=== PATIENT | female | born 1970 | race Caucasian/White ===

== ENCOUNTER 2020-07-07 07:44 | Emergency (ER) | payer OTHER, SELFPAY ==
--- NOTE | 2020-07-07 07:58 | ED_ITS ---
HPI - Back Pain/Injury General Chief Complaint: Back Pain/Injury Stated Complaint: BACK PAIN X'S WEEKS ,NO INJURY Time Seen by Provider: 07/07/20 07:58 Source: patient, EMS and old records reviewed Mode of arrival: EMS Limitations: no limitations History of Present Illness MD elicited complaint: back pain Pertinent past history: prior back pain Onset (ago): month(s) (2+) Timing: constant Severity: similar to previous episodes Quality: sharp Location: lumbar spine Radiation: buttocks and left upper leg Exacerbating factors: movement Relieving factors: none Context: unknown Associated symptoms: numbness (feels tingling in left upper thigh) Treatments prior to arrival: prescription analgesics (she takes oxycontin 20mg BID daily and PRN 10mg oxycodone - states no relief of pain) Work related injury: No Related Data Home Medications Medication Instructions Recorded Confirmed amlodipine 10 mg PO DAILY 07/07/20 07/07/20 aspirin 81 mg PO DAILY 07/07/20 07/07/20 bupropion HCl 300 mg PO DAILY@1200 07/07/20 07/07/20 chlorthalidone 25 mg PO DAILY 07/07/20 07/07/20 cholecalciferol (vitamin D3) 4,000 unit PO DAILY 07/07/20 07/07/20 [Vitamin D3] docusate sodium 100 mg PO BID 07/07/20 07/07/20 dulaglutide [Trulicity] 1.5 mg SUBCUT Q7D 07/07/20 07/07/20 finasteride 5 mg PO DAILY 07/07/20 07/07/20 gabapentin 300 mg PO DAILY@1200 07/07/20 07/07/20 gabapentin 600 mg PO BID 07/07/20 07/07/20 insulin aspart U-100 [Novolog See Protocol SUBCUT QIDACHS 07/07/20 07/07/20 Flexpen U-100 Insulin] lamotrigine 200 mg PO DAILY 07/07/20 07/07/20 lisinopril 5 mg PO DAILY 07/07/20 07/07/20 loratadine 10 mg PO DAILY 07/07/20 07/07/20 lorazepam 1 tab PO TID PRN 07/07/20 07/07/20 nabumetone 500 tab PO BID 07/07/20 07/07/20 nystatin [Nyamyc] 1 applic TOPICAL QID 07/07/20 07/07/20 oxybutynin chloride 10 mg PO DAILY 07/07/20 07/07/20 oxycodone 10 mg PO DAILY PRN 07/07/20 07/07/20 oxycodone [OxyContin] 10 mg PO BID 07/07/20 07/07/20 propranolol 12 mg PO DAILY 07/07/20 07/07/20 quetiapine 25 mg PO BID@0800,1300 07/07/20 07/07/20 quetiapine [Seroquel] 50 mg PO BEDTIME 07/07/20 07/07/20 rosuvastatin 40 mg PO DAILY 07/07/20 07/07/20 zolpidem 10 mg PO BEDTIME PRN 07/07/20 07/07/20 Allergies Allergy/AdvReac Type Severity Reaction Status Date / Time metformin Allergy Severe Unknown Verified 07/07/20 08:27 acetaminophen [From TYLENOL] Allergy Unknown HIVES Verified 07/07/20 08:27 clonazepam [From KLONOPIN] Allergy Unknown HIVES Verified 07/07/20 08:27 Review of Systems Review of Systems: Constitutional : No Weight loss, No Fever, No Chills, ENT/Mouth : No Hearing loss, No Ear Pain, No Nasal Congestion Cardiovascular : No Chest Pain, No SOB Respiratory : No Cough, No Dyspnea Gastrointestinal : No Nausea, No Vomiting, No Diarrhea, No abdominal Pain Genitourinary : No Dysuria, No Urinary Frequency, No Hematuria Musculoskeletal : positive back pain Skin : No Skin Lesions, No rash Neuro : No Weakness, no loss of bowel or bladder incontinence, no saddle anesthesia, tingling in left upper thigh PMFSH Past Medical History Medical History (Updated 07/07/20 @ 14:43 by Erika Nina DO) Agoraphobia Anxiety Asthma Borderline personality disorder Chronic back pain Depression Diabetes Obesity Surgical History (Updated 07/07/20 @ 08:02 by Erika Nina DO) H/O oophorectomy History of appendectomy Social History Social History (Updated 07/07/20 @ 08:02 by Erika Nina DO) Smoking Status: Current every day smoker Use of substances other than those prescribed or required for medical reasons: No Advance Directives: No Advance Directives Information Provided: No Physical Exam Vital Signs: Vital Signs: Vital Signs Pulse Resp BP Pulse Ox 07/07/20 11:12 100 144/66 H 97 07/07/20 10:08 100 17 144/66 H 97 07/07/20 09:11 107 H 18 136/67 97 07/07/20 07:59 114 H 17 149/70 H 97 Body Mass Index 45.6 Appearance: Alert. Oriented X3. Anxious tearful, mild distress. Eyes: Pupils equal, round and reactive to light. ENT: Pharynx normal. Neck: Normal inspection. Neck supple. CVS: Normal heart rate and rhythm. Pulses normal. Respiratory: No respiratory distress. Breath sounds normal. Abdomen: Soft and nontender. Back: ttp along lower back Skin: Skin warm and dry. Normal skin color. Normal skin turgor. Extremities: No lower extremity edema. No calf ttp Neuro: Oriented X 3. No motor deficit. No sensory deficit. L5/5 bilaterally Course Course Course Narrative: even with dilaudid and ativan prior to MRI she refused unsure at this time how to further proceed will offer rehab as symptoms > 1 month, no b/b incontinence, no saddle anesthesia does have numbness per her reports of left upper thigh but this is > 1 month doubt CE and she refuses MRI, she wants rehab at this time - PT and CM ordered Reevaluation(s) Reevaluation #1: patient was offered assisted rehab but she refused, she now states she wants to leave, she has been up on her own to the bathroom and she has also sat up on her own, at this time due to not being able to find the rehab she wants she is getting up and leaving the department MDM - Back Pain/Injury MDM Narrative Medical decision making narrative: 49 yo female with hx of chronic back pain no IVDA, no fevers, no AC therapy reports her pain is so severe with LLE tingling in thigh that she cannot get out of bed or leave her house, she is on high dose narcotics already, at this time will need basic labs, IV pain medications, MRI to assess for impingement given her degree of pain. Lab Data Result diagrams: 07/07/20 08:20 07/07/20 08:20 Labs: Lab Results 07/07/20 07/07/20 07/07/20 Range/Units 08:20 08:20 08:20 WBC 13.9 H (4.8-10.8) X10*3/uL RBC 4.51 (4.20-5.50) X10*6/uL Hgb 13.7 (12.0-16.0) g/dl Hct 39.9 (37-47) % MCV 88.5 (80-98) fL MCH 30.4 (27.0-33.0) pg MCHC 34.3 (31.0-35.0) g/dl RDW 13.0 (11.0-16.0) % Plt Count 324 (160-400) X10*3/uL MPV 9.8 (9.4-12.3) fL Immature Gran % (Auto) 0.4 (0.0-0.4) % Neut % (Auto) 86.8 H (45-73) % Lymph % (Auto) 8.5 L (20-40) % [place] % (Auto) 3.2 (2-11) % Eos % (Auto) 0.8 (0-4) % Baso % (Auto) 0.3 (0-2) % Lymph # (Auto) 1.2 (1.2-4.9) X10*3/uL [place] # (Auto) 0.5 (0.1-1.2) X10*3/uL Eos # (Auto) 0.1 (0.0-0.4) X10*3/uL Baso # (Auto) 0.0 (0.0-0.2) X10*3/uL Abs Immat Gran (auto) 0.05 H (0.00-0.03) X10*3/uL Absolute Neuts (auto) 12.1 H (2.0-8.3) X10*3/uL Absolute Nucleated RBC 0.000 (0.0-0.012) X10*3/uL Nucleated RBC % (auto) 0.0 (0.0-0.2) /100WBC Hold Blue Top SEE NOTE Sodium 130 L (135-145) mmol/L Potassium 4.7 (3.3-5.1) mmol/l Chloride 94 L (96-108) mmol/L Carbon Dioxide 21 L (22-29) mmol/L Anion Gap 20 (12-20) BUN 14 (9-16) mg/dL Creatinine 1.04 (0.5-1.4) mg/dL Estim Creat Clear Calc 95.8 Estimated GFR 56 Random Glucose 381 H* (60-115) mg/dL Calcium 10.0 (8.4-10.2) mg/dL Magnesium 1.7 (1.6-2.6) mg/dL Urine Color Urine Appearance Urine pH Ur Specific [place] Urine Protein Urine Glucose (UA) Urine Ketones Urine Blood Urine Nitrite Ur Leukocyte Esterase Urine RBC Urine WBC Urine WBC Clumps Ur Squamous Epith Cells Ur Renal Epithelial Cell Urine Crystals [place] Biurate Crystals Calcium Carbonate Cryst Calcium Phosphate Cryst Calcium Oxalate Crystal Leucine Crystals Cystine Crystals Uric Acid Crystals Triple Phos Crystals Tyrosine Crystals Other Crystals Amorphous Sediment Urine Bacteria Epithelial Casts Fatty Casts Hyaline Casts Granular Casts Waxy Casts RBC Casts WBC Casts Other Casts Urine Mucus Urine Trichomonas Urine Yeast Urine Sperm Ur Oval Fat Bodies Coronavirus (PCR) (Negative) 07/07/20 07/07/20 07/07/20 Range/Units 10:31 10:31 12:57 WBC (4.8-10.8) X10*3/uL RBC (4.20-5.50) X10*6/uL Hgb (12.0-16.0) g/dl Hct (37-47) % MCV (80-98) fL MCH (27.0-33.0) pg MCHC (31.0-35.0) g/dl RDW (11.0-16.0) % Plt Count (160-400) X10*3/uL MPV (9.4-12.3) fL Immature Gran % (Auto) (0.0-0.4) % Neut % (Auto) (45-73) % Lymph % (Auto) (20-40) % [place] % (Auto) (2-11) % Eos % (Auto) (0-4) % Baso % (Auto) (0-2) % Lymph # (Auto) (1.2-4.9) X10*3/uL [place] # (Auto) (0.1-1.2) X10*3/uL Eos # (Auto) (0.0-0.4) X10*3/uL Baso # (Auto) (0.0-0.2) X10*3/uL Abs Immat Gran (auto) (0.00-0.03) X10*3/uL Absolute Neuts (auto) (2.0-8.3) X10*3/uL Absolute Nucleated RBC (0.0-0.012) X10*3/uL Nucleated RBC % (auto) (0.0-0.2) /100WBC Hold Blue Top Sodium (135-145) mmol/L Potassium (3.3-5.1) mmol/l Chloride (96-108) mmol/L Carbon Dioxide (22-29) mmol/L Anion Gap (12-20) BUN (9-16) mg/dL Creatinine (0.5-1.4) mg/dL Estim Creat Clear Calc Estimated GFR Random Glucose (60-115) mg/dL Calcium (8.4-10.2) mg/dL Magnesium (1.6-2.6) mg/dL Urine Color Cancelled YELLOW Urine Appearance Cancelled HAZY Urine pH Cancelled 6.0 Ur Specific [place] Cancelled 1.015 Urine Protein Cancelled 1+ H Urine Glucose (UA) Cancelled 250 H Urine Ketones Cancelled 5 Urine Blood Cancelled NEG Urine Nitrite Cancelled NEG Ur Leukocyte Esterase Cancelled NEG Urine RBC Cancelled 0-2 Urine WBC Cancelled 0-2 Urine WBC Clumps Cancelled Ur Squamous Epith Cells Cancelled 2+ Ur Renal Epithelial Cell Cancelled Urine Crystals Cancelled [place] Biurate Crystals Cancelled Calcium Carbonate Cryst Cancelled Calcium Phosphate Cryst Cancelled Calcium Oxalate Crystal Cancelled Leucine Crystals Cancelled Cystine Crystals Cancelled Uric Acid Crystals Cancelled Triple Phos Crystals Cancelled Tyrosine Crystals Cancelled Other Crystals Cancelled Amorphous Sediment Cancelled Urine Bacteria Cancelled TRACE Epithelial Casts Cancelled Fatty Casts Cancelled Hyaline Casts Cancelled Granular Casts Cancelled Waxy Casts Cancelled RBC Casts Cancelled WBC Casts Cancelled Other Casts Cancelled Urine Mucus Cancelled Urine Trichomonas Cancelled Urine Yeast Cancelled Urine Sperm Cancelled Ur Oval Fat Bodies Cancelled Coronavirus (PCR) NEGATIVE (Negative) ECG Data Attestation: I personally reviewed and interpreted this ECG as follows: ECG interpretation date: 07/07/20 ECG interpretation time: 08:58 Interpretation: Rate: 110 Rhythm: sinus tachycardia [place]: normal Normal P waves. Normal RASHI. Normal QRS complex. ST T wave : normal qTC: normal prior studies: normal, no acute ischemia The study has been interpreted contemporaneously by me. . 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 Prescriptions: No Action nystatin [Nyamyc] 100,000 unit/gram powder 1 applic topical QID RF: 0 insulin aspart U-100 [Novolog Flexpen U-100 Insulin] 100 unit/mL (3 mL) insulin pen See Protocol unit subcut QIDACHS RF: 0 oxycodone [OxyContin] 20 mg tablet,oral only,ext.rel.12 hr 10 mg PO BID RF: 0 Trulicity 1.5 mg/0.5 mL pen injector 1.5 mg subcut Q7D RF: 0 quetiapine 25 mg tablet 25 mg PO BID@0800,1300 RF: 0 lamotrigine 200 mg tablet 200 mg PO DAILY RF: 0 oxybutynin chloride 10 mg tablet extended release 24hr 10 mg PO DAILY RF: 0 chlorthalidone 25 mg tablet 25 mg PO DAILY RF: 0 aspirin 81 mg tablet,delayed release (DR/EC) 81 mg PO DAILY RF: 0 lorazepam 2 mg tablet 1 tab PO TID PRN (Reason: Anxiety) RF: 0 amlodipine 10 mg tablet 10 mg PO DAILY RF: 0 docusate sodium 100 mg capsule 100 mg PO BID RF: 0 lisinopril 5 mg tablet 5 mg PO DAILY RF: 0 propranolol 120 mg capsule,extended release 24 hr 12 mg PO DAILY RF: 0 zolpidem 10 mg tablet 10 mg PO BEDTIME PRN (Reason: Insomnia) RF: 0 finasteride 5 mg tablet 5 mg PO DAILY RF: 0 loratadine 10 mg tablet 10 mg PO DAILY RF: 0 nabumetone 500 mg tablet 500 tab PO BID RF: 0 rosuvastatin 40 mg tablet 40 mg PO DAILY RF: 0 bupropion HCl 300 mg tablet extended release 24 hr 300 mg PO DAILY@1200 RF: 0 oxycodone 10 mg tablet 10 mg PO DAILY PRN (Reason: Pain (Scale Score 4-6)) RF: 0 cholecalciferol (vitamin D3) [Vitamin D3] 50 mcg (2,000 unit) capsule 4,000 unit PO DAILY RF: 0 quetiapine [Seroquel] 50 mg Tablet 50 mg PO BEDTIME RF: 0 gabapentin 300 mg Capsule 300 mg PO DAILY@1200 RF: 0 gabapentin 300 mg Tablet 600 mg PO BID RF: 0 Referrals: Physician,Unknown [Primary Care Provider] - 2 days
[2020-07-07 07:59] VITALS: BP 149/70; PULSE 114; PULSE 125; RESP 17; O2SAT 97; O2SAT 99; BMI 45.6
[2020-07-07 08:25] LABS: MANUAL DIFF FLAG NO
[2020-07-07 08:26] LABS: Basophils Percent Auto 0.3 % (0-2); Eosinophils Absolute Auto 0.1 X10*3/uL (0.0-0.4); Eosinophils Percent Auto 0.8 % (0-4); Hematocrit 39.9 % (37-47); Hemoglobin 13.7 g/dl (12.0-16.0); Imm Gran Abs Auto 0.05 X10*3/uL (0.00-0.03); Imm Gran Pct Auto 0.4 % (0.0-0.4); Lymphocytes Absolute Auto 1.2 X10*3/uL (1.2-4.9); Lymphocytes Percent Auto 8.5 % (20-40); Mean Corpuscular HGB Conc 34.3 g/dl (31.0-35.0); Mean Corpuscular Hemoglobin 30.4 pg (27.0-33.0); Mean Corpuscular Volume 88.5 fL (80-98); Mean Platelet Volume 9.8 fL (9.4-12.3); Monocytes Absolute Auto 0.5 X10*3/uL (0.1-1.2); Monocytes Percent Auto 3.2 % (2-11); Neutrophils Absolute Auto 12.1 X10*3/uL (2.0-8.3); Neutrophils Percent Auto 86.8 % (45-73); Platelet Count 324 X10*3/uL (160-400); Red Blood Count 4.51 X10*6/uL (4.20-5.50); White Blood Count 13.9 X10*3/uL (4.8-10.8)
[2020-07-07] MEDS: Cyclobenzaprine HCl 10 MG TABLET PO (08:28)
[2020-07-07] MEDS: HYDROmorphone HCl 1 MG/ML SYRINGE IVPUSH ×2 (08:29→09:55)
--- NOTE | 2020-07-07 09:00 | ECG_ITS ---
Test Reason : BACK PAIN Blood Pressure : / mmHG Vent. Rate : 110 BPM Atrial Rate : 110 BPM P-R Int : 132 ms QRS Dur : 078 ms QT Int : 384 ms P-R-T Axes : 079 042 053 degrees QTc Int : 519 ms Sinus tachycardia RSR' or QR pattern in V1 suggests right ventricular conduction delay Borderline ECG When compared with ECG of 15-MAY-2020 16:38, Heart rate has increased Referred By: Erika Nina Electronically Signed By:NICOLE GONZALEZ MD
[2020-07-07 09:03] LABS: Anion Gap 20 (12-20); Blood Urea Nitrogen 14 mg/dL (9-16); Carbon Dioxide 21 mmol/L (22-29); Chloride 94 mmol/L (96-108); Creatinine Clr Calc Pharmacy 95.8; Estimated Glomerular Filt Rate 56; Glucose Random 381 mg/dL (60-115); Magnesium 1.7 mg/dL (1.6-2.6); Potassium 4.7 mmol/l (3.3-5.1); Sodium 130 mmol/L (135-145)
[2020-07-07 09:11] VITALS: BP 136/67; PULSE 107; RESP 18; O2SAT 97
[2020-07-07] MEDS: 0.9 % Sodium Chloride 1,000 ML 999 ML IVCONT (09:21)
[2020-07-07] MEDS: Insulin Regular, Human 100 UNIT/ML 3 ML VIAL SUBCUT (09:21)
[2020-07-07] MEDS: Ibuprofen 400 MG TABLET PO (09:24)
[2020-07-07] MEDS: LORazepam 2 MG/ML VIAL 1 MG IVPUSH (09:55)
[2020-07-07 10:08] VITALS: BP 144/66; PULSE 100; RESP 17; O2SAT 97
[2020-07-07 10:52] LABS: Glucose Urine UA 250 MG/DL (NEG); Leukocyte Esterase Urine NEG (NEG); Nitrite Urine NEG (NEG); Specific Gravity - Urine 1.015 (1.005-1.025); Urine Blood NEG (NEG); Urine Ketones 5 MG/DL (NEG); Urine Protein 1+ MG/DL (NEG-TRACE)
[2020-07-07 10:54] LABS: Appearance Urine HAZY; Color Urine YELLOW
[2020-07-07 11:00] LABS: Bacteria Urine TRACE /LPF; RBC Urine 0-2 /HPF (0); Squamous Epithelial Cell Urine 2+ /LPF; WBC Urine 0-2 /HPF (0-4)
[2020-07-07 11:12] VITALS: BP 144/66; PULSE 100; O2SAT 97
--- NOTE | 2020-07-07 11:18 | PC.NURSE ---
INTRODUCED SELF TO PT, REPORTING TOLERATING PAIN AT THIS TIME 6/10 MID BACK PAIN, LYING ON R SIDE. JUST SEEN BY PT.
--- NOTE | 2020-07-07 12:32 | PC.NURSE ---
PER FRANCISCO CASE MGMT, PT RQUESTING REHAB PLACEMENT. POSSIBLY GOING TO [facility]. MED REC REQUESTED PT WANTING PB&J. REMAINS IN PAIN. DIFFICULT TO CONSOLE.
--- NOTE | 2020-07-07 13:06 | MHC.CM.ED ---
MET WITH PT. PT AGREEABLE TO SNF, BUT TEARFUL.HISTORY OF BACK PAIN SINCE APRIL AND FEELS HOPELESS. HAS AGORAPHOBIA AND HAS CONCERNS ABOUT SNF PLACEMENT WILL SEND REFERRAL TO SNF.
[2020-07-07 14:03] LABS: SARS COV2 PCR INHOUSE NEGATIVE (Negative)
--- NOTE | 2020-07-07 14:32 | MHC.CM.ED ---
Pt eligible for LTC with payment monthly of $877/month, not eligible for SNL for rehab. Pt very tearful, very upset. States she cannot afford to go the LTC and states she cannot go home. Requesting to call family member. States all she can do is come back to ED. Dr. Nina aware. Medically cleared for discharge. Pt. chooses to leave against medical advice. aware. RN aware.
--- NOTE | 2020-07-07 14:35 | PC.NURSE ---
PT VERY UPSET, TEARFUL ABOUT COST OF ATTENDING REHAB.
--- NOTE | 2020-07-07 15:00 | PC.NURSE ---
PT INSISTING ON LEAVING AMA, DISGRUNTLED WITH FINANCIAL BURDEN OF HOME [facility]. HER ARRRIVED TO PICK HER UP, PT REFUSED TO WAIT, STATING I CAN'T LEAVE HIM WAITING, HE'S JUST GONNA LEAVE ME . PT BECOMING INCREASINGLY AGITATED AND DISMISSIVE OF ALL STAFF.
== END 2020-07-07 14:30 | disposition left against medical advice (07) ==
PROVIDERS: Emergency Provider Emergency Medicine
DX: M54.42 Lumbago with sciatica, left side (principal); Z20.828 Contact with and (suspected) exposure to other viral communicable diseases; E11.9 Type 2 diabetes mellitus without complications; F60.3 Borderline personality disorder; F17.200 Nicotine dependence, unspecified, uncomplicated
CPT/HCPCS: 36415; 80048; 81001; 83735; 85025; 87635; 93005; 96361; 96374; 96375; 96376; 97162; 99284; J1170; J2060

== ENCOUNTER 2021-03-28 21:41 | Emergency (ER) | payer OTHER, SELFPAY ==
--- NOTE | ~2021-03-28 | CT_ITS ---
EXAMINATION: CT ABDOMEN AND PELVIS WITHOUT CONTRAST CLINICAL INFORMATION: Left flank pain COMPARISON: None TECHNIQUE: Multidetector volumetric imaging was performed from the superior aspect of the liver through the pubic symphysis. Sagittal and coronal reformatted images were obtained on the technologist's workstation. This CT examination was performed using dose optimization techniques as appropriate, variously including the following: *Automated exposure control *Adjustment of mA and/or kV according to patient size (this includes techniques or standardized protocols for targeted exams where dose is matched to indication/reason for exam; i.e. extremities or head) *Use of iterative reconstruction technique DLP: 1482 mGy-cm FINDINGS: LUNG BASES: The visualized lung bases are unremarkable. LIVER, GALLBLADDER, AND BILIARY TREE: The liver is normal in size and shape with decreased attenuation. No focal hepatic lesion or biliary ductal dilatation is present. The gallbladder is unremarkable with no evidence of radiopaque gallstones, gallbladder wall thickening, or obvious pericholecystic inflammatory changes. PANCREAS: Unremarkable. SPLEEN: Unremarkable. ADRENAL GLANDS: Unremarkable. KIDNEYS AND URETERS: The kidneys are normal in size, shape, and attenuation. No hydronephrosis, hydroureter, or calculi seen. No perinephric stranding. BLADDER: Unremarkable. GASTROINTESTINAL TRACT: The stomach is unremarkable. Normal caliber small bowel. No obstruction. There is colonic diverticulosis without diverticulitis. The appendix is not seen. No inflammatory changes of the cecum to suggest appendicitis. No free air or free fluid. ABDOMINAL WALL: No significant hernia is appreciated. LYMPH NODES: Normal. VASCULAR: Normal caliber aorta with mild atherosclerotic calcification. PELVIC VISCERA: The uterus and adnexa are unremarkable. OSSEOUS STRUCTURES: No acute or suspicious osseous abnormality. Mild degenerative changes of the spine. CT/CT abdomen pelvis wo con IMPRESSION: Hepatic steatosis. No acute findings in the abdomen or pelvis. No hydronephrosis or nephrolithiasis.
[2021-03-28 22:00] VITALS: BP 160/70; BP 173/79; PULSE 117; PULSE 87; RESP 18; TEMP 37.1; O2SAT 98; BMI 63.8
--- NOTE | 2021-03-28 22:36 | ED.FEMALEGU ---
HPI - Female Genitourinary General Chief complaint: Urogenital-Female Stated complaint: flank pain x 3 days Time Seen by Provider: 03/28/21 22:36 Source: patient Mode of arrival: EMS Limitations: no limitations History of Present Illness HPI Narrative: Patient history of chronic low back pain on oxycodone and OxyContin complaining of increased pain and left flank for last 3 days with dysuria and frequency patient diabetic and does get UTI very often no nausea no vomiting no abdominal pain no fever or chills no history of kidney stone in the past no hematuria no vaginal discharge Related Data Home Medications Medication Instructions Recorded Confirmed amlodipine 10 mg PO DAILY 07/07/20 07/07/20 aspirin 81 mg PO DAILY 07/07/20 07/07/20 bupropion HCl 300 mg PO DAILY@1200 07/07/20 07/07/20 chlorthalidone 25 mg PO DAILY 07/07/20 07/07/20 cholecalciferol (vitamin D3) 4,000 unit PO DAILY 07/07/20 07/07/20 [Vitamin D3] docusate sodium 100 mg PO BID 07/07/20 07/07/20 dulaglutide [Trulicity] 1.5 mg SUBCUT Q7D 07/07/20 07/07/20 finasteride 5 mg PO DAILY 07/07/20 07/07/20 gabapentin 300 mg PO DAILY@1200 07/07/20 07/07/20 gabapentin 600 mg PO BID 07/07/20 07/07/20 insulin aspart U-100 [Novolog See Protocol SUBCUT QIDACHS 07/07/20 07/07/20 Flexpen U-100 Insulin] lamotrigine 200 mg PO DAILY 07/07/20 07/07/20 lisinopril 5 mg PO DAILY 07/07/20 07/07/20 loratadine 10 mg PO DAILY 07/07/20 07/07/20 lorazepam 1 tab PO TID PRN 07/07/20 07/07/20 nabumetone 500 tab PO BID 07/07/20 07/07/20 nystatin [Nyamyc] 1 applic TOPICAL QID 07/07/20 07/07/20 oxybutynin chloride 10 mg PO DAILY 07/07/20 07/07/20 oxycodone 10 mg PO DAILY PRN 07/07/20 07/07/20 oxycodone [OxyContin] 10 mg PO BID 07/07/20 07/07/20 propranolol 12 mg PO DAILY 07/07/20 07/07/20 quetiapine 25 mg PO BID@0800,1300 07/07/20 07/07/20 quetiapine [Seroquel] 50 mg PO BEDTIME 07/07/20 07/07/20 rosuvastatin 40 mg PO DAILY 07/07/20 07/07/20 zolpidem 10 mg PO BEDTIME PRN 07/07/20 07/07/20 Allergies Allergy/AdvReac Type Severity Reaction Status Date / Time metformin Allergy Severe Unknown Verified 07/07/20 08:27 acetaminophen [From TYLENOL] Allergy Unknown HIVES Verified 07/07/20 08:27 clonazepam [From KLONOPIN] Allergy Unknown HIVES Verified 07/07/20 08:27 Review of Systems Review of Systems: Yes all other systems are reviewed and are negative PMFSH Past Medical History Medical History Agoraphobia Anxiety Asthma Borderline personality disorder Chronic back pain Depression Diabetes Obesity Surgical History H/O oophorectomy History of appendectomy Social History Social History Advance Directives: No Advance Directives Information Provided: No Patient : No Physical Exam Vital Signs: Vital Signs: Last Vital Signs Temp 99.2 F 03/29/21 01:04 Pulse 116 H 03/29/21 01:04 Resp 20 03/29/21 01:06 BP 171/78 H 03/29/21 01:04 Pulse Ox 94 03/29/21 01:04 Body Mass Index 63.8 Appearance: Alert. Oriented X3. Obese in moderate distress. Eyes: PERRLA, ENT: Pharynx normal. Oral Mucosa moist Neck: Normal inspection. Neck supple. CVS: Normal heart rate and rhythm. Pulses normal. Respiratory: No respiratory distress. Equal air entry bilateral, no wheezing/rales/rhonchi Abdomen: Soft and nontender. Bowel sounds are present, no mass palpable, right CVA tenderness ++ Skin: Skin warm and dry. Normal skin color. Normal skin turgor. Extremities: No lower extremity edema. No calf tenderness Neuro: Oriented X 3. No motor deficit. MDM - Female Genitourinary MDM Narrative Medical decision making narrative: Patient with chronic back pain on heavy dose of oxycodone and OxyContin CT scan is negative for any acute renal pathology. Patient able to give urine sample at this time. Feeling comfortable after pain medication patient received 2 L IV fluids will wait for her to urinate and check the urine Lab Data Attestation: I reviewed the patient's lab results. Result diagrams: 03/28/21 23:10 03/28/21 23:10 Labs: Lab Results 03/28/21 03/28/21 Range/Units 23:10 23:10 WBC 13.8 H (4.8-10.8) X10*3/uL RBC 4.62 (4.20-5.50) X10*6/uL Hgb 14.0 (12.0-16.0) g/dl Hct 41.0 (37-47) % MCV 88.7 (80-98) fL MCH 30.3 (27.0-33.0) pg MCHC 34.1 (31.0-35.0) g/dl RDW 13.0 (11.0-16.0) % Plt Count 320 (160-400) X10*3/uL MPV 9.2 L (9.4-12.3) fL Immature Gran % (Auto) 0.7 H (0.0-0.4) % Neut % (Auto) 77.5 H (45-73) % Lymph % (Auto) 14.1 L (20-40) % [place] % (Auto) 5.6 (2-11) % Eos % (Auto) 1.7 (0-4) % Baso % (Auto) 0.4 (0-2) % Lymph # (Auto) 1.9 (1.2-4.9) X10*3/uL [place] # (Auto) 0.8 (0.1-1.2) X10*3/uL Eos # (Auto) 0.2 (0.0-0.4) X10*3/uL Baso # (Auto) 0.1 (0.0-0.2) X10*3/uL Abs Immat Gran (auto) 0.09 H (0.00-0.03) X10*3/uL Absolute Neuts (auto) 10.7 H (2.0-8.3) X10*3/uL Absolute Nucleated RBC 0.000 (0.0-0.012) X10*3/uL Nucleated RBC % (auto) 0.0 (0.0-0.2) /100WBC Sodium 132 L (135-145) mmol/L Potassium 4.7 (3.3-5.1) mmol/L Chloride 92 L (96-108) mmol/L Carbon Dioxide 25 (22-29) mmol/L Anion Gap 20 (12-20) BUN 17 H (9-16) mg/dL Creatinine 0.98 (0.5-1.4) mg/dL Estim Creat Clear Calc 124.2 Estimated GFR > 60 Random Glucose 334 H (60-115) mg/dL Calcium 10.5 H (8.4-10.2) mg/dL Total Bilirubin 0.4 (0.0-1.0) mg/dL AST 18 (5-31) U/L ALT 20 (0-31) U/L Alkaline Phosphatase 150 H (39-117) U/L Total Protein 7.5 (6.5-8.0) g/dL Albumin 4.1 (3.5-5.0) g/dL Discharge Plan Discharge Clinical Impression: Back pain Qualifiers: Back pain location: low back pain Chronicity: chronic Back pain laterality: right Sciatica presence: without sciatica Qualified Code(s): M54.5 - Low back pain Patient Disposition: Home, Self-Care Instructions: Back Pain (ED) Additional Instructions: Drink plenty of fluids and continue taking your pain medication follow-up with PCP Prescriptions: No Action nystatin [Nyamyc] 100,000 unit/gram powder 1 applic topical QID RF: 0 insulin aspart U-100 [Novolog Flexpen U-100 Insulin] 100 unit/mL (3 mL) insulin pen See Protocol unit subcut QIDACHS RF: 0 oxycodone [OxyContin] 20 mg tablet,oral only,ext.rel.12 hr 10 mg PO BID RF: 0 Trulicity 1.5 mg/0.5 mL pen injector 1.5 mg subcut Q7D RF: 0 quetiapine 25 mg tablet 25 mg PO BID@0800,1300 RF: 0 lamotrigine 200 mg tablet 200 mg PO DAILY RF: 0 oxybutynin chloride 10 mg tablet extended release 24hr 10 mg PO DAILY RF: 0 chlorthalidone 25 mg tablet 25 mg PO DAILY RF: 0 aspirin 81 mg tablet,delayed release (DR/EC) 81 mg PO DAILY RF: 0 lorazepam 2 mg tablet 1 tab PO TID PRN (Reason: Anxiety) RF: 0 amlodipine 10 mg tablet 10 mg PO DAILY RF: 0 docusate sodium 100 mg capsule 100 mg PO BID RF: 0 lisinopril 5 mg tablet 5 mg PO DAILY RF: 0 propranolol 120 mg capsule,extended release 24 hr 12 mg PO DAILY RF: 0 zolpidem 10 mg tablet 10 mg PO BEDTIME PRN (Reason: Insomnia) RF: 0 finasteride 5 mg tablet 5 mg PO DAILY RF: 0 loratadine 10 mg tablet 10 mg PO DAILY RF: 0 nabumetone 500 mg tablet 500 tab PO BID RF: 0 rosuvastatin 40 mg tablet 40 mg PO DAILY RF: 0 bupropion HCl 300 mg tablet extended release 24 hr 300 mg PO DAILY@1200 RF: 0 oxycodone 10 mg tablet 10 mg PO DAILY PRN (Reason: Pain (Scale Score 4-6)) RF: 0 cholecalciferol (vitamin D3) [Vitamin D3] 50 mcg (2,000 unit) capsule 4,000 unit PO DAILY RF: 0 quetiapine [Seroquel] 50 mg Tablet 50 mg PO BEDTIME RF: 0 gabapentin 300 mg Capsule 300 mg PO DAILY@1200 RF: 0 gabapentin 300 mg Tablet 600 mg PO BID RF: 0
[2021-03-28 22:58] VITALS: BP 134/84; PULSE 110; RESP 24; O2SAT 94
[2021-03-28 23:14] LABS: Basophils Absolute Auto 0.1 X10*3/uL (0.0-0.2); Basophils Percent Auto 0.4 % (0-2); Eosinophils Absolute Auto 0.2 X10*3/uL (0.0-0.4); Eosinophils Percent Auto 1.7 % (0-4); Imm Gran Abs Auto 0.09 X10*3/uL (0.00-0.03); Imm Gran Pct Auto 0.7 % (0.0-0.4); Lymphocytes Absolute Auto 1.9 X10*3/uL (1.2-4.9); Lymphocytes Percent Auto 14.1 % (20-40); MANUAL DIFF FLAG NO; Mean Corpuscular HGB Conc 34.1 g/dl (31.0-35.0); Mean Corpuscular Hemoglobin 30.3 pg (27.0-33.0); Mean Corpuscular Volume 88.7 fL (80-98); Mean Platelet Volume 9.2 fL (9.4-12.3); Monocytes Absolute Auto 0.8 X10*3/uL (0.1-1.2); Monocytes Percent Auto 5.6 % (2-11); Neutrophils Absolute Auto 10.7 X10*3/uL (2.0-8.3); Neutrophils Percent Auto 77.5 % (45-73); Platelet Count 320 X10*3/uL (160-400); Red Blood Count 4.62 X10*6/uL (4.20-5.50); White Blood Count 13.8 X10*3/uL (4.8-10.8)
[2021-03-28] MEDS: ondansetron HCL 4 MG/2 ML VIAL IVPUSH (23:16)
[2021-03-28] MEDS: 0.9 % Sodium Chloride 1,000 ML 999 ML IVCONT (23:16)
[2021-03-28] MEDS: Morphine Sulfate 4 MG/ML CARTRIDGE IVPUSH (23:17)
[2021-03-28 23:46] LABS: Alanine Aminotransferase 20 U/L (0-31); Albumin Level 4.1 g/dL (3.5-5.0); Alkaline Phosphatase 150 U/L (39-117); Anion Gap 20 (12-20); Aspartate Amino Transferase 18 U/L (5-31); Bilirubin Total 0.4 mg/dL (0.0-1.0); Blood Urea Nitrogen 17 mg/dL (9-16); Calcium 10.5 mg/dL (8.4-10.2); Carbon Dioxide 25 mmol/L (22-29); Chloride 92 mmol/L (96-108); Creatinine Clr Calc Pharmacy 124.2; Estimated Glomerular Filt Rate > 60; Glucose Random 334 mg/dL (60-115); Potassium 4.7 mmol/L (3.3-5.1); Sodium 132 mmol/L (135-145); Total Protein 7.5 g/dL (6.5-8.0)
[2021-03-29 01:04] VITALS: BP 171/78; PULSE 116; RESP 20; TEMP 37.3; O2SAT 94
[2021-03-29] MEDS: Insulin Lispro 100 UNIT/ML 3 ML VIAL 8 UNIT SUBCUT (01:05)
[2021-03-29] MEDS: Ketorolac Tromethamine 30 MG/ML VIAL IVPUSH (01:05)
[2021-03-29 01:06] VITALS: RESP 20
[2021-03-29] MEDS: HYDROmorphone HCl 1 MG/ML SYRINGE IVPUSH (01:06)
[2021-03-29] MEDS: 0.9 % Sodium Chloride 1,000 ML 999 ML IVCONT (01:39)
[2021-03-29 02:17] LABS: Glucose Urine UA 250 MG/DL (NEG); Leukocyte Esterase Urine NEG (NEG); Nitrite Urine NEG (NEG); Specific Gravity - Urine >= 1.030 (1.005-1.025); Urine Blood NEG (NEG); Urine Ketones NEG (NEG); Urine Protein 3+ MG/DL (NEG-TRACE)
[2021-03-29 02:18] LABS: Appearance Urine HAZY; Color Urine YELLOW
[2021-03-29 02:29] LABS: Bacteria Urine 2+ /LPF; Granular Casts Urine 0-2 /LPF; Mucus Urine 2+ /LPF; Squamous Epithelial Cell Urine 2+ /LPF
== END 2021-03-29 03:00 | disposition home or self-care (01) ==
PROVIDERS: Emergency Provider Internal Medicine
DX: M54.5 Low back pain (principal); E11.9 Type 2 diabetes mellitus without complications; Z79.4 Long term (current) use of insulin; Z79.891 Long term (current) use of opiate analgesic; Z79.899 Other long term (current) drug therapy; Z87.440 Personal history of urinary (tract) infections
CPT/HCPCS: 36415; 74176; 80053; 81001; 85025; 96361; 96374; 96375; 99284; J1170; J1885; J2270; J2405

== ENCOUNTER 2021-04-08 19:00 | Emergency (ER) | payer OTHER, SELFPAY ==
--- NOTE | ~2021-04-08 | XR_ITS ---
EXAMINATION: XR KNEE, RIGHT CLINICAL INFORMATION: Twisted knee COMPARISON: None TECHNIQUE: Four views of the right knee. FINDINGS: Bones and soft tissues are normal aside from some mild narrowing of the medial compartment and a small medial femoral condyle osteophyte. No fracture or joint effusion. Alignment is anatomic. No abnormal soft tissue calcification. XR/XR knee RT 4V IMPRESSION: Minimal degenerative changes with some mild narrowing of the medial compartment as described above
[2021-04-08 19:18] VITALS: BP 122/93; BP 178/100; PULSE 105; PULSE 126; RESP 15; TEMP 36.1; O2SAT 100; BMI 19.1
--- NOTE | 2021-04-08 19:43 | ED_ITS ---
HPI - Extremity Injury (Lower) General Chief Complaint: Extremity Injury, Lower Stated Complaint: knee pain Time Seen by Provider: 04/08/21 19:41 Source: patient Mode of arrival: ambulatory Limitations: no limitations History of Present Illness complaint: knee injury Onset (ago): day(s) (3) Injury: Right: knee Type of Injury: other (twisting) Place: home Severity: severe Relieving factors: nothing Exacerbating factors: weight bearing, movement and palpation Context: walking Associated symptoms: snap/pop sensation and swelling Other symptoms: none Treatments prior to arrival: cold therapy and other (on chronic pain medications which are not helping) Related Data Home Medications Medication Instructions Recorded Confirmed amlodipine 10 mg PO DAILY 07/07/20 04/08/21 aspirin 81 mg PO DAILY 07/07/20 04/08/21 bupropion HCl 300 mg PO DAILY 07/07/20 04/08/21 chlorthalidone 25 mg PO DAILY 07/07/20 04/08/21 cholecalciferol (vitamin D3) 4,000 unit PO DAILY 07/07/20 04/08/21 [Vitamin D3] finasteride 5 mg PO DAILY 07/07/20 04/08/21 gabapentin 600 mg PO DAILY@1200 07/07/20 04/08/21 insulin aspart U-100 [Novolog See Rx Instructions .ROUTE .COMPLEX 07/07/20 04/08/21 Flexpen U-100 Insulin] lamotrigine 200 mg PO BEDTIME 07/07/20 04/08/21 lisinopril 5 mg PO DAILY 07/07/20 04/08/21 loratadine 10 mg PO DAILY 07/07/20 04/08/21 lorazepam 1 tab PO TID PRN 07/07/20 04/08/21 nabumetone 500 tab PO BID 07/07/20 04/08/21 nystatin [Nyamyc] 1 applic TOPICAL QID 07/07/20 04/08/21 oxybutynin chloride 10 mg PO DAILY 07/07/20 04/08/21 oxycodone [OxyContin] 20 mg PO BID 07/07/20 04/08/21 propranolol 120 mg PO DAILY 07/07/20 04/08/21 rosuvastatin 40 mg PO BEDTIME 07/07/20 04/08/21 zolpidem 10 mg PO BEDTIME PRN 07/07/20 04/08/21 fluticasone propionate [Flovent 2 puff INHALATION BID 04/08/21 04/08/21 HFA] gabapentin 900 mg PO BID 04/08/21 04/08/21 hydromorphone 1 tab PO Q6H PRN 04/08/21 04/08/21 insulin degludec [Tresiba 64 unit SUBCUT DAILY 04/08/21 04/08/21 FlexTouch U-100] semaglutide [Rybelsus] 1 tab PO DAILY 04/08/21 04/08/21 Allergies Allergy/AdvReac Type Severity Reaction Status Date / Time metformin Allergy Severe Unknown Verified 07/07/20 08:27 acetaminophen [From TYLENOL] Allergy Unknown HIVES Verified 07/07/20 08:27 clonazepam [From KLONOPIN] Allergy Unknown HIVES Verified 07/07/20 08:27 Review of Systems Review of Systems: Constitutional : No Fever, No Chills ENT/Mouth : No Ear Pain, No Hoarseness, No sore throat Eyes: No Eye Pain, No Swelling, No Redness, No Foreign Body Cardiovascular : No Chest Pain, No SOB Respiratory : No Cough, No Dyspnea Gastrointestinal : No Nausea, No Vomiting, No Diarrhea, No abdominal Pain Genitourinary : No Dysuria, No Hematuria Musculoskeletal : positive joint pain, No Myalgias, pos Joint Swelling Skin : No Skin lacerations, No rash Neuro : No Weakness, No Numbness, No Loss of Consciousness, No Dizziness, No Headache Psych : No Anxiety/Panic, No Depression Heme/Lymph: no easy bruising, no Lymphadenopathy Endocrine : No Polyuria, No Polydipsia All other systems reviewed and are negative [facility] Past Medical History Attestation statement: The following information was validated with the patient. Medical History Agoraphobia Anxiety Asthma Borderline personality disorder Chronic back pain Depression Diabetes Obesity Surgical History H/O oophorectomy History of appendectomy Social History Social History (Updated 04/08/21 @ 19:54 by Erika Nina DO) Patient Tobacco Use Status: Tobacco use Unknown Use of substances other than those prescribed or required for medical reasons: No Advance Directives: No Advance Directives Information Provided: No Patient : No Physical Exam Vital Signs: Vital Signs: Last Vital Signs Temp 96.9 F 04/08/21 19:18 Pulse 126 H 04/08/21 19:18 Resp 15 04/08/21 19:18 BP 122/93 H 04/08/21 19:18 Pulse Ox 100 04/08/21 19:18 Body Mass Index 19.1 Appearance: Alert. Oriented X3. No acute distress. Eyes: Pupils equal, round and reactive to light. ENT: Pharynx normal. Neck: Normal inspection. Neck supple. CVS: Normal heart rate and rhythm. Pulses normal. Respiratory: No respiratory distress. Breath sounds normal. Abdomen: Soft and nontender. Skin: Skin warm and dry. Normal skin color. Normal skin turgor. Extremities: No lower extremity edema. R knee ttp along medial aspect, mild joint effusion no obvious defects of quadricep/patella tendon but she will not let me range her knee she is distal NV intact Neuro: Oriented X 3. No motor deficit. No sensory deficit. Course Course Course Narrative: Patient placed in physician observation at 916pm . The indication for observation is that the patient needs more time to see PT and CM for STR placement. At this time the patient is well developed well nourished, lungs clear, CV RRR, abd nontender, neuro is intact. NV intact, in knee immobilizer bounding DP pulse doubt pop fossa artery injury this was 3 days ago so there would be some signs of limb ischemia as well signed out pending PT/CM input Procedures Orthopedic Splinting/Casting Injury #1: Side: right Lower Extremity Injury Location: knee Lower Extremity Immobilizer: knee immobilizer MDM - Extremity Injury (Lower) MDM Narrative Medical decision making narrative: 50 yo female with chronic back pain on oxycontin/oxycodone, HTN here with R knee pain after a twisting injury she is NV intact states she cannot manage at home will need PT/CM for STR, the patient denies any other injuries, she does not allow a full exam no obvious tendon injury but the exam is very limited and her body habitus makes it difficult. Lab Data Labs: Lab Results 04/08/21 Range/Units 20:14 COVID-19 ([facility]AN) Negative (Negative) COVID-19 Clin Com See Note Discharge Plan Discharge Clinical Impression: Knee sprain Qualifiers: Encounter type: initial encounter Involved ligament of knee: unspecified ligament Laterality: right Qualified Code(s): S83.91XA - Sprain of unspecified site of right knee, initial encounter Prescriptions: No [facility] nystatin [Nyamyc] 100,000 unit/gram powder 1 applic topical QID RF: 0 insulin aspart U-100 [Novolog Flexpen U-100 Insulin] 100 unit/mL (3 mL) insulin pen See Rx Instructions unit .ROUTE .COMPLEX RF: 0 oxycodone [OxyContin] 20 mg tablet,oral only,ext.rel.12 hr 20 mg PO BID RF: 0 lamotrigine 200 mg tablet 200 mg PO BEDTIME RF: 0 oxybutynin chloride 10 mg tablet extended release 24hr 10 mg PO DAILY RF: 0 chlorthalidone 25 mg tablet 25 mg PO DAILY RF: 0 aspirin 81 mg tablet,delayed release (DR/EC) 81 mg PO DAILY RF: 0 lorazepam 2 mg tablet 1 tab PO TID PRN (Reason: Anxiety) RF: 0 amlodipine 10 mg tablet 10 mg PO DAILY RF: 0 lisinopril 5 mg tablet 5 mg PO DAILY RF: 0 propranolol 120 mg capsule,extended release 24 hr 120 mg PO DAILY RF: 0 zolpidem 10 mg tablet 10 mg PO BEDTIME PRN (Reason: Insomnia) RF: 0 finasteride 5 mg tablet 5 mg PO DAILY RF: 0 loratadine 10 mg tablet 10 mg PO DAILY RF: 0 nabumetone 500 mg tablet 500 tab PO BID RF: 0 rosuvastatin 40 mg tablet 40 mg PO BEDTIME RF: 0 bupropion HCl 300 mg tablet extended release 24 hr 300 mg PO DAILY RF: 0 cholecalciferol (vitamin D3) [Vitamin D3] 50 mcg (2,000 unit) capsule 4,000 unit PO DAILY RF: 0 gabapentin 300 mg Capsule 600 mg PO DAILY@1200 RF: 0 gabapentin 300 mg capsule 900 mg PO BID RF: 0 Tresiba FlexTouch U-100 100 unit/mL (3 mL) insulin pen 64 unit subcut DAILY RF: 0 Rybelsus 7 mg tablet 1 tab PO DAILY RF: 0 Flovent HFA 110 mcg/actuation HFA aerosol inhaler 2 puff inhalation BID RF: 0 hydromorphone 4 mg tablet 1 tab PO Q6H PRN (Reason: Pain) RF: 0
[2021-04-08] MEDS: HYDROmorphone HCl 2 MG/ML VIAL IM (20:24)
[2021-04-08 20:42] LABS: COVID-19 Test Negative (Negative)
--- NOTE | 2021-04-08 20:49 | PHA.MEDREC ---
Pharmacy Consult ? Medication Reconciliation Pharmacy has completed the medication reconciliation.
--- NOTE | 2021-04-08 21:26 | MHC.CM.ED ---
CM met with patient who was very teary, stating she cannot go home, she cannot walk . Pt is A&Ox3. Pt states she twisted her R knee a few days ago, and despite ice and rest, it's gotten to the point that she cannot walk. Pt lives with S.O and 2 grown sons. Pt has [employer] insurance and has [employer] services through [employer]. Her son, Ivan Elkins ([phone]) is her SAILING INSTRUCTOR. HCP reviewed , completed and signed per protocol. HCP is Ivan Elkins. HCP uploaded into [employer]. Pt uses a cane, DM supplies and has had several shower chairs that pt states don't work. Pt tells CM that she cannot get around in her apartment, as she cannot bear weight on her right leg. Pt states she lives on 3rd floor and cannot negotiate the stairs. Pt states she cannot go home and will need rehab. PT evaluation ordered. Pt states she will not go to any [facility] facility. Pt is willing to go to [facility]. Referral placed. D/C plan pending PT recommendations.CM to follow for d/c needs.
[2021-04-08] MEDS: Gabapentin 300 MG CAPSULE 900 MG PO (22:27)
[2021-04-08] MEDS: oxyCODONE HCl ER 10 MG TAB.ER.12H 20 MG PO (22:27)
[2021-04-08] MEDS: Atorvastatin Calcium 80 MG TABLET PO (22:27)
[2021-04-08] MEDS: lamoTRIgine 100 MG TABLET 200 MG PO (22:27)
[2021-04-08] MEDS: LORazepam 1 MG TABLET 2 MG PO (23:53)
[2021-04-09] VITALS (10 sets, daily range): BP systolic 140–158; BP diastolic 71–84; PULSE 86–101; RESP 18–24; TEMP 36.7–36.8; O2SAT 93–97
[2021-04-09] MEDS: Zolpidem Tartrate 5 MG TABLET PO (02:35)
--- NOTE | 2021-04-09 04:07 | PC.NURSE ---
Pt requesting to use the commode, assisted up and onto the commode, pt is a strong 2 assist due to pain and knee immobilizer. Pt assisted back into bed, unable to find a POC. Pt reporting increased pain, requesting to speak with the doctor regarding pain management. aware.
--- NOTE | 2021-04-09 04:16 | PC.NURSE ---
Pt medicated for pain with Gabapentin 900 mg, Oxycodone 20 mg @ 2227. Pt medicated with Ativan 2 mg @ 2353. Dilaudid 4 mg PO @ 0053. Ambien 5 mg @ 0235. Pt continues reporting no relief of pain. aware that pt is requesting to speak with her.
--- NOTE | 2021-04-09 05:42 | PC.NURSE ---
electron microscopist at bedside discussing pts continuous requests for pain medication. aware.
[2021-04-09] MEDS: LORazepam 1 MG TABLET 2 MG PO (06:31)
--- NOTE | 2021-04-09 06:41 | PC.NURSE ---
Pt medicated for 10/10 pain per NOV. Pt resting in bed, aware of plan for PT eval.
[2021-04-09 07:37] LABS: Glucose, Whole Blood 289 mg/dL (60-115)
--- NOTE | 2021-04-09 08:25 | PC.NURSE ---
pharmacy has been called for missing medications, pt wishes to take all meds at once- will hold off giving other meds until missing medications have arrived
[2021-04-09] MEDS: buPROPion HCl XL 300 MG TAB.ER.24H PO (09:02)
[2021-04-09] MEDS: oxyCODONE HCl ER 10 MG TAB.ER.12H 20 MG PO (09:02)
[2021-04-09] MEDS: Aspirin Enteric Coated 81 MG TABLET.DR PO (09:03)
[2021-04-09] MEDS: amLODIPine Besylate 10 MG TABLET PO (09:03)
[2021-04-09] MEDS: Propranolol HCL LA 60 MG CAP.SA.24H 120 MG PO (09:03)
[2021-04-09] MEDS: hydroCHLOROthiazide 25 MG TABLET PO (09:03)
[2021-04-09] MEDS: lisinopriL 5 MG TABLET PO (09:04)
[2021-04-09] MEDS: Cholecalciferol (Vitamin D3) 25 MCG TABLET 100 MCG PO (09:04)
[2021-04-09] MEDS: Loratadine 10 MG TABLET PO (09:04)
[2021-04-09] MEDS: Gabapentin 300 MG CAPSULE 900 MG PO (09:04)
[2021-04-09] MEDS: Insulin Glargine,Hum.rec.anlog 100 UNIT/ML 10 ML VIAL 45 UNIT SUBCUT (09:05)
[2021-04-09] MEDS: Insulin Lispro 100 UNIT/ML 3 ML VIAL SUBCUT ×2 (09:05→14:02)
--- NOTE | 2021-04-09 10:24 | PC.NURSE ---
patient was medicated per order, vss, will continue to monitor.
--- NOTE | 2021-04-09 11:58 | MHC.CM.ED ---
Patient remains in ER. Physical therapy eval completed. Short term rehab is recommended. Clinical updates sent to [facility] via [employer]. Continue to monitor for d/c needs.
[2021-04-09] MEDS: Gabapentin 300 MG CAPSULE 600 MG PO (12:24)
--- NOTE | 2021-04-09 12:28 | PC.NURSE ---
patient c/o pain, pt medicated with prn as well as gabapentin that was ordered, vss, will continue to monitor.
[2021-04-09 12:55] LABS: Glucose, Whole Blood 204 mg/dL (60-115)
--- NOTE | 2021-04-09 14:14 | PC.NURSE ---
patient ate lunch late, medicated with insulin per order, vss, pt oob to bedside commode, pt requesting lidocaine patches, will continue to monitor.
--- NOTE | 2021-04-09 14:37 | MHC.CM.ED ---
[facility] is unable to offer a bed at this time. Met with patient in regards to discharge planning. List of facilities provided from [facility]. Patient has been to [facility]. She does not want to return there. Patient also wants to stay local because I need my stuff and they won't drive far for me. Patient unable to verbalize who they are. Patient unable to decide at this time if she wants to go to short term rehab or return home. Patient will notify case management when she has made a decision. Continue to monitor for d/c needs.
[2021-04-09] MEDS: Lidocaine 4 % Patch ADH..PATCH 2 PATCH TRANSDERMA (14:53)
--- NOTE | 2021-04-09 15:19 | MHC.CM.ED ---
Patient has decided to go home with services. Patient will need BLS transport. [facility] booked. Med nec with chart. Patient, Rita RN, and Nadia AGUILAR aware. Patient is active with [facility]. Spoke with Sandie at [facility]. [facility] will provide nursing and physical therapy. Continue to monitor for d/c needs.
== END 2021-04-09 17:30 | disposition home or self-care (01) ==
LOC: HO.ED 19:43
PROVIDERS: Emergency Provider Emergency Medicine
DX: S83.91XA Sprain of unspecified site of right knee, initial encounter (principal); X50.1XXA Overexertion from prolonged static or awkward postures, initial encounter; E11.9 Type 2 diabetes mellitus without complications; E66.9 Obesity, unspecified; F41.9 Anxiety disorder, unspecified; Y93.9 Activity, unspecified; Y92.9 Unspecified place or not applicable; Y99.9 Unspecified external cause status; Z20.822 Contact with and (suspected) exposure to COVID-19; Z79.4 Long term (current) use of insulin; Z79.82 Long term (current) use of aspirin; Z79.899 Other long term (current) drug therapy
CPT/HCPCS: 36415; 73564; 82947; 87635; 96372; 97162; 99285; J1170

== ENCOUNTER 2021-12-30 16:46 | Inpatient (IN) | payer OTHER, SELFPAY ==
[2021-12-30] VITALS (8 sets, daily range): BP systolic 187–192; BP diastolic 84–91; PULSE 81–99; RESP 14–18; TEMP 37.1–37.3; O2SAT 96–99; BMI 42.6
--- NOTE | ~2021-12-30 | CT_ITS ---
EXAMINATION: CT THORACIC SPINE WITHOUT CONTRAST CLINICAL INFORMATION: Pain COMPARISON: CXR from 01/29/2020. Abdomen CT from 12/30/2021. TECHNIQUE: Noncontrast multidetector CT imaging examination of the thoracic spine is performed. Axial images and multiplanar reformatted images are reviewed. The spine is imaged from the level of C7-L2. This CT examination was performed using dose optimization techniques as appropriate, variously including the following: *Automated exposure control *Adjustment of mA and/or kV according to patient size (this includes techniques or standardized protocols for targeted exams where dose is matched to indication/reason for exam; i.e. extremities or head) *Use of iterative reconstruction technique DLP: 1237 mGy-cm FINDINGS: THORACIC SPINE: No acute abnormalities. The thoracic vertebra have normal height and alignment. No fractures in anterior or posterior elements. Small osteophytes and mild narrowing of joint spaces throughout the thoracic spine. Mild vacuum disc phenomenon at T11-T12. No vertebral endplate erosion or paraspinal soft tissue swelling. No paraspinal soft tissue mass. No evidence of thoracic spinal canal stenosis or neural foraminal stenosis. OTHER: Lungs and mediastinum are partially included in the [id number] on this examination focused on the thoracic spine. The heart size is normal. No pericardial effusion. There are atherosclerotic calcifications of coronary arteries and thoracic aorta without aortic aneurysm. 1.8 cm simple cyst of the left kidney. No renal imaging follow-up recommended. CT/CT thoracic spine wo con IMPRESSION: Mild spondylosis of the thoracic spine. No significant imaging findings. No evidence of fracture, subluxation or spinal canal stenosis.
--- NOTE | ~2021-12-30 | CT_ITS ---
EXAMINATION: CT ABDOMEN AND PELVIS WITH CONTRAST CLINICAL INFORMATION: 51-year-old female with diffuse abdominal pain COMPARISON: 03/29/2021 TECHNIQUE: Multidetector volumetric images were obtained from the superior aspect of the liver through the pubic symphysis following administration 100 mL of Omnipaque 350 intravenous contrast. Sagittal and coronal reformatted images were obtained on the technologist's workstation. Oral contrast: No This CT examination was performed using dose optimization techniques as appropriate, variously including the following: *Automated exposure control *Adjustment of mA and/or kV according to patient size (this includes techniques or standardized protocols for targeted exams where dose is matched to indication/reason for exam; i.e. extremities or head) *Use of iterative reconstruction technique DLP: 1270 mGy-cm FINDINGS: LUNG BASES: The visualized lung bases are unremarkable. LIVER, GALLBLADDER, AND BILIARY TREE: The liver is normal in size, shape, and attenuation. No focal hepatic lesion or biliary ductal dilatation is present. The gallbladder is unremarkable with no evidence of radiopaque gallstones, gallbladder wall thickening, or obvious pericholecystic inflammatory changes. PANCREAS: Unremarkable. SPLEEN: Unremarkable. There is 2 cm splenule ADRENAL GLANDS: Unremarkable. KIDNEYS AND URETERS: There is 1.3 cm cyst in the upper pole left kidney. Right kidney is unremarkable. Evaluation of lower pole of both kidneys limited due to motion there is no hydroureteronephrosis or masses. BLADDER: Urinary bladder is decompressed via Julien catheter. GASTROINTESTINAL TRACT: Examination limited due to motion The small and large bowel are unremarkable. The appendix is unremarkable. ABDOMINAL WALL: There is small fat-containing umbilical hernia. LYMPH NODES: Normal. VASCULAR: Unremarkable. PELVIC VISCERA: Unremarkable. OSSEOUS STRUCTURES: Unremarkable. CT/CT abdomen pelvis w con IMPRESSION: No significant abnormality. Fleischner guidelines were followed.
--- NOTE | 2021-12-30 18:06 | ECG_ITS ---
Test Reason : ABD PAIN Blood Pressure : / mmHG Vent. Rate : 089 BPM Atrial Rate : 089 BPM P-R Int : 152 ms QRS Dur : 082 ms QT Int : 404 ms P-R-T Axes : 059 031 033 degrees QTc Int : 491 ms Normal sinus rhythm Prolonged QT Abnormal ECG When compared with ECG of 07-JUL-2020 08:55, No significant change was found Referred By: Maribeth Whitehead Electronically Signed By:Kishan Rubi
--- NOTE | 2021-12-30 18:13 | ED_ITS ---
HPI - Abdominal Pain General Chief Complaint: Abdominal Pain Stated Complaint: Abdominal pain/Headache Time Seen by Provider: 12/30/21 17:57 Source: patient Mode of arrival: ambulatory Limitations: no limitations History of Present Illness HPI narrative: Patient comes to the emergency room complaining diffuse abdominal pain. Patient states she was discharged from [facility], patient states she was d iagnosed with sepsis, was on antibiotics for several days, discharged home. Today, patient states she had a fever, worsening abdominal pain, came to the hospital complaining of abdominal pain. When patient was in the waiting room, patient was sitting and slid forward and landed on the ground. Patient did not hit her head or lost consciousness, patient on blood thinners. Patient states that her abdominal pain is all over, but worse in the left lower quadrant. Related Data Home Medications Medication Instructions Recorded Confirmed amlodipine 10 mg tablet 10 mg PO DAILY 07/07/20 12/30/21 aspirin 81 mg tablet,delayed 81 mg PO DAILY 07/07/20 12/30/21 release bupropion HCl 300 mg 24 hr tablet, 300 mg PO DAILY 07/07/20 12/30/21 extended release chlorthalidone 25 mg tablet 25 mg PO DAILY 07/07/20 12/30/21 finasteride 5 mg tablet 5 mg PO DAILY 07/07/20 12/30/21 insulin aspart U-100 100 unit/mL See Rx Instructions .ROUTE .COMPLEX 07/07/20 12/30/21 (3 mL) subcutaneous pen (Novolog Flexpen U-100 Insulin aspart) lisinopril 5 mg tablet 5 mg PO DAILY 07/07/20 12/30/21 loratadine 10 mg tablet 10 mg PO DAILY 07/07/20 12/30/21 lorazepam 2 mg tablet 1 tab PO TID PRN 07/07/20 12/30/21 nabumetone 500 mg tablet 500 tab PO BID 07/07/20 12/30/21 nystatin 100,000 unit/gram topical 1 applic TOPICAL QID 07/07/20 12/30/21 powder ([facility]) oxybutynin chloride 10 mg 10 mg PO DAILY 07/07/20 12/30/21 tablet,extended release 24 hr propranolol 120 mg capsule,24 120 mg PO DAILY 07/07/20 12/30/21 hr,extended release rosuvastatin 40 mg tablet 40 mg PO BEDTIME 07/07/20 12/30/21 zolpidem 10 mg tablet 10 mg PO BEDTIME PRN 07/07/20 12/30/21 fluticasone propionate 110 2 puff INHALATION BID 04/08/21 12/30/21 mcg/actuation HFA aerosol inhaler (Flovent HFA) gabapentin 300 mg capsule 900 mg PO TID 04/08/21 12/30/21 semaglutide 7 mg tablet (Rybelsus) 1 tab PO DAILY 04/08/21 12/30/21 Lactobacillus rhamnosus GG 15 2 cap PO DAILY 12/30/21 12/30/21 billion cell sprinkle capsule (Culturelle) doxycycline hyclate 100 mg capsule 1 cap PO Q12H 12/30/21 12/30/21 ergocalciferol (vitamin D2) 1,250 50,000 unit PO QWEEK 12/30/21 12/30/21 mcg (50,000 unit) capsule (Vitamin D2) fluticasone propionate 50 1 spray INTRANASAL DAILY 12/30/21 12/30/21 mcg/actuation nasal spray,suspension insulin degludec 100 unit/mL (3 80 unit SUBCUT BEDTIME 12/30/21 12/30/21 mL) subcutaneous pen (Tresiba FlexTouch U-100 insulin) lamotrigine 25 mg tablet 200 mg PO BEDTIME 12/30/21 12/30/21 omeprazole 20 mg capsule,delayed 1 cap PO DAILY 12/30/21 12/30/21 release oxycodone 20 mg tablet 20 mg PO Q4H PRN 12/30/21 12/30/21 oxycodone 30 mg tablet,crush 1 tab PO BID 12/30/21 12/30/21 resistant,extended release 12 hr (OxyContin) simethicone 125 mg chewable tablet mg PO BID PRN 12/30/21 Allergies Allergy/AdvReac Type Severity Reaction Status Date / Time metformin Allergy Severe Unknown Verified 07/07/20 08:27 acetaminophen [From TYLENOL] Allergy Unknown HIVES Verified 07/07/20 08:27 clonazepam [From KLONOPIN] Allergy Unknown HIVES Verified 07/07/20 08:27 Review of Systems Review of Systems Constitutional : No Weight loss, No Fever, No Chills, No Night Sweats, No Fatigue, No Malaise ENT/Mouth : No Hearing loss, No Ear Pain, No Nasal Congestion, No Sinus Pain, No Hoarseness, No sore throat, No Rhinorrhea, No Swallowing Difficulty Eyes: No Eye Pain, No Swelling, No Redness, No Foreign Body, No Discharge, No Vision Changes Cardiovascular : No Chest Pain, No SOB, No Dyspnea on Exertion, No Orthopnea, No Edema, No Palpitations Respiratory : No Cough, No Sputum, No Wheezing, No Smoke Exposure, No Dyspnea Gastrointestinal : No Nausea, No Vomiting, No Diarrhea, No Constipation, complaining of severe abdominal pain, moderate rectal tone, no saddle anesthesia Genitourinary : no irregular bleeding, No Dysuria, No Urinary Frequency, No Hematuria, No Urinary Incontinence, No Urgency, No Flank Pain, No Urinary Flow Changes, No Hesitancy Musculoskeletal : No joint pain, No Myalgias, No Joint Swelling Skin : No Skin Lesions, No rash Neuro : No Weakness, No Numbness, No Paresthesias, No Loss of Consciousness, No Dizziness, No Headache Psych : No Anxiety/Panic, No Depression, No SI/HI/AH/VH, No Social Issues, Heme/Lymph: No Bruising, No Bleeding,No Lymphadenopathy Endocrine : No Polyuria, No Polydipsia, No Temperature Intolerance PMFSH Past Medical History Medical History (Updated 12/30/21 @ 23:18 by Maribeth Whitehead MD) Agoraphobia Anxiety Asthma Borderline personality disorder Chronic back pain Chronic kidney disease Depression Diabetes Hypertension Obesity Surgical History H/O oophorectomy History of appendectomy Social History Social History (Updated 04/08/21 @ 19:54 by Erika Nina DO) Patient Tobacco Use Status: Tobacco use Unknown Advance Directives: No Advance Directives Information Provided: No Physical Exam ED Vital Signs: Vital Signs - 24 hr 12/30/21 18:12 12/30/21 20:20 12/30/21 21:35 Temperature 99.2 F Pulse Rate 95 99 96 Respiratory Rate 18 18 Blood Pressure 189/84 H Pulse Oximetry 97 98 98 12/30/21 22:00 12/30/21 22:30 12/30/21 23:10 Temperature 98.8 F Pulse Rate 85 81 Respiratory Rate 18 18 16 Blood Pressure 187/90 H 192/91 H Pulse Oximetry 98 98 BMI result Body Mass Index 42.6 Const Other: Appearance: Alert. Oriented X3. No acute distress. Eyes: Pupils equal, round and reactive to light. ENT: Pharynx normal. Neck: Normal inspection. Neck supple. No lymph nodes noted. No crepitus CVS: Normal heart rate and rhythm. Pulses normal. Normal S1 and S2 Respiratory: No respiratory distress. Breath sounds normal. No Wheezing. No rales Abdomen: Soft and nontender. No rigidity. No distention. Patient has moderate rectal tone, no paresthesias Skin: Skin warm and dry. Normal skin color. Normal skin turgor. Extremities: No lower extremity edema. No Lacerations. No Rash, patient has present patellar reflexes and plantar reflexes Neuro: Oriented X 3. No motor deficit. No sensory deficit. Moving all extremities. No slurred speech. CN 2 through 12 grossly intact Psych: calm, cooperative, normal affect Course Course Course Narrative: The security cameras were reviewed, patient was sitting, she slid forward slowly, put her knees on the ground, then she was able to lower her hands on the floor, then lower herself to the ground. Security officers reviewed the video as well, seems that the patient lower herself to the ground on purpose. Patient's records have been requested from [facility]. All of the labs and imaging pending 18:57 I reviewed records from [facility]. Patient has been seen multiple times at [facility] for acute on chronic abdominal pain. Recently discharged yesterday. From the discharge note: chronic abdominal pain without any source of infection and unremarkable abdominal pain. No evidence of sepsis blood cultures were negative, mild leukocytosis. Patient has narcotic seeking behavior and asks for IV pain medication. At home patient takes OxyContin 30 mg every 12 hours and intermediate release oxycodone 20 mg every 4 hours I discussed the labs and imaging with the patient, the only acute finding is hypercalcemia. At this time, etiology is unclear. Patient was given 2 L of fluids and calcitonin, also, patient given ketorolac and morphine. Also, patient stated that she cannot urinate. Bladder scan showed 500+ cc of urine. Julien catheter has been inserted, draining. After the Julien catheter was inserted, the patient was screaming to take it out but eventually she was able to tolerate it. On arrival, patient did not mention anything about back pain even when she was asked. However, now patient states that she does have lower back pain. We will go ahead and get a CT scan of the thoracic and lumbar spine. I added an ESR and CRP, pending. From the abdominal CT scan, the osseous structures are unremarkable. Patient denies radiculopathy, no saddle anesthesia. It is concerning the patient had decreased rectal tone. Patient's patellar and plantar reflexes are intact. I was informed by the patient's nurse that the patient is extremely upset that she is not getting IV Dilaudid , patient already received morphine. Patient states that she was getting it every 3 hours at [facility] and would like the same. Also, I was informed that the patient's nurse that the patient was stating that because we are not treating her pain with Dilaudid, if we discharge her, she would go home, take all of her pain medications and kill herself and come to the emergency room in a body bag. Patient is on a Section 12. I discussed the patient with [facility] attending in the ED, we need an MRI to rule out cauda equina. They did accept the patient. However, the MRI at [facility] is approximately 6-7 hours. Patient is requesting to be chemically sedated for the MRI. Per [facility] attending, they cannot do conscious sedation at this time since they are short staffed. To do conscious sedation, patient will have to wait approximately 12 hours. Without sedation they could do it in the next 6-7 hours. I discussed this with the patient, patient states that she refuses to go to [facility] or any other hospitall. I discussed with the patient the risk s of delaying treatment for cauda equina. Patient aware. Patient still refusing to be transferred. Also, patient does have history of L3-L4 diskitis/osteomyelitis. Per records from [facility], they also did a CT scan on December 12 and there was no evidence of osteomyelitis. Patient states that the back pain started a few days ago, however as mentioned above, it has been documented that the pain started last month I discussed the above-mentioned with Dr. Felton, patient being admitted Patient was given Dilaudid, patient screaming for more pain medication. I discussed with the patient that we can give her her home dose. Patient states that she refuses to take p.o. because she is too much pain, only wants IV Dilaudid. MDM - Abdominal Pain Lab Data Result diagrams: 12/30/21 18:30 12/30/21 18:30 Labs: Lab Results 12/30/21 12/30/21 12/30/21 Range/Units 18:30 18:30 18:30 WBC 13.0 H (4.8-10.8) X10*3/uL RBC 4.94 (4.20-5.50) X10*6/uL Hgb 14.3 (12.0-16.0) g/dl Hct 42.3 (37.0-47.0) % MCV 85.6 (80.0-98.0) fL MCH 28.9 (27.0-33.0) pg MCHC 33.8 (31.0-35.0) g/dl RDW 13.6 (11.0-16.0) % Plt Count 431 H (160-400) X10*3/uL MPV 9.1 L (9.4-12.3) fL Immature Gran % (Auto) 0.6 H (0.0-0.4) % Neut % (Auto) 81.9 H (45-73) % Lymph % (Auto) 12.0 L (20-40) % [place] % (Auto) 4.2 (2-11) % Eos % (Auto) 0.9 (0-4) % Baso % (Auto) 0.4 (0-2) % Lymph # (Auto) 1.6 (1.2-4.9) X10*3/uL [place] # (Auto) 0.6 (0.1-1.2) X10*3/uL Eos # (Auto) 0.1 (0.0-0.4) X10*3/uL Baso # (Auto) 0.1 (0.0-0.2) X10*3/uL Abs Immat Gran (auto) 0.08 H (0.00-0.03) X10*3/uL Absolute Neuts (auto) 10.7 H (2.0-8.3) x10*3/uL Absolute Nucleated RBC 0.000 (0.0-0.012) X10*3/uL Nucleated RBC % (auto) 0.0 (0.0-0.2) /100WBC ESR (0-20) MM/HR Sodium 133 L (135-145) mmol/L Potassium 4.2 (3.3-5.1) mmol/L Chloride 92 L (96-108) mmol/L Carbon Dioxide 28 (22-29) mmol/L Anion Gap 17 (12-20) BUN 15 (9-16) mg/dL Creatinine 1.12 (0.5-1.4) mg/dL Estim Creat Clear Calc 83.6 Estimated GFR 51 Random Glucose 272 H (60-115) mg/dL Calcium 12.8 H* D (8.4-10.2) mg/dL Total Bilirubin 0.5 (0.0-1.0) mg/dL Direct Bilirubin 0.2 (0.0-0.5) mg/dL AST 12 (5-31) U/L ALT 27 (0-31) U/L Alkaline Phosphatase 208 H D (39-117) U/L Troponin I High Sens 6.6 (<3.5-17.0) ng/L C-Reactive Protein 2.62 H (< or = 0.50) mg/dL Total Protein 8.2 H (6.5-8.0) g/dL Albumin 4.6 (3.5-5.0) g/dL Urine Color Urine Appearance Urine pH (5.0-8.0) Ur Specific [place] (1.005-1.025) Urine Protein (NEG-TRACE) MG/DL Urine Glucose (UA) (NEG) MG/DL Urine Ketones (NEG) MG/DL Urine Blood (NEG) Urine Nitrite (NEG) Ur Leukocyte Esterase (NEG) Urine RBC (0) /HPF Urine WBC (0-4) /HPF Ur Squamous Epith Cells /LPF Urine Bacteria /LPF Urine Mucus /LPF COVID-19 (ETHAN) (Negative) COVID-19 Clin Com 12/30/21 12/30/21 12/30/21 Range/Units 18:30 18:30 20:05 WBC (4.8-10.8) X10*3/uL RBC (4.20-5.50) X10*6/uL Hgb (12.0-16.0) g/dl Hct (37.0-47.0) % MCV (80.0-98.0) fL MCH (27.0-33.0) pg MCHC (31.0-35.0) g/dl RDW (11.0-16.0) % Plt Count (160-400) X10*3/uL MPV (9.4-12.3) fL Immature Gran % (Auto) (0.0-0.4) % Neut % (Auto) (45-73) % Lymph % (Auto) (20-40) % [place] % (Auto) (2-11) % Eos % (Auto) (0-4) % Baso % (Auto) (0-2) % Lymph # (Auto) (1.2-4.9) X10*3/uL [place] # (Auto) (0.1-1.2) X10*3/uL Eos # (Auto) (0.0-0.4) X10*3/uL Baso # (Auto) (0.0-0.2) X10*3/uL Abs Immat Gran (auto) (0.00-0.03) X10*3/uL Absolute Neuts (auto) (2.0-8.3) x10*3/uL Absolute Nucleated RBC (0.0-0.012) X10*3/uL Nucleated RBC % (auto) (0.0-0.2) /100WBC ESR 67 H (0-20) MM/HR Sodium (135-145) mmol/L Potassium (3.3-5.1) mmol/L Chloride (96-108) mmol/L Carbon Dioxide (22-29) mmol/L Anion Gap (12-20) BUN (9-16) mg/dL Creatinine (0.5-1.4) mg/dL Estim Creat Clear Calc Estimated GFR Random Glucose (60-115) mg/dL Calcium (8.4-10.2) mg/dL Total Bilirubin (0.0-1.0) mg/dL Direct Bilirubin (0.0-0.5) mg/dL AST (5-31) U/L ALT (0-31) U/L Alkaline Phosphatase (39-117) U/L Troponin I High Sens (<3.5-17.0) ng/L C-Reactive Protein (< or = 0.50) mg/dL Total Protein (6.5-8.0) g/dL Albumin (3.5-5.0) g/dL Urine Color YELLOW Urine Appearance CLEAR Urine pH 8.0 (5.0-8.0) Ur Specific [place] 1.025 (1.005-1.025) Urine Protein 2+ H (NEG-TRACE) MG/DL Urine Glucose (UA) 250 H (NEG) MG/DL Urine Ketones NEG (NEG) MG/DL Urine Blood NEG (NEG) Urine Nitrite NEG (NEG) Ur Leukocyte Esterase NEG (NEG) Urine RBC 0-2 (0) /HPF Urine WBC 0-2 (0-4) /HPF Ur Squamous Epith Cells TRACE /LPF Urine Bacteria NONE /LPF Urine Mucus TRACE /LPF COVID-19 (ETHAN) Negative (Negative) COVID-19 Clin Com See Note Imaging Data CT scan - abdomen: Radiologist's impression: FINDINGS: LUNG BASES: The visualized lung bases are unremarkable.? LIVER, GALLBLADDER, AND BILIARY TREE: The liver is normal in size, shape, and attenuation. No focal hepatic lesion or biliary ductal dilatation is present. The gallbladder is unremarkable with no evidence of radiopaque gallstones, gallbladder wall thickening, or obvious pericholecystic inflammatory changes.? PANCREAS: Unremarkable.? SPLEEN: Unremarkable. There is 2 cm splenule ADRENAL GLANDS: Unremarkable.? KIDNEYS AND URETERS: There is 1.3 cm cyst in the upper pole left kidney. Right kidney is unremarkable. Evaluation of lower pole of both kidneys limited due to motion there is no hydroureteronephrosis or masses.? BLADDER: Urinary bladder is decompressed via Julien catheter.? GASTROINTESTINAL TRACT: Examination limited due to motion The small and large bowel are unremarkable. The appendix is unremarkable.? ABDOMINAL WALL: There is small fat-containing umbilical hernia.? LYMPH NODES: Normal. VASCULAR: Unremarkable. PELVIC VISCERA: Unremarkable.? OSSEOUS STRUCTURES: Unremarkable.? CT/CT abdomen pelvis w con IMPRESSION: No significant abnormality. Critical Care Time Critical Care Time Critical Care Time: Yes Total Critical Care Time: 60 Attestation: I have personally provided critical care time. Time includes review of lab data, radiology results, discussion with consultants, and monitoring for potential decompensation. Intervention performed as documented. Discharge Plan Discharge Clinical Impression: Abdominal pain, Lower back pain, Urinary incontinence, Hypercalcemia Patient Disposition: Admitted As Inpatient
[2021-12-30] MEDS: 0.9 % Sodium Chloride 1,000 ML 999 ML IVCONT ×2 (18:34→21:46)
[2021-12-30 18:35] LABS: MANUAL DIFF FLAG NO
[2021-12-30 18:37] LABS: Basophils Absolute Auto 0.1 X10*3/uL (0.0-0.2); Basophils Percent Auto 0.4 % (0-2); Eosinophils Absolute Auto 0.1 X10*3/uL (0.0-0.4); Eosinophils Percent Auto 0.9 % (0-4); Hematocrit 42.3 % (37.0-47.0); Hemoglobin 14.3 g/dl (12.0-16.0); Imm Gran Abs Auto 0.08 X10*3/uL (0.00-0.03); Imm Gran Pct Auto 0.6 % (0.0-0.4); Lymphocytes Absolute Auto 1.6 X10*3/uL (1.2-4.9); Mean Corpuscular HGB Conc 33.8 g/dl (31.0-35.0); Mean Corpuscular Hemoglobin 28.9 pg (27.0-33.0); Mean Corpuscular Volume 85.6 fL (80.0-98.0); Mean Platelet Volume 9.1 fL (9.4-12.3); Monocytes Absolute Auto 0.6 X10*3/uL (0.1-1.2); Monocytes Percent Auto 4.2 % (2-11); Neutrophils Absolute Auto 10.7 x10*3/uL (2.0-8.3); Neutrophils Percent Auto 81.9 % (45-73); Platelet Count 431 X10*3/uL (160-400); Red Blood Count 4.94 X10*6/uL (4.20-5.50); Red Cell Distribution Width 13.6 % (11.0-16.0)
[2021-12-30] MEDS: Morphine Sulfate 2 MG/ML CARTRIDGE IVPUSH (18:41)
[2021-12-30 18:52] LABS: COVID-19 Test Negative (Negative)
[2021-12-30 18:57] LABS: Alanine Aminotransferase 27 U/L (0-31); Albumin Level 4.6 g/dL (3.5-5.0); Alkaline Phosphatase 208 U/L (39-117); Anion Gap 17 (12-20); Aspartate Amino Transferase 12 U/L (5-31); Bilirubin Direct 0.2 mg/dL (0.0-0.5); Bilirubin Total 0.5 mg/dL (0.0-1.0); Blood Urea Nitrogen 15 mg/dL (9-16); Carbon Dioxide 28 mmol/L (22-29); Chloride 92 mmol/L (96-108); Creatinine Clr Calc Pharmacy 83.6; Estimated Glomerular Filt Rate 51; Glucose Random 272 mg/dL (60-115); Potassium 4.2 mmol/L (3.3-5.1); Sodium 133 mmol/L (135-145); Total Protein 8.2 g/dL (6.5-8.0)
[2021-12-30 18:58] LABS: Troponin-I High Sensitivity 6.6 ng/L (<3.5-17.0)
[2021-12-30 19:07] LABS: Calcium 12.8 mg/dL (8.4-10.2)
--- NOTE | 2021-12-30 19:20 | PC.NURSE ---
pt refusing ct until she gets more pain medication.. made aware
--- NOTE | 2021-12-30 19:30 | PC.NURSE ---
upon meeting pt at the start of shift she stated that she needed more pain medication and had to go to the BR. when the pt was told toradol was ordered for her she stated, seriously that does nothing, why would she order that pt reassured and eventually agreeable to toradol admin.
[2021-12-30] MEDS: Ketorolac Tromethamine 30 MG/ML VIAL IVPUSH (19:35)
--- NOTE | 2021-12-30 19:43 | PC.NURSE ---
pt crying aloud that she now has to pee immediatley. pt placed on bedpan by this RN and software support technician... pt unable to turn on her own to get on the bedpan, 2+ assist to get pt on bedpan, pt unable to void. pt crying stating that no one is helping her and that we are not treating her pain. pt reminded that she had just received pain medication, and that we are trying to help her go the BR. made aware who ordered a bladder scan.
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
[2021-12-30 20:20] LABS: Appearance Urine CLEAR; Color Urine YELLOW; Glucose Urine UA 250 MG/DL (NEG); Leukocyte Esterase Urine NEG (NEG); Nitrite Urine NEG (NEG); Specific Gravity - Urine 1.025 (1.005-1.025); UACC Culture Trigger NO; Urine Blood NEG (NEG); Urine Ketones NEG (NEG); Urine Protein 2+ MG/DL (NEG-TRACE)
[2021-12-30 20:30] LABS: Mucus Urine TRACE /LPF; RBC Urine 0-2 /HPF (0); Squamous Epithelial Cell Urine TRACE /LPF; WBC Urine 0-2 /HPF (0-4)
[2021-12-30] MEDS: iohexoL 350 MG/ML 100 ML INFUS..BTL IV (20:33)
--- NOTE | 2021-12-30 21:42 | PHA.MEDREC ---
Pharmacy Consult ? Medication Reconciliation Pharmacy has completed the medication reconciliation.
[2021-12-30 22:00] LABS: C Reactive Protein 2.62 mg/dL (< or = 0.50)
[2021-12-30 22:23] LABS: Erythrocyte Sedimentation Rate 67 MM/HR (0-20)
--- NOTE | 2021-12-30 22:39 | PC.NURSE ---
This RN made aware by environmental services technician that pt continues refusing EKG x 3. aware.
[2021-12-30] MEDS: HYDROmorphone HCl 1 MG/ML SYRINGE IVPUSH (23:08)
--- NOTE | 2021-12-30 23:31 | PC.NURSE ---
pt used facility phone to call family member, reports decreased pain after dilaudid admin
--- NOTE | 2021-12-30 23:51 | PM.IMHP ---
History of Present Illness Date of Service: 12/30/21 Chief Complaint: abd pain 51-year-old female with a past medical history of anxiety, depression, borderline personality disorder, chronic back pain, CKD, hypertension, hyperlipidemia, diabetes, obesity; history of diskitis/osteomyelitis of the spine; presented to the hospital today with a chief complaint of abdominal pain/nausea/vomiting/diarrhea. Patient reports that over the past 4-5 days she has been having abdominal pain assess nausea vomiting and diarrhea. Denies any blood in the vomitus or stool. Mentions vomitus is green in color. Also complains of subjective fevers. Mentions that in November she had spinal infection and face long course of antibiotics. On 12/27/2021 mentioned that she went to [facility] with the abdominal pain nausea and vomiting and was admitted there for couple days. And subsequently discharged home. Mentioned that during the same period of time she also had urinary discomfort/retention. Has Julien placed for couple days and subsequently removed at the time of the discharge on 12/29/2021; mentioned that she felt okay when she was discharged from the [facility] on 12/29/2021; the following day when she woke up she mentioned that she has abdominal pain back again associated nausea vomiting and diarrhea. Hence decided to come to the ER for further evaluation. Patient mentions that she has back pain usually in the lower back but now she feels slightly above her old pain. Denies any numbness tingling or focal weakness. Denies any falls or trauma. Mentioned that she has stool incontinence-attributes to few episodes of diarrhea. Also reports urinary retention/difficulty urinating for the past 4-5 days; Denies any chest pain or palpitations. Review of all other systems is negative except mentioned above ER course: Per ER team patient noted her diffuse abdominal tenderness; CT abdomen showed no acute intra-abdominal pathology; patient also complained of low back pain-had mildly decreased rectal tone; patient also had urinary retention with 500 cc of urine-placed Julien catheter; rest of the neurological exam was negative; Given above concerns-ER team tried to transfer patient to the [facility] for any stat MRI of the spine. But patient requested complete sedation prior to MRI, which per [facility] team can only happen at 11:00 o'clock in the morning on 12/31/21; Patient refused stat MRI without consult sedation at [facility]. Later patient wanted to be admitted to the [facility]; patient was explained about the possible delay in obtaining the MRI at [place] as no staff available overnight, patient still wanted to state the [facility]. Patient was given pain medication. Admitted for further management [facility] Medical History (Updated 02/25/22 @ 19:21 by Remi Felton MD) Abdominal pain Agoraphobia Anxiety Asthma Back pain Borderline personality disorder Chronic back pain Chronic kidney disease Depression Diabetes Hypercalcemia Hypertension Lower back pain Obesity Urinary incontinence Pertinent family history: Father has diabetes, hypertension Surgical History H/O oophorectomy History of appendectomy Social History Household Members: Caregiver Housing: Apartment Do you presently have visiting nurse or other home services: Yes Patient Tobacco Use Status: Tobacco use Unknown Tobacco use type: Cigarette Cigarette Packs Per Day: 1 Cigarettes Per Day: 20.0 Advance Directives: No Advance Directives Information Provided: No service: No Current occupational status: disabled Meds Allergies Allergy/AdvReac Type Severity Reaction Status Date / Time metformin Allergy Severe Unknown Verified 07/07/20 08:27 acetaminophen [From TYLENOL] Allergy Unknown HIVES Verified 07/07/20 08:27 clonazepam [From KLONOPIN] Allergy Unknown HIVES Verified 07/07/20 08:27 Active Medications: Current Medications Amlodipine Besylate (Amlodipine Besylate 10 Mg Tablet) 10 mg PO DAILY [facility]; Protocol Aspirin (Aspirin Enteric Coated 81 Mg Tablet.Dr) 81 mg PO DAILY [facility] Bupropion HCl (Bupropion Hcl Xl 300 Mg Tab.Er.24h) 300 mg PO DAILY [facility] Calcitonin [place] (Calcitonin,[place],Synth Nasal 3.7 Ml Bottle) 1 spray NOSTRILALT DAILY [facility] Docusate Sodium (Docusate Sodium 100 Mg Capsule) 100 mg PO DAILY PRN PRN Reason: Constipation Doxycycline Hyclate (Doxycycline Hyclate 100 Mg Tablet) 100 mg PO Q12H [facility] Ergocalciferol (Ergocalciferol (Vitamin D2) 1,250 Mcg Capsule) mcg PO QWEEK [facility] Finasteride (Finasteride 5 Mg Tablet) 5 mg PO DAILY [facility] Fluticasone Propionate (Fluticasone Propionate Nasal 16 Gm [place]) 1 spray NOSTRIL-B DAILY [facility] Gabapentin (Gabapentin 300 Mg Capsule) 900 mg PO TID [facility] Heparin Sodium (Porcine) (Heparin Sodium,Porcine 5,000 Unit/Ml Vial) 5,000 unit SUBCUT Q8H [facility] Hydromorphone HCl (Hydromorphone Hcl 1 Mg/Ml Syringe) 0.5 mg IVPUSH Q4H PRN; Protocol PRN Reason: Pain, Severe (Pain Scale 7-10) Dextrose/Sodium Chloride (D51/2ns) 1,000 mls @ 50 mls/hr IVCONT .Q20H [facility] Lamotrigine (Lamotrigine 100 Mg Tablet) 200 mg PO BEDTIME [facility] Lisinopril (Lisinopril 5 Mg Tablet) 5 mg PO DAILY [facility]; Protocol Loratadine (Loratadine 10 Mg Tablet) 10 mg PO DAILY [facility] Lorazepam (Lorazepam 1 Mg Tablet) 2 mg PO TID PRN PRN Reason: Anxiety Melatonin (Melatonin 3 Mg Tablet) 6 mg PO BEDTIME PRN PRN Reason: Insomnia Non-Formulary Medication (Rosuvastatin) 40 mg PO BEDTIME [facility] Non-Formulary Medication (Insulin Degludec [Tresiba Flextouch U-100]) 40 unit SUBCUT BEDTIME [facility] Omeprazole (Omeprazole 20 Mg Capsule.Dr) 20 mg PO DAILY@0630 [facility] Oxybutynin Chloride (Oxybutynin Chloride Er 5 Mg Tab.Er.24) 10 mg PO DAILY [facility] Oxycodone HCl (Oxycodone Hcl Er 10 Mg Tab.Er.12h) 30 mg PO BID [facility] Pharmacy Consult (Consult Rx Perform Med Rec) 1 each MISCELLANE ONCE PRN PRN Reason: Consult order Propranolol HCl (Propranolol Hcl La 60 Mg Cap.Sa.24h) 120 mg PO DAILY [facility]; Protocol Senna (Sennosides 8.6 Mg Tablet) 17.2 mg PO BEDTIME PRN PRN Reason: Constipation Sodium Chloride (0.9 % Sodium Chloride Flush 3 Ml Syringe) 3 ml IVFLUSH QSHIFT [facility] Zolpidem Tartrate (Zolpidem Tartrate 5 Mg Tablet) 10 mg PO BEDTIME PRN PRN Reason: Insomnia Home Medications Medication Instructions Recorded Confirmed Last Taken Type amlodipine 10 mg tablet 10 mg PO DAILY 07/07/20 12/30/21 04/08/21 History aspirin 81 mg tablet,delayed 81 mg PO DAILY 07/07/20 12/30/21 04/08/21 History release bupropion HCl 300 mg 24 hr tablet, 300 mg PO DAILY 07/07/20 12/30/21 04/08/21 History extended release chlorthalidone 25 mg tablet 25 mg PO DAILY 07/07/20 12/30/21 04/08/21 History finasteride 5 mg tablet 5 mg PO DAILY 07/07/20 12/30/21 04/08/21 History insulin aspart U-100 100 unit/mL See Rx Instructions .Route .COMPLEX 07/07/20 12/30/21 04/07/21 History (3 mL) subcutaneous pen (Novolog Flexpen U-100 Insulin aspart) lisinopril 5 mg tablet 5 mg PO DAILY 07/07/20 12/30/21 04/08/21 History loratadine 10 mg tablet 10 mg PO DAILY 07/07/20 12/30/21 04/08/21 History lorazepam 2 mg tablet 1 tab PO TID PRN Anxiety 07/07/20 12/30/21 04/08/21 History nabumetone 500 mg tablet 500 tab PO BID 07/07/20 12/30/21 04/08/21 History nystatin 100,000 unit/gram topical 1 applic topical QID 07/07/20 12/30/21 04/08/21 History powder ([facility]) oxybutynin chloride 10 mg 10 mg PO DAILY 07/07/20 12/30/21 04/08/21 History tablet,extended release 24 hr propranolol 120 mg capsule,24 120 mg PO DAILY 07/07/20 12/30/21 04/08/21 History hr,extended release rosuvastatin 40 mg tablet 40 mg PO BEDTIME 07/07/20 12/30/21 04/07/21 History zolpidem 10 mg tablet 10 mg PO BEDTIME PRN Insomnia 07/07/20 12/30/21 04/07/21 History fluticasone propionate 110 2 puff inhalation BID 04/08/21 12/30/21 04/07/21 History mcg/actuation HFA aerosol inhaler (Flovent HFA) gabapentin 300 mg capsule 900 mg PO TID 04/08/21 12/30/21 04/08/21 History semaglutide 7 mg tablet (Rybelsus) 1 tab PO DAILY 04/08/21 12/30/21 04/08/21 History Lactobacillus rhamnosus GG 15 2 cap PO DAILY 12/30/21 12/30/21 Unknown History billion cell sprinkle capsule (Culturelle) doxycycline hyclate 100 mg capsule 1 cap PO Q12H 12/30/21 12/30/21 Unknown History ergocalciferol (vitamin D2) 1,250 50,000 unit PO QWEEK 12/30/21 12/30/21 Unknown History mcg (50,000 unit) capsule (Vitamin D2) fluticasone propionate 50 1 spray intranasal DAILY 12/30/21 12/30/21 Unknown History mcg/actuation nasal spray,suspension insulin degludec 100 unit/mL (3 80 unit subcut BEDTIME 12/30/21 12/30/21 Unknown History mL) subcutaneous pen (Tresiba FlexTouch U-100 insulin) lamotrigine 25 mg tablet 200 mg PO BEDTIME 12/30/21 12/30/21 Unknown History omeprazole 20 mg capsule,delayed 1 cap PO DAILY 12/30/21 12/30/21 Unknown History release oxycodone 20 mg tablet 20 mg PO Q4H PRN Pain 12/30/21 12/30/21 Unknown History oxycodone 30 mg tablet,crush 1 tab PO BID 12/30/21 12/30/21 Unknown History resistant,extended release 12 hr (OxyContin) simethicone 125 mg chewable tablet mg PO BID PRN Gastric Reflux 12/30/21 Unknown History Physical Exam Vital Signs and Narrative: Vital Signs: Last Vital Signs Temp 98.8 F 12/30/21 22:30 Pulse 81 12/30/21 23:10 Resp 14 12/30/21 23:30 BP 192/91 H 12/30/21 23:10 Pulse Ox 96 12/30/21 23:30 BMI result Body Mass Index 42.6 Gen: Appears be in no acute distress HEENT: NCAT, Moist mucosa. Pulmonary: Vesicular breath sounds, fair air entry CVS: Normal S1-S2 Abdomen: BS+, Soft, diffusely tender; no guarding or rigidity Extremities: Warm well perfused; mildly tender on the upper lumbar spine. Neuro: Alert and awake.; oriented x3; strength 5/5 in bilateral upper and lower extremities; sensations equal bilaterally; per ER team patient has slightly decreased rectal tone; no saddle anesthesia. Results Labs CBC and Chem 7: 12/31/21 05:22 12/31/21 05:22 Labs: Laboratory Results - last 24 hr 12/30/21 12/30/21 12/30/21 18:30 18:30 18:30 MCV 85.6 MCH 28.9 MCHC 33.8 RDW 13.6 Plt Count 431 H MPV 9.1 L Immature Gran % (Auto) 0.6 H Neut % (Auto) 81.9 H Lymph % (Auto) 12.0 L [place] % (Auto) 4.2 Eos % (Auto) 0.9 Baso % (Auto) 0.4 Lymph # (Auto) 1.6 [place] # (Auto) 0.6 Eos # (Auto) 0.1 Baso # (Auto) 0.1 Abs Immat Gran (auto) 0.08 H Absolute Neuts (auto) 10.7 H Absolute Nucleated RBC 0.000 Nucleated RBC % (auto) 0.0 ESR Anion Gap 17 Estim Creat Clear Calc 83.6 Estimated GFR 51 Random Glucose 272 H Calcium 12.8 H* D Total Bilirubin 0.5 Direct Bilirubin 0.2 AST 12 ALT 27 Alkaline Phosphatase 208 H D Troponin I High Sens 6.6 C-Reactive Protein 2.62 H Total Protein 8.2 H Albumin 4.6 Urine Color Urine Appearance Urine pH Ur Specific [place] Urine Protein Urine Glucose (UA) Urine Ketones Urine Blood Urine Nitrite Ur Leukocyte Esterase Urine RBC Urine WBC Ur Squamous Epith Cells Urine Bacteria Urine Mucus COVID-19 ([facility]) COVID-19 Clin Com 12/30/21 12/30/21 12/30/21 18:30 18:30 20:05 MCV MCH MCHC RDW Plt Count MPV Immature Gran % (Auto) Neut % (Auto) Lymph % (Auto) [place] % (Auto) Eos % (Auto) Baso % (Auto) Lymph # (Auto) [place] # (Auto) Eos # (Auto) Baso # (Auto) Abs Immat Gran (auto) Absolute Neuts (auto) Absolute Nucleated RBC Nucleated RBC % (auto) ESR 67 H Anion Gap Estim Creat Clear Calc Estimated GFR Random Glucose Calcium Total Bilirubin Direct Bilirubin AST ALT Alkaline Phosphatase Troponin I High Sens C-Reactive Protein Total Protein Albumin Urine Color YELLOW Urine Appearance CLEAR Urine pH 8.0 Ur Specific [place] 1.025 Urine Protein 2+ H Urine Glucose (UA) 250 H Urine Ketones NEG Urine Blood NEG Urine Nitrite NEG Ur Leukocyte Esterase NEG Urine RBC 0-2 Urine WBC 0-2 Ur Squamous Epith Cells TRACE Urine Bacteria NONE Urine Mucus TRACE COVID-19 ([facility]) Negative COVID-19 Clin Com See Note Imaging Radiologist's Impressions: Impressions Abdomen/Pelvis CT 12/30/21 20:36 IMPRESSION: No significant abnormality. Fleischner guidelines were followed. Assessment and Plan (1) Abdominal pain: Status: Acute Plan 51-year-old female with a past medical history of anxiety, depression, borderline personality disorder, chronic back pain, CKD, hypertension, hyperlipidemia, diabetes, obesity; history of diskitis/osteomyelitis of the spine; presented to the hospital today with a chief complaint of abdominal pain/nausea/vomiting/diarrhea. Abdominal pain: CT abdomen showed no acute intra-abdominal process. Will obtain stool studies including C diff. supportive care Back pain: Patient has prior history of diskitis/osteomyelitis of the spine. On exam patient had decreased rectal tone as per the ER team. No saddle anesthesia. Sensations a: Bilateral lower extremities. Strength is 5/5 in bilateral lower extremities. CT scan showed mild loss of disc space of L2-L3, L3-L4, L4-L5; Diffuse disc bulges at L2-L3, L3-L4; central disc protrusion of L4-L5, L5-S1; mild bilateral foraminal narrowing L2-L3, L3-L4, L4-L5, L5-S1.; mild facet arthropathy throughout the lumbar spine Will obtain ESR/CRP Patient is currently afebrile, no leukocytosis. Will hold of antibiotics until MRI Will obtain MRI of the lumbar and thoracic spine Will also consult Neurology for further recommendations Hypercalcemia: Patient noted to have calcium level of 12.8 on presentation. Had normal calcium levels at [facility]. Continue IV fluids. Patient reports that she has been taking vitamin-D supplementation for long time. Recommended to hold vitamin-D supplementation for few weeks. History of diabetes: Will reduce the home insulin regimen-Tresiba to 40 units for now. Insulin sliding scale. Monitor fingerstick glucose. For all other chronic conditions, home medications will be continued DVT prophylaxis: Subcu heparin Code status: Full code Quality Stroke Does the patient have a stroke diagnosis?: No VTE Prior VTE?: No VTE Risk Level:: Medical - moderate - high VTE Device Contraindication: Treatment Not Indicated VTE Drug Contraindication: N/A - Med Ordered
[2021-12-31] VITALS (7 sets, daily range): BP systolic 136–190; BP diastolic 62–93; PULSE 77–96; RESP 14–24; TEMP 37.1–37.2; O2SAT 96–98
[2021-12-31] MEDS: Dextrose 5 % and 0.45 % NaCl 1,000 ML 50 ML IVCONT ×2 (00:11→18:56)
[2021-12-31] MEDS: Heparin Sodium,Porcine 5,000 UNIT/ML VIAL 5000 UNIT SUBCUT ×3 (00:12→16:48)
[2021-12-31] MEDS: LORazepam 1 MG TABLET 2 MG PO ×2 (00:12→15:34)
[2021-12-31] MEDS: Zolpidem Tartrate 5 MG TABLET 10 MG PO ×2 (00:12→20:52)
--- NOTE | 2021-12-31 01:00 | PC.NURSE ---
made aware that there is no Miacalcin in they pyxis/pharamacy at this time
--- NOTE | 2021-12-31 03:50 | PC.NURSE ---
pt calling for nurse. upon entering room and asking pt how she is doing, pt states, im not staying in this bed, i want a hospital bed, this is uncomfortable and wrong. pt offered assistance to help reposition. pt agitated stating no thats not going to help. pt states well if im not going to get a real bed then i need pain medication. pt was asked what her pain score was to which she replied 05/28. pt medicated with PRN dilaudid. pt continues to state, im not staying here, i need to leave, this is wrong. pt reassured and resting in bed at this time
[2021-12-31] MEDS: HYDROmorphone HCl 1 MG/ML SYRINGE 0.5 MG IVPUSH ×5 (03:56→20:52)
--- NOTE | 2021-12-31 04:35 | PC.NURSE ---
pt transferred to a hospital bed by RN, and 2 ED techs.
[2021-12-31 05:38] LABS: MANUAL DIFF FLAG NO
[2021-12-31 05:40] LABS: Basophils Absolute Auto 0.1 X10*3/uL (0.0-0.2); Basophils Percent Auto 0.4 % (0-2); Eosinophils Absolute Auto 0.2 X10*3/uL (0.0-0.4); Eosinophils Percent Auto 1.8 % (0-4); Hemoglobin 12.6 g/dl (12.0-16.0); Imm Gran Abs Auto 0.05 X10*3/uL (0.00-0.03); Imm Gran Pct Auto 0.4 % (0.0-0.4); Lymphocytes Absolute Auto 2.2 X10*3/uL (1.2-4.9); Lymphocytes Percent Auto 17.3 % (20-40); Mean Corpuscular HGB Conc 33.2 g/dl (31.0-35.0); Mean Corpuscular Volume 87.4 fL (80.0-98.0); Mean Platelet Volume 9.4 fL (9.4-12.3); Monocytes Absolute Auto 0.7 X10*3/uL (0.1-1.2); Monocytes Percent Auto 5.4 % (2-11); Neutrophils Absolute Auto 9.4 x10*3/uL (2.0-8.3); Neutrophils Percent Auto 74.7 % (45-73); Platelet Count 373 X10*3/uL (160-400); Red Blood Count 4.35 X10*6/uL (4.20-5.50); Red Cell Distribution Width 13.8 % (11.0-16.0); White Blood Count 12.6 X10*3/uL (4.8-10.8)
[2021-12-31 05:56] LABS: Anion Gap 15 (12-20); Blood Urea Nitrogen 13 mg/dL (9-16); Calcium 10.3 mg/dL (8.4-10.2); Carbon Dioxide 24 mmol/L (22-29); Chloride 99 mmol/L (96-108); Creatinine Clr Calc Pharmacy 100.7; Estimated Glomerular Filt Rate > 60; Glucose Random 175 mg/dL (60-115); Potassium 3.9 mmol/L (3.3-5.1); Sodium 134 mmol/L (135-145)
[2021-12-31 06:08] LABS: Glucose, Whole Blood 163 mg/dL (60-115)
[2021-12-31] MEDS: Omeprazole 20 MG CAPSULE.DR PO (06:09)
[2021-12-31] MEDS: Finasteride 5 MG TABLET PO (08:06)
[2021-12-31] MEDS: Gabapentin 300 MG CAPSULE 900 MG PO ×3 (08:06→20:22)
[2021-12-31] MEDS: Atorvastatin Calcium 80 MG TABLET PO (08:07)
[2021-12-31] MEDS: oxyCODONE HCl ER 10 MG TAB.ER.12H 30 MG PO ×2 (08:07→20:22)
[2021-12-31] MEDS: buPROPion HCl XL 300 MG TAB.ER.24H PO (08:07)
[2021-12-31] MEDS: Aspirin Enteric Coated 81 MG TABLET.DR PO (08:07)
[2021-12-31] MEDS: lisinopriL 5 MG TABLET PO (08:07)
[2021-12-31] MEDS: amLODIPine Besylate 10 MG TABLET PO (08:07)
[2021-12-31] MEDS: Loratadine 10 MG TABLET PO (08:07)
[2021-12-31 08:11] LABS: Glucose, Whole Blood 229 mg/dL (60-115)
--- NOTE | 2021-12-31 10:38 | MHC.CARE ---
Please consult CARE Team when medically cleared
--- NOTE | 2021-12-31 11:00 | P.CNNE_ITS ---
History of Present Illness Data of Consult Service Date: 12/31/21 Primary Care Provider: Unknown Physician HPI Reason for consult: Back pain 51 years old woman who said that her main reason to come to emergency room was abdominal pain. She also had chronic low back pain but with abdominal pain she was having pain in middle part of her spine which was about moderate in intensity when I saw her. She also reported that her feet were numb. There was no complaint of bowel bladder difficulty though apparently a rectal exam was done and rectal tone was noted to be low. Review of Systems Review of Systems: She denied any constipation or any cold or flu-like illness no bowel bladder loss of continence PMFSH Past Medical History Medical History (Updated 12/31/21 @ 11:03 by Matt Villa MD) Agoraphobia Anxiety Asthma Borderline personality disorder Chronic back pain Chronic kidney disease Depression Diabetes Hypertension Obesity Surgical History Surgical History H/O oophorectomy History of appendectomy Social History Social History (Updated 04/08/21 @ 19:54 by Erika Nina DO) Patient Tobacco Use Status: Tobacco use Unknown Advance Directives: No Advance Directives Information Provided: No Meds Allergies Allergy/AdvReac Type Severity Reaction Status Date / Time metformin Allergy Severe Unknown Verified 07/07/20 08:27 acetaminophen [From TYLENOL] Allergy Unknown HIVES Verified 07/07/20 08:27 clonazepam [From KLONOPIN] Allergy Unknown HIVES Verified 07/07/20 08:27 Active Medications: Current Medications Amlodipine Besylate (Amlodipine Besylate 10 Mg Tablet) 10 mg PO DAILY [facility]; Protocol Last Admin: 12/31/21 08:07 Dose: 10 mg Documented by: Aspirin (Aspirin Enteric Coated 81 Mg Tablet.) 81 mg PO DAILY [facility] Last Admin: 12/31/21 08:07 Dose: 81 mg Documented by: Atorvastatin Calcium (Atorvastatin Calcium 80 Mg Tablet) 80 mg PO DAILY [facility] Last Admin: 12/31/21 08:07 Dose: 80 mg Documented by: Bupropion HCl (Bupropion Hcl Xl 300 Mg Tab.Er.24h) 300 mg PO DAILY [facility] Last Admin: 12/31/21 08:07 Dose: 300 mg Documented by: Calcitonin Curtis (Calcitonin,Curtis,Synth Nasal 3.7 Ml Bottle) 1 spray NOSTRILALT BEDTIME [facility] Last Admin: 12/31/21 00:59 Dose: Not Given Documented by: Dextrose (Dextrose 50 % 25 Gm/50 Ml Syringe) 25 gm IVPUSH Q15M PRN; Protocol PRN Reason: per Hypoglycemia Standing Ord. Docusate Sodium (Docusate Sodium 100 Mg Capsule) 100 mg PO DAILY PRN PRN Reason: Constipation Doxycycline Hyclate (Doxycycline Hyclate 100 Mg Tablet) 100 mg PO Q12H [facility] Last Admin: 12/31/21 00:12 Dose: 100 mg Documented by: Ergocalciferol (Ergocalciferol (Vitamin D2) 1,250 Mcg Capsule) 1,250 mcg PO Th@0900 [facility] Finasteride (Finasteride 5 Mg Tablet) 5 mg PO DAILY [facility] Last Admin: 12/31/21 08:06 Dose: 5 mg Documented by: Fluticasone Propionate (Fluticasone Propionate Nasal 16 Gm [place]) 1 spray NOSTRIL-B DAILY [facility] Last Admin: 12/31/21 08:15 Dose: Not Given Documented by: Gabapentin (Gabapentin 300 Mg Capsule) 900 mg PO TID [facility] Last Admin: 12/31/21 08:06 Dose: 900 mg Documented by: Glucose (Glucose Gel 15 Gm Gel..Gram.) 15 gm PO Q15M PRN; Protocol PRN Reason: per Hypoglycemia Standing Ord. Heparin Sodium (Porcine) (Heparin Sodium,Porcine 5,000 Unit/Ml Vial) 5,000 unit SUBCUT Q8H [facility] Last Admin: 12/31/21 08:07 Dose: 5,000 unit Documented by: Hydromorphone HCl (Hydromorphone Hcl 1 Mg/Ml Syringe) 0.5 mg IVPUSH Q4H PRN; Protocol PRN Reason: Pain, Severe (Pain Scale 7-10) Last Admin: 12/31/21 08:06 Dose: 0.5 mg Documented by: Dextrose/Sodium Chloride (D51/2ns) 1,000 mls @ 50 mls/hr IVCONT .Q20H [facility] Last Admin: 12/31/21 00:11 Dose: 50 mls/hr Documented by: Insulin Glargine (Insulin Glargine,Hum.Rec.Anlog 100 Unit/Ml 10 Ml Vial) 14 unit SUBCUT BEDTIME [facility] Insulin Human Lispro (Insulin Lispro 100 Unit/Ml 3 Ml Vial) 0 unit SUBCUT QIDACHS [facility]; Protocol Last Admin: 12/31/21 07:46 Dose: Not Given Documented by: Lamotrigine (Lamotrigine 100 Mg Tablet) 200 mg PO BEDTIME [facility] Lisinopril (Lisinopril 5 Mg Tablet) 5 mg PO DAILY [facility]; Protocol Last Admin: 12/31/21 08:07 Dose: 5 mg Documented by: Loratadine (Loratadine 10 Mg Tablet) 10 mg PO DAILY [facility] Last Admin: 12/31/21 08:07 Dose: 10 mg Documented by: Lorazepam (Lorazepam 1 Mg Tablet) 2 mg PO TID PRN PRN Reason: Anxiety Last Admin: 12/31/21 00:12 Dose: 2 mg Documented by: Melatonin (Melatonin 3 Mg Tablet) 6 mg PO BEDTIME PRN PRN Reason: Insomnia Omeprazole (Omeprazole 20 Mg Capsule.Dr) 20 mg PO DAILY@0630 [facility] Last Admin: 12/31/21 06:09 Dose: 20 mg Documented by: Oxybutynin Chloride (Oxybutynin Chloride Er 5 Mg Tab.Er.24) 10 mg PO DAILY [facility] Last Admin: 12/31/21 08:07 Dose: 10 mg Documented by: Oxycodone HCl (Oxycodone Hcl Er 10 Mg Tab.Er.12h) 30 mg PO BID [facility] Last Admin: 12/31/21 08:07 Dose: 30 mg Documented by: Pharmacy Consult (Consult Rx Perform Med Rec) 1 each MISCELLANE ONCE PRN PRN Reason: Consult order Propranolol HCl (Propranolol Hcl La 60 Mg Cap.Sa.24h) 120 mg PO DAILY [facility]; Protocol Senna (Sennosides 8.6 Mg Tablet) 17.2 mg PO BEDTIME PRN PRN Reason: Constipation Sodium Chloride (0.9 % Sodium Chloride Flush 3 Ml Syringe) 3 ml IVFLUSH QSHIFT [facility] Last Admin: 12/31/21 07:49 Dose: Not Given Documented by: Zolpidem Tartrate (Zolpidem Tartrate 5 Mg Tablet) 10 mg PO BEDTIME PRN PRN Reason: Insomnia Last Admin: 12/31/21 00:12 Dose: 10 mg Documented by: Home Medications Medication Instructions Recorded Confirmed Last Taken Type amlodipine 10 mg tablet 10 mg PO DAILY 07/07/20 12/30/21 04/08/21 History aspirin 81 mg tablet,delayed 81 mg PO DAILY 07/07/20 12/30/21 04/08/21 History release bupropion HCl 300 mg 24 hr tablet, 300 mg PO DAILY 07/07/20 12/30/21 04/08/21 History extended release chlorthalidone 25 mg tablet 25 mg PO DAILY 07/07/20 12/30/21 04/08/21 History finasteride 5 mg tablet 5 mg PO DAILY 07/07/20 12/30/21 04/08/21 History insulin aspart U-100 100 unit/mL See Rx Instructions .ROUTE .COMPLEX 07/07/20 12/30/21 04/07/21 History (3 mL) subcutaneous pen (Novolog Flexpen U-100 Insulin aspart) lisinopril 5 mg tablet 5 mg PO DAILY 07/07/20 12/30/21 04/08/21 History loratadine 10 mg tablet 10 mg PO DAILY 07/07/20 12/30/21 04/08/21 History lorazepam 2 mg tablet 1 tab PO TID PRN 07/07/20 12/30/21 04/08/21 History nabumetone 500 mg tablet 500 tab PO BID 07/07/20 12/30/21 04/08/21 History nystatin 100,000 unit/gram topical 1 applic TOPICAL QID 07/07/20 12/30/21 04/08/21 History powder (Nyamyc) oxybutynin chloride 10 mg 10 mg PO DAILY 07/07/20 12/30/21 04/08/21 History tablet,extended release 24 hr propranolol 120 mg capsule,24 120 mg PO DAILY 07/07/20 12/30/21 04/08/21 History hr,extended release rosuvastatin 40 mg tablet 40 mg PO BEDTIME 07/07/20 12/30/21 04/07/21 History zolpidem 10 mg tablet 10 mg PO BEDTIME PRN 07/07/20 12/30/21 04/07/21 History fluticasone propionate 110 2 puff INHALATION BID 04/08/21 12/30/21 04/07/21 History mcg/actuation HFA aerosol inhaler (Flovent HFA) gabapentin 300 mg capsule 900 mg PO TID 04/08/21 12/30/21 04/08/21 History semaglutide 7 mg tablet (Rybelsus) 1 tab PO DAILY 04/08/21 12/30/21 04/08/21 History Lactobacillus rhamnosus GG 15 2 cap PO DAILY 12/30/21 12/30/21 Unknown History billion cell sprinkle capsule (Culturelle) doxycycline hyclate 100 mg capsule 1 cap PO Q12H 12/30/21 12/30/21 Unknown History ergocalciferol (vitamin D2) 1,250 50,000 unit PO QWEEK 12/30/21 12/30/21 Unknown History mcg (50,000 unit) capsule (Vitamin D2) fluticasone propionate 50 1 spray INTRANASAL DAILY 12/30/21 12/30/21 Unknown Hi story mcg/actuation nasal spray,suspension insulin degludec 100 unit/mL (3 80 unit SUBCUT BEDTIME 12/30/21 12/30/21 Unknown History mL) subcutaneous pen (Tresiba FlexTouch U-100 insulin) lamotrigine 25 mg tablet 200 mg PO BEDTIME 12/30/21 12/30/21 Unknown History omeprazole 20 mg capsule,delayed 1 cap PO DAILY 12/30/21 12/30/21 Unknown History release oxycodone 20 mg tablet 20 mg PO Q4H PRN 12/30/21 12/30/21 Unknown History oxycodone 30 mg tablet,crush 1 tab PO BID 12/30/21 12/30/21 Unknown History resistant,extended release 12 hr (OxyContin) simethicone 125 mg chewable tablet mg PO BID PRN 12/30/21 Unknown History Physical Exam Vital Signs: Vital Signs: Last Vital Signs Temp 99.0 F 12/31/21 03:39 Pulse 93 12/31/21 07:44 Resp 24 H 12/31/21 07:44 BP 187/93 H 12/31/21 07:44 Pulse Ox 96 12/31/21 07:44 BMI result Body Mass Index 42.6 Neuro: Other: She was alert and awake with normal spontaneity of speech fluency comprehension and affect. Exam was somewhat limited as she resisted to exam due to pain. She was able to move her legs and regular toes. Deep tendon reflexes were trace to absent. Plantars were flexor. Palpation of mid thoracic spine was painful for her. Results Labs CBC & Chem 7: 12/31/21 05:22 12/31/21 05:22 Labs: Short CBC 04/14/22 04/15/22 Range/Units 18:30 05:22 WBC 13.0 H 12.6 H (4.8-10.8) X10*3/uL Hgb 14.3 12.6 (12.0-16.0) g/dl Hct 42.3 38.0 (37.0-47.0) % Plt Count 431 H 373 (160-400) X10*3/uL BMP 12/30/21 12/31/21 18:30 05:22 Sodium 133 L 134 L Potassium 4.2 3.9 Chloride 92 L 99 Carbon Dioxide 28 24 BUN 15 13 Creatinine 1.12 0.93 Calcium 12.8 H* D 10.3 H D Liver Function 12/30/21 Range/Units 18:30 Total Bilirubin 0.5 (0.0-1.0) mg/dL Direct Bilirubin 0.2 (0.0-0.5) mg/dL AST 12 (5-31) U/L ALT 27 (0-31) U/L Alkaline Phosphatase 208 H D (39-117) U/L Albumin 4.6 (3.5-5.0) g/dL Urine 12/30/21 Range/Units 20:05 Urine Color YELLOW Urine Appearance CLEAR Urine pH 8.0 (5.0-8.0) Ur Specific [place] 1.025 (1.005-1.025) Urine Protein 2+ H (NEG-TRACE) MG/DL Urine Glucose (UA) 250 H (NEG) MG/DL CT of pelvis abdomen a lumbosacral spine did not reveal any explanation for her symptoms though degenerative changes were noted in spine. Assessment and Plan (1) Back pain: Status: Acute 51 years old woman with severe abdominal pain with back pain that she reported in the middle of her spine not and lower spine. She was complaining of numbness in her feet. Examination did not reveal any obvious upper motor neuron sign. She said that this pain was different from lower back pain she used to have so far imaging has not revealed any explanation in her belly. I recommend obtaining a thoracic spine MRI to rule out any possibility of thoracic spine area lesion explaining her symptoms. Procedures Date of Service Date of Service: 12/31/21
--- NOTE | 2021-12-31 11:15 | PC.NURSE ---
Spoke with patient regarding having MRI; patient states that she needs to be asleep and that she has been asleep for all previous MRI's, including ones that shes had here. Hospitalist notified. To bedside.
--- NOTE | 2021-12-31 11:47 | PC.NURSE ---
patient currently sleeping, sitter at bedside, sitter will obtain RR to enter as vitals as patient has been refusing. mri was told by previous nurse that the patient is refusing unless they are sedated, hospitalist is aware, will continue to monitor.
--- NOTE | 2021-12-31 12:00 | MHC.CM.PN ---
Patient lives in an apartment with her Son/LEASE ADMINISTRATION SUPERVISOR/Rodrick at [phone] and she uses a cane to assist with mobility. Rodrick is his Mother's Luis LEASE ADMINISTRATION SUPERVISOR 34 hours/week and home/resume said services is the goal. CM has initiated and will follow for dc planning. Patient has received Covid vax X3 and PCP is DR. Angela Armenta.
--- NOTE | 2021-12-31 13:04 | PC.NURSE ---
pt medicated per order, pt took po medication with small sip of water
[2021-12-31 13:07] LABS: Glucose, Whole Blood 218 mg/dL (60-115)
[2021-12-31] MEDS: Insulin Lispro 100 UNIT/ML 3 ML VIAL SUBCUT ×2 (13:18→20:24)
--- NOTE | 2021-12-31 13:23 | P.PNIM_ITS ---
Subjective Subjective Date of Service: 01/01/22 Interval History: f/u on abodminal pain, back pain interval history: c/o abdominal pain, back pain. Review of Systems no fever no focal weakness, back pain and abdominal pain Physical Exam Vital Signs: Vital Signs: Last Vital Signs Temp 99.0 F 12/31/21 03:39 Pulse 85 12/31/21 12:12 Resp 16 12/31/21 12:12 BP 164/80 H 12/31/21 12:12 Pulse Ox 96 12/31/21 12:12 BMI result Body Mass Index 42.6 Const: Other: General: AO X 3, no acute distress, morbidly obes Resp: CTA bilateral CVS: S1,S2,RRR GI: +BS, NT, no distention Skin: No rash Neuro: strenght in both upper and lower extremities are equal michaela--5/5, no numbness, no urinary or stool incontinence Psych: flat affect Objective Data Active Medications Amlodipine Besylate (Amlodipine Besylate 10 Mg Tablet) 10 mg PO DAILY [facility]; Protocol Last Admin: 12/31/21 08:07 Dose: 10 mg Documented by: JOSE C Aspirin (Aspirin Enteric Coated 81 Mg Tablet.) 81 mg PO DAILY [facility] Last Admin: 12/31/21 08:07 Dose: 81 mg Documented by: JOSE C Atorvastatin Calcium (Atorvastatin Calcium 80 Mg Tablet) 80 mg PO DAILY [facility] Last Admin: 12/31/21 08:07 Dose: 80 mg Documented by: JOSE C Bupropion HCl (Bupropion Hcl Xl 300 Mg Tab.Er.24h) 300 mg PO DAILY [facility] Last Admin: 12/31/21 08:07 Dose: 300 mg Documented by: JOSE C Calcitonin [place] (Calcitonin,[place],Synth Nasal 3.7 Ml Bottle) 1 spray NOSTRILALT BEDTIME [facility] Last Admin: 12/31/21 00:59 Dose: Not Given Documented by: ROLANDO Non-Admin Reason: Med Not Available Dextrose (Dextrose 50 % 25 Gm/50 Ml Syringe) 25 gm IVPUSH Q15M PRN; Protocol PRN Reason: per Hypoglycemia Standing Ord. Docusate Sodium (Docusate Sodium 100 Mg Capsule) 100 mg PO DAILY PRN PRN Reason: Constipation Doxycycline Hyclate (Doxycycline Hyclate 100 Mg Tablet) 100 mg PO Q12H [facility] Last Admin: 12/31/21 12:43 Dose: 100 mg Documented by: CHUY Ergocalciferol (Ergocalciferol (Vitamin D2) 1,250 Mcg Capsule) 1,250 mcg PO Th@0900 [facility] Finasteride (Finasteride 5 Mg Tablet) 5 mg PO DAILY [facility] Last Admin: 12/31/21 08:06 Dose: 5 mg Documented by: JOSE C Fluticasone Propionate (Fluticasone Propionate Nasal 16 Gm [place]) 1 spray NOSTRIL-B DAILY [facility] Last Admin: 12/31/21 08:15 Dose: Not Given Documented by: JOSE C Non-Admin Reason: Med Not Available Gabapentin (Gabapentin 300 Mg Capsule) 900 mg PO TID [facility] Last Admin: 12/31/21 08:06 Dose: 900 mg Documented by: JOSE C Glucose (Glucose Gel 15 Gm Gel..Gram.) 15 gm PO Q15M PRN; Protocol PRN Reason: per Hypoglycemia Standing Ord. Heparin Sodium (Porcine) (Heparin Sodium,Porcine 5,000 Unit/Ml Vial) 5,000 unit SUBCUT Q8H [facility] Last Admin: 12/31/21 08:07 Dose: 5,000 unit Documented by: JOSE C Hydromorphone HCl (Hydromorphone Hcl 1 Mg/Ml Syringe) 0.5 mg IVPUSH Q4H PRN; Protocol PRN Reason: Pain, Severe (Pain Scale 7-10) Last Admin: 12/31/21 12:43 Dose: 0.5 mg Documented by: CHUY Dextrose/Sodium Chloride (D51/2ns) 1,000 mls @ 50 mls/hr IVCONT .Q20H [facility] Last Admin: 12/31/21 00:11 Dose: 50 mls/hr Documented by: ROLANDO Insulin Glargine (Insulin Glargine,Hum.Rec.Anlog 100 Unit/Ml 10 Ml Vial) 14 unit SUBCUT BEDTIME [facility] Insulin Human Lispro (Insulin Lispro 100 Unit/Ml 3 Ml Vial) 0 unit SUBCUT QIDACHS [facility]; Protocol Last Admin: 12/31/21 13:18 Dose: 4 unit Documented by: CHUY Lamotrigine (Lamotrigine 100 Mg Tablet) 200 mg PO BEDTIME [facility] Lisinopril (Lisinopril 5 Mg Tablet) 5 mg PO DAILY [facility]; Protocol Last Admin: 12/31/21 08:07 Dose: 5 mg Documented by: JOSE C Loratadine (Loratadine 10 Mg Tablet) 10 mg PO DAILY [facility] Last Admin: 12/31/21 08:07 Dose: 10 mg Documented by: JOSE C Lorazepam (Lorazepam 1 Mg Tablet) 2 mg PO TID PRN PRN Reason: Anxiety Last Admin: 12/31/21 00:12 Dose: 2 mg Documented by: ROLANDO Melatonin (Melatonin 3 Mg Tablet) 6 mg PO BEDTIME PRN PRN Reason: Insomnia Omeprazole (Omeprazole 20 Mg Capsule.Dr) 20 mg PO DAILY@0630 [facility] Last Admin: 12/31/21 06:09 Dose: 20 mg Documented by: ROLANDO Oxybutynin Chloride (Oxybutynin Chloride Er 5 Mg Tab.Er.24) 10 mg PO DAILY [facility] Last Admin: 12/31/21 08:07 Dose: 10 mg Documented by: JOSE C Oxycodone HCl (Oxycodone Hcl Er 10 Mg Tab.Er.12h) 30 mg PO BID [facility] Last Admin: 12/31/21 08:07 Dose: 30 mg Documented by: JOSE C Pharmacy Consult (Consult Rx Perform Med Rec) 1 each MISCELLANE ONCE PRN PRN Reason: Consult order Propranolol HCl (Propranolol Hcl La 60 Mg Cap.Sa.24h) 120 mg PO DAILY [facility]; Protocol Last Admin: 12/31/21 11:20 Dose: Not Given Documented by: JOSE C Non-Admin Reason: Patient Asleep Senna (Sennosides 8.6 Mg Tablet) 17.2 mg PO BEDTIME PRN PRN Reason: Constipation Sodium Chloride (0.9 % Sodium Chloride Flush 3 Ml Syringe) 3 ml IVFLUSH QSHIFT [facility] Last Admin: 12/31/21 13:10 Dose: Not Given Documented by: CHUY Non-Admin Reason: IV Running Zolpidem Tartrate (Zolpidem Tartrate 5 Mg Tablet) 10 mg PO BEDTIME PRN PRN Reason: Insomnia Last Admin: 12/31/21 00:12 Dose: 10 mg Documented by: HO.N-COLEE Labs CBC & Chem 7: 12/31/21 05:22 12/31/21 05:22 Labs: Laboratory Results - last 24 hr 12/30/21 12/30/21 12/30/21 18:30 18:30 18:30 MCV 85.6 MCH 28.9 MCHC 33.8 RDW 13.6 Plt Count 431 H MPV 9.1 L Immature Gran % (Auto) 0.6 H Neut % (Auto) 81.9 H Lymph % (Auto) 12.0 L [place] % (Auto) 4.2 Eos % (Auto) 0.9 Baso % (Auto) 0.4 Lymph # (Auto) 1.6 [place] # (Auto) 0.6 Eos # (Auto) 0.1 Baso # (Auto) 0.1 Abs Immat Gran (auto) 0.08 H Absolute Neuts (auto) 10.7 H Absolute Nucleated RBC 0.000 Nucleated RBC % (auto) 0.0 ESR Anion Gap 17 Estim Creat Clear Calc 83.6 Estimated GFR 51 POC Glucose Random Glucose 272 H Calcium 12.8 H* D Total Bilirubin 0.5 Direct Bilirubin 0.2 AST 12 ALT 27 Alkaline Phosphatase 208 H D Troponin I High Sens 6.6 C-Reactive Protein 2.62 H Total Protein 8.2 H Albumin 4.6 Urine Color Urine Appearance Urine pH Ur Specific [place] Urine Protein Urine Glucose (UA) Urine Ketones Urine Blood Urine Nitrite Ur Leukocyte Esterase Urine RBC Urine WBC Ur Squamous Epith Cells Urine Bacteria Urine Mucus COVID-19 (ETHAN) COVID-19 Clin Com 12/30/21 12/30/21 12/30/21 18:30 18:30 20:05 MCV MCH MCHC RDW Plt Count MPV Immature Gran % (Auto) Neut % (Auto) Lymph % (Auto) [place] % (Auto) Eos % (Auto) Baso % (Auto) Lymph # (Auto) [place] # (Auto) Eos # (Auto) Baso # (Auto) Abs Immat Gran (auto) Absolute Neuts (auto) Absolute Nucleated RBC Nucleated RBC % (auto) ESR 67 H Anion Gap Estim Creat Clear Calc Estimated GFR POC Glucose Random Glucose Calcium Total Bilirubin Direct Bilirubin AST ALT Alkaline Phosphatase Troponin I High Sens C-Reactive Protein Total Protein Albumin Urine Color YELLOW Urine Appearance CLEAR Urine pH 8.0 Ur Specific [place] 1.025 Urine Protein 2+ H Urine Glucose (UA) 250 H Urine Ketones NEG Urine Blood NEG Urine Nitrite NEG Ur Leukocyte Esterase NEG Urine RBC 0-2 Urine WBC 0-2 Ur Squamous Epith Cells TRACE Urine Bacteria NONE Urine Mucus TRACE COVID-19 (ETHAN) Negative COVID-19 Clin Com See Note 12/31/21 12/31/21 12/31/21 05:22 05:22 05:57 MCV 87.4 MCH 29.0 MCHC 33.2 RDW 13.8 Plt Count 373 MPV 9.4 Immature Gran % (Auto) 0.4 Neut % (Auto) 74.7 H Lymph % (Auto) 17.3 L [place] % (Auto) 5.4 Eos % (Auto) 1.8 Baso % (Auto) 0.4 Lymph # (Auto) 2.2 [place] # (Auto) 0.7 Eos # (Auto) 0.2 Baso # (Auto) 0.1 Abs Immat Gran (auto) 0.05 H Absolute Neuts (auto) 9.4 H Absolute Nucleated RBC 0.000 Nucleated RBC % (auto) 0.0 ESR Anion Gap 15 Estim Creat Clear Calc 100.7 Estimated GFR > 60 POC Glucose 163 H Random Glucose 175 H Calcium 10.3 H D Total Bilirubin Direct Bilirubin AST ALT Alkaline Phosphatase Troponin I High Sens C-Reactive Protein Total Protein Albumin Urine Color Urine Appearance Urine pH Ur Specific [place] Urine Protein Urine Glucose (UA) Urine Ketones Urine Blood Urine Nitrite Ur Leukocyte Esterase Urine RBC Urine WBC Ur Squamous Epith Cells Urine Bacteria Urine Mucus COVID-19 (ETHAN) COVID-19 Clin Com 12/31/21 12/31/21 08:07 13:02 MCV MCH MCHC RDW Plt Count MPV Immature Gran % (Auto) Neut % (Auto) Lymph % (Auto) [place] % (Auto) Eos % (Auto) Baso % (Auto) Lymph # (Auto) [place] # (Auto) Eos # (Auto) Baso # (Auto) Abs Immat Gran (auto) Absolute Neuts (auto) Absolute Nucleated RBC Nucleated RBC % (auto) ESR Anion Gap Estim Creat Clear Calc Estimated GFR POC Glucose 229 H 218 H Random Glucose Calcium Total Bilirubin Direct Bilirubin AST ALT Alkaline Phosphatase Troponin I High Sens C-Reactive Protein Total Protein Albumin Urine Color Urine Appearance Urine pH Ur Specific [place] Urine Protein Urine Glucose (UA) Urine Ketones Urine Blood Urine Nitrite Ur Leukocyte Esterase Urine RBC Urine WBC Ur Squamous Epith Cells Urine Bacteria Urine Mucus COVID-19 (ETHAN) COVID-19 Clin Com Assessment and Plan (1) Back pain: Status: Acute (2) Abdominal pain: Status: Acute (3) Lower back pain: Status: Acute (4) Urinary incontinence: Status: Acute (5) Hypercalcemia: Status: Acute Plan 51-year-old female with a past medical history of anxiety, depression, borderline personality disorder, chronic back pain, CKD, hypertension, hyperlipidemia, diabetes, obesity; history of diskitis/osteomyelitis of the spine; presented to the hospital today with a chief complaint of abdominal pain/nausea/vomiting/diarrhea.? Abdominal pain:? CT abdomen showed no acute intra-abdominal process. ? Will obtain stool studies including C diff. supportive care Back pain: Patient has prior history of diskitis/osteomyelitis of the spine.? On exam patient had decreased rectal tone as per the ER team.? No saddle anesthesia.? Sensations a: Bilateral lower extremities.? Strength is 5/5 in bilateral lower extremities. CT scan showed?mild loss of disc space of L2-L3, L3-L4, L4-L5; Diffuse disc bulges at L2-L3, L3-L4; central disc protrusion of L4-L5, L5-S1; mild bilateral foraminal narrowing L2-L3, L3-L4, L4-L5, L5-S1.; mild facet arthropathy throughout the lumbar spine ESR is 67 and CRP is 2.8, there is no fever.. Cutlures pending Patient is currently afebrile, no leukocytosis.? Will hold of antibiotics until MRI MRI of the back is requested including lumbar and thoracic spine---she will only do MRI under anesthesia.--lot of technical difficulty to get thid done here, attempted to transfer to [facility] and they are not taking transfers. Neuro recommends throacic MRI--may need to be done at later time, anesthesia not able to do both lumber and thoracid today Hypercalcemia:? Patient noted to have calcium level of 12.8 on presentation.? Had normal calcium levels at [facility].? Continue IV fluids. Patient reports that she has been taking vitamin-D supplementation for long vidhi e.? Recommended to hold vitamin-D supplementation for few weeks. History of diabetes:? Will reduce the home insulin regimen-Tresiba to 40 units for now.? Insulin sliding scale.? Monitor fingerstick glucose. For all other chronic conditions, home medications will be continued Psyhc; multiple Psych issues, and reported have made suicide threat.. so has sitter right now DVT prophylaxis:? Subcu heparin Code status: Full code Quality Stroke Does the patient have a stroke diagnosis?: No VTE Prior VTE?: No VTE Risk Level:: Medical - moderate - high VTE Device Contraindication: Treatment Not Indicated VTE Drug Contraindication: N/A - Med Ordered
[2021-12-31 15:28] LABS: Glucose, Whole Blood 156 mg/dL (60-115)
[2021-12-31] MEDS: Nicotine 21 MG PATCH.TD24 TRANSDERMA (16:48)
[2021-12-31 20:03] LABS: Glucose, Whole Blood 256 mg/dL (60-115)
[2021-12-31] MEDS: lamoTRIgine 100 MG TABLET 200 MG PO (20:22)
[2021-12-31] MEDS: Insulin Glargine,Hum.rec.anlog 100 UNIT/ML 10 ML VIAL 14 UNIT SUBCUT (20:23)
[2021-12-31] MEDS: Calcitonin,Salmon,Synth Nasal 3.7 ML BOTTLE 1 SPRAY NOSTRILALT (20:53)
--- NOTE | 2021-12-31 22:56 | W.PM.IDCN ---
History of Present Illness Data of Consult Service Date: 12/31/21 Requesting physician: [facility] Primary Care Provider: Unknown Physician HPI Reason for consult: abdominal discomfortd She presents with bilateral lower abdominal discomfort,7/10 for three days. She reports prior diarrhea She has no fever or chills. SHe has had five admissions last several months to [facility] and last one 12/27-12/29 for abdominal pain. 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 Review of Systems Review of Systems: Yes all other systems are reviewed and are negative [facility] Past Medical History Medical History Agoraphobia Anxiety Asthma Borderline personality disorder Chronic back pain Chronic kidney disease Depression Diabetes Hypertension Obesity Family History Family history: reviewed and not pertinent Surgical History Surgical History H/O oophorectomy History of appendectomy Social History Social History Household Members: Caregiver Housing: Apartment Do you presently have visiting nurse or other home services: Yes Patient Tobacco Use Status: Tobacco use Unknown Tobacco use type: Cigarette Cigarette Packs Per Day: 1 Cigarettes Per Day: 20.0 service: No Current occupational status: disabled Meds Allergies Allergy/AdvReac Type Severity Reaction Status Date / Time metformin Allergy Severe Unknown Verified 07/07/20 08:27 acetaminophen [From TYLENOL] Allergy Unknown HIVES Verified 07/07/20 08:27 clonazepam [From KLONOPIN] Allergy Unknown HIVES Verified 07/07/20 08:27 Active Medications: Current Medications Amlodipine Besylate (Amlodipine Besylate 10 Mg Tablet) 10 mg PO DAILY [facility]; Protocol Last Admin: 12/31/21 08:07 Dose: 10 mg Documented by: Aspirin (Aspirin Enteric Coated 81 Mg Tablet.) 81 mg PO DAILY [facility] Last Admin: 12/31/21 08:07 Dose: 81 mg Documented by: Atorvastatin Calcium (Atorvastatin Calcium 80 Mg Tablet) 80 mg PO DAILY [facility] Last Admin: 12/31/21 08:07 Dose: 80 mg Documented by: Bupropion HCl (Bupropion Hcl Xl 300 Mg Tab.Er.24h) 300 mg PO DAILY [facility] Last Admin: 12/31/21 08:07 Dose: 300 mg Documented by: Calcitonin [place] (Calcitonin,[place],Synth Nasal 3.7 Ml Bottle) 1 spray NOSTRILALT BEDTIME [facility] Last Admin: 12/31/21 20:53 Dose: 1 spray Documented by: Dextrose (Dextrose 50 % 25 Gm/50 Ml Syringe) 25 gm IVPUSH Q15M PRN; Protocol PRN Reason: per Hypoglycemia Standing Ord. Docusate Sodium (Docusate Sodium 100 Mg Capsule) 100 mg PO DAILY PRN PRN Reason: Constipation Doxycycline Hyclate (Doxycycline Hyclate 100 Mg Tablet) 100 mg PO Q12H [facility] Last Admin: 12/31/21 12:43 Dose: 100 mg Documented by: Ergocalciferol (Ergocalciferol (Vitamin D2) 1,250 Mcg Capsule) 1,250 mcg PO Th@0900 [facility] Finasteride (Finasteride 5 Mg Tablet) 5 mg PO DAILY [facility] Last Admin: 12/31/21 08:06 Dose: 5 mg Documented by: Fluticasone Propionate (Fluticasone Propionate Nasal 16 Gm Traer) 1 spray NOSTRIL-B DAILY [facility] Last Admin: 12/31/21 08:15 Dose: Not Given Documented by: Gabapentin (Gabapentin 300 Mg Capsule) 900 mg PO TID [facility] Last Admin: 12/31/21 20:22 Dose: 900 mg Documented by: Glucose (Glucose Gel 15 Gm Gel..Gram.) 15 gm PO Q15M PRN; Protocol PRN Reason: per Hypoglycemia Standing Ord. Heparin Sodium (Porcine) (Heparin Sodium,Porcine 5,000 Unit/Ml Vial) 5,000 unit SUBCUT Q8H [facility] Last Admin: 12/31/21 16:48 Dose: 5,000 unit Documented by: Hydromorphone HCl (Hydromorphone Hcl 1 Mg/Ml Syringe) 0.5 mg IVPUSH Q4H PRN; Protocol PRN Reason: Pain, Severe (Pain Scale 7-10) Last Admin: 12/31/21 20:52 Dose: 0.5 mg Documented by: Dextrose/Sodium Chloride (D51/2ns) 1,000 mls @ 50 mls/hr IVCONT .Q20H [facility] Last Admin: 12/31/21 18:56 Dose: 50 mls/hr Documented by: Insulin Glargine (Insulin Glargine,Hum.Rec.Anlog 100 Unit/Ml 10 Ml Vial) 14 unit SUBCUT BEDTIME [facility] Last Admin: 12/31/21 20:23 Dose: 14 unit Documented by: Insulin Human Lispro (Insulin Lispro 100 Unit/Ml 3 Ml Vial) 0 unit SUBCUT QIDACHS [facility]; Protocol Last Admin: 12/31/21 20:24 Dose: 6 unit Documented by: Lamotrigine (Lamotrigine 100 Mg Tablet) 200 mg PO BEDTIME [facility] Last Admin: 12/31/21 20:22 Dose: 200 mg Documented by: Lisinopril (Lisinopril 5 Mg Tablet) 5 mg PO DAILY [facility]; Protocol Last Admin: 12/31/21 08:07 Dose: 5 mg Documented by: Loratadine (Loratadine 10 Mg Tablet) 10 mg PO DAILY [facility] Last Admin: 12/31/21 08:07 Dose: 10 mg Documented by: Lorazepam (Lorazepam 1 Mg Tablet) 2 mg PO TID PRN PRN Reason: Anxiety Last Admin: 12/31/21 15:34 Dose: 2 mg Documented by: Melatonin (Melatonin 3 Mg Tablet) 6 mg PO BEDTIME PRN PRN Reason: Insomnia Omeprazole (Omeprazole 20 Mg Capsule.Dr) 20 mg PO DAILY@0630 [facility] Last Admin: 12/31/21 06:09 Dose: 20 mg Documented by: Oxybutynin Chloride (Oxybutynin Chloride Er 5 Mg Tab.Er.24) 10 mg PO DAILY [facility] Last Admin: 12/31/21 08:07 Dose: 10 mg Documented by: Oxycodone HCl (Oxycodone Hcl Er 10 Mg Tab.Er.12h) 30 mg PO BID [facility] Last Admin: 12/31/21 20:22 Dose: 30 mg Documented by: Pharmacy Consult (Consult Rx Perform Med Rec) 1 each MISCELLANE ONCE PRN PRN Reason: Consult order Propranolol HCl (Propranolol Hcl La 60 Mg Cap.Sa.24h) 120 mg PO DAILY [facility]; Protocol Last Admin: 12/31/21 11:20 Dose: Not Given Documented by: Senna (Sennosides 8.6 Mg Tablet) 17.2 mg PO BEDTIME PRN PRN Reason: Constipation Sodium Chloride (0.9 % Sodium Chloride Flush 3 Ml Syringe) 3 ml IVFLUSH QSHIFT [facility] Last Admin: 12/31/21 13:10 Dose: Not Given Documented by: Zolpidem Tartrate (Zolpidem Tartrate 5 Mg Tablet) 10 mg PO BEDTIME PRN PRN Reason: Insomnia Last Admin: 12/31/21 20:52 Dose: 10 mg Documented by: Home Medications Medication Instructions Recorded Confirmed Last Taken Type amlodipine 10 mg tablet 10 mg PO DAILY 07/07/20 12/30/21 04/08/21 History aspirin 81 mg tablet,delayed 81 mg PO DAILY 07/07/20 12/30/21 04/08/21 History release bupropion HCl 300 mg 24 hr tablet, 300 mg PO DAILY 07/07/20 12/30/21 04/08/21 History extended release chlorthalidone 25 mg tablet 25 mg PO DAILY 07/07/20 12/30/21 04/08/21 History finasteride 5 mg tablet 5 mg PO DAILY 07/07/20 12/30/21 04/08/21 History insulin aspart U-100 100 unit/mL See Rx Instructions .ROUTE .COMPLEX 07/07/20 12/30/21 04/07/21 History (3 mL) subcutaneous pen (Novolog Flexpen U-100 Insulin aspart) lisinopril 5 mg tablet 5 mg PO DAILY 07/07/20 12/30/21 04/08/21 History loratadine 10 mg tablet 10 mg PO DAILY 07/07/20 12/30/21 04/08/21 History lorazepam 2 mg tablet 1 tab PO TID PRN 07/07/20 12/30/21 04/08/21 History nabumetone 500 mg tablet 500 tab PO BID 07/07/20 12/30/21 04/08/21 History nystatin 100,000 unit/gram topical 1 applic TOPICAL QID 07/07/20 12/30/21 04/08/21 History powder ([facility]) oxybutynin chloride 10 mg 10 mg PO DAILY 07/07/20 12/30/21 04/08/21 History tablet,extended release 24 hr propranolol 120 mg capsule,24 120 mg PO DAILY 07/07/20 12/30/21 04/08/21 History hr,extended release rosuvastatin 40 mg tablet 40 mg PO BEDTIME 07/07/20 12/30/21 04/07/21 History zolpidem 10 mg tablet 10 mg PO BEDTIME PRN 07/07/20 12/30/21 04/07/21 History fluticasone propionate 110 2 puff INHALATION BID 04/08/21 12/30/21 04/07/21 History mcg/actuation HFA aerosol inhaler (Flovent HFA) gabapentin 300 mg capsule 900 mg PO TID 04/08/21 12/30/21 04/08/21 History semaglutide 7 mg tablet (Rybelsus) 1 tab PO DAILY 04/08/21 12/30/21 04/08/21 History Lactobacillus rhamnosus GG 15 2 cap PO DAILY 12/30/21 12/30/21 Unknown History billion cell sprinkle capsule (Culturelle) doxycycline hyclate 100 mg capsule 1 cap PO Q12H 12/30/21 12/30/21 Unknown History ergocalciferol (vitamin D2) 1,250 50,000 unit PO QWEEK 12/30/21 12/30/21 Unknown History mcg (50,000 unit) capsule (Vitamin D2) fluticasone propionate 50 1 spray INTRANASAL DAILY 12/30/21 12/30/21 Unknown History mcg/actuation nasal spray,suspension insulin degludec 100 unit/mL (3 80 unit SUBCUT BEDTIME 12/30/21 12/30/21 Unknown History mL) subcutaneous pen (Tresiba FlexTouch U-100 insulin) lamotrigine 25 mg tablet 200 mg PO BEDTIME 12/30/21 12/30/21 Unknown History omeprazole 20 mg capsule,delayed 1 cap PO DAILY 12/30/21 12/30/21 Unknown History release oxycodone 20 mg tablet 20 mg PO Q4H PRN 12/30/21 12/30/21 Unknown History oxycodone 30 mg tablet,crush 1 tab PO BID 12/30/21 12/30/21 Unknown History resistant,extended release 12 hr (OxyContin) simethicone 125 mg chewable tablet mg PO BID PRN 12/30/21 Unknown History Physical Exam Vital Signs: Vital Signs: Last Vital Signs Temp 98.7 F 12/31/21 20:00 Pulse 77 12/31/21 20:00 Resp 19 12/31/21 20:00 BP 136/62 12/31/21 20:00 Pulse Ox 98 12/31/21 20:00 BMI result Body Mass Index 42.6 Const: General: cooperative Eyes: General: appearance normal, both eyes and all related structures Resp: Effort & Inspection: normal respiratory effort Cardio: Rate: regular rate Rhythm: regular rhythm GI: Other: soft,LLQ minor discomfort on pressure Extrem: General: Yes normal to inspection Results Labs CBC & Chem 7: 12/31/21 05:22 12/31/21 05:22 Labs: Short CBC 12/31/21 Range/Units 05:22 WBC 12.6 H (4.8-10.8) X10*3/uL Hgb 12.6 (12.0-16.0) g/dl Hct 38.0 (37.0-47.0) % Plt Count 373 (160-400) X10*3/uL BMP 12/31/21 05:22 Sodium 134 L Potassium 3.9 Chloride 99 Carbon Dioxide 24 BUN 13 Creatinine 0.93 Calcium 10.3 H D Assessment and Plan (1) Back pain: (2) Abdominal pain: No acute signs of back infection.[facility] saw patient recently Plan Hold antibiotiics Evaluate abdominal pain
[2022-01-01] VITALS: BP 118/67; PULSE 76; RESP 20; TEMP 36.2; O2SAT 97
[2022-01-01] MEDS: Heparin Sodium,Porcine 5,000 UNIT/ML VIAL 5000 UNIT SUBCUT ×4 (00:10→23:16)
[2022-01-01] MEDS: 0.9 % Sodium Chloride Flush 3 ML SYRINGE IVFLUSH ×3 (00:11→16:06)
[2022-01-01] MEDS: HYDROmorphone HCl 1 MG/ML SYRINGE 0.5 MG IVPUSH ×4 (00:58→13:46)
[2022-01-01 04:00] VITALS: BP 129/63; PULSE 77; RESP 18; TEMP 36.1; O2SAT 97
[2022-01-01] MEDS: Omeprazole 20 MG CAPSULE.DR PO (05:14)
[2022-01-01 07:14] VITALS: BP 126/67; PULSE 80; RESP 18; TEMP 36.8; O2SAT 98
[2022-01-01 07:36] LABS: Glucose, Whole Blood 220 mg/dL (60-115)
[2022-01-01] MEDS: oxyCODONE HCl ER 10 MG TAB.ER.12H 30 MG PO ×2 (08:44→22:47)
[2022-01-01] MEDS: lisinopriL 5 MG TABLET PO (08:45)
[2022-01-01] MEDS: Atorvastatin Calcium 80 MG TABLET PO (08:45)
[2022-01-01] MEDS: buPROPion HCl XL 300 MG TAB.ER.24H PO (08:45)
[2022-01-01] MEDS: Loratadine 10 MG TABLET PO (08:45)
[2022-01-01] MEDS: Aspirin Enteric Coated 81 MG TABLET.DR PO (08:45)
[2022-01-01] MEDS: Propranolol HCL LA 60 MG CAP.SA.24H 120 MG PO (08:45)
[2022-01-01] MEDS: amLODIPine Besylate 10 MG TABLET PO (08:45)
[2022-01-01] MEDS: Finasteride 5 MG TABLET PO (08:46)
[2022-01-01] MEDS: Insulin Lispro 100 UNIT/ML 3 ML VIAL SUBCUT ×3 (08:46→18:08)
[2022-01-01] MEDS: Gabapentin 300 MG CAPSULE 900 MG PO ×3 (08:46→22:47)
[2022-01-01] MEDS: Fluticasone Propionate Nasal 16 GM SPRAY 1 SPRAY NOSTRIL-B (08:49)
[2022-01-01] MEDS: LORazepam 1 MG TABLET 2 MG PO ×3 (08:59→23:25)
--- NOTE | 2022-01-01 09:44 | P.PNIM_ITS ---
Subjective Subjective Date of Service: 01/01/22 Interval History: f/u on abodminal pain, back pain interval history:She says she had a rough night due to worsening abdominal pain, no so much the back pain, reports no weakness in legs. Review of Systems no fever no focal weakness, back pain and abdominal pain Physical Exam Vital Signs: Vital Signs: Last Vital Signs Temp 98.3 F 01/01/22 07:14 Pulse 80 01/01/22 07:14 Resp 18 01/01/22 07:14 BP 126/67 01/01/22 07:14 Pulse Ox 98 01/01/22 07:14 BMI result Body Mass Index 42.6 Const: Other: General: AO X 3, no acute distress, morbidly obes Resp: CTA bilateral CVS: S1,S2,RRR GI: +BS, NT, no distention Skin: No rash Neuro: strenght in both upper and lower extremities are equal michaela--5/5, no numbness, no urinary or stool incontinence, she is moving legs without any problem Psych: flat affect Objective Data Active Medications Amlodipine Besylate (Amlodipine Besylate 10 Mg Tablet) 10 mg PO DAILY [facility]; Protocol Last Admin: 01/01/22 08:45 Dose: 10 mg Documented by: ERIKA Aspirin (Aspirin Enteric Coated 81 Mg Tablet.Dr) 81 mg PO DAILY [facility] Last Admin: 01/01/22 08:45 Dose: 81 mg Documented by: ERIKA Atorvastatin Calcium (Atorvastatin Calcium 80 Mg Tablet) 80 mg PO DAILY [facility] Last Admin: 01/01/22 08:45 Dose: 80 mg Documented by: ERIKA Bupropion HCl (Bupropion Hcl Xl 300 Mg Tab.Er.24h) 300 mg PO DAILY [facility] Last Admin: 01/01/22 08:45 Dose: 300 mg Documented by: ERIKA Calcitonin [place] (Calcitonin,[place],Synth Nasal 3.7 Ml Bottle) 1 spray NOSTRILALT BEDTIME [facility] Last Admin: 12/31/21 20:53 Dose: 1 spray Documented by: ROBBIN Dextrose (Dextrose 50 % 25 Gm/50 Ml Syringe) 25 gm IVPUSH Q15M PRN; Protocol PRN Reason: per Hypoglycemia Standing Ord. Docusate Sodium (Docusate Sodium 100 Mg Capsule) 100 mg PO DAILY PRN PRN Reason: Constipation Doxycycline Hyclate (Doxycycline Hyclate 100 Mg Tablet) 100 mg PO Q12H [facility] Last Admin: 01/01/22 00:12 Dose: 100 mg Documented by: SANDY Ergocalciferol (Ergocalciferol (Vitamin D2) 1,250 Mcg Capsule) 1,250 mcg PO Th@0900 [facility] Finasteride (Finasteride 5 Mg Tablet) 5 mg PO DAILY [facility] Last Admin: 01/01/22 08:46 Dose: 5 mg Documented by: ERIKA Fluticasone Propionate (Fluticasone Propionate Nasal 16 Gm [place]) 1 spray NOSTRIL-B DAILY [facility] Last Admin: 01/01/22 08:49 Dose: 1 spray Documented by: ERIKA Gabapentin (Gabapentin 300 Mg Capsule) 900 mg PO TID [facility] Last Admin: 01/01/22 08:46 Dose: 900 mg Documented by: ERIKA Glucose (Glucose Gel 15 Gm Gel..Gram.) 15 gm PO Q15M PRN; Protocol PRN Reason: per Hypoglycemia Standing Ord. Heparin Sodium (Porcine) (Heparin Sodium,Porcine 5,000 Unit/Ml Vial) 5,000 unit SUBCUT Q8H [facility] Last Admin: 01/01/22 08:46 Dose: 5,000 unit Documented by: ERIKA Hydromorphone HCl (Hydromorphone Hcl 1 Mg/Ml Syringe) 0.5 mg IVPUSH Q4H PRN; Protocol PRN Reason: Pain, Severe (Pain Scale 7-10) Last Admin: 01/01/22 09:00 Dose: 0.5 mg Documented by: ERIKA Dextrose/Sodium Chloride (D51/2ns) 1,000 mls @ 50 mls/hr IVCONT .Q20H [facility] Last Admin: 12/31/21 18:56 Dose: 50 mls/hr Documented by: ROBBIN Insulin Glargine (Insulin Glargine,Hum.Rec.Anlog 100 Unit/Ml 10 Ml Vial) 14 unit SUBCUT BEDTIME [facility] Last Admin: 12/31/21 20:23 Dose: 14 unit Documented by: ROBBIN Insulin Human Lispro (Insulin Lispro 100 Unit/Ml 3 Ml Vial) 0 unit SUBCUT QIDACHS [facility]; Protocol Last Admin: 01/01/22 08:46 Dose: 4 unit Documented by: ERIKA Lamotrigine (Lamotrigine 100 Mg Tablet) 200 mg PO BEDTIME [facility] Last Admin: 12/31/21 20:22 Dose: 200 mg Documented by: ROBBIN Lisinopril (Lisinopril 5 Mg Tablet) 5 mg PO DAILY [facility]; Protocol Last Admin: 01/01/22 08:45 Dose: 5 mg Documented by: ERIKA Loratadine (Loratadine 10 Mg Tablet) 10 mg PO DAILY [facility] Last Admin: 01/01/22 08:45 Dose: 10 mg Documented by: ERIKA Lorazepam (Lorazepam 1 Mg Tablet) 2 mg PO TID PRN PRN Reason: Anxiety Last Admin: 01/01/22 08:59 Dose: 2 mg Documented by: ERIKA Melatonin (Melatonin 3 Mg Tablet) 6 mg PO BEDTIME PRN PRN Reason: Insomnia Omeprazole (Omeprazole 20 Mg Capsule.Dr) 20 mg PO DAILY@0630 [facility] Last Admin: 01/01/22 05:14 Dose: 20 mg Documented by: SANDY Oxybutynin Chloride (Oxybutynin Chloride Er 5 Mg Tab.Er.24) 10 mg PO DAILY [facility] Last Admin: 01/01/22 08:45 Dose: 10 mg Documented by: ERIKA Oxycodone HCl (Oxycodone Hcl Er 10 Mg Tab.Er.12h) 30 mg PO BID [facility] Last Admin: 01/01/22 08:44 Dose: 30 mg Documented by: ERIKA Pharmacy Consult (Consult Rx Perform Med Rec) 1 each MISCELLANE ONCE PRN PRN Reason: Consult order Propranolol HCl (Propranolol Hcl La 60 Mg Cap.Sa.24h) 120 mg PO DAILY [facility]; Pro tocol Last Admin: 01/01/22 08:45 Dose: 120 mg Documented by: ERIKA Senna (Sennosides 8.6 Mg Tablet) 17.2 mg PO BEDTIME PRN PRN Reason: Constipation Sodium Chloride (0.9 % Sodium Chloride Flush 3 Ml Syringe) 3 ml IVFLUSH QSHIFT [facility] Last Admin: 01/01/22 08:48 Dose: 3 ml Documented by: ERIKA Zolpidem Tartrate (Zolpidem Tartrate 5 Mg Tablet) 10 mg PO BEDTIME PRN PRN Reason: Insomnia Last Admin: 12/31/21 20:52 Dose: 10 mg Documented by: ROBBIN Labs CBC & Chem 7: 12/31/21 05:22 12/31/21 05:22 Labs: Laboratory Results - last 24 hr 12/31/21 12/31/21 12/31/21 13:02 15:24 19:49 POC Glucose 218 H 156 H 256 H 01/01/22 07:23 POC Glucose 220 H Assessment and Plan (1) Back pain: Status: Acute (2) Abdominal pain: Status: Acute (3) Lower back pain: Status: Acute (4) Urinary incontinence: Status: Acute (5) Hypercalcemia: Status: Acute Plan 51-year-old female with a past medical history of anxiety, depression, borderline personality disorder, chronic back pain, CKD, hypertension, hyperlipidemia, diabetes, obesity; history of diskitis/osteomyelitis of the spine; presented to the hospital today with a chief complaint of abdominal pain/nausea/vomiting/diarrhea.? Abdominal pain:? CT abdomen showed no acute intra-abdominal process. ? Will obtain stool studies including C diff. supportive care Back pain: Patient has prior history of diskitis/osteomyelitis of the spine.? On exam patient had decreased rectal tone as per the ER team.? No saddle anesthesia.? Sensations a: Bilateral lower extremities.? Strength is 5/5 in bilateral lower extremities. CT scan showed?mild loss of disc space of L2-L3, L3-L4, L4-L5; Diffuse disc bulges at L2-L3, L3-L4; central disc protrusion of L4-L5, L5-S1; mild bilateral foraminal narrowing L2-L3, L3-L4, L4-L5, L5-S1.; mild facet arthropathy throughout the lumbar spine ESR is 67 and CRP is 2.8, there is no fever.. Cutlures pending Patient is currently afebrile, no leukocytosis.? Will hold of antibiotics until MRI MRI of the back is requested including lumbar and thoracic spine---she will only do MRI under anesthesia.--lot of technical difficulty to get thid done here, attempted to transfer to [facility] and they are not taking transfers. Neuro recommends throacic MRI--may need to be done at later time. At last minute yesterday, anesthesia willing to help do MRI but reportedly she's over weight limit so it was cancelled. She is showing no sings of infection and no neuro changes. Seen by ID, no Abx at this time. Will get GI to see her for abdominal pain and get thoracic spine CT in lieu of MRI Hypercalcemia:? Patient noted to have calcium level of 12.8 on presentation.? Had normal calcium levels at [facility].? Continue IV fluids. Patient reports that she has been taking vitamin-D supplementation for long time.? Recommended to hold vitamin-D supplementation for few weeks. History of diabetes:? Will reduce the home insulin regimen-Tresiba to 40 units for now.? Insulin sliding scale.? Monitor fingerstick glucose. For all other chronic conditions, home medications will be continued Psyhc; multiple Psych issues, and reported have made suicide threat.. so has sitter right now DVT prophylaxis:? Subcu heparin Code status: Full code Quality Stroke Does the patient have a stroke diagnosis?: No VTE Prior VTE?: No VTE Risk Level:: Medical - moderate - high VTE Device Contraindication: Treatment Not Indicated VTE Drug Contraindication: N/A - Med Ordered
[2022-01-01 11:17] VITALS: BP 128/63; PULSE 75; RESP 19; TEMP 37.1; O2SAT 97
[2022-01-01 11:36] LABS: Glucose, Whole Blood 216 mg/dL (60-115)
[2022-01-01] MEDS: Dextrose 5 % and 0.45 % NaCl 1,000 ML 50 ML IVCONT (13:49)
--- NOTE | 2022-01-01 16:22 | P.EN_ITS ---
Event Note Date of Service: 01/01/22 Event Note: GI-Consult Dictated-Hx via patient, RN, and EMR. Imp: 51 yo female with left-sided abdominal pain of unclear etiology. She was just discharged from [facility] after a hospitalization for abdominal and back pain with a ? of sepsis. She received some broad spectrum antibiotics although without any definitive infection documented. According to [facility] records she has a long history of multiple admissions to [facility] for similar issues and is on chronic pain medications at home. However, she reports to me that her abdominal pain is a brand new problem for her. She describes some N/V/diarrhea but without any bleeding nor jaundice. She denies any vomiting nor diarrhea today and is tolerating full liquids. She appears comfortable and has been afebrile. Her abdominal exam does have some diffuse left-sided tenderness, but there are good BS and the abdomen is soft, nondistended, and without rebound/guarding or mass. Her CT scan does not show any intraabdominal findings, although it was done without oral contrast. Her labs show a somewhat elevated CRP and ESR, as well as a chronic mild elevation of her Alk phos but with normal LFT's otherwise. Overall, I don't have a definitive explanation of her abdominal pain. Her exam is fairly unremarkable and the workup does not show any definitive etiology. Differential diagnosis include IBS along with the component of her chronic back pain with longstanding use of narcotics playing a role in her complaints. Less likely possibilities would be diverticulitis, infectious colitis, PUD. Rec: Advance diet as tolerated. Check stools to R/O infection including C.diff and culture. Trial of an antispasmodic such as dicyclomine, although need to be cautious with apparent history of urinary retention. If she continues to have significant problems I would recommend a repeat Abd/Pelvic CT with po contrast for better evaluation of the GI tract. I don't think an upper endoscopy or colonoscopy would be of much help at this time. D/W patient in detail and she seems comfortable with this plan. D/W Dr. Woods. Thanks
[2022-01-01 16:33] LABS: Glucose, Whole Blood 230 mg/dL (60-115)
[2022-01-01] MEDS: oxyCODONE HCl Immed Release 5 MG TABLET 20 MG PO ×2 (18:08→23:19)
--- NOTE | 2022-01-01 18:40 | MHC.CARE ---
CARE Team meets with pt at the request for a consult from Dr. Woods.? Pt is not medically cleared but wants to go home AMA.? This request came after pt was advised by Dr Woods that he is discontinuing her pain medications. Pt was placed on a section 12 by ED provider after making a statement regarding going home and overdosing on her medications if she doesn?t get pain meds at her request in the ED.? Pt was subsequently transferred to [facility]. Pt denied AVH, SI, HI, , and self-harm urges.? She does not appear to be delusional or experiencing symptoms of psychosis.? She reports a remote hx of Si after the of her father which she reports was 10 + years ago.? She reports being concerned with the way she was feeling so she sought help and went in patient for approximately 2 weeks.? She stated that she has a prescriber and a therapist who she sees regularly.? She reports being compliant with her medications. CARE Team contacted her son and MATH INTERVENTIONIST Rodrick.? He reports that pt does at times make statements regarding and dying but he believes this is in the context of her medical issues.? He stated that she does not care for herself as she should and as a result she is unwell and has complications with her diabetes.? He reports spending the majority of every day with her, ?even when I?m not on the clock I?m on the clock.?? He reports that she does not exhibit intent when making these statements.? He believes she is able to be safe at home. CARE Team attempted to make contact with her but he did not answer his phone and the mailbox was not set up for a voice mail. CARE Team conducted safety planning with pt as follows: ? Pt will contact crisis if she experiences intrusive thoughts of self-harm, , dying or SI.? Pt stated she has the numbers for crisis available at home. ? Pt will advise her MATH INTERVENTIONIST (Rodrick) or other family member is she begins to feel unsafe. ? Pt identifies her therapist as a good support for her; she will contact her therapist (Sarahi Tolliver)if she begins to feel unsafe. ? Pt identified television/movies as a means of relaxation for her, she will continue to practice this. ? Pt will continue to take her medications as prescribed. ? CARE Team will follow up tomorrow afternoon with a phone call to check in. Pt does not appear to be at risk at this time.? This was discussed with CARE Harnessmaker Heather Raphael, Nursing Internist Giorgi, and Dr. Woods.
--- NOTE | 2022-01-01 19:32 | PC.NURSE ---
The sitter outside room 462 overheard her talking about having a razor in her purse and that she would use it to cut herself. The pt had a sitter because of SI. In the afternoon she wanted to leave AMA; doctor and CARE team said she could leave, but she said that it was too late for her to get a ride. When I found out that she the razor I called the nurse ward service supervisor. I asked the pt if she was leaving AMA. When she said no I told her that patients couldn't have razors from home. She took it out of her purse and broke it in half. I asked if she had anything else--she removed the contents of the purse and had a electric appliance installer which I also took. Both are in the patient specific bin.
[2022-01-01 20:04] VITALS: BP 123/77; PULSE 69; RESP 18; TEMP 36.6; O2SAT 99
--- NOTE | 2022-01-01 20:04 | PC.NURSE ---
Came on shift for report about 1899, was told this patient was threatening to cut her wrist with a razor by sitter (name unkown to this nurse). Was told in report that patient had stated she had not suicidal ideation but was trying to cut herself with a razor. Patient asked this nurse if she needed a sitter, as she felt it was not necessary. I asked if she had threatened to harm herself and patient became upset, denies making such a statement and threatens to leave AMA. Patient ranted for about 10 minutes insisting she wants to speak to a spinning and winding supervisor. Informed her this nurse would contact [employer]. Called spinning and winding supervisor Jimena WILKES who states patient was section 12 for threats to go home and overdose on oxycodone but she was evaluated by psychiatry and was cleared from Suicide watch. Patient is clear to go home AMA if she chooses. Informed her patient states she was willing to have CT scan as she has no transportation to go home tonight. Jimena WILKES stated patient can be transported to CT scan by [employer].
[2022-01-01] MEDS: lamoTRIgine 100 MG TABLET 200 MG PO (22:48)
[2022-01-01] MEDS: Insulin Glargine,Hum.rec.anlog 100 UNIT/ML 10 ML VIAL 14 UNIT SUBCUT (22:51)
[2022-01-01 22:59] LABS: Glucose, Whole Blood 195 mg/dL (60-115)
[2022-01-01] MEDS: Zolpidem Tartrate 5 MG TABLET 10 MG PO (23:19)
[2022-01-01 23:26] VITALS: BP 123/59; PULSE 64; RESP 20; TEMP 36.8; O2SAT 97
--- NOTE | 2022-01-02 01:52 | CONS_ITS ---
DATE OF SERVICE: 01/01/2022 REASON FOR CONSULTATION: Abdominal pain. HISTORY OF PRESENT ILLNESS: History has been obtained from the patient, the medical record, and her nurse. The patient is a 51-year-old female with multiple medical problems including chronic back pain. She apparently had just been discharged from [facility] after a hospitalization for chronic back pain, abdominal pain, and question of sepsis. She was treated with about 48 hours of some broad-spectrum antibiotics, but no definitive infection was found, and she was subsequently discharged on some oral doxycycline. She came here the very following day after discharge due to reported new onset of abdominal pain. However, in reviewing her [facility] record, she has had numerous admissions for abdominal pain. She reports to me that this is new for her, however. She describes the pain as somewhat diffuse on the left side of the abdomen with some nausea, vomiting, diarrhea. Today, she has had no vomiting, nor diarrhea. She did not notice any signs of hematemesis, coffee-grounds emesis, melena, nor hematochezia. She denies any jaundice. She has been afebrile since admission here. She denies any hematuria nor dysuria, but apparently has had some trouble voiding urine and has had a Julien catheter in since admission. The patient does have some history of reflux, but denies any history of ulcer disease. She denies any dysphagia. She denies any known family history of GI malignancy, inflammatory bowel disease, nor peptic ulcer disease. She is on chronic pain medication at home. Again, according to [facility] records, she apparently does have a history of some pain medication dependence and some reported drug-seeking behavior according to their records. Her recent admission at [facility] had included a CT scan of the abdomen and lab work. She reports that she has never had an upper endoscopy, nor colonoscopy. MEDICATIONS AT HOME: Amlodipine, aspirin, bupropion, chlorthalidone, doxycycline, vitamin D, finasteride, gabapentin, insulin, Lamictal, lisinopril, loratadine, lorazepam, nabumetone, omeprazole, oxybutynin, oxycodone, propranolol, rosuvastatin, Rybelsus, and Ambien. MEDICATIONS HERE IN THE HOSPITAL: Amlodipine, aspirin, atorvastatin, bupropion, Colace, vitamin D, finasteride, fluticasone nasal spray, gabapentin, subcu heparin, insulin, Lamictal, lisinopril, loratadine, melatonin, nicotine patch, omeprazole, oxybutynin, oxycodone, propranolol, Senokot, and Ambien. PAST MEDICAL HISTORY: She describes surgeries for appendectomy, left salpingo-oophorectomy, and some type of neurosurgery for repair of a CSF leak done in [place]. Multiple medical problems including morbid obesity, hypertension, hyperlipidemia, anxiety, insulin-dependent diabetes mellitus, chronic back and abdominal pain, bipolar disease, sleep apnea although she does not use the CPAP because she cannot tolerate it by her report, and urinary incontinence. She denies any history of NC nor CVA. SOCIAL HISTORY: She lives with a significant other. She does smoke. She does not use any alcohol. FAMILY HISTORY: Noncontributory. REVIEW OF SYSTEMS: CONSTITUTIONAL: She has been feeling poorly in general due to multiple pains in her back and abdomen. SKIN: She denies any recent rash. No pruritus. CARDIAC: She denies any chest pain. PULMONARY: She denies any coughing or hemoptysis. GI: As above. PHYSICAL EXAMINATION: GENERAL: The patient is a pleasant, alert, comfortable-appearing female, lying in bed. SKIN: Warm and dry. Nonjaundiced. Anicteric sclerae. ABDOMEN: Soft. Normal bowel sounds. Nondistended. There is some mild diffuse tenderness along the left side of the abdomen, but without mass, rebound, or guarding. LABORATORY DATA: White blood cell count yesterday was 13.0 and today is 12.6, hemoglobin 12.6, platelets here 173,000. Sedimentation rate is 67, alkaline phosphatase 208, total bilirubin 0.5, AST 12, ALT 27, albumin 4.6. C-reactive protein is 2.6. She had a CT scan of the abdomen without oral contrast, which was negative for any sign of any etiologies of her abdominal pain and was otherwise unremarkable in general. IMPRESSION: Given the patient's long-standing history as documented by reports from [facility] and her current workup, I do not have a definitive explanation for her left-sided abdominal pain. Her abdominal exam does not seem particularly worrisome at all at this time. She claims that her abdominal complaints are new for her but again, according to the [facility] records, this has been a longstanding problem for her. She may very well have a component of some irritable bowel syndrome and pain on that basis, that is also complicated by her longstanding back pain and use of pain medication at home. I think less likely possibilities would be diverticulitis, infectious colitis, or peptic ulcer disease. At this point, I think her diet can be advanced as tolerated. I would check stools for any type of infection given her reported diarrhea and recent treatment with antibiotics, including C difficile and culture. I would consider adding an antispasmodic such as dicyclomine if her symptoms persist, although given the reported recent urinary retention, this will need to be done cautiously. If she does continue to have significant problems with abdominal complaints, I would recommend a repeat abdominal and pelvic CT scan with oral contrast for better evaluation of the GI tract. I do not think the chronic elevation of the alkaline phosphatase is significant as I suspect that is probably more related to her chronic musculoskeletal complaints and back issues. This has all been discussed with the patient in detail. MD MARIA ISABEL Penny/SARTHAK / [id number] MTDBam
[2022-01-02 04:00] VITALS: BP 115/57; PULSE 69; RESP 20; TEMP 36.3; O2SAT 97
[2022-01-02] MEDS: Omeprazole 20 MG CAPSULE.DR PO (04:10)
[2022-01-02] MEDS: oxyCODONE HCl Immed Release 5 MG TABLET 20 MG PO ×3 (04:10→12:12)
[2022-01-02 07:25] VITALS: BP 127/63; PULSE 70; RESP 20; TEMP 36.4; O2SAT 99
[2022-01-02 07:37] LABS: Glucose, Whole Blood 220 mg/dL (60-115)
[2022-01-02] MEDS: buPROPion HCl XL 300 MG TAB.ER.24H PO (08:03)
[2022-01-02] MEDS: Atorvastatin Calcium 80 MG TABLET PO (08:03)
[2022-01-02] MEDS: Insulin Lispro 100 UNIT/ML 3 ML VIAL SUBCUT ×2 (08:03→12:13)
[2022-01-02] MEDS: Loratadine 10 MG TABLET PO (08:04)
[2022-01-02] MEDS: oxyCODONE HCl ER 10 MG TAB.ER.12H 30 MG PO (08:04)
[2022-01-02] MEDS: lisinopriL 5 MG TABLET PO (08:04)
[2022-01-02] MEDS: Propranolol HCL LA 60 MG CAP.SA.24H 120 MG PO (08:04)
[2022-01-02] MEDS: Aspirin Enteric Coated 81 MG TABLET.DR PO (08:04)
[2022-01-02] MEDS: LORazepam 1 MG TABLET 2 MG PO (08:04)
[2022-01-02] MEDS: Gabapentin 300 MG CAPSULE 900 MG PO (08:05)
[2022-01-02] MEDS: amLODIPine Besylate 10 MG TABLET PO (08:05)
[2022-01-02] MEDS: Finasteride 5 MG TABLET PO (08:05)
[2022-01-02] MEDS: Heparin Sodium,Porcine 5,000 UNIT/ML VIAL 5000 UNIT SUBCUT (08:05)
[2022-01-02] MEDS: Fluticasone Propionate Nasal 16 GM SPRAY 1 SPRAY NOSTRIL-B (08:07)
--- NOTE | 2022-01-02 09:38 | PM.DS ---
DS: Providers Provider Date of Service: 01/02/22 Date of admission: 12/30/21 23:17 Primary care physician: Unknown Physician Consults: 12/30/21 23:37 Consult to Psychiatry Routine Consulting Provider: Psych Covering Reason for consultation: SI 12/30/21 23:48 Consult to Neurology Routine Consulting Provider: [facility] Reason for consultation: back pain/ decreased rectal tone 12/31/21 13:24 Consult to Infectious Diseases Routine Consulting Provider: Bouchra Rebolledo Reason for consultation: Back pain history of back infection, sould she be on antibiotics Has provider been notified: No 01/01/22 09:42 Consult to Gastroenterology Routine Consulting Provider: Kalpesh Spaulding Reason for consultation: Unexplained abdominal pain Has provider been notified: No DS: Diagnosis Discharge Diagnosis (1) Back pain: Status: Acute (2) Abdominal pain: Status: Acute (3) Lower back pain: Status: Acute (4) Urinary incontinence: Status: Acute (5) Hypercalcemia: Status: Acute DS: Summary Hospital Course Hospital Course: 51-year-old female with a past medical history of anxiety, depression, borderline personality disorder, chronic back pain, CKD, hypertension, hyperlipidemia, diabetes, obesity; history of diskitis/osteomyelitis of the spine; presented to the hospital today with a chief complaint of abdominal pain/nausea/vomiting/diarrhea.? Abdominal pain:? CT abdomen showed no acute intra-abdominal process. ? Will obtain stool studies including C diff. supportive care Back pain: Patient has prior history of diskitis/osteomyelitis of the spine.? On exam patient had decreased rectal tone as per the ER team.? No saddle anesthesia.? Sensations a: Bilateral lower extremities.? Strength is 5/5 in bilateral lower extremities. CT scan showed?mild loss of disc space of L2-L3, L3-L4, L4-L5; Diffuse disc bulges at L2-L3, L3-L4; central disc protrusion of L4-L5, L5-S1; mild bilateral foraminal narrowing L2-L3, L3-L4, L4-L5, L5-S1.; mild facet arthropathy throughout the lumbar spine ESR? is 67 and CRP is 2.8, there is no fever.. Cutlures pending Patient is currently afebrile, no leukocytosis.? Will hold of antibiotics until MRI MRI of the back is requested including lumbar and thoracic spine---she will only do MRI under anesthesia.--lot of technical difficulty to get thid done here, attempted to transfer to [facility] and they are not? taking transfers.? Neuro recommends throacic MRI--may need to be done at later time. At last minute yesterday, anesthesia willing to help do MRI but reportedly she's over weight limit so it was cancelled. She is showing no sings of infection and no neuro changes. Seen by ID, no Abx at this time.? Will get GI to see her for abdominal pain and get thoracic spine CT in lieu of MRI Hypercalcemia:? Patient noted to have calcium level of 12.8 on presentation.? Had normal calcium levels at [facility].? Continue IV fluids. Patient reports that she has been taking vitamin-D supplementation for long time.? Recommended to hold vitamin-D supplementation for few weeks. History of diabetes:? Will reduce the home insulin regimen-Tresiba to 40 units for now.? Insulin sliding scale.? Monitor fingerstick glucose. For all other chronic conditions, home medications will be continued Psyhc; multiple Psych issues, and reported have made suicide threat.. so has sitter right now. Hospital course: Patient presented with abdominal pain and some back pain although she later stated that abdominal pain was her main concer. She had been discharged from [facility] just one day earlier for similar presentation and in indeed many other occasional for pain related issues. She does have history of osteomylitis of the back but on this occassion with no clinical evidence of such on CT was unable to do MRI due to severe claustrophobia and overweight limit.. Blood cultures have been negative today. She has no fever or chills, normal WBC. Infectious disease recommends no antibitoics at this time. She also said she some pain at upper back was seen by Neurology and recommended throcid spine MRI which again cannot be done as stated so a CT is done instead. At this point she satates that her pain is at baseline. At baseline this patient is practically bed boudn with little movment which has not changed. She will continue her usual pain medications and to follow up with PCP and Pain clinic. She was evaluated by Crisis and deemed not risk for self harm. She denies suicide ideation at this time Time Spent with Patient Time attestation: Total time spent providing and/or coordinating discharge services: Discharge coordination time: Greater than 30 minutes Quality: Safe Use of Opioids Does Pt have an Active Cancer Diagnosis on the Problem List?: No Quality: Stroke Does the patient have a stroke diagnosis?: No Physical Exam Vital Signs: Vital Signs: Last Vital Signs Temp 97.6 F 01/02/22 07:25 Pulse 70 01/02/22 07:25 Resp 20 01/02/22 07:25 BP 127/63 01/02/22 07:25 Pulse Ox 99 01/02/22 07:25 BMI result Body Mass Index 42.6 DS: Data Data Completed and Pending Labs on day of discharge: Laboratory Results - last 24 hr 01/01/22 01/01/22 01/01/22 11:11 16:29 22:53 POC Glucose 216 H 230 H 195 H 01/02/22 07:24 POC Glucose 220 H Discharge Plan Discharge Anticipated Discharge Date/Time: 01/02/22 09:35 Patient Disposition: Home, Self-Care Discharge Diagnosis: chronic back pain and chronic abdominal pain Referrals: PhysicianNohemi [Primary Care Provider] - 1 Week Discharge Medications: Continued nystatin [Nyamyc] 100,000 unit/gram powder 1 applic topical QID 0RF insulin aspart U-100 [Novolog Flexpen U-100 Insulin] 100 unit/mL (3 mL) insulin pen See Rx Instructions unit .ROUTE .COMPLEX 0RF Protocol: Insulin Correction Scale Less than or equal to 110 ---- Give (units): 0 111 to 150 Give (units): 0 151 to 200 Give (units): 2 201 to 250 Give (units): 4 251 to 300 Give (units): 6 301 to 350 Give (units): 8 Greater than 350 Give (units): 10 Call MD if Blood Glucose > : 350 Rx Instructions: Patient did not know her scale other than the fact that it changed recently oxybutynin chloride 10 mg tablet extended release 24hr 10 mg PO DAILY 0RF chlorthalidone 25 mg tablet 25 mg PO DAILY 0RF aspirin 81 mg tablet,delayed release (DR/EC) 81 mg PO DAILY 0RF lorazepam 2 mg tablet 1 tab PO TID PRN (Reason: Anxiety) 0RF amlodipine 10 mg tablet 10 mg PO DAILY 0RF lisinopril 5 mg tablet 5 mg PO DAILY 0RF propranolol 120 mg capsule,extended release 24 hr 120 mg PO DAILY 0RF zolpidem 10 mg tablet 10 mg PO BEDTIME PRN (Reason: Insomnia) 0RF finasteride 5 mg tablet 5 mg PO DAILY 0RF loratadine 10 mg tablet 10 mg PO DAILY 0RF nabumetone 500 mg tablet 500 tab PO BID 0RF rosuvastatin 40 mg tablet 40 mg PO BEDTIME 0RF bupropion HCl 300 mg tablet extended release 24 hr 300 mg PO DAILY 0RF gabapentin 300 mg capsule 900 mg PO TID 0RF Rybelsus 7 mg tablet 1 tab PO DAILY 0RF Flovent HFA 110 mcg/actuation HFA aerosol inhaler 2 puff inhalation BID 0RF doxycycline hyclate 100 mg capsule 1 cap PO Q12H 0RF lamotrigine 25 mg tablet 200 mg PO BEDTIME 0RF omeprazole 20 mg capsule,delayed release(DR/EC) 1 cap PO DAILY 0RF simethicone 125 mg tablet,chewable PO BID PRN (Reason: Gastric Reflux) 0RF ergocalciferol (vitamin D2) [Vitamin D2] 1,250 mcg (50,000 unit) capsule 50,000 unit PO QWEEK 0RF fluticasone propionate 50 mcg/actuation spray,suspension 1 spray intranasal DAILY 0RF oxycodone 20 mg tablet 20 mg PO Q4H PRN (Reason: Pain) 0RF Culturelle 15 billion cell capsule, sprinkle 2 cap PO DAILY 0RF Tresiba FlexTouch U-100 100 unit/mL (3 mL) insulin pen 80 unit subcut BEDTIME 0RF oxycodone [OxyContin] 30 mg tablet,oral only,ext.rel.12 hr 1 tab PO BID 0RF Diet: advance to usual diet and diabetic diet Activity on Discharge: As tolerated Stand Alone Forms: Patient Portal Discharge page Care Plan Goals: Pain controll for chronic back pain and chronic abdominal pain Health Concerns: Chronic pain issues Plan of Treatment: Continue all your medication and pain medications and follow up with your docotor and pain clinic [place] week Assessment: as above
[2022-01-02 10:59] VITALS: BP 123/56; PULSE 70; RESP 20; TEMP 36.4; O2SAT 98
[2022-01-02 11:08] LABS: Glucose, Whole Blood 168 mg/dL (60-115)
--- NOTE | 2022-01-02 12:10 | MHC.CM.PN ---
pt dcd home no skilled servceis ordered by
--- NOTE | 2022-01-04 09:40 | MHC.CARE ---
CARE Team post graduate intern conducted a follow-up call with pt to check in. Pt reported that she was doing okay and was still struggling with pain and medical concerns, but felt safe and able to access her supports. Pt did not report suicidal ideation and stated it's hard, but I can deal with it. Pt stated that her son has been helping her and her only concern was regarding medication she needed to call into the pharmacy. Pt planned to reach out to her provider today to request her medication refill. No other concerns were expressed.
== END 2022-01-02 13:14 | disposition home or self-care (01) | DRG 552 ==
LOC: HO.ED 23:18 → HO.EDOVER 23:52 → HO.IMC 12-31 13:55
PROVIDERS: Admitting Provider Hospitalist; Emergency Provider Emergency Medicine; Visit Provider Internal Medicine
DX: M54.59 Other low back pain (principal); Z68.41 Body mass index [BMI] 40.0-44.9, adult; R10.9 Unspecified abdominal pain; G89.29 Other chronic pain; E83.52 Hypercalcemia; E11.9 Type 2 diabetes mellitus without complications; F41.9 Anxiety disorder, unspecified; R32 Unspecified urinary incontinence; F60.3 Borderline personality disorder; E66.9 Obesity, unspecified; E83.51 Hypocalcemia; Z20.822 Contact with and (suspected) exposure to COVID-19; Z88.6 Allergy status to analgesic agent; Z88.8 Allergy status to other drugs, medicaments and biological substances; Z79.4 Long term (current) use of insulin; Z79.51 Long term (current) use of inhaled steroids; Z79.82 Long term (current) use of aspirin; Z79.899 Other long term (current) drug therapy
CPT/HCPCS: 36415; 72128; 74177; 80048; 80076; 81001; 82947; 84484; 85025; 85652; 86140; 87635; 93005; 96361; 96374; 96375; 96376; 97161; 99285; 99291; C1758; J1170; J1885; J2270; Q9967

== ENCOUNTER 2022-02-14 18:11 | Emergency (ER) | payer OTHER, SELFPAY ==
--- NOTE | ~2022-02-14 | XR_ITS ---
EXAMINATION: XR CHEST CLINICAL INFORMATION: Chest pain COMPARISON: 01/29/2020 TECHNIQUE: Frontal view of the chest was obtained. FINDINGS: No significant abnormality is noted involving the heart, lungs, mediastinum, bony thorax or soft tissues. XR/XR chest 1V IMPRESSION: Unremarkable examination.
--- NOTE | 2022-02-14 18:12 | ED_ITS ---
HPI - Abdominal Pain General Chief Complaint: Abdominal Pain Stated Complaint: abd pain, vomiting, chills, headache, chest tight Time Seen by Provider: 02/14/22 18:12 Source: patient and EMS Mode of arrival: EMS Limitations: no limitations History of Present Illness HPI narrative: 51 y/o female with history of chronic pain on chronic opiates, CKD, morbid obesity, HTN, DM, depression, chronic back pain, borderline personality disorder, asthma, anxiety, history of discitis/spinal osteomyelitis who presents to the ER via EMS from home reporting acute onset of upper abdominal pain and vomiting that started yesterday. She says the pain in her epigastric area prevented her eating anything at all yesterday. She developed vomiting, headache, chills, and chest tightness today. She arrives to the ER in extreme distress, yelling out in pain, dry heaving. She will not answer any questions because she is in too much pain. She reports it is only in her epigastric area. She received IM Zofran from EMS en route. MD elicited complaint: abdominal pain Onset (ago): day(s) (1) Pain Consistency: constant Location: epigastric Severity: severe Quality: stabbing Radiation: none Migration to: no migration Exacerbating factors: nothing Relieving factors: nothing Context: history of similar episodes Associated symptoms: nausea and vomiting Related Data Home Medications Medication Instructions Recorded Confirmed amlodipine 10 mg tablet 10 mg PO DAILY 07/07/20 12/30/21 aspirin 81 mg tablet,delayed 81 mg PO DAILY 07/07/20 12/30/21 release bupropion HCl 300 mg 24 hr tablet, 300 mg PO DAILY 07/07/20 12/30/21 extended release chlorthalidone 25 mg tablet 25 mg PO DAILY 07/07/20 12/30/21 finasteride 5 mg tablet 5 mg PO DAILY 07/07/20 12/30/21 insulin aspart U-100 100 unit/mL See Rx Instructions .ROUTE .COMPLEX 07/07/20 12/30/21 (3 mL) subcutaneous pen (Novolog Flexpen U-100 Insulin aspart) lisinopril 5 mg tablet 5 mg PO DAILY 07/07/20 12/30/21 loratadine 10 mg tablet 10 mg PO DAILY 07/07/20 12/30/21 lorazepam 2 mg tablet 1 tab PO TID PRN 07/07/20 12/30/21 nabumetone 500 mg tablet 500 tab PO BID 07/07/20 12/30/21 nystatin 100,000 unit/gram topical 1 applic TOPICAL QID 07/07/20 12/30/21 powder (Nyamyc) oxybutynin chloride 10 mg 10 mg PO DAILY 07/07/20 12/30/21 tablet,extended release 24 hr propranolol 120 mg capsule,24 120 mg PO DAILY 07/07/20 12/30/21 hr,extended release rosuvastatin 40 mg tablet 40 mg PO BEDTIME 07/07/20 12/30/21 zolpidem 10 mg tablet 10 mg PO BEDTIME PRN 07/07/20 12/30/21 fluticasone propionate 110 2 puff INHALATION BID 04/08/21 12/30/21 mcg/actuation HFA aerosol inhaler (Flovent HFA) gabapentin 300 mg capsule 900 mg PO TID 04/08/21 12/30/21 semaglutide 7 mg tablet (Rybelsus) 1 tab PO DAILY 04/08/21 12/30/21 Lactobacillus rhamnosus GG 15 2 cap PO DAILY 12/30/21 12/30/21 billion cell sprinkle capsule (Culturelle) doxycycline hyclate 100 mg capsule 1 cap PO Q12H 12/30/21 12/30/21 ergocalciferol (vitamin D2) 1,250 50,000 unit PO QWEEK 12/30/21 12/30/21 mcg (50,000 unit) capsule (Vitamin D2) fluticasone propionate 50 1 spray INTRANASAL DAILY 12/30/21 12/30/21 mcg/actuation nasal spray,suspension insulin degludec 100 unit/mL (3 80 unit SUBCUT BEDTIME 12/30/21 12/30/21 mL) subcutaneous pen (Tresiba FlexTouch U-100 insulin) lamotrigine 25 mg tablet 200 mg PO BEDTIME 12/30/21 12/30/21 omeprazole 20 mg capsule,delayed 1 cap PO DAILY 12/30/21 12/30/21 release oxycodone 20 mg tablet 20 mg PO Q4H PRN 12/30/21 12/30/21 oxycodone 30 mg tablet,crush 1 tab PO BID 12/30/21 12/30/21 resistant,extended release 12 hr (OxyContin) simethicone 125 mg chewable tablet mg PO BID PRN 12/30/21 Previous Rx's Medication Instructions Recorded metoclopramide HCl 10 mg tablet 10 mg PO Q6H PRN #10 tab 02/14/22 (Reglan) ondansetron 4 mg disintegrating 4 mg PO Q8H PRN #7 tab 02/14/22 tablet Allergies Allergy/AdvReac Type Severity Reaction Status Date / Time metformin Allergy Severe Unknown Verified 07/07/20 08:27 acetaminophen [From TYLENOL] Allergy Unknown HIVES Verified 07/07/20 08:27 clonazepam [From KLONOPIN] Allergy Unknown HIVES Verified 07/07/20 08:27 Review of Systems Review of Systems Constitutional: No Fever, + Chills ENT/Mouth: No sore throat, No Rhinorrhea, No Swallowing Difficulty Eyes: No Eye Pain, No Swelling, No Redness Cardiovascular: + Chest Pain, + SOB, No Orthopnea, No Edema Respiratory: No Cough, No Sputum, No Wheezing, No dyspnea Gastrointestinal: + Nausea, + Vomiting, No Diarrhea, + abdominal Pain, No Hematochezia, No Melena Genitourinary: No Dysuria, No Urinary Frequency, No Hematuria Musculoskeletal: No joint pain, No Myalgias Skin: No Skin Lesions, No rash Neuro: No Weakness, No Numbness, No Dizziness, + Headache Psych: No Anxiety/Panic, No Depression Heme/Lymph: No Bruising, No Lymphadenopathy Endocrine: No Polyuria, No Polydipsia PMFSH Past Medical History Medical History Agoraphobia Anxiety Asthma Borderline personality disorder Chronic back pain Chronic kidney disease Depression Diabetes Hypertension Obesity Surgical History H/O oophorectomy History of appendectomy Social History Social History Household Members: Caregiver Housing: Apartment Do you presently have visiting nurse or other home services: Yes Patient Tobacco Use Status: Tobacco use Unknown Tobacco use type: Cigarette Cigarette Packs Per Day: 1 Cigarettes Per Day: 20.0 Advance Directives: No Advance Directives Information Provided: No service: No Current occupational status: disabled Physical Exam ED Vital Signs: Vital Signs - 24 hr 02/14/22 18:19 02/14/22 20:06 02/14/22 22:54 Temperature 99.4 F 98.8 F Pulse Rate 117 H 106 H Respiratory Rate 22 H 20 18 Blood Pressure 148/97 H 155/86 H Pulse Oximetry 98 97 BMI result Body Mass Index 44.6 Appearance: Alert. Oriented X3. Home wearing out and pain on the stretcher, hyperventilating. Eyes: Pupils equal, round and reactive to light. ENT: Pharynx normal. Neck: Normal inspection. Neck supple. CVS: Tachycardic, regular rhythm. Heart rate low 100s. Pulses normal. Respiratory: Mildrespiratory distress, tachypneic.. Breath sounds diminished throughout, poor inspiratory effort Abdomen: Obese, Soft and tender epigastric area, no rebound or guarding. +BS x4 Skin: Skin warm and dry. Normal skin color. Normal skin turgor. No rashes. Extremities: No lower extremity edema. Neuro: Oriented X 3. No motor deficit. No sensory deficit. Limited mobility due to body habitus. Course Course Course Narrative: 51-year-old morbidly obese female with a history of HTN,anxiety/depression, chronic pain on chronic opaites, CKF, HTN, HLD, DM, spinal osteo/discitis who presents with 1 day of epigastric abdominal pain and vomiting. Tachycardic and tachypneic on arrival due to pain, yelling out. initially unable to assist staff in boosting and movements due to pain but then able to get up out of bed to use the bathroom. She has not had fevers, diarrhea. No radiation of the pain. No hx SBO. She is passing gas. Abd is soft. Question gastroparesis. She has had other visits to the ER for abd pain with negative CT scans. Hold off on CT for now given pain is epigastric. Will check lab workup including LFTs and lipase. Reevaluation(s) Reevaluation #1: Lab workup with WBC 11.6, Ca++ 10.8 which she has had a history of in the past, improves with IVF. Small anion gap of 22. most likely due to mild starvation ketosis, no PO intake in >24 hours per her report. UA pending. Will give GI cocktail and dose of her home OxyContin and reassess. Reevaluation #2: Patient sleeping comfortably after meds. Will give PO trial when she wakes up and plan for d/c home. Reevaluation #3: Tolerating zachariah chnio. Feeling better. Stable for d/c home with PRN reglan for nausea. Has zofan at home that never works for her. Encouraged her to follow up with her PCP and GI for further management. MDM - Abdominal Pain Medical Records Attestation: I reviewed the patient's medical records. Lab Data Attestation: I reviewed the patient's lab results. Result diagrams: 02/14/22 20:03 02/14/22 20:03 Labs: Lab Results 02/14/22 02/14/22 02/14/22 Range/Units 20:03 20:03 20:03 WBC 11.6 H (4.8-10.8) X10*3/uL RBC 4.12 L (4.20-5.50) X10*6/uL Hgb 12.1 (12.0-16.0) g/dl Hct 35.6 L (37.0-47.0) % MCV 86.4 (80.0-98.0) fL MCH 29.4 (27.0-33.0) pg MCHC 34.0 (31.0-35.0) g/dl RDW 14.3 (11.0-16.0) % Plt Count 449 H (160-400) X10*3/uL MPV 9.5 (9.4-12.3) fL Immature Gran % (Auto) 0.7 H (0.0-0.4) % Neut % (Auto) 84.9 H (45-73) % Lymph % (Auto) 10.1 L (20-40) % Glasscock % (Auto) 3.1 (2-11) % Eos % (Auto) 0.9 (0-4) % Baso % (Auto) 0.3 (0-2) % Lymph # (Auto) 1.2 (1.2-4.9) X10*3/uL Glasscock # (Auto) 0.4 (0.1-1.2) X10*3/uL Eos # (Auto) 0.1 (0.0-0.4) X10*3/uL Baso # (Auto) 0.0 (0.0-0.2) X10*3/uL Abs Immat Gran (auto) 0.08 H (0.00-0.03) X10*3/uL Absolute Neuts (auto) 9.9 H (2.0-8.3) x10*3/uL Absolute Nucleated RBC 0.000 (0.0-0.012) X10*3/uL Nucleated RBC % (auto) 0.0 (0.0-0.2) /100WBC Sodium 135 (135-145) mmol/L Potassium 4.6 (3.3-5.1) mmol/L Chloride 98 (96-108) mmol/L Carbon Dioxide 20 L (22-29) mmol/L Anion Gap 22 H (12-20) BUN 7 L (9-16) mg/dL Creatinine 0.93 (0.5-1.4) mg/dL Estim Creat Clear Calc 103.4 Estimated GFR > 60 Random Glucose 251 H (60-115) mg/dL Calcium 10.8 H (8.4-10.2) mg/dL Magnesium 1.8 (1.6-2.6) mg/dL Total Bilirubin 0.5 (0.0-1.0) mg/dL Direct Bilirubin < 0.2 (0.0-0.5) mg/dL AST 16 (5-31) U/L ALT 19 (0-31) U/L Alkaline Phosphatase 147 H D (39-117) U/L Troponin I High Sens 3.7 (<3.5-17.0) ng/L Total Protein 8.2 H (6.5-8.0) g/dL Albumin 4.4 (3.5-5.0) g/dL Lipase 14 (8-78) U/L COVID-19 (ETHAN) (Negative) COVID-19 Clin Com Influenza Type A (ANGEL) (Negative) Influenza Type B (ANGEL) (Negative) Influenza A & B Note 02/14/22 02/14/22 Range/Units 20:03 20:03 WBC (4.8-10.8) X10*3/uL RBC (4.20-5.50) X10*6/uL Hgb (12.0-16.0) g/dl Hct (37.0-47.0) % MCV (80.0-98.0) fL MCH (27.0-33.0) pg MCHC (31.0-35.0) g/dl RDW (11.0-16.0) % Plt Count (160-400) X10*3/uL MPV (9.4-12.3) fL Immature Gran % (Auto) (0.0-0.4) % Neut % (Auto) (45-73) % Lymph % (Auto) (20-40) % Glasscock % (Auto) (2-11) % Eos % (Auto) (0-4) % Baso % (Auto) (0-2) % Lymph # (Auto) (1.2-4.9) X10*3/uL Glasscock # (Auto) (0.1-1.2) X10*3/uL Eos # (Auto) (0.0-0.4) X10*3/uL Baso # (Auto) (0.0-0.2) X10*3/uL Abs Immat Gran (auto) (0.00-0.03) X10*3/uL Absolute Neuts (auto) (2.0-8.3) x10*3/uL Absolute Nucleated RBC (0.0-0.012) X10*3/uL Nucleated RBC % (auto) (0.0-0.2) /100WBC Sodium (135-145) mmol/L Potassium (3.3-5.1) mmol/L Chloride (96-108) mmol/L Carbon Dioxide (22-29) mmol/L Anion Gap (12-20) BUN (9-16) mg/dL Creatinine (0.5-1.4) mg/dL Estim Creat Clear Calc Estimated GFR Random Glucose (60-115) mg/dL Calcium (8.4-10.2) mg/dL Magnesium (1.6-2.6) mg/dL Total Bilirubin (0.0-1.0) mg/dL Direct Bilirubin (0.0-0.5) mg/dL AST (5-31) U/L ALT (0-31) U/L Alkaline Phosphatase (39-117) U/L Troponin I High Sens (<3.5-17.0) ng/L Total Protein (6.5-8.0) g/dL Albumin (3.5-5.0) g/dL Lipase (8-78) U/L COVID-19 (ETHAN) Negative (Negative) COVID-19 Clin Com See Note Influenza Type A (ANGEL) Negative (Negative) Influenza Type B (ANGEL) Negative (Negative) Influenza A & B Note See Note ECG Data Attestation: I personally reviewed and interpreted this ECG as follows: ECG interpretation date: 02/14/22 ECG interpretation time: 19:07 Prior ECG tracings: available for review Interpretation: sinus tachycardia, HR 113 bpm, normal SC interval, prolonged Qtc 515. no ST segment elevations or depressions Critical Care Time Critical Care Time Critical Care Time: No Discharge Plan Discharge Clinical Impression: Abdominal pain Patient Disposition: Home, Self-Care Instructions: Abdominal Pain (ED) Additional Instructions: Your lab workup today was unremarkable. Your pain is most likely due to gastritis which is and irritation and inflammation of your stomach lining. Start taking the prescribed medication as needed for nausea. Stick to a bland diet. Avoid foods high in acid, avoid alcohol and NSAID medications like Aleve, Motrin, Advil or ibuprofen. Follow up with your doctor as needed. Follow up with GI doctor if you symptoms persist despite dietary modifications and medication. If you develop new or worsening symptoms call 911 or come back to the ER for further evaluation. Prescriptions: New ondansetron 4 mg tablet,disintegrating 4 mg PO Q8H PRN (Reason: nausea and vomiting) Qty: 7 0RF metoclopramide HCl [Reglan] 10 mg tablet 10 mg PO Q6H PRN (Reason: nausea and vomiting) Qty: 10 0RF No Action nystatin [Nyamyc] 100,000 unit/gram powder 1 applic topical QID 0RF insulin aspart U-100 [Novolog Flexpen U-100 Insulin] 100 unit/mL (3 mL) insulin pen See Rx Instructions unit .ROUTE .COMPLEX 0RF Protocol: Insulin Correction Scale Less than or equal to 110 ---- Give (units): 0 111 to 150 Give (units): 0 151 to 200 Give (units): 2 201 to 250 Give (units): 4 251 to 300 Give (units): 6 301 to 350 Give (units): 8 Greater than 350 Give (units): 10 Call MD if Blood Glucose > : 350 Rx Instructions: Patient did not know her scale other than the fact that it changed recently oxybutynin chloride 10 mg tablet extended release 24hr 10 mg PO DAILY 0RF chlorthalidone 25 mg tablet 25 mg PO DAILY 0RF aspirin 81 mg tablet,delayed release (DR/EC) 81 mg PO DAILY 0RF lorazepam 2 mg tablet 1 tab PO TID PRN (Reason: Anxiety) 0RF amlodipine 10 mg tablet 10 mg PO DAILY 0RF lisinopril 5 mg tablet 5 mg PO DAILY 0RF propranolol 120 mg capsule,extended release 24 hr 120 mg PO DAILY 0RF zolpidem 10 mg tablet 10 mg PO BEDTIME PRN (Reason: Insomnia) 0RF finasteride 5 mg tablet 5 mg PO DAILY 0RF loratadine 10 mg tablet 10 mg PO DAILY 0RF nabumetone 500 mg tablet 500 tab PO BID 0RF rosuvastatin 40 mg tablet 40 mg PO BEDTIME 0RF bupropion HCl 300 mg tablet extended release 24 hr 300 mg PO DAILY 0RF gabapentin 300 mg capsule 900 mg PO TID 0RF Rybelsus 7 mg tablet 1 tab PO DAILY 0RF Flovent HFA 110 mcg/actuation HFA aerosol inhaler 2 puff inhalation BID 0RF doxycycline hyclate 100 mg capsule 1 cap PO Q12H 0RF lamotrigine 25 mg tablet 200 mg PO BEDTIME 0RF omeprazole 20 mg capsule,delayed release(DR/EC) 1 cap PO DAILY 0RF simethicone 125 mg tablet,chewable PO BID PRN (Reason: Gastric Reflux) 0RF ergocalciferol (vitamin D2) [Vitamin D2] 1,250 mcg (50,000 unit) capsule 50,000 unit PO QWEEK 0RF fluticasone propionate 50 mcg/actuation spray,suspension 1 spray intranasal DAILY 0RF oxycodone 20 mg tablet 20 mg PO Q4H PRN (Reason: Pain) 0RF Culturelle 15 billion cell capsule, sprinkle 2 cap PO DAILY 0RF Tresiba FlexTouch U-100 100 unit/mL (3 mL) insulin pen 80 unit subcut BEDTIME 0RF oxycodone [OxyContin] 30 mg tablet,oral only,ext.rel.12 hr 1 tab PO BID 0RF Referrals: Aarti Jennings MD [Physician] - (acute on chronic abdominal pain, ?gastroparesis)
--- NOTE | 2022-02-14 18:13 | ECG_ITS ---
Test Reason : CHEST TIGHTNESS Blood Pressure : / mmHG Vent. Rate : 113 BPM Atrial Rate : 113 BPM P-R Int : 144 ms QRS Dur : 076 ms QT Int : 376 ms P-R-T Axes : 065 053 041 degrees QTc Int : 515 ms Sinus tachycardia Nonspecific ST abnormality Abnormal ECG When compared with ECG of 30-DEC-2021 23:13, No significant change was found Referred By: Gabriella Rogers Electronically Signed By:PACO ATKINSON MD
[2022-02-14 18:19] VITALS: BP 148/97; PULSE 117; RESP 22; TEMP 37.4; O2SAT 98; BMI 44.6
[2022-02-14 20:06] VITALS: RESP 20
[2022-02-14] MEDS: HYDROmorphone HCl 1 MG/ML SYRINGE IM (20:06)
[2022-02-14] MEDS: Metoclopramide HCl 10 MG/2 ML VIAL IM (20:07)
[2022-02-14 20:13] LABS: MANUAL DIFF FLAG NO
[2022-02-14 20:16] LABS: Basophils Percent Auto 0.3 % (0-2); Eosinophils Absolute Auto 0.1 X10*3/uL (0.0-0.4); Eosinophils Percent Auto 0.9 % (0-4); Hematocrit 35.6 % (37.0-47.0); Hemoglobin 12.1 g/dl (12.0-16.0); Imm Gran Abs Auto 0.08 X10*3/uL (0.00-0.03); Imm Gran Pct Auto 0.7 % (0.0-0.4); Lymphocytes Absolute Auto 1.2 X10*3/uL (1.2-4.9); Lymphocytes Percent Auto 10.1 % (20-40); Mean Corpuscular Hemoglobin 29.4 pg (27.0-33.0); Mean Corpuscular Volume 86.4 fL (80.0-98.0); Mean Platelet Volume 9.5 fL (9.4-12.3); Monocytes Absolute Auto 0.4 X10*3/uL (0.1-1.2); Monocytes Percent Auto 3.1 % (2-11); Neutrophils Absolute Auto 9.9 x10*3/uL (2.0-8.3); Neutrophils Percent Auto 84.9 % (45-73); Platelet Count 449 X10*3/uL (160-400); Red Blood Count 4.12 X10*6/uL (4.20-5.50); Red Cell Distribution Width 14.3 % (11.0-16.0); White Blood Count 11.6 X10*3/uL (4.8-10.8)
[2022-02-14 20:32] LABS: Alanine Aminotransferase 19 U/L (0-31); Albumin Level 4.4 g/dL (3.5-5.0); Alkaline Phosphatase 147 U/L (39-117); Anion Gap 22 (12-20); Aspartate Amino Transferase 16 U/L (5-31); Bilirubin Direct < 0.2 mg/dL (0.0-0.5); Bilirubin Total 0.5 mg/dL (0.0-1.0); Blood Urea Nitrogen 7 mg/dL (9-16); Calcium 10.8 mg/dL (8.4-10.2); Carbon Dioxide 20 mmol/L (22-29); Chloride 98 mmol/L (96-108); Creatinine Clr Calc Pharmacy 103.4; Estimated Glomerular Filt Rate > 60; Glucose Random 251 mg/dL (60-115); Lipase 14 U/L (8-78); Magnesium 1.8 mg/dL (1.6-2.6); Potassium 4.6 mmol/L (3.3-5.1); Sodium 135 mmol/L (135-145); Total Protein 8.2 g/dL (6.5-8.0)
[2022-02-14 20:33] LABS: COVID-19 Test Negative (Negative); IDNOW Serial# 16C4AD1C; Influenza A Negative (Negative); Influenza B2 Negative (Negative)
[2022-02-14 20:40] LABS: Troponin-I High Sensitivity 3.7 ng/L (<3.5-17.0)
[2022-02-14] MEDS: 0.9 % Sodium Chloride 1,000 ML 999 ML IVCONT (20:45)
[2022-02-14] MEDS: Magnesium Hydrox/Alum Hydrox 30 ML ORAL.SUSP PO (22:04)
[2022-02-14] MEDS: PHENobarb/Hyoscy/Atropine/Scop 10 ML ELIXIR PO (22:04)
[2022-02-14] MEDS: Lidocaine HCl Viscous 2 % 15 ML SOLUTION MUCOUS MEM (22:04)
[2022-02-14] MEDS: oxyCODONE HCl ER 10 MG TAB.ER.12H 30 MG PO (22:05)
[2022-02-14 22:54] VITALS: BP 155/86; PULSE 106; RESP 18; TEMP 37.1; O2SAT 97
[2022-02-15 00:07] VITALS: RESP 18; O2SAT 98
== END 2022-02-15 00:58 | disposition home or self-care (01) ==
PROVIDERS: Physician Assistant; Emergency Provider Emergency Medicine
DX: R10.9 Unspecified abdominal pain (principal); R07.89 Other chest pain; R51.9 Headache, unspecified; R11.2 Nausea with vomiting, unspecified; F17.210 Nicotine dependence, cigarettes, uncomplicated; Z20.822 Contact with and (suspected) exposure to COVID-19; Z79.899 Other long term (current) drug therapy; Z71.6 Tobacco abuse counseling
CPT/HCPCS: 36415; 71045; 80048; 80076; 83690; 83735; 84484; 85025; 87502; 87635; 93005; 96360; 96372; 99284; J1170; J2765

== ENCOUNTER 2022-05-13 07:13 | Emergency (ER) | payer OTHER, SELFPAY ==
--- NOTE | ~2022-05-13 | XR_ITS ---
EXAMINATION: XR CHEST CLINICAL INFORMATION: Weakness COMPARISON: 02/14/2022 TECHNIQUE: 2 views of the chest were obtained. FINDINGS: The lungs are well expanded. There is no focal consolidation, edema, or effusion. No pneumothorax. The cardiomediastinal silhouette is within normal limits. No acute osseous abnormality. XR/XR chest 2V IMPRESSION: No acute pulmonary finding.
--- NOTE | ~2022-05-13 | CT_ITS ---
EXAMINATION: CT HEAD WITHOUT CONTRAST CLINICAL INFORMATION: Headache COMPARISON: None. TECHNIQUE: Contiguous axial imaging was performed from the skull base to vertex without intravenous contrast. This CT examination was performed using dose optimization techniques as appropriate, variously including the following: * Automated exposure control * Adjustment of mA and/or kV according to patient size (this includes techniques or standardized protocols for targeted exams where dose is matched to indication/reason for exam; i.e. extremities or head) Use of iterative reconstruction technique DLP: 715 mGy-cm. FINDINGS: There is no evidence of acute intracranial hemorrhage or territorial infarction. No abnormal mass effect or midline shift is seen. Stephenson to white matter differentiation is well preserved. No extra-axial fluid collections are identified. No hydrocephalus. No significant volume loss. Patchy periventricular and deep white matter hypoattenuation is consistent with mild small vessel ischemic changes. The osseous structures and soft tissues are normal. Partially opacified right ethmoid air cells. Postsurgical changes at the left ostiomeatal complex. The mastoid air cells and visualized portions of the paranasal sinuses are otherwise well aerated. CT/CT head/brain wo con IMPRESSION: No acute intracranial pathology. Partial opacification of the right ethmoid air cells.
[2022-05-13 07:22] VITALS: BP 138/00; PULSE 109; O2SAT 97
[2022-05-13 08:11] VITALS: BP 216/96; PULSE 120; RESP 20; TEMP 36.3; O2SAT 96; BMI 39.5
--- NOTE | 2022-05-13 08:19 | ED_ITS ---
HPI - General Adult General Chief complaint: Head Injury Stated complaint: ABDO/BACK PAIN Time Seen by Provider: 05/13/22 08:19 Source: patient and EMS Mode of arrival: EMS Limitations: no limitations History of Present Illness HPI narrative: Patient is a 51 year old female presenting to the emergency department today after a fall 2 days ago. Patient states that she has been having a lot of runny stools lately and 2 days ago, she fell onto the floor. Patient states that she has chronic back pain and is on multiple opiate type medications. Patient states that her head is hurting her today on top of her chronic back pain. Patient denies any dizziness, lightheadedness, abdominal pain, nausea, vomiting, fever, chills, blurry vision, double vision, loss of vision, chest pain, difficulty breathing, shortness of breath, back pain, night sweats, pain with urination, increased urinary frequency, increased urinary urgency, blood in her urine or stool, syncope or a near syncopal episode, bladder incontinence, bowel retention, bladder retention, or any other complaints at this time. Onset (ago): day(s) (2) Location: head Radiation: non-radiation Severity: mild Severity scale (1-10): 2 Quality: dull Pain Consistency: constant Relieving factors: none Exacerbating factors: none Associated symptoms: denies other symptoms Treatments prior to arrival: none Related Data Home Medications Medication Instructions Recorded Confirmed amlodipine 10 mg tablet 10 mg PO DAILY 07/07/20 12/30/21 aspirin 81 mg tablet,delayed 81 mg PO DAILY 07/07/20 12/30/21 release bupropion HCl 300 mg 24 hr tablet, 300 mg PO DAILY 07/07/20 12/30/21 extended release chlorthalidone 25 mg tablet 25 mg PO DAILY 07/07/20 12/30/21 finasteride 5 mg tablet 5 mg PO DAILY 07/07/20 12/30/21 insulin aspart U-100 100 unit/mL See Rx Instructions .Route .COMPLEX 07/07/20 12/30/21 (3 mL) subcutaneous pen (Novolog Flexpen U-100 Insulin aspart) lisinopril 5 mg tablet 5 mg PO DAILY 07/07/20 12/30/21 loratadine 10 mg tablet 10 mg PO DAILY 07/07/20 12/30/21 lorazepam 2 mg tablet 1 tab PO TID PRN Anxiety 07/07/20 12/30/21 nabumetone 500 mg tablet 500 tab PO BID 07/07/20 12/30/21 nystatin 100,000 unit/gram topical 1 applic topical QID 07/07/20 12/30/21 powder (Nyamyc) oxybutynin chloride 10 mg 10 mg PO DAILY 07/07/20 12/30/21 tablet,extended release 24 hr propranolol 120 mg capsule,24 120 mg PO DAILY 07/07/20 12/30/21 hr,extended release rosuvastatin 40 mg tablet 40 mg PO BEDTIME 07/07/20 12/30/21 zolpidem 10 mg tablet 10 mg PO BEDTIME PRN Insomnia 07/07/20 12/30/21 fluticasone propionate 110 2 puff inhalation BID 04/08/21 12/30/21 mcg/actuation HFA aerosol inhaler (Flovent HFA) gabapentin 300 mg capsule 900 mg PO TID 04/08/21 12/30/21 semaglutide 7 mg tablet (Rybelsus) 1 tab PO DAILY 04/08/21 12/30/21 Lactobacillus rhamnosus GG 15 2 cap PO DAILY 12/30/21 12/30/21 billion cell sprinkle capsule (Culturelle) doxycycline hyclate 100 mg capsule 1 cap PO Q12H 12/30/21 12/30/21 ergocalciferol (vitamin D2) 1,250 50,000 unit PO QWEEK 12/30/21 12/30/21 mcg (50,000 unit) capsule (Vitamin D2) fluticasone propionate 50 1 spray intranasal DAILY 12/30/21 12/30/21 mcg/actuation nasal spray,suspension insulin degludec 100 unit/mL (3 80 unit subcut BEDTIME 12/30/21 12/30/21 mL) subcutaneous pen (Tresiba FlexTouch U-100 insulin) lamotrigine 25 mg tablet 200 mg PO BEDTIME 12/30/21 12/30/21 omeprazole 20 mg capsule,delayed 1 cap PO DAILY 12/30/21 12/30/21 release oxycodone 20 mg tablet 20 mg PO Q4H PRN Pain 12/30/21 12/30/21 oxycodone 30 mg tablet,crush 1 tab PO BID 12/30/21 12/30/21 resistant,extended release 12 hr (OxyContin) simethicone 125 mg chewable tablet mg PO BID PRN Gastric Reflux 12/30/21 Previous Rx's Medication Instructions Recorded metoclopramide HCl 10 mg tablet 10 mg PO Q6H PRN nausea and 02/14/22 (Reglan) vomiting #10 tabs ondansetron 4 mg disintegrating 4 mg PO Q8H PRN nausea and 02/14/22 tablet vomiting #7 tabs fidaxomicin 200 mg tablet 200 mg PO BID 10 days #20 tabs 05/13/22 Allergies Allergy/AdvReac Type Severity Reaction Status Date / Time metformin Allergy Severe Unknown Verified 07/07/20 08:27 acetaminophen [From TYLENOL] Allergy Unknown HIVES Verified 07/07/20 08:27 clonazepam [From KLONOPIN] Allergy Unknown HIVES Verified 07/07/20 08:27 Review of Systems Constitutional: Constitutional: Reports no additional constitutional complaints, Denies chills, Denies fever(s), Reports headache(s) and Denies night sweats Eyes: Eyes: Reports no additional eye complaints, Denies blurry vision, Denies change in vision, Denies diplopia, Denies eye discharge, Denies loss of vision and Denies eye pain ENT: Denies dizziness and Reports headache(s) Cardiovascular: Cardiovascular: Reports no additional cardiovascular complaints, Denies chest pain, Denies lightheadedness, Denies Loss of Consciousness and Denies dyspnea Respiratory: Respiratory: Reports no additional respiratory complaints and Denies dyspnea Gastrointestinal: Gastrointestinal: Reports no additional gastrointestinal complaints, Denies abdominal pain, Denies melena, Denies hematochezia, Denies change in bowel habits, Denies change in stool character, Reports diarrhea and Reports loose stools Genitourinary: Genitourinary: Denies hematuria, Denies urinary frequency, Denies dysuria, Denies urinary incontinence, Denies urinary hesitancy and Denies urinary urgency Musculoskeletal: Musculoskeletal: Reports no additional musculoskeletal complaints, Denies numbness and Denies tingling Neurologic: Denies dizziness, Reports headache(s), Denies loss of vision, Denies numbness and Denies tingling Psychiatric: Psychiatric: Reports no additional psychiatric complaints Endocrine: Endocrine: Reports no additional endocrine complaints Hematologic/Lymphatic: Hematologic/Lymphatic: Reports no additional hematologic/lymphatic complaints Allergic/Immunologic: Allergic/Immunologic: Reports no additional allergic/immunologic complaints PMFSH Past Medical History Attestation statement: The following information was validated with the patient. Source: old records reviewed Medical History Abdominal pain Agoraphobia Anxiety Asthma Back pain Borderline personality disorder Chronic back pain Chronic kidney disease Depression Diabetes Hypercalcemia Hypertension Lower back pain Obesity Urinary incontinence Surgical History H/O oophorectomy History of appendectomy Social History Social History Household Members: Caregiver Housing: Apartment Do you presently have visiting nurse or other home services: Yes Patient Tobacco Use Status: Tobacco use Unknown Tobacco use type: Cigarette Cigarette Packs Per Day: 1 Cigarettes Per Day: 20.0 Advance Directives: Yes Advance Directives on File: Yes Advance Directives Date on File: 04/09/21 service: No Current occupational status: disabled Physical Exam ED Vital Signs: Vital Signs - 24 hr 05/13/22 08:11 05/13/22 12:35 05/13/22 13:15 Temperature 97.4 F 97.8 F Pulse Rate 120 H 118 H 86 Respiratory Rate 20 22 H 18 Blood Pressure 216/96 H 205/93 H 176/100 H Pulse Oximetry 96 97 96 Oxygen Delivery Method Room Air Room Air Room Air BMI result Body Mass Index 39.5 Const General: cooperative, no acute distress, alert and awake Nutritional Appearance: well nourished Orientation/consciousness: patient oriented x3 Limitations: no limitations [facility] Head: Yes normal to inspection and Yes atraumatic Ears: hearing grossly normal bilaterally and external ears normal General nose exam: Normal external nose present, no nasal discharge noted and no epistaxis Face and sinus: Yes normal facial exam, No abrasion and No laceration Mouth: Normal oral and palatal mucosa present, no drooling and no muffled voice Eyes General: appearance normal, both eyes and all related structures Periorbital: periorbital findings normal Eyelids: Yes eyelids normal Conjunctivae: conjunctivae normal Pupils: Equal, round and reactive pupils present EOM: EOMs intact bilaterally Neck Neck: Yes normal visual inspection, Yes full ROM and Yes no lymphadenopathy Chest Chest palpation & inspection: normal inspection of the chest Resp Effort & Inspection: normal respiratory effort and able to speak in complete sentences Auscultation: clear to auscultation bilaterally Cardio Rate: regular rate Rhythm: regular rhythm GI Inspection: Yes normal to inspection Palpation (GI): Soft to palpation, not firm, nontender and no guarding General: Yes no CVA tenderness Back/Spine/Pelvis Back: no CVA tenderness Cervical Spine: normal cervical lordosis Thoracic/Lumbar Spine: thoracic and lumbar spine normal to inspection and thoraco-lumbar ROM normal Pelvis: no pain with anterior-posterior compression Neuro General: patient oriented x3 and moves all extremities Cranial nerves: Yes Equal, round and reactive pupils present Cognition (Neuro): normal cognition Motor exam (neuro): 5/5 motor strength present throughout Sensory Exam: Normal double simultaneous stimulation for sensation Coordination: [id number] test normal Extrem General: Yes normal to inspection, Yes full ROM and Yes capillary refill normal Psych Appearance: grossly normal Mental Status: mental status grossly normal Affect: normal affect Attitude: cooperative Thought process: Normal thought process present Thought content: Normal thought content present Insight: Good insight present (Psych) Medical Decision Making [facility] Narrative Medical decision making narrative: Patient is a 51 year old female presenting to the emergency department today with a headache and loose stools. Patient's physical exam showed tachycardia and hypertension. Patient's blood work showed an elevated white blood cell count of 18.7 with an elevated alk phos of 213. Patient's C. diff test came back positive. Patient was not septic and did not have a picture consistent with sepsis. Patient's tachycardia and hypertension was secondary to not taking her normal morning medication and being in pain. Patient's EKG was unremarkable. Patient's chest x-ray and head CT showed no acute process. I explained my physical exam findings as well as all test results to the patient. I answered all questions asked by the patient. Patient received IV dilaudid and IV versed which she stated helped her symptoms significantly. Patient's tachycardia and hypertension resolved once the patient's pain was managed. I stressed the importance of the patient taking her medication as prescribed. I stressed the importance of the patient following up with her primary care provider. I stresse d the importance of the patient returning to the emergency department immediately if her symptoms were to worsen or if she were to develop any dizziness, shortness of breath, difficulty breathing, chest pain, blurry vision, loss of vision, nausea, vomiting, abdominal pain, fever, chills, back pain, or any other complaints. Patient verbalized agreement and understanding with this treatment plan and discharge. Differential Diagnosis Differential Diagnosis: c. diff, chronic pain Medical Records Medical records reviewed: Yes I reviewed the patient's medical records. Lab Data Lab results reviewed: Yes I reviewed the patient's lab results. Result diagrams: 05/13/22 10:28 05/13/22 10:28 Labs: Lab Results 05/13/22 05/13/22 05/13/22 Range/Units 10:28 10: 10: WBC 18.7 H (4.8-10.8) X10*3/uL RBC 4.63 (4.20-5.50) X10*6/uL Hgb 13.8 (12.0-16.0) g/dl Hct 40.1 (37.0-47.0) % MCV 86.6 (80.0-98.0) fL MCH 29.8 (27.0-33.0) pg MCHC 34.4 (31.0-35.0) g/dl RDW 13.3 (11.0-16.0) % Plt Count 371 (160-400) X10*3/uL MPV 9.7 (9.4-12.3) fL Immature Gran % (Auto) 0.5 H (0.0-0.4) % Neut % (Auto) 91.3 H (45-73) % Lymph % (Auto) 4.3 L (20-40) % [place] % (Auto) 3.6 (2-11) % Eos % (Auto) 0.1 (0-4) % Baso % (Auto) 0.2 (0-2) % Lymph # (Auto) 0.8 L (1.2-4.9) X10*3/uL [place] # (Auto) 0.7 (0.1-1.2) X10*3/uL Eos # (Auto) 0.0 (0.0-0.4) X10*3/uL Baso # (Auto) 0.0 (0.0-0.2) X10*3/uL Abs Immat Gran (auto) 0.10 H (0.00-0.03) X10*3/uL Absolute Neuts (auto) 17.1 H (2.0-8.3) x10*3/uL Absolute Nucleated RBC 0.000 (0.0-0.012) X10*3/uL Nucleated RBC % (auto) 0.0 (0.0-0.2) /100WBC Smear Tech's Comments VERIFIED Sodium 135 (135-145) mmol/L Potassium 4.1 (3.3-5.1) mmol/L Chloride 96 (96-108) mmol/L Carbon Dioxide 22 (22-29) mmol/L Anion Gap 21 H (12-20) BUN 19 H D (9-16) mg/dL Creatinine 1.00 (0.5-1.4) mg/dL Estim Creat Clear Calc 89.8 Estimated GFR 58 Random Glucose 293 H (60-115) mg/dL Calcium 10.6 H (8.4-10.2) mg/dL Magnesium 1.7 (1.6-2.6) mg/dL Total Bilirubin 0.5 (0.0-1.0) mg/dL AST 14 (5-31) U/L ALT 23 (0-31) U/L Alkaline Phosphatase 213 H D (39-117) U/L Troponin I High Sens 3.6 (<3.5-17.0) ng/L Total Protein 8.6 H (6.5-8.0) g/dL Albumin 4.8 (3.5-5.0) g/dL Ethyl Alcohol < 10 mg/dL C. difficile Tox B Gene (Negative) COVID-19 (ETHAN) (Negative) COVID-19 Clin Com 05/13/22 05/13/22 Range/Units 10:28 13:07 WBC (4.8-10.8) X10*3/uL RBC (4.20-5.50) X10*6/uL Hgb (12.0-16.0) g/dl Hct (37.0-47.0) % MCV (80.0-98.0) fL MCH (27.0-33.0) pg MCHC (31.0-35.0) g/dl RDW (11.0-16.0) % Plt Count (160-400) X10*3/uL MPV (9.4-12.3) fL Immature Gran % (Auto) (0.0-0.4) % Neut % (Auto) (45-73) % Lymph % (Auto) (20-40) % [place] % (Auto) (2-11) % Eos % (Auto) (0-4) % Baso % (Auto) (0-2) % Lymph # (Auto) (1.2-4.9) X10*3/uL [place] # (Auto) (0.1-1.2) X10*3/uL Eos # (Auto) (0.0-0.4) X10*3/uL Baso # (Auto) (0.0-0.2) X10*3/uL Abs Immat Gran (auto) (0.00-0.03) X10*3/uL Absolute Neuts (auto) (2.0-8.3) x10*3/uL Absolute Nucleated RBC (0.0-0.012) X10*3/uL Nucleated RBC % (auto) (0.0-0.2) /100WBC Smear Tech's Comments Sodium (135-145) mmol/L Potassium (3.3-5.1) mmol/L Chloride (96-108) mmol/L Carbon Dioxide (22-29) mmol/L Anion Gap (12-20) BUN (9-16) mg/dL Creatinine (0.5-1.4) mg/dL Estim Creat Clear Calc Estimated GFR Random Glucose (60-115) mg/dL Calcium (8.4-10.2) mg/dL Magnesium (1.6-2.6) mg/dL Total Bilirubin (0.0-1.0) mg/dL AST (5-31) U/L ALT (0-31) U/L Alkaline Phosphatase (39-117) U/L Troponin I High Sens (<3.5-17.0) ng/L Total Protein (6.5-8.0) g/dL Albumin (3.5-5.0) g/dL Ethyl Alcohol mg/dL C. difficile Tox B Gene POSITIVE A* (Negative) COVID-19 (ETHAN) Negative (Negative) COVID-19 Clin Com See Note Imaging Data Chest x-ray: Attestation: I personally reviewed and interpreted this imaging study as follows: My impression: No acute process. Radiologist's impression: EXAMINATION: XR CHEST CLINICAL INFORMATION: Weakness COMPARISON: 02/14/2022 TECHNIQUE: 2 views of the chest were obtained. FINDINGS: The lungs are well expanded. There is no focal consolidation, edema, or effusion. No pneumothorax. The cardiomediastinal silhouette is within normal limits. No acute osseous abnormality. XR/XR chest 2V IMPRESSION: No acute pulmonary finding. Dictated By: Jake Walden MD Signed By: Electronically signed by Jake Walden MD 05/13/[address]: Attestation: I personally reviewed and interpreted this imaging study as follows: My impression: No acute process. Radiologist's impression: EXAMINATION: CT HEAD WITHOUT CONTRAST CLINICAL INFORMATION: Headache COMPARISON: None. TECHNIQUE: Contiguous axial imaging was performed from the skull base to vertex without intravenous contrast. This CT examination was performed using dose optimization techniques as appropriate, variously including the following: *? Automated exposure control *? Adjustment of mA and/or kV according to patient size (this includes techniques or standardized protocols for targeted exams where dose is matched to indication/reason for exam; i.e. extremities or head) Use of iterative reconstruction technique DLP: 715 mGy-cm. FINDINGS: There is no evidence of acute intracranial hemorrhage or territorial infarction. No abnormal mass effect or midline shift is seen. Stephenson to white matter differentiation is well preserved. No extra-axial fluid collections are identified. No hydrocephalus. No significant volume loss. Patchy periventricular and deep white matter hypoattenuation is consistent with mild small vessel ischemic changes. The osseous structures and soft tissues are normal. Partially opacified right ethmoid air cells. Postsurgical changes at the left ostiomeatal complex. The mastoid air cells and visualized portions of the paranasal sinuses are otherwise well aerated. ? CT/CT head/brain wo con IMPRESSION: No acute intracranial pathology. Partial opacification of the right ethmoid air cells. Dictated By: Jake Walden MD Signed By: Electronically signed by Jake Walden MD 05/13/22 0911 ECG Data Attestation: I personally reviewed and interpreted this ECG as follows: Prior ECG tracings: available for review Interpretation: Vent. Rate: 123 BPM ? ? Atrial Rate: 123 BPM P-R Int: 146 ms? QRS Dur: 084 ms QT Int: 330 ms ? ? ? P-R-T Axes: 056 054 050 degrees QTc Int: 472 ms ? Sinus tachycardia Otherwise normal ECG When compared with ECG of 14-FEB-2022 18:50, No significant change was found ? Electronically Signed By:PATEL CUELLO DOFACP Dictated By: Patel Cuello DO Signed By: Electronically signed by Patel Cuello DO 05/13/22 9715 Discharge Plan Discharge Clinical Impression: Back pain, Headache, C. difficile colitis Patient Disposition: Home, Self-Care Instructions: C. Diff (Clostridioides Difficile) Infection (ED), Acute Headache (ED), Back Pain (ED) Additional Instructions: Follow up with your primary care provider. Return to the emergency department immediately if your symptoms worsen or if you develop any dizziness, shortness of breath, difficulty breathing, chest pain, blurry vision, loss of vision, nausea, vomiting, abdominal pain, fever, chills, back pain, or any other complaints. Prescriptions: New fidaxomicin 200 mg tablet 200 mg PO BID 10 Days Qty: 20 0RF No Action nystatin [Nyamyc] 100,000 unit/gram powder 1 applic topical QID insulin aspart U-100 [Novolog Flexpen U-100 Insulin] 100 unit/mL (3 mL) insulin pen See Rx Instructions .ROUTE .COMPLEX Protocol: Insulin Correction Scale Less than or equal to 110 ---- Give (units): 0 111 to 150 Give (units): 0 151 to 200 Give (units): 2 201 to 250 Give (units): 4 251 to 300 Give (units): 6 301 to 350 Give (units): 8 Greater than 350 Give (units): 10 Call MD if Blood Glucose > : 350 Rx Instructions: Patient did not know her scale other than the fact that it changed recently oxybutynin chloride 10 mg tablet extended release 24hr 10 mg PO DAILY chlorthalidone 25 mg tablet 25 mg PO DAILY aspirin 81 mg tablet,delayed release (DR/EC) 81 mg PO DAILY lorazepam 2 mg tablet 1 tab PO TID PRN (Reason: Anxiety) amlodipine 10 mg tablet 10 mg PO DAILY lisinopril 5 mg tablet 5 mg PO DAILY propranolol 120 mg capsule,extended release 24 hr 120 mg PO DAILY zolpidem 10 mg tablet 10 mg PO BEDTIME PRN (Reason: Insomnia) finasteride 5 mg tablet 5 mg PO DAILY loratadine 10 mg tablet 10 mg PO DAILY nabumetone 500 mg tablet 500 tab PO BID rosuvastatin 40 mg tablet 40 mg PO BEDTIME bupropion HCl 300 mg tablet extended release 24 hr 300 mg PO DAILY gabapentin 300 mg capsule 900 mg PO TID Rybelsus 7 mg tablet 1 tab PO DAILY Flovent HFA 110 mcg/actuation HFA aerosol inhaler 2 puff inhalation BID doxycycline hyclate 100 mg capsule 1 cap PO Q12H lamotrigine 25 mg tablet 200 mg PO BEDTIME omeprazole 20 mg capsule,delayed release(DR/EC) 1 cap PO DAILY simethicone 125 mg tablet,chewable PO BID PRN (Reason: Gastric Reflux) ergocalciferol (vitamin D2) [Vitamin D2] 1,250 mcg (50,000 unit) capsule 50,000 unit PO QWEEK fluticasone propionate 50 mcg/actuation spray,suspension 1 spray intranasal DAILY oxycodone 20 mg tablet 20 mg PO Q4H PRN (Reason: Pain) Culturelle 15 billion cell capsule, sprinkle 2 cap PO DAILY Tresiba FlexTouch U-100 100 unit/mL (3 mL) insulin pen 80 unit subcut BEDTIME oxycodone [OxyContin] 30 mg tablet,oral only,ext.rel.12 hr 1 tab PO BID ondansetron 4 mg tablet,disintegrating 4 mg PO Q8H PRN (Reason: nausea and vomiting) Qty: 7 0RF metoclopramide HCl [Reglan] 10 mg tablet 10 mg PO Q6H PRN (Reason: nausea and vomiting) Qty: 10 0RF Referrals: Evelyn Bui MD [Primary Care Provider] - Interventions: ED Discharge Assessment Last Done: 05/13/22 14:42 Discharge Date/Time: 05/13/22 14:44 Print Language: Syriac
--- NOTE | 2022-05-13 08:29 | ECG_ITS ---
Test Reason : fall Blood Pressure : / mmHG Vent. Rate : 123 BPM Atrial Rate : 123 BPM P-R Int : 146 ms QRS Dur : 084 ms QT Int : 330 ms P-R-T Axes : 056 054 050 degrees QTc Int : 472 ms Sinus tachycardia Otherwise normal ECG When compared with ECG of 14-FEB-2022 18:50, No significant change was found Referred By: Fanta Jorge Electronically Signed By:PATEL TAYLOR
[2022-05-13] MEDS: HYDROmorphone HCl 2 MG/ML VIAL IVPUSH (09:46)
[2022-05-13] MEDS: ondansetron HCL 4 MG/2 ML VIAL IVPUSH (09:46)
[2022-05-13] MEDS: 0.9 % Sodium Chloride 1,000 ML 999 ML IV (09:46)
[2022-05-13 10:38] LABS: Basophils Percent Auto 0.2 % (0-2); Eosinophils Percent Auto 0.1 % (0-4); Hematocrit 40.1 % (37.0-47.0); Hemoglobin 13.8 g/dl (12.0-16.0); Imm Gran Pct Auto 0.5 % (0.0-0.4); Lymphocytes Absolute Auto 0.8 X10*3/uL (1.2-4.9); Lymphocytes Percent Auto 4.3 % (20-40); MANUAL DIFF FLAG SCAN; Mean Corpuscular HGB Conc 34.4 g/dl (31.0-35.0); Mean Corpuscular Hemoglobin 29.8 pg (27.0-33.0); Mean Corpuscular Volume 86.6 fL (80.0-98.0); Mean Platelet Volume 9.7 fL (9.4-12.3); Monocytes Absolute Auto 0.7 X10*3/uL (0.1-1.2); Monocytes Percent Auto 3.6 % (2-11); Neutrophils Absolute Auto 17.1 x10*3/uL (2.0-8.3); Neutrophils Percent Auto 91.3 % (45-73); Platelet Count 371 X10*3/uL (160-400); Red Blood Count 4.63 X10*6/uL (4.20-5.50); Red Cell Distribution Width 13.3 % (11.0-16.0); SCAN SMEAR FLAG 1; White Blood Count 18.7 X10*3/uL (4.8-10.8)
[2022-05-13] MEDS: Midazolam HCl/PF 2 MG/2 ML VIAL IVPUSH (10:55)
[2022-05-13 10:56] LABS: SLIDE REVIEW VERIFIED
[2022-05-13 10:57] LABS: Troponin-I High Sensitivity 3.6 ng/L (<3.5-17.0)
[2022-05-13 11:02] LABS: Alanine Aminotransferase 23 U/L (0-31); Albumin Level 4.8 g/dL (3.5-5.0); Alkaline Phosphatase 213 U/L (39-117); Anion Gap 21 (12-20); Aspartate Amino Transferase 14 U/L (5-31); Bilirubin Total 0.5 mg/dL (0.0-1.0); Blood Urea Nitrogen 19 mg/dL (9-16); Calcium 10.6 mg/dL (8.4-10.2); Carbon Dioxide 22 mmol/L (22-29); Chloride 96 mmol/L (96-108); Creatinine Clr Calc Pharmacy 89.8; Estimated Glomerular Filt Rate 58; Glucose Random 293 mg/dL (60-115); Magnesium 1.7 mg/dL (1.6-2.6); Potassium 4.1 mmol/L (3.3-5.1); Sodium 135 mmol/L (135-145); Total Protein 8.6 g/dL (6.5-8.0)
[2022-05-13 11:04] LABS: COVID-19 Test Negative (Negative); IDNOW Serial# 16C4AD1C
--- NOTE | 2022-05-13 11:29 | PC.NURSE ---
pt continues to be incontinent of bm, pt sts she is unable to detect the urge to go, but once provoked by staff, is able to get up and ambulate to bathroom with minimal assistance and with no obvious distress or guarding during ambulation. pt able to participate in self cleaning and adls. pt able to reposition self in stretcher without assistance. linens changed multiple times.
[2022-05-13 12:01] LABS: Ethanol < 10 mg/dL
[2022-05-13] MEDS: lamoTRIgine 25 MG TABLET PO (12:06)
[2022-05-13] MEDS: Gabapentin 300 MG CAPSULE PO (12:06)
[2022-05-13] MEDS: amLODIPine Besylate 5 MG TABLET PO (12:06)
[2022-05-13] MEDS: buPROPion HCl XL 300 MG TAB.ER.24H PO (12:23)
[2022-05-13] MEDS: Finasteride 5 MG TABLET PO (12:23)
[2022-05-13] MEDS: Propranolol HCL 20 MG TABLET 120 MG PO (12:23)
[2022-05-13 12:35] VITALS: BP 205/93; PULSE 118; RESP 22; TEMP 36.6; O2SAT 97
[2022-05-13 13:15] VITALS: BP 176/100; PULSE 86; RESP 18; O2SAT 96
[2022-05-13 14:13] LABS: CDiff Gene PCR POSITIVE (Negative)
[2022-05-13 15:46] LABS: CDIFF Internal ctrl Dots and bkg OK (V); CDiff Toxin Negative (Negative)
== END 2022-05-13 14:44 | disposition home or self-care (01) ==
PROVIDERS: Physician Assistant Medical; Emergency Provider Emergency Medicine; PCP Internal Medicine
DX: M54.50 Low back pain, unspecified (principal); A04.72 Enterocolitis due to Clostridium difficile, not specified as recurrent; R51.9 Headache, unspecified; F17.210 Nicotine dependence, cigarettes, uncomplicated; Z71.6 Tobacco abuse counseling; Z79.899 Other long term (current) drug therapy; Z20.822 Contact with and (suspected) exposure to COVID-19
CPT/HCPCS: 36415; 70450; 71046; 80053; 82077; 83735; 84484; 85025; 87324; 87493; 87635; 93005; 96361; 96374; 96375; 99284; J1170; J2250; J2405

== ENCOUNTER 2022-06-05 06:41 | Emergency (ER) | payer OTHER, SELFPAY ==
--- NOTE | ~2022-06-05 | XR_ITS ---
Indication: Fall with pain EXAMINATION: Thoracic and lumbar spine. 2 views of the thoracic spine are compared to sagittal imaging from CT dated 01/01/2022. This exam is significantly limited by patient body habitus. The upper thoracic vertebrae are not adequately seen. On the imaging submitted there is no acute finding. Again limited study. There is some evidence of mild degenerative change. 3 views of the lumbar sacral spine AP and lateral. Comparison to sagittal imaging from CT of 12/30/2021. Again limited from body habitus. There is no listhesis or compression injury. Some degenerative changes are noted. Scoliosis convex left apex at L3 is seen. Some loss of disc height at several levels most noted at L3-L4 and at the thoracolumbar junction. Likely degenerative changes in the posterior elements in the lower lumbar region. XR/XR lumbar spine 2-3V IMPRESSION: Limited exam from body habitus. No acute finding on the imaging submitted.
--- NOTE | ~2022-06-05 | XR_ITS ---
Indication: Fall with pain EXAMINATION: Thoracic and lumbar spine. 2 views of the thoracic spine are compared to sagittal imaging from CT dated 01/01/2022. This exam is significantly limited by patient body habitus. The upper thoracic vertebrae are not adequately seen. On the imaging submitted there is no acute finding. Again limited study. There is some evidence of mild degenerative change. 3 views of the lumbar sacral spine AP and lateral. Comparison to sagittal imaging from CT of 12/30/2021. Again limited from body habitus. There is no listhesis or compression injury. Some degenerative changes are noted. Scoliosis convex left apex at L3 is seen. Some loss of disc height at several levels most noted at L3-L4 and at the thoracolumbar junction. Likely degenerative changes in the posterior elements in the lower lumbar region. XR/XR thoracic spine 2V IMPRESSION: Limited exam from body habitus. No acute finding on the imaging submitted.
--- NOTE | 2022-06-05 07:04 | ED.FALL ---
HPI - Fall General Chief Complaint: Fall Stated Complaint: WEAKNESS,LOW BACK PAIN,NO INJURY PER EMS Time Seen by Provider: 06/05/22 07:01 Source: patient and EMS Mode of arrival: EMS Limitations: no limitations History of Present Illness HPI Narrative: 51-year-old female came in for evaluation of back pain. Patient recently diagnosed with C diff due to long use of Bactrim for kidney related issue, patient develop C diff currently she is on oral vancomycin, patient has been having abdominal pain and diarrhea, patient is feeling weak as a result bilateral legs give out and patient fell down hitting her mid back complaining of back pain. Patient was picked up by EMS gave a different story that she has been having chronic back pain and did not fall down. [facility] record was requested. Related Data Home Medications Medication Instructions Recorded Confirmed amlodipine 10 mg tablet 10 mg PO DAILY 07/07/20 12/30/21 aspirin 81 mg tablet,delayed 81 mg PO DAILY 07/07/20 12/30/21 release bupropion HCl 300 mg 24 hr tablet, 300 mg PO DAILY 07/07/20 12/30/21 extended release chlorthalidone 25 mg tablet 25 mg PO DAILY 07/07/20 12/30/21 finasteride 5 mg tablet 5 mg PO DAILY 07/07/20 12/30/21 insulin aspart U-100 100 unit/mL See Rx Instructions .Route .COMPLEX 07/07/20 12/30/21 (3 mL) subcutaneous pen (Novolog Flexpen U-100 Insulin aspart) lisinopril 5 mg tablet 5 mg PO DAILY 07/07/20 12/30/21 loratadine 10 mg tablet 10 mg PO DAILY 07/07/20 12/30/21 lorazepam 2 mg tablet 1 tab PO TID PRN Anxiety 07/07/20 12/30/21 nabumetone 500 mg tablet 500 tab PO BID 07/07/20 12/30/21 nystatin 100,000 unit/gram topical 1 applic topical QID 07/07/20 12/30/21 powder ([facility]) oxybutynin chloride 10 mg 10 mg PO DAILY 07/07/20 12/30/21 tablet,extended release 24 hr propranolol 120 mg capsule,24 120 mg PO DAILY 07/07/20 12/30/21 hr,extended release rosuvastatin 40 mg tablet 40 mg PO BEDTIME 07/07/20 12/30/21 zolpidem 10 mg tablet 10 mg PO BEDTIME PRN Insomnia 07/07/20 12/30/21 fluticasone propionate 110 2 puff inhalation BID 04/08/21 12/30/21 mcg/actuation HFA aerosol inhaler (Flovent HFA) gabapentin 300 mg capsule 900 mg PO TID 04/08/21 12/30/21 semaglutide 7 mg tablet (Rybelsus) 1 tab PO DAILY 04/08/21 12/30/21 Lactobacillus rhamnosus GG 15 2 cap PO DAILY 12/30/21 12/30/21 billion cell sprinkle capsule (Culturelle) doxycycline hyclate 100 mg capsule 1 cap PO Q12H 12/30/21 12/30/21 ergocalciferol (vitamin D2) 1,250 50,000 unit PO QWEEK 12/30/21 12/30/21 mcg (50,000 unit) capsule (Vitamin D2) fluticasone propionate 50 1 spray intranasal DAILY 12/30/21 12/30/21 mcg/actuation nasal spray,suspension insulin degludec 100 unit/mL (3 80 unit subcut BEDTIME 12/30/21 12/30/21 mL) subcutaneous pen (Tresiba FlexTouch U-100 insulin) lamotrigine 25 mg tablet 200 mg PO BEDTIME 12/30/21 12/30/21 omeprazole 20 mg capsule,delayed 1 cap PO DAILY 12/30/21 12/30/21 release oxycodone 20 mg tablet 20 mg PO Q4H PRN Pain 12/30/21 12/30/21 oxycodone 30 mg tablet,crush 1 tab PO BID 12/30/21 12/30/21 resistant,extended release 12 hr (OxyContin) simethicone 125 mg chewable tablet mg PO BID PRN Gastric Reflux 12/30/21 Previous Rx's Medication Instructions Recorded metoclopramide HCl 10 mg tablet 10 mg PO Q6H PRN nausea and 02/14/22 (Reglan) vomiting #10 tabs ondansetron 4 mg disintegrating 4 mg PO Q8H PRN nausea and 02/14/22 tablet vomiting #7 tabs fidaxomicin 200 mg tablet 200 mg PO BID 10 days #20 tabs 05/13/22 Allergies Allergy/AdvReac Type Severity Reaction Status Date / Time metformin Allergy Severe Unknown Verified 07/07/20 08:27 acetaminophen [From TYLENOL] Allergy Unknown HIVES Verified 07/07/20 08:27 clonazepam [From KLONOPIN] Allergy Unknown HIVES Verified 07/07/20 08:27 Review of Systems Review of Systems: All other systems are reviewed and are negative Constitutional: Reports as per HPI and Reports no additional constitutional complaints Eyes: Reports as per HPI and Reports no additional eye complaints Reports system reviewed and no additional complaints, except as documented Cardiovascular: Reports as per HPI and Reports no additional cardiovascular complaints Respiratory: Reports as per HPI and Reports no additional respiratory complaints Gastrointestinal: Reports as per HPI and Reports no additional gastrointestinal complaints Genitourinary: Reports no additional female genitourinary complaints Musculoskeletal: Reports no additional musculoskeletal complaints Skin/Breast: Reports system reviewed and no additional complaints, except as docu Psychiatric: Reports no additional psychiatric complaints Endocrine: Reports no additional endocrine complaints Hematologic/Lymphatic: Reports no additional hematologic/lymphatic complaints Allergic/Immunologic: Reports no additional allergic/immunologic complaints Reports system reviewed and no additional complaints, except as documented and Reports Abnormal speech present [facility] Past Medical History Medical History Abdominal pain Agoraphobia Anxiety Asthma Back pain Borderline personality disorder Chronic back pain Chronic kidney disease Depression Diabetes Hypercalcemia Hypertension Lower back pain Obesity Urinary incontinence Surgical History H/O oophorectomy History of appendectomy Social History Social History Household Members: Caregiver Housing: Apartment Do you presently have visiting nurse or other home services: Yes Patient Tobacco Use Status: Tobacco use Unknown Tobacco use type: Cigarette Cigarette Packs Per Day: 1 Cigarettes Per Day: 20.0 Advance Directives: Yes Advance Directives on File: Yes Advance Directives Date on File: 04/09/21 service: No Current occupational status: disabled Physical Exam Vital Signs: Vital Signs: Last Vital Signs Pulse 101 H 06/05/22 11:27 Resp 20 06/05/22 11:27 BP 177/95 H 06/05/22 11:27 Pulse Ox 95 06/05/22 11:27 O2 Del Method 06/05/22 11:27 BMI result Body Mass Index 41.4 Vital signs have been reviewed as appeared to be correct. Blood pressure normal. Heart rate normal. Respiration rate normal. Temperature normal. Oxygen saturation normal. Appearance: Alert. Oriented X3. No acute distress. Head: Normal external exam. Normocephalic. Atraumatic. No Butler signs noted. No raccoon eyes noted Eyes: PERRLA. EOMI. Conjunctiva and sclera normal. Eyelids normal. ENT: TM's Normal. Pharynx normal. Uvula midline. Moist mucous membranes. No trismus noted. No drooling noted. No muffled voice noted. Neck: Normal inspection. Neck supple. FROM. No adenopathy. Thyroid Normal. No meningeal signs. No neck mass noted. CVS: Normal heart rate and rhythm. Heart sound normal. No murmurs noted. Pulses normal throughout. Respiratory: No respiratory distress. Painless inspiration. Breath sounds normal. No wheezes/rales/rhonchi noted. Chest nontender. No accessory muscle usage noted or decreased air movement noted. Abdomen: Soft and nontender. Bowel sounds normal in all 4 quadrants. No distention noted. No organomegaly noted. No visible injury noted. Back: No CVA tenderness. Full range of motion noted. Mid back pain at L1/T12 level no step-off, no deformity. Skin: Skin warm and dry. Normal skin color. Normal skin turgor. No rashes/lesions/lacerations noted. Extremities: No lower extremity edema. Extremities exhibit normal range of motion. Extremities nontender. Neuro: Oriented X 3. Cranial nerve exam: II-XII are grossly intact No motor deficit. No sensory deficit. Reflexes normal. Course Reevaluation(s) Reevaluation #1: 51-year-old female came in for acute on chronic back pain, patient fell yesterday causing more back pain, patient was given Dilaudid in the emergency department with partial control of the pain, patient was offered get social work therapist involved for placement to a rehab patient adamantly refuse the rehab placement, does not want to go home would like to be admitted, reviewing patient's labs and history there is no good medical indication for admission, patient now is claiming that she is suicidal and if she goes home she will overdose. Will keep the patient in the ED for N evaluation. Will start physician observation. Time: 11:40 Reevaluation #2: Patient is more calm now, feel safe to be discharged home, stated that she made her SI statement because she was mad and wanted pain medication, patient now feel no SI, no HI, family member will pick her up to go home. No need at this pt for [facility] consultation. Chronic leukocytosis patient is pre-existing C diff taking vancomycin p.o.. No abdominal pain. Able to tolerate p.o. intake. Patient was instructed to follow up with [facility] and PCP. Time: 12:59 - Fall Lab Data Attestation: I reviewed the patient's lab results. Result diagrams: 06/05/22 08:31 06/05/22 08:31 Labs: Lab Results 06/05/22 06/05/22 06/05/22 Range/Units 08:31 08:31 10:35 WBC 15.4 H (4.8-10.8) X10*3/uL RBC 4.68 (4.20-5.50) X10*6/uL Hgb 13.6 (12.0-16.0) g/dl Hct 39.8 (37.0-47.0) % MCV 85.0 (80.0-98.0) fL MCH 29.1 (27.0-33.0) pg MCHC 34.2 (31.0-35.0) g/dl RDW 13.7 (11.0-16.0) % Plt Count 435 H (160-400) X10*3/uL MPV 9.3 L (9.4-12.3) fL Immature Gran % (Auto) 0.5 H (0.0-0.4) % Neut % (Auto) 78.6 H (45-73) % Lymph % (Auto) 13.8 L (20-40) % Kenton % (Auto) 4.8 (2-11) % Eos % (Auto) 1.7 (0-4) % Baso % (Auto) 0.6 (0-2) % Lymph # (Auto) 2.1 (1.2-4.9) X10*3/uL Kenton # (Auto) 0.7 (0.1-1.2) X10*3/uL Eos # (Auto) 0.3 (0.0-0.4) X10*3/uL Baso # (Auto) 0.1 (0.0-0.2) X10*3/uL Abs Immat Gran (auto) 0.07 H (0.00-0.03) X10*3/uL Absolute Neuts (auto) 12.1 H (2.0-8.3) x10*3/uL Absolute Nucleated RBC 0.000 (0.0-0.012) X10*3/uL Nucleated RBC % (auto) 0.0 (0.0-0.2) /100WBC Sodium 132 L (135-145) mmol/L Potassium 4.9 (3.3-5.1) mmol/L Chloride 97 (96-108) mmol/L Carbon Dioxide 20 L (22-29) mmol/L Anion Gap 20 (12-20) BUN 18 H (9-16) mg/dL Creatinine 0.81 (0.5-1.4) mg/dL Estim Creat Clear Calc 113.9 Estimated GFR > 60 Random Glucose 230 H (60-115) mg/dL Calcium 10.0 (8.4-10.2) mg/dL Total Bilirubin 0.3 (0.0-1.0) mg/dL Direct Bilirubin < 0.2 (0.0-0.5) mg/dL AST 16 (5-31) U/L ALT 19 (0-31) U/L Alkaline Phosphatase 153 H D (39-117) U/L Total Protein 7.6 (6.5-8.0) g/dL Albumin 4.4 (3.5-5.0) g/dL Lipase 58 (8-78) U/L COVID-19 (ETHAN) Negative (Negative) COVID-19 Clin Com See Note Imaging Data Lumbar/thoracic spine x-ray: Attestation: I personally reviewed and interpreted this imaging study as follows: Radiologist's impression: No acute finding overall limited study due to body habitus. Discharge Plan Discharge Clinical Impression: Acute exacerbation of chronic low back pain, Suicidal ideation Patient Disposition: Home, Self-Care Instructions: Chronic Pain (ED) Prescriptions: No Action nystatin [Nyamyc] 100,000 unit/gram powder 1 applic topical QID insulin aspart U-100 [Novolog Flexpen U-100 Insulin] 100 unit/mL (3 mL) insulin pen See Rx Instructions .ROUTE .COMPLEX Protocol: Insulin Correction Scale Less than or equal to 110 ---- Give (units): 0 111 to 150 Give (units): 0 151 to 200 Give (units): 2 201 to 250 Give (units): 4 251 to 300 Give (units): 6 301 to 350 Give (units): 8 Greater than 350 Give (units): 10 Call MD if Blood Glucose > : 350 Rx Instructions: Patient did not know her scale other than the fact that it changed recently oxybutynin chloride 10 mg tablet extended release 24hr 10 mg PO DAILY chlorthalidone 25 mg tablet 25 mg PO DAILY aspirin 81 mg tablet,delayed release (DR/EC) 81 mg PO DAILY lorazepam 2 mg tablet 1 tab PO TID PRN (Reason: Anxiety) amlodipine 10 mg tablet 10 mg PO DAILY lisinopril 5 mg tablet 5 mg PO DAILY propranolol 120 mg capsule,extended release 24 hr 120 mg PO DAILY zolpidem 10 mg tablet 10 mg PO BEDTIME PRN (Reason: Insomnia) finasteride 5 mg tablet 5 mg PO DAILY loratadine 10 mg tablet 10 mg PO DAILY nabumetone 500 mg tablet 500 tab PO BID rosuvastatin 40 mg tablet 40 mg PO BEDTIME bupropion HCl 300 mg tablet extended release 24 hr 300 mg PO DAILY gabapentin 300 mg capsule 900 mg PO TID Rybelsus 7 mg tablet 1 tab PO DAILY Flovent HFA 110 mcg/actuation HFA aerosol inhaler 2 puff inhalation BID doxycycline hyclate 100 mg capsule 1 cap PO Q12H lamotrigine 25 mg tablet 200 mg PO BEDTIME omeprazole 20 mg capsule,delayed release(DR/EC) 1 cap PO DAILY simethicone 125 mg tablet,chewable PO BID PRN (Reason: Gastric Reflux) ergocalciferol (vitamin D2) [Vitamin D2] 1,250 mcg (50,000 unit) capsule 50,000 unit PO QWEEK fluticasone propionate 50 mcg/actuation spray,suspension 1 spray intranasal DAILY oxycodone 20 mg tablet 20 mg PO Q4H PRN (Reason: Pain) Culturelle 15 billion cell capsule, sprinkle 2 cap PO DAILY Tresiba FlexTouch U-100 100 unit/mL (3 mL) insulin pen 80 unit subcut BEDTIME oxycodone [OxyContin] 30 mg tablet,oral only,ext.rel.12 hr 1 tab PO BID ondansetron 4 mg tablet,disintegrating 4 mg PO Q8H PRN (Reason: nausea and vomiting) Qty: 7 0RF metoclopramide HCl [Reglan] 10 mg tablet 10 mg PO Q6H PRN (Reason: nausea and vomiting) Qty: 10 0RF fidaxomicin 200 mg tablet 200 mg PO BID 10 Days Qty: 20 0RF Referrals: Evelyn Bui MD [Primary Care Provider] -
[2022-06-05 07:15] VITALS: BP 154/110; BP 181/88; PULSE 116; PULSE 124; RESP 18; O2SAT 97; O2SAT 98; BMI 41.4
[2022-06-05 07:28] VITALS: BP 181/88; PULSE 119; RESP 22; O2SAT 95
[2022-06-05] MEDS: 0.9 % Sodium Chloride 1,000 ML 999 ML IV (07:44)
[2022-06-05 08:36] LABS: Basophils Absolute Auto 0.1 X10*3/uL (0.0-0.2); Basophils Percent Auto 0.6 % (0-2); Eosinophils Absolute Auto 0.3 X10*3/uL (0.0-0.4); Eosinophils Percent Auto 1.7 % (0-4); Hematocrit 39.8 % (37.0-47.0); Hemoglobin 13.6 g/dl (12.0-16.0); Imm Gran Abs Auto 0.07 X10*3/uL (0.00-0.03); Imm Gran Pct Auto 0.5 % (0.0-0.4); Lymphocytes Absolute Auto 2.1 X10*3/uL (1.2-4.9); Lymphocytes Percent Auto 13.8 % (20-40); MANUAL DIFF FLAG NO; Mean Corpuscular HGB Conc 34.2 g/dl (31.0-35.0); Mean Corpuscular Hemoglobin 29.1 pg (27.0-33.0); Mean Platelet Volume 9.3 fL (9.4-12.3); Monocytes Absolute Auto 0.7 X10*3/uL (0.1-1.2); Monocytes Percent Auto 4.8 % (2-11); Neutrophils Absolute Auto 12.1 x10*3/uL (2.0-8.3); Neutrophils Percent Auto 78.6 % (45-73); Platelet Count 435 X10*3/uL (160-400); Red Blood Count 4.68 X10*6/uL (4.20-5.50); Red Cell Distribution Width 13.7 % (11.0-16.0); White Blood Count 15.4 X10*3/uL (4.8-10.8)
[2022-06-05 09:01] LABS: Alanine Aminotransferase 19 U/L (0-31); Albumin Level 4.4 g/dL (3.5-5.0); Alkaline Phosphatase 153 U/L (39-117); Anion Gap 20 (12-20); Aspartate Amino Transferase 16 U/L (5-31); Bilirubin Direct < 0.2 mg/dL (0.0-0.5); Bilirubin Total 0.3 mg/dL (0.0-1.0); Blood Urea Nitrogen 18 mg/dL (9-16); Carbon Dioxide 20 mmol/L (22-29); Chloride 97 mmol/L (96-108); Creatinine Clr Calc Pharmacy 113.9; Estimated Glomerular Filt Rate > 60; Glucose Random 230 mg/dL (60-115); Lipase 58 U/L (8-78); Potassium 4.9 mmol/L (3.3-5.1); Sodium 132 mmol/L (135-145); Total Protein 7.6 g/dL (6.5-8.0)
[2022-06-05] MEDS: HYDROmorphone HCl 2 MG/ML VIAL IVPUSH (09:15)
[2022-06-05 11:04] LABS: COVID-19 Test Negative (Negative)
[2022-06-05 11:27] VITALS: BP 177/95; PULSE 101; RESP 20; O2SAT 95
--- NOTE | 2022-06-05 12:59 | PC.NURSE ---
Provider and nurse present for a conversation with patient; she does not plan on any self harm at this time and wants to go home as no one is giving her the proper meds . [facility] called and referral cancelled. pt has a ride home and will be discharged.
== END 2022-06-05 13:14 | disposition home or self-care (01) ==
PROVIDERS: Emergency Provider Emergency Medicine; PCP Internal Medicine
DX: S39.92XA Unspecified injury of lower back, initial encounter (principal); S30.0XXA Contusion of lower back and pelvis, initial encounter; R45.851 Suicidal ideations; M54.6 Pain in thoracic spine; W01.0XXA Fall on same level from slipping, tripping and stumbling without subsequent striking against object, initial encounter; Y93.9 Activity, unspecified; Y92.9 Unspecified place or not applicable; Y99.9 Unspecified external cause status; Z20.822 Contact with and (suspected) exposure to COVID-19; Z79.899 Other long term (current) drug therapy; F17.210 Nicotine dependence, cigarettes, uncomplicated; Z71.6 Tobacco abuse counseling
CPT/HCPCS: 36415; 72070; 72100; 80048; 80076; 83690; 85025; 87635; 99284; J1170

== ENCOUNTER 2022-06-28 05:08 | Emergency (ER) | payer OTHER, SELFPAY ==
[2022-06-28 05:16] VITALS: BP 141/58; BP 168/70; PULSE 102; PULSE 89; RESP 18; TEMP 37.2; O2SAT 98; O2SAT 99; BMI 39.5
[2022-06-28 06:07] LABS: Glucose, Whole Blood 257 mg/dL (60-115)
[2022-06-28 06:39] LABS: Basophils Absolute Auto 0.1 X10*3/uL (0.0-0.2); Basophils Percent Auto 0.4 % (0-2); Eosinophils Absolute Auto 0.2 X10*3/uL (0.0-0.4); Eosinophils Percent Auto 1.5 % (0-4); Hematocrit 36.9 % (37.0-47.0); Hemoglobin 12.3 g/dl (12.0-16.0); Imm Gran Pct Auto 0.6 % (0.0-0.4); Lymphocytes Absolute Auto 1.4 X10*3/uL (1.2-4.9); Lymphocytes Percent Auto 8.9 % (20-40); MANUAL DIFF FLAG NO; Mean Corpuscular HGB Conc 33.3 g/dl (31.0-35.0); Mean Corpuscular Hemoglobin 29.7 pg (27.0-33.0); Mean Corpuscular Volume 89.1 fL (80.0-98.0); Mean Platelet Volume 9.2 fL (9.4-12.3); Monocytes Absolute Auto 0.5 X10*3/uL (0.1-1.2); Monocytes Percent Auto 3.2 % (2-11); Neutrophils Absolute Auto 13.2 x10*3/uL (2.0-8.3); Neutrophils Percent Auto 85.4 % (45-73); Platelet Count 330 X10*3/uL (160-400); Red Blood Count 4.14 X10*6/uL (4.20-5.50); Red Cell Distribution Width 14.4 % (11.0-16.0); White Blood Count 15.4 X10*3/uL (4.8-10.8)
--- OUTSIDE RECORDS SUMMARY | 2022-06-28 06:59 | XMS_ITS | Continuity of Care Document ---
:1970 Author Organization [facility] Address [address] [place] [id number] Care Team Providers Name Role Phone Sobia Khalil DO Primary Care Physician Encounter [facility] [place] Date(s): 01/22/20 - 01/23/[address] [id number] [facility] Discharge Disposition: Transfer to [facility] Facility Attending Physician: Katie Sigala MD Admitting Physician: Katie Sigala MD Referring Physician: Not on Staff, Referring MD Allergies, Adverse Reactions, Alerts Substance Reaction Severity Status acetaminophen extremely itchy Active Immunizations Given and Recorded Vaccine Date Status Refusal Reason Hepatitis B Vaccine (old term) 03/22/08 Given Medications Albuterol 3 mL, Neb, Every 4 hours, PRN Wheezing/Shortness of Breath, 0 Refills, Maintenance, Inhalation Solution Start Date: 07/12/13 Status: Orderedamlodipine 10 mg oral tablet 1 tablet = 10 mg, By Mouth, Daily, 0 Refills, Maintenance Start Date: 07/10/13 Status: OrderedAspirin Tablet 81 mg, By Mouth, Daily, Maintenance, 07/12/13 12:36:00 Start Date: 07/12/13 Status: Orderedbupropion 150 mg oral tablet, extended release 1 tablet = 150 mg, By Mouth, 2 times a day, # 60 tablet, 0 Refills, Maintenance, SR Tablet, 1 tabletBy Mouth 2 times a day Start Date: 07/17/13 Status: Orderedchlorthalidone 25 mg oral tablet 25 mg, 1, tablet, By Mouth, Daily, # 30 tablet, Refills 0, Maintenance, 08/08/18 14:07:16 EST Start Date: 08/08/18 Status: OrderedCrestor 5 mg oral tablet 1 tablet = 5 mg, By Mouth, Daily at bedtime, 0 Refills, Maintenance, 08/03/18 9:19:34 EST Start Date: 08/03/18 Status: OrderedDocusate = 100 mg, 2 times a day, 0 Refills, Maintenance, 01/23/20 18:15:00 EDT Start Date: 01/23/20 Status: OrderedDoxycycline 1 tab, By Mouth, 2 times a day, Maintenance, 08/03/18 9:34:52 EST Start Date: 08/03/18 Status: Orderedfinasteride 5 mg oral tablet 1 tablet = 5 mg, By Mouth, Daily, 0 Refills, Maintenance, 01/23/20 18:17:00 EDT, Tablet Start Date: 01/23/20 Status: OrderedFlonase 50 mcg/inh nasal spray 1 sprays, Inhalation, Daily, PRN Other, 0 Refills, Maintenance, 09/15/17 13:21:37 EST Start Date: 09/15/17 Status: OrderedFlovent Diskus 250 mcg/inh inhalation powder 1 puffs, Inhalation, 2 times a day, 0 Refills, Maintenance, 01/23/20 18:19:00 EDT, Powder Start Date: 01/23/20 Status: Orderedgabapentin 300 mg oral capsule 300 mg, 1, capsule, By Mouth, 3 times a day, Refills 0, Maintenance, 08/03/18 9:34:19 EST Start Date: 08/03/18 Status: OrderedIbuprofen 800 mg, By Mouth, 3 times a day, Refills 0, Maintenance, 09/15/17 13:20:19 EST Start Date: 09/15/17 Status: OrderedKalexate See Instructions, 4 teaspoons with 4ounces of water 2x daily, 0 Refills, Maintenance, 08/03/18 9:37:17 EST Start Date: 08/03/18 Status: OrderedLaMICtal 200 mg oral tablet 1 tablet = 200 mg, By Mouth, Daily at bedtime, 0 Refills, Maintenance, 09/15/17 13:26:30 EST Start Date: 09/15/17 Status: OrderedLamotrigine 200 mg, By Mouth, Daily, Refills 0, Maintenance, 01/23/20 18:18:00 EDT Start Date: 01/23/20 Status: OrderedLantus Solostar Pen 100 units/mL subcutaneous solution = 65 units, Subcutaneous Injection, Daily, 0 Refills, Maintenance, 09/15/17 13:23:13 EST Start Date: 09/15/17 Status: OrderedLoratadine 10 mg, By Mouth, Daily, Refills 0, Maintenance, 01/23/20 18:19:00 EDT Start Date: 01/23/20 Status: OrderedLORazepam 2 mg oral tablet 2 tablet = 4 mg, By Mouth, 3 times a day, PRN for anxiety, 0 Refills, Maintenance, 08/03/18 9:22:52 EST, Tablet Start Date: 08/03/18 Status: Orderednabumetone 500 mg oral tablet 1 tablet = 500 mg, By Mouth, 2 times a day, 0 Refills, Maintenance, 01/23/20 18:17:00 EDT, Tablet Start Date: 01/23/20 Status: OrderedNovoLOG FlexPen 100 units/mL subcutaneous solution See Instructions, Subcutaneous Injection, Use as directed for Diabetes mellitus type 1. takes 36units with breakfast and dinner; 15 units at lunch, # 3 each, 5 Refills, Maintenance, 09/15/17 13:23:26 EST Start Date: 09/15/17 Stop Date: 10/15/17 Status: OrderedNystop 109886 u/gm powder 1 applicator, Topically, 3 times a day, 0 Refills, Maintenance, 09/15/17 13:21:19 Start Date: 09/15/17 Status: OrderedOxybutynin = 10 mg, By Mouth, Daily, 0 Refills, Maintenance, 01/23/20 18:16:00 EDT Start Date: 01/23/20 Status: Orderedoxycodone 10 mg oral tablet 1 tablet = 10 mg, By Mouth, Daily, PRN Pain , Moderate Pain , Severe, 0 Refills, Maintenance, 07/17/13 10:17:17 EDT, Tablet Start Date: 07/17/13 Status: OrderedOxyCONTIN 15 mg oral tablet, extended release 1 tablet = 15 mg, By Mouth, 2 times a day, 0 Refills, Maintenance, 08/03/18 9:30:51 EST Start Date: 08/03/18 Status: OrderedProAir HFA 90 mcg/inh inhalation aerosol with adapter 2, puffs, Inhalation, 4 times a day, PRN, Refills 0, Maintenance, 09/15/17 13:22:34 EST Start Date: 09/15/17 Status: OrderedPropranolol 120 mg, By Mouth, 2 times a day, Refills 0, Maintenance, 08/03/18 9:33:21 EST Start Date: 08/03/18 Status: Orderedrosuvastatin 40 mg oral tablet 1 tablet = 40 mg, By Mouth, Daily, 0 Refills, Maintenance, 08/08/18 14:07:42 EST Start Date: 08/08/18 Status: OrderedVitamin D3 oral tablet = 2,000 units, By Mouth, 2 times a day, 0 Refills, Maintenance, 08/03/18 9:26:14 EST Start Date: 08/03/18 Status: OrderedWellbutrin XL 300 mg/24 hours oral tablet, extended release 1 tablet = 300 mg, By Mouth, Every 24 hours, 0 Refills, Maintenance, 09/15/17 13:20:51 Start Date: 09/15/17 Status: Orderedzolpidem 10 mg oral tablet 1 tablet = 10 mg, By Mouth, Daily at bedtime, PRN for sleep, # 30 tablet, 0 Refills, Maintenance, Tablet Start Date: 07/17/13 Stop Date: 08/16/13 Status: Ordered Problem List Condition Effective Dates Status Health Status Informant Depressive disorder(Confirmed) Active Tobacco dependence syndrome(Confirmed) Active Urinary incontinence(Confirmed) Active Vital Signs Most recent to oldest [Reference 1 2 3 Range]: Oxygen Saturation [94-100 %] 100 % 96 % 93 % (01/23/20 1:36 PM) (01/23/20 8:11 AM) *L* (01/23/20 4:30 AM) Pulse Rate [55-90 bpm] 109 bpm 110 bpm 109 bpm *H* *H* *H* (01/23/20 1:36 PM) (01/23/20 8:11 AM) (01/23/20 4:30 A M) Blood Pressure [90-138/55-84 mm 108/53 mm Hg 151/89 mm Hg 151/89 mm Hg Hg] (01/23/20 1:36 PM) *H* *H* (01/23/20 8:40 AM) (01/23/20 8:11 AM ) Respiratory Rate [16-30 br/min] 18 br/min 16 br/min 20 br/min (01/23/20 3:10 PM) (01/23/20 1:36 PM) (01/23/20 12:26 PM) Temperature [96.8-100.4 DegF] 98.6 DegF 98.1 DegF 99 .1 DegF (01/23/20 1:36 PM) (01/23/20 4:30 AM) (01/23/20 12:08 AM) Mode of Delivery (Oxygen) Room air Room air Room a ir (01/23/20 1:36 PM) (01/23/20 8:11 AM) (01/23/20 4:30 A M) Blood pressure sites Arm, right Arm, right Arm, right (01/23/20 1:36 PM) (01/23/20 4:30 AM) (01/23/20 12:08 AM) Temperature Route Oral Oral Oral (01/23/20 1:36 PM) (01/23/20 4:30 AM) (01/23/20 12:08 AM) Social History Social History Type Response Smoking Status Current every day smoker entered on: 09/15/17 Sex
--- OUTSIDE RECORDS SUMMARY | 2022-06-28 06:59 | XMS_ITS | Continuity of Care Document ---
:1970 Author Organization [facility] Address [address] [place] [address]- Care Team Providers Name Role Phone Sobia Khalil DO Primary Care Physician Encounter [facility] Date(s): 05/27/22 - 05/29/[address] [address] Discharge Disposition: A-D/C Home Attending Physician: Panda Strange DO Admitting Physician: Landy Salvador MD Referring Physician: Not on Staff, Referring MD Allergies, Adverse Reactions, Alerts Substance Reaction Severity Status acetaminophen extremely itchy Active shellfish1 Active Tylenol Active Fish2 Active MetFORMIN (Eqv-Glumetza) Active 1patient reports itchy/tingling [id number] reports itchy/tingling throat Immunizations Given and Recorded Vaccine Date Status Refusal Reason SARS-CoV-2 (COVID-19) mRNA-1273 vaccine 08/03/21 Recorded SARS-CoV-2 (COVID-19) mRNA-1273 vaccine 12/23/20 Recorded SARS-CoV-2 (COVID-19) mRNA-1273 vaccine 11/26/20 Recorded influenza virus vaccine, inactivated 07/07/21 Given influenza virus vaccine, inactivated 06/20/20 Given influenza virus vaccine, inactivated 07/06/16 Recorded influenza virus vaccine, inactivated 06/05/15 Recorded pneumococcal 23-valent vaccine1 05/26/20 Given tetanus/diphtheria/pertussis, acel(Tdap) 09/03/15 Recorde d Hepatitis B Vaccine (old term) 03/22/08 Given 1Result Comment: vial discarded accidenetally and lot number and exp not entered Medications albuterol 0.083% inhalation solution 3 mL = 2.5 mg, Neb, Every 8 hours, PRN as needed for wheezing, Maintenance, 04/12/22 13:09:00 EDT, Solution, ; Start Date: 04/12/22 Status: OrderedamLODIPine 5 mg oral tablet 5 mg, Tablet, By Mouth, 05/29/22 9:00:00 EDT Start Date: 05/29/22 Stop Date: 05/29/22 Status: CompletedamLODIPine 5 mg oral tablet 5 mg, 1, tablet, By Mouth, Daily, # 30 tablet, Refills 0, Tot. Refills 0, Maintenance, 04/18/22 9:57:00 EDT, Route to Pharmacy Electronically, [id number], Partial fill upon patient request if the prescription is for a schedule II opioid . Start Date: 04/18/22 Status: OrderedAspirin Low Dose 81 mg oral delayed release tablet 1 tablet = 81 mg, By Mouth, Daily, 0 Refills, Maintenance, 06/19/20 21:23:00 EDT, EC Tablet Start Date: 06/19/20 Status: OrderedAtivan 2 mg oral tablet 1 tablet = 2 mg, By Mouth, 3 times a day, 0 Refills, Maintenance, 11/18/21 11:34:00 EST, Tablet Start Date: 11/18/21 Status: OrderedbuPROPion 300 mg/24 hours (XL) oral tablet, extended release 1 tablet = 300 mg, By Mouth, Daily, Maintenance, 07/06/21 16:29:00 EDT, ER Tablet Start Date: 07/06/21 Status: OrderedCulturelle Health and Wellness oral capsule 1 capsule, By Mouth, 2 times a day, Maintenance, 02/08/22 10:59:00 EDT, ; Start Date: 02/08/22 Status: OrderedDeep Sea Nasal 0.65% nasal spray 2 sprays, Nares, Both, Every 2 hours, PRN dry nares, Maintenance, 04/12/22 13:10:00 EDT, ; Start Date: 04/12/22 Status: OrderedDocusate/Senna Tablet 1 tablet, By Mouth, 2 times a day, PRN Constipation, 0 Refills, Maintenance, 11/18/21 11:32:00 EST, Tablet, ; Start Date: 11/18/21 Status: Orderedfinasteride 5 mg oral tablet 1 tablet = 5 mg, By Mouth, Daily, 0 Refills, Maintenance, 01/26/20 10:51:00 EDT, Tablet Start Date: 01/26/20 Status: Orderedgabapentin 300 mg oral capsule 600 mg, 2, capsule, By Mouth, Daily, in the afternoon, Maintenance, 04/12/22 13:04:00 EDT, ; Start Date: 04/12/22 Status: Orderedgabapentin 300 mg oral capsule 3 capsules, By Mouth, 2 times a day, am & at bed, Refills 0, Maintenance, 06/08/21 13:28:00 EDT Start Date: 06/08/21 Status: Orderedlamotrigine 25 mg oral tablet 50 mg, 2, tablet, By Mouth, Daily at bedtime, Refills 0, Maintenance, 11/18/21 11:36:00 EST, ; Start Date: 11/18/21 Status: Orderedloratadine 10 mg oral tablet 10 mg, 1, tablet, By Mouth, Daily, Maintenance, 07/06/21 16:33:00 EDT Start Date: 07/06/21 Status: Orderedmetoclopramide 10 mg oral tablet 1 tablet = 10 mg, By Mouth, 2 times a day, PRN Nausea, Maintenance, 04/12/22 13:07:00 EDT, ; Start Date: 04/12/22 Status: OrderedmetroNIDAZOLE 500 mg oral tablet 1 tablet = 500 mg, By Mouth, 3 times a day, # 30 tablet, 0 Refills, Maintenance, 05/29/22 12:05:00 EDT, Tablet, Partial fill upon patient request if the prescription is for a schedule II opioid drug. Start Date: 05/29/22 Stop Date: 06/08/22 Status: OrderedMiraLax oral powder for reconstitution = 17 Gm, By Mouth, Daily, PRN as needed, dissolve in water before taking, Maintenance, 04/12/22 13:09:00 EDT, REC Powder, ; Start Date: 04/12/22 Status: OrderedMultivit Therapeutic/Minerals Tablet 1 tablet, By Mouth, Daily, 0 Refills, Maintenance, 11/18/21 11:34:00 EST, Tablet, ; Start Date: 11/18/21 Status: OrderedNovoLOG FlexPen 100 units/mL injectable solution 4-12 UNITS, Subcutaneous Injection, 3 times a day before meals, 150-199= 4 units 200-249= 6 units 250-299= 8 units 300-349= 10 units 350-399= 12 units Call MD <70 or >400, Maintenance, 02/08/22 10:59:00 EDT, ; Start Date: 02/08/22 Status: OrderedNystop 718124 u/gm powder 1 application, Topically, 2 times a day, Maintenance, 04/12/22 13:06:00 EDT, Powder, ; Start Date: 04/12/22 Status: Orderedomeprazole 20 mg oral enteric coated capsule 1 capsule = 20 mg, By Mouth, Daily, Maintenance, 04/12/22 13:07:00 EDT, EC Capsule, ; Start Date: 04/12/22 Status: OrderedoxyCODONE 20 mg oral tablet 1 tablet = 20 mg, By Mouth, Every 4 hours, PRN as needed for pain, 0 Refills, Maintenance, 05/29/22 12:05:00 EDT, Tablet, Partial fill upon patient request if the prescription is for a schedule II opioid drug. Start Date: 05/29/22 Status: OrderedoxyCODONE 5 mg oral tablet 20 mg, Tablet, By Mouth, Every 4 hours, PRN for Pain , Severe, Routine, 05/28/22 10:01:00 EDT Start Date: 05/28/22 Stop Date: 05/29/22 Status: DiscontinuedOxyCONTIN 30 mg oral tablet, extended release 1 tablet = 30 mg, By Mouth, Every 12 hours, # 14 tablet, 0 Refills, Maintenance, 02/12/22 10:37:00 EDT, ER Table[facility], [facility], Partial fill upon patient request if the prescription is fora schedule II opioid drug., 172, cm, 02/10/22 18:... Start Date: 02/12/22 Stop Date: 02/19/22 Status: OrderedOxyCONTIN 40 mg oral tablet, extended release 40 mg, 1, tablet, By Mouth, Every 12 hours, Refills 0, Tot. Refills 0, Maintenance, 05/29/22 12:05:00 EDT, Partial fill upon patient request if the prescription is for a schedule II opioid drug. Start Date: 05/29/22 Status: OrderedProAir HFA 90 mcg/inh inhalation aerosol 2 puffs, Inhalation, PRN Wheezing/Shortness of Breath, every 4-6 hours, Maintenance, 04/12/22 13:12:00 EDT, ; Start Date: 04/12/22 Status: Orderedpropranolol 120 mg oral capsule, extended release 1 capsule = 120 mg, By Mouth, Daily, Maintenance, 07/06/21 16:35:00 EDT, CR Capsule Start Date: 07/06/21 Status: Orderedpropranolol 60 mg oral capsule, extended release 120 mg, CR Capsule, By Mouth, 05/29/22 9:00:00 EDT Start Date: 05/29/22 Stop Date: 05/29/22 Status: Completedrosuvastatin 40 mg oral tablet 1 tablet = 40 mg, By Mouth, Daily, 0 Refills, Maintenance, 06/19/20 21:23:00 EDT, Tablet Start Date: 06/19/20 Status: OrderedRybelsus 14 mg oral tablet 1 tablet = 14 mg, By Mouth, Daily, take at least 30 minutes before first food, beverage, or other oral meds, 0 Refills, Maintenance, 09/29/21 12:06:00 EST, Tablet, ; Start Date: 09/29/21 Status: Orderedsimethicone 125 mg oral tablet, chewable 1 tablet = 125 mg, Chew, 4 times a day, PRN as needed, Maintenance, 02/08/22 11:00:00 EDT, Chew Tablet, ; Start Date: 02/08/22 Status: Orderedtamsulosin 0.4 mg oral capsule 0.4 mg, 1, capsule, By Mouth, Daily at bedtime, # 30 capsule, Refills 0, Tot. Refills 0, Maintenance, 04/18/22 9:57:00 EDT, Route to Pharmacy Electronically, [id number], Partial fill upon patient request if the prescription is for a schedu... Start Date: 04/18/22 Stop Date: 05/18/22 Status: OrderedTresiba FlexTouch 100 units/mL subcutaneous solution 30-40 units, Subcutaneous Injection, Daily at bedtime, if sugar is below 250 = 30 units if sugar is above 250 = 40 units, Maintenance, 02/08/22 10:50:00 EDT, ; Start Date: 02/08/22 Status: OrderedVitamin D2 50,000 intl units (1.25 mg) oral capsule 1 capsule = 50,000 International_Units, By Mouth, Every 7 days, Maintenance, 02/08/22 10:59:00 EDT, ; Start Date: 02/08/22 Status: Orderedzolpidem 10 mg oral tablet 1 tablet = 10 mg, By Mouth, Daily at bedtime, PRN as needed for insomnia, 0 Refills, Maintenance, 05/23/20 15:48:00 EDT, Tablet Start Date: 05/23/20 Status: Ordered Problem List Condition Effective Dates Status Health Status Informant Allergic rhinitis(Confirmed) Active Anxiety disorder(Confirmed) Active Weakness(Confirmed) Active Bipolar illness(Confirmed) Active Cellulitis(Confirmed) Active Chronic back pain(Confirmed) Active CKD (chronic kidney Active disease)(Confirmed) Depressive disorder(Confirmed) Active FSGS (focal segmental Active glomerulosclerosis)(Confirmed) GERD (gastroesophageal reflux Active disease)(Confirmed) Hyperlipidemia(Confirmed) Active Hypertension(Confirmed) Active Insomnia(Confirmed) Active 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) Iron deficiency(Confirmed) Active Anxiety and depression(Confirmed) Active Morbid obesity(Confirmed) Active Obese class II(Confirmed) Active Overactive bladder(Confirmed) Active Tobacco dependence syndrome(Confirmed) Active Urinary incontinence(Confirmed) Active Vitamin D deficiency(Confirmed) Active Results Orders for Microbiology Reports Name Date Blood Culture 05/27/22 Blood Culture #2 05/27/22 Microbiology Reports TEST:Blood Culture, Second Order STATUS:Unauthenticated BODY SITE: SOURCE:Blood COLLECTED DATE/TIME:05/27/22 10:35 AMBlood Culture, Second Order SPECIMEN DESCRIPTION : BLOOD LAC SPECIAL REQUESTS : NONE CULTURE : NO GROWTH AFTER 48 HOURS REPORT STATUS : PRELIMINARY REPORT TEST:Blood Culture STATUS:Unauthenticated BODY SITE: SOURCE:Blood COLLECTED DATE/TIME:05/27/22 10:07 AMBlood Culture SPECIMEN DESCRIPTION : BLOOD RAC SPECIAL REQUESTS : NONE CULTURE : NO GROWTH AFTER 48 HOURS REPORT STATUS : PRELIMINARY REPORT Radiology Reports Exam Date Time Procedure Performing Provider Status 05/27/22 10:53 AM Chest 2 Views Frontal and Lat Moshe Sweet; Auth (Verified) Notes:(Chest 2 Views Frontal and Lat) Reason For Exam: Shortness of Breath, Fever;Other:RESULT: Chest 2 Views Frontal and Lat Chest 2 Views Frontal and Lat Hx of Present Illness: pt co vomiting and mid back pain for 2 day, hx of chronic back pain; Reason: Other:; Shortness of Breath, Fever; Clinical Question(s): Pneumonia COMPARISON: None. FINDINGS: LINES AND TUBES: None. LUNGS AND PLEURA: Clear lungs. Normal pulmonary vascularity. No pleural effusion. No pneumothorax. HEART, MEDIASTINUM AND BRIGHT: Heart is normal in size. Normal upper mediastinal and hilar contour. BONES AND SOFT TISSUES: No acute abnormality. IMPRESSION: No acute abnormality. WSN: [id number] Ordering Physician: Meka Brody Dictated By: Nicholas Duran MD Dictated Date/Time: 05/27/22 11:00 a Reviewed By: Nicholas Duran MD Signed By: Nicholas Duran MD Signed Date/Time: 05/27/22 11:00 am Transcribed By: LESLEE Transcribed Date/Time: 05/27/22 11:00 am Vital Signs Most recent to oldest 1 2 3 [Reference Range]: Height 173 cm 173 cm 173 cm (05/29/22 5:12 AM) (05/28/22 8:11 PM) (05/28/22 9:0 3 AM) Weight 117.4 kg 117.4 kg (05/28/22 9:03 AM) (05/28/22 8:48 AM) Oxygen Saturation [94-100 %] 98 % 100 % 100 % (05/29/22 5:12 AM) (05/28/22 8:11 PM) (05/28/22 2:0 0 PM) Pulse Rate [55-90 bpm] 76 bpm 74 bpm 77 bpm (05/29/22 9:16 AM) (05/29/22 5:12 AM) (05/28/22 8:1 1 PM) Body Mass Index [18.5-24.99] 39.23 39.23 *>HHI* *>HHI* (05/28/22 9:03 AM) (05/28/22 8:48 AM) Blood Pressure [90-138/55-84 mm 129/74 mm Hg 129/74 mm Hg 131/74 mm Hg Hg] (05/29/22 9:17 AM) (05/29/22 9:16 AM) (05/29/22 5:1 2 AM) Respiratory Rate [16-30 br/min] 18 br/min 16 br/min 16 br/min (05/29/22 9:18 AM) (05/29/22 5:12 AM) (05/29/22 3:3 0 AM) Temperature [96.8-100.4 DegF] 98.0 DegF 98.8 DegF 97 .9 DegF (05/29/22 5:12 AM) (05/28/22 8:11 PM) (05/28/22 2:0 0 PM) Mode of Delivery (Oxygen) Room air Room air Room a ir (05/29/22 5:12 AM) (05/28/22 8:11 PM) (05/28/22 2:0 0 PM) Blood pressure sites Arm, left Arm, right Arm, right (05/29/22 5:12 AM) (05/28/22 8:11 PM) (05/28/22 2:0 0 PM) Temperature Route Oral Oral Oral (05/29/22 5:12 AM) (05/28/22 8:11 PM) (05/28/22 2:0 0 PM) Dry Weight 117.4 kg 117.4 kg (05/28/22 9:03 AM) (05/28/22 8:48 AM) Social History Social History Type Response Smoking Status Never (less than 100 in life time) entered on: 05/13/22 Sex Note BHSPowerscribe , CIS S: TRANSCRIBE Nicholas Duran MD: VERIFY Event Display: Result: Authored Date: Chest 2 Views Frontal and Lat Hx of Present Illness: pt co vomiting and mid back pain for 2 day, hx of chronic back pain; Reason: Other:; Shortness of Breath, Fever; Clinical Question(s): Pneumonia COMPARISON: None. FINDINGS: LINES AND TUBES: None. LUNGS AND PLEURA: Clear lungs. Normal pulmonary vascularity. No pleural effusion. No pneumothorax. HEART, MEDIASTINUM AND BRIGHT: Heart is normal in size. Normal upper mediastinal and hilar contour. BONES AND SOFT TISSUES: No acute abnormality. IMPRESSION: No acute abnormality. WSN: [id number] Ordering Physician: Meka Brody Dictated By: Nicholas Duran MD Dictated Date/Time: 05/27/22 11:00 a Reviewed By: Nicholas Durna MD Signed By: Nicholas Duran MD Signed Date/Time: 05/27/22 11:00 am Transcribed By: LESLEE Transcribed Date/Time: 05/27/22 11:00 am Care Team PersonnelName: Simran Sobia Address: [address] [place] [address]
--- OUTSIDE RECORDS SUMMARY | 2022-06-28 06:59 | XMS_ITS | Continuity of Care Document ---
:1970 Author Organization [facility] Address [address] [place] [address]- Care Team Providers Name Role Phone Geovany AUSTIN, Maria Antonia Primary Care Physician [facility] [facility] Date(s): 12/30/21 - 12/30/[address] [address]- Discharge Disposition: A-D/C Walkout Attending Physician: Not on Staff, Attending MD Admitting Physician: Not on Staff, Admitting MD Referring Physician: Not on Staff, Referring MD Allergies, Adverse Reactions, Alerts Substance Reaction Severity Status acetaminophen extremely itchy Active Tylenol Active MetFORMIN (Eqv-Glumetza) Active Immunizations Given and Recorded Vaccine Date Status Refusal Reason SARS-CoV-2 (COVID-19) mRNA-1273 vaccine 08/03/21 Recorded SARS-CoV-2 (COVID-19) mRNA-1273 vaccine 12/23/20 Recorded SARS-CoV-2 (COVID-19) mRNA-1273 vaccine 11/26/20 Recorded influenza virus vaccine, inactivated 07/07/21 Given influenza virus vaccine, inactivated 06/20/20 Given pneumococcal 23-valent vaccine1 05/26/20 Given Hepatitis B Vaccine (old term) 03/22/08 Given 1Result Comment: vial discarded accidenetally and lot number and exp not entered Medications amLODIPine 10 mg oral tablet 1 tablet = 10 mg, By Mouth, Daily, # 30 tablet, 0 Refills, Maintenance, 06/19/20 21:23:00 EDT, Tablet Start Date: 06/19/20 Status: OrderedAspirin Low Dose 81 mg oral delayed release tablet 1 tablet = 81 mg, By Mouth, Daily, # 30 tablet, 0 Refills, Maintenance, 06/19/20 21:23:00 EDT, EC Tablet Start Date: 06/19/20 Status: OrderedAtivan 2 mg oral tablet 1 tablet = 2 mg, By Mouth, 3 times a day, 0 Refills, Maintenance, 11/18/21 11:34:00 EST, Tablet, Partial fill upon patient request if the prescription is for a schedule II opioid drug. Start Date: 11/18/21 Status: OrderedbuPROPion 300 mg/24 hours (XL) oral tablet, extended release 1 tablet = 300 mg, By Mouth, Daily, Maintenance, 07/06/21 16:29:00 EDT, ER Tablet Start Date: 07/06/21 Status: OrderedDocusate/Senna Tablet 1 tablet, By Mouth, 2 times a day, PRN Constipation, 0 Refills, Maintenance, 11/18/21 11:32:00 EST, Tablet, Partial fill upon patient request if the prescription is for a schedule II opioid drug. Start Date: 11/18/21 Status: Ordereddoxycycline hyclate 100 mg oral capsule = 100 mg, By Mouth, Every 12 hours, for 5 days, # 10 capsule, 0 Refills, Acute 01/03/22 7:41:00 EDT,12/29/21 7:41:00 EDT, Capsule, Partial fill upon patient request if the prescription is for a schedule II opioid drug. Start Date: 12/29/21 Stop Date: 01/03/22 Status: Orderedfinasteride 5 mg oral tablet 1 tablet = 5 mg, By Mouth, Daily, 0 Refills, Maintenance, 01/26/20 10:51:00 EDT, Tablet Start Date: 01/26/20 Status: Orderedgabapentin 300 mg oral capsule 600 mg, 2, capsule, By Mouth, Daily, in afternoon (with additional doses of 900 mg in the morning and at bedtime), Maintenance, 07/06/21 16:31:00 EDT Start Date: 07/06/21 Status: Orderedgabapentin 300 mg oral capsule 900 mg, 3, capsule, By Mouth, 2 times a day, AM + Bedtime (with an additional dose of 600 mg midday), Refills 0, Maintenance, 06/08/21 13:28:00 EDT Start Date: 06/08/21 Status: Orderedinsulin lispro 100 u/ml subcutaneous injection 4-12 units, Subcutaneous Injection, 3 times a day with meals, << Sliding Scale Comments >> 150 - 199 4 units Call if less than 70 200 - 249 6 units 250 - 299 8 units 300 - 349 10 units 350 - 399 12 units Call if greater than 400 <<... Start Date: 10/05/21 Status: Orderedlamotrigine 25 mg oral tablet 50 mg, 2, tablet, By Mouth, Daily at bedtime, Refills 0, Maintenance, 11/18/21 11:36:00 EST, Partialfill upon patient request if the prescription is for a schedule II opioid drug. Start Date: 11/18/21 Status: Orderedloratadine 10 mg oral tablet 10 mg, 1, tablet, By Mouth, Daily, Maintenance, 07/06/21 16:33:00 EDT Start Date: 07/06/21 Status: OrderedMultivit Therapeutic/Minerals Tablet 1 tablet, By Mouth, Daily, 0 Refills, Maintenance, 11/18/21 11:34:00 EST, Tablet, Partial fill upon patient request if the prescription is for a schedule II opioid drug. Start Date: 11/18/21 Status: OrderedNyamyc 100,000 units/g topical powder 1 application, Topically, 2 times a day, Maintenance, 07/06/21 16:35:00 EDT, Powder Start Date: 07/06/21 Status: Orderedomeprazole 20 mg oral delayed release tablet = 20 mg, By Mouth, Daily, # 14 tablet, 0 Refills, Maintenance, 11/03/21 12:11:00 EST, EC Tablet, [facility], Partial fill upon patient request if the prescription is for a schedule II opioid drug., 172, cm, 11/03/21 7:39:00 EST, Height,... Start Date: 11/03/21 Stop Date: 11/17/21 Status: Orderedoxybutynin 10 mg/24 hr oral tablet, extended release 1 tablet = 10 mg, By Mouth, Daily, # 30 tablet, 0 Refills, Maintenance, 09/29/21 12:07:00 EST, ER Tablet, Partial fill upon patient request if the prescription is for a schedule II opioid drug. Start Date: 09/29/21 Status: OrderedoxyCODONE 20 mg oral tablet 1 tablet = 20 mg, By Mouth, Every 4 hours, PRN as needed for pain, 0 Refills, Maintenance, 12/27/21 21:23:00 EDT, Tablet, Partial fill upon patient request if the prescription is for a schedule II opioid drug. Start Date: 12/27/21 Status: OrderedOxyCONTIN 30 mg oral tablet, extended release 1 tablet = 30 mg, By Mouth, Every 12 hours, # 6 tablet, 0 Refills, Maintenance, 12/03/21 15:53:00 EDT, ER Tablet, [facility], Partial fill upon patient request if the prescription is for a schedule II opioid drug., 172aleida, 11/18/21 8:12... Start Date: 12/03/21 Stop Date: 12/06/21 Status: Orderedpropranolol 120 mg oral capsule, extended release 1 capsule = 120 mg, By Mouth, Daily, Maintenance, 07/06/21 16:35:00 EDT, CR Capsule Start Date: 07/06/21 Status: Orderedrosuvastatin 40 mg oral tablet 1 tablet = 40 mg, By Mouth, Daily, # 30 tablet, 0 Refills, Maintenance, 06/19/20 21:23:00 EDT, Tablet Start Date: 06/19/20 Status: OrderedRybelsus 14 mg oral tablet 1 tablet = 14 mg, By Mouth, Daily, take at least 30 minutes before first food, beverage, or other oral meds, # 30 tablet, 0 Refills, Maintenance, 09/29/21 12:06:00 EST, Tablet, Partial fill upon patient request if the prescription is for a schedule II... Start Date: 09/29/21 Status: OrderedTresiba FlexTouch 100 units/mL subcutaneous solution = 80 units, Subcutaneous Injection, Daily at bedtime, # 10 mL, 0 Refills, Maintenance, 12/03/21 11:50:00 EDT, Solution, [facility], Partial fill upon patient request if the prescription is for a schedule II opioid drug., 172aleida, ... Start Date: 12/03/21 Status: OrderedVitamin D3 2000 intl units oral capsule 1 capsule = 2,000 International_Units, By Mouth, 2 times a day, 0 Refills, Maintenance, 06/19/20 21:23:00 EDT, Capsule Start Date: 06/19/20 Status: Orderedzolpidem 10 mg oral tablet 1 tablet = 10 mg, By Mouth, Daily at bedtime, PRN as needed for insomnia, 0 Refills, Maintenance, 05/23/20 15:48:00 EDT, Tablet Start Date: 05/23/20 Status: Ordered Problem List Condition Effective Dates Status Health Status Informant Cellulitis(Confirmed) Active Chronic back pain(Confirmed) Active CKD (chronic kidney Active disease)(Confirmed) Depressive disorder(Confirmed) Active FSGS (focal segmental Active glomerulosclerosis)(Confirmed) Hypertension(Confirmed) Active 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) Morbid obesity(Confirmed) Active Severe obesity(Confirmed) Active Tobacco dependence syndrome(Confirmed) Active Urinary incontinence(Confirmed) Active Vital Signs Most recent to oldest [Reference Range]: 1 Height 170 cm (12/30/21 4:03 PM) Weight 130 kg (12/30/21 4:03 PM) Oxygen Saturation [94-100 %] 97 % (12/30/21 4:03 PM) Pulse Rate [55-90 bpm] 116 bpm *H* (12/30/21 4:03 PM) Body Mass Index [18.5-24.99] 44.98 *>HHI* (12/30/21 4:03 PM) Blood Pressure [90-138/55-84 mm Hg] 118/89 mm Hg (12/30/21 4:03 PM) Respiratory Rate [16-30 br/min] 18 br/min (12/30/21 4:03 PM) Temperature [96.8-100.4 DegF] 99.3 DegF (12/30/21 4:03 PM) Mode of Delivery (Oxygen) Room air (12/30/21 4:03 PM) Blood pressure sites Arm, left (12/30/21 4:03 PM) Temperature Route Oral (12/30/21 4:03 PM) Dry Weight 130 kg (12/30/21 4:03 PM) Weight Obtained Via Patient/family stated (12/30/21 4:03 PM) Dry Weight Obtained Via Patient/family stated (12/30/21 4:03 PM) Social History Social History Type Response Smoking Status Current every day smoker entered on: 09/15/17 Sex
--- OUTSIDE RECORDS SUMMARY | 2022-06-28 06:59 | XMS_ITS | Continuity of Care Document ---
:1970 Author Organization [facility] Address [address] [place] [address]- Care Team Providers Name Role Phone Sobia Khalil DO Primary Care Physician [place] [facility] [place] - 11/21/[address] [address]- Encounter Diagnosis Lumbar back pain (Final) - 11/12/20 Discharge Disposition: A-D/C Home Attending Physician: Julia Barrett MD Admitting Physician: Demetrius Aldana MD Referring Physician: Not on Staff, Referring MD Allergies, Adverse Reactions, Alerts Substance Reaction Severity Status acetaminophen extremely itchy Active MetFORMIN (Eqv-Glumetza) Active Immunizations Given and Recorded Vaccine Date Status Refusal Reason influenza virus vaccine, inactivated 06/20/20 Given pneumococcal 23-valent vaccine1 05/26/20 Given Hepatitis B Vaccine (old term) 03/22/08 Given 1Result Comment: vial discarded accidenetally and lot number and exp not entered Medications Albuterol 0.083% inhalation luisa 2.5 mg, 3, mL, Neb, Every 4 hours, PRN, Refills 0, Maintenance, Wheezing/Shortness of Breath, 01/26/20 10:51:00 EDT, Inhalation Solution Start Date: 01/26/20 Status: OrderedamLODIPine 10 mg oral tablet 1 tablet = 10 mg, By Mouth, Daily, # 30 tablet, 0 Refills, Maintenance, 06/19/20 21:23:00 EDT, Tablet Start Date: 06/19/20 Status: OrderedamLODIPine 10 mg oral tablet 10 mg, Tablet, By Mouth, 11/21/20 9:00:00 EST Start Date: 11/21/20 Stop Date: 11/21/20 Status: CompletedAspirin Low Dose 81 mg oral delayed release tablet 1 tablet = 81 mg, By Mouth, Daily, # 30 tablet, 0 Refills, Maintenance, 06/19/20 21:23:00 EDT, EC Tablet Start Date: 06/19/20 Status: OrderedBactrim DS 800 mg-160 mg oral tablet 1 tablet, By Mouth, 2 times a day, for 4 days, drink plenty of fluids Dosage expressed as trimethoprim, # 8 tablet, 0 Refills, Acute 11/25/20 10:22:00 EST, 11/21/20 10:22:00 EST, Tablet, [facility], Partial fill upon patient request if th... Start Date: 11/21/20 Stop Date: 11/25/20 Status: OrderedBactrim DS 800 mg-160 mg oral tablet 1 tablet, By Mouth, 2 times a day, for 4 days, drink plenty of fluids Dosage expressed as trimethoprim, # 8 tablet, 0 Refills, Acute 11/29/20 10:22:00 EDT, 11/25/20 10:22:00 EST, Tablet, [facility], Partial fill upon patient request if... Start Date: 11/25/20 Stop Date: 11/29/20 Status: Orderedbisacodyl 10 mg rectal suppository 1 supp = 10 mg, Rectally, Daily, PRN Constipation, for 5 days, # 5 supp, 0 Refills, Acute 11/26/20 10:21:00 EST, 11/21/20 10:21:00 EST, Suppository, [facility], Partial fill upon patient request if the prescription is for a schedule II opi... Start Date: 11/21/20 Stop Date: 11/26/20 Status: OrderedbuPROPion 150 mg/12 hours (SR) oral tablet, extended release 2 tablet = 300 mg, By Mouth, Daily, 0 Refills, Maintenance, 01/26/20 10:51:00 EDT, SR Tablet Start Date: 01/26/20 Status: Orderedchlorthalidone 25 mg oral tablet 25 mg, 1, tablet, By Mouth, Daily, # 30 tablet, Refills 0, Maintenance, 11/11/20 2:32:00 EST, Partial fill upon patient request if the prescription is for a schedule II opioid drug. Start Date: 11/11/20 Status: OrderedColace sodium 100 mg oral capsule 100 mg, 1, capsule, By Mouth, 2 times a day, # 20 capsule, Refills 0, Maintenance, 11/11/20 2:32:00 EST, Partial fill upon patient request if the prescription is for a schedule II opioid drug. Start Date: 11/11/20 Status: OrderedDilaudid Inj 1 mg, Injection, IV Push Slowly, Every 4 hours, PRN for Pain , Severe, Routine, 11/18/20 10:39:00 EST Start Date: 11/18/20 Stop Date: 11/21/20 Status: Discontinuedfinasteride 5 mg oral tablet 1 tablet = 5 mg, By Mouth, Daily, 0 Refills, Maintenance, 01/26/20 10:51:00 EDT, Tablet Start Date: 01/26/20 Status: Orderedgabapentin 300 mg oral capsule 900 mg, 3, capsule, By Mouth, 3 times a day, # 90 capsule, Refills 0, Maintenance, 01/27/20 12:16:00EDT Start Date: 01/27/20 Status: Orderedgabapentin 300 mg oral capsule 900 mg, Capsule, By Mouth, 11/21/20 9:00:00 EST Start Date: 11/21/20 Stop Date: 11/21/20 Status: CompletedInsulin Lispro 3-15 units, Subcutaneous Injection, 3 times a day before meals, 0 Refills, Maintenance, 05/22/20 13:05:00 EDT, Injection Start Date: 05/22/20 Status: Orderedlamotrigine 100 mg oral tablet 200 mg, 2, tablet, By Mouth, Daily at bedtime, Refills 0, Maintenance, 01/26/20 10:51:00 EDT Start Date: 01/26/20 Status: Orderedloratadine 5 mg oral tablet, chewable 2 tablet = 10 mg, Chew, Daily, # 30 tablet, 0 Refills, Maintenance, 11/11/20 2:30:00 EST, Chew Tablet, Partial fill upon patient request if the prescription is for a schedule II opioid drug. Start Date: 11/11/20 Status: OrderedLORazepam 1 mg oral tablet 1 tablet = 1 mg, By Mouth, 3 times a day, 0 Refills, Maintenance, 11/11/20 2:34:00 EST, Tablet, Partial fill upon patient request if the prescription is for a schedule II opioid drug. Start Date: 11/11/20 Status: OrderedMaalox Plus Liquid 30 mL, By Mouth, Every 4 hours, PRN Dyspepsia, 0 Refills, Maintenance, 01/26/20 10:49:00 EDT, Suspension Start Date: 01/26/20 Status: Orderednystatin topical 989351 u/gm cream 1 application, Topically, 2 times a day, # 15 Gm, 0 Refills, Maintenance, 11/11/20 2:32:00 EST, Cream, Partial fill upon patient request if the prescription is for a schedule II opioid drug. Start Date: 11/11/20 Status: Orderedondansetron 4 mg oral tablet, disintegrating = 4 mg, By Mouth, Every 6 hours, PRN Nausea & Vomiting, 0 Refills, Maintenance, 01/26/20 10:49:00 EDT, Tablet Start Date: 01/26/20 Status: Orderedoxybutynin 10 mg/24 hr oral tablet, extended release 1 tablet = 10 mg, By Mouth, Daily, # 30 tablet, 0 Refills, Maintenance, 11/11/20 2:33:00 EST, ER Tablet, Partial fill upon patient request if the prescription is for a schedule II opioid drug. Start Date: 11/11/20 Status: OrderedoxyCODONE 10 mg oral tablet 1 tablet = 10 mg, By Mouth, Daily, PRN as needed for pain, 0 Refills, Maintenance, 11/11/20 2:35:00 EST, Tablet, Partial fill upon patient request if the prescription is for a schedule II opioid drug. Start Date: 11/11/20 Status: OrderedOxyCONTIN 20 mg oral tablet, extended release 20 mg, 1, tablet, By Mouth, Every 12 hours, Refills 0, Tot. Refills 0, Maintenance, 11/11/20 2:37:00EST, Partial fill upon patient request if the prescription is for a schedule II opioid drug. Start Date: 11/11/20 Status: Orderedpropranolol 60 mg oral capsule, extended release 120 mg, 2, capsule, By Mouth, Daily, Refills 0, Maintenance, 01/26/20 10:50:00 EDT Start Date: 01/26/20 Status: Orderedpropranolol 60 mg oral capsule, extended release 120 mg, CR Capsule, By Mouth, 11/21/20 9:00:00 EST Start Date: 11/21/20 Stop Date: 11/21/20 Status: Completedrosuvastatin 40 mg oral tablet 1 tablet = 40 mg, By Mouth, Daily, # 30 tablet, 0 Refills, Maintenance, 06/19/20 21:23:00 EDT, Tablet Start Date: 06/19/20 Status: OrderedSenna 8.6 mg oral tablet 8.6 mg, 1, tablet, By Mouth, Daily, PRN, with plenty of water for 7 days, # 7 tablet, Refills 0, Tot. Refills 0, Acute, Constipation, 11/28/20 10:21:00 EST, 11/21/20 10:21:00 EST, Route to Pharmacy Electronically, [facility] Tablet, [place]... Start Date: 11/21/20 Stop Date: 11/28/20 Status: OrderedTresiba FlexTouch 100 units/mL subcutaneous solution = 74 units, Subcutaneous Injection, Daily, 0 Refills, Maintenance, 06/19/20 21:19:00 EDT Start Date: 06/19/20 Status: OrderedTrulicity Pen 1.5 mg/0.5 mL subcutaneous solution 0.5 mL = 1.5 mg, Subcutaneous Injection, Every week, rotate injection sites, # 2 mL, 0 Refills, Maintenance, 11/11/20 2:34:00 EST, Solution, Partial fill upon patient request if the prescription is fora schedule II opioid drug. Start Date: 11/11/20 Status: OrderedVitamin D3 2000 intl units oral capsule 1 capsule = 2,000 International_Units, By Mouth, Daily, # 60 capsule, 0 Refills, Maintenance, 06/19/20 21:23:00 EDT, Capsule Start Date: 06/19/20 Status: Orderedzolpidem 10 mg oral tablet 1 tablet = 10 mg, By Mouth, Daily at bedtime, PRN as needed for insomnia, 0 Refills, Maintenance, 05/23/20 15:48:00 EDT, Tablet Start Date: 05/23/20 Status: Ordered Problem List Condition Effective Dates Status Health Status Informant Depressive disorder(Confirmed) Active Tobacco dependence syndrome(Confirmed) Active Urinary incontinence(Confirmed) Active Results Orders for Microbiology Reports Name Date Urine Culture (URINE CULTURE) 11/19/20 CSF Culture w/ Gram Smear (SPINAL FLUID CULTURE) Microbiology Reports TEST:Urine Culture STATUS:Unauthenticated BODY SITE: SOURCE:URINE COLLECTED DATE/TIME:11/19/20 5:00 PMUrine Culture SPECIMEN DESCRIPTION : URINE SPECIAL REQUESTS : NONE Reflexed from [id number] CULTURE : >100,000 COL/ML GRAM NEGATIVE RODS REPORT STATUS : PRELIMINARY REPORT TEST:Spinal Fluid Culture STATUS:Auth (Verified) BODY SITE: SOURCE:CEREBR COLLECTED DATE/TIME:11/13/20 10:57 AMSpinal Fluid Culture SPECIMEN DESCRIPTION : CEREBROSPINAL FLUID SPECIAL REQUESTS : NONE GRAM STAIN : NO CELLS OR ORGANISMS SEEN CULTURE : NO GROWTH 3 DAYS REPORT STATUS : FINAL 11/17/2020 Vital Signs Most recent to oldest 1 2 3 [Reference Range]: Height 172 cm 172 cm 172 cm (11/20/20 4:28 PM) (11/19/20 4:51 PM) (11/19/20 8:45 A M) Weight 138 kg (11/11/20 2:32 AM) Oxygen Saturation [94-100 %] 92 % 91 % 96 % *L* *L* (11/20/20 4:28 PM) (11/21/20 8:00 AM) (11/20/20 7:46 PM) Pulse Rate [55-90 bpm] 76 bpm 76 bpm 110 bpm (11/21/20 9:25 AM) (11/21/20 8:00 AM) *H* (11/20/20 7:46 PM) Body Mass Index [18.5-24.99] 46.65 *>HHI* (11/11/20 2:32 AM) Blood Pressure [90-138/55-84 mm 136/57 mm Hg 136/57 mm Hg 136/57 mm Hg Hg] (11/21/20 9:33 AM) (11/21/20 9:25 AM) (11/21/20 8:00 A M) Respiratory Rate [16-30 br/min] 20 br/min 20 br/min 20 br/min (11/21/20 11:04 AM) (11/21/20 10:34 AM) (11/21/20 10:2 5 AM) Temperature [96.8-100.4 DegF] 98.0 DegF 96.6 DegF 98 .1 DegF (11/21/20 8:00 AM) *L* (11/20/20 4:28 PM ) (11/20/20 7:46 PM) Liters per Minute 0 L/min 0 L/min 0 L/min (11/21/20 8:00 AM) (11/20/20 11:00 AM) (11/20/20 8:00 AM) Mode of Delivery (Oxygen) Room air Room air Room a ir (11/21/20 8:00 AM) (11/20/20 7:46 PM) (11/20/20 4:28 P M) Blood pressure sites Arm, right Arm, left Arm, left (11/21/20 8:00 AM) (11/20/20 7:46 PM) (11/20/20 4:28 P M) Temperature Route Oral Temporal Oral (11/21/20 8:00 AM) (11/20/20 7:46 PM) (11/20/20 4:28 P M) Dry Weight 138 kg (11/11/20 2:32 AM) Weight Obtained Via o Bed scale (11/14/20 3:17 PM) (11/11/20 2:32 AM) Dry Weight Obtained Via Bed scale (11/11/20 2:32 AM) Social History Social History Type Response Smoking Status Current every day smoker entered on: 09/15/17 Sex
--- OUTSIDE RECORDS SUMMARY | 2022-06-28 06:59 | XMS_ITS | Continuity of Care Document ---
:1970 Author Organization [facility] Address [address] [place] [address]- Care Team Providers Name Role Phone Sobia Khalil DO Primary Care Physician Encounter [facility] [place] Date(s): 08/27/21 - 10/23/21 [facility] [address] [place] [id number] Attending Physician: Phillip Choi MD Admitting Physician: Phillip Choi MD Referring Physician: Sobia Khalil DO Allergies, Adverse Reactions, Alerts Substance Reaction Severity [...] EDT, EC Tablet Start Date: 06/19/20 Status: OrderedbuPROPion 300 mg/24 hours (XL) oral tablet, extended release 1 tablet = 300 mg, By Mouth, Daily, Maintenance, 07/06/21 16:29:00 EDT, ER Tablet Start Date: 07/06/21 Status: Orderedfinasteride 5 mg oral tablet 1 [...] than 400 <<... Start Date: 10/05/21 Status: OrderedLaMICtal 25 mg oral tablet 25 mg, 1, tablet, By Mouth, Daily, in place of lamictal 200 daily, # 30 tablet, Refills 0, Tot. Refills 0, Maintenance, 10/05/21 10:58:00 EST, Route to Pharmacy Electronically, [facility], Partial fill upon patient request if the prescript... Start Date: 10/05/21 Status: Orderedlisinopril 5 mg oral tablet 5 mg, 1, tablet, By Mouth, Daily, # 30 tablet, Refills 0, Maintenance, 09/29/21 12:07:00 EST, Partial fill upon patient request if the prescription is for a schedule II opioid drug. Start Date: 09/29/21 Status: Orderedloratadine 10 mg oral tablet 10 mg, 1, tablet, By Mouth, Daily, Maintenance, 07/06/21 16:33:00 EDT Start Date: 07/06/21 Status: OrderedLORazepam 2 mg oral tablet 1 tablet = 2 mg, By Mouth, 3 times a day Start Date: 06/02/21 Status: OrderedNyamyc 100,000 units/g topical powder 1 application, Topically, 2 times a day, Maintenance, 07/06/21 16:35:00 EDT, Powder Start Date: 07/06/21 Status: Orderedomeprazole 20 mg oral enteric coated capsule 1 capsule = 20 mg, By Mouth, Daily, # 30 capsule, 0 Refills, Maintenance, 09/29/21 12:06:00 EST, EC Capsule, Partial fill upon patient request if the prescription is for a schedule II opioid drug. Start Date: 09/29/21 Status: Orderedoxybutynin 10 mg/24 hr oral tablet, extended release 1 tablet = 10 mg, By Mouth, Daily, # 30 tablet, 0 Refills, Maintenance, 09/29/21 12:07:00 EST, ER Tablet, Partial fill upon patient request if the prescription is for a schedule II opioid drug. Start Date: 09/29/21 Status: Orderedoxycodone 30 mg oral tablet, extended release 1 tablet = 30 mg, By Mouth, Every 12 hours, # 10 tablet, 0 Refills, Maintenance, 10/05/21 9:52:00 EST, ER Tablet, Partial fill upon patient request if the prescription is for a schedule II opioid drug. Start Date: 10/05/21 Stop Date: 10/10/21 Status: Orderedpropranolol 120 mg oral capsule, extended [...] subcutaneous solution = 80 units, Subcutaneous Injection, Daily, # 10 mL, 0 Refills, Maintenance, 07/27/21 14:56:00 EST, Solution, [facility], Partial fill upon patient request if the prescription is for a schedule II opioid drug., 172, cm, 07/27/21 11:14:00... Start Date: 07/27/21 Status: OrderedVitamin D3 2000 intl units oral [...] Tobacco dependence syndrome(Confirmed) Active Urinary incontinence(Confirmed) Active Social History Social History Type Response Smoking Status Current every day smoker entered on: 09/15/17 Sex
--- OUTSIDE RECORDS SUMMARY | 2022-06-28 06:59 | XMS_ITS | Continuity of Care Document ---
:1970 Author Organization [facility] Address [address] [place] [id number]- Care Team Providers Name Role Phone Sobia Khalil DO Primary Care Physician [place] [facility] [place] 08/29/19 - 08/29/[address] [address]- [facility] Attending Physician: Agatha Antonio Allergies, Adverse Reactions, Alerts Substance Reaction Severity Status acetaminophen extremely itchy Active morphine by mouth-vomiting Active Immunizations Given and Recorded Vaccine Date [...] 08/03/18 9:19:34 EST Start Date: 08/03/18 Status: OrderedDoxycycline 1 tab, By Mouth, 2 times a day, Maintenance, 08/03/18 9:34:52 EST Start Date: 08/03/18 Status: OrderedFlonase 50 mcg/inh nasal spray 1 sprays, Inhalation, Daily, PRN Other, 0 Refills, Maintenance, 09/15/17 13:21:37 EST Start Date: 09/15/17 Status: OrderedFlovent Diskus 2 puffs, Inhalation, 2 times a day, 0 Refills, Maintenance, 09/15/17 13:22:12 EST Start Date: 09/15/17 Status: Orderedgabapentin 300 mg oral capsule 300 [...] 09/15/17 13:26:30 EST Start Date: 09/15/17 Status: OrderedLantus Solostar Pen 100 units/mL subcutaneous solution = 65 units, Subcutaneous Injection, Daily, 0 Refills, Maintenance, 09/15/17 13:23:13 EST Start Date: 09/15/17 Status: OrderedLORazepam 2 mg oral tablet 2 tablet = 4 mg, By Mouth, 3 times a day, PRN for anxiety, 0 Refills, Maintenance, 08/03/18 9:22:52 EST, Tablet Start Date: 08/03/18 Status: OrderedNovoLOG FlexPen 100 units/mL subcutaneous solution See Instructions, Subcutaneous Injection, Use as directed for Diabetes mellitus type 1. takes 36units with breakfast and dinner; 15 units at lunch, # 3 each, 5 Refills, Maintenance, 09/15/17 13:23:26 EST Start Date: 09/15/17 Stop Date: 10/15/17 Status: OrderedNystop 226777 u/gm powder 1 applicator, Topically, 3 times a day, 0 Refills, Maintenance, 09/15/17 13:21:19 Start Date: 09/15/17 Status: Orderedoxycodone 10 mg oral tablet 1 [...]
--- OUTSIDE RECORDS SUMMARY | 2022-06-28 06:59 | XMS_ITS | Continuity of Care Document ---
:1970 Author Organization [facility] Address [address] [place] [address]- Care Team Providers Name Role Phone Sobia Khalil DO Primary Care Physician Encounter [facility] [place] Date(s): 07/06/20 - 07/06/[address] [address]- [facility] Encounter Diagnosis Chronic low back pain (Final) - 07/06/20 Discharge Disposition: A-D/C Home Attending Physician: Willy Garza MD Admitting Physician: Willy Garza MD Referring Physician: Not on Staff, Referring [...] EC Tablet Start Date: 06/19/20 Status: OrderedbuPROPion 150 mg/12 hours (SR) oral tablet, extended release 2 tablet = 300 mg, By Mouth, Daily, 0 Refills, Maintenance, 01/26/20 10:51:00 EDT, SR Tablet Start Date: 01/26/20 Status: Orderedcyclobenzaprine 10 mg oral tablet 10 mg, 1, tablet, By Mouth, 3 times a day, for 30 days, # 90 tablet, Refills 1, Tot. Refills 1, Acute 07/28/20 12:56:00 EST, 05/29/20 12:56:00 EDT, Route to Pharmacy Electronically, [facility], 173, cm, 05/29/20 11:31:00 EDT, Height, 141... Start Date: 05/29/20 Stop Date: 07/28/20 Status: Orderedfinasteride 5 mg oral tablet 1 tablet = 5 mg, By Mouth, Daily, 0 Refills, Maintenance, 01/26/20 10:51:00 EDT, Tablet Start Date: 01/26/20 Status: Orderedgabapentin 300 mg oral capsule 900 mg, 3, capsule, By Mouth, 3 times a day, # 90 capsule, Refills 0, Maintenance, 01/27/20 12:16:00EDT Start Date: 01/27/20 Status: OrderedInsulin Lispro 3-15 units, Subcutaneous Injection, 3 times a day before meals, 0 Refills, Maintenance, 05/22/20 13:05:00 EDT, Injection Start Date: 05/22/20 Status: Orderedlamotrigine 100 mg oral tablet 200 mg, 2, tablet, By Mouth, Daily at bedtime, Refills 0, Maintenance, 01/26/20 10:51:00 EDT Start Date: 01/26/20 Status: Orderedlidocaine 5% topical film Topically, Daily, 0 Refills, Maintenance, 05/22/20 12:49:00 EDT, Patch Start Date: 05/22/20 Status: Orderedlisinopril 5 mg oral tablet 5 mg, 1, tablet, By Mouth, Daily, # 30 tablet, Refills 0, Maintenance, 06/19/20 21:23:00 EDT Start Date: 06/19/20 Status: OrderedMaalox Plus Liquid 30 mL, By Mouth, Every 4 hours, PRN Dyspepsia, 0 Refills, Maintenance, 01/26/20 10:49:00 EDT, Suspension Start Date: 01/26/20 Status: Orderednabumetone 500 mg oral tablet 1 tablet = 500 mg, By Mouth, 2 times a day, PRN Pain , Moderate, # 60 tablet, 0 Refills, Maintenance, 05/23/20 15:44:00 EDT, Tablet Start Date: 05/23/20 Status: Orderednystatin topical 223466 u/gm powder 1 application, Topically, 2 times a day, for 30 days, # 30 Gm, 1 Refills, Acute 07/28/20 12:57:00 EST, 05/29/20 12:57:00 EDT, Powder, [facility], 1 application Topically 2 times a day,[id number], 173, cm, 05/29/20 11:31:00 EDT, Height, 141... Start Date: 05/29/20 Stop Date: 07/28/20 Status: Orderedondansetron 4 mg oral tablet, disintegrating = 4 mg, By Mouth, Every 6 hours, PRN Nausea & Vomiting, 0 Refills, Maintenance, 01/26/20 10:49:00 EDT, Tablet Start Date: 01/26/20 Status: OrderedOxyCONTIN 20 mg oral tablet, extended release 20 mg, 1, tablet, By Mouth, Every 12 hours, # 4 tablet, Refills 0, Tot. Refills 0, Maintenance, 07/03/20 8:17:00 EDT, Print Requisition, Partial fill upon patient request Start Date: 07/03/20 Stop Date: 07/05/20 Status: Orderedpropranolol 60 mg oral capsule, extended release 120 mg, 2, capsule, By Mouth, Daily, Refills 0, Maintenance, 01/26/20 10:50:00 EDT Start Date: 01/26/20 Status: Orderedrosuvastatin 40 mg oral tablet 1 tablet = 40 mg, By Mouth, Daily, # 30 tablet, 0 Refills, Maintenance, 06/19/20 21:23:00 EDT, Tablet Start Date: 06/19/20 Status: OrderedTresiba FlexTouch 100 units/mL subcutaneous solution = 74 units, Subcutaneous Injection, Daily, 0 Refills, Maintenance, 06/19/20 21:19:00 EDT Start Date: 06/19/20 Status: OrderedVitamin D3 2000 intl units oral [...] Active Vital Signs Most recent to oldest 1 2 3 [Reference Range]: Oxygen Saturation [94-100 %] 99 % 96 % (07/06/20 2:18 PM) (07/06/20 7:36 AM) Pulse Rate [55-90 bpm] 95 bpm 104 bpm *H* *H* (07/06/20 2:18 PM) (07/06/20 7:36 AM) Blood Pressure [90-138/55-84 142/98 mm Hg 194/85 mm Hg mm Hg] *H* *H* (07/06/20 2:18 PM) (07/06/20 7:36 AM) Respiratory Rate [16-30 22 br/min 18 br/min 18 br/mi n br/min] (07/06/20 2:18 PM) (07/06/20 9:21 AM) (07/06/20 8:29 AM) Temperature [96.8-100.4 98.3 DegF DegF] (07/06/20 7:36 AM) Mode of Delivery (Oxygen) Room air Room air (07/06/20 2:18 PM) (07/06/20 7:36 AM) Blood pressure sites Arm, right Arm, right (07/06/20 2:18 PM) (07/06/20 7:36 AM) Temperature Route Oral (07/06/20 7:36 AM) Social History Social History Type Response Smoking Status Current every day smoker entered on: 09/15/17 Sex
--- OUTSIDE RECORDS SUMMARY | 2022-06-28 06:59 | XMS_ITS | Continuity of Care Document ---
:1970 Author Organization [facility] Address [address] [place] [address]- Care Team Providers Name Role Phone Geovany AUSTIN, Maria Antonia Primary Care Physician [place] [facility] [place] 03/23/22 - 03/24/[address] [address] Discharge Disposition: A-D/C Home Attending Physician: Tia Etienne MD Admitting Physician: Mer MELCHOR, Chun Rogers Referring Physician: Not on Staff, Referring MD Allergies, Adverse Reactions, Alerts Substance Reaction Severity Status acetaminophen extremely itchy Active shellfish1 Active Tylenol Active Fish2 Active MetFORMIN (Eqv-Glumetza) Active 1patient reports itchy/tingling [id number] reports itchy/tingling throat Immunizations Given and Recorded [...] tablet = 10 mg, By Mouth, Daily, Maintenance, 02/08/22 10:59:00 EDT, Tablet, ; Start Date: 02/08/22 Status: OrderedamLODIPine 10 mg oral tablet 10 mg, Tablet, By Mouth, 03/24/22 9:00:00 EDT Start Date: 03/24/22 Stop Date: 03/24/22 Status: CompletedAspirin Low Dose 81 mg oral [...] 10:59:00 EDT, ; Start Date: 02/08/22 Status: OrderedDocusate/Senna Tablet 1 tablet, By Mouth, 2 times a day, PRN Constipation, 0 Refills, Maintenance, 11/18/21 11:32:00 EST, Tablet, Partial fill upon patient request if the prescription is for a schedule II opioid drug. Start Date: 11/18/21 Status: Orderedfinasteride 5 mg oral tablet 1 tablet = 5 mg, By Mouth, Daily, 0 Refills, Maintenance, 01/26/20 10:51:00 EDT, Tablet Start Date: 01/26/20 Status: Orderedfluticasone 50 mcg/inh nasal spray 1 sprays, Nares, Both, Daily in AM, Maintenance, 02/08/22 11:00:00 EDT, [place], ; Start Date: 02/08/22 Status: Orderedgabapentin 300 mg oral capsule 900 mg, Capsule, By Mouth, 03/24/22 9:00:00 EDT Start Date: 03/24/22 Stop Date: 03/24/22 Status: Completedgabapentin 300 mg oral capsule See Instructions, 900 mg AM and PM. 600 mg in the afternoon., Refills 0, Maintenance, 06/08/21 13:28:00 EDT, Instructions Replace Required Details Start Date: 06/08/21 Status: Orderedlamotrigine 25 mg oral tablet 50 mg, 2, tablet, By Mouth, Daily at bedtime, Refills 0, Maintenance, 11/18/21 11:36:00 EST, ; Start Date: 11/18/21 Status: Orderedloratadine 10 mg oral tablet 10 mg, 1, tablet, By Mouth, Daily, Maintenance, 07/06/21 16:33:00 EDT Start Date: 07/06/21 Status: OrderedMorPHINE Inj 1 mg, Injection, IV Push Slowly, Every 6 hours, PRN for Pain , Moderate, Routine, 03/23/22 12:40:00 EDT Start Date: 03/23/22 Stop Date: 03/24/22 Status: DiscontinuedMultivit Therapeutic/Minerals Tablet 1 tablet, By Mouth, Daily, 0 Refills, Maintenance, 11/18/21 11:34:00 EST, Tablet, ; Start Date: 11/18/21 Status: OrderedNovoLOG FlexPen 100 units/mL injectable solution 0-8 units, Subcutaneous Injection, 3 times a day before meals, Maintenance, 02/08/22 10:59:00 EDT, ; Start Date: 02/08/22 Status: Orderedondansetron 4 mg oral tablet, disintegrating 1 tablet = 4 mg, By Mouth, Every 8 hours, PRN as needed for nausea/vomiting, Maintenance, 02/08/22 11:00:00 EDT, DIS Tablet, ; Start Date: 02/08/22 Status: OrderedoxyCODONE 20 mg oral tablet 1 tablet = 20 mg, By Mouth, Every 4 hours, PRN as needed for pain, 0 Refills, Maintenance, 03/15/22 10:43:00 EDT, Tablet, Partial fill upon patient request if the prescription is for a schedule II opioid drug. Start Date: 03/15/22 Status: OrderedOxyCONTIN 10 mg oral tablet, extended release 30 mg, ER Tablet, By Mouth, 03/24/22 6:00:00 EDT Start Date: 03/24/22 Stop Date: 03/24/22 Status: CompletedOxyCONTIN 30 mg oral tablet, extended release 1 tablet = 30 mg, By Mouth, Every 12 hours, # 14 tablet, 0 Refills, Maintenance, 02/12/22 10:37:00 EDT, ER Tablet, [facility], Partial fill upon patient request if the prescription is fora schedule II opioid drug., 172, cm, 02/10/22 18:... Start Date: 02/12/22 Stop Date: 02/19/22 Status: Orderedpropranolol 120 mg oral capsule, extended release 1 capsule = 120 mg, By Mouth, Daily, Maintenance, 07/06/21 16:35:00 EDT, CR Capsule Start Date: 07/06/21 Status: Orderedpropranolol 60 mg oral capsule, extended release 120 mg, CR Capsule, By Mouth, 03/24/22 9:00:00 EDT Start Date: 03/24/22 Stop Date: 03/24/22 Status: CompletedProtonix 40 mg oral delayed release tablet 1 tablet = 40 mg, By Mouth, 2 times a day, # 60 tablet, 0 Refills, Maintenance, 03/24/22 7:56:00 EDT, EC Tablet, 172.72, cm, 03/24/22 5:04:00 EDT, Height, 129.09, kg, 03/22/22 23:52:00 EDT, Dry Weight Start Date: 03/24/22 Stop Date: 04/23/22 Status: Orderedrosuvastatin 40 mg oral tablet 1 [...] Chew Tablet, ; Start Date: 02/08/22 Status: OrderedTresiba FlexTouch 100 units/mL subcutaneous solution [...] Anxiety and depression(Confirmed) Active Morbid obesity(Confirmed) Active Overactive bladder(Confirmed) Active Severe obesity(Confirmed) Active Tobacco dependence syndrome(Confirmed) Active Urinary incontinence(Confirmed) Active Vitamin D deficiency(Confirmed) Active Results Radiology Reports Exam Date Time Procedure Performing Provider Status 03/22/22 9:39 PM Chest Portable Lakeisha Kearney; Auth (Verifie d) Notes:(Chest Portable) Reason For Exam: perf vs ? of sepsis;Fever/Increased White CountRESULT: Chest Portable AP semiupright portable chest dated March 22, 2022 at 2135 hours. Comparison films are from February 09, 2022. HISTORY: Fever. FINDINGS: The cardiac silhouette is increased in size. The aorta is mildly unfolded. Pulmonary vascular congestion and interstitial edema are present. Visualized osseous structures are unremarkable. IMPRESSION: Mild volume overload/congestive heart failure pattern. Examination [id number]. Thank you for allowing me to participate in the care of this patient. WSN: [id number] Ordering Physician: Julee Garcia Dictated By: Riley Armstrong MD Dictated Date/Time: 03/22/22 9:52 pm Reviewed By: Riley Armstrong MD Signed By: Riley Armstrong MD Signed Date/Time: 03/22/22 9:52 pm Transcribed By: LELSEE Transcribed Date/Time: 03/22/22 9:52 pm Vital Signs Most recent to oldest 1 2 3 [Reference Range]: Height 172.72 cm 172.72 cm 172.72 cm (03/24/22 5:04 AM) (03/23/22 11:30 PM) (03/23/22 8:20 PM) Weight 123.6 kg 129.09 kg 129.09 kg (03/24/22 5:04 AM) (03/23/22 7:58 AM) (03/22/22 11:52 PM) Oxygen Saturation [94-100 96 % 97 % 99 % %] (03/24/22 7:00 AM) (03/24/22 5:04 AM) (03/23/22 11:30 PM) Pulse Rate [55-90 bpm] 73 bpm 73 bpm 75 bpm (03/24/22 7:15 AM) (03/24/22 7:00 AM) (03/24/22 5:04 A M) Body Mass Index 41.43 43.27 43.27 [18.5-24.99] *>HHI* *>HHI* *>HHI* (03/24/22 5:04 AM) (03/23/22 7:58 AM) (03/22/22 11:52 PM) Blood Pressure 139/67 mm Hg 139/67 mm Hg 139/67 mm Hg [90-138/55-84 mm Hg] *H* *H* *H* (03/24/22 7:17 AM) (03/24/22 7:15 AM) (03/24/22 7:00 A M) Respiratory Rate [16-30 18 br/min 19 br/min 19 br/mi n br/min] (03/24/22 9:18 AM) (03/24/22 8:17 AM) (03/24/22 7:42 A M) Temperature [96.8-100.4 98.2 DegF 97.9 DegF 98.4 Deg F DegF] (03/24/22 7:00 AM) (03/24/22 5:04 AM) (03/23/22 11:30 PM) Mode of Delivery (Oxygen) Room air Room air Room a ir (03/24/22 7:00 AM) (03/24/22 5:04 AM) (03/23/22 11:30 PM) Blood pressure sites Arm, right Arm, right Arm, right (03/24/22 7:00 AM) (03/24/22 5:04 AM) (03/23/22 11:30 PM) Temperature Route Oral Oral Oral (03/24/22 7:00 AM) (03/24/22 5:04 AM) (03/23/22 11:30 PM) Dry Weight 129.09 kg 129.09 kg (03/22/22 11:52 PM) (03/22/22 7:46 PM) Weight Obtained Via Bed scale Patient/family stated (03/24/22 5:04 AM) (03/22/22 7:46 PM) Dry Weight Obtained Via Patient/family stated (03/22/22 7:46 PM) Social History Social History Type Response Smoking Status Current every day smoker entered on: 09/15/17 Sex
--- OUTSIDE RECORDS SUMMARY | 2022-06-28 06:59 | XMS_ITS | Continuity of Care Document ---
:1970 Author Organization [facility] Address [address] [place] [address]- Care Team Providers Name Role Phone Sobia Khalil DO Primary Care Physician [place] [facility] [place] 12/18/[address] [address]- Encounter Diagnosis Back pain, subacute (Final) - 12/18/20 Discharge Disposition: A-D/C Home Attending Physician: Panda Moya MD Admitting Physician: Panda Moya MD Referring Physician: Not on Staff, Referring [...] oral tablet 10 mg, Tablet, By Mouth, 12/18/20 11:50:00 EDT Start Date: 12/18/20 Stop Date: 12/18/20 Status: CompletedAspirin Low Dose 81 mg oral [...] drug. Start Date: 11/11/20 Status: OrderedDilaudid Inj 2 mg, Injection, IV Push Slowly, Every 15 minutes for 3 doses/times, PRN for Pain , Moderate, and SBP greater than 100, Routine, 12/18/20 7:42:00 EDT, Stop date Limited # of times Start Date: 12/18/20 Stop Date: 12/18/20 Status: Completedfinasteride 5 mg oral tablet 1 tablet = [...] II opioid drug. Start Date: 11/11/20 Status: Orderednystatin topical 512623 u/gm cream 1 application, Topically, 2 times a day, # 15 Gm, 0 Refills, Maintenance, 11/11/20 2:32:00 EST, Cream, Partial fill upon patient request if the prescription is for a schedule II opioid drug. Start Date: 11/11/20 Status: Orderedoxybutynin 10 mg/24 hr oral tablet, [...] mg oral tablet, extended release 20 mg, ER Tablet, By Mouth, 12/18/20 12:00:00 EDT Start Date: 12/18/20 Stop Date: 12/18/20 Status: Completedpropranolol 60 mg oral capsule, extended release 120 mg, 2, capsule, By Mouth, Daily, Refills 0, Maintenance, 01/26/20 10:50:00 EDT Start Date: 01/26/20 Status: Orderedpropranolol 60 mg oral capsule, extended release 120 mg, CR Capsule, By Mouth, 12/18/20 11:50:00 EDT Start Date: 12/18/20 Stop Date: 12/18/20 Status: Completedrosuvastatin 40 mg oral tablet 1 [...] 3 [Reference Range]: Oxygen Saturation [94-100 %] 97 % 96 % 97 % (12/18/20 12:29 PM) (12/18/20 8:07 AM) (12/18/20 7:09 AM) Pulse Rate [55-90 bpm] 102 bpm 101 bpm 107 bpm *H* *H* *H* (12/18/20 12:29 PM) (12/18/20 8:07 AM) (12/18/20 7:09 AM) Blood Pressure [90-138/55-84 mm 178/89 mm Hg 178/89 mm Hg 215/91 mm Hg Hg] *H* *H* *H* (12/18/20 12:30 PM) (12/18/20 12:29 PM) (12/18/20 8:07 AM) Respiratory Rate [16-30 br/min] 18 br/min 18 br/min 18 br/min (12/18/20 12:50 PM) (12/18/20 12:29 PM) (12/18/20 10:2 2 AM) Temperature [96.8-100.4 DegF] 98.5 DegF (12/18/20 7:09 AM) Mode of Delivery (Oxygen) Room air Room air Room a ir (12/18/20 12:29 PM) (12/18/20 8:07 AM) (12/18/20 7:09 AM) Blood pressure sites Arm, left Arm, left Arm, left (12/18/20 12:30 PM) (12/18/20 12:29 PM) (12/18/20 8:07 AM) Temperature Route Oral (12/18/20 7:09 AM) Social History Social History Type Response Smoking Status Current every day smoker entered on: 09/15/17 Sex
--- OUTSIDE RECORDS SUMMARY | 2022-06-28 06:59 | XMS_ITS | Continuity of Care Document ---
:1970 Author Organization [facility] Address [address] [place] [address]- Care Team Providers Name Role Phone Hao MELCHOR, Evelyn Ackerman Primary Care Physician Encounter [facility] Date(s): 04/22/22 - 04/27/[address] [address] Encounter Diagnosis Chronic back pain (Final) - 04/22/22 Discharge Disposition: A-D/C Home Attending Physician: Trina Baires DO Admitting Physician: Shonda Dasilva MD Referring Physician: Not on Staff, Referring MD Allergies, Adverse Reactions, Alerts Substance Reaction Severity Status acetaminophen extremely itchy Active shellfish1 Active MetFORMIN (Eqv-Glumetza) Active Tylenol Active Fish2 Active 1patient reports itchy/tingling [id number] reports itchy/tingling throat Immunizations Given and Recorded [...] OrderedamLODIPine 5 mg oral tablet 5 mg, 1, tablet, By Mouth, Daily, # 30 tablet, Refills 0, Tot. Refills 0, Maintenance, 04/18/22 9:57:00 EDT, Route to Pharmacy Electronically, [facility], Partial fill upon patient request if the prescription is for a schedule II opioid dr... Start Date: 04/18/22 Status: OrderedAspirin Low Dose 81 mg oral delayed release tablet 1 tablet = 81 mg, By Mouth, Daily, 0 Refills, Maintenance, 06/19/20 21:23:00 EDT, EC Tablet Start Date: 06/19/20 Status: OrderedAtivan 2 mg oral tablet 1 tablet = 2 mg, By Mouth, 3 times a day, 0 Refills, Maintenance, 11/18/21 11:34:00 EST, Tablet Start Date: 11/18/21 Status: Orderedbisacodyl 10 mg rectal suppository 1 supp = 10 mg, Rectally, Daily, PRN for constipation, for 10 days, # 10 supp, 0 Refills, Acute 04/28/22 9:59:00 EDT, 04/18/22 9:59:00 EDT, Suppository, [facility], Partial fill upon patient request if the prescription is for a schedule II... Start Date: 04/18/22 Stop Date: 04/28/22 Status: OrderedbuPROPion 300 mg/24 hours (XL) oral tablet, extended release 1 tablet = 300 mg, By Mouth, Daily, Maintenance, 07/06/21 16:29:00 EDT, ER Tablet Start Date: 07/06/21 Status: OrderedCombivent Respimat 20 mcg-100 mcg/inh inhalation aerosol 1 puffs, Inhalation, Every 6 hours, PRN Wheezing/Shortness of Breath, Maintenance, 04/12/22 13:10:00EDT, Aerosol, ; Start Date: 04/12/22 Status: OrderedCulturelle Health and Wellness oral capsule 1 capsule, By Mouth, 2 times a day, Maintenance, 02/08/22 10:59:00 EDT, ; Start Date: 02/08/22 Status: OrderedDeep Sea Nasal 0.65% nasal spray 2 sprays, Nares, Both, Every 2 hours, PRN dry nares, Maintenance, 04/12/22 13:10:00 EDT, ; Start Date: 04/12/22 Status: OrderedDilaudid 2 mg oral tablet 3 mg, Tablet, By Mouth, Every 4 hours, PRN for Pain , Severe, Routine, 04/25/22 11:00:00 EDT Start Date: 04/25/22 Stop Date: 04/27/22 Status: DiscontinuedDilaudid 2 mg oral tablet 1.5 tablet = 3 mg, By Mouth, Every 4 hours, PRN Pain , Severe, for 2 days, # 12 tablet, 0 Refills, Acute 04/29/22 9:54:00 EDT, 04/27/22 9:54:00 EDT, Tablet, [facility], Partial fill upon patient request if the prescription is for a schedul... Start Date: 04/27/22 Stop Date: 04/29/22 Status: OrderedDocusate/Senna Tablet 1 tablet, By Mouth, 2 times a day, PRN Constipation, 0 Refills, Maintenance, 11/18/21 11:32:00 EST, Tablet, ; Start Date: 11/18/21 Status: Orderedfinasteride 5 mg oral tablet 1 tablet = 5 mg, By Mouth, Daily, 0 Refills, Maintenance, 01/26/20 10:51:00 EDT, Tablet Start Date: 01/26/20 Status: OrderedFlovent HFA 110 mcg/inh inhalation aerosol 1 puff, Inhalation, 2 times a day, Maintenance, 04/12/22 13:07:00 EDT, ; Start Date: 04/12/22 Status: Orderedfluticasone 50 mcg/inh nasal spray 1 sprays, Nares, Both, Daily in AM, Maintenance, 02/08/22 11:00:00 EDT, [place], ; Start Date: 02/08/22 Status: Orderedgabapentin 300 mg oral capsule 900 mg, Capsule, By Mouth, AM and at bed time, 04/27/22 9:00:00 EDT Start Date: 04/27/22 Stop Date: 04/27/22 Status: Completedgabapentin 300 mg oral capsule 600 mg, 2, [...] 13:07:00 EDT, ; Start Date: 04/12/22 Status: OrderedMiraLax oral powder for reconstitution = [...] EDT, ; Start Date: 02/08/22 Status: OrderedNystop 049535 u/gm powder 1 application, Topically, 2 times a day, Maintenance, 04/12/22 13:06:00 EDT, Powder, ; Start Date: 04/12/22 Status: Orderedomeprazole 20 mg oral enteric coated capsule 1 capsule = 20 mg, By Mouth, Daily, Maintenance, 04/12/22 13:07:00 EDT, EC Capsule, ; Start Date: 04/12/22 Status: OrderedOxyCONTIN 10 mg oral tablet, extended release 30 mg, ER Tablet, By Mouth, 04/27/22 6:00:00 EDT Start Date: 04/27/22 Stop Date: 04/27/22 Status: CompletedOxyCONTIN 30 mg oral tablet, extended release 1 tablet = 30 mg, By Mouth, Every 12 hours, # 14 tablet, 0 Refills, Maintenance, 02/12/22 10:37:00 EDT, ER Tablet, [facility], Partial fill upon patient request if the prescription is fora schedule II opioid drug., 172, cm, 02/10/22 18:... Start Date: 02/12/22 Stop Date: 02/19/22 Status: OrderedProAir HFA 90 mcg/inh inhalation aerosol [...] Urinary incontinence(Confirmed) Active Vitamin D deficiency(Confirmed) Active Vital Signs Most recent to oldest 1 2 3 [Reference Range]: Height 172.7 cm 172.7 cm 172.7 cm (04/27/22 7:35 AM) (04/26/22 10:58 PM) (04/26/22 6:59 PM) Weight 119 kg 119 kg 119 kg (04/22/22 11:43 AM) (04/22/22 5:49 AM) (04/22/22 4:40 AM) Oxygen Saturation [94-100 %] 99 % 98 % 99 % (04/27/22 7:35 AM) (04/26/22 10:58 PM) (04/26/22 6:59 PM) Pulse Rate [55-90 bpm] 75 bpm 64 bpm 40 bpm (04/27/22 7:35 AM) (04/26/22 10:58 PM) *L* (04/26/22 6:59 PM) Body Mass Index [18.5-24.99] 39.9 39.9 *>HHI* *>HHI* (04/22/22 11:43 AM) (04/22/22 5:49 AM) Blood Pressure [90-138/55-84 mm 122/60 mm Hg 124/64 mm Hg 136/54 mm Hg Hg] (04/27/22 7:35 AM) (04/26/22 10:58 PM) (04/26/22 6:59 PM) Respiratory Rate [16-30 br/min] 18 br/min 18 br/min 18 br/min (04/27/22 8:42 AM) (04/27/22 8:41 AM) (04/27/22 7:4 3 AM) Temperature [96.8-100.4 DegF] 98.3 DegF 98.3 DegF 98 .4 DegF (04/27/22 7:35 AM) (04/26/22 10:58 PM) (04/26/22 6:59 PM) Mode of Delivery (Oxygen) Room air Room air Room a ir (04/27/22 7:35 AM) (04/26/22 10:58 PM) (04/26/22 6:59 PM) Blood pressure sites Arm, right Arm, right Arm, right (04/27/22 7:35 AM) (04/26/22 10:58 PM) (04/26/22 6:59 PM) Temperature Route Oral Oral Oral (04/27/22 7:35 AM) (04/26/22 10:58 PM) (04/26/22 6:59 PM) Dry Weight 119 kg 119 kg 119 kg (04/22/22 11:43 AM) (04/22/22 5:49 AM) (04/22/22 4:40 AM) Social History Social History Type Response Smoking Status Current every day smoker entered on: 09/15/17 Sex
--- OUTSIDE RECORDS SUMMARY | 2022-06-28 06:59 | XMS_ITS | Continuity of Care Document ---
:1970 Author Organization [facility] Address [address] [place] [address]- Care Team Providers Name Role Phone Evelyn Bui MD Primary Care Physician [phone] [place] [facility] [place] 05/13/22 - 05/13/[address] [address]- Discharge Disposition: A-D/C Walkout Attending Physician: Not on Staff, Attending MD Admitting Physician: Not on Staff, Admitting MD Referring Physician: Not on Staff, Referring MD Allergies, Adverse Reactions, Alerts Substance Reaction Severity Status acetaminophen extremely itchy Active shellfish1 Active Fish2 Active MetFORMIN (Eqv-Glumetza) Active Tylenol Active 1patient reports itchy/tingling [id number] reports itchy/tingling throat Immunizations Given and Recorded [...] EDT, ; Start Date: 02/08/22 Status: OrderedNystop 481842 u/gm powder 1 application, Topically, 2 times a day, Maintenance, 04/12/22 13:06:00 EDT, Powder, ; Start Date: 04/12/22 Status: Orderedomeprazole 20 mg oral enteric coated capsule 1 capsule = 20 mg, By Mouth, Daily, Maintenance, 04/12/22 13:07:00 EDT, EC Capsule, ; Start Date: 04/12/22 Status: OrderedOxyCONTIN 30 mg oral tablet, extended release 1 tablet = 30 mg, By Mouth, Every 12 hours, # 14 tablet, 0 Refills, Maintenance, 02/12/22 10:37:00 EDT, ER Tablet, [facility], Partial fill upon patient [...] Most recent to oldest [Reference Range]: 1 2 Height 173 cm 174 cm (05/13/22 4:10 AM) (05/13/22 4:10 AM) Weight 118 kg 118.8 kg (05/13/22 4:10 AM) (05/13/22 4:10 AM) Oxygen Saturation [94-100 %] 98 % (05/13/22 4:10 AM) Pulse Rate [55-90 bpm] 120 bpm *H* (05/13/22 4:10 AM) Body Mass Index [18.5-24.99] 39.24 *>HHI* (8/26/22 4:10 AM) Blood Pressure [90-138/55-84 mm Hg] 156/96 mm Hg *H* (05/13/22 4:10 AM) Respiratory Rate [16-30 br/min] 18 br/min (05/13/22 4:10 AM) Temperature [96.8-100.4 DegF] 99.1 DegF (05/13/22 4:10 AM) Mode of Delivery (Oxygen) Room air (05/13/22 4:10 AM) Blood pressure sites Arm, right (05/13/22 4:10 AM) Temperature Route Oral (05/13/22 4:10 AM) Dry Weight 118 kg (05/13/22 4:10 AM) Weight Obtained Via Patient/family stated (05/13/22 4:10 AM) Social History Social History Type Response Smoking Status Never (less than 100 in life time) entered on: 05/13/22 Sex Care Team PersonnelName: Evelyn Bui MD Address[facility] [address] [facility] [place] [address]
--- OUTSIDE RECORDS SUMMARY | 2022-06-28 06:59 | XMS_ITS | Continuity of Care Document ---
:1970 Author Organization [facility] Address [address] [place] [address]- Care Team Providers Name Role Phone Evelyn Bui MD Primary Care Physician [phone] Encounter [facility] Date(s): 05/01/22 - 05/02/[address] [address]- Encounter Diagnosis Syncope (Final) - 05/01/22 Discharge Disposition: A-D/C AMA Attending Physician: Charlene Cruz MD Admitting Physician: Vince Aguila DO Referring Physician: Not on Staff, Referring MD Allergies, Adverse Reactions, Alerts Substance Reaction Severity Status acetaminophen extremely itchy Active Fish1 Active MetFORMIN (Eqv-Glumetza) Active shellfish2 Active Tylenol Active 1patient reports itchy/tingling [id number] reports itchy/tingling throat Immunizations Given and Recorded [...] 01/26/20 Status: Orderedgabapentin 300 mg oral capsule 300 mg, Capsule, By Mouth, 05/02/22 9:00:00 EDT Start Date: 05/02/22 Stop Date: 05/02/22 Status: Completedgabapentin 300 mg oral capsule 600 [...] EDT, ; Start Date: 02/08/22 Status: OrderedNystop 792576 u/gm powder 1 application, Topically, 2 times [...] Refills, Maintenance, 02/12/22 10:37:00 EDT, ER Tablet, [facility], Partial fill upon patient [...] 3 [Reference Range]: Oxygen Saturation [94-100 %] 95 % 100 % 98 % (05/02/22 11:45 AM) (05/01/22 7:53 PM) (05/01/22 4: 10 PM) Pulse Rate [55-90 bpm] 83 bpm 97 bpm 86 bpm (05/02/22 11:45 AM) *H* (05/01/22 4:10 PM) (05/01/22 7:53 PM) Blood Pressure [90-138/55-84 157/81 mm Hg 150/85 mm Hg 154 /77 mm Hg mm Hg] *H* *H* *H* (05/02/22 11:45 AM) (05/01/22 7:53 PM) (05/01/22 4: 10 PM) Respiratory Rate [16-30 16 br/min 20 br/min 18 br/mi n br/min] (05/02/22 11:46 AM) (05/02/22 11:45 AM) (05/02/22 7 :20 AM) Temperature [96.8-100.4 DegF] 98.3 DegF 98.7 DegF 98 .3 DegF (05/02/22 11:45 AM) (05/01/22 7:53 PM) (05/01/22 1: 56 PM) Mode of Delivery (Oxygen) Room air Room air Room a ir (05/02/22 11:45 AM) (05/01/22 7:53 PM) (05/01/22 4: 10 PM) Temperature Route Oral Oral Oral (05/02/22 11:45 AM) (05/01/22 7:53 PM) (05/01/22 1: 56 PM) Social History Social History Type Response Smoking Status Current every day smoker entered on: 09/15/17 Sex
[2022-06-28 07:00] LABS: COVID-19 Test Negative (Negative); IDNOW Serial# 16C4AD1C
--- OUTSIDE RECORDS SUMMARY | 2022-06-28 07:00 | XMS_ITS | Continuity of Care Document ---
:1970 Author Organization [facility] Address [address] [place] [address]- Care Team Providers Name Role Phone Sobia Khalil DO Primary Care Physician [place] [facility] [place] - 09/13/[address] [address]- Encounter Diagnosis abdominal pain (Final) - 09/13/20 Discharge Disposition: A-D/C Home Attending Physician: Trina Fischer MD Admitting Physician: Trina Fischer MD Referring Physician: Not on Staff, Referring [...] EDT, SR Tablet Start Date: 01/26/20 Status: OrderedDilaudid Inj 1 mg, Injection, IV Push Slowly, Every 15 minutes for 3 doses/times, PRN for Pain , Moderate, and SBP greater than 100, STAT, 09/13/20 8:13:00 EST, Stop date Limited # of times Start Date: 09/13/20 Status: Orderedfinasteride 5 mg oral tablet 1 [...] 15:44:00 EDT, Tablet Start Date: 05/23/20 Status: Orderedondansetron 4 mg oral tablet, disintegrating [...] 2 3 [Reference Range]: Oxygen Saturation [94-100 97 % 98 % %] (09/13/20 11:59 AM) (09/13/20 7:44 AM) Pulse Rate [55-90 bpm] 112 bpm 115 bpm *H* *H* (09/13/20 11:59 AM) (09/13/20 7:44 AM) Blood Pressure 184/93 mm Hg 205/96 mm Hg [90-138/55-84 mm Hg] *H* *H* (09/13/20 11:59 AM) (09/13/20 7:44 AM) Respiratory Rate [16-30 20 br/min 22 br/min 18 br/mi n br/min] (09/13/20 12:29 PM) (09/13/20 11:59 AM) ( 0 9:42 AM) Temperature [96.8-100.4 98.4 DegF 99.5 DegF DegF] (09/13/20 11:59 AM) (09/13/20 7:46 AM) Mode of Delivery (Oxygen) Room air Room air (09/13/20 11:59 AM) (09/13/20 7:44 AM) Blood pressure sites Arm, left Arm, left (09/13/20 11:59 AM) (09/13/20 7:44 AM) Temperature Route Oral Oral (09/13/20 11:59 AM) (09/13/20 7:46 AM) Social History Social History Type Response Smoking Status Current every day smoker entered on: 09/15/17 Sex
--- OUTSIDE RECORDS SUMMARY | 2022-06-28 07:00 | XMS_ITS | Continuity of Care Document ---
:1970 Author Organization [facility] Address [address] [place] [id number]- Care Team Providers Name Role Phone Geovany AUSTIN, Maria Antonia Primary Care Physician [place] [facility] [place] - 12/03/[address] [id number] Encounter Diagnosis Musculoskeletal back pain (Final) - 11/22/21 Discharge Disposition: A-D/C Home Attending Physician: Bigg Wang MD Admitting Physician: Alma Rosa MELCHOR, Rodrigo Referring Physician: Not on Staff, Referring MD Allergies, Adverse Reactions, Alerts Substance Reaction Severity Status acetaminophen extremely itchy Active MetFORMIN (Eqv-Glumetza) Active Tylenol Active Immunizations Given and Recorded Vaccine Date [...] 07/06/21 Status: Orderedgabapentin 300 mg oral capsule 600 mg, Capsule, By Mouth, 12/03/21 15:00:00 EDT Start Date: 12/03/21 Stop Date: 12/03/21 Status: Completedgabapentin 300 mg oral capsule 900 mg, 3, [...] Refills, Maintenance, 11/03/21 12:11:00 EST, EC Tablet, [facility] 3, Partial fill upon patient request [...] 4 hours, PRN as needed for pain, for 3 days, # 18 tablet, 0 Refills, Acute 12/06/21 15:25:00 EDT, 12/03/21 15:25:00 EDT, Tablet, [facility], Partial fillupon patient request if the prescription is for a... Start Date: 12/03/21 Stop Date: 12/06/21 Status: OrderedoxyCODONE 5 mg oral tablet 20 mg, Tablet, By Mouth, Every 4 hours, PRN for Pain , Moderate, Routine, 11/30/21 7:34:00 EDT Start Date: 11/30/21 Stop Date: 12/04/21 Status: DiscontinuedOxyCONTIN 30 mg oral tablet, extended release 1 tablet = 30 mg, By Mouth, Every 12 hours, # 6 tablet, 0 Refills, Maintenance, 12/03/21 15:53:00 EDT, ER Tablet, [facility] 3, Partial fill upon patient request [...] 0 Refills, Maintenance, 12/03/21 11:50:00 EDT, Solution, [facility] 3, Partial fill upon patient request if the prescription is for a schedule II opioid drug., aleida Cordero, ... Start Date: 12/03/21 Status: OrderedVitamin D3 [...] for Microbiology Reports Name Date Blood Culture 12/02/21 Blood Culture #2 12/02/21 Urine Culture (URINE CULTURE) 11/24/21 Microbiology Reports TEST:Blood Culture, Second Order STATUS:Unauthenticated BODY SITE: SOURCE:Blood COLLECTED DATE/TIME:12/02/21 1:32 PMBlood Culture, Second Order SPECIMEN DESCRIPTION : BLOOD R SPECIAL REQUESTS : NONE CULTURE : NO GROWTH AFTER 24 HOURS REPORT STATUS : PRELIMINARY REPORT TEST:Blood Culture STATUS:Unauthenticated BODY SITE: SOURCE:Blood COLLECTED DATE/TIME:12/02/21 1:30 PMBlood Culture SPECIMEN DESCRIPTION : BLOOD L SPECIAL REQUESTS : NONE CULTURE : NO GROWTH AFTER 24 HOURS REPORT STATUS : PRELIMINARY REPORT TEST:Urine Culture STATUS:Auth (Verified) BODY SITE: SOURCE:URINE COLLECTED DATE/TIME:11/24/21 1:30 AMUrine Culture SPECIMEN DESCRIPTION : URINE SPECIAL REQUESTS : NONE CULTURE : >100,000 COL/ML KLEBSIELLA PNEUMONIAE This isolate was identified using Maldi-TOF system These AST results were performed on the Techoz ID and AST system REPORT STATUS : FINAL 11/26/2021 ORGANISM >100,000 COL/ML KLEBSIELLA PNEUMONIAE This isolate was identified using Maldi-TOF system METHOD MIN. INHIB. CONC. (MCG/ML) AMPICILLIN RESISTANT AMPICILLIN/SULBACTAM RESISTANT AMOXICILLIN/CLAVULAN SUSCEPTIBLE CEFAZOLIN INTERMEDIATE CEFEPIME SUSCEPTIBLE CEFTRIAXONE SUSCEPTIBLE CIPROFLOXACIN SUSCEPTIBLE ERTAPENEM SUSCEPTIBLE GENTAMICIN SUSCEPTIBLE LEVOFLOXACIN SUSCEPTIBLE MEROPENEM SUSCEPTIBLE NITROFURANTOIN INTERMEDIATE PIPERACILLIN/TAZOBAC RESISTANT TRIMETH/SULFAMETHOX SUSCEPTIBLE TETRACYCLINE RESISTANTRadiology Reports Exam Date Time Procedure Performing Provider Status 12/02/21 11:29 AM Chest Portable Joslyn Delcid; Auth (Verified ) Notes:(Chest Portable) Reason For Exam: FeverRESULT: Chest Portable Chest Portable Reason: Fever; Clinical Question(s): Pneumonia COMPARISON: Multiple priors, the most recent 09/29/2021 FINDINGS: LINES AND TUBES: None. LUNGS AND PLEURA: Imaging of the left hemithorax is limited by patient rotation and body habitus. The left hemidiaphragm is not well delineated. Lungs are otherwise clear with normal vascularity. No right pleural effusion. Left costophrenic angle not visualized well. No pneumothorax. HEART, MEDIASTINUM AND BRIGHT: Heart size is grossly normal for this technique. Normal upper mediastinal and hilar contour. BONES AND SOFT TISSUES: No acute abnormality. IMPRESSION: Possible left lung base atelectasis but evaluation of the lower left hemithorax is limited by patient rotation and body habitus. Otherwise normal examination. WSN: [id number] Ordering Physician: Funmi Chua Dictated By: Peter Alex MD Dictated Date/Time: 12/02/21 2:32 pm Reviewed By: Peter Alex MD Signed By: Peter Alex MD Signed Date/Time: 12/02/21 2:32 pm Transcribed By: LESLEE Transcribed Date/Time: 12/02/21 2:30 pm Exam Date Time Procedure Performing Provider Status 12/02/21 6:03 AM Knee 1 or 2 Views Right Eliceo Buchanan; Auth (V erified) Notes:(Knee 1 or 2 Views Right) Reason For Exam: PainRESULT: Knee 1 or 2 Views Right Knee 1 or 2 Views Right, 2 views Reason: Pain; Clinical Question(s): Fracture FINDINGS: No fracture or dislocation. Mild to moderate spurs within joint. Mild lateral subluxation of tibia with respect to distal femur.Small calcification related to proximal-posterior aspect of the tibia, could be spur, could be loosebody within joint. IMPRESSION: Mild generative changes. Possible loose body within joint. WSN: [id number] Ordering Physician: Jaquan Benitez Dictated By: Kalpesh Erickson MD Dictated Date/Time: 12/02/21 8:59 am Reviewed By: Kalpesh Erickson MD Signed By: Kalpesh Erickson MD Signed Date/Time: 12/02/21 8:59 am Transcribed By: LESLEE Transcribed Date/Time: 12/02/21 8:56 am Vital Signs Most recent to oldest 1 2 3 [Reference Range]: Weight 135.5 kg 136.9 kg 135.3 kg (12/02/21 4:00 AM) (11/30/21 4:00 AM) (11/29/21 4:0 0 AM) Oxygen Saturation [94-100 %] 94 % 95 % 95 % (12/03/21 9:00 AM) (12/03/21 4:58 AM) (12/02/21 8:5 3 PM) Pulse Rate [55-90 bpm] 72 bpm 71 bpm 70 bpm (12/03/21 9:00 AM) (12/03/21 4:58 AM) (12/02/21 8:5 3 PM) Blood Pressure [90-138/55-84 133/60 mm Hg 145/67 mm Hg 108 /37 mm Hg mm Hg] (12/03/21 9:00 AM) *H* (12/02/21 8:53 PM) (12/03/21 4:58 AM) Respiratory Rate [16-30 18 br/min 18 br/min 18 br/mi n br/min] (12/03/21 3:36 PM) (12/03/21 3:36 PM) (12/03/21 11: 00 AM) Temperature [96.8-100.4 DegF] 98.2 DegF 98.9 DegF 98 .6 DegF (12/03/21 9:00 AM) (12/03/21 4:58 AM) (12/02/21 8:5 3 PM) Mode of Delivery (Oxygen) Room air Room air Room a ir (12/03/21 9:00 AM) (12/03/21 4:58 AM) (12/02/21 8:5 3 PM) Blood pressure sites Arm, right Arm, right Arm, right (12/03/21 9:00 AM) (12/03/21 4:58 AM) (12/02/21 8:5 3 PM) Temperature Route Oral Oral Oral (12/03/21 9:00 AM) (12/03/21 4:58 AM) (12/02/21 8:5 3 PM) Weight Obtained Via Bed scale Bed scale Bed scale (12/02/21 4:00 AM) (11/30/21 4:00 AM) (11/29/21 4:0 0 AM) Social History Social History Type Response Smoking Status Current every day smoker entered on: 09/15/17 Sex
--- OUTSIDE RECORDS SUMMARY | 2022-06-28 07:00 | XMS_ITS | Continuity of Care Document ---
:1970 Author Organization [facility] Address [address] [place] [id number]- Care Team Providers Name Role Phone Julianabeatriz Sobia HEREDIA Primary Care Physician [place] [facility] [place] Date(s): 09/22/21 - 09/22/[address] [address]- Discharge Disposition: A-D/C Walkout Attending Physician: Not [...] EDT, ER Tablet Start Date: 07/06/21 Status: Orderedceftriaxone 2 gm/50 ml intravenous solution = 2 Gm, IV Infusion, Daily, # 35 each, 0 Refills, Acute 09/25/21 11:42:00 EST, 08/22/21 11:42:00 EST, Partial fill upon patient request if the prescription is for a schedule II opioid drug. Start Date: 08/22/21 Stop Date: 09/25/21 Status: Orderedchlorthalidone 25 mg oral tablet 25 mg, 1, tablet, By Mouth, Daily, Maintenance, 07/06/21 16:34:00 EDT Start Date: 07/06/21 Status: Orderedfinasteride 5 mg [...] Status: Orderedinsulin lispro 100 u/ml subcutaneous injection 22-36 units, Subcutaneous Injection, 3 times a day before meals, << Sliding Scale Comments >> 100 - 139 22 units Call if less than 70 140 - 179 24 units 180 - 219 26 units 220 - 259 28 units 260 - 299 30 units 300 - 339 32 units... Start Date: 07/27/21 Status: Orderedlamotrigine 200 mg oral tablet 1 tablet = 200 mg, By Mouth, Daily at bedtime, Maintenance, 07/06/21 16:32:00 EDT, Tablet Start Date: 07/06/21 Status: Orderedloratadine 10 mg oral tablet 10 mg, 1, tablet, By Mouth, Daily, Maintenance, 07/06/21 16:33:00 EDT Start Date: 07/06/21 Status: OrderedLORazepam 2 mg oral tablet 1 tablet = 2 mg, By Mouth, 3 times a day, PRN as needed for anxiety Start Date: 06/02/21 Status: Orderednabumetone 500 mg oral tablet 1 tablet = 500 mg, By Mouth, 2 times a day, Maintenance, 07/06/21 16:35:00 EDT, Tablet Start Date: 07/06/21 Status: OrderedNyamyc 100,000 units/g topical powder 1 application, Topically, 2 times a day, Maintenance, 07/06/21 16:35:00 EDT, Powder Start Date: 07/06/21 Status: OrderedoxyCODONE 15 mg oral tablet 1 tablet = 15 mg, By Mouth, Every 6 hours, PRN as needed for pain, 0 Refills, Maintenance, 08/31/21 8:41:00 EST, Tablet, Partial fill upon patient request if the prescription is for a schedule II opioid drug. Start Date: 08/31/21 Status: OrderedOxyCONTIN 20 mg oral tablet, extended release 20 mg, 1, tablet, By Mouth, Every 12 hours, Refills 0, Tot. Refills 0, Maintenance, 08/22/21 9:37:00EST, Partial fill upon patient request if the prescription is for a schedule II opioid drug. Start Date: 08/22/21 Status: Orderedpropranolol 120 mg oral capsule, extended [...] 0 Refills, Maintenance, 07/27/21 14:56:00 EST, Solution, [facility] 3, Partial fill upon patient request if the prescription is for a schedule II opioid drug., 172, cm, 07/27/21 11:14:00... Start Date: 07/27/21 Status: Orderedvancomycin 1.25 g intravenous injection = 1.25 Gm, IV Infusion, Every 24 hours, # 34 each, 0 Refills, Acute 09/25/21 11:43:00 EST, 08/22/21 11:43:00 EST, Partial fill upon patient request if the prescription is for a schedule II opioid drug. Start Date: 08/22/21 Stop Date: 09/25/21 Status: OrderedVitamin D3 2000 intl units oral [...] recent to oldest [Reference Range]: 1 2 Oxygen Saturation [94-100 %] 99 % 98 % (09/22/21 6:06 AM) (09/22/21 4:11 AM) Pulse Rate [55-90 bpm] 108 bpm 113 bpm *H* *H* (09/22/21 6:06 AM) (09/22/21 4:11 AM) Blood Pressure [90-138/55-84 mm Hg] 155/98 mm Hg 162/ 95 mm Hg *H* *H* (09/22/21 6:06 AM) (09/22/21 4:11 AM) Respiratory Rate [16-30 br/min] 20 br/min 20 br/mi n (09/22/21 6:06 AM) (09/22/21 4:11 AM) Temperature [96.8-100.4 DegF] 98.5 DegF 98.4 DegF (09/22/21 6:06 AM) (09/22/21 4:11 AM) Mode of Delivery (Oxygen) Room air Room air (09/22/21 6:06 AM) (09/22/21 4:11 AM) Blood pressure sites Arm, left (09/22/21 4:11 AM) Temperature Route Oral Oral (09/22/21 6:06 AM) (09/22/21 4:11 AM) Social History Social History Type Response Smoking Status Current every day smoker entered on: 09/15/17 Sex
--- OUTSIDE RECORDS SUMMARY | 2022-06-28 07:00 | XMS_ITS | Continuity of Care Document ---
:1970 Author Organization [facility] Address [address] [place] [id number]- Care Team Providers Name Role Phone Simran Cuco HEREDIAjana Primary Care Physician Encounter [facility] [place] Date(s): 12/15/20 - 01/14/21 [facility] [address] [place] [id number] Attending Physician: Moses Turner Admitting Physician: Moses Turner Referring Physician: AdmtrMoses Allergies, Adverse Reactions, Alerts Substance Reaction Severity [...] II opioid drug. Start Date: 11/11/20 Status: Orderedfinasteride 5 mg oral tablet 1 [...] drug. Start Date: 11/11/20 Status: Orderednystatin topical 383123 u/gm cream 1 application, Topically, 2 times [...] Most recent to oldest [Reference Range]: 1 Oxygen Saturation [94-100 %] 99 % (11/12/20 5:00 PM) Blood Pressure [90-138/55-84 mm Hg] 99/58 mm Hg (11/12/20 5:00 PM) Respiratory Rate [16-30 br/min] 21 br/min (11/12/20 5:00 PM) Temperature [96.8-100.4 DegF] 97.2 DegF (11/12/20 5:00 PM) Liters per Minute 6 L/min (11/12/20 5:00 PM) Mode of Delivery (Oxygen) Simple face mask (11/12/20 5:00 PM) Blood pressure sites Arm, left (11/12/20 5:00 PM) Temperature Route Temporal (11/12/20 5:00 PM) Social History Social History Type Response Smoking Status Current every day smoker entered on: 09/15/17 Sex Female
--- OUTSIDE RECORDS SUMMARY | 2022-06-28 07:00 | XMS_ITS | Continuity of Care Document ---
:1970 Author Organization [facility] Address [address] [place] [phone]- Care Team Providers Name Role Phone Sobia Khalil DO Primary Care Physician [place] [facility] [place] - 08/27/20 [facility] [address] [place] [id number] Attending Physician: Roselia Webb MD Admitting Physician: Roselia Webb MD Allergies, Adverse Reactions, Alerts Substance Reaction [...] EDT, SR Tablet Start Date: 01/26/20 Status: Orderedfinasteride 5 mg oral tablet 1 [...]
--- OUTSIDE RECORDS SUMMARY | 2022-06-28 07:00 | XMS_ITS | Continuity of Care Document ---
:1970 Author Organization [facility] Address [address] [place] [address]- Care Team Providers Name Role Phone Sobia Khalil DO Primary Care Physician Encounter [facility] [place] Date(s): 10/19/20 - 12/12/20 [facility] [address] [place] [id number] Attending Physician: Trudy Vidales DO Admitting Physician: Trudy Vidales DO Referring Physician: Sobia Khalil DO Allergies, Adverse [...] Suspension Start Date: 01/26/20 Status: Orderednystatin topical [id number] u/gm cream 1 application, Topically, 2 times [...]
--- OUTSIDE RECORDS SUMMARY | 2022-06-28 07:00 | XMS_ITS | Continuity of Care Document ---
:1970 Author Organization [facility] Address [address] [place] [address]- Care Team Providers Name Role Phone Simran Sobia HEREDIA Primary Care Physician Encounter [facility] Date(s): 09/23/21 - 10/23/21 [facility] [address] [place] [id number] Attending Physician: Moses Turner Admitting Physician: AdmMoses tanner Referring Physician: AdmtrMoses Allergies, Adverse Reactions, Alerts [...] 0 Refills, Maintenance, 07/27/21 14:56:00 EST, Solution, [facility] 3, Partial fill upon patient request if [...]
--- OUTSIDE RECORDS SUMMARY | 2022-06-28 07:00 | XMS_ITS | Continuity of Care Document ---
:1970 Author Organization [facility] Address [address] [place] [address]- Care Team Providers Name Role Phone Geovany AUSTIN, Maria Antonia Primary Care Physician Encounter [facility] [place] Date(s): 01/08/22 - 01/17/[address] [address]- Encounter Diagnosis Sepsis (Final) - 01/07/22 Hypoxia (Final) - 01/08/22 Hyponatremia (Final) - 01/08/22 Discharge Disposition: A-Transfer VNA/Home Health Attending Physician: Doug MELCHOR, Ashwin Alejandre Admitting Physician: Duane Hernandez MD Referring Physician: Not on Staff, Referring [...] lot number and exp not entered Medications Aspirin Low Dose 81 mg oral delayed release [...] II opioid drug. Start Date: 11/18/21 Status: Orderedferrous sulfate 325 mg oral enteric coated tablet 325 mg, By Mouth, Daily, # 30 tablet, Refills 0, Tot. Refills 0, Maintenance, 01/17/22 9:08:00 EDT, Route to Pharmacy Electronically, [facility], Partial fill upon patient request if the prescription is for a schedule II opioid drug., 5.6,... Start Date: 01/17/22 Stop Date: 02/16/22 Status: Orderedfinasteride 5 mg oral tablet 1 [...] Refills, Maintenance, 11/03/21 12:11:00 EST, EC Tablet, [facility] 3, Partial fill upon patient request [...] II opioid drug. Start Date: 12/27/21 Status: OrderedoxyCODONE 5 mg oral tablet 20 mg, Tablet, By Mouth, Every 4 hours for 7 days, PRN for Pain , Moderate, Routine, 01/08/22 13:03:00 EDT, Stop date 01/22/22 13:02:00 EDT Start Date: 01/08/22 Stop Date: 01/17/22 Status: DiscontinuedOxyCONTIN 30 mg oral tablet, extended release 1 tablet = 30 mg, By Mouth, Every 12 hours, # 6 tablet, 0 Refills, Maintenance, 12/03/21 15:53:00 EDT, ER Tablet, [facility], Partial fill upon patient request if the prescription is for a schedule II opioid drug., 172, cm, 11/18/21 8:12... Start Date: 12/03/21 Stop Date: [...] schedule II... Start Date: 09/29/21 Status: OrderedTresiba 100 units/mL subcutaneous solution = 20 units, Subcutaneous Infusion, Daily at bedtime, # 10 mL, 0 Refills, Maintenance, 01/17/22 9:04:00 EDT, Partial fill upon patient request if the prescription is for a schedule II opioid drug. Start Date: 01/17/22 Stop Date: 02/16/22 Status: OrderedVitamin D3 2000 intl units oral [...] for Microbiology Reports Name Date Blood Culture 01/07/22 Blood Culture #2 01/07/22 Microbiology Reports TEST:Blood Culture STATUS:Auth (Verified) BODY SITE: SOURCE:Blood COLLECTED DATE/TIME:01/07/22 9:26 PMBlood Culture SPECIMEN DESCRIPTION : BLOOD NO SITE SPECIAL REQUESTS : NONE CULTURE : NO GROWTH 5 DAYS. REPORT STATUS : FINAL 01/13/2022TEST:Blood Culture, Second Order STATUS:Auth (Verified) BODY SITE: SOURCE:Blood COLLECTED DATE/TIME:01/07/22 9:26 PMBlood Culture, Second Order SPECIMEN DESCRIPTION : BLOOD NO SITE SPECIAL REQUESTS : NONE CULTURE : NO GROWTH 5 DAYS. REPORT STATUS : FINAL 2Radiology Reports Exam Date Time Procedure Performing Provider Status 01/11/22 6:26 PM Abdomen AP Pratik Navarro; Auth (Verified) Notes:(Abdomen AP) Reason For Exam: Nausea/VomitingRESULT: XR Abdomen AP XR Abdomen AP 1 view INDICATION/CLINICAL QUESTION: Reason: Nausea Vomiting; Clinical Question(s): Obstruction COMPARISON: None FINDINGS: Please note that the study slightly limited secondary to patient body habitus and suboptimal inclusion of the bilateral flanks. Nonspecific bowel gas pattern. No evidence of supine pneumoperitoneum. Apparent transverse lucency in the upper abdomen is likely related to abdominal wall folds. No organomegaly, masses or calcifications. No acute bone findings. IMPRESSION: Limited study. Nonspecific bowel gas pattern. WSN: [id number] Ordering Physician: Suzy Wan Dictated By: Paige Miramontes MD Dictated Date/Time: 01/11/22 7:00 pm Reviewed By: Paige Miramontes MD Signed By: Paige Miramontes MD Signed Date/Time: 01/11/22 7:00 pm Transcribed By: LESLEE Transcribed Date/Time: 01/11/22 6:58 pm Exam Date Time Procedure Performing Provider Status 01/11/22 6:26 PM Chest Portable Hank Navarro (Verified) Notes:(Chest Portable) Reason For Exam: Shortness of BreathRESULT: Chest Portable Chest Portable Reason: Shortness of Breath; Clinical Question(s): CHF COMPARISON: Priors, most recent dated 01/09/2022 FINDINGS: LINES AND TUBES: None. LUNGS AND PLEURA: Imaging of the left lung base is limited by patient rotation and probable prominent epicardiac fat pad. No definite focal consolidation seen. No pleural effusion. No pneumothorax. HEART, MEDIASTINUM AND BRIGHT: Prominence of the cardiac silhouette is likely partly due to AP technique. Evaluation of the mediastinum and hilar structures is slightly limited by patient rotation however grossly appears stable. BONES AND SOFT TISSUES: No acute abnormality. IMPRESSION: Apparent left basilar opacity is likely artifactual secondary to patient rotation and prominent epicardiac fat pad, less likely to represent pleural effusion/atelectasis or consolidation. Consider follow-up with PA and lateral chest radiographs. WSN: [id number] Ordering Physician: Suzy Wan Dictated By: Paige Miramontes MD Dictated Date/Time: 01/11/22 6:50 pm Reviewed By: Paige Miramontes MD Signed By: Paige Miramontes MD Signed Date/Time: 01/11/22 6:50 pm Transcribed By: LESLEE Transcribed Date/Time: 01/11/22 6:40 pm Exam Date Time Procedure Performing Provider Status 01/09/22 1:45 AM Chest Portable Jimena Kan; Rhonda (Verified) Notes:(Chest Portable) Reason For Exam: Other:;Other:pneumonia, atelectasis, fluid overloadRESULT: Chest Portable Chest Portable Reason: Pneumonia, atelectasis, fluid overload. COMPARISON: 01/07/2022. FINDINGS: LINES AND TUBES: None. LUNGS AND PLEURA: New fairly extensive left-sided airspace and interstitial opacity. Small left-sided pleural effusion appears somewhat loculated laterally. No pneumothorax. HEART, MEDIASTINUM AND BRIGHT: Heart is normal in size. Normal upper mediastinal and hilar contour. BONES AND SOFT TISSUES: No acute abnormality. IMPRESSION: Probable multifocal left-sided pneumonia. Query aspiration. WSN: [id number] Ordering Physician: Bouchra Perkins Dictated By: Nicholas Duran MD Dictated Date/Time: 01/09/22 8:25 am Reviewed By: Nicholas Duran MD Signed By: Nicholas Duran MD Signed Date/Time: 01/09/22 8:25 am Transcribed By: LESLEE Transcribed Date/Time: 01/09/22 8:24 am Exam Date Time Procedure Performing Provider Status 01/07/22 10:24 PM Chest Portable Flavia Ortega; Auth (Verified ) Notes:(Chest Portable) Reason For Exam: Shortness of BreathRESULT: Chest Portable Chest Portable Hx of Present Illness: Shortness of Breath; Clinical Question(s): CHF COMPARISON: 12/27/2021. FINDINGS: LINES AND TUBES: None. LUNGS AND PLEURA: Low lung volumes with mild basilar atelectasis. Lungs are otherwise clear with no consolidation. No pleural effusion. No pneumothorax. HEART, MEDIASTINUM AND BRIGHT: Heart is normal in size. Normal upper mediastinal and hilar contour. BONES AND SOFT TISSUES: No acute abnormality. IMPRESSION: No acute abnormality. WSN: [id number] Ordering Physician: Panda Moya Dictated By: Harsha Toney MD Dictated Date/Time: 01/07/22 10:38 p Reviewed By: Harsha Toney MD Signed By: Harsha Toney MD Signed Date/Time: 01/07/22 10:38 pm Transcribed By: LESLEE Transcribed Date/Time: 01/07/22 10:37 pm Vital Signs Most recent to oldest 1 2 3 [Reference Range]: Height 5.6 cm 5.6 cm 5.6 cm (01/17/22 11:27 AM) (01/16/22 11:01 PM) (01/16/22 4:52 PM) Weight 127 kg (01/09/22 4:00 AM) Oxygen Saturation [94-100 %] 99 % 100 % 95 % (01/17/22 11:27 AM) (01/17/22 11:00 AM) (01/16/22 11:0 1 PM) Pulse Rate [55-90 bpm] 106 bpm 99 bpm 105 bpm *H* *H* *H* (01/17/22 11:27 AM) (01/17/22 11:00 AM) (01/16/22 11:0 1 PM) Blood Pressure [90-138/55-84 mm 174/76 mm Hg 152/77 mm Hg 150/61 mm Hg Hg] *H* *H* *H* (01/17/22 11:27 AM) (01/17/22 11:00 AM) (01/16/22 11:0 1 PM) Respiratory Rate [16-30 br/min] 18 br/min 19 br/min 20 br/min (01/17/22 11:27 AM) (01/17/22 11:00 AM) (01/17/22 10:5 6 AM) Temperature [96.8-100.4 DegF] 98.5 DegF 98.1 DegF 98 .3 DegF (01/17/22 11:27 AM) (01/17/22 11:00 AM) (01/16/22 11:0 1 PM) Liters per Minute 4 L/min 4 L/min 4 L/min (01/12/22 6:00 PM) (01/12/22 1:00 PM) (01/12/22 6:0 0 AM) Mode of Delivery (Oxygen) Room air Room air Room a ir (01/17/22 11:27 AM) (01/16/22 11:01 PM) (01/16/22 4:52 PM) Blood pressure sites Arm, right Arm, right Arm, left (01/17/22 11:27 AM) (01/16/22 11:01 PM) (01/16/22 4:52 PM) Temperature Route Oral Oral Oral (01/17/22 11:27 AM) (01/17/22 11:00 AM) (01/16/22 11:0 1 PM) Dry Weight 127 kg (01/09/22 4:00 AM) Social History Social History Type Response Smoking Status Current every day smoker entered on: 09/15/17 Sex
--- OUTSIDE RECORDS SUMMARY | 2022-06-28 07:00 | XMS_ITS | Continuity of Care Document ---
:1970 Author Organization [facility] Address [address] [place] [address]- Care Team Providers Name Role Phone Sobia Khalil DO Primary Care Physician Encounter [facility] [place], [place] Date(s): 05/25/20 - 05/29/[address] [address]- [facility] Discharge Disposition: A-D/C Home Attending Physician: Luzmaria Marcelino MD Admitting Physician: Luzmaria Marcelino MD Referring Physician: Not on Staff, Referring MD Allergies, Adverse Reactions, Alerts Substance Reaction Severity Status acetaminophen extremely itchy Active Immunizations Given and Recorded Vaccine Date Status Refusal Reason pneumococcal 23-valent vaccine1 05/26/20 Given Hepatitis B Vaccine (old term) 03/22/08 Given 1Result Comment: vial discarded accidenetally and lot number and exp not entered Medications Albuterol 0.083% inhalation luisa 2.5 mg, 3, mL, Neb, Every 4 hours, PRN, Refills 0, Maintenance, Wheezing/Shortness of Breath, 01/26/20 10:51:00 EDT, Inhalation Solution Start Date: 01/26/20 Status: OrderedbuPROPion 150 mg/12 hours (SR) oral tablet, extended release 1 tablet = 150 mg, By Mouth, 2 times a day, 0 Refills, Maintenance, 01/26/20 10:51:00 EDT, SR Tablet Start Date: 01/26/20 Status: Orderedcyclobenzaprine 10 mg oral tablet 10 mg, 1, tablet, By Mouth, 3 times a day, for 30 days, # 90 tablet, Refills 1, Tot. Refills 1, Acute 07/28/20 12:56:00 EST, 05/29/20 12:56:00 EDT, Route to Pharmacy Electronically, [facility], 173, cm, 05/29/20 11:31:00 EDT, Height, 141... Start Date: 05/29/20 Stop Date: 07/28/20 Status: OrderedDilaudid 2 mg oral tablet 1 tablet = 2 mg, By Mouth, Every 4 hours, PRN Pain , Moderate, for 14 days, # 84 tablet, 0 Refills, Acute 06/12/20 12:49:00 EDT, 05/29/20 12:49:00 EDT, Tablet, Partial fill upon patient request Start Date: 05/29/20 Stop Date: 06/12/20 Status: Ordereddoxycycline hyclate 100 mg oral capsule = 100 mg, By Mouth, Every 12 hours, for 4 days, # 7 tablet, 0 Refills, Acute 06/02/20 12:56:00 EDT, 05/29/20 12:56:00 EDT, Capsule, [facility], 173, cm, 05/29/20 11:31:00 EDT, Height, 141, kg, 05/25/20 14:24:00 EDT, Dry Weight Start Date: 05/29/20 Stop Date: 06/02/20 Status: Orderedfinasteride 5 mg oral tablet 1 tablet = 5 mg, By Mouth, Daily, 0 Refills, Maintenance, 01/26/20 10:51:00 EDT, Tablet Start Date: 01/26/20 Status: Orderedgabapentin 300 mg oral capsule 900 mg, 3, capsule, By Mouth, 3 times a day, # 90 capsule, Refills 0, Maintenance, 01/27/20 12:16:00EDT Start Date: 01/27/20 Status: OrderedInsulin Glargine Inj 0.74 mL = 74 units, Subcutaneous Injection, Daily, 0 Refills, Maintenance, 05/22/20 13:05:00 EDT, Injection Start Date: 05/22/20 Status: OrderedInsulin Lispro 3-15 units, Subcutaneous Injection, [...] 12:49:00 EDT, Patch Start Date: 05/22/20 Status: OrderedMaalox Plus Liquid 30 mL, By Mouth, Every 4 hours, PRN Dyspepsia, 0 Refills, Maintenance, 01/26/20 10:49:00 EDT, Suspension Start Date: 01/26/20 Status: Orderednabumetone 500 mg oral tablet 1 tablet = 500 mg, By Mouth, 2 times a day, PRN Pain , Moderate, # 60 tablet, 0 Refills, Maintenance, 05/23/20 15:44:00 EDT, Tablet Start Date: 05/23/20 Status: Orderednystatin topical 809606 u/gm powder 1 application, Topically, 2 times a day, for 30 days, # 30 Gm, 1 Refills, Acute 07/28/20 12:57:00 EST, 05/29/20 12:57:00 EDT, Powder, [facility], 1 application Topically 2 times a day,[id number], 173, cm, 05/29/20 11:31:00 EDT, Height, 141... Start Date: 05/29/20 Stop Date: 07/28/20 Status: Orderedondansetron 4 mg oral tablet, disintegrating = 4 mg, By Mouth, Every 6 hours, PRN Nausea & Vomiting, 0 Refills, Maintenance, 01/26/20 10:49:00 EDT, Tablet Start Date: 01/26/20 Status: OrderedOxyCONTIN 20 mg oral tablet, extended release 20 mg, 1, tablet, By Mouth, Every 12 hours, # 14 tablet, Refills 0, Tot. Refills 0, Maintenance, 05/23/20 16:05:00 EDT, Print Requisition, Partial fill upon patient request Start Date: 05/23/20 Stop Date: 05/30/20 Status: Orderedpropranolol 60 mg oral capsule, extended release 120 mg, 2, capsule, By Mouth, Daily, Refills 0, Maintenance, 01/26/20 10:50:00 EDT Start Date: 01/26/20 Status: Orderedzolpidem 10 mg oral tablet 1 [...] Height 173 cm 173 cm 173 cm (05/29/20 11:31 AM) (05/29/20 8:14 AM) (05/27/20 4:4 6 PM) Weight 141 kg (05/25/20 2:21 PM) Oxygen Saturation [94-100 %] 97 % 97 % 97 % (05/29/20 11:31 AM) (05/29/20 8:14 AM) (05/29/20 4: 00 AM) Pulse Rate [55-90 bpm] 74 bpm 76 bpm 76 bpm (05/29/20 11:31 AM) (05/29/20 8:23 AM) (05/29/20 8: 14 AM) Body Mass Index [18.5-24.99] 47.11 *>HHI* (05/25/20 2:21 PM) Blood Pressure [90-138/55-84 130/62 mm Hg 141/62 mm Hg 141 /62 mm Hg mm Hg] (05/29/20 11:31 AM) *H* *H* (05/29/20 8:23 AM) (05/29/20 8:14 AM) Respiratory Rate [16-30 18 br/min 18 br/min 18 br/mi n br/min] (05/29/20 1:36 PM) (05/29/20 12:35 PM) (05/29/20 11 :31 AM) Temperature [96.8-100.4 98.7 DegF 98.7 DegF 98.4 Deg F DegF] (05/29/20 11:31 AM) (05/29/20 8:14 AM) (05/29/20 4: 00 AM) Mode of Delivery (Oxygen) Room air Room air Room a ir (05/29/20 11:31 AM) (05/29/20 8:14 AM) (9/11/20 4: 00 AM) Blood pressure sites Arm, right Arm, right Arm, left (05/29/20 11:31 AM) (05/29/20 8:14 AM) (05/29/20 4: 00 AM) Temperature Route Oral Oral Oral (05/29/20 11:31 AM) (05/29/20 8:14 AM) (05/29/20 4: 00 AM) Dry Weight 141 kg (05/25/20 2:21 PM) Weight Obtained Via UTO (05/25/20 9:11 AM) Dry Weight Obtained Via UTO (05/25/20 9:11 AM) Social History Social History Type Response Smoking Status Current every day smoker entered on: 09/15/17 Sex
--- OUTSIDE RECORDS SUMMARY | 2022-06-28 07:00 | XMS_ITS | Continuity of Care Document ---
:1970 Author Organization [facility] Address [address] [place] [address]- Care Team Providers Name Role Phone Geovany AUSTIN, Maria Antonia Primary Care Physician Encounter [facility] [place] Date(s): 01/26/22 - 01/28/[address] [id number] Discharge Disposition: A-D/C AMA Attending Physician: Matt Bailey MD Admitting Physician: Mer MELCHOR, Chun Rogers [...] oral capsule 900 mg, Capsule, By Mouth, 01/28/22 9:00:00 EDT Start Date: 01/28/22 Stop Date: 01/28/22 Status: Completedgabapentin 300 mg oral capsule 600 [...] Refills, Maintenance, 11/03/21 12:11:00 EST, EC Tablet, [facility], Partial fill upon patient [...] opioid drug. Start Date: 12/27/21 Status: OrderedOxyCONTIN 10 mg oral tablet, extended release 30 mg, ER Tablet, By Mouth, 01/28/22 9:00:00 EDT Start Date: 01/28/22 Stop Date: 01/28/22 Status: CompletedOxyCONTIN 30 mg oral tablet, extended release 1 tablet = 30 mg, By Mouth, Every 12 hours, # 6 tablet, 0 Refills, Maintenance, 12/03/21 15:53:00 EDT, ER Tablet, [facility], Partial fill upon patient [...] release 120 mg, CR Capsule, By Mouth, 01/28/22 9:00:00 EDT Start Date: 01/28/22 Stop Date: 01/28/22 Status: Completedrosuvastatin 40 mg oral tablet 1 [...] Condition Effective Dates Status Health Status Informant Anxiety disorder(Confirmed) Active Weakness(Confirmed) Active Bipolar illness(Confirmed) Active Cellulitis(Confirmed) Active Chronic back pain(Confirmed) Active CKD (chronic kidney Active disease)(Confirmed) Depressive disorder(Confirmed) Active FSGS (focal segmental Active glomerulosclerosis)(Confirmed) Hypertension(Confirmed) Active Insomnia(Confirmed) Active 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) Morbid obesity(Confirmed) Active Overactive bladder(Confirmed) Active Severe obesity(Confirmed) Active Tobacco dependence syndrome(Confirmed) Active Urinary incontinence(Confirmed) Active Results Orders for Microbiology Reports Name Date Blood Culture 01/25/22 Blood Culture #2 01/25/22 Microbiology Reports TEST:Blood Culture STATUS:Unauthenticated BODY SITE: SOURCE:Blood COLLECTED DATE/TIME:01/25/22 4:42 PMBlood Culture SPECIMEN DESCRIPTION : BLOOD NO SITE SPECIAL REQUESTS : NONE CULTURE : NO GROWTH 3 DAYS REPORT STATUS : PRELIMINARY REPORT TEST:Blood Culture, Second Order STATUS:Unauthenticated BODY SITE: SOURCE:Blood COLLECTED DATE/TIME:01/25/22 4:24 PMBlood Culture, Second Order SPECIMEN DESCRIPTION : BLOOD NO SITE SPECIAL REQUESTS : NONE CULTURE : NO GROWTH 3 DAYS REPORT STATUS : PRELIMINARY REPORT Radiology Reports Exam Date Time Procedure Performing Provider Status 01/25/22 8:43 PM Chest Single Frontal View Elkin Cabezas; Rhonda (Verified) Notes:(Chest Single Frontal View) Reason For Exam: Shortness of BreathRESULT: Chest Single Frontal View Chest Single Frontal View Hx of Present Illness: pain all over; Reason: Shortness of Breath; Clinical Question(s): CHF COMPARISON: 01/11/2022 FINDINGS: LINES AND TUBES: None. LUNGS AND PLEURA: The study is underpenetrated due to body habitus. There is improved aeration of the left lung . Clear lungs. Normal pulmonary vascularity. No pleural effusion. No pneumothorax. HEART, MEDIASTINUM AND BRIGHT: Heart is at the upper limits of normal for size. Normal upper mediastinal and hilar contour. BONES AND SOFT TISSUES: No acute abnormality. IMPRESSION: Study limited by body habitus. No acute abnormality. WSN: [id number] Ordering Physician: Mary Hdz Dictated By: Harsha Toney MD Dictated Date/Time: 01/25/22 8:46 pm Reviewed By: Harsha Toney MD Signed By: Harsha Toney MD Signed Date/Time: 01/25/22 8:46 pm Transcribed By: LESLEE Transcribed Date/Time: 01/25/22 8:45 pm Vital Signs Most recent to oldest 1 2 3 [Reference Range]: Height 172 cm 172 cm 172 cm (01/28/22 4:43 AM) (01/27/22 8:33 PM) (01/26/22 2:3 0 PM) Weight 130 kg (01/26/22 2:30 PM) Oxygen Saturation [94-100 %] 96 % 99 % 96 % (01/28/22 4:43 AM) (01/27/22 8:33 PM) (01/27/22 3:0 0 PM) Pulse Rate [55-90 bpm] 83 bpm 76 bpm 77 bpm (01/28/22 11:09 AM) (01/28/22 4:43 AM) (01/27/22 8: 33 PM) Body Mass Index [18.5-24.99] 43.94 *>HHI* (01/26/22 2:30 PM) Blood Pressure [90-138/55-84 145/68 mm Hg 138/65 mm Hg 118 /56 mm Hg mm Hg] *H* (01/28/22 4:43 AM) (01/27/22 8:33 PM) (01/28/22 11:09 AM) Respiratory Rate [16-30 16 br/min 16 br/min 16 br/mi n br/min] (01/28/22 12:09 PM) (01/28/22 11:09 AM) (01/28/22 1 0:37 AM) Temperature [96.8-100.4 97.6 DegF 98.3 DegF 97.8 Deg F DegF] (01/28/22 4:43 AM) (01/27/22 8:33 PM) (01/27/22 3:0 0 PM) Mode of Delivery (Oxygen) Room air Room air Room a ir (01/28/22 4:43 AM) (01/27/22 8:33 PM) (01/27/22 3:0 0 PM) Blood pressure sites Arm, left Arm, left Arm, right (01/28/22 4:43 AM) (01/27/22 8:33 PM) (01/27/22 3:0 0 PM) Temperature Route Oral Oral Oral (01/28/22 4:43 AM) (01/27/22 8:33 PM) (01/27/22 3:0 0 PM) Dry Weight 130 kg (01/26/22 2:30 PM) Social History Social History Type Response Smoking Status Current every day smoker entered on: 09/15/17 Sex
--- OUTSIDE RECORDS SUMMARY | 2022-06-28 07:00 | XMS_ITS | Continuity of Care Document ---
:1970 Author Organization [facility] Address [address] [place] [address]- Care Team Providers Name Role Phone Jonoanupama Sobia HEREDIA Primary Care Physician Encounter [facility] [place] Date(s): 05/31/22 - 06/02/[address] [address]- Encounter Diagnosis Syncope (Final) - 06/01/22 Discharge Disposition: A-D/C Home Attending Physician: Tia Etienne MD Admitting Physician: Maria Isabel Maynard MD Referring Physician: Not on Staff, Referring MD Allergies, Adverse Reactions, Alerts Substance Reaction Severity Status acetaminophen extremely itchy Active shellfish1 Active Tylenol Active Fish2 Active MetFORMIN (Eqv-Glumetza) Active 1patient reports itchy/tingling [id number] reports itchy/tingling throat Immunizations Given and Recorded [...] hours, PRN as needed for wheezing, Maintenance, 07/26/22 13:09:00 EDT, Solution, ; Start Date: 04/12/22 Status: OrderedamLODIPine 5 mg oral tablet 5 mg, Tablet, By Mouth, Hold for: sbp<110, 06/02/22 9:00:00 EDT Start Date: 06/02/22 Stop Date: 06/02/22 Status: CompletedamLODIPine 5 mg oral tablet 5 [...] EDT, ; Start Date: 04/12/22 Status: OrderedDilaudid Inj 1 mg, Injection, IV Push Slowly, Every 4 hours for 2 days, PRN for Pain , Severe, Routine, 06/01/22 0:31:00 EDT, Stop date 06/03/22 0:30:00 EDT Start Date: 06/01/22 Stop Date: 06/02/22 Status: DiscontinuedDocusate/Senna Tablet 1 tablet, By Mouth, 2 times [...] 04/12/22 Status: Orderedgabapentin 300 mg oral capsule 900 mg, Capsule, By Mouth, in am and at bedtime, 06/02/22 9:00:00 EDT Start Date: 06/02/22 Stop Date: 06/02/22 Status: Completedgabapentin 300 mg oral capsule 3 capsules, By [...] EDT, ; Start Date: 02/08/22 Status: OrderedNystop 868227 u/gm powder 1 application, Topically, 2 times [...] II opioid drug. Start Date: 05/29/22 Status: OrderedOxyCONTIN 30 mg oral tablet, extended release 1 tablet = 30 mg, By Mouth, Every 12 hours, # 14 tablet, 0 Refills, Maintenance, 02/12/22 10:37:00 EDT, ER Tablet, [facility], Partial fill upon patient [...] release 120 mg, CR Capsule, By Mouth, 06/02/22 9:00:00 EDT Start Date: 06/02/22 Stop Date: 06/02/22 Status: Completedrosuvastatin 40 mg oral tablet 1 [...] oldest 1 2 3 [Reference Range]: Weight 121.7 kg (06/01/22 8:28 PM) Oxygen Saturation [94-100 %] 98 % 100 % 98 % (06/02/22 8:26 AM) (06/02/22 3:48 AM) (06/01/22 11: 00 PM) Pulse Rate [55-90 bpm] 88 bpm 85 bpm 79 bpm (06/02/22 12:53 PM) (06/02/22 8:26 AM) (06/02/22 3: 48 AM) Blood Pressure [90-138/55-84 121/95 mm Hg 163/90 mm Hg 163 /90 mm Hg mm Hg] (06/02/22 12:53 PM) *H* *H* (06/02/22 9:43 AM) (06/02/22 8:26 AM) Respiratory Rate [16-30 18 br/min 20 br/min 18 br/mi n br/min] (06/02/22 9:43 AM) (06/02/22 8:26 AM) (06/02/22 8:0 4 AM) Temperature [96.8-100.4 100.5 DegF 98.2 DegF 98.5 Deg F DegF] *H* (06/02/22 3:48 AM) (06/01/22 11:00 PM) (06/02/22 8:26 AM) Mode of Delivery (Oxygen) Room air Room air Room a ir (06/02/22 8:26 AM) (06/02/22 3:48 AM) (06/01/22 11: 00 PM) Blood pressure sites Arm, right Arm, right Arm, right (06/02/22 3:48 AM) (06/01/22 11:00 PM) (06/01/22 8: 39 PM) Temperature Route Oral Oral Oral (06/02/22 8:26 AM) (06/02/22 3:48 AM) (06/01/22 11: 00 PM) Weight Obtained Via Bed scale (06/01/22 8:28 PM) Social History Social History Type Response Smoking Status Never (less than 100 in life time) entered on: 05/13/22 Sex Care Team PersonnelName: Sobia Khalil DO Address: [address] [place] [address] [address] [place] [address]
--- OUTSIDE RECORDS SUMMARY | 2022-06-28 07:00 | XMS_ITS | Continuity of Care Document ---
:1970 Author Organization [facility] Address [address] [place] [id number]- Care Team Providers Name Role Phone Simran Sobia HEREDIA Primary Care Physician [place] [facility] [place]/04/21 - 07/27/[address] [id number] Encounter Diagnosis Chest pain (Final) - 07/04/21 Cellulitis (Final) - 07/06/21 Discharge Disposition: A-Transfer VNA/Home Health Attending Physician: Yuliet Stephenson MD Admitting Physician: Peggy Macias MD Referring Physician: Not on Staff, Referring MD Allergies, Adverse Reactions, Alerts Substance Reaction Severity Status acetaminophen extremely itchy Active MetFORMIN (Eqv-Glumetza) Active Immunizations Given and Recorded Vaccine Date Status Refusal Reason influenza virus vaccine, inactivated 07/07/21 Given influenza [...] EDT, ER Tablet Start Date: 07/06/21 Status: Orderedchlorthalidone 25 mg oral tablet 25 mg, 1, tablet, By Mouth, Daily, Maintenance, 07/06/21 16:34:00 EDT Start Date: 07/06/21 Status: OrderedDilaudid Inj 2 mg, Injection, IV Push Slowly, Every 4 hours, PRN for Pain , Severe, Routine, 07/23/21 11:50:00 EDT Start Date: 07/23/21 Stop Date: 07/30/21 Status: Orderedfinasteride 5 mg oral tablet 1 [...] 07/06/21 Status: Orderedgabapentin 300 mg oral capsule 300 mg, Capsule, By Mouth, 07/27/21 15:00:00 EST Start Date: 07/27/21 Stop Date: 07/27/21 Status: Completedgabapentin 300 mg oral capsule 900 [...] EDT, Powder Start Date: 07/06/21 Status: OrderedoxyCODONE 5 mg oral tablet 10 mg, 2, tablet, By Mouth, Daily, PRN, Refills 0, Tot. Refills 0, Maintenance, as needed for pain, 07/06/21 16:35:00 EDT Start Date: 07/06/21 Status: OrderedOxyCONTIN 20 mg oral tablet, extended release 20 mg, 1, tablet, By Mouth, Every 12 hours, # 6 tablet, Refills 0, Tot. Refills 0, Maintenance, 04/02/21 13:04:00 EDT, Print Requisition, Partial fill upon patient request if the prescription is for a schedule II opioid drug. Start Date: 04/02/21 Stop Date: 04/05/21 Status: OrderedpredniSONE 20 mg oral tablet See Instructions, Please take 80mg daily for two days. Then take 60mg daily for three days. Then take 40mg daily for three days. Then take 20mg daily for three days. Then take 10mg daily for final three days., # 28 tablet, 0 Refills, Acute 08/11/21 8:... Start Date: 07/27/21 Stop Date: 08/11/21 Status: Orderedpropranolol 120 mg oral capsule, extended [...] 0 Refills, Maintenance, 07/27/21 14:56:00 EST, Solution, [facility], Partial fill upon patient request [...] Dates Status Health Status Informant Cellulitis(Confirmed) Active Depressive disorder(Confirmed) Active Tobacco dependence syndrome(Confirmed) Active Urinary incontinence(Confirmed) Active Results Orders for Microbiology Reports Name Date Urine Culture (URINE CULTURE) 07/15/21 Blood Culture 07/14/21 Anaerobic Culture 07/05/21 Wound Deep Culture w/ Gram Smear (Deep Wound Culture w / Gram Smear) 07/05/21 Blood Culture 07/04/21 Blood Culture #2 07/04/21 Microbiology Reports TEST:Urine Culture STATUS:Auth (Verified) BODY SITE: SOURCE:URINE COLLECTED DATE/TIME:07/15/21 8:54 AMUrine Culture SPECIMEN DESCRIPTION : URINE SPECIAL REQUESTS : NONE CULTURE : NO GROWTH REPORT STATUS : FINAL 07/17/2021TEST:Blood Culture STATUS:Auth (Verified) BODY SITE: SOURCE:Blood COLLECTED DATE/TIME:07/14/21 12:48 PMBlood Culture SPECIMEN DESCRIPTION : BLOOD LIA SITE SPECIAL REQUESTS : NONE CULTURE : NO GROWTH 5 DAYS. REPORT STATUS : FINAL 07/19/2021TEST:Anaerobic Culture STATUS:Auth (Verified) BODY SITE: SOURCE:E SWAB COLLECTED DATE/TIME:07/05/21 10:42 PMAnaerobic Culture SPECIMEN DESCRIPTION : E SWAB BREAST LT ABSCESS SPECIAL REQUESTS : NONE CULTURE : NO ANAEROBES ISOLATED REPORT STATUS : FINAL 07/11/2021TEST:Deep Wound Culture STATUS:Auth (Verified) BODY SITE: SOURCE:E SWAB COLLECTED DATE/TIME:07/05/21 10:42 PMDeep Wound Culture SPECIMEN DESCRIPTION : E SWAB BREAST LT ABSCESS SPECIAL REQUESTS : NONE GRAM STAIN : 3+ POLYMORPHONUCLEAR LEUKOCYTES NO ORGANISMS SEEN CULTURE : NO GROWTH 2 DAYS REPORT STATUS : FINAL 07/08/2021TEST:Blood Culture STATUS:Auth (Verified) BODY SITE: SOURCE:Blood COLLECTED DATE/TIME:07/04/21 4:37 PMBlood Culture SPECIMEN DESCRIPTION : BLOOD RT SPECIAL REQUESTS : NONE CULTURE : NO GROWTH 5 DAYS. REPORT STATUS : FINAL 07/09/2021TEST:Blood Culture, Second Order STATUS:Auth (Verified) BODY SITE: SOURCE:Blood COLLECTED DATE/TIME:07/04/21 4:37 PMBlood Culture, Second Order SPECIMEN DESCRIPTION : BLOOD L ARM SPECIAL REQUESTS : NONE CULTURE : NO GROWTH 5 DAYS. REPORT STATUS : FINAL 07/09/2021adiology Reports Exam Date Time Procedure Performing Provider Status 07/26/21 6:07 PM XR Lumbar Puncture Diagnostic Idris Martinez [facility] (Verified) Notes:(XR Lumbar Puncture Diagnostic) Reason For Exam: Spinal Fluid;Spinal Fluid RESULT: XR Lumbar Puncture Diagnostic Fluoroscopic guided lumbar puncture HISTORY: The patient presents with leg weakness, back pain and abnormal nerve root enhancement by MRI. Attempts at performing lumbar puncture without imaging guidance have failed. Anesthesia was required for the procedure. PROCEDURE: Under anesthesia the patient was rolled into a left lateral decubitus position on the fluoroscopy table. Attempts were made to localize the spinous processes and midline utilizing cross table AP views with both a portable machine and the overhead tube adequate penetration was unable to be obtained. Several attempts were then made with an approximate sense of midline at the L2-3 level. Lateral fluoroscopy demonstrated that adequate depth was achieved with a 20-gauge 4 inch needle but no CSF was able to be obtained. After numerous attempts the procedure was discontinued. The procedures well tolerated. 0.2 minutes of fluoroscopy time (DAP 218.2, was utilized. In addition for crosstable AP exposures were performed. IMPRESSION: Unsuccessful attempt at image guided lumbar puncture due to inability to visualize the spinous processes with crosstable imaging. WSN: [id number] Ordering Physician: Gabriella Monaoc Dictated By: Davie Cruz MD Dictated Date/Time: 07/27/21 8:36 am Reviewed By: Davie Cruz MD Signed By: Davie Cruz MD Signed Date/Time: 07/27/21 8:36 am Transcribed By: LESLEE Transcribed Date/Time: 07/27/21 8:27 am Exam Date Time Procedure Performing Provider Status 07/19/21 10:27 AM Chest Portable Ga Summers (Verifi ed) Notes:(Chest Portable) Reason For Exam: CHFRESULT: Chest Portable Chest Portable INDICATION: Shortness of breath. COMPARISON: Multiple prior radiographs, most recent 07/15/2021. FINDINGS: LUNGS AND PLEURA: No significant interval change in diffuse interstitial markings and left-sided pleural effusion. No pneumothorax. HEART, MEDIASTINUM AND BRIGHT: Unchanged. BONES AND SOFT TISSUES: Unchanged. IMPRESSION: Persistent diffuse interstitial markings and left-sided pleural effusion with no significant interval change. I have personally reviewed the images and I agree with this report. WSN: [id number] Ordering Physician: Nikko Syed Dictated By: Marco Sanders MD Dictated Date/Time: 07/19/21 1:42 pm Reviewed By: Savanna Carlisle MD Signed By: Savanna Carlisle MD Signed Date/Time: 07/19/21 1:47 pm Transcribed By: LESLEE Transcribed Date/Time: 07/19/21 10:30 am Exam Date Time Procedure Performing Provider Status 07/15/21 11:20 AM Chest Portable Joslyn Delcid; Rhonda (Verifie d) Notes:(Chest Portable) Reason For Exam: Hypoxia;Shortness of BreathRESULT: Chest Portable Chest Portable Reason: Shortness of Breath; Hypoxia; COMPARISON: 06/02/2021. FINDINGS: LINES AND TUBES: None. LUNGS AND PLEURA: There is diffuse increased interstitial markings, small left-sided pleural effusion and basilar opacity and cephalization of pulmonary vasculature. No sizable right effusion. No pneumothorax. HEART, MEDIASTINUM AND BRIGHT: Heart appears mildly enlarged. Prominent central pulmonary vascularity. BONES AND SOFT TISSUES: No acute abnormality. IMPRESSION: Findings most consistent with mild pulmonary edema, left pleural effusion and basilar atelectasis. Left lower lobe infiltrate and pneumonia is not excluded. Clinical correlation recommended. WSN: [id number] Ordering Physician: Nikko Syed Dictated By: Nicholas Duran MD Dictated Date/Time: 07/15/21 11:26 a Reviewed By: Nicholas Duran MD Signed By: Nicholas Duran MD Signed Date/Time: 07/15/21 11:26 am Transcribed By: LESLEE Transcribed Date/Time: 07/15/21 11:22 am Vital Signs Most recent to oldest 1 2 3 [Reference Range]: Height 172 cm 172 cm 172 cm (07/27/21 11:14 AM) (07/27/21 9:43 AM) (07/27/21 7: 38 AM) Weight 144.3 kg (07/06/21 1:31 AM) Oxygen Saturation [94-100 %] 100 % 99 % 95 % (07/27/21 11:14 AM) (07/27/21 9:43 AM) (07/27/21 7: 38 AM) Pulse Rate [55-90 bpm] 73 bpm 75 bpm 59 bpm (07/27/21 11:14 AM) (07/27/21 9:43 AM) (07/27/21 7: 38 AM) Body Mass Index [18.5-24.99] 48.78 *>HHI* (07/06/21 1:31 AM) Blood Pressure [90-138/55-84 144/84 mm Hg 157/79 mm Hg 142 /72 mm Hg mm Hg] *H* *H* *H* (07/27/21 11:14 AM) (07/27/21 9:43 AM) (07/27/21 7: 38 AM) Respiratory Rate [16-30 20 br/min 20 br/min 20 br/mi n br/min] (07/27/21 3:09 PM) (07/27/21 1:21 PM) (07/27/21 11: 14 AM) Temperature [96.8-100.4 98.3 DegF 98.2 DegF 98.2 Deg F DegF] (07/27/21 11:14 AM) (07/27/21 9:43 AM) (07/27/21 7: 38 AM) Liters per Minute 4 L/min 9 L/min 9 L/min (07/22/21 11:30 AM) (07/15/21 8:25 PM) (07/15/21 2:00 PM) Mode of Delivery (Oxygen) Room air Room air Room a ir (07/27/21 11:14 AM) (07/27/21 9:43 AM) (07/27/21 7: 38 AM) Blood pressure sites Arm, right Arm, left Arm, right (07/27/21 11:14 AM) (07/27/21 9:43 AM) (07/27/21 7: 38 AM) Temperature Route Oral Oral Oral (07/27/21 11:14 AM) (07/27/21 9:43 AM) (07/27/21 7: 38 AM) Dry Weight 144.3 kg (07/06/21 1:31 AM) Social History Social History Type Response Smoking Status Current every day smoker entered on: 09/15/17 Sex Female
--- OUTSIDE RECORDS SUMMARY | 2022-06-28 07:00 | XMS_ITS | Continuity of Care Document ---
:1970 Author Organization [facility] Address [address] [place] [id number]- Care Team Providers Name Role Phone Geovany AUSTIN, Maria Antonia Primary Care Physician Encounter [facility] [place] Date(s): 12/12/21 - 12/13/[address] [address]- Encounter Diagnosis Back pain (Final) - 12/12/21 Discharge Disposition: A-D/C Home Attending Physician: Jared Matos Sr, MD Admitting Physician: Sam MELCHOR, Corky Hernandez Referring Physician: Not on Staff, Referring MD [...] 06/08/21 13:28:00 EDT Start Date: 06/08/21 Status: Orderedgabapentin 300 mg oral capsule 600 mg, Capsule, By Mouth, 12/13/21 11:00:00 EDT Start Date: 12/13/21 Stop Date: 12/13/21 Status: Completedinsulin lispro 100 u/ml subcutaneous injection 4-12 units, [...] Refills, Maintenance, 11/03/21 12:11:00 EST, EC Tablet, [facility], Partial fill upon patient [...] II opioid drug. Start Date: 09/29/21 Status: OrderedOxyCONTIN 30 mg oral tablet, extended release 1 tablet = 30 mg, By Mouth, Every 12 hours, # 6 tablet, 0 Refills, Maintenance, 12/03/21 15:53:00 EDT, ER Tablet, [facility], Partial fill upon patient [...] 0 Refills, Maintenance, 12/03/21 11:50:00 EDT, Solution, [facility], Partial fill upon patient [...] oldest 1 2 3 [Reference Range]: Weight 131 kg (12/12/21 9:25 PM) Oxygen Saturation [94-100 %] 95 % 94 % 92 % (12/13/21 3:01 PM) (12/13/21 8:13 AM) *L* (12/12/21 9:26 PM ) Pulse Rate [55-90 bpm] 102 bpm 86 bpm 86 bpm *H* (12/13/21 9:26 AM) (12/13/21 8:13 AM) (12/13/21 3:01 PM) Blood Pressure [90-138/55-84 116/71 mm Hg 156/71 mm Hg 156 /71 mm Hg mm Hg] (12/13/21 3:01 PM) *H* *H* (12/13/21 9:26 AM) (12/13/21 8:13 AM) Respiratory Rate [16-30 18 br/min 18 br/min 18 br/mi n br/min] (12/13/21 3:01 PM) (12/13/21 12:33 PM) (12/13/21 12 :08 PM) Temperature [96.8-100.4 DegF] 98.7 DegF 98.3 DegF 98 .5 DegF (12/13/21 3:01 PM) (12/13/21 8:13 AM) (12/12/21 9:2 6 PM) Liters per Minute 2 L/min (12/13/21 3:01 PM) Mode of Delivery (Oxygen) Nasal cannula Room air Room a ir (12/13/21 3:01 PM) (12/13/21 8:13 AM) (12/12/21 9:2 6 PM) Blood pressure sites Arm, right Arm, left Arm, left (12/13/21 3:01 PM) (12/13/21 8:13 AM) (12/12/21 9:2 6 PM) Temperature Route Oral Oral Oral (12/13/21 3:01 PM) (12/13/21 8:13 AM) (12/12/21 9:2 6 PM) Social History Social History Type Response Smoking Status Current every day smoker entered on: 09/15/17 Sex
--- OUTSIDE RECORDS SUMMARY | 2022-06-28 07:00 | XMS_ITS | Continuity of Care Document ---
:1970 Author Organization [facility] Address [address] [place] [address]- Care Team Providers Name Role Phone Sobia Khalil DO Primary Care Physician Encounter [facility] [place] Date(s): 03/29/21 - 04/02/[address] [address] Discharge Disposition: A-Transfer SNF Attending Physician: Griffin Hunt DO Admitting Physician: Jayson Jefferson MD Referring Physician: Not on Staff, Referring [...] oral tablet 10 mg, Tablet, By Mouth, 04/02/21 9:00:00 EDT Start Date: 04/02/21 Stop Date: 04/02/21 Status: CompletedAspirin Low Dose 81 mg oral [...] opioid drug. Start Date: 11/11/20 Status: OrderedDilaudid 4 mg oral tablet 1 tablet = 4 mg, By Mouth, Every 6 hours, PRN Pain , Moderate, for 3 days, # 12 tablet, 0 Refills, Acute 04/05/21 13:03:00 EDT, 04/02/21 13:03:00 EDT, Tablet, Partial fill upon patient request if the prescription is for a schedule II opioid drug. Start Date: 04/02/21 Stop Date: 04/05/21 Status: Orderedfinasteride 5 mg oral tablet 1 tablet = 5 mg, By Mouth, Daily, 0 Refills, Maintenance, 01/26/20 10:51:00 EDT, Tablet Start Date: 01/26/20 Status: Orderedgabapentin 300 mg oral capsule 900 mg, 3, capsule, By Mouth, 3 times a day, # 90 capsule, Refills 0, Maintenance, 01/27/20 12:16:00EDT Start Date: 01/27/20 Status: Orderedgabapentin 300 mg oral capsule 900 mg, Capsule, By Mouth, 04/02/21 15:00:00 EDT Start Date: 04/02/21 Stop Date: 04/02/21 Status: CompletedInsulin Lispro 3-15 units, Subcutaneous Injection, [...] opioid drug. Start Date: 11/11/20 Status: OrderedLORazepam 2 mg oral tablet 1 tablet = 2 mg, By Mouth, 3 times a day, for 3 days, # 9 tablet, 0 Refills, Acute 04/05/21 13:04:00EDT, 04/02/21 13:04:00 EDT, Tablet, Partial fill upon patient request if the prescription is for a schedule II opioid drug. Start Date: 04/02/21 Stop Date: 04/05/21 Status: OrderedNicotine = 21 mg, Topically, Daily, 0 Refills, Maintenance, 04/02/21 12:07:00 EDT, Patch, Partial fill upon patient request if the prescription is for a schedule II opioid drug. Start Date: 04/02/21 Status: Orderednystatin topical 456158 u/gm cream 1 application, Topically, 2 times [...] 1 tablet = 10 mg, By Mouth, Every 6 hours, PRN Pain , Moderate, for 3 days, # 12 tablet, 0 Refills, Acute 04/05/21 13:05:00 EDT, 04/02/21 13:05:00 EDT, Tablet, Partial fill upon patient request if the prescription is for a schedule II opioid drug. Start Date: 04/02/21 Stop Date: 04/05/21 Status: OrderedOxyCONTIN 20 mg oral tablet, extended release 20 mg, 1, tablet, By Mouth, Every 12 hours, # 6 tablet, Refills 0, Tot. Refills 0, Maintenance, 04/02/21 13:04:00 EDT, Print Requisition, Partial fill upon patient request if the prescription is for a schedule II opioid drug. Start Date: 04/02/21 Stop Date: 04/05/21 Status: OrderedOxyCONTIN 20 mg oral tablet, extended release 20 mg, ER Tablet, By Mouth, 04/02/21 11:00:00 EDT Start Date: 04/02/21 Stop Date: 04/02/21 Status: Completedpropranolol 60 mg oral capsule, extended release 120 mg, 2, capsule, By Mouth, Daily, Refills 0, Maintenance, 01/26/20 10:50:00 EDT Start Date: 01/26/20 Status: Orderedpropranolol 60 mg oral capsule, extended release 120 mg, CR Capsule, By Mouth, 04/02/21 9:00:00 EDT Start Date: 04/02/21 Stop Date: 04/02/21 Status: Completedrosuvastatin 40 mg oral tablet 1 tablet = 40 mg, By Mouth, Daily, # 30 tablet, 0 Refills, Maintenance, 06/19/20 21:23:00 EDT, Tablet Start Date: 06/19/20 Status: OrderedtiZANidine 4 mg oral tablet 4 mg, 1, tablet, By Mouth, 3 times a day, Refills 0, Maintenance, 04/02/21 12:07:00 EDT, Partial fill upon patient request if the prescription is for a schedule II opioid drug. Start Date: 04/02/21 Status: OrderedTresiba FlexTouch 100 units/mL subcutaneous solution [...] for Microbiology Reports Name Date Blood Culture 03/31/21 Blood Culture #2 03/31/21 Microbiology Reports TEST:Blood Culture STATUS:Unauthenticated BODY SITE: SOURCE:Blood COLLECTED DATE/TIME:03/31/21 1:38 PMBlood Culture SPECIMEN DESCRIPTION : BLOOD L AC SPECIAL REQUESTS : NONE CULTURE : NO GROWTH AFTER 48 HOURS REPORT STATUS : PRELIMINARY REPORT TEST:Blood Culture, Second Order STATUS:Unauthenticated BODY SITE: SOURCE:Blood COLLECTED DATE/TIME:03/31/21 1:38 PMBlood Culture, Second Order SPECIMEN DESCRIPTION : BLOOD R AC SPECIAL REQUESTS : NONE CULTURE : NO GROWTH AFTER 48 HOURS REPORT STATUS : PRELIMINARY REPORT Vital Signs Most recent to oldest 1 2 3 [Reference Range]: Height 173 cm 173 cm 173 cm (04/02/21 7:19 AM) (04/02/21 3:08 AM) (04/01/21 4:0 4 PM) Weight 146.8 kg 136.5 kg 136.5 kg (03/30/21 5:00 AM) (03/29/21 2:48 PM) (03/29/21 11: 39 AM) Oxygen Saturation [94-100 %] 93 % 92 % 93 % *L* *L* *L* (04/02/21 7:19 AM) (04/02/21 3:08 AM) (04/01/21 7:3 0 PM) Pulse Rate [55-90 bpm] 78 bpm 78 bpm 68 bpm (04/02/21 7:22 AM) (04/02/21 7:19 AM) (04/02/21 3:0 8 AM) Body Mass Index [18.5-24.99] 45.61 45.61 *>HHI* *>HHI* (03/29/21 2:48 PM) (03/29/21 11:21 AM) Blood Pressure [90-138/55-84 113/62 mm Hg 113/62 mm Hg 113 /62 mm Hg mm Hg] (04/02/21 7:23 AM) (04/02/21 7:22 AM) (04/02/21 7:1 9 AM) Respiratory Rate [16-30 18 br/min 18 br/min 18 br/mi n br/min] (04/02/21 1:42 PM) (04/02/21 1:05 PM) (04/02/21 11: 08 AM) Temperature [96.8-100.4 97.9 DegF 97.5 DegF 98.2 Deg F DegF] (04/02/21 7:19 AM) (04/02/21 3:08 AM) (04/01/21 6:3 0 PM) Liters per Minute 2 L/min 2 L/min 2 L/min (04/01/21 7:30 PM) (04/01/21 6:30 PM) (03/31/21 7:3 2 AM) Mode of Delivery (Oxygen) Room air Room air Nasal cannula (04/02/21 7:19 AM) (04/02/21 3:08 AM) (04/01/21 7:3 0 PM) Blood pressure sites Arm, right Arm, right Arm, right (04/02/21 7:19 AM) (04/02/21 3:08 AM) (04/01/21 4:0 4 PM) Temperature Route Oral Oral Temporal (04/02/21 7:19 AM) (04/02/21 3:08 AM) (04/01/21 6:3 0 PM) Dry Weight 136.5 kg 136.5 kg 136.5 kg (03/29/21 2:48 PM) (03/29/21 11:39 AM) (03/29/21 11 :21 AM) Weight Obtained Via Bed scale Standing scale (03/30/21 5:00 AM) (03/29/21 11:21 AM) Dry Weight Obtained Via Standing scale (03/29/21 11:21 AM) Social History Social History Type Response Smoking Status Current every day smoker entered on: 09/15/17 Sex Female
--- OUTSIDE RECORDS SUMMARY | 2022-06-28 07:00 | XMS_ITS | Continuity of Care Document ---
:[address] Organization [facility] Address [address] [place] [address]- Care Team Providers Name Role Phone Julianabeatriz Sobia HEREDIA Primary Care Physician [place] [facility] [place] - 10/05/[address] [address] Encounter Diagnosis Abdominal pain (Final) - 09/29/21 Back pain (Final) - 09/29/21 Osteomyelitis (Final) - 09/29/21 Discharge Disposition: A-D/C Home Attending Physician: Rupal Dc MD Admitting Physician: Paty Byrnes MD Referring Physician: Not on Staff, Referring [...] entered Medications amLODIPine 10 mg oral tablet 10 mg, Tablet, By Mouth, 10/05/21 9:00:00 EST Start Date: 10/05/21 Stop Date: 10/05/21 Status: CompletedamLODIPine 10 mg oral tablet 1 tablet = [...] EDT, ER Tablet Start Date: 07/06/21 Status: Ordereddocusate-senna 50 mg-8.6 mg oral capsule 2 capsule, By Mouth, 2 times a day, PRN Constipation, for 14 days, # 100 capsule, 0 Refills, Acute 10/19/21 10:57:00 EST, 10/05/21 10:57:00 EST, Capsule, [facility], Partial fill upon patient request if the prescription is for a schedule I... Start Date: 10/05/21 Stop Date: 10/19/21 Status: Orderedfinasteride 5 mg oral tablet 1 tablet = 5 mg, By Mouth, Daily, 0 Refills, Maintenance, 01/26/20 10:51:00 EDT, Tablet Start Date: 01/26/20 Status: Orderedgabapentin 300 mg oral capsule 600 mg, Capsule, By Mouth, 10/05/21 9:00:00 EST Start Date: 10/05/21 Stop Date: 10/05/21 Status: Completedgabapentin 300 mg oral capsule 600 [...] opioid drug. Start Date: 09/29/21 Status: OrderedoxyCODONE 10 mg oral tablet, extended release 30 mg, ER Tablet, By Mouth, Hold for: Sedation, RR<8, 10/05/21 10:00:00 EST Start Date: 10/05/21 Stop Date: 10/05/21 Status: CompletedoxyCODONE 20 mg oral tablet 1 tablet = 20 mg, By Mouth, Every 4 hours, PRN as needed for pain, for 5 days, # 24 tablet, 0 Refills, Acute 10/10/21 9:51:00 EST, 10/05/21 9:51:00 EST, Tablet, Partial fill upon patient request if theprescription is for a schedule II opioid drug. Start Date: 10/05/21 Stop Date: 10/10/21 Status: Orderedoxycodone 30 mg oral tablet, extended release 1 tablet = 30 mg, By Mouth, Every 12 hours, # 10 tablet, 0 Refills, Maintenance, 10/05/21 9:52:00 EST, ER Tablet, Partial fill upon patient request if the prescription is for a schedule II opioid drug. Start Date: 10/05/21 Stop Date: 10/10/21 Status: OrderedoxyCODONE 5 mg oral tablet 20 mg, Tablet, By Mouth, Every 4 hours, PRN for Pain , Moderate, Routine, 10/01/21 13:38:00 EST Start Date: 10/01/21 Stop Date: 10/05/21 Status: Discontinuedpropranolol 120 mg oral capsule, extended release 1 capsule = 120 mg, By Mouth, Daily, Maintenance, 07/06/21 16:35:00 EDT, CR Capsule Start Date: 07/06/21 Status: Orderedpropranolol 60 mg oral capsule, extended release 120 mg, CR Capsule, By Mouth, 10/05/21 9:00:00 EST Start Date: 10/05/21 Stop Date: 10/05/21 Status: Completedrosuvastatin 40 mg oral tablet 1 [...] 0 Refills, Maintenance, 07/27/21 14:56:00 EST, Solution, [facility], Partial fill upon patient [...] for Microbiology Reports Name Date Blood Culture 09/29/21 Blood Culture #2 09/29/21 Microbiology Reports TEST:Blood Culture STATUS:Auth (Verified) BODY SITE: SOURCE:Blood COLLECTED DATE/TIME:09/29/21 6:35 AMBlood Culture SPECIMEN DESCRIPTION : BLOOD LAC SPECIAL REQUESTS : NONE CULTURE : NO GROWTH 5 DAYS. REPORT STATUS : FINAL 10/04/2021TEST:Blood Culture, Second Order STATUS:Auth (Verified) BODY SITE: SOURCE:Blood COLLECTED DATE/TIME:09/29/21 6:35 AMBlood Culture, Second Order SPECIMEN DESCRIPTION : BLOOD NOSITE SPECIAL REQUESTS : NONE CULTURE : NO GROWTH 5 DAYS. REPORT STATUS : FINAL 01/17/2022Radiology Reports Exam Date Time Procedure Performing Provider Status 09/29/21 5:59 AM Chest 2 Views Frontal and Lat David Buchanan odified Notes:(Chest 2 Views Frontal and Lat) Reason For Exam: Shortness of Breath, Fever;Other:ADDENDUM: Chest 2 Views Frontal and Lat Right PICC present, projecting over the upper SVC. I have personally reviewed the images and I agree with this report. WSN: [id number] Ordering Physician: Isabelle Street Dictated By: Anu Olivo DO Dictated Date/Time: 09/29/21 10:40 a Reviewed By: Tom Carrera MD Signed By: Tom Carrera MD Signed Date/Time: 09/29/21 10:45 am Transcribed By: LESLEE Transcribed Date/Time: 09/29/21 10:35 amRESULT: Chest 2 Views Frontal and Lat Chest 2 Views Frontal and Lat Reason: Shortness of Breath, Fever; Clinical Question(s): Pneumonia COMPARISON: Multiple priors most recently 07/19/2021 FINDINGS: LINES AND TUBES: None. LUNGS AND PLEURA: Unchanged mild increased interstitial markings. No definitive left pleural effusion. No right pleural effusion. No pneumothorax. HEART, MEDIASTINUM AND BRIGHT: Unchanged. Prominent epicardial fat pad. BONES AND SOFT TISSUES: No acute abnormality. IMPRESSION: No acute abnormality. No definitive effusion. I have personally reviewed the images and I agree with this report. WSN: [id number] Ordering Physician: Isabelle Street Dictated By: Anu Olivo DO Dictated Date/Time: 09/29/21 9:10 am Reviewed By: Tom Carrera MD Signed By: Tom Carrera MD Signed Date/Time: 09/29/21 9:15 am Transcribed By: LESLEE Transcribed Date/Time: 09/29/21 8:35 am Vital Signs Most recent to oldest 1 2 3 [Reference Range]: Height 172 cm 172 cm 172 cm (10/05/21 8:57 AM) (10/04/21 7:48 PM) (10/04/21 8:0 8 AM) Weight 136.6 kg 136.8 kg (09/29/21 10:31 AM) (09/29/21 10:29 AM) Oxygen Saturation [94-100 %] 96 % 95 % 95 % (10/05/21 8:57 AM) (10/04/21 7:48 PM) (10/04/21 8:0 8 AM) Pulse Rate [55-90 bpm] 71 bpm 70 bpm 68 bpm (10/05/21 8:57 AM) (10/05/21 8:49 AM) (10/04/21 7:4 8 PM) Body Mass Index [18.5-24.99] 46.17 46.24 *>HHI* *>HHI* (09/29/21 10:31 AM) (09/29/21 10:29 AM) Blood Pressure [90-138/55-84 119/61 mm Hg 116/62 mm Hg 119 /61 mm Hg mm Hg] (10/05/21 8:57 AM) (10/05/21 8:49 AM) (10/05/21 8:4 9 AM) Respiratory Rate [16-30 18 br/min 20 br/min 18 br/mi n br/min] (10/05/21 1:02 PM) (10/05/21 10:43 AM) (10/05/21 10 :14 AM) Temperature [96.8-100.4 97.7 DegF 97.8 DegF 98.2 Deg F DegF] (10/05/21 8:57 AM) (10/04/21 7:48 PM) (10/04/21 8:0 8 AM) Liters per Minute 3 L/min 3 L/min (09/29/21 5:45 PM) (09/29/21 5:30 PM) Mode of Delivery (Oxygen) Room air Room air Room a ir (10/05/21 8:57 AM) (10/04/21 7:48 PM) (10/04/21 8:0 8 AM) Blood pressure sites Arm, right Arm, right Arm, right (10/05/21 8:57 AM) (10/04/21 7:48 PM) (10/04/21 8:0 8 AM) Temperature Route Oral Oral Oral (10/05/21 8:57 AM) (10/04/21 7:48 PM) (10/04/21 8:0 8 AM) Dry Weight 136.8 kg (09/29/21 10:31 AM) Social History Social History Type Response Smoking Status Current every day smoker entered on: 09/15/17 Sex
--- OUTSIDE RECORDS SUMMARY | 2022-06-28 07:00 | XMS_ITS | Continuity of Care Document ---
:1970 Author Organization [facility] Address [address] [place] [address]- Care Team Providers Name Role Phone Sobia Khalil DO Primary Care Physician [place] [facility] [place] 11/23/20 - 12/23/20 [facility] [address] [place] [id number] Allergies, Adverse Reactions, Alerts Substance Reaction Severity [...] drug. Start Date: 11/11/20 Status: Orderednystatin topical 500838 u/gm cream 1 application, Topically, 2 times [...]
--- OUTSIDE RECORDS SUMMARY | 2022-06-28 07:00 | XMS_ITS | Continuity of Care Document ---
:1970 Author Organization [facility] Address [address] [place] [address]- Care Team Providers Name Role Phone Jonoanupama Sobia HEREDIA Primary Care Physician En[facility] [place] Date(s): 06/02/21 - 06/08/[address] [address] Encounter Diagnosis Cellulitis (Final) - 06/02/21 Discharge Disposition: A-D/C AMA Attending Physician: Adeola Downs MD Admitting Physician: Raven Christopher DO Referring Physician: Not on Staff, Referring [...] oral tablet 10 mg, Tablet, By Mouth, Hold for: SBP < 100, 06/08/21 9:00:00 EDT Start Date: 06/08/21 Stop Date: 06/08/21 Status: CompletedAspirin Low Dose 81 mg oral delayed release tablet 1 tablet = 81 mg, By Mouth, Daily, # 30 tablet, 0 Refills, Maintenance, 06/19/20 21:23:00 EDT, EC Tablet Start Date: 06/19/20 Status: OrderedbuPROPion 150 mg/12 hours (SR) oral tablet, extended release 2 tablet = 300 mg, By Mouth, Daily, 0 Refills, Maintenance, 01/26/20 10:51:00 EDT, SR Tablet Start Date: 01/26/20 Status: Orderedcephalexin monohydrate 500 mg oral capsule 1 capsule = 500 mg, By Mouth, Every 6 hours, for 3 days, # 12 capsule, 0 Refills, Acute 06/11/21 13:35:00 EDT, 06/08/21 13:35:00 EDT, Capsule, [facility], Partial fill upon patient request if the prescription is for a schedule II opioid drMaira.. Start Date: 06/08/21 Stop Date: 06/11/21 Status: OrderedColace sodium 100 mg oral capsule 100 mg, 1, capsule, By Mouth, 2 times a day, # 20 capsule, Refills 0, Maintenance, 11/11/20 2:32:00 EST, Partial fill upon patient request if the prescription is for a schedule II opioid drug. Start Date: 11/11/20 Status: Orderedenoxaparin 150 mg/mL injectable solution = 150 mg, Subcutaneous Injection, Every 12 hours, # 14 mL, 0 Refills, Maintenance, 06/08/21 13:31:00EDT, Solution, Partial fill upon patient request if the prescription is for a schedule II opioid drug. Start Date: 06/08/21 Status: Orderedfinasteride 5 mg oral tablet 1 tablet = 5 mg, By Mouth, Daily, 0 Refills, Maintenance, 01/26/20 10:51:00 EDT, Tablet Start Date: 01/26/20 Status: Orderedgabapentin 300 mg oral capsule 600 mg, Capsule, By Mouth, Hold for: drowsy, SBP <90, 06/08/21 9:00:00 EDT Start Date: 06/08/21 Stop Date: 06/08/21 Status: Completedgabapentin 300 mg oral capsule 600 mg, 2, capsule, By Mouth, 3 times a day, Refills 0, Maintenance, 06/08/21 13:28:00 EDT, Partial fill upon patient request if the prescription is for a schedule II opioid drug. Start Date: 06/08/21 Status: OrderedHYDROmorphone Inj 2 mg, Injection, IV Push Slowly, Every 8 hours, PRN for Pain , Severe, Routine, 06/02/21 23:49:00 EDT Start Date: 06/02/21 Stop Date: 06/08/21 Status: DiscontinuedInsulin Lispro 3-15 units, Subcutaneous Injection, 3 times [...] 11/11/20 Status: OrderedLORazepam 2 mg oral tablet TAKE 1 TABLET BY MOUTH 3 TIMES DAILY NEEDED FOR 30 DAYS. Start Date: 06/02/21 Status: OrderedNicotine = 21 mg, Topically, Daily, 0 Refills, Maintenance, 04/02/21 12:07:00 EDT, Patch, Partial fill upon patient request if the prescription is for a schedule II opioid drug. Start Date: 04/02/21 Status: Orderedoxybutynin 10 mg/24 hr oral tablet, [...] Start Date: 04/02/21 Stop Date: 04/05/21 Status: Orderedpropranolol 60 mg oral capsule, extended release 60 mg, CR Capsule, By Mouth, Hold for: HR < 60, 06/08/21 9:00:00 EDT Start Date: 06/08/21 Stop Date: 06/08/21 Status: Completedrosuvastatin 40 mg oral tablet 1 tablet = 40 mg, By Mouth, Daily, # 30 tablet, 0 Refills, Maintenance, 06/19/20 21:23:00 EDT, Tablet Start Date: 06/19/20 Status: OrderedRybelsus 14 mg oral tablet 1 tablet = 14 mg, By Mouth, Daily, take at least 30 minutes before first food, beverage, or other oral meds, # 30 tablet, 0 Refills, Maintenance, 06/02/21 23:22:00 EDT, Tablet, Partial fill upon patient request if the prescription is for a schedule II... Start Date: 06/02/21 Status: OrderedtiZANidine 4 mg oral tablet 4 [...] 21:23:00 EDT, Capsule Start Date: 06/19/20 Status: Orderedwarfarin 5 mg oral tablet 1 tablet = 5 mg, By Mouth, Daily, # 30 tablet, 0 Refills, Maintenance, 06/08/21 13:32:00 EDT, Tablet, Partial fill upon patient request if the prescription is for a schedule II opioid drug. Start Date: 06/08/21 Status: Orderedzolpidem 10 mg oral tablet 1 tablet = 10 mg, By Mouth, Daily at bedtime, PRN as needed for insomnia, 0 Refills, Maintenance, 05/23/20 15:48:00 EDT, Tablet Start Date: 05/23/20 Status: Ordered Problem List Condition Effective Dates Status Health Status Informant Cellulitis(Confirmed) Active Depressive disorder(Confirmed) Active Tobacco dependence syndrome(Confirmed) Active Urinary incontinence(Confirmed) Active Results Orders for Microbiology Reports Name Date Blood Culture 06/02/21 Blood Culture #2 06/02/21 Microbiology Reports TEST:Blood Culture STATUS:Auth (Verified) BODY SITE: SOURCE:Blood COLLECTED DATE/TIME:06/02/21 3:47 PMBlood Culture SPECIMEN DESCRIPTION : BLOOD RT AC SPECIAL REQUESTS : NONE CULTURE : NO GROWTH 5 DAYS. REPORT STATUS : FINAL 06/07/2021TEST:Blood Culture, Second Order STATUS:Auth (Verified) BODY SITE: SOURCE:Blood COLLECTED DATE/TIME:06/02/21 3:47 PMBlood Culture, Second Order SPECIMEN DESCRIPTION : BLOOD RT HAND SPECIAL REQUESTS : NONE CULTURE : NO GROWTH 5 DAYS. REPORT STATUS : FINAL 06/07/2021adiology Reports Exam Date Time Procedure Performing Provider Status 06/02/21 6:05 PM Chest 2 Views Frontal and Lat Eliceo Coates; Lashawn th (Verified) Notes:(Chest 2 Views Frontal and Lat) Reason For Exam: Shortness of Breath RESULT: Chest 2 Views Frontal and Lat Chest 2 Views Frontal and Lat Hx of Present Illness: sepsis alert; Reason: Shortness of Breath; Clinical Question(s): CHF; Order Comment: pt. not in room 1668 COMPARISON: None. FINDINGS: Suboptimal exam due to patient rotation and decreased beam penetration. LINES AND TUBES: None. LUNGS AND PLEURA: Increased opacity along the left lower lateral aspect of the lung is, more apparent on lateral view. No right pleural effusion. Normal pulmonary vascularity. No pneumothorax. HEART, MEDIASTINUM AND BRIGHT: Heart is normal in size. Normal upper mediastinal and hilar contour. BONES AND SOFT TISSUES: No acute abnormality. Calcification at the left supraspinatus insertion. IMPRESSION: Suboptimal exam. Increased density over the left lower lateral lung which is more apparent on lateral projection could represent focal airspace opacification or loculated pleural effusion. WSN: [id number] Ordering Physician: Isabel Arzola Dictated By: Harsha Mayo MD Dictated Date/Time: 06/02/21 6:22 pm Reviewed By: Harsha Mayo MD Signed By: Harsha Mayo MD Signed Date/Time: 06/02/21 6:22 pm Transcribed By: LESLEE Transcribed Date/Time: 06/02/21 6:14 pm Vital Signs Most recent to oldest 1 2 3 [Reference Range]: Oxygen Saturation [94-100 %] 94 % 100 % 100 % (06/08/21 7:00 AM) (06/07/21 7:49 AM) (06/06/21 8:1 7 PM) Pulse Rate [55-90 bpm] 66 bpm 66 bpm 85 bpm (06/08/21 10:05 AM) (06/08/21 7:00 AM) (06/07/21 7: 00 PM) Blood Pressure [90-138/55-84 156/79 mm Hg 193/74 mm Hg 193 /74 mm Hg mm Hg] *H* *H* *H* (06/08/21 12:00 PM) (06/08/21 10:05 AM) (06/08/21 1 0:05 AM) Respiratory Rate [16-30 20 br/min 20 br/min 20 br/mi n br/min] (06/08/21 11:38 AM) (06/08/21 10:21 AM) (06/08/21 9 :00 AM) Temperature [96.8-100.4 98.2 DegF 98.5 DegF 98.1 Deg F DegF] (06/08/21 7:00 AM) (06/07/21 7:00 PM) (06/07/21 7:4 9 AM) Mode of Delivery (Oxygen) Room air Room air Room a ir (06/08/21 7:00 AM) (06/07/21 7:49 AM) (06/06/21 8:1 7 PM) Blood pressure sites Arm, right Arm, right Arm, right (06/08/21 7:00 AM) (06/07/21 7:49 AM) (06/06/21 8:1 7 PM) Temperature Route Oral Oral Oral (06/08/21 7:00 AM) (06/07/21 7:49 AM) (06/06/21 8:1 7 PM) Social History Social History Type Response Smoking Status Current every day smoker entered on: 09/15/17 Sex Female
--- OUTSIDE RECORDS SUMMARY | 2022-06-28 07:01 | XMS_ITS | Continuity of Care Document ---
:1970 Author Organization [facility] Address [address] [place] [address]- Care Team Providers Name Role Phone Simran Sobia HEREDIA Primary Care Physician Encounter [facility] [place] Date(s): 01/07/21 - 01/08/[address] [address] Discharge Disposition: A-D/C Home Attending Physician: Mihai Waddell MD Admitting Physician: Kirt Horowitz MD Referring Physician: Not on Staff, Referring [...] oral tablet 10 mg, Tablet, By Mouth, 01/08/21 9:00:00 EDT Start Date: 01/08/21 Stop Date: 01/08/21 Status: CompletedAspirin Low Dose 81 mg oral [...] drug. Start Date: 11/11/20 Status: OrderedDilaudid Inj 0.2 mg, Injection, IV Push Slowly, Once, PRN for Pain , Severe, Routine, 01/08/21 11:47:00 EDT Start Date: 01/08/21 Stop Date: 01/08/21 Status: Completedfinasteride 5 mg oral tablet 1 tablet = 5 mg, By Mouth, Daily, 0 Refills, Maintenance, 01/26/20 10:51:00 EDT, Tablet Start Date: 01/26/20 Status: Orderedgabapentin 300 mg oral capsule 900 mg, 3, capsule, By Mouth, 3 times a day, # 90 capsule, Refills 0, Maintenance, 01/27/20 12:16:00EDT Start Date: 01/27/20 Status: Orderedgabapentin 300 mg oral capsule 900 mg, Capsule, By Mouth, 01/08/21 9:00:00 EDT Start Date: 01/08/21 Stop Date: 01/08/21 Status: CompletedInsulin Lispro 3-15 units, Subcutaneous Injection, [...] drug. Start Date: 11/11/20 Status: Orderednystatin topical 582229 u/gm cream 1 application, Topically, 2 times [...] opioid drug. Start Date: 11/11/20 Status: OrderedoxyCODONE 5 mg oral tablet 10 mg, Tablet, By Mouth, Daily, PRN for Pain , Moderate, Routine, 01/07/21 20:39:00 EDT Start Date: 01/07/21 Stop Date: 01/08/21 Status: DiscontinuedOxyCONTIN 20 mg oral tablet, extended release 20 [...] 3 [Reference Range]: Oxygen Saturation [94-100 %] 98 % 98 % 95 % (01/08/21 8:00 AM) (01/08/21 12:00 AM) (01/07/21 9: 00 PM) Pulse Rate [55-90 bpm] 105 bpm 103 bpm 112 bpm *H* *H* *H* (01/08/21 8:00 AM) (01/08/21 12:00 AM) (01/07/21 9: 00 PM) Blood Pressure [90-138/55-84 185/89 mm Hg 147/74 mm Hg 166 /77 mm Hg mm Hg] *H* *H* *H* (01/08/21 8:05 AM) (01/08/21 12:00 AM) (01/07/21 9: 00 PM) Respiratory Rate [16-30 18 br/min 22 br/min 20 br/mi n br/min] (01/08/21 12:25 PM) (01/08/21 10:06 AM) (01/08/21 9 :05 AM) Temperature [96.8-100.4 DegF] 98.3 DegF 98.7 DegF 98 .5 DegF (01/08/21 12:00 AM) (01/07/21 7:00 PM) (01/07/21 8: 40 AM) Mode of Delivery (Oxygen) Room air Room air Room a ir (01/08/21 8:00 AM) (01/08/21 12:00 AM) (01/07/21 9: 00 PM) Blood pressure sites Arm, right Arm, right Arm, right (01/08/21 8:00 AM) (01/08/21 12:00 AM) (01/07/21 9: 00 PM) Temperature Route Oral Oral Oral (01/08/21 12:00 AM) (01/07/21 9:00 PM) (01/07/21 7: 00 PM) Social History Social History Type Response Smoking Status Current every day smoker entered on: 09/15/17 Sex Female
--- OUTSIDE RECORDS SUMMARY | 2022-06-28 07:01 | XMS_ITS | Continuity of Care Document ---
:1970 Author Organization [facility] Address [address] [place] [address]- Care Team Providers Name Role Phone Jonoanupama Sobia HEREDIA Primary Care Physician Encounter [facility] Date(s): 11/13/21 - 11/18/[address] [address] Encounter Diagnosis Abdominal pain (Final) - 11/12/21 Discharge Disposition: A-Transfer VNA/Home Health Attending Physician: Lesly Zarate MD Admitting Physician: Uriel MELCHOR, Beth Zhang Referring Physician: Not on Staff, Referring MD [...] oral capsule 600 mg, Capsule, By Mouth, 11/18/21 12:00:00 EST Start Date: 11/18/21 Stop Date: 11/18/21 Status: Completedgabapentin 300 mg oral capsule 600 [...] Refills, Maintenance, 11/03/21 12:11:00 EST, EC Tablet, [facility], Partial fill upon patient request if [...] Date: 09/29/21 Status: OrderedoxyCODONE 10 mg oral tablet 2 tablet = 20 mg, By Mouth, Every 4 hours, PRN Pain , Moderate, # 12 tablet, 0 Refills, Maintenance,11/18/21 11:33:00 EST, Tablet, Partial fill upon patient request if the prescription is for a schedule II opioid drug. Start Date: 11/18/21 Stop Date: 11/23/21 Status: OrderedoxyCODONE 5 mg oral tablet 30 mg, Tablet, By Mouth, Every 4 hours, Hold for: Drowsiness, RR <10, PRN for Pain , Moderate, Routine, 11/13/21 14:11:00 EST Start Date: 11/13/21 Stop Date: 11/18/21 Status: Discontinuedpropranolol 120 mg oral capsule, extended [...] 0 Refills, Maintenance, 07/27/21 14:56:00 EST, Solution, [facility] 3, Partial fill upon patient request [...] for Microbiology Reports Name Date Blood Culture 11/13/21 Blood Culture #2 11/13/21 Microbiology Reports TEST:Blood Culture STATUS:Auth (Verified) BODY SITE: SOURCE:Blood COLLECTED DATE/TIME:11/13/21 1:04 PMBlood Culture SPECIMEN DESCRIPTION : BLOOD RTHAND SPECIAL REQUESTS : NONE CULTURE : NO GROWTH 5 DAYS. REPORT STATUS : FINAL 11/18/2021TEST:Blood Culture, Second Order STATUS:Auth (Verified) BODY SITE: SOURCE:Blood COLLECTED DATE/TIME:11/13/21 1:04 PMBlood Culture, Second Order SPECIMEN DESCRIPTION : BLOOD RTHAND SPECIAL REQUESTS : NONE CULTURE : NO GROWTH 5 DAYS. REPORT STATUS : FINAL 11/18/2021 Vital Signs Most recent to oldest [Reference 1 2 3 Range]: Height 172 cm 172 cm 172 cm (11/18/21 8:12 AM) (11/17/21 9:02 PM) (11/16/21 7:43 P M) Weight 133.3 kg (11/13/21 6:39 AM) Oxygen Saturation [94-100 %] 91 % 92 % 91 % *L* *L* *L* (11/18/21 8:12 AM) (11/17/21 9:02 PM) (11/17/21 2:00 P M) Pulse Rate [55-90 bpm] 51 bpm 73 bpm 72 bpm *L* (11/17/21 9:02 PM) (11/17/21 2:00 PM ) (11/18/21 8:12 AM) Body Mass Index [18.5-24.99] 45.06 *>HHI* (11/13/21 6:39 AM) Blood Pressure [90-138/55-84 mm 150/72 mm Hg 142/103 mm Hg 133/62 mm Hg Hg] *H* *H* (11/17/21 2:00 PM) (11/18/21 8:12 AM) (11/17/21 9:02 PM) Respiratory Rate [16-30 br/min] 16 br/min 16 br/min 16 br/min (11/18/21 1:35 PM) (11/18/21 1:29 PM) (11/18/21 12:29 PM) Temperature [96.8-100.4 DegF] 98.6 DegF 98 DegF 98 .0 DegF (11/18/21 8:12 AM) (11/17/21 9:02 PM) (11/17/21 2:00 P M) Mode of Delivery (Oxygen) Room air Room air Room a ir (11/18/21 8:12 AM) (11/17/21 9:02 PM) (11/17/21 2:00 P M) Blood pressure sites Arm, right Arm, left Arm, left (11/17/21 9:02 PM) (11/17/21 2:00 PM) (11/17/21 8:00 A M) Temperature Route Oral Oral Oral (11/18/21 8:12 AM) (11/17/21 9:02 PM) (11/17/21 2:00 P M) Dry Weight 133.3 kg (11/13/21 6:39 AM) Social History Social History Type Response Smoking Status Current every day smoker entered on: 09/15/17 Sex
--- OUTSIDE RECORDS SUMMARY | 2022-06-28 07:01 | XMS_ITS | Continuity of Care Document ---
:1970 Author Organization [facility] Address [address] [place] [address]- Care Team Providers Name Role Phone Sobia Khalil DO Primary Care Physician [place] [facility] [place] - 05/31/[address] [address]- Discharge Disposition: A-D/C Walkout Attending Physician: Not on Staff, Attending MD Admitting Physician: Not on Staff, Admitting MD Referring Physician: Not on Staff, Referring MD Allergies, Adverse Reactions, Alerts Substance Reaction Severity Status acetaminophen extremely itchy Active shellfish1 Active Tylenol Active Fish2 Active MetFORMIN (Eqv-Glumetza) Active 1patient reports itchy/tingling [id number] reports itchy/tingling throat Immunizations Given and Recorded [...] EDT, ; Start Date: 02/08/22 Status: OrderedNystop 476175 u/gm powder 1 application, Topically, 2 times [...] Maintenance, 02/12/22 10:37:00 EDT, ER Tablet[facility], Partial fill upon patient request if [...] Range]: 1 2 Oxygen Saturation [94-100 %] 100 % 96 % (05/31/22 5:54 AM) (05/31/22 3:36 AM) Pulse Rate [55-90 bpm] 108 bpm 107 bpm *H* *H* (05/31/22 5:54 AM) (05/31/22 3:36 AM) Blood Pressure [90-138/55-84 mm Hg] 148/131 mm Hg 179/ 83 mm Hg *H* *H* (05/31/22 5:54 AM) (05/31/22 3:36 AM) Respiratory Rate [16-30 br/min] 16 br/min (05/31/22 3:36 AM) Temperature [96.8-100.4 DegF] 98.3 DegF 98.4 DegF (05/31/22 5:54 AM) (05/31/22 3:36 AM) Mode of Delivery (Oxygen) Room air (05/31/22 5:54 AM) Blood pressure sites Arm, right (05/31/22 5:54 AM) Temperature Route Oral Oral (05/31/22 5:54 AM) (05/31/22 3:36 AM) Social History Social History Type Response Smoking Status Never (less than 100 in life time) entered on: 05/13/22 Sex Care Team PersonnelName: Sobia Khalil DO Address: [address] [place] [address] [address] [place] [address]
--- OUTSIDE RECORDS SUMMARY | 2022-06-28 07:01 | XMS_ITS | Continuity of Care Document ---
:1970 Author Organization [facility] Address [address] [place] [address]- Care Team Providers Name Role Phone Sobia Khalil DO Primary Care Physician Encounter [facility] [place] Date(s): 06/07/21 - 07/07/[address] [address] Attending Physician: Not on Staff, Attending MD [...] 13:28:00 EDT Start Date: 06/08/21 Status: Orderedlamotrigine 200 mg oral tablet 1 [...] 16:35:00 EDT, Tablet Start Date: 07/06/21 Status: OrderedNovoLOG FlexPen 100 units/mL injectable solution Subcutaneous Injection, 3 times a day before meals, 26 units for small meal, 36 units for large meal, Maintenance, 07/06/21 16:32:00 EDT Start Date: 07/06/21 Status: OrderedNyamyc 100,000 units/g [...] Date: 04/02/21 Stop Date: 04/05/21 Status: Orderedpropranolol 120 mg oral capsule, extended [...] a schedule II... Start Date: 06/02/21 Status: OrderedTresiba FlexTouch 100 units/mL subcutaneous solution [...]
--- OUTSIDE RECORDS SUMMARY | 2022-06-28 07:01 | XMS_ITS | Continuity of Care Document ---
:1970 Author Organization [facility] Address [address] [place] [address]- Care Team Providers Name Role Phone Sobia Khalil DO Primary Care Physician Encounter [facility] [place] Date(s): 05/20/20 - 05/23/[address] [address]- [facility] Encounter Diagnosis Muscle spasm (Final) - 05/20/20 Discharge Disposition: A-D/C Home Attending Physician: Larissa MELCHOR, Carlo Mast Admitting Physician: Duane Hernandez MD Referring Physician: Not on Staff, Referring MD Allergies, Adverse Reactions, Alerts Substance Reaction Severity Status acetaminophen extremely itchy Active Immunizations Given and Recorded Vaccine Date Status Refusal Reason Hepatitis B Vaccine (old term) 03/22/08 Given Medications Albuterol 0.083% inhalation luisa 2.5 mg, 3, mL, Neb, Every 4 hours, PRN, Refills 0, Maintenance, Wheezing/Shortness of Breath, 01/26/20 10:51:00 EDT, Inhalation Solution Start Date: 01/26/20 Status: OrderedAtivan 1 mg oral tablet 2 tablet = 2 mg, By Mouth, 3 times a day, for 2 days, # 12 tablet, 0 Refills, Acute 05/24/20 12:48:00 EDT, 05/22/20 12:48:00 EDT, Tablet Start Date: 05/22/20 Stop Date: 05/24/20 Status: Orderedbaclofen 10 mg oral tablet 10 mg, 1, tablet, By Mouth, 3 times a day, Refills 0, Maintenance, 05/22/20 13:05:00 EDT Start Date: 05/22/20 Status: OrderedbuPROPion 150 mg/12 hours (SR) oral tablet, extended release 1 tablet = 150 mg, By Mouth, 2 times a day, 0 Refills, Maintenance, 01/26/20 10:51:00 EDT, SR Tablet Start Date: 01/26/20 Status: OrderedDilaudid 2 mg oral tablet 1.5 tablet = 3 mg, By Mouth, Every 4 hours, PRN Pain , Severe, # 45 tablet, 0 Refills, Soft Stop, 05/23/20 15:49:00 EDT, Tablet, Partial fill upon patient request Start Date: 05/23/20 Stop Date: 05/30/20 Status: Orderedfinasteride 5 mg oral tablet 1 [...] Tablet Start Date: 05/23/20 Status: Orderednystatin topical 426793 u/gm powder See Instructions, Topically 2 times a day, # 30 Gm, 0 Refills, Acute 05/28/20 13:05:00 EDT, 05/22/2013:05:00 EDT, Powder Start Date: 05/22/20 Stop Date: 05/28/20 Status: Orderedondansetron 4 mg oral tablet, disintegrating = 4 mg, By Mouth, Every 6 hours, PRN Nausea & Vomiting, 0 Refills, Maintenance, 01/26/20 10:49:00 EDT, Tablet Start Date: 01/26/20 Status: OrderedoxyCODONE 10 mg oral tablet 1 tablet = 10 mg, By Mouth, Every 4 hours, PRN Pain , Moderate, for 7 days, # 42 tablet, 0 Refills, Acute 05/30/20 16:04:00 EDT, 05/23/20 16:04:00 EDT, Tablet, Partial fill upon patient request Start Date: 05/23/20 Stop Date: 05/30/20 Status: OrderedOxyCONTIN 20 mg oral tablet, extended [...] Most recent to oldest 1 2 3 4 [Reference Range]: Height 172 cm 172 cm 172 cm (05/23/20 12:00 PM) (05/23/20 8:29 AM) (05/23/20 4:45 AM) Weight 140.5 kg 140.5 kg (05/20/20 9:00 PM) (05/20/20 8:16 PM) Oxygen Saturation 91 % 98 % 95 % [94-100 %] *L* (05/23/20 8:29 AM) (05/23/20 4:45 AM) (05/23/20 12:00 PM) Pulse Rate [55-90 bpm] 86 bpm 83 bpm 85 bpm (05/23/20 12:00 PM) (05/23/20 8:29 AM) (05/23/20 4:45 AM) Body Mass Index 47.49 [18.5-24.99] *>HHI* (05/20/20 9:00 PM) Blood Pressure 197/86 mm Hg 163/87 mm Hg 155/79 mm Hg [90-138/55-84 mm Hg] *H* *H* *H* (05/23/20 12:00 PM) (05/23/20 8:29 AM) (05/23/20 4:45 AM) Respiratory Rate [16-30 17 br/min 17 br/min 17 br/min 17 b r/min br/min] (05/23/20 3:50 PM) (05/23/20 2:53 PM) (05/23/20 2:53 PM) (05/23/20 2:53 PM) Temperature [96.8-100.4 98.8 DegF 98.6 DegF 97.9 DegF DegF] (05/23/20 12:00 PM) (05/23/20 8:29 AM) (05/23/20 4:45 AM) Mode of Delivery Room air Room air Room air (Oxygen) (05/23/20 12:00 PM) (05/23/20 8:29 AM) (05/23/20 4:45 AM) Blood pressure sites Arm, right Arm, left Arm, left (05/23/20 12:00 PM) (05/23/20 8:29 AM) (05/23/20 4:45 AM) Temperature Route Oral Oral Oral (05/23/20 12:00 PM) (05/23/20 8:29 AM) (05/23/20 4:45 AM) Dry Weight 140.5 kg (05/20/20 9:00 PM) Weight Obtained Via Bed scale (05/20/20 8:16 PM) Social History Social History Type Response Smoking Status Current every day smoker entered on: 09/15/17 Sex
--- OUTSIDE RECORDS SUMMARY | 2022-06-28 07:01 | XMS_ITS | Continuity of Care Document ---
:1970 Author Organization [facility] Address [address] [place] [id number]- Care Team Providers Name Role Phone Julianabeatriz Sobia HEREDIA Primary Care Physician Encounter [facility] [place] Date(s): 08/31/21 - 09/04/[address] [address] Encounter Diagnosis Pancreatitis (Final) - 08/31/21 Nausea and vomiting (Final) - 08/31/21 Discharge Disposition: A-D/C AMA Attending Physician: Corky Vargas MD Admitting Physician: Peggy Macias MD Referring [...] oral tablet 10 mg, Tablet, By Mouth, 09/04/21 9:00:00 EST Start Date: 09/04/21 Stop Date: 09/04/21 Status: CompletedAspirin Low Dose 81 mg oral [...] EDT Start Date: 07/06/21 Status: OrderedDilaudid Inj 1 mg, Injection, IV Push Slowly, Once, PRN for Pain , Severe, Routine, 09/04/21 14:16:00 EST Start Date: 09/04/21 Stop Date: 09/04/21 Status: Completedfinasteride 5 mg oral tablet 1 [...] 13:28:00 EDT Start Date: 06/08/21 Status: Orderedgabapentin 400 mg oral capsule 400 mg, Capsule, By Mouth, 09/04/21 15:00:00 EST Start Date: 09/04/21 Stop Date: 09/04/21 Status: Completedinsulin lispro 100 u/ml subcutaneous injection 22-36 units, [...] II opioid drug. Start Date: 08/22/21 Status: OrderedOxyCONTIN 20 mg oral tablet, extended release 20 mg, ER Tablet, By Mouth, 09/04/21 16:00:00 EST Start Date: 09/04/21 Stop Date: 09/04/21 Status: Completedpropranolol 120 mg oral capsule, extended release 1 capsule = 120 mg, By Mouth, Daily, Maintenance, 07/06/21 16:35:00 EDT, CR Capsule Start Date: 07/06/21 Status: Orderedpropranolol 60 mg oral capsule, extended release 120 mg, CR Capsule, By Mouth, 09/04/21 9:00:00 EST Start Date: 09/04/21 Stop Date: 09/04/21 Status: Completedrosuvastatin 40 mg oral tablet 1 tablet = 40 mg, By Mouth, Daily, # 30 tablet, 0 Refills, Maintenance, 06/19/20 21:23:00 EDT, Tablet Start Date: 06/19/20 Status: OrderedTresiba FlexTouch 100 units/mL subcutaneous solution = 80 units, Subcutaneous Injection, Daily, # 10 mL, 0 Refills, Maintenance, 07/27/21 14:56:00 EST, Solution, [facility], Partial fill upon patient request if [...] Tobacco dependence syndrome(Confirmed) Active Urinary incontinence(Confirmed) Active Procedures Procedure Date Related Diagnosis Body Site Status Appendectomy Completed Vital Signs Most recent to oldest 1 2 3 [Reference Range]: Height 174 cm 174 cm 174 cm (09/04/21 2:33 PM) (09/04/21 5:26 AM) (09/03/21 8:23 PM) Weight 133.8 kg (08/31/21 12:55 PM) Oxygen Saturation [94-100 96 % 98 % 97 % %] (09/04/21 2:33 PM) (09/04/21 5:26 AM) (09/03/21 8:23 PM) Pulse Rate [55-90 bpm] 73 bpm 74 bpm 75 bpm (09/04/21 2:33 PM) (09/04/21 8:38 AM) (09/04/21 5:26 AM) Body Mass Index 44.19 [18.5-24.99] *>HHI* (08/31/21 12:55 PM) Blood Pressure 144/74 mm Hg 147/76 mm Hg 147/76 mm Hg [90-138/55-84 mm Hg] *H* *H* *H* (09/04/21 2:33 PM) (09/04/21 8:39 AM) (09/04/21 8:38 AM) Respiratory Rate [16-30 19 br/min 18 br/min 19 br/mi n br/min] (09/04/21 3:36 PM) (09/04/21 3:32 PM) (09/04/21 2:35 PM) Temperature [96.8-100.4 98.3 DegF 98.7 DegF 98.2 Deg F DegF] (09/04/21 2:33 PM) (09/04/21 5:26 AM) (09/03/21 8:23 PM) Mode of Delivery (Oxygen) Room air Room air Room a ir (09/04/21 2:33 PM) (09/04/21 5:26 AM) (09/03/21 8:23 PM) Blood pressure sites Arm, right Arm, left Arm, right (09/04/21 2:33 PM) (09/04/21 5:26 AM) (09/03/21 8:23 PM) Temperature Route Oral Oral Oral (09/04/21 2:33 PM) (09/04/21 5:26 AM) (09/03/21 8:23 PM) Dry Weight 133.8 kg (08/31/21 12:55 PM) Social History Social History Type Response Smoking Status Current every day smoker entered on: 09/15/17 Sex
--- OUTSIDE RECORDS SUMMARY | 2022-06-28 07:01 | XMS_ITS | Continuity of Care Document ---
:1970 Author Organization [facility] Address [address] [place] [address]- Care Team Providers Name Role Phone Sobia Khalil DO Primary Care Physician Encounter [facility] [place] Date(s): 07/28/20 - 08/27/20 [facility] [address] [place] [id number] Attending Physician: Moses Turner Admitting Physician: Moses [...]
--- OUTSIDE RECORDS SUMMARY | 2022-06-28 07:01 | XMS_ITS | Continuity of Care Document ---
:1970 Author Organization [facility] Address [address] [place] [address]- Care Team Providers Name Role Phone Sobia Khalil DO Primary Care Physician [place] [facility] [place] Date(s): 07/02/20 - 07/03/[address] [address]- [facility] Encounter Diagnosis Acute bilateral back pain (Final) - 07/02/20 Discharge Disposition: A-D/C Home Attending Physician: Tia Etienne MD Admitting Physician: Calvin Griffin MD Referring Physician: Not on Staff, Referring [...] 05/29/20 12:56:00 EDT, Route to Pharmacy Electronically, [facility], 173, cm, 05/29/20 11:31:00 EDT, Height, 141... Start Date: 05/29/20 Stop Date: 07/28/20 Status: OrderedDilaudid 2 mg oral tablet 1 tablet = 2 mg, By Mouth, Every 4 hours, PRN for pain, for 2 days, # 7 tablet, 0 Refills, Acute 07/05/20 8:19:00 EDT, 07/03/20 8:19:00 EDT, Tablet, Partial fill upon patient request Start Date: 07/03/20 Stop Date: 07/05/20 Status: Orderedfinasteride 5 mg oral tablet 1 [...] 06/19/20 21:23:00 EDT Start Date: 06/19/20 Status: OrderedLORazepam 2 mg oral tablet 1 tablet = 2 mg, By Mouth, 3 times a day, PRN as needed for anxiety, for 2 days, # 5 tablet, 0 Refills, Acute 07/05/20 8:16:00 EDT, 07/03/20 8:16:00 EDT, Tablet Start Date: 07/03/20 Stop Date: 07/05/20 Status: OrderedMaalox Plus Liquid 30 mL, By Mouth, Every 4 hours, PRN Dyspepsia, 0 Refills, Maintenance, 01/26/20 10:49:00 EDT, Suspension Start Date: 01/26/20 Status: Orderednabumetone 500 mg oral tablet 1 tablet = 500 mg, By Mouth, 2 times a day, PRN Pain , Moderate, # 60 tablet, 0 Refills, Maintenance, 05/23/20 15:44:00 EDT, Tablet Start Date: 05/23/20 Status: Orderednystatin topical 924049 u/gm powder 1 application, Topically, 2 times a day, for 30 days, # 30 Gm, 1 Refills, Acute 07/28/20 12:57:00 EST, 05/29/20 12:57:00 EDT, Powder, [facility], 1 application Topically 2 times a day,[id number], 173, cm, 05/29/20 11:31:00 EDT, Height, 141... [...] Height 173 cm 173 cm 173 cm (07/03/20 7:39 AM) (07/02/20 7:52 PM) (07/02/20 4:57 PM) Weight 137.7 kg 137.7 kg (07/02/20 6:47 AM) (07/02/20 6:47 AM) Oxygen Saturation [94-100 %] 98 % 97 % 97 % (07/03/20 7:39 AM) (07/02/20 7:52 PM) (07/02/20 4:57 PM) Pulse Rate [55-90 bpm] 82 bpm 82 bpm 81 bpm (07/03/20 8:13 AM) (07/03/20 7:39 AM) (07/02/20 7:52 PM) Body Mass Index [18.5-24.99] 46.01 *>HHI* (07/02/20 6:47 AM) Blood Pressure [90-138/55-84 146/71 mm Hg 146/71 mm Hg 146 /71 mm Hg mm Hg] *H* *H* *H* (07/03/20 8:14 AM) (07/03/20 8:13 AM) (07/03/20 8:12 AM) Respiratory Rate [16-30 16 br/min 16 br/min 18 br/mi n br/min] (07/03/20 9:14 AM) (07/03/20 9:12 AM) (07/03/20 8:14 AM) Temperature [96.8-100.4 98.4 DegF 98.6 DegF 97.3 Deg F DegF] (07/03/20 7:39 AM) (07/02/20 7:52 PM) (07/02/20 4:57 PM) Mode of Delivery (Oxygen) Room air Room air Room a ir (07/03/20 7:39 AM) (07/02/20 7:52 PM) (07/02/20 4:57 PM) Blood pressure sites Arm, right Arm, right Arm, right (07/03/20 7:39 AM) (07/02/20 7:52 PM) (07/02/20 4:57 PM) Temperature Route Oral Oral Oral (07/03/20 7:39 AM) (07/02/20 7:52 PM) (07/02/20 4:57 PM) Dry Weight 137.7 kg (07/02/20 6:47 AM) Weight Obtained Via Bed scale (07/02/20 6:47 AM) Social History Social History Type Response Smoking Status Current every day smoker entered on: 09/15/17 Sex
--- OUTSIDE RECORDS SUMMARY | 2022-06-28 07:01 | XMS_ITS | Continuity of Care Document ---
:1970 Author Organization [facility] Address [address] [place] [address]- Care Team Providers Name Role Phone Geovany AUSTIN, Maria Antonia Primary Care Physician Encounter [facility] [place] Date(s): 02/22/22 - 02/25/[address] [address]- Encounter Diagnosis Acute pain (Final) - 02/23/22 Discharge Disposition: A-D/C Home Attending Physician: Kandis Ceballos MD Admitting Physician: Corky Vargas MD Referring Physician: Not on Staff, Referring [...] oral tablet 10 mg, Tablet, By Mouth, 02/25/22 9:00:00 EDT Start Date: 02/25/22 Stop Date: 02/25/22 Status: CompletedAspirin Low Dose 81 mg oral [...] 10:59:00 EDT, ; Start Date: 02/08/22 Status: OrderedDilaudid Inj 1 mg, Injection, IV Push Slowly, Every 4 hours, PRN for Pain , Severe, Routine, 02/22/22 19:35:00 EDT Start Date: 02/22/22 Stop Date: 02/25/22 Status: DiscontinuedDocusate/Senna Tablet 1 tablet, By Mouth, [...] Daily in AM, Maintenance, 02/08/22 11:00:00 EDT, [place], ; Start Date: 02/08/22 Status: Orderedgabapentin 300 mg oral capsule 300 mg, Capsule, By Mouth, 02/25/22 11:00:00 EDT Start Date: 02/25/22 Stop Date: 02/25/22 Status: Completedgabapentin 300 mg oral capsule 600 mg, 2, capsule, By Mouth, Daily, in afternoon, Maintenance, 07/06/21 16:31:00 EDT Start Date: 07/06/21 Status: Orderedgabapentin 300 mg oral capsule 900 mg, 3, capsule, By Mouth, 2 times a day, AM + Bedtime, Refills 0, Maintenance, 06/08/21 13:28:00EDT Start Date: 06/08/21 Status: Orderedgabapentin 400 mg oral capsule 400 mg, Capsule, By Mouth, 02/25/22 9:00:00 EDT Start Date: 02/25/22 Stop Date: 02/25/22 Status: Completedlamotrigine 25 mg oral tablet 50 mg, 2, [...] 10:59:00 EDT, ; Start Date: 02/08/22 Status: OrderedNyamyc 100,000 units/g topical powder 1 application, Topically, 2 times a day, Maintenance, 07/06/21 16:35:00 EDT, Powder Start Date: 07/06/21 Status: Orderedomeprazole 20 mg oral delayed release tablet = 20 mg, By Mouth, Daily, # 14 tablet, 0 Refills, Maintenance, 11/03/21 12:11:00 EST, EC Tablet, [facility], Partial fill upon patient request if the prescription is for a schedule II opioid drug., 172, cm, 11/03/21 7:39:00 EST, Height,... Start Date: 11/03/21 Stop Date: 11/17/21 Status: Orderedondansetron 4 mg oral tablet, disintegrating 1 tablet = 4 mg, By Mouth, Every 8 hours, PRN as needed for nausea/vomiting, Maintenance, 02/08/22 11:00:00 EDT, DIS Tablet, ; Start Date: 02/08/22 Status: OrderedOxyCONTIN 10 mg oral tablet, extended release 30 mg, ER Tablet, By Mouth, 02/25/22 8:00:00 EDT Start Date: 02/25/22 Stop Date: 02/25/22 Status: CompletedOxyCONTIN 30 mg oral tablet, extended release 1 tablet = 30 mg, By Mouth, Every 12 hours, # 14 tablet, 0 Refills, Maintenance, 02/12/22 10:37:00 EDT, ER Tablet, [facility] 3, Partial fill upon [...] release 120 mg, CR Capsule, By Mouth, 02/25/22 9:00:00 EDT Start Date: 02/25/22 Stop Date: 02/25/22 Status: Completedrosuvastatin 40 mg oral tablet 1 [...] for Microbiology Reports Name Date Blood Culture 02/23/22 Blood Culture #2 02/23/22 Microbiology Reports TEST:Blood Culture STATUS:Unauthenticated BODY SITE: SOURCE:Blood COLLECTED DATE/TIME:02/23/22 8:29 AMBlood Culture SPECIMEN DESCRIPTION : BLOOD RIGHT SPECIAL REQUESTS : NONE CULTURE : NO GROWTH AFTER 48 HOURS REPORT STATUS : PRELIMINARY REPORT TEST:Blood Culture, Second Order STATUS:Unauthenticated BODY SITE: SOURCE:Blood COLLECTED DATE/TIME:02/23/22 8:29 AMBlood Culture, Second Order SPECIMEN DESCRIPTION : BLOOD NOSITE SPECIAL REQUESTS : NONE CULTURE : NO GROWTH AFTER 48 HOURS REPORT STATUS : PRELIMINARY REPORT Vital Signs Most recent to 1 2 3 4 5 oldest [Reference Range]: Height 173 cm 173 cm 173 cm (02/24/22 7:43 PM) (02/23/22 8:38 AM) (02/22/22 2:58 PM) Weight 129 kg (02/22/22 2:58 PM) Oxygen Saturation 94 % 99 % 100 % [94-100 %] (02/25/22 7:00 AM) (02/24/22 7:43 PM) (02/24/22 7:00 AM) Pulse Rate [55-90 73 bpm 73 bpm 67 bpm bpm] (02/25/22 8:31 AM) (02/25/22 7:00 AM) (02/24/22 7:43 PM) Body Mass Index 43.1 [18.5-24.99] *>HHI* (02/22/22 2:58 PM) Blood Pressure 142/67 mm Hg 142/67 mm Hg 142/67 mm Hg [90-138/55-84 mm Hg] *H* *H* *H* (02/25/22 8:31 AM) (02/25/22 8:31 AM) (02/25/22 7:00 AM) Respiratory Rate 18 br/min 18 br/min 18 br/min 18 br/min 18 br/mi n [16-30 br/min] (02/25/22 1:35 PM) (02/25/22 12:35 PM) (02/25/22 11:43 AM) (02/25/22 11:43 AM) (02/25/22 11:43 AM) Temperature 97.8 DegF 97.9 DegF 97.6 DegF [96.8-100.4 DegF] (02/25/22 7:00 AM) (02/24/22 7:43 PM) (02/24/22 7:00 AM) Mode of Delivery Room air Room air Room air (Oxygen) (02/25/22 7:00 AM) (02/24/22 7:43 PM) (02/24/22 7:00 AM) Blood pressure sites Arm, left Arm, right Arm, right (02/25/22 7:00 AM) (02/24/22 7:43 PM) (02/24/22 7:00 AM) Temperature Route Oral Oral Oral (02/25/22 7:00 AM) (02/24/22 7:43 PM) (02/24/22 7:00 AM) Dry Weight 129 kg (02/22/22 2:58 PM) Weight Obtained Via Patient/family stated (02/22/22 2:58 PM) Dry Weight Obtained Patient/family stated Via (02/22/22 2:58 PM) Social History Social History Type Response Smoking Status Current every day smoker entered on: 09/15/17 Sex
--- OUTSIDE RECORDS SUMMARY | 2022-06-28 07:01 | XMS_ITS | Continuity of Care Document ---
:1970 Author Organization [facility] Address [address] [place] [address]- Care Team Providers Name Role Phone Geovany AUSTIN, Maria Antonia Primary Care Physician Encounter [facility] [place] Date(s): 03/22/22 - 03/22/[address] [address]- Discharge Disposition: A-D/C Walkout Attending Physician: Not on Staff, Attending MD Admitting Physician: Not on Staff, Admitting MD Referring Physician: Not on Staff, Referring MD Allergies, Adverse Reactions, Alerts Substance Reaction Severity Status acetaminophen extremely itchy Active shellfish1 Active Tylenol Active Fish2 Active MetFORMIN (Eqv-Glumetza) Active 1patient reports itchy/tingling [id number] reports itchy/tingling throat Immunizations Given and Recorded [...] EDT, Tablet, ; Start Date: 02/08/22 Status: OrderedAspirin Low Dose 81 mg oral [...] Daily in AM, Maintenance, 02/08/22 11:00:00 EDT, [place], ; Start Date: 02/08/22 Status: Orderedgabapentin 300 mg oral capsule See Instructions, 900 [...] 10:59:00 EDT, ; Start Date: 02/08/22 Status: Orderedomeprazole 20 mg oral delayed release tablet = 20 mg, By Mouth, Daily, # 14 tablet, 0 Refills, Maintenance, 11/03/21 12:11:00 EST, EC Tablet, [facility], Partial fill upon patient [...] opioid drug. Start Date: 03/15/22 Status: OrderedOxyCONTIN 30 mg oral tablet, extended release 1 tablet = 30 mg, By Mouth, Every 12 hours, # 14 tablet, 0 Refills, Maintenance, 02/12/22 10:37:00 EDT, ER Tablet, [facility], Partial fill upon patient [...] [Reference Range]: 1 Oxygen Saturation [94-100 %] 97 % (03/22/22 3:15 AM) Pulse Rate [55-90 bpm] 99 bpm *H* (03/22/22 3:15 AM) Blood Pressure [90-138/55-84 mm Hg] 179/100 mm Hg *H* (03/22/22 3:15 AM) Respiratory Rate [16-30 br/min] 20 br/min (03/22/22 3:15 AM) Temperature [96.8-100.4 DegF] 98.1 DegF (03/22/22 3:15 AM) Mode of Delivery (Oxygen) Room air (03/22/22 3:15 AM) Blood pressure sites Arm, right (03/22/22 3:15 AM) Temperature Route Oral (03/22/22 3:15 AM) Social History Social History Type Response Smoking Status Current every day smoker entered on: 09/15/17 Sex
--- OUTSIDE RECORDS SUMMARY | 2022-06-28 07:01 | XMS_ITS | Continuity of Care Document ---
:1970 Author Organization [facility] Address [address] [place] [address]- Care Team Providers Name Role Phone Sobia Khalil DO Primary Care Physician Encounter [facility] Date(s): 05/23/20 - 05/23/[address] [address]- [facility] Encounter Diagnosis Back pain (Final) - 05/23/20 Discharge Disposition: A-D/C Home Attending Physician: Manuel Rodriguez DO Admitting Physician: Manuel Rodriguez DO Referring Physician: Not on Staff, Referring [...] Tablet Start Date: 05/23/20 Status: Orderednystatin topical 745104 u/gm powder See Instructions, Topically 2 times [...] [Reference Range]: 1 Oxygen Saturation [94-100 %] 98 % (05/23/20 7:28 PM) Pulse Rate [55-90 bpm] 79 bpm (05/23/20 7:28 PM) Blood Pressure [90-138/55-84 mm Hg] 154/78 mm Hg *H* (05/23/20 7:28 PM) Respiratory Rate [16-30 br/min] 16 br/min (05/23/20 7:28 PM) Temperature [96.8-100.4 DegF] 98.0 DegF (05/23/20 7:28 PM) Mode of Delivery (Oxygen) Room air (05/23/20 7:28 PM) Blood pressure sites Arm, right (05/23/20 7:28 PM) Temperature Route Oral (05/23/20 7:28 PM) Social History Social History Type Response Smoking Status Current every day smoker entered on: 09/15/17 Sex
--- OUTSIDE RECORDS SUMMARY | 2022-06-28 07:01 | XMS_ITS | Continuity of Care Document ---
:1970 Author Organization [facility] Address [address] [place] [id number]- Care Team Providers Name Role Phone Sobia Khalil DO Primary Care Physician Encounter [facility] [place] Date(s): 11/09/20 - 11/09/[address] [address]- Encounter Diagnosis Chronic pain (Final) - 11/09/20 Discharge Disposition: A-D/C Home Attending Physician: Raphael Lanier MD Admitting Physician: Raphael Lanier MD Referring Physician: Not on Staff, Referring [...] 1 mg, Injection, IV Push Slowly, Once, STAT, 11/09/20 6:05:00 EST, Stop date 11/09/20 6:05:00 EST Start Date: 11/09/20 Stop Date: 11/09/20 Status: Completedfinasteride 5 mg oral tablet 1 [...] Range]: Oxygen Saturation [94-100 %] 99 % 98 % 97 % (11/09/20 9:07 AM) (11/09/20 6:02 AM) (11/09/20 3:4 4 AM) Pulse Rate [55-90 bpm] 99 bpm 110 bpm 115 bpm *H* *H* *H* (11/09/20 9:07 AM) (11/09/20 6:02 AM) (11/09/20 3:4 4 AM) Blood Pressure [90-138/55-84 116/79 mm Hg 165/89 mm Hg 147 /76 mm Hg mm Hg] (11/09/20 9:07 AM) *H* *H* (11/09/20 6:02 AM) (11/09/20 3:44 AM) Respiratory Rate [16-30 18 br/min 18 br/min 18 br/mi n br/min] (11/09/20 9:07 AM) (11/09/20 7:05 AM) (11/09/20 6:0 2 AM) Temperature [96.8-100.4 DegF] 98.9 DegF 99.1 DegF (11/09/20 6:02 AM) (11/09/20 12:57 AM) Mode of Delivery (Oxygen) Room air Room air Room a ir (11/09/20 9:07 AM) (11/09/20 6:02 AM) (11/09/20 3:4 4 AM) Blood pressure sites Arm, right Arm, right Arm, right (11/09/20 9:07 AM) (11/09/20 2:51 AM) (11/09/20 1:2 5 AM) Temperature Route Oral Oral (11/09/20 6:02 AM) (11/09/20 12:57 AM) Social History Social History Type Response Smoking Status Current every day smoker entered on: 09/15/17 Sex
--- OUTSIDE RECORDS SUMMARY | 2022-06-28 07:01 | XMS_ITS | Continuity of Care Document ---
:1970 Author Organization [facility] Address [address] [place] [address]- Care Team Providers Name Role Phone Geovany AUSTIN, Maria Antonia Primary Care Physician Encounter [facility] [place] Date(s): 12/27/21 - 12/29/[address] [address]- Encounter Diagnosis Sepsis (Final) - 12/27/21 Fever (Final) - 12/27/21 Abdominal pain (Final) - 12/27/21 Discharge Disposition: A-D/C Home Attending Physician: Tia Etienne MD Admitting Physician: Dian Roblero MD Referring Physician: Not on Staff, Referring [...] oral tablet 10 mg, Tablet, By Mouth, 12/29/21 9:00:00 EDT Start Date: 12/29/21 Stop Date: 12/29/21 Status: CompletedamLODIPine 10 mg oral tablet 1 [...] oral capsule 900 mg, Capsule, By Mouth, Hold for: RR less than 14, lethargy or drowsiness, 12/29/21 9:00:00 EDT Start Date: 12/29/21 Stop Date: 12/29/21 Status: Completedgabapentin 300 mg oral capsule 600 [...] 06/08/21 13:28:00 EDT Start Date: 06/08/21 Status: OrderedHYDROmorphone Inj 2 mg, Injection, IV Push Slowly, Every 3 hours, Hold for: RR less than 14, lethargy, drowsiness, PRNfor Pain , Severe, Routine, 12/27/21 23:04:00 EDT Start Date: 12/27/21 Stop Date: 12/29/21 Status: Discontinuedinsulin lispro 100 u/ml subcutaneous injection 4-12 units, [...] Refills, Maintenance, 11/03/21 12:11:00 EST, EC Tablet, [facility], Partial fill upon patient [...] Refills, Maintenance, 12/03/21 15:53:00 EDT, ER Tablet, [facility], Partial fill upon patient [...] release 120 mg, CR Capsule, By Mouth, 12/29/21 9:00:00 EDT Start Date: 12/29/21 Stop Date: 12/29/21 Status: Completedrosuvastatin 40 mg oral tablet 1 [...] 0 Refills, Maintenance, 12/03/21 11:50:00 EDT, Solution, [facility], Partial fill upon patient request if the prescription is for a schedule II opioid drug., 172, cm, ... Start Date: 12/03/21 Status: OrderedVitamin D3 [...] for Microbiology Reports Name Date Blood Culture 12/27/21 Blood Culture #2 12/27/21 Microbiology Reports TEST:Blood Culture, Second Order STATUS:Unauthenticated BODY SITE: SOURCE:Blood COLLECTED DATE/TIME:12/27/21 4:22 PMBlood Culture, Second Order SPECIMEN DESCRIPTION : BLOOD L SPECIAL REQUESTS : NONE CULTURE : NO GROWTH AFTER 48 HOURS REPORT STATUS : PRELIMINARY REPORT TEST:Blood Culture STATUS:Unauthenticated BODY SITE: SOURCE:Blood COLLECTED DATE/TIME:12/27/21 3:52 PMBlood Culture SPECIMEN DESCRIPTION : BLOOD R SPECIAL REQUESTS : NONE CULTURE : NO GROWTH AFTER 48 HOURS REPORT STATUS : PRELIMINARY REPORT Radiology Reports Exam Date Time Procedure Performing Provider Status 12/27/21 2:56 PM Chest Portable Aminata , Eliceo; Auth (Verified) Notes:(Chest Portable) Reason For Exam: Shortness of BreathRESULT: Chest Portable Chest AP portable semiupright x2 Hx of Present Illness: Dyspnea and severe pain COMPARISON: 12/02/2021, 09/29/2021 FINDINGS: LINES AND TUBES: None. LUNGS AND PLEURA: 1st image is severely rotated to the right prompting repeat. Clear lungs. No pleural effusion. No pneumothorax. HEART, MEDIASTINUM AND BRIGHT: Heart is normal in size. Normal upper mediastinal and hilar contour. BONES AND SOFT TISSUES: Normal. IMPRESSION: Normal. WSN: [id number] Ordering Physician: Ina Wayne Dictated By: Iban Canas MD Dictated Date/Time: 12/27/21 3:00 pm Reviewed By: Iban Canas MD Signed By: Iban Canas MD Signed Date/Time: 12/27/21 3:00 pm Transcribed By: LESLEE Transcribed Date/Time: 12/27/21 2:57 pm Exam Date Time Procedure Performing Provider Status 12/27/21 2:56 PM Chest Portable Aminata , Eliceo; Auth (Verified) Notes:(Chest Portable) Reason For Exam: Shortness of BreathRESULT: Chest Portable Chest AP portable semiupright x2 Hx of Present Illness: Dyspnea and severe pain COMPARISON: 12/02/2021, 09/29/2021 FINDINGS: LINES AND TUBES: None. LUNGS AND PLEURA: 1st image is severely rotated to the right prompting repeat. Clear lungs. No pleural effusion. No pneumothorax. HEART, MEDIASTINUM AND BRIGHT: Heart is normal in size. Normal upper mediastinal and hilar contour. BONES AND SOFT TISSUES: Normal. IMPRESSION: Normal. WSN: [id number] Ordering Physician: Ina Wayne Dictated By: Iban Canas MD Dictated Date/Time: 12/27/21 3:00 pm Reviewed By: Iban Canas MD Signed By: Iban Canas MD Signed Date/Time: 12/27/21 3:00 pm Transcribed By: LESLEE Transcribed Date/Time: 12/27/21 2:57 pm Vital Signs Most recent to oldest 1 2 3 [Reference Range]: Height 173 cm 173 cm 173 cm (12/29/21 5:55 AM) (12/28/21 11:41 PM) (12/28/21 7: 27 PM) Weight 133.8 kg 133.8 kg 137 kg (12/28/21 1:46 PM) (12/28/21 1:28 PM) (12/28/21 10: 01 AM) Oxygen Saturation [94-100 97 % 97 % 96 % %] (12/29/21 7:00 AM) (12/29/21 5:55 AM) (12/28/21 11: 41 PM) Pulse Rate [55-90 bpm] 74 bpm 74 bpm 73 bpm (12/29/21 8:00 AM) (12/29/21 7:00 AM) (12/29/21 5:5 5 AM) Body Mass Index 44.71 45.78 45.78 [18.5-24.99] *>HHI* *>HHI* *>HHI* (12/28/21 1:28 PM) (12/28/21 10:01 AM) (12/28/21 6: 30 AM) Blood Pressure 125/72 mm Hg 125/72 mm Hg 125/72 mm Hg [90-138/55-84 mm Hg] (12/29/21 8:01 AM) (12/29/21 8:00 AM) ( 2 7:00 AM) Respiratory Rate [16-30 18 br/min 18 br/min 18 br/mi n br/min] (12/29/21 8:23 AM) (12/29/21 8:23 AM) (12/29/21 8:0 0 AM) Temperature [96.8-100.4 98.0 DegF 98.6 DegF 98.7 Deg F DegF] (12/29/21 7:00 AM) (12/29/21 5:55 AM) (12/28/21 11: 41 PM) Mode of Delivery (Oxygen) Room air Room air Room a ir (12/29/21 7:00 AM) (12/29/21 5:55 AM) (12/28/21 11: 41 PM) Blood pressure sites Arm, right Arm, right Arm, right (12/29/21 7:00 AM) (12/29/21 5:55 AM) (12/28/21 11: 41 PM) Temperature Route Oral Oral Oral (12/29/21 7:00 AM) (12/29/21 5:55 AM) (12/28/21 11: 41 PM) Dry Weight 133.8 kg 137 kg 137 kg (12/28/21 1:28 PM) (12/28/21 10:01 AM) (12/28/21 6: 30 AM) Weight Obtained Via Bed scale Bed scale (12/28/21 1:46 PM) (12/28/21 1:28 PM) Dry Weight Obtained Via Bed scale Patient/family stated (12/28/21 1:28 PM) (12/27/21 2:30 PM) Social History Social History Type Response Smoking Status Current every day smoker entered on: 09/15/17 Sex
--- OUTSIDE RECORDS SUMMARY | 2022-06-28 07:01 | XMS_ITS | Continuity of Care Document ---
:1970 Author Organization [facility] Address [address] [place] [address]- Care Team Providers Name Role Phone Sobia Khalil DO Primary Care Physician [place] [facility] [place] - 06/24/[address] [address]- [facility] Encounter Diagnosis Back pain (Final) - 06/19/20 Discharge Disposition: A-D/C Home Attending Physician: Rupal Chahal MD Admitting Physician: Mer MELCHOR, Chun Rogers [...] 05/29/20 12:56:00 EDT, Route to Pharmacy Electronically, [facility], 173, cm, 05/29/20 11:31:00 EDT, Height, [...] Maintenance, 01/27/20 12:16:00EDT Start Date: 01/27/20 Status: OrderedHYDROmorphone 4 mg oral tablet 1 tablet = 4 mg, By Mouth, Every 8 hours, PRN Pain , Moderate, for 2 days, # 6 tablet, 0 Refills, Acute 06/26/20 14:41:00 EDT, 06/24/20 14:41:00 EDT, Tablet, Partial fill upon patient request; Start Date: 06/24/20 Stop Date: 06/26/20 Status: OrderedInsulin Lispro 3-15 units, Subcutaneous Injection, [...] a day, PRN as needed for anxiety, 0 Refills, Maintenance, 06/06/20 5:39:00 EDT, Tablet Start Date: 06/06/20 Status: OrderedMaalox Plus Liquid 30 mL, By Mouth, Every 4 hours, PRN Dyspepsia, 0 Refills, Maintenance, 01/26/20 10:49:00 EDT, Suspension Start Date: 01/26/20 Status: Orderednabumetone 500 mg oral tablet 1 tablet = 500 mg, By Mouth, 2 times a day, PRN Pain , Moderate, # 60 tablet, 0 Refills, Maintenance, 05/23/20 15:44:00 EDT, Tablet Start Date: 05/23/20 Status: Orderednystatin topical 756659 u/gm powder 1 application, Topically, 2 times a day, for 30 days, # 30 Gm, 1 Refills, Acute 07/28/20 12:57:00 EST, 05/29/20 12:57:00 EDT, Powder, [facility], 1 application Topically 2 times a day,[id number], 173, cm, 05/29/20 11:31:00 EDT, Height, 141... Start Date: 05/29/20 Stop Date: 07/28/20 Status: Orderedondansetron 4 mg oral tablet, disintegrating = 4 mg, By Mouth, Every 6 hours, PRN Nausea & Vomiting, 0 Refills, Maintenance, 01/26/20 10:49:00 EDT, Tablet Start Date: 01/26/20 Status: OrderedoxyCODONE 10 mg oral tablet 1 tablet = 10 mg, By Mouth, Daily, for 2 days, 1 TABLET NEEDED ONCE PER DAY FOR BREAKTHROUGH PAIN, # 2 tablet, 0 Refills, Acute 06/26/20 15:27:00 EDT, 06/24/20 15:27:00 EDT, Tablet, Partial fill upon patient request Start Date: 06/24/20 Stop Date: 06/26/20 Status: OrderedOxyCONTIN 20 mg oral tablet, extended release 20 mg, 1, tablet, By Mouth, Every 12 hours, # 4 tablet, Refills 0, Tot. Refills 0, Maintenance, 06/24/20 15:26:00 EDT, Print Requisition, Partial fill upon patient request Start Date: 06/24/20 Stop Date: 06/26/20 Status: Orderedpropranolol 60 mg oral capsule, extended [...] 1 2 3 4 [Reference Range]: Height 173 cm 173 cm 173 cm (06/24/20 11:14 AM) (06/24/20 7:12 AM) (06/24/20 4:17 AM) Weight 137.7 kg 137.7 kg (06/19/20 10:30 PM) (06/19/20 10:22 PM) Oxygen Saturation 96 % 96 % 97 % [94-100 %] (06/24/20 11:14 AM) (06/24/20 7:12 AM) (06/24/20 4:17 AM) Pulse Rate [55-90 bpm] 84 bpm 89 bpm 89 bpm (06/24/20 11:14 AM) (06/24/20 7:22 AM) (06/24/20 7:12 AM) Body Mass Index 46.01 [18.5-24.99] *>HHI* (06/19/20 10:30 PM) Blood Pressure 102/72 mm Hg 111/69 mm Hg 111/69 mm Hg 111/69 mm Hg [90-138/55-84 mm Hg] (06/24/20 11:14 AM) (06/24/20 7:22 AM) (06/24/20 7:22 AM) (06/24/20 7:22 AM) Respiratory Rate [16-30 18 br/min 18 br/min 18 br/min br/min] (06/24/20 4:02 PM) (06/24/20 2:04 PM) (06/24/20 2:04 PM) Temperature [96.8-100.4 98.5 DegF 98.1 DegF 98.5 DegF DegF] (06/24/20 11:14 AM) (06/24/20 7:12 AM) (06/24/20 4:17 AM) Mode of Delivery Room air Room air Room air (Oxygen) (06/24/20 11:14 AM) (06/24/20 7:12 AM) (06/24/20 4:17 AM) Blood pressure sites Arm, right Arm, right Arm, right (06/24/20 11:14 AM) (06/24/20 7:12 AM) (06/24/20 4:17 AM) Temperature Route Oral Oral Oral (06/24/20 11:14 AM) (06/24/20 7:12 AM) (06/24/20 4:17 AM) Dry Weight 137.7 kg (06/19/20 10:30 PM) Weight Obtained Via Bed scale (06/19/20 10:22 PM) Social History Social History Type Response Smoking Status Current every day smoker entered on: 09/15/17 Sex
--- OUTSIDE RECORDS SUMMARY | 2022-06-28 07:01 | XMS_ITS | Continuity of Care Document ---
:1970 Author Organization [facility] Address [address] [place] [id number]- Care Team Providers Name Role Phone Sobia Khalil DO Primary Care Physician [place] [facility] [facility] [place]05[place]20 - 06/06/[address] [address]- [facility] Encounter Diagnosis Back pain (Final) - 06/06/20 Discharge Disposition: A-D/C AMA Attending Physician: Florecita Dean MD Admitting Physician: Florecita Dean MD Referring Physician: Not on Staff, Referring [...] 05/29/20 12:56:00 EDT, Route to Pharmacy Electronically, [facility], 173, cm, 05/29/20 11:31:00 EDT, Height, 141... Start Date: 05/29/20 Stop Date: 07/28/20 Status: OrderedDilaudid 2 mg oral tablet 1 tablet = 2 mg, By Mouth, Every 4 hours, PRN Pain , Moderate, for 14 days, # 84 tablet, 0 Refills, Acute 06/12/20 12:49:00 EDT, 05/29/20 12:49:00 EDT, Tablet, Partial fill upon patient request Start Date: 05/29/20 Stop Date: 06/12/20 Status: Orderedfinasteride 5 mg oral tablet 1 [...] 12:49:00 EDT, Patch Start Date: 05/22/20 Status: OrderedLORazepam 2 mg oral tablet 1 [...] Tablet Start Date: 05/23/20 Status: Orderednystatin topical 239649 u/gm powder 1 application, Topically, 2 times a day, for 30 days, # 30 Gm, 1 Refills, Acute 07/28/20 12:57:00 EST, 05/29/20 12:57:00 EDT, Powder, [facility], 1 application Topically 2 times a day,[id number], 173, cm, 05/29/20 11:31:00 EDT, Height, 141... [...] [Reference Range]: Height 172.72 cm 172.72 cm (06/06/20 4:08 AM) (06/06/20 12:47 AM) Weight 141 kg (06/06/20 12:27 AM) Oxygen Saturation [94-100 %] 96 % 95 % 99 % (06/06/20 4:08 AM) (06/06/20 12:27 AM) (06/05/20 10 :52 PM) Pulse Rate [55-90 bpm] 106 bpm 106 bpm 105 bpm *H* *H* *H* (06/06/20 4:08 AM) (06/06/20 12:27 AM) (06/05/20 10 :52 PM) Blood Pressure [90-138/55-84 160/75 mm Hg 182/80 mm Hg 169 /81 mm Hg mm Hg] *H* *H* *H* (06/06/20 4:08 AM) (06/06/20 12:27 AM) (06/05/20 10 :52 PM) Respiratory Rate [16-30 18 br/min 18 br/min 18 br/mi n br/min] (06/06/20 5:47 AM) (06/06/20 4:08 AM) (06/06/20 3:5 0 AM) Temperature [96.8-100.4 97.9 DegF 98.0 DegF 98.1 Deg F DegF] (06/06/20 4:08 AM) (06/06/20 12:27 AM) (06/05/20 10 :52 PM) Mode of Delivery (Oxygen) Room air Room air Room a ir (06/06/20 4:08 AM) (06/06/20 12:27 AM) (06/05/20 10 :52 PM) Blood pressure sites Arm, right Arm, left Arm, left (06/06/20 4:08 AM) (06/06/20 12:27 AM) (06/05/20 10 :52 PM) Temperature Route Oral Oral Oral (06/06/20 4:08 AM) (06/06/20 12:27 AM) (06/05/20 10 :52 PM) Weight Obtained Via Bed scale (06/06/20 12:27 AM) Social History Social History Type Response Smoking Status Current every day smoker entered on: 09/15/17 Sex
--- OUTSIDE RECORDS SUMMARY | 2022-06-28 07:01 | XMS_ITS | Continuity of Care Document ---
:1970 Author Organization [facility] Address [address] [place] [address]- Care Team Providers Name Role Phone Sobia Khalil DO Primary Care Physician [place] [facility] [place] 08[place] - 09/25/21 [facility] [address], [place] [address] Allergies, Adverse Reactions, Alerts Substance Reaction Severity [...] times a day Start Date: 06/02/21 Status: Orderednabumetone 500 mg [...] 0 Refills, Maintenance, 07/27/21 14:56:00 EST, Solution, [facility], Partial fill upon patient request [...]
--- OUTSIDE RECORDS SUMMARY | 2022-06-28 07:01 | XMS_ITS | Continuity of Care Document ---
:1970 Author Organization Address [address] [place] [id number]- Care Team Providers Name Role Phone Julianabeatriz Sobia HEREDIA Primary Care Physician Encounter [facility] [place] Date(s): 10/25/21 - 11/03/[address] [address] Encounter Diagnosis Vomiting (Final) - 10/25/21 Abdominal pain (Final) - 11/01/21 Discharge Disposition: A-D/C Home Attending Physician: Luciano MELCHOR, Frankie Admitting Physician: Lesli Deutsch MD Referring Physician: Not on Staff, Referring [...] oral tablet 10 mg, Tablet, By Mouth, 11/03/21 9:00:00 EST Start Date: 11/03/21 Stop Date: 11/03/21 Status: CompletedamLODIPine 10 mg oral tablet 1 tablet = 10 mg, By Mouth, Daily, # 30 tablet, 0 Refills, Maintenance, 06/19/20 21:23:00 EDT, Tablet Start Date: 06/19/20 Status: OrderedAspirin Low Dose 81 mg oral delayed release tablet 1 tablet = 81 mg, By Mouth, Daily, # 30 tablet, 0 Refills, Maintenance, 06/19/20 21:23:00 EDT, EC Tablet Start Date: 06/19/20 Status: OrderedAugmentin 500 mg-125 mg oral tablet 1 tablet, By Mouth, Every 12 hours, for 2 days, # 4 tablet, 0 Refills, Acute 11/05/21 12:47:00 EST, 11/03/21 12:47:00 EST, Tablet, [facility], Partial fill upon patient request if the prescription is for a schedule II opioid drug., 172,... Start Date: 11/03/21 Stop Date: 11/05/21 Status: OrderedbuPROPion 300 mg/24 hours (XL) oral tablet, extended release 1 tablet = 300 mg, By Mouth, Daily, Maintenance, 07/06/21 16:29:00 EDT, ER Tablet Start Date: 07/06/21 Status: OrderedDilaudid 2 mg oral tablet 2 mg, Tablet, By Mouth, Every 6 hours, PRN for Pain , Severe, Routine, 11/02/21 8:36:00 EST Start Date: 11/02/21 Stop Date: 11/03/21 Status: Discontinueddocusate-senna 50 mg-8.6 mg oral capsule 1 capsule, By Mouth, 2 times a day before breakfast and dinne, for 14 days, # 28 capsule, 0 Refills,Acute 11/17/21 12:06:00 EST, 11/03/21 12:06:00 EST, Capsule, [facility], Partial fill upon patient request if the prescription is for a... Start Date: 11/03/21 Stop Date: 11/17/21 Status: Orderedfinasteride 5 mg oral tablet 1 tablet = 5 mg, By Mouth, Daily, 0 Refills, Maintenance, 01/26/20 10:51:00 EDT, Tablet Start Date: 01/26/20 Status: Orderedgabapentin 300 mg oral capsule 900 mg, Capsule, By Mouth, 11/03/21 9:00:00 EST Start Date: 11/03/21 Stop Date: 11/03/21 Status: Completedgabapentin 300 mg oral capsule 600 [...] if the prescript... Start Date: 10/05/21 Status: Orderedloratadine 10 mg oral tablet 10 mg, 1, tablet, By Mouth, Daily, Maintenance, 07/06/21 16:33:00 EDT Start Date: 07/06/21 Status: OrderedLORazepam 2 mg oral tablet 1 tablet = 2 mg, By Mouth, 3 times a day, for 7 days, # 21 tablet, 0 Refills, Acute 11/10/21 12:08:00 EST, 11/03/21 12:08:00 EST, Tablet, [facility], Partial fill upon patient request if the prescription is for a schedule II opioid drug.... Start Date: 11/03/21 Stop Date: 11/10/21 Status: OrderedNyamyc 100,000 units/g topical powder 1 application, Topically, 2 times a day, Maintenance, 07/06/21 16:35:00 EDT, Powder Start Date: 07/06/21 Status: Orderedomeprazole 20 mg oral delayed release tablet = 20 mg, By Mouth, Daily, # 14 tablet, 0 Refills, Maintenance, 11/03/21 12:11:00 EST, EC Tablet, [facility], Partial fill upon patient request [...] needed for pain, for 5 days, # 28 tablet, 0 Refills, Acute 11/08/21 12:07:00 EST, 11/03/21 12:07:00 EST, Tablet, [facility], Partial fillupon patient request if the prescription is for a... Start Date: 11/03/21 Stop Date: 11/08/21 Status: OrderedoxyCODONE 5 mg oral tablet 20 mg, Tablet, By Mouth, Every 4 hours for 5 days, PRN for Pain , Moderate, Routine, 10/26/21 6:12:00 EST, Stop date 11/07/21 6:11:00 EST Start Date: 10/26/21 Stop Date: 11/03/21 Status: [id number] oral powder for reconstitution = 17 Gm, By Mouth, Daily, for 14 days, # 255 Gm, 0 Refills, Acute 11/17/21 12:06:00 EST, 11/03/21 12:06:00 EST, [facility], Partial fill upon patient request if the prescription is for a schedule II opioid drug., 17 Gm By Mouth Daily,x14... Start Date: 11/03/21 Stop Date: 11/17/21 Status: Orderedpropranolol 120 mg oral capsule, extended release 1 capsule = 120 mg, By Mouth, Daily, Maintenance, 07/06/21 16:35:00 EDT, CR Capsule Start Date: 07/06/21 Status: Orderedpropranolol 60 mg oral capsule, extended release 120 mg, CR Capsule, By Mouth, 11/03/21 9:00:00 EST Start Date: 11/03/21 Stop Date: 11/03/21 Status: Completedrosuvastatin 40 mg oral tablet 1 [...] 0 Refills, Maintenance, 07/27/21 14:56:00 EST, Solution, [facility], Partial fill upon patient request if [...] for Microbiology Reports Name Date Urine Culture 11/01/21 Microbiology Reports TEST:Urine Culture STATUS:Auth (Verified) BODY SITE: SOURCE:URINE COLLECTED DATE/TIME:11/01/21 1:45 PMUrine Culture SPECIMEN DESCRIPTION : URINE CLEAN CATCH/MIDSTREAM SPECIAL REQUESTS : NONE CULTURE : Mixed bacterial francesco, indicative of urogenital contamination. REPORT STATUS : FINAL 11/03/2021 Vital Signs Most recent to oldest 1 2 3 [Reference Range]: Height 172 cm 172 cm 172 cm (11/03/21 7:39 AM) (11/03/21 12:04 AM) (11/02/21 8: 07 PM) Weight 133.6 kg 133.6 kg (10/27/21 9:35 AM) (10/26/21 10:56 AM) Oxygen Saturation [94-100 %] 100 % 98 % 98 % (11/03/21 7:39 AM) (11/03/21 12:04 AM) (11/02/21 8: 07 PM) Pulse Rate [55-90 bpm] 68 bpm 68 bpm 67 bpm (11/03/21 8:12 AM) (11/03/21 7:39 AM) (11/03/21 12: 04 AM) Body Mass Index [18.5-24.99] 45.16 45.16 *>HHI* *>HHI* (10/27/21 9:35 AM) (10/26/21 10:56 AM) Blood Pressure [90-138/55-84 140/58 mm Hg 140/58 mm Hg 140 /58 mm Hg mm Hg] *H* *H* *H* (11/03/21 8:13 AM) (11/03/21 8:12 AM) (11/03/21 7:3 9 AM) Respiratory Rate [16-30 18 br/min 18 br/min 18 br/mi n br/min] (11/03/21 10:22 AM) (11/03/21 9:25 AM) (11/03/21 9: 12 AM) Temperature [96.8-100.4 98.0 DegF 98.1 DegF 98.0 Deg F DegF] (11/03/21 7:39 AM) (11/03/21 12:04 AM) (11/02/21 8: 07 PM) Mode of Delivery (Oxygen) Room air Room air Room a ir (11/03/21 7:39 AM) (11/03/21 12:04 AM) (11/02/21 8: 07 PM) Blood pressure sites Arm, right Arm, right Arm, left (11/03/21 7:39 AM) (11/03/21 12:04 AM) (11/02/21 8: 07 PM) Temperature Route Oral Oral Oral (11/03/21 7:39 AM) (11/03/21 12:04 AM) (11/02/21 8: 07 PM) Dry Weight 133.6 kg (10/26/21 10:56 AM) Social History Social History Type Response Smoking Status Current every day smoker entered on: 09/15/17 Sex
--- OUTSIDE RECORDS SUMMARY | 2022-06-28 07:01 | XMS_ITS | Continuity of Care Document ---
:1970 Author Organization [facility] Address [address] [place] [address]- Care Team Providers Name Role Phone Geovany AUSTIN, Maria Antonia Primary Care Physician Encounter [facility] Date(s): 02/08/22 - 02/12/[address] [id number] Discharge Disposition: A-Transfer VNA/Home Health Attending Physician: David Moy MD Admitting Physician: Peggy Macias MD Referring [...] Daily in AM, Maintenance, 02/08/22 11:00:00 EDT, [place], ; Start Date: 02/08/22 Status: Orderedgabapentin 300 mg oral capsule 600 mg, 2, capsule, By Mouth, Daily, in afternoon, Maintenance, 07/06/21 16:31:00 EDT Start Date: 07/06/21 Status: Orderedgabapentin 300 mg oral capsule 900 mg, Capsule, By Mouth, 02/12/22 9:00:00 EDT Start Date: 02/12/22 Stop Date: 02/12/22 Status: Completedgabapentin 300 mg oral capsule 900 mg, 3, capsule, By Mouth, 2 times a day, AM + Bedtime, Refills 0, Maintenance, 06/08/21 13:28:00EDT Start Date: 06/08/21 Status: Orderedlamotrigine 25 mg oral tablet 50 mg, 2, tablet, By Mouth, Daily at bedtime, Refills 0, Maintenance, 11/18/21 11:36:00 EST, ; Start Date: 11/18/21 Status: Orderedloratadine 10 mg oral tablet 10 mg, 1, tablet, By Mouth, Daily, Maintenance, 07/06/21 16:33:00 EDT Start Date: 07/06/21 Status: Orderedmorphine 15 mg oral tablet, immediate release 1 tablet = 15 mg, By Mouth, Every 4 hours, PRN for pain, for 7 days, # 42 tablet, 0 Refills, Acute 02/19/22 10:05:00 EDT, 02/12/22 10:05:00 EDT, Tablet, [facility], Partial fill upon patient request if the prescription is for a schedule... Start Date: 02/12/22 Stop Date: 02/19/22 Status: OrderedMorPHINE Immediate Release Tablet 15 mg, Tablet, By Mouth, Every 4 hours, PRN for Pain , Severe, Routine, 02/11/22 10:26:00 EDT Start Date: 02/11/22 Stop Date: 02/13/22 Status: DiscontinuedMultivit Therapeutic/Minerals Tablet 1 tablet, By [...] Refills, Maintenance, 11/03/21 12:11:00 EST, EC Tablet, [facility], Partial fill upon patient request if the prescription is for a schedule II opioid drug., 172, cm, 11/03/21 7:39:00 EST, Height,... Start Date: 11/03/21 Stop Date: 11/17/21 Status: Orderedondansetron 4 mg oral tablet, disintegrating 1 tablet = 4 mg, By Mouth, Every 8 hours, PRN as needed for nausea/vomiting, Maintenance, 02/08/22 11:00:00 EDT, DIS Tablet, ; Start Date: 02/08/22 Status: Orderedoxybutynin 10 mg/24 hr oral tablet, extended release 1 tablet = 10 mg, By Mouth, Daily, 0 Refills, Maintenance, 09/29/21 12:07:00 EST, ER Tablet, ; Start Date: 09/29/21 Status: OrderedOxyCONTIN 30 mg oral tablet, extended release 1 tablet = 30 mg, By Mouth, Every 12 hours, # 14 tablet, 0 Refills, Maintenance, 02/12/22 10:37:00 EDT, ER Tablet, [facility], Partial fill upon patient request if [...] 10:59:00 EDT, ; Start Date: 02/08/22 Status: OrderedVitamin D3 2000 intl units oral [...] for Microbiology Reports Name Date Blood Culture 02/07/22 Microbiology Reports TEST:Blood Culture STATUS:Unauthenticated BODY SITE: SOURCE:Blood COLLECTED DATE/TIME:02/07/22 11:43 PMBlood Culture SPECIMEN DESCRIPTION : BLOOD NO SITE SPECIAL REQUESTS : NONE CULTURE : NO GROWTH 4 DAYS REPORT STATUS : PRELIMINARY REPORT Radiology Reports Exam Date Time Procedure Performing Provider Status 02/09/22 12:07 PM Chest 2 Views Frontal and Lat Sylvie Pyle; Auth (Verified) Notes:(Chest 2 Views Frontal and Lat) Reason For Exam: Fever/Increased White CountRESULT: Chest 2 Views Frontal and Lat Chest 2 Views Frontal and Lat REASON: Fever Increased White Count; Clinical Question(s): Pneumonia / Pneumonia COMPARISON: 02/07/2022 FINDINGS: LINES AND TUBES: None. LUNGS AND PLEURA: Clear lungs. Normal pulmonary vascularity. No pleural effusion. No pneumothorax. HEART, MEDIASTINUM AND BRIGHT: Heart is normal in size. Normal mediastinal and hilar contour. BONES AND SOFT TISSUES: No acute abnormality. IMPRESSION: No evidence of acute abnormality. WSN: [id number] Ordering Physician: Suzy Wan Dictated By: Harsha Land MD Dictated Date/Time: 02/09/22 1:33 pm Reviewed By: Harsha Land MD Signed By: Harsha Land MD Signed Date/Time: 02/09/22 1:33 pm Transcribed By: LESLEE Transcribed Date/Time: 02/09/22 1:32 pm Exam Date Time Procedure Performing Provider Status 02/07/22 11:52 PM Chest Portable Jimena Kan; Auth (Verified) Notes:(Chest Portable) Reason For Exam: CoughRESULT: Chest Portable Chest Portable Hx of Present Illness: Pt from home w L sided abd pain x3 days, chronic back pain and SI. Pt reportsshe can only stand and pivot to commode now d t the pain, unable to walk. Reports she cannot take itanymore. Denies plan for this RN but not forthcoming w information; Reason: Cough; Clinical Question(s): Pleural Effusion COMPARISON: Multiple priors, the most recent 01/25/2022. FINDINGS: Technically limited study due to rotation, limiting evaluation of the left lung. LUNGS AND PLEURA: The lungs are overall clear, except for left retrocardiac region. No right pleural effusion. No pneumothorax. HEART, MEDIASTINUM AND BRIGHT: Rotated film limiting evaluation. BONES AND SOFT TISSUES: No acute abnormality. IMPRESSION: Technically limited study due to rotation limiting evaluation of the left lung. There is opacification of the left retrocardiac region which could be due to technique versus underlying atelectasis/pneumonia or pleural effusion. I have personally reviewed the images and I agree with this report. WSN: [id number] Ordering Physician: Antoni Valentino Dictated By: Ronny[Radiology] Heidi MELCHOR Dictated Date/Time: 02/08/22 8:30 am Reviewed By: Savanna Carlisle MD Signed By: Savanna Carlisle MD Signed Date/Time: 02/08/22 8:35 am Transcribed By: LESLEE Transcribed Date/Time: 02/08/22 7:42 am Vital Signs Most recent to oldest 1 2 3 [Reference Range]: Height 172 cm 172 cm 172 cm (02/10/22 6:16 PM) (02/10/22 8:03 AM) (02/09/22 11: 33 PM) Weight 129.5 kg (02/09/22 9:00 AM) Oxygen Saturation [94-100 %] 94 % 97 % 100 % (02/12/22 7:00 AM) (02/12/22 12:00 AM) (02/11/22 7: 00 PM) Pulse Rate [55-90 bpm] 101 bpm 98 bpm 98 bpm *H* *H* *H* (02/12/22 7:00 AM) (02/12/22 12:00 AM) (02/11/22 7: 00 PM) Body Mass Index [18.5-24.99] 43.77 *>HHI* (02/09/22 9:00 AM) Blood Pressure [90-138/55-84 142/74 mm Hg 139/53 mm Hg 138 /62 mm Hg mm Hg] *H* *H* (02/11/22 7:00 PM ) (02/12/22 7:00 AM) (02/12/22 12:00 AM) Respiratory Rate [16-30 18 br/min 18 br/min 18 br/mi n br/min] (02/12/22 1:00 PM) (02/12/22 10:00 AM) (02/12/22 9: 58 AM) Temperature [96.8-100.4 DegF] 97.9 DegF 98.1 DegF 98 .1 DegF (02/12/22 7:00 AM) (02/12/22 12:00 AM) (02/11/22 7: 00 PM) Liters per Minute 6 L/min (02/10/22 4:45 PM) Mode of Delivery (Oxygen) Room air Room air Room a ir (02/12/22 7:00 AM) (02/12/22 12:00 AM) (02/11/22 7: 00 PM) Blood pressure sites Arm, left Arm, left Arm, left (02/12/22 7:00 AM) (02/12/22 12:00 AM) (02/11/22 7: 00 PM) Temperature Route Oral Oral Oral (02/12/22 7:00 AM) (02/12/22 12:00 AM) (02/11/22 7: 00 PM) Dry Weight 129.5 kg (02/09/22 9:00 AM) Weight Obtained Via Bed scale (02/09/22 9:00 AM) Dry Weight Obtained Via Bed scale (02/09/22 9:00 AM) Social History Social History Type Response Smoking Status Current every day smoker entered on: 09/15/17 Sex
--- OUTSIDE RECORDS SUMMARY | 2022-06-28 07:02 | XMS_ITS | Continuity of Care Document ---
:1970 Author Organization [facility] Address [address] [place] [id number]- Care Team Providers Name Role Phone Jonoanupama Sobia HEREDIA Primary Care Physician [place] [facility] [place] 08/14/[place] - 08/22/[address] [address]- Encounter Diagnosis Back pain (Final) - 08/20/21 Discharge Disposition: A-Transfer VNA/Home Health Attending Physician: Robinson Degroot MD, Tremayne Wall Admitting Physician: Sobeida MELCHOR, Aviva Kim Referring Physician: Not on Staff, Referring MD [...] oral tablet 10 mg, Tablet, By Mouth, 08/22/21 9:00:00 EST Start Date: 08/22/21 Stop Date: 08/22/21 Status: CompletedamLODIPine 10 mg oral tablet 1 [...] days, # 42 tablet, 0 Refills, Acute 08/29/21 9:37:00 EST, 08/22/21 9:37:00 EST, Tablet, [facility], Partial fill upon patient request if the prescription is for a schedule II... Start Date: 08/22/21 Stop Date: 08/29/21 Status: OrderedoxyCODONE 5 mg oral tablet 15 mg, Tablet, By Mouth, Every 4 hours, Hold for: somnolence or RR < 12, PRN for Pain , Moderate,Routine, 08/14/21 14:05:00 EST Start Date: 08/14/21 Stop Date: 08/23/21 Status: DiscontinuedOxyCONTIN 20 mg oral tablet, extended [...] release 120 mg, CR Capsule, By Mouth, 08/22/21 9:00:00 EST Start Date: 08/22/21 Stop Date: 08/22/21 Status: Completedrosuvastatin 40 mg oral tablet 1 tablet = 40 mg, By Mouth, Daily, # 30 tablet, 0 Refills, Maintenance, 06/19/20 21:23:00 EDT, Tablet Start Date: 06/19/20 Status: OrderedTresiba FlexTouch 100 units/mL subcutaneous solution = 80 units, Subcutaneous Injection, Daily, # 10 mL, 0 Refills, Maintenance, 07/27/21 14:56:00 EST, Solution, [facility], Partial fill upon patient request [...] Status Informant Cellulitis(Confirmed) Active Depressive disorder(Confirmed) Active Severe obesity(Confirmed) Active Tobacco dependence syndrome(Confirmed) Active Urinary incontinence(Confirmed) Active Results Orders for Microbiology Reports Name Date Blood Culture 08/14/21 Blood Culture #2 08/14/21 Microbiology Reports TEST:Blood Culture, Second Order STATUS:Auth (Verified) BODY SITE: SOURCE:Blood COLLECTED DATE/TIME:08/14/21 4:28 PMBlood Culture, Second Order SPECIMEN DESCRIPTION : BLOOD RT ARM SPECIAL REQUESTS : NONE CULTURE : NO GROWTH 5 DAYS. REPORT STATUS : FINAL 08/19/2021TEST:Blood Culture STATUS:Auth (Verified) BODY SITE: SOURCE:Blood COLLECTED DATE/TIME:08/14/21 4:19 PMBlood Culture SPECIMEN DESCRIPTION : BLOOD LT ARM SPECIAL REQUESTS : NONE CULTURE : NO GROWTH 5 DAYS. REPORT STATUS : FINAL 08/19/2021adiology Reports Exam Date Time Procedure Performing Provider Status 08/14/21 7:45 AM XR Hip w/Pelvis 2-3 View Right Jaimee Kearneysilvia daphney; Auth (Verified) Notes:(XR Hip w/Pelvis 2-3 View Right) Reason For Exam: With Pain;TraumaRESULT: XR Hip w/Pelvis 2-3 View Right XR Hip w/Pelvis 2-3 View Right Hx of Present Illness: Back pain; Reason: Trauma; With Pain; Clinical Question(s): Fracture COMPARISON: None. FINDINGS: There is no fracture or dislocation. Bone mineralization is normal. Normal hips and sacroiliac joints. Normal soft tissues. IMPRESSION: Normal. WSN: [id number] Ordering Physician: Nancy De Leon Dictated By: Peter Alex MD Dictated Date/Time: 08/14/21 8:04 am Reviewed By: Peter Alex MD Signed By: Peter Alex MD Signed Date/Time: 08/14/21 8:04 am Transcribed By: LESLEE Transcribed Date/Time: 08/14/21 8:03 am Vital Signs Most recent to oldest 1 2 3 [Reference Range]: Height 174 cm 174 cm 174 cm (08/22/21 4:49 AM) (08/21/21 8:10 PM) (08/21/21 2:0 7 PM) Weight 144.3 kg (08/14/21 4:18 PM) Oxygen Saturation [94-100 %] 98 % 92 % 96 % (08/22/21 4:49 AM) *L* (08/21/21 5:00 AM) (08/21/21 2:07 PM) Pulse Rate [55-90 bpm] 80 bpm 80 bpm 78 bpm (08/22/21 8:04 AM) (08/22/21 4:49 AM) (08/21/21 2:0 7 PM) Body Mass Index [18.5-24.99] 47.66 *>HHI* (08/14/21 4:18 PM) Blood Pressure [90-138/55-84 138/50 mm Hg 128/50 mm Hg 127 /64 mm Hg mm Hg] (08/22/21 8:20 AM) (08/22/21 8:04 AM) (08/22/21 4:4 9 AM) Respiratory Rate [16-30 18 br/min 18 br/min 18 br/mi n br/min] (08/22/21 3:03 PM) (08/22/21 1:21 PM) (08/22/21 9:3 0 AM) Temperature [96.8-100.4 DegF] 98.5 DegF 98.4 DegF 98 .0 DegF (08/22/21 4:49 AM) (08/21/21 2:07 PM) (08/21/21 5:0 0 AM) Mode of Delivery (Oxygen) Room air Room air Room a ir (08/22/21 4:49 AM) (08/21/21 8:10 PM) (08/21/21 2:0 7 PM) Blood pressure sites Arm, right Arm, right Arm, right (08/22/21 4:49 AM) (08/21/21 8:10 PM) (08/21/21 2:0 7 PM) Temperature Route Oral Oral Oral (08/22/21 4:49 AM) (08/21/21 8:10 PM) (08/21/21 2:0 7 PM) Dry Weight 144.3 kg (08/14/21 4:18 PM) Social History Social History Type Response Smoking Status Current every day smoker entered on: 09/15/17 Sex Female
--- OUTSIDE RECORDS SUMMARY | 2022-06-28 07:02 | XMS_ITS | Continuity of Care Document ---
:1970 Author Organization [facility] Address [address] [place] [id number]- Care Team Providers Name Role Phone Julianabeatriz Sobia HEREDIA Primary Care Physician Encounter [facility] Date(s): 04/11/22 - 04/18/[address] [address] Encounter Diagnosis Back pain (Final) - 04/11/22 Diabetes (Final) - 04/11/22 Discharge Disposition: A-D/C Home Attending Physician: Michelle MELCHOR, Maria Isabel Admitting Physician: Maged Jefferson MD Referring Physician: Not on Staff, Referring MD Allergies, Adverse Reactions, Alerts Substance Reaction Severity Status acetaminophen extremely itchy Active shellfish1 Active Tylenol Active Fish2 Active MetFORMIN (Eqv-Glumetza) Active 1patient reports itchy/tingling [id number] reports itchy/tingling throat Immunizations Given and Recorded [...] a schedule II opioid drMaira.. Start Date: 04/18/22 Status: OrderedAspirin Low Dose [...] Daily in AM, Maintenance, 02/08/22 11:00:00 EDT, [place], ; Start Date: 02/08/22 Status: Orderedgabapentin 300 mg oral capsule 600 mg, 2, capsule, By Mouth, Daily, in the afternoon, Maintenance, 04/12/22 13:04:00 EDT, ; Start Date: 04/12/22 Status: Orderedgabapentin 300 mg oral capsule 600 mg, Capsule, By Mouth, 04/18/22 11:00:00 EDT Start Date: 04/18/22 Stop Date: 04/18/22 Status: Completedgabapentin 300 mg oral capsule 3 [...] EDT, ; Start Date: 02/08/22 Status: OrderedNystop [id number] u/gm powder 1 application, Topically, 2 times a day, Maintenance, 04/12/22 13:06:00 EDT, Powder, ; Start Date: 04/12/22 Status: Orderedomeprazole 20 mg oral enteric coated capsule 1 capsule = 20 mg, By Mouth, Daily, Maintenance, 04/12/22 13:07:00 EDT, EC Capsule, ; Start Date: 04/12/22 Status: Orderedoxybutynin 10 mg/24 hr oral tablet, extended release 1 tablet = 10 mg, By Mouth, Daily, Maintenance, 04/12/22 13:06:00 EDT, ER Tablet, ; Start Date: 04/12/22 Status: OrderedoxyCODONE 20 mg oral tablet 1 tablet = 20 mg, By Mouth, Every 4 hours, PRN as needed for pain, 0 Refills, Maintenance, 03/15/22 10:43:00 EDT, Tablet, ; Start Date: 03/15/22 Status: OrderedOxyCONTIN 10 mg oral tablet, extended release 30 mg, ER Tablet, By Mouth, 04/18/22 11:00:00 EDT Start Date: 04/18/22 Stop Date: 04/18/22 Status: CompletedOxyCONTIN 30 mg oral tablet, extended release 1 tablet = 30 mg, By Mouth, Every 12 hours, # 14 tablet, 0 Refills, Maintenance, 02/12/22 10:37:00 EDT, ER Tablet, [facility], Partial fill upon patient [...] EDT, CR Capsule Start Date: 07/06/21 Status: OrderedProtonix 40 mg oral delayed release tablet 1 [...] Chew Tablet, ; Start Date: 02/08/22 Status: Orderedsulfamethoxazole-trimethoprim 800 mg-160 mg oral tablet 0.5 tablet, By Mouth, Daily, Maintenance, 04/12/22 13:06:00 EDT, ; Start Date: 04/12/22 Status: Orderedtamsulosin 0.4 mg oral capsule 0.4 [...] Exam Date Time Procedure Performing Provider Status 04/16/22 10:25 AM Abdomen AP Luiza Motley; Rhonda (Verified) Notes:(Abdomen AP) Reason For Exam: ConstipationRESULT: XR Abdomen AP XR Abdomen AP 2 view INDICATION/CLINICAL QUESTION: Reason: Constipation; Clinical Question(s): Obstruction COMPARISON: None FINDINGS: 04/14/2022 exam limited by body habitus. There is moderate amount of fecal material throughout the colon. No definite dilation. No evidence of obstruction or pneumoperitoneum. Fecal burden is similar tostudy from 2 days prior. No abnormal abdominal or pelvic calcifications. No acute osseous findings. IMPRESSION: Moderate fecal retention, similar to prior. No evidence of obstruction. WSN: [id number] Ordering Physician: Maria Isabel Martinez Dictated By: Flavia Brito MD Dictated Date/Time: 04/16/22 11:16 a Reviewed By: Flavia Brito MD Signed By: Flavia Brito MD Signed Date/Time: 04/16/22 11:16 am Transcribed By: LESLEE Transcribed Date/Time: 04/16/22 11:14 am Exam Date Time Procedure Performing Provider Status 04/14/22 4:25 PM Abdomen AP Cruz March; Rhonda (Verified ) Notes:(Abdomen AP) Reason For Exam: ConstipationRESULT: XR Abdomen AP XR Abdomen AP 2 view INDICATION/CLINICAL QUESTION: Reason: Constipation; Clinical Question(s): Obstruction COMPARISON: 01/11/2022 FINDINGS: Stool throughout the colon. Borderline colonic distention with transverse and ascending colon measuring between 6 and 7 cm. No small bowel distention. IMPRESSION: Borderline colonic distention may be due to mild ileus. Stool is noted throughout the colon. No small bowel distention. Overall bowel gas pattern is similar for 01/11/2022 WSN: [id number] Ordering Physician: Maria Isabel Martinez Dictated By: Peter Ramachandran MD Dictated Date/Time: 04/14/22 4:40 pm Reviewed By: Peter Ramachandran MD Signed By: Peter Ramachandran MD Signed Date/Time: 04/14/22 4:40 pm Transcribed By: LESLEE Transcribed Date/Time: 04/14/22 4:38 pm Vital Signs Most recent to oldest 1 2 3 [Reference Range]: Height 173 cm 173 cm 173 cm (04/18/22 9:22 AM) (04/18/22 7:40 AM) (04/17/22 11:01 PM) Weight 119.4 kg (04/11/22 4:30 PM) Oxygen Saturation [94-100 %] 97 % 100 % 100 % (04/18/22 9:22 AM) (04/18/22 7:40 AM) (04/17/22 11:01 PM) Pulse Rate [55-90 bpm] 76 bpm 72 bpm 69 bpm (04/18/22 9:22 AM) (04/18/22 7:40 AM) (04/17/22 11:01 PM) Body Mass Index [18.5-24.99] 39.89 *>HHI* (04/11/22 4:30 PM) Blood Pressure [90-138/55-84 144/67 mm Hg 119/56 mm Hg 135 /61 mm Hg mm Hg] *H* (04/18/22 7:40 AM) (04/17/22 11:01 PM) (04/18/22 9:22 AM) Respiratory Rate [16-30 20 br/min 20 br/min 18 br/mi n br/min] (04/18/22 10:31 AM) (04/18/22 10:31 AM) (04/18/22 9:22 AM) Temperature [96.8-100.4 DegF] 98.5 DegF 97.8 DegF 98 .0 DegF (04/18/22 9:22 AM) (04/18/22 7:40 AM) (04/17/22 11:01 PM) Liters per Minute 6 L/min (04/11/22 3:15 PM) Mode of Delivery (Oxygen) Room air Room air Room a ir (04/18/22 9:22 AM) (04/18/22 7:40 AM) (04/17/22 11:01 PM) Blood pressure sites Arm, right Arm, right Arm, right (04/18/22 9:22 AM) (04/18/22 7:40 AM) (04/17/22 11:01 PM) Temperature Route Oral Oral Oral (04/18/22 9:22 AM) (04/18/22 7:40 AM) (04/17/22 11:01 PM) Dry Weight 119 kg (04/11/22 4:30 PM) Social History Social History Type Response Smoking Status Current every day smoker entered on: 09/15/17 Sex
--- OUTSIDE RECORDS SUMMARY | 2022-06-28 07:02 | XMS_ITS | Continuity of Care Document ---
:1970 Author Organization [facility] Address [address] [place] [phone]- Care Team Providers Name Role Phone Simran Sobai HEREDIA Primary Care Physician Encounter [facility] [place] Date(s): 06/12/22 - 06/23/[address] [address] Discharge Disposition: A-D/C Home Attending Physician: Luzmaria Marcelino MD Admitting Physician: Lesli Deutsch MD Referring Physician: Not on Staff, Referring MD Allergies, Adverse Reactions, Alerts Substance Reaction Severity Status acetaminophen extremely itchy Active shellfish1 Active Tylenol Active Fish2 Active MetFORMIN (Eqv-Glumetza) Active 1patient reports itchy/tingling [id number] reports itchy/tingling throat Immunizations Given and Recorded [...] oral tablet 10 mg, Tablet, By Mouth, 06/23/22 9:00:00 EDT Start Date: 06/23/22 Stop Date: 06/23/22 Status: CompletedamLODIPine 10 mg oral tablet 10 mg, 1, tablet, By Mouth, Daily, DOSE CHANGE TO 10MG DAILY, # 30 tablet, Refills 0, Tot. Refills 0, Maintenance, 06/23/22 15:25:00 EDT, Route to Pharmacy Electronically, [id number], Partial fill upon patient request if the prescription i... Start Date: 06/23/22 Stop Date: 07/23/22 Status: OrderedAspirin Low Dose 81 mg oral delayed release tablet 1 tablet = 81 mg, By Mouth, Daily, 0 Refills, Maintenance, 06/19/20 21:23:00 EDT, EC Tablet Start Date: 06/19/20 Status: OrderedAtivan 2 mg oral tablet 1 tablet = 2 mg, By Mouth, 3 times a day, 0 Refills, Maintenance, 11/18/21 11:34:00 EST, Tablet Start Date: 11/18/21 Status: OrderedbuPROPion 450 mg/24 hours (XL) oral tablet, extended release 1 tablet = 450 mg, By Mouth, Every 24 hours, DOSE CHANGE TO 450MG DAILY, # 30 tablet, 0 Refills, Maintenance, 06/23/22 15:23:00 EDT, ER Tablet, [id number], Partial fill upon patient request if the prescription is for a schedule II opioid d... Start Date: 06/23/22 Stop Date: 07/23/22 Status: OrderedCulturelle [facility] and Wellness oral capsule [...] oral capsule 600 mg, Capsule, By Mouth, 06/23/22 13:00:00 EDT Start Date: 06/23/22 Stop Date: 06/23/22 Status: Completedgabapentin 300 mg oral capsule 3 capsules, By Mouth, 2 times a day, am & at bed, Refills 0, Maintenance, 06/08/21 13:28:00 EDT Start Date: 06/08/21 Status: Orderedlamotrigine 25 mg oral tablet 50 mg, 2, tablet, By Mouth, 2 times a day, DOSE CHANGE TO 50MG BID, # 120 tablet, Refills 0, Tot. Refills 0, Maintenance, 06/23/22 15:30:00 EDT, Route to Pharmacy Electronically, [id number], Partial fill upon patient request if the prescri... Start Date: 06/23/22 Status: Orderedloratadine 10 mg oral tablet 10 mg, 1, tablet, By Mouth, Daily, Maintenance, 07/06/21 16:33:00 EDT Start Date: 07/06/21 Status: Orderedmetoclopramide 10 mg oral tablet 1 tablet = 10 mg, By Mouth, 2 times a day, PRN Nausea, Maintenance, 04/12/22 13:07:00 EDT, ; Start Date: 04/12/22 Status: OrderedMiraLax oral powder for reconstitution = 17 Gm, By Mouth, Daily, PRN Constipation, dissolve in water before taking, # 255 Gm, 0 Refills, Maintenance, 06/23/22 8:09:00 EDT, REC Powder, Partial fill upon patient request if the prescription isfor a schedule II opioid drug. Start Date: 06/23/22 Status: OrderedMultivit Therapeutic/Minerals Tablet 1 tablet, By Mouth, Daily, 0 Refills, Maintenance, 11/18/21 11:34:00 EST, Tablet, ; Start Date: 11/18/21 Status: OrderedNovoLOG FlexPen 100 units/mL injectable solution 4-12 UNITS, Subcutaneous Injection, 3 times a day before meals, 150-199= 4 units 200-249= 6 units 250-299= 8 units 300-349= 10 units 350-399= 12 units Call <70 or >400, Maintenance, 02/08/22 10:59:00 EDT, ; Start Date: 02/08/22 Status: OrderedNystop 527339 u/gm powder 1 application, Topically, 2 times a day, Maintenance, 04/12/22 13:06:00 EDT, Powder, ; Start Date: 04/12/22 Status: Orderedoxybutynin 10 mg/24 hr oral tablet, extended release 1 tablet = 10 mg, By Mouth, Daily, # 30 tablet, 0 Refills, Maintenance, 06/07/22 14:38:00 EDT, ER Tablet, Partial fill upon patient request if the prescription is for a schedule II opioid drug. Start Date: 06/07/22 Status: OrderedoxyCODONE 20 mg oral tablet 1 tablet = 20 mg, By Mouth, Every 4 hours, PRN as needed for pain, 0 Refills, Maintenance, 05/29/22 12:05:00 EDT, Tablet, Partial fill upon patient request if the prescription is for a schedule II opioid drug. Start Date: 05/29/22 Status: OrderedoxyCODONE 40 mg oral tablet, extended release 40 mg, ER Tablet, By Mouth, 06/23/22 11:00:00 EDT Start Date: 06/23/22 Stop Date: 06/23/22 Status: CompletedoxyCODONE 5 mg oral tablet 20 mg, Tablet, By Mouth, Every 4 hours, PRN for Pain , Mild, Routine, 06/12/22 19:32:00 EDT Start Date: 06/12/22 Stop Date: 06/24/22 Status: DiscontinuedOxyCONTIN 40 mg oral tablet, extended release 40 mg, 1, tablet, By Mouth, Every 12 hours, Refills 0, Tot. Refills 0, Maintenance, 05/29/22 12:05:00 EDT, Partial fill upon patient request if the prescription is for a schedule II opioid drug. Start Date: 05/29/22 Status: Orderedpantoprazole 40 mg oral delayed release tablet 1 tablet = 40 mg, By Mouth, Daily, # 30 tablet, 0 Refills, Maintenance, 06/07/22 14:38:00 EDT, EC Tablet Start Date: 06/07/22 Status: OrderedProAir HFA 90 mcg/inh inhalation aerosol [...] release 120 mg, CR Capsule, By Mouth, 06/23/22 9:00:00 EDT Start Date: 06/23/22 Stop Date: 06/23/22 Status: Completedrosuvastatin 40 mg oral tablet 1 tablet = 40 mg, By Mouth, Daily, 0 Refills, Maintenance, 06/19/20 21:23:00 EDT, Tablet Start Date: 06/19/20 Status: Orderedsimethicone 125 mg oral tablet, chewable 1 tablet = 125 mg, Chew, 4 times a day, PRN as needed, Maintenance, 02/08/22 11:00:00 EDT, Chew Tablet, ; Start Date: 02/08/22 Status: Orderedtamsulosin 0.4 mg oral capsule 0.4 mg, 1, capsule, By Mouth, Daily, # 90 capsule, Refills 0, Maintenance, 06/23/22 8:05:00 EDT, Partial fill upon patient request if the prescription is for a schedule II opioid drug. Start Date: 06/23/22 Status: OrderedTresiba FlexTouch 100 units/mL subcutaneous solution [...] Date: 05/23/20 Status: Ordered Problem List Condition Confirmation Course Effective Dates Status Health I nformant Status Allergic rhinitis Confirmed Active Anxiety disorder Confirmed Active Weakness Confirmed Active Bipolar illness Confirmed Active Cellulitis Confirmed Active Chronic back pain Confirmed Active CKD (chronic kidney Confirmed Active disease) Depressive disorder Confirmed Active FSGS (focal segmental Confirmed Active glomerulosclerosis) GERD Confirmed Active (gastroesophageal reflux disease) Hyperlipidemia Confirmed Active Hypertension Confirmed Active Insomnia Confirmed Active Insulin dependent Confirmed Active type 2 diabetes mellitus Iron deficiency Confirmed Active Anxiety and Confirmed Active depression Morbid obesity Confirmed Active Overactive bladder Confirmed Active Severe obesity Confirmed Active Tobacco dependence Confirmed Active syndrome Urinary incontinence Confirmed Active Vitamin D deficiency Confirmed Active Results Orders for Microbiology Reports Name Date Urine Culture (URINE CULTURE) 06/14/22 Microbiology Reports TEST:Urine Culture STATUS:Auth (Verified) BODY SITE: SOURCE:URINE COLLECTED DATE/TIME:06/14/22 8:40 AMUrine Culture SPECIMEN DESCRIPTION : URINE SPECIAL REQUESTS : NONE CULTURE : >100,000 COL/ML ESCHERICHIA COLI This isolate was identified using Maldi-TOF system These AST results were performed on the Fiksu ID and AST system REPORT STATUS : FINAL 06/16/2022 ORGANISM >100,000 COL/ML ESCHERICHIA COLI This isolate was identified using Maldi-TOF system These AST results were performed on the Fiksu ID and AST system METHOD MIN. INHIB. CONC. (MCG/ML) AMPICILLIN SUSCEPTIBLE AMPICILLIN/SULBACTAM SUSCEPTIBLE AMOXICILLIN/CLAVULAN SUSCEPTIBLE CEFAZOLIN SUSCEPTIBLE CEFEPIME SUSCEPTIBLE CEFTRIAXONE SUSCEPTIBLE CIPROFLOXACIN SUSCEPTIBLE ERTAPENEM SUSCEPTIBLE GENTAMICIN SUSCEPTIBLE LEVOFLOXACIN SUSCEPTIBLE MEROPENEM SUSCEPTIBLE NITROFURANTOIN SUSCEPTIBLE PIPERACILLIN/TAZOBAC SUSCEPTIBLE TRIMETH/SULFAMETHOX SUSCEPTIBLE TETRACYCLINE SUSCEPTIBLE Vital Signs Most recent to oldest 1 2 3 [Reference Range]: Oxygen Saturation [94-100 %] 92 % 99 % 95 % *L* (06/22/22 10:08 PM) (06/22/22 11:0 0 AM) (06/23/22 5:40 AM) Pulse Rate [55-90 bpm] 68 bpm 70 bpm 67 bpm (06/23/22 10:06 AM) (06/23/22 5:40 AM) (06/22/22 10 :08 PM) Blood Pressure [90-138/55-84 116/97 mm Hg 116/97 mm Hg 130 /55 mm Hg mm Hg] (06/23/22 10:07 AM) (06/23/22 10:06 AM) (06/23/22 5 :40 AM) Respiratory Rate [16-30 20 br/min 20 br/min 20 br/mi n br/min] (06/23/22 2:20 PM) (06/23/22 1:47 PM) (06/23/22 1:4 7 PM) Temperature [96.8-100.4 97.8 DegF 97.7 DegF 97.8 Deg F DegF] (06/23/22 5:40 AM) (06/22/22 10:08 PM) (06/22/22 11 :00 AM) Mode of Delivery (Oxygen) Room air Room air Room a ir (06/22/22 10:08 PM) (06/22/22 11:00 AM) (06/22/22 6 :44 AM) Blood pressure sites Arm, right Arm, right Arm, right (06/23/22 5:40 AM) (06/22/22 10:08 PM) (06/22/22 6: 44 AM) Temperature Route Oral Oral Oral (06/23/22 5:40 AM) (06/22/22 10:08 PM) (06/22/22 11 :00 AM) Social History Social History Type Response Smoking Status Never (less than 100 in life time) entered on: 05/13/22 Sex Patient Care team information PersonnelName: Sobia Khalil DO Address: Address: [address] [place] [address]
--- OUTSIDE RECORDS SUMMARY | 2022-06-28 07:02 | XMS_ITS | Continuity of Care Document ---
:1970 Author Organization [facility] Address [address] [place] [address]- Care Team Providers Name Role Phone Geovany AUSTIN, Maria Antonia Primary Care Physician Encounter [facility] [place] Date(s): 01/04/22 - 01/04/[address] [address]- Encounter Diagnosis Abdominal pain (Final) - 01/04/22 Discharge Disposition: A-D/C Home Attending Physician: Reno Argueta MD Admitting Physician: Reno Argueta MD Referring Physician: Not on Staff, Referring [...] Refills, Maintenance, 11/03/21 12:11:00 EST, EC Tablet, [facility], Partial fill upon patient [...] Refills, Maintenance, 12/03/21 15:53:00 EDT, ER Tablet, [facility], Partial fill upon patient request if the prescription is for a schedule II opioid drug., 172, aleida, 11/18/21 8:12... Start Date: 12/03/21 Stop Date: [...] 0 Refills, Maintenance, 12/03/21 11:50:00 EDT, Solution, [facility], Partial fill upon patient request [...] [Reference Range]: Height 173 cm 173 cm (01/04/22 8:18 AM) (01/04/22 3:17 AM) Oxygen Saturation [94-100 98 % 96 % 96 % %] (01/04/22 8:18 AM) (01/04/22 6:08 AM) (01/04/22 4:4 5 AM) Pulse Rate [55-90 bpm] 106 bpm 84 bpm 86 bpm *H* (01/04/22 6:08 AM) (01/04/22 4:45 AM) (01/04/22 8:18 AM) Blood Pressure 163/74 mm Hg 164/87 mm Hg 187/100 mm Hg [90-138/55-84 mm Hg] *H* *H* *H* (01/04/22 8:18 AM) (01/04/22 6:08 AM) (01/04/22 4:4 5 AM) Respiratory Rate [16-30 19 br/min 20 br/min 20 br/mi n br/min] (01/04/22 8:18 AM) (01/04/22 6:08 AM) (01/04/22 4:4 5 AM) Temperature [96.8-100.4 98.2 DegF 98.3 DegF DegF] (01/04/22 8:18 AM) (01/04/22 3:17 AM) Liters per Minute 0 L/min (01/04/22 8:18 AM) Mode of Delivery (Oxygen) Room air Room air Room a ir (01/04/22 8:18 AM) (01/04/22 6:08 AM) (01/04/22 4:4 5 AM) Blood pressure sites Arm, right Arm, right Arm, right (01/04/22 8:18 AM) (01/04/22 6:08 AM) (01/04/22 4:4 5 AM) Temperature Route Oral Oral (01/04/22 8:18 AM) (01/04/22 3:17 AM) Dry Weight 127.3 kg 127.3 kg (01/04/22 8:18 AM) (01/04/22 3:17 AM) Dry Weight Obtained Via Patient/family stated (01/04/22 3:17 AM) Social History Social History Type Response Smoking Status Current every day smoker entered on: 09/15/17 Sex
--- OUTSIDE RECORDS SUMMARY | 2022-06-28 07:02 | XMS_ITS | Continuity of Care Document ---
:1970 Author Organization [facility] Address [address] [place] [phone]- Care Team Providers Name Role Phone Geovany AUSTIN, Maria Antonia Primary Care Physician [place] [facility] [place]/14/22 - 03/18/[address] [id number] Encounter Diagnosis Ingestion of toxic substance (Final) - 03/14/22 Discharge Disposition: A-D/C Home Attending Physician: Denise Campbell MD Admitting Physician: Demetrius Aldana MD Referring Physician: Not on Staff, Referring MD Allergies, Adverse Reactions, Alerts Substance Reaction Severity Status acetaminophen extremely itchy Active shellfish1 Active Fish2 Active MetFORMIN (Eqv-Glumetza) Active Tylenol Active 1patient reports itchy/tingling [id number] reports itchy/tingling throat Immunizations Given and Recorded [...] oral tablet 10 mg, Tablet, By Mouth, 03/18/22 9:00:00 EDT Start Date: 03/18/22 Stop Date: 03/18/22 Status: CompletedAspirin Low Dose 81 mg oral [...] EDT, ER Tablet Start Date: 07/06/21 Status: OrderedCultSportXastHandshake Health and Wellness oral capsule 1 capsule, By Mouth, 2 times a day, Maintenance, 02/08/22 10:59:00 EDT, ; Start Date: 02/08/22 Status: OrderedDilaudid Inj 1 mg, Injection, IV Push Slowly, Every 4 hours, PRN for Pain , Severe, Routine, 03/15/22 11:30:00 EDT Start Date: 03/15/22 Stop Date: 03/18/22 Status: DiscontinuedDocusate/Senna Tablet 1 tablet, By Mouth, [...] Daily in AM, Maintenance, 02/08/22 11:00:00 EDT, [place], ; Start Date: 02/08/22 Status: Orderedgabapentin 300 [...] Refills, Maintenance, 11/03/21 12:11:00 EST, EC Tablet, [facility], Partial fill upon patient request [...] II opioid drug. Start Date: 03/15/22 Status: OrderedoxyCODONE 5 mg oral tablet 20 mg, Tablet, By Mouth, Every 4 hours, PRN for Other, Routine, 03/15/22 11:29:00 EDT Start Date: 03/15/22 Stop Date: 03/18/22 Status: DiscontinuedOxyCONTIN 10 mg oral tablet, extended release 30 mg, ER Tablet, By Mouth, 03/18/22 10:00:00 EDT Start Date: 03/18/22 Stop Date: 03/18/22 Status: CompletedOxyCONTIN 30 mg oral tablet, extended release 1 tablet = 30 mg, By Mouth, Every 12 hours, # 14 tablet, 0 Refills, Maintenance, 02/12/22 10:37:00 EDT, ER Tablet, [facility], Partial fill upon patient request [...] release 120 mg, CR Capsule, By Mouth, 03/18/22 9:00:00 EDT Start Date: 03/18/22 Stop Date: 03/18/22 Status: Completedrosuvastatin 40 mg oral tablet 1 [...] Height 173 cm 173 cm 173 cm (03/17/22 8:28 PM) (03/17/22 5:13 AM) (03/16/22 8:4 9 PM) Weight 121 kg (03/15/22 5:39 PM) Oxygen Saturation [94-100 %] 99 % 98 % 98 % (03/17/22 8:28 PM) (03/17/22 2:00 PM) (03/17/22 5:1 3 AM) Pulse Rate [55-90 bpm] 66 bpm 65 bpm 66 bpm (03/18/22 7:52 AM) (03/17/22 8:28 PM) (03/17/22 2:00 PM) Body Mass Index [18.5-24.99] 40.43 *>HHI* (03/15/22 5:39 PM) Blood Pressure [90-138/55-84 mm 135/56 mm Hg 135/56 mm Hg 143/60 mm Hg Hg] (03/18/22 7:52 AM) (03/18/22 7:52 AM) *H* (03/17/22 8:28 PM ) Respiratory Rate [16-30 br/min] 18 br/min 18 br/min 18 br/min (03/18/22 10:51 AM) (03/18/22 10:30 AM) (03/18/22 10:0 6 AM) Temperature [96.8-100.4 DegF] 98 DegF 97.9 DegF 98 .2 DegF (03/17/22 8:28 PM) (03/17/22 2:00 PM) (03/17/22 5:1 3 AM) Mode of Delivery (Oxygen) Room air Room air Room a ir (03/17/22 8:28 PM) (03/17/22 2:00 PM) (03/17/22 5:1 3 AM) Blood pressure sites Arm, right Arm, right Arm, left (03/17/22 8:28 PM) (03/17/22 2:00 PM) (03/17/22 5:1 3 AM) Temperature Route Oral Oral Oral (03/17/22 8:28 PM) (03/17/22 2:00 PM) (03/17/22 5:1 3 AM) Dry Weight 121 kg (03/15/22 5:39 PM) Weight Obtained Via Bed scale (03/15/22 5:39 PM) Dry Weight Obtained Via Bed scale (03/15/22 5:39 PM) Social History Social History Type Response Smoking Status Current every day smoker entered on: 09/15/17 Sex
--- OUTSIDE RECORDS SUMMARY | 2022-06-28 07:02 | XMS_ITS | Continuity of Care Document ---
:1970 Author Organization [facility] Address [address] [place] [address]- Care Team Providers Name Role Phone Geovnay AUSTIN, Maria Antonia Primary Care Physician [place] [facility] [place]19[place] - 02/19/[address] [address]- Discharge Disposition: A-D/C Walkout Attending Physician: Not [...] Daily in AM, Maintenance, 02/08/22 11:00:00 EDT, [place], ; Start Date: 02/08/22 Status: Orderedgabapentin 300 [...] Refills, Maintenance, 11/03/21 12:11:00 EST, EC Tablet, [facility], Partial fill upon patient [...] Refills, Maintenance, 02/12/22 10:37:00 EDT, ER Tablet, [facility], Partial fill upon patient [...] 1 Oxygen Saturation [94-100 %] 99 % (02/19/22 2:27 PM) Pulse Rate [55-90 bpm] 109 bpm *H* (02/19/22 2:27 PM) Blood Pressure [90-138/55-84 mm Hg] 189/87 mm Hg *H* (02/19/22 2:27 PM) Respiratory Rate [16-30 br/min] 20 br/min (02/19/22 2:27 PM) Temperature [96.8-100.4 DegF] 98.2 DegF (02/19/22 2:27 PM) Mode of Delivery (Oxygen) Room air (02/19/22 2:27 PM) Blood pressure sites Arm, right (02/19/22 2:27 PM) Temperature Route Oral (02/19/22 2:27 PM) Social History Social History Type Response Smoking Status Current every day smoker entered on: 09/15/17 Sex
--- OUTSIDE RECORDS SUMMARY | 2022-06-28 07:02 | XMS_ITS | Continuity of Care Document ---
:1970 Author Organization [facility] Address [address] [place] [address]- Care Team Providers Name Role Phone Sobia Khalil DO Primary Care Physician Encounter [facility] [place] Date(s): 06/25/22 - 06/25/[address] [address]- Discharge Disposition: A-D/C Walkout Attending Physician: Not on Staff, Attending MD Admitting Physician: Not on Staff, Admitting MD Referring Physician: Not on Staff, Referring MD Allergies, Adverse Reactions, Alerts Substance Reaction Severity Status acetaminophen extremely itchy Active MetFORMIN (Eqv-Glumetza) Active shellfish1 Active Tylenol Active Fish2 Active 1patient reports itchy/tingling [id number] reports itchy/tingling throat Immunizations Given and Recorded [...] amLODIPine 10 mg oral tablet 10 mg, 1, [...] 01/26/20 Status: Orderedgabapentin 300 mg oral capsule 3 [...] 15:30:00 EDT, Route to Pharmacy Electronically, [id number], Partial fill upon patient request if the [...] EDT, ; Start Date: 02/08/22 Status: OrderedNystop 736505 u/gm powder 1 application, Topically, 2 times [...] opioid drug. Start Date: 05/29/22 Status: OrderedOxyCONTIN 40 mg oral tablet, extended [...] Confirmed Active Vitamin D deficiency Confirmed Active Social History Social History Type Response Smoking Status Never (less than 100 in life time) entered on: 05/13/22 Sex Patient Care team information PersonnelName: Sobia Khalil DO Address: Address: [address] [place] [address] [address]
--- OUTSIDE RECORDS SUMMARY | 2022-06-28 07:02 | XMS_ITS | Continuity of Care Document ---
:1970 Author Organization [facility] Address [address] [place] [address]- Care Team Providers Name Role Phone Simran Cuco HEREDIAjana Primary Care Physician Encounter [facility] [place] Date(s): 03/02/21 - 03/02/[address] [address]- Discharge Disposition: A-D/C Walkout Attending Physician: Not [...] drug. Start Date: 11/11/20 Status: Orderednystatin topical [id number] u/gm cream 1 application, Topically, 2 times [...] [Reference Range]: 1 Oxygen Saturation [94-100 %] 95 % (03/02/21 2:51 AM) Pulse Rate [55-90 bpm] 130 bpm *H* (03/02/21 2:51 AM) Blood Pressure [90-138/55-84 mm Hg] 159/109 mm Hg *H* (03/02/21 2:51 AM) Respiratory Rate [16-30 br/min] 20 br/min (03/02/21 2:51 AM) Temperature [96.8-100.4 DegF] 99.4 DegF (03/02/21 2:51 AM) Mode of Delivery (Oxygen) Room air (03/02/21 2:51 AM) Blood pressure sites Arm, right (03/02/21 2:51 AM) Temperature Route Oral (03/02/21 2:51 AM) Social History Social History Type Response Smoking Status Current every day smoker entered on: 09/15/17 Sex Female
--- OUTSIDE RECORDS SUMMARY | 2022-06-28 07:02 | XMS_ITS | Encounter Summary ---
:1970 External Reference #:[id number] Author Care Team Providers Name Role Phone [facility] Primary Care Referring Provider [phone] Reason for Visit abdominal pain not voiding Assessment and Plan Assessment Note I have reviewed and agree with the Asse ssment and Plan as documented by the Metal Machinist. I provided real -time medical direction via phone for this encounter, and was available for additional phone based assistance as needed. Patient given the opportunity to ask questions. 1. Retention of urine due to concern of urinary retention and patient's stated inability to self catheterize, I felt placing a ritchie this evening was in the patient's best interest. 14 fr cath placed easily per [facility] using s terile technique; Only 400 cc clear urine obtained- patient more comfortable s/p f oley-ow SG, no ketones/ not spilling glucose, but concern for dehydration given poor p o intake and limited u/o for 14 hrs without void. I ordered IV/ CMP for possible IVF - [facility] unable to get IV/ draw labs. Pat did not want to go to ER for eval- needs claire se f/u. Patient and son instructed by [facility] on proper ritchie care. Advised need to push fluids/SF electrolyte balanced// to go to the Er for hi fever- severe abd pain- aware need to call pcp in the am- needs urology referral. ? urinalysis, dipstick ? culture, urine ? glucose, fingerstick, blood ? catheterization, ritchie (PROC) 2. Diabetes mellitus ? glucose, fingerstick, blood Discussion Note: None recorded.Patient educational handouts: No information available. Plan of Care Reminders Provider Appointments None recorded. ? ? Lab Urinalysis, Dipstick 04/21/2022 Main - In sted ? Culture, Urine 04/21/2022 [facility] ? Glucose, Fingerstick, 04/21/2022 Main - I nsted Blood ? Glucose, Fingerstick, 04/22/2022 Main - I nsted Blood Referral None recorded. ? ? Procedures Catheterization, Ritchie 04/22/2022 ? (PROC) Surgeries None recorded. ? ? Imaging None recorded. ? ? Medications Name Start Date ? ? amlodipine 10 mg tablet ? amoxicillin 500 mg-potassium clavulanate 125 mg tablet ? amoxicillin 875 mg-potassium clavulanate 125 mg tablet ? aspirin 81 mg tablet,delayed release ? BD Ultra-Fine Sachi Pen Needle 32 gauge x 5/32 ? USE FOUR TIMES A DAY TO INJECT INSULIN bisacodyl 10 mg rectal suppository ? bupropion HCl XL 150 mg 24 hr tablet, extended release ? bupropion HCl XL 300 mg 24 hr tablet, extended release ? ceftriaxone 10 gram solution for injection ? ceftriaxone 2 gram solution for injection ? cephalexin 500 mg capsule ? chlorthalidone 25 mg tablet ? Combivent Respimat 20 mcg-100 mcg/actuation solution f or inhalation ? Culturelle 15 billion cell sprinkle capsule ? delivery fee ? doxycycline hyclate 100 mg capsule ? TAKE 1 CAPSULE BY MOUTH EVERY 12 HOURS FOR 5 DAYS doxycycline monohydrate 100 mg capsule ? enoxaparin 150 mg/mL subcutaneous syringe ? ferrous sulfate 325 mg (65 mg iron) tablet,delayed rel ease ? finasteride 5 mg tablet ? Flovent HFA 110 mcg/actuation aerosol inhaler ? fluticasone propionate 50 mcg/actuation nasal spray,cid spension ? FreeStyle [place] Lite kit ? FreeStyle Lancets 28 gauge ? FreeStyle Lite Strips ? gabapentin 300 mg capsule ? lamotrigine 100 mg tablet ? lamotrigine 200 mg tablet ? lamotrigine 25 mg tablet ? lisinopril 5 mg tablet ? loratadine 10 mg tablet ? lorazepam 2 mg tablet ? TAKE 1 TABLET BY MOUTH 3 TIMES DAILY NEEDED FOR 30 DAYS. metoclopramide 10 mg tablet ? morphine 15 mg immediate release tablet ? TAKE 1 TABLET BY MOUTH EVERY 4 HOURS NEEDED FOR PA IN nabumetone 500 mg tablet ? nicotine 21 mg/24 hr daily transdermal patch ? Novolog Flexpen U-100 Insulin aspart 100 unit/mL (3 mL ) subcutaneous ? Nystop 100,000 unit/gram topical powder ? omeprazole 20 mg capsule,delayed release ? ondansetron 4 mg disintegrating tablet ? Place 1 tablet twice a day by translingual route as n eeded. ondansetron HCl 4 mg tablet ? oxybutynin chloride ER 10 mg tablet,extended release 2 4 hr ? oxycodone 10 mg tablet ? oxycodone 15 mg tablet ? TAKE 1 TABLET BY MOUTH EVERY 4 HOURS NEEDED FOR PA IN oxycodone 20 mg tablet ? TAKE 1 TABLET BY MOUTH EVERY 4 HOURS NEEDED FOR PA IN oxycodone 5 mg tablet ? TAKE 2 TABLET NEEDED ORALLY ONCE DAILY 28 DAYS OxyContin 20 mg tablet,crush resistant,extended releas e ? TAKE 1 TABLET BY MOUTH EVERY 12 HOURS OxyContin 30 mg tablet,crush resistant,extended releas e ? TAKE 1 TABLET BY MOUTH EVERY 12 HOURS pantoprazole 40 mg tablet,delayed release ? polyethylene glycol 3350 17 gram/dose oral powder ? prednisone 20 mg tablet ? TAKE 4 TABLETS BY MOUTH DAILY FOR 2 DAY S, 3 TABLETS DAILY FOR 3 DAYS, 1 TABLET DAILY FOR 3 DAYS, THEN 1/2 TAB DAILY FOR 3 DAYS propranolol ER 120 mg capsule,24 hr,extended release ? rosuvastatin 40 mg tablet ? Rybelsus 14 mg tablet ? senna 8.6 mg tablet ? simethicone 125 mg chewable tablet ? Stimulant Laxative Plus 8.6 mg-50 mg tablet ? sulfamethoxazole 800 mg-trimethoprim 160 mg tablet ? tamsulosin 0.4 mg capsule ? Tresiba FlexTouch U-100 insulin 100 unit/mL (3 mL) sub cutaneous pen ? INJECT 80 UNITS SUBCUTANEOUSLY EVERY DAY AT BEDTIME vancomycin 1,000 mg intravenous injection ? vancomycin 10 gram intravenous solution ? vancomycin 5 gram intravenous solution ? vancomycin 500 mg intravenous solution ? vitamin A 10,000 unit capsule ? Vitamin C 500 mg tablet ? Vitamin D2 1,250 mcg (50,000 unit) capsule ? Vitamin D3 50 mcg (2,000 unit) capsule ? warfarin 5 mg tablet ? Xopenex Concentrate 1.25 mg/0.5 mL solution for nebuli zation ? zinc sulfate 50 mg zinc (220 mg) capsule ? zolpidem 10 mg tablet ? Medications Administered None recorded. Vitals Blood Pressure 167/82 mm[Hg] Results Lab Results Date Name Specimen Result Interpretation Description Value Range Status Address ? 04/22/2022 Glucose, ? Blood Glucose: 304 ? ? Main - Fingerstick, Blood mg/dl Insted: [address] [place] [address] 04/21/2022 Glucose, ? Blood Glucose: 304 ? ? Main - Fingerstick, Blood mg/dl Insted: [address] [place] [address] 04/21/2022 Urinalysis, ? Leukocytes neg ? ? Main - Dipstick Insted: [facility] ? ? ? Nitrite negative ? ? Main - Insted: [facility] ? ? ? Protein neg ? ? Main - Insted: [facility] ? ? ? Ph 6 ? ? Main - Insted: [facility] ? ? ? Blood neg ? ? Main - Insted: [facility] ? ? ? Specific 1.000 ? ? Main - Fries Insted: 3 0 [facility] ? ? ? Ketone neg ? ? Main - Insted: [facility] ? ? ? Glucose neg ? ? Main - Insted: [facility] ? ? ? Appearance clear ? ? Main - Insted: [facility] ? ? ? Color pale yellow ? ? Main - Insted: [facility] Allergies None recorded. Problems None recorded. Procedures None recorded. Vaccine List None recorded. Social History None recorded. Functional Status Unknown. Past Encounters 04/21/2022 Retention of Urine; Diabetes Mellitus Sandie Otero MD: [address] [place] [phone], Ph. History of Present Illness Note: <p><strong>HPI: </strong></p><div>
</div><p>51 year old female with diabetes, obesity, anxiety, and chronic pain/intractable back pain. She was just discharged from the hospital where she was getting straight caths and has not voided in >12 hours. Allergies: Tylenol, metformin, morphine</p><p>....................................... ................................................................................ ......................</p><div>
</div><p><strong>CRC Nursing Assessment: </strong></p><div>
</div><p>Comments: spoke with member concern for prolonged period of time without urinating recent admit to hospital due to fall d/c yesterday states hadissue with retention while admitted straight caths at times with good relief no fever/chills refuse E D</p><p>........................................................................ ......... ............................................................</p><div>
</div&g t;<p><strong>Metal Machinist Note: </strong></p><div>
</div><p>Pt states she was recently discharged from the ED after being there for 6 days. In the ED thePt had a ritchie placed and was able to void on her own prior to discharge. Pt states she has not beenable to urinate in over 14 hours even though it feels like she needs to. [facility] contacted. Ritchie placed 14fr. Approx 400cc voided. Poor iv access, unable to complete CMP. Red flags discussed. Pt and son shown how to empty ritchie bag. UA (-) for UTI. </p><p>................................... ................................................................................ ..........................</p><div>
</div><p><strong>Disposition: </strong>&l t;/p><div>
</div><p>Fulfilled</p><div>SEGMD: As above- patreports she does not feel she can straight cath herself- lacks mobility / dexterity. C/o suprapubic pain and bloating. Had sl, non bloody, diarrhea this am- no vomiting but has taken minimal po</div>Review of Systems: ROS as noted in the HPI Review of Systems None recorded. Physical Exam ? Notes: <div>as per MI( medic): Hyp ertensive, anxious, appears uncomfortable- tender suprapubic</div>
--- OUTSIDE RECORDS SUMMARY | 2022-06-28 07:02 | XMS_ITS | Continuity of Care Document ---
:1970 Author Organization [facility] Address [address] [place] [address]- Care Team Providers Name Role Phone Simran HEREDIA Sobia Primary Care Physician Encounter [facility] Date(s): 09/07/21 - 10/07/21 [facility] [address] [place] [id number] Allergies, Adverse Reactions, Alerts Substance Reaction Severity [...] 10/05/21 10:58:00 EST, Route to Pharmacy Electronically, [id number], Partial fill upon patient request [...] 0 Refills, Maintenance, 07/27/21 14:56:00 EST, Solution, [facility], Partial fill upon patient request [...]
--- OUTSIDE RECORDS SUMMARY | 2022-06-28 07:02 | XMS_ITS ---
:1970 External Reference #:[id number] Author Care Team Providers Name Role Phone [facility]IMARY [facility] Referring Provider [phone] Allergies None recorded. Medications Name Status Start Date Stop Date ? ? amlodipine 10 mg tablet Active ? Not avai lable amoxicillin 500 mg-potassium clavulanate 125 mg tablet Active ? Not available amoxicillin 875 mg-potassium clavulanate 125 mg tablet Active ? Not available aspirin 81 mg tablet,delayed release Active ? Not available BD Ultra-Fine Sachi Pen Needle 32 gauge x Active ? Not available USE FOUR TIMES A DAY TO INJECT INSULIN bisacodyl 10 mg rectal suppository Active ? Not available bupropion HCl XL 150 mg 24 hr tablet, extended release Active ? Not available bupropion HCl XL 300 mg 24 hr tablet, extended release Active ? Not available ceftriaxone 10 gram solution for injection Active ? Not available ceftriaxone 2 gram solution for injection Active ? Not available cephalexin 500 mg capsule Active ? Not av ailable chlorthalidone 25 mg tablet Active ? Not available Combivent Respimat 20 mcg-100 mcg/actuation solution for Active ? Not available inhalation Culturelle 15 billion cell sprinkle capsule Active ? Not available delivery fee Active ? Not available doxycycline hyclate 100 mg capsule Active ? Not available TAKE 1 CAPSULE BY MOUTH EVERY 12 HOURS FOR 5 DAYS doxycycline monohydrate 100 mg capsule Active ? Not available enoxaparin 150 mg/mL subcutaneous syringe Active ? Not available ferrous sulfate 325 mg (65 mg iron) tablet,delayed release Activ e ? Not available finasteride 5 mg tablet Active ? Not avai lable Flovent HFA 110 mcg/actuation aerosol inhaler Active ? Not available fluticasone propionate 50 mcg/actuation nasal Active ? Not available spray,suspension FreeStyle [place] Lite kit Active ? Not a vailable FreeStyle Lancets 28 gauge Active ? Not a vailable FreeStyle Lite Strips Active ? Not availa ble gabapentin 300 mg capsule Active ? Not av ailable lamotrigine 100 mg tablet Active ? Not av ailable lamotrigine 200 mg tablet Active ? Not av ailable lamotrigine 25 mg tablet Active ? Not rené ilable lisinopril 5 mg tablet Active ? Not avail able loratadine 10 mg tablet Active ? Not avai lable lorazepam 2 mg tablet Active ? Not availa ble metoclopramide 10 mg tablet Active ? Not available morphine 15 mg immediate release tablet Active ? Not available TAKE 1 TABLET BY MOUTH EVERY 4 HOURS NEEDED FOR PAIN nabumetone 500 mg tablet Active ? Not rené ilable nicotine 21 mg/24 hr daily transdermal patch Active ? Not available Novolog Flexpen U-100 Insulin aspart 100 unit/mL (3 mL) Active ? Not available subcutaneous Nystop 100,000 unit/gram topical powder Active ? Not available omeprazole 20 mg capsule,delayed release Active ? Not available ondansetron 4 mg disintegrating tablet Active ? Not available Place 1 tablet twice a day by translingual route as needed. ondansetron HCl 4 mg tablet Active ? Not available oxybutynin chloride ER 10 mg tablet,extended release 24 hr Activ e ? Not available oxycodone 10 mg tablet Active ? Not avail able oxycodone 15 mg tablet Active ? Not avail able oxycodone 20 mg tablet Active ? Not avail able oxycodone 5 mg tablet Active ? Not availa ble OxyContin 20 mg tablet,crush resistant,extended release Active ? Not available OxyContin 30 mg tablet,crush resistant,extended release Active ? Not available pantoprazole 40 mg tablet,delayed release Active ? Not available polyethylene glycol 3350 17 gram/dose oral powder Active ? Not available prednisone 20 mg tablet Active ? Not avai lable TAKE 4 TABLETS BY MOUTH DAILY FOR 2 DAY S, 3 TABLETS DAILY FOR 3 DAYS, 1 TABLET DAILY FOR 3 DAYS, THEN 1/2 TAB DAILY FOR 3 DAYS propranolol ER 120 mg capsule,24 hr,extended release Active ? Not available rosuvastatin 40 mg tablet Active ? Not av ailable Rybelsus 14 mg tablet Active ? Not availa ble senna 8.6 mg tablet Active ? Not availabl e simethicone 125 mg chewable tablet Active ? Not available Stimulant Laxative Plus 8.6 mg-50 mg tablet Active ? Not available sulfamethoxazole 800 mg-trimethoprim 160 mg tablet Active ? Not available tamsulosin 0.4 mg capsule Active ? Not av ailable Tresiba FlexTouch U-100 insulin 100 unit/mL (3 mL) subcutaneous pen Active ? Not available INJECT 80 UNITS SUBCUTANEOUSLY EVERY DAY AT BEDTIME vancomycin 1,000 mg intravenous injection Active ? Not available vancomycin 10 gram intravenous solution Active ? Not available vancomycin 5 gram intravenous solution Active ? Not available vancomycin 500 mg intravenous solution Active ? Not available vitamin A 10,000 unit capsule Active ? No t available Vitamin C 500 mg tablet Active ? Not avai lable Vitamin D2 1,250 mcg (50,000 unit) capsule Active ? Not available Vitamin D3 50 mcg (2,000 unit) capsule Active ? Not available warfarin 5 mg tablet Active ? Not availab le Xopenex Concentrate 1.25 mg/0.5 mL solution for Active ? Not available nebulization zinc sulfate 50 mg zinc (220 mg) capsule Active ? Not available zolpidem 10 mg tablet Active ? Not availa ble Problems None recorded. Procedures None recorded. Results Lab Results Date Name Specimen Result Interpretation Description Value Range Status Address ? 04/22/2022 Glucose, ? Blood Glucose: 304 ? ? Main - Fingerstick, Blood mg/dl Insted: [address] [place] [address] 04/21/2022 Glucose, ? Blood Glucose: 304 ? ? Main - Fingerstick, Blood mg/dl Insted: [address] [place] [address] 04/21/2022 Urinalysis, ? Leukocytes neg ? ? Main - Dipstick Insted: [address] [place] [address] ? ? ? Nitrite negative ? ? Main - Insted: [address] [place] [address] ? ? ? Protein neg ? ? Main - Insted: [address] [place] [address] ? ? ? Ph 6 ? ? Main - Insted: [address] [place] [address] ? ? ? Blood neg ? ? Main - Insted: [address] [place] [address] ? ? ? Specific 1.000 ? ? Main - [place] Insted: [facility] ? ? ? Ketone neg ? ? Main - Insted: [address] [place] [address] ? ? ? Glucose neg ? ? Main - Insted: [address] [place] [address] ? ? ? Appearance clear ? ? Main - Insted: [address] [place] [address] ? ? ? Color pale yellow ? ? Main - Insted: [address] [place] [address] Past Encounters 06/24/2022 Diarrhea Roxane Crooks MD: [address] [place] [phone], Ph. 04/21/2022 Retention of Urine; Diabetes Mellitus Sandie Otero [facility]: [address] [facility] [place] [phone], Ph. 02/07/2022 Nausea and Vomiting Cesar Gomez MD: [address] [place], [place] [address] [address], Ph. 01/07/2022 Low Blood Pressure Carla Maza MD: [address] [place] [address] [place] [phone], Ph. 12/27/2021 Cesar Gomez MD: [address] [place], [place] [address] [phone], Ph. Social History None recorded. Vaccine List None recorded. Plan of Care Reminders Provider Appointments None recorded. ? ? Lab None recorded. ? ? Referral None recorded. ? ? Procedures None recorded. ? ? Surgeries None recorded. ? ? Imaging None recorded. ? ? Vitals 06/24/2022 03:03PM Urgent Care Height Blood Pressure 1 ft 1 in 144/82 mm[Hg] 04/21/2022 06:33PM Urgent Care Blood Pressure 167/82 mm[Hg] 02/07/2022 02:28PM Urgent Care Height Weight Blood Pressure 5 ft 8 in 280 lbs 178/85 mm[Hg] 01/07/2022 12:51PM Urgent Care Blood Pressure 69/43 mm[Hg]
--- OUTSIDE RECORDS SUMMARY | 2022-06-28 07:02 | XMS_ITS | Continuity of Care Document ---
:1970 Author Organization [facility] Address [address] [place] [address]- Care Team Providers Name Role Phone Sobia Khalil DO Primary Care Physician Encounter [facility] Date(s): 06/06/22 - 06/10/[address] [address] Encounter Diagnosis Back pain (Final) - 06/06/22 Discharge Disposition: A-D/C Home Attending Physician: Samantha Kent MD Admitting Physician: Bety Mensah MD Referring Physician: Not on Staff, Referring MD Allergies, Adverse Reactions, Alerts Substance Reaction Severity Status acetaminophen extremely itchy Active MetFORMIN (Eqv-Glumetza) Active shellfish1 Active Tylenol Active Fish2 Active 1patient reports itchy/tingling [id number] reports itchy/tingling throat Immunizations Given and Recorded [...] oral tablet 5 mg, Tablet, By Mouth, 06/10/22 9:00:00 EDT Start Date: 06/10/22 Stop Date: 06/10/22 Status: CompletedamLODIPine 5 mg oral tablet 5 [...] oral capsule 600 mg, Capsule, By Mouth, in the afternoon, 06/10/22 9:00:00 EDT Start Date: 06/10/22 Stop Date: 06/10/22 Status: Completedgabapentin 300 mg oral capsule 3 [...] 13:07:00 EDT, ; Start Date: 04/12/22 Status: OrderedMultivit Therapeutic/Minerals [...] EDT, ; Start Date: 02/08/22 Status: OrderedNystop 315394 u/gm powder 1 application, Topically, 2 times [...] hours, PRN for Pain , Moderate, Routine, 06/08/22 12:43:00 EDT Start Date: 06/08/22 Stop Date: 06/10/22 Status: DiscontinuedOxyCONTIN 40 mg oral tablet, extended [...] release 120 mg, CR Capsule, By Mouth, 06/10/22 9:00:00 EDT Start Date: 06/10/22 Stop Date: 06/10/22 Status: Completedrosuvastatin 40 mg oral tablet 1 [...] 10:50:00 EDT, ; Start Date: 02/08/22 Status: Orderedvancomycin 125 mg oral capsule 1 capsule = 125 mg, By Mouth, Every 6 hours, # 40 capsule, 0 Refills, Maintenance, 06/07/22 14:48:00EDT, Capsule, Partial fill upon patient request if the prescription is for a schedule II opioid drug. Start Date: 06/07/22 Stop Date: 06/17/22 Status: OrderedVitamin D2 50,000 intl units (1.25 [...] Height 172 cm 172 cm 172 cm (06/10/22 12:27 PM) (06/10/22 8:54 AM) (06/10/22 3: 31 AM) Weight 120.6 kg 120 kg 120 kg (06/06/22 8:25 PM) (06/06/22 3:11 AM) (06/06/22 12: 25 AM) Oxygen Saturation [94-100 96 % 97 % 95 % %] (06/10/22 12:27 PM) (06/10/22 8:54 AM) (06/10/22 3: 31 AM) Pulse Rate [55-90 bpm] 73 bpm 72 bpm 72 bpm (06/10/22 12:27 PM) (06/10/22 9:56 AM) (06/10/22 8: 54 AM) Body Mass Index 40.77 40.56 40.56 [18.5-24.99] *>HHI* *>HHI* *>HHI* (06/06/22 8:25 PM) (06/06/22 3:11 AM) (06/06/22 12: 21 AM) Blood Pressure 104/61 mm Hg 146/53 mm Hg 146/53 mm Hg [90-138/55-84 mm Hg] (06/10/22 12:27 PM) *H* *H* (06/10/22 9:57 AM) (06/10/22 9:56 AM) Respiratory Rate [16-30 16 br/min 18 br/min 18 br/mi n br/min] (06/10/22 12:27 PM) (06/10/22 11:00 AM) (06/10/22 1 0:56 AM) Temperature [96.8-100.4 98.2 DegF 98.2 DegF 98.5 Deg F DegF] (06/10/22 12:27 PM) (06/10/22 8:54 AM) (06/10/22 3: 31 AM) Liters per Minute 0 L/min 0 L/min 0 L/min (06/10/22 12:27 PM) (06/10/22 8:54 AM) (06/09/22 3: 05 PM) Mode of Delivery (Oxygen) Room air Room air Room a ir (06/10/22 12:27 PM) (06/10/22 8:54 AM) (06/10/22 3: 31 AM) Blood pressure sites Arm, right Arm, left Arm, left (06/10/22 12:27 PM) (06/10/22 8:54 AM) (06/10/22 3: 31 AM) Temperature Route Temporal Temporal Oral (06/10/22 12:27 PM) (06/10/22 8:54 AM) (06/10/22 3: 31 AM) Dry Weight 120.6 kg 120 kg 120 kg (06/06/22 8:25 PM) (06/06/22 3:11 AM) (06/06/22 12: 25 AM) Weight Obtained Via Standing scale Patient/family stated (06/06/22 8:25 PM) (06/06/22 12:21 AM) Dry Weight Obtained Via Patient/family stated (06/06/22 12:21 AM) Social History Social History Type Response Smoking Status Never (less than 100 in life time) entered on: 05/13/22 Sex Care Team PersonnelName: Simran HEREDIASobia Address: [address] [place] [address]
--- OUTSIDE RECORDS SUMMARY | 2022-06-28 07:02 | XMS_ITS | Encounter Summary ---
:1970 External Reference #:[id number] Author Care Team Providers Name Role Phone [facility] Primary [facility] Referring Provider [phone] Reason for Visit Abdominal Pain Assessment and Plan Assessment Note I have reviewed and agree with the asse ssment and plan as documented by the diesel dinkey operator. I provided real-time medical direction for this encounter and was immediately available to provide additional phone-based assistance as needed. 51F with complex medical history, presen ts with stool incontinence, diarrhea. No fever, no blood in stool. Pt was recently discharged from hospital with concerns for suicidal attempt. Developed diarrhea prior to discharge, concern for Cdiff. On exam, pt well appearing presently, vitals stable with no fever. Abdomen soft. Stool presently formed, sample obtained. Mild nausea noted, with no vomiting. Plan: Zofran prescription Stool sample sent for C.diff, to follow up culture Supportive care advised with adequate PO hydration for care team follow up 1. Diarrhea ? ondansetron 4 mg disintegrating table t Discussion Note: None recorded.Patient educational handouts: No [...] Ultra-Fine Sachi Pen Needle 32 gauge x ? USE FOUR TIMES A DAY TO [...] 50 mcg/actuation nasal spray,cid spension ? FreeStyle [place] Lite kit ? FreeStyle Lancets 28 gauge [...] release ? rosuvastatin 40 mg tablet ? Cornelsus 14 mg tablet ? senna 8.6 mg [...] tablet ? Medications Administered None recorded. Vitals Height Blood Pressure 1 ft 1 in 144/82 mm[Hg] Results Lab Results None recorded. Allergies None recorded. Problems None recorded. Procedures None recorded. Vaccine List None recorded. Social History None recorded. Functional Status Unknown. Past Encounters 06/24/2022 Diarrhea Roxane Crooks MD: [address] [place] [phone], Ph. History of Present Illness Note: <p><strong>HPI: </strong>

Hx of C-diff, Gastroparesis, Long QT interval, Osteomyelitis of lumbar spine, chronic pain syndrome, hx of hyperkalemia, Transaminitid, HLD, Hidradenitis suppurativa, pt c/o of diarrhea, she reports that its coming out, I can't feel it, it started last night, since last night 6 times, no vomiting, c/o of abdominal pain, pt has HXof c-diff. Allergies: Acetaminophen, Metformin, Morphine
.................................. ................................................................................ ...........................

<strong>CRC Nursing Assessment: </strong>

Comments: CRC RN did not require any additional information to process this visit.</p> Review of Systems None recorded. Physical Exam None recorded.
[2022-06-28] MEDS: Ketorolac Tromethamine 15 MG/ML VIAL IVPUSH (07:59)
--- NOTE | 2022-06-28 08:08 | ED.GENADULT ---
HPI - General Adult General Chief complaint: Nausea/Vomiting/Diarrhea Stated complaint: multiple complaints Time Seen by Provider: 06/28/22 08:08 Source: patient and EMS Mode of arrival: EMS Limitations: no limitations History of Present Illness HPI narrative: Patient is a 51 year old assigned female with a history of hypertension, anxiety, chronic pain, and GERD presenting to the emergency department today with bilateral lower leg pain and nausea. Patient states that over the last 3 days she has had nausea and felt like her lower legs aren't holding her weight like they usually do. Patient denies any dizziness, lightheadedness, abdominal pain, vomiting, fever, chills, blurry vision, double vision, loss of vision, chest pain, difficulty breathing, shortness of breath, back pain, night sweats, pain with urination, increased urinary frequency, increased urinary urgency, blood in her urine or stool, syncope or a near syncopal episode, recent trauma or falls, bowel incontinence, bladder incontinence, bowel retention, bladder retention, or any other complaints at this time. Onset (ago): day(s) (3) Severity: mild Severity scale (1-10): 3 Relieving factors: none Exacerbating factors: none Associated symptoms: denies other symptoms Treatments prior to arrival: none Related Data Home Medications Medication Instructions Recorded Confirmed amlodipine 10 mg tablet 10 mg PO DAILY 07/07/20 12/30/21 aspirin 81 mg tablet,delayed 81 mg PO DAILY 07/07/20 12/30/21 release bupropion HCl 300 mg 24 hr tablet, 300 mg PO DAILY 07/07/20 12/30/21 extended release chlorthalidone 25 mg tablet 25 mg PO DAILY 07/07/20 12/30/21 finasteride 5 mg tablet 5 mg PO DAILY 07/07/20 12/30/21 insulin aspart U-100 100 unit/mL See Rx Instructions .Route .COMPLEX 07/07/20 12/30/21 (3 mL) subcutaneous pen (Novolog Flexpen U-100 Insulin aspart) lisinopril 5 mg tablet 5 mg PO DAILY 07/07/20 12/30/21 loratadine 10 mg tablet 10 mg PO DAILY 07/07/20 12/30/21 lorazepam 2 mg tablet 1 tab PO TID PRN Anxiety 07/07/20 12/30/21 nabumetone 500 mg tablet 500 tab PO BID 07/07/20 12/30/21 nystatin 100,000 unit/gram topical 1 applic topical QID 07/07/20 12/30/21 powder ([facility] [place]) oxybutynin chloride 10 mg 10 mg PO DAILY 07/07/20 12/30/21 tablet,extended release 24 hr propranolol 120 mg capsule,24 120 mg PO DAILY 07/07/20 12/30/21 hr,extended release rosuvastatin 40 mg tablet 40 mg PO BEDTIME 07/07/20 12/30/21 zolpidem 10 mg tablet 10 mg PO BEDTIME PRN Insomnia 07/07/20 12/30/21 fluticasone propionate 110 2 puff inhalation BID 04/08/21 12/30/21 mcg/actuation HFA aerosol inhaler (Flovent HFA) gabapentin 300 mg capsule 900 mg PO TID 04/08/21 12/30/21 semaglutide 7 mg tablet (Rybelsus) 1 tab PO DAILY 04/08/21 12/30/21 Lactobacillus rhamnosus GG 15 2 cap PO DAILY 12/30/21 12/30/21 billion cell sprinkle capsule (Culturelle) doxycycline hyclate 100 mg capsule 1 cap PO Q12H 12/30/21 12/30/21 ergocalciferol (vitamin D2) 1,250 50,000 unit PO QWEEK 12/30/21 12/30/21 mcg (50,000 unit) capsule (Vitamin D2) fluticasone propionate 50 1 spray intranasal DAILY 12/30/21 12/30/21 mcg/actuation nasal spray,suspension insulin degludec 100 unit/mL (3 80 unit subcut BEDTIME 12/30/21 12/30/21 mL) subcutaneous pen (Tresiba FlexTouch U-100 insulin) lamotrigine 25 mg tablet 200 mg PO BEDTIME 12/30/21 12/30/21 omeprazole 20 mg capsule,delayed 1 cap PO DAILY 12/30/21 12/30/21 release oxycodone 20 mg tablet 20 mg PO Q4H PRN Pain 12/30/21 12/30/21 oxycodone 30 mg tablet,crush 1 tab PO BID 12/30/21 12/30/21 resistant,extended release 12 hr (OxyContin) simethicone 125 mg chewable tablet mg PO BID PRN Gastric Reflux 12/30/21 Previous Rx's Medication Instructions Recorded metoclopramide HCl 10 mg tablet 10 mg PO Q6H PRN nausea and 02/14/22 (Reglan) vomiting #10 tabs ondansetron 4 mg disintegrating 4 mg PO Q8H PRN nausea and 02/14/22 tablet vomiting #7 tabs fidaxomicin 200 mg tablet 200 mg PO BID 10 days #20 tabs 05/13/22 Allergies Allergy/AdvReac Type Severity Reaction Status Date / Time metformin Allergy Severe Unknown Verified 07/07/20 08:27 acetaminophen [From TYLENOL] Allergy Unknown HIVES Verified 07/07/20 08:27 clonazepam [From KLONOPIN] Allergy Unknown HIVES Verified 07/07/20 08:27 Review of Systems Constitutional: Constitutional: Reports no additional constitutional complaints, Denies chills, Denies fever(s) and Denies night sweats Eyes: Eyes: Reports no additional eye complaints, Denies blurry vision, Denies change in vision, Denies diplopia, Denies eye discharge, Denies loss of vision and Denies eye pain ENT: Denies dizziness Cardiovascular: Cardiovascular: Reports no additional cardiovascular complaints, Denies chest pain, Denies lightheadedness, Denies Loss of Consciousness and Denies dyspnea Respiratory: Respiratory: Reports no additional respiratory complaints and Denies dyspnea Gastrointestinal: Gastrointestinal: Reports no additional gastrointestinal complaints, Denies abdominal pain, Denies melena, Denies hematochezia, Denies change in bowel habits, Denies change in stool character and Reports nausea Genitourinary: Genitourinary: Denies hematuria, Denies urinary frequency, Denies dysuria, Denies urinary incontinence, Denies urinary hesitancy and Denies urinary urgency Musculoskeletal: Musculoskeletal: Reports no additional musculoskeletal complaints, Denies numbness and Denies tingling Neurologic: Denies dizziness, Denies loss of vision, Denies numbness and Denies tingling Psychiatric: Psychiatric: Reports no additional psychiatric complaints Endocrine: Endocrine: Reports no additional endocrine complaints Hematologic/Lymphatic: Hematologic/Lymphatic: Reports no additional hematologic/lymphatic complaints Allergic/Immunologic: Allergic/Immunologic: Reports no additional allergic/immunologic complaints PMFSH Past Medical History Attestation statement: The following information was validated with the patient. Source: old records reviewed Medical History (Updated 06/28/22 @ 09:41 by LAUREN Cruz) Agoraphobia Allergic rhinitis Anxiety and depression Asthma Bipolar illness Borderline personality disorder Chronic back pain CKD (chronic kidney disease) Depression Diabetes FSGS (focal segmental glomerulosclerosis) GERD (gastroesophageal reflux disease) Hypercalcemia Hyperlipidemia Hypertension Insomnia Insulin dependent type 2 diabetes mellitus Iron deficiency Lower back pain Morbid obesity Obesity Overactive bladder Tobacco dependence syndrome Urinary incontinence Vitamin D deficiency Surgical History H/O oophorectomy History of appendectomy Social History Social History Household Members: Caregiver Housing: Apartment Do you presently have visiting nurse or other home services: Yes Alcohol intake: former Patient Tobacco Use Status: Tobacco use Unknown Tobacco use type: Cigarette Cigarette Packs Per Day: 1 Cigarettes Per Day: 20.0 Use of substances other than those prescribed or required for medical reasons: No Advance Directives: Yes Advance Directives on File: Yes Advance Directives Date on File: 04/09/21 service: No Current occupational status: disabled Physical Exam ED Vital Signs: Vital Signs - 24 hr 06/28/22 05:16 06/28/22 08:29 Temperature 98.9 F 98.5 F Pulse Rate 89 86 Respiratory Rate 18 14 Blood Pressure 141/58 H 153/63 H Pulse Oximetry 98 95 Oxygen Delivery Method Room Air Room Air BMI result Body Mass Index 39.5 Const General: cooperative, no acute distress, alert and awake Nutritional Appearance: well nourished Orientation/consciousness: patient oriented x3 Limitations: no limitations HENMT Head: Yes normal to inspection and Yes atraumatic Ears: hearing grossly normal bilaterally and external ears normal General nose exam: Normal external nose present, no nasal discharge noted and no epistaxis Face and sinus: Yes normal facial exam, No abrasion and No laceration Mouth: Normal oral and palatal mucosa present, no drooling and no muffled voice Eyes General: appearance normal, both eyes and all related structures Periorbital: periorbital findings normal Eyelids: Yes eyelids normal Conjunctivae: conjunctivae normal Pupils: Equal, round and reactive pupils present EOM: EOMs intact bilaterally Neck Neck: Yes normal visual inspection, Yes full ROM and Yes no lymphadenopathy Chest Chest palpation & inspection: normal inspection of the chest Resp Effort & Inspection: normal respiratory effort and able to speak in complete sentences Auscultation: clear to auscultation bilaterally Cardio Rate: regular rate Rhythm: regular rhythm GI Inspection: Yes normal to inspection Palpation (GI): Soft to palpation, not firm, nontender and no guarding Neuro General: patient oriented x3 and moves all extremities Cranial nerves: Yes Equal, round and reactive pupils present Cognition (Neuro): normal cognition Motor exam (neuro): 5/5 motor strength present throughout Sensory Exam: Normal double simultaneous stimulation for sensation Coordination: [id number] test normal Extrem General: Yes normal to inspection, Yes full ROM and Yes capillary refill normal Psych Appearance: grossly normal Mental Status: mental status grossly normal Affect: normal affect Attitude: cooperative Thought process: Normal thought process present Thought content: Normal thought content present Insight: Good insight present (Psych) Medical Decision Making MDM Narrative Medical decision making narrative: Patient is a 51 year old assigned female with a history of CKD, HTN, GERD, anxiety / depression, and chronic pain presenting to the emergency department today with vague weakness and nausea. Patient's physical exam was unremarkable. Patient's blood work was unremarkable. Patient's urine showed no acute process. Patient's EKG was unremarkable. I explained my physical exam findings as well as all test results to the patient. I answered all questions asked by the patient. I recommended the patient have an evaluation by physical therapy and be evaluated for placement into a short term rehab. Patient adamantly refused and stated that she would rather just go home. I stressed the importance of the patient taking her medication as prescribed. I stressed the importance of the patient following up with her primary care provider. I stressed the importance of the patient returning to the emergency department immediately if her symptoms were to worsen or if she were to develop any dizziness, shortness of breath, difficulty breathing, chest pain, blurry vision, loss of vision, nausea, vomiting, abdominal pain, fever, chills, back pain, or any other complaints. Patient verbalized agreement and understanding with this treatment plan and discharge. Medical Records Medical records reviewed: Yes I reviewed the patient's medical records. Lab Data Lab results reviewed: Yes I reviewed the patient's lab results. Result diagrams: 06/28/22 06:35 06/28/22 07:57 Labs: Lab Results 06/28/22 06/28/22 06/28/22 Range/Units 06:04 06:35 06:35 WBC 15.4 H (4.8-10.8) X10*3/uL RBC 4.14 L (4.20-5.50) X10*6/uL Hgb 12.3 (12.0-16.0) g/dl Hct 36.9 L (37.0-47.0) % MCV 89.1 (80.0-98.0) fL MCH 29.7 (27.0-33.0) pg MCHC 33.3 (31.0-35.0) g/dl RDW 14.4 (11.0-16.0) % Plt Count 330 (160-400) X10*3/uL MPV 9.2 L (9.4-12.3) fL Immature Gran % (Auto) 0.6 H (0.0-0.4) % Neut % (Auto) 85.4 H (45-73) % Lymph % (Auto) 8.9 L (20-40) % [place] % (Auto) 3.2 (2-11) % Eos % (Auto) 1.5 (0-4) % Baso % (Auto) 0.4 (0-2) % Lymph # (Auto) 1.4 (1.2-4.9) X10*3/uL [place] # (Auto) 0.5 (0.1-1.2) X10*3/uL Eos # (Auto) 0.2 (0.0-0.4) X10*3/uL Baso # (Auto) 0.1 (0.0-0.2) X10*3/uL Abs Immat Gran (auto) 0.10 H (0.00-0.03) X10*3/uL Absolute Neuts (auto) 13.2 H (2.0-8.3) x10*3/uL Absolute Nucleated RBC 0.000 (0.0-0.012) X10*3/uL Nucleated RBC % (auto) 0.0 (0.0-0.2) /100WBC Sodium (135-145) mmol/L Potassium (3.3-5.1) mmol/L Chloride (96-108) mmol/L Carbon Dioxide (22-29) mmol/L Anion Gap (12-20) BUN (9-16) mg/dL Creatinine (0.5-1.4) mg/dL Estim Creat Clear Calc Estimated GFR POC Glucose 257 H (60-115) mg/dL Random Glucose (60-115) mg/dL Calcium (8.4-10.2) mg/dL Lipase (8-78) U/L COVID-19 (ETHAN) Negative (Negative) COVID-19 Clin Com See Note 06/28/22 Range/Units 07:57 WBC (4.8-10.8) X10*3/uL RBC (4.20-5.50) X10*6/uL Hgb (12.0-16.0) g/dl Hct (37.0-47.0) % MCV (80.0-98.0) fL MCH (27.0-33.0) pg MCHC (31.0-35.0) g/dl RDW (11.0-16.0) % Plt Count (160-400) X10*3/uL MPV (9.4-12.3) fL Immature Gran % (Auto) (0.0-0.4) % Neut % (Auto) (45-73) % Lymph % (Auto) (20-40) % [place] % (Auto) (2-11) % Eos % (Auto) (0-4) % Baso % (Auto) (0-2) % Lymph # (Auto) (1.2-4.9) X10*3/uL [place] # (Auto) (0.1-1.2) X10*3/uL Eos # (Auto) (0.0-0.4) X10*3/uL Baso # (Auto) (0.0-0.2) X10*3/uL Abs Immat Gran (auto) (0.00-0.03) X10*3/uL Absolute Neuts (auto) (2.0-8.3) x10*3/uL Absolute Nucleated RBC (0.0-0.012) X10*3/uL Nucleated RBC % (auto) (0.0-0.2) /100WBC Sodium 132 L (135-145) mmol/L Potassium 5.1 (3.3-5.1) mmol/L Chloride 98 (96-108) mmol/L Carbon Dioxide 19 L (22-29) mmol/L Anion Gap 20 (12-20) BUN 19 H (9-16) mg/dL Creatinine 0.86 (0.5-1.4) mg/dL Estim Creat Clear Calc 104.5 Estimated GFR > 60 POC Glucose (60-115) mg/dL Random Glucose 276 H (60-115) mg/dL Calcium 10.2 (8.4-10.2) mg/dL Lipase 21 (8-78) U/L COVID-19 (ETHAN) (Negative) COVID-19 Clin Com Discharge Plan Discharge Clinical Impression: Weakness Patient Disposition: Home, Self-Care Instructions: Weakness (ED) Additional Instructions: Follow up with your primary care provider. Return to the emergency department immediately if your symptoms worsen or if you develop any dizziness, shortness of breath, difficulty breathing, chest pain, blurry vision, loss of vision, nausea, vomiting, abdominal pain, fever, chills, back pain, or any other complaints. Prescriptions: No Action nystatin [Nyamyc] 100,000 unit/gram powder 1 applic topical QID insulin aspart U-100 [Novolog Flexpen U-100 Insulin] 100 unit/mL (3 mL) insulin pen See Rx Instructions .ROUTE .COMPLEX Protocol: Insulin Correction Scale Less than or equal to 110 ---- Give (units): 0 111 to 150 Give (units): 0 151 to 200 Give (units): 2 201 to 250 Give (units): 4 251 to 300 Give (units): 6 301 to 350 Give (units): 8 Greater than 350 Give (units): 10 Call MD if Blood Glucose > : 350 Rx Instructions: Patient did not know her scale other than the fact that it changed recently oxybutynin chloride 10 mg tablet extended release 24hr 10 mg PO DAILY chlorthalidone 25 mg tablet 25 mg PO DAILY aspirin 81 mg tablet,delayed release (DR/EC) 81 mg PO DAILY lorazepam 2 mg tablet 1 tab PO TID PRN (Reason: Anxiety) amlodipine 10 mg tablet 10 mg PO DAILY lisinopril 5 mg tablet 5 mg PO DAILY propranolol 120 mg capsule,extended release 24 hr 120 mg PO DAILY zolpidem 10 mg tablet 10 mg PO BEDTIME PRN (Reason: Insomnia) finasteride 5 mg tablet 5 mg PO DAILY loratadine 10 mg tablet 10 mg PO DAILY nabumetone 500 mg tablet 500 tab PO BID rosuvastatin 40 mg tablet 40 mg PO BEDTIME bupropion HCl 300 mg tablet extended release 24 hr 300 mg PO DAILY gabapentin 300 mg capsule 900 mg PO TID Rybelsus 7 mg tablet 1 tab PO DAILY Flovent HFA 110 mcg/actuation HFA aerosol inhaler 2 puff inhalation BID doxycycline hyclate 100 mg capsule 1 cap PO Q12H lamotrigine 25 mg tablet 200 mg PO BEDTIME omeprazole 20 mg capsule,delayed release(DR/EC) 1 cap PO DAILY simethicone 125 mg tablet,chewable PO BID PRN (Reason: Gastric Reflux) ergocalciferol (vitamin D2) [Vitamin D2] 1,250 mcg (50,000 unit) capsule 50,000 unit PO QWEEK fluticasone propionate 50 mcg/actuation spray,suspension 1 spray intranasal DAILY oxycodone 20 mg tablet 20 mg PO Q4H PRN (Reason: Pain) Culturelle 15 billion cell capsule, sprinkle 2 cap PO DAILY Tresiba FlexTouch U-100 100 unit/mL (3 mL) insulin pen 80 unit subcut BEDTIME oxycodone [OxyContin] 30 mg tablet,oral only,ext.rel.12 hr 1 tab PO BID ondansetron 4 mg tablet,disintegrating 4 mg PO Q8H PRN (Reason: nausea and vomiting) Qty: 7 0RF metoclopramide HCl [Reglan] 10 mg tablet 10 mg PO Q6H PRN (Reason: nausea and vomiting) Qty: 10 0RF fidaxomicin 200 mg tablet 200 mg PO BID 10 Days Qty: 20 0RF [place] [facility] [place]] (Call to establish and follow up with a primary care provider. If you already have a primary care provider, please follow up with them. ) [facility] [place]] (Call to establish and follow up with a primary care provider. If you already have a primary care provider, please follow up with them. ) [facility] [Provider Group] (Call to establish and follow up with a primary care provider. If you already have a primary care provider, please follow up with them. ) Interventions: ED Discharge Assessment Last Done: 06/28/22 09:48 Print Language: Tamazight
[2022-06-28 08:29] VITALS: BP 153/63; PULSE 86; RESP 14; TEMP 36.9; O2SAT 95
[2022-06-28 08:35] LABS: Anion Gap 20 (12-20); Blood Urea Nitrogen 19 mg/dL (9-16); Calcium 10.2 mg/dL (8.4-10.2); Carbon Dioxide 19 mmol/L (22-29); Chloride 98 mmol/L (96-108); Creatinine Clr Calc Pharmacy 104.5; Estimated Glomerular Filt Rate > 60; Glucose Random 276 mg/dL (60-115); Lipase 21 U/L (8-78); Potassium 5.1 mmol/L (3.3-5.1); Sodium 132 mmol/L (135-145)
[2022-06-28] MEDS: 0.9 % Sodium Chloride 1,000 ML 999 ML IV (09:06)
--- NOTE | 2022-06-28 09:18 | PC.NURSE ---
PT UNABLE TO PUT WEIGHT ON LEGS, IS REFUSING TO USE BEDPAN
--- NOTE | 2022-06-28 09:25 | PC.NURSE ---
PT IS REFUSING ANY TYPE OF CARE HAS BEEN OFFERED BED URIARTE SEVERAL TIME, STATES SHE IS UNABLE TO STAND, WAS A 4 PERSON ASSIST TO COMMODE THIS MORNING AND PT REFUSED TO PUT ANY WEIGHT ON LEGS. KEEPS TELLING STAFF TO GET OUT OF HER ROOM.
--- NOTE | 2022-06-28 10:01 | PC.NURSE ---
patient is very uncooperative patient is refusing all care reported to her nurse (chelsea)
--- NOTE | 2022-06-28 10:11 | PC.NURSE ---
amb transport back home around 11a, son aung called left vm
--- NOTE | 2022-06-28 12:35 | MHC.CM.ED ---
Received case management consult from Fanta AGUILAR. Patient came to the ER due to multiple complaints but doesn't want assistance from ER. Patient not interested in short term rehab and was discharged home. Patient is active with [facility]. Patient has ASSISTANT TODDLER TEACHER hours through [employer] and is active with [employer]. [employer] made aware by T/W that patient is in the ER and will be discharged home. Rika at [facility] will notify housekeeper caregiver about ER visit.
== END 2022-06-28 12:25 | disposition home or self-care (01) ==
PROVIDERS: Emergency Medicine; Emergency Provider Emergency Medicine; PCP Internal Medicine
DX: R11.2 Nausea with vomiting, unspecified (principal); M79.605 Pain in left leg; M79.604 Pain in right leg; F17.210 Nicotine dependence, cigarettes, uncomplicated; Z71.6 Tobacco abuse counseling; Z20.822 Contact with and (suspected) exposure to COVID-19; Z79.899 Other long term (current) drug therapy
CPT/HCPCS: 36415; 80048; 82947; 83690; 85025; 87635; 96374; 99284; J1885

== ENCOUNTER 2022-09-17 10:51 | Emergency (ER) | payer OTHER, SELFPAY ==
--- NOTE | ~2022-09-17 | CT_ITS ---
EXAMINATION: CT ABDOMEN AND PELVIS WITH CONTRAST CLINICAL INFORMATION: Right lower quadrant pain and vomiting COMPARISON: CT abdomen and pelvis 12/30/2021 TECHNIQUE: Multidetector volumetric images were obtained from the superior aspect of the liver through the pubic symphysis following administration 85 mL of Omnipaque 350 intravenous contrast. Sagittal and coronal reformatted images were obtained on the technologist's workstation. Oral contrast: No This CT examination was performed using dose optimization techniques as appropriate, variously including the following: *Automated exposure control *Adjustment of mA and/or kV according to patient size (this includes techniques or standardized protocols for targeted exams where dose is matched to indication/reason for exam; i.e. extremities or head) *Use of iterative reconstruction technique DLP: 1141 mGy-cm FINDINGS: LUNG BASES: Minimal left basilar dependent atelectasis. LIVER, GALLBLADDER, AND BILIARY TREE: The liver is normal in size, shape, and attenuation. No focal hepatic lesion or biliary ductal dilatation is present. The gallbladder is unremarkable with no evidence of radiopaque gallstones, gallbladder wall thickening, or obvious pericholecystic inflammatory changes. PANCREAS: Unremarkable. SPLEEN: Unremarkable. ADRENAL GLANDS: Unremarkable. KIDNEYS AND URETERS: 1.8 cm simple left upper pole renal cyst, not significantly changed. No further follow-up recommended. No additional renal lesions. Symmetric nephrograms. No hydronephrosis or renal calculi. BLADDER: Unremarkable. GASTROINTESTINAL TRACT: Sigmoid diverticulosis. No evidence of acute diverticulitis. Small moderate colonic stool burden. No dilated bowel loops. No bowel wall thickening. Appendix is not visualized. No inflammatory changes at the base of the cecum. No free air or ascites. ABDOMINAL WALL: No significant hernia is appreciated. Multiple small soft tissue nodular foci in the ventral abdominal wall, likely injection site related. Correlate clinically. LYMPH NODES: No lymphadenopathy. VASCULAR: Normal caliber abdominal aorta. Mild/moderate vascular calcifications. PELVIC VISCERA: The uterus and adnexa are unremarkable. OSSEOUS STRUCTURES: No acute fracture or suspicious osseous lesion. Mild multilevel degenerative disc disease in the thoracolumbar spine. Right worse than left hip joint osteoarthritis. CT/CT abdomen pelvis w IV con IMPRESSION: 1. No acute intra-abdominal process. 2. Sigmoid diverticulosis. No evidence of acute diverticulitis.
[2022-09-17 11:00] VITALS: BP 173/55; PULSE 99; RESP 21; TEMP 36.8; O2SAT 96; BMI 45.1
--- NOTE | 2022-09-17 11:03 | PC.NURSE ---
52 y/o F BIBA from home pw multiple complaints, most notable for n/v x2 days and mid back pain. denies other symptoms, VSS, awaiting recs
--- OUTSIDE RECORDS SUMMARY | 2022-09-17 11:12 | XMS_ITS | Continuity of Care Document ---
:1970 Author Organization [facility] Address [address] [place] [address]- Care Team Providers Name Role Phone Sobia Khalil DO Primary Care Physician Encounter [facility] [place](s): 07/01/22 - 07/01/[address] [address]- Discharge Disposition: A-D/C Walkout Attending Physician: Not on Staff, Attending MD Admitting Physician: Not on Staff, Admitting MD Referring Physician: Not on Staff, Referring MD Allergies, Adverse Reactions, Alerts Substance Reaction Severity Status acetaminophen extremely itchy Active shellfish1 Active Tylenol Active Fish2 Active MetFORMIN (Eqv-Glumetza) Active 1patient reports itchy/tingling [id number] reports itchy/tingling throat Immunizations Given and Recorded [...] 15:30:00 EDT, Route to Pharmacy Electronically, [id number], Partial fill upon patient request if the [...] EDT, ; Start Date: 02/08/22 Status: OrderedNystop 202622 u/gm powder 1 application, Topically, 2 times [...] Confirmed Active Vitamin D deficiency Confirmed Active Vital Signs Most recent to oldest [Reference Range]: 1 Height 173 cm (07/01/22 9:01 AM) Oxygen Saturation [94-100 %] 94 % (07/01/22 9:01 AM) Pulse Rate [55-90 bpm] 101 bpm *H* (07/01/22 9:01 AM) Blood Pressure [90-138/55-84 mm Hg] 146/67 mm Hg *H* (07/01/22 9:01 AM) Respiratory Rate [16-30 br/min] 20 br/min (07/01/22 9:01 AM) Temperature [96.8-100.4 DegF] 98 DegF (07/01/22 9:01 AM) Mode of Delivery (Oxygen) Room air (07/01/22 9:01 AM) Blood pressure sites Arm, right (07/01/22 9:01 AM) Temperature Route Oral (07/01/22 9:01 AM) Social History Social History Type Response Smoking Status Never (less than 100 in life time) entered on: 05/13/22 Sex Patient Care team information PersonnelName: Sobia Khalil DO Address: Address: [address] [place] [address] [place] [address]
--- OUTSIDE RECORDS SUMMARY | 2022-09-17 11:13 | XMS_ITS | Continuity of Care Document ---
:1970 Author Organization [facility] Address [address] [place] [address]- Care Team Providers Name Role Phone Sobia Khalil DO Primary Care Physician Encounter [facility] Date(s): 07/01/22 - 07/01/[address] [address]- Discharge Disposition: A-D/C Walkout Attending Physician: Not on Staff, Attending MD Admitting Physician: Not on Staff, Admitting MD Referring Physician: Not on Staff, Referring MD Allergies, Adverse Reactions, Alerts Substance Reaction Severity Status acetaminophen extremely itchy Active shellfish1 Active Tylenol Active Fish2 Active MetFORMIN (Eqv-Glumetza) Active 1patient reports itchy/tingling [id number] reports itchy/tingling throat Immunizations Given and Recorded [...] 15:30:00 EDT, Route to Pharmacy Electronically, [facility] [id number], Partial fill upon patient request if the [...] EDT, ; Start Date: 02/08/22 Status: OrderedNystop 202077 u/gm powder 1 application, Topically, 2 times [...] Most recent to oldest [Reference Range]: 1 Weight 97.5 kg (07/01/22 4:12 AM) Oxygen Saturation [94-100 %] 100 % (07/01/22 4:12 AM) Pulse Rate [55-90 bpm] 125 bpm *H* (07/01/22 4:12 AM) Blood Pressure [90-138/55-84 mm Hg] 168/99 mm Hg *H* (07/01/22 4:12 AM) Respiratory Rate [16-30 br/min] 20 br/min (07/01/22 4:12 AM) Temperature [96.8-100.4 DegF] 98.2 DegF (07/01/22 4:12 AM) Mode of Delivery (Oxygen) Room air (07/01/22 4:12 AM) Temperature Route Oral (07/01/22 4:12 AM) Weight Obtained Via Patient/family stated (07/01/22 4:12 AM) Social History Social History Type Response Smoking Status Never (less than 100 in life time) entered on: 05/13/22 Sex Patient Care team information PersonnelName: Sobia Khalil DO Address: Address: [address] [place] [address] [address] [place] [address]
--- OUTSIDE RECORDS SUMMARY | 2022-09-17 11:14 | XMS_ITS ---
:1970 External Reference #:[id number] Author Care Team Providers Name Role Phone [facility] Referring Provider [phone] Allergies None recorded. Medications Name Status Start Date Stop Date ? ? amlodipine 10 mg tablet Active ? Not avai lable amlodipine 5 mg tablet Active ? Not avail able amoxicillin 500 mg-potassium clavulanate 125 mg tablet Active ? Not available amoxicillin 875 mg-potassium clavulanate 125 mg tablet Active ? Not available TAKE 1 TABLET BY MOUTH TWO TIMES A DAY Antifungal (clotrimazole) 1 % topical cream Active ? Not available aspirin 81 mg tablet,delayed release Active ? Not available BD Ultra-Fine Sachi Pen Needle 32 gauge x / Active ? Not available USE FOUR TIMES [...] mg/mL subcutaneous syringe Active ? Not available ergocalciferol (vitamin D2) 1,250 mcg (50,000 unit) capsule Acti ve ? Not available ferrous sulfate 325 mg (65 mg iron) tablet,delayed release Activ e ? Not available finasteride 5 mg tablet Active ? Not avai lable Flovent HFA 110 mcg/actuation aerosol inhaler Active ? Not available fluticasone propionate 50 mcg/actuation nasal Active ? Not available spray,suspension FreeStyle [place] Lite kit Active ? Not a vailable FreeStyle Lancets 28 gauge Active ? Not a vailable FreeStyle Lite Strips Active ? Not availa ble gabapentin 300 mg capsule Active ? Not av ailable hydromorphone 2 mg tablet Active ? Not av ailable lamotrigine 100 [...] 10 mg tablet Active ? Not available metronidazole 500 mg tablet Active ? Not available morphine 15 mg immediate release tablet Active ? Not available TAKE 1 TABLET BY MOUTH EVERY 4 HOURS NEEDED FOR PAIN nabumetone 500 mg tablet Active ? Not rené ilable nicotine 21 mg/24 hr daily transdermal patch Active ? Not available Novolog FlexPen U-100 Insulin aspart 100 unit/mL (3 mL) Active ? Not available subcutaneous Nystop 100,000 unit/gram topical powder Active ? Not available omeprazole 20 mg capsule,delayed release Active ? Not available ondansetron 4 mg disintegrating tablet Active ? Not available ondansetron HCl 4 mg tablet Active ? [...] resistant,extended release Active ? Not available OxyContin 40 mg tablet,crush resistant,extended release Active ? Not [...] intravenous solution Active ? Not available vancomycin 125 mg capsule Active ? Not av ailable vancomycin 5 gram intravenous solution Active ? Not available vancomycin 500 mg intravenous solution Active ? Not available vitamin A 10,000 unit capsule Active ? No t available Vitamin C 500 mg tablet Active ? Not avai lable Vitamin D3 50 mcg (2,000 unit) capsule [...] ? Main - Fingerstick, Blood mg/dl Insted: [address] [place] [address] 04/21/2022 Glucose, ? Blood Glucose: 304 ? ? Main - Fingerstick, Blood mg/dl Insted: [address] [place] [address] 04/21/2022 Urinalysis, ? Leukocytes neg ? ? Main - Dipstick Insted: [address] [place] [address] ? ? ? Nitrite negative ? ? Main - Insted: [address] [place] [address] ? ? ? Protein neg ? ? Main - Insted: [address] [place] [address] ? ? ? Ph 6 ? ? Main - Insted: [address] [place] [address] ? ? ? Blood neg ? ? Main - Insted: [address] [place] [address] ? ? ? Specific 1.000 ? ? Main - [place] Insted: [facility] ? ? ? Ketone neg ? ? Main - Insted: [address] [place] [address] ? ? ? Glucose neg ? ? Main - Insted: [address] [place] [address] ? ? ? Appearance clear ? ? Main - Insted: [address] [place] [address] ? ? ? Color pale yellow ? ? Main - Insted: [address] [place] [address] Past Encounters Encounter Date Diagnosis Provider 06/24/2022 Diarrhea Roxane Crooks MD: [address] [place] [phone], Ph. 04/21/2022 Retention of Urine; Diabetes Sandie gaines MD: [address] [place] [address] [phone], Ph. 02/07/2022 Nausea and Vomiting Cesar Gomez MD: [address] [place] [address] [phone], Ph. 01/07/2022 Low Blood Pressure Carla Maza MD: [address] [place] [address] 0 [phone], Ph. 12/27/2021 Cesar Gomez MD: [address] [place] [address] 0 [phone], Ph. Social History None recorded. Vaccine List [...]
--- OUTSIDE RECORDS SUMMARY | 2022-09-17 11:14 | XMS_ITS | Continuity of Care Document ---
:1970 Author Organization [facility] Address [address] [place] [address]- Care Team Providers Name Role Phone Evelyn Bui MD Primary Care Physician Encounter [facility] Date(s): 07/23/22 - 07/23/[address] [address]- Discharge Disposition: A-D/C Home Attending Physician: Radha MELCHOR, Shaun Dewey Admitting Physician: Shaun Garcia MD Referring Physician: Not on Staff, Referring MD Allergies, Adverse Reactions, Alerts Substance Reaction Severity Status acetaminophen extremely itchy Active shellfish1 Active Tylenol Active Fish2 Active MetFORMIN (Eqv-Glumetza) Active 1patient reports itchy/tingling [id number] reports itchy/tingling throat Immunizations Given and Recorded [...] 15:30:00 EDT, Route to Pharmacy Electronically, [facility] [id number], Partial fill upon patient request if the [...] EDT, ; Start Date: 02/08/22 Status: OrderedNystop 785596 u/gm powder 1 application, Topically, 2 times [...] Range]: Oxygen Saturation [94-100 %] 97 % 99 % 96 % (07/23/22 7:47 PM) (07/23/22 5:16 PM) (07/23/22 2:4 1 PM) Pulse Rate [55-90 bpm] 84 bpm 70 bpm 96 bpm (07/23/22 7:47 PM) (07/23/22 5:16 PM) *H* (07/23/22 2:41 PM ) Blood Pressure [90-138/55-84 mm 130/79 mm Hg 129/59 mm Hg 127/55 mm Hg Hg] (07/23/22 7:47 PM) (07/23/22 5:16 PM) (07/23/22 2:4 1 PM) Respiratory Rate [16-30 br/min] 16 br/min 16 br/min 20 br/min (07/23/22 7:47 PM) (07/23/22 5:16 PM) (07/23/22 2:4 1 PM) Temperature [96.8-100.4 DegF] 98.3 DegF 98.1 DegF 97 .8 DegF (07/23/22 7:47 PM) (07/23/22 5:16 PM) (07/23/22 2:4 1 PM) Mode of Delivery (Oxygen) Room air Room air Room a ir (07/23/22 7:47 PM) (07/23/22 5:16 PM) (07/23/22 2:4 1 PM) Blood pressure sites Arm, left Arm, right Arm, right (07/23/22 7:47 PM) (07/23/22 5:16 PM) (07/23/22 2:4 1 PM) Temperature Route Oral Oral Oral (07/23/22 7:47 PM) (07/23/22 5:16 PM) (07/23/22 2:4 1 PM) Social History Social History Type Response Smoking Status Never (less than 100 in life time) entered on: 05/13/22 Sex Patient Care team information PersonnelName: Evelyn Bui MD Address: Address: [address] [place], [place] [address]
--- OUTSIDE RECORDS SUMMARY | 2022-09-17 11:14 | XMS_ITS | Continuity of Care Document ---
:1970 Author Organization [facility] Address [address] [place] [id number] Care Team Providers Name Role Phone Hao MELCHOR, Evelyn Ackerman Primary Care Physician Encounter [facility] Date(s): 08/29/22 - 09/02/[address] [id number] Discharge Disposition: A-D/C Home Attending Physician: Jonny Chin MD Admitting Physician: Maged Jefferson MD Referring Physician: Franck Pena Allergies, Adverse Reactions, Alerts Substance Reaction Severity Status acetaminophen extremely itchy Active Tylenol Active MetFORMIN (Eqv-Glumetza) Active shellfish1 Active Fish2 Active 1patient reports itchy/tingling [id number] reports itchy/tingling throat Immunizations Given and Recorded [...] Daily, # 30 tablet, 0 Refills, Maintenance, 08/14/22 23:26:00 EST, Tablet, Partial fill upon patient request if the prescription is for a schedule II opioid drug. Start Date: 08/14/22 Status: OrderedamLODIPine 10 mg oral tablet 10 mg, Tablet, By Mouth, 09/02/22 9:00:00 EST Start Date: 09/02/22 Stop Date: 09/02/22 Status: CompletedAspirin Low Dose 81 mg oral delayed release tablet 1 tablet = 81 mg, By Mouth, Daily, # 30 tablet, 0 Refills, Maintenance, 08/14/22 23:26:00 EST, EC Tablet, Partial fill upon patient request if the prescription is for a schedule II opioid drug. Start Date: 08/14/22 Status: OrderedCulturelle Health and Wellness oral capsule 1 capsule, By Mouth, 2 times a day, Maintenance, 02/08/22 10:59:00 EDT, ; Start Date: 02/08/22 Status: OrderedDOK sodium 100 mg oral capsule 1 capsule = 100 mg, By Mouth, Daily, PRN as needed for constipation, 0 Refills, Maintenance, 08/29/22 16:57:00 EST, Partial fill upon patient request if the prescription is for a schedule II opioid drug. Start Date: 08/29/22 Status: Orderedfinasteride 5 mg oral tablet 1 tablet = 5 mg, By Mouth, Daily, # 30 tablet, 0 Refills, Maintenance, 08/14/22 23:25:00 EST, Tablet, Partial fill upon patient request if the prescription is for a schedule II opioid drug. Start Date: 08/14/22 Status: Orderedfluticasone 50 mcg/inh nasal spray 1 sprays, Nares, Both, Daily, 0 Refills, Maintenance, 08/14/22 23:20:00 EST, [place], Partial fill upon patient request if the prescription is for a schedule II opioid drug. Start Date: 08/14/22 Status: Orderedgabapentin 300 mg oral capsule 900 mg, 3, capsule, By Mouth, 3 times a day, # 270 capsule, Refills 0, Maintenance, 08/14/22 23:25:00 EST, Partial fill upon patient request if the prescription is for a schedule II opioid drug. Start Date: 08/14/22 Status: Orderedgabapentin 300 mg oral capsule 900 mg, Capsule, By Mouth, 09/02/22 9:00:00 EST Start Date: 09/02/22 Stop Date: 09/02/22 Status: Completedlamotrigine 100 mg oral tablet 100 mg, 1, tablet, By Mouth, Every 12 hours, # 60 tablet, Refills 0, Tot. Refills 0, Maintenance, 08/19/22 10:43:00 EST, Route to Pharmacy Electronically, [id number], Partial fill upon patient request if the prescription is for a schedule... Start Date: 08/19/22 Status: Orderedloratadine 10 mg oral tablet 10 mg, 1, tablet, By Mouth, Daily, Maintenance, 07/06/21 16:33:00 EDT Start Date: 07/06/21 Status: OrderedLORazepam 2 mg oral tablet 1 tablet = 2 mg, By Mouth, 3 times a day, 0 Refills, Maintenance, 08/14/22 23:23:00 EST, Tablet, Partial fill upon patient request if the prescription is for a schedule II opioid drug. Start Date: 08/14/22 Status: OrderedMiraLax oral powder for reconstitution = 17 Gm, By Mouth, Daily, PRN Constipation, dissolve in water before taking, # 255 Gm, 0 Refills, Maintenance, 06/23/22 8:09:00 EDT, REC Powder, Partial fill upon patient request if the prescription isfor a schedule II opioid drug. Start Date: 06/23/22 Status: OrderedNovoLOG FlexPen 100 units/mL injectable solution 4-12 UNITS, Subcutaneous Injection, 3 times a day before meals, 150-199= 4 units 200-249= 6 units 250-299= 8 units 300-349= 10 units 350-399= 12 units Call MD <70 or >400, Maintenance, 02/08/22 10:59:00 EDT, ; Start Date: 02/08/22 Status: OrderedNystop [id number] u/gm powder 1 application, Topically, 2 times a day, # 15 Gm, 0 Refills, Maintenance, 08/14/22 23:22:00 EST, Powder, Partial fill upon patient request if the prescription is for a schedule II opioid drug. Start Date: 08/14/22 Status: Orderedondansetron 4 mg oral tablet, disintegrating 1 tablet = 4 mg, By Mouth, Every 8 hours, PRN as needed for nausea/vomiting, 0 Refills, Maintenance,08/14/22 23:20:00 EST, DIS Tablet, Partial fill upon patient request if the prescription is for a schedule II opioid drug. Start Date: 08/14/22 Status: Orderedoxybutynin 10 mg/24 hr oral tablet, extended release 1 tablet = 10 mg, By Mouth, Daily, # 30 tablet, 0 Refills, Maintenance, 06/07/22 14:38:00 EDT, ER Tablet, Partial fill upon patient request if the prescription is for a schedule II opioid drug. Start Date: 06/07/22 Status: OrderedoxyCODONE 20 mg oral tablet 1 tablet = 20 mg, By Mouth, Every 5 hours, PRN Pain , Severe, Max 5/Day, 0 Refills, Maintenance, 08/14/22 23:21:00 EST, Tablet, Partial fill upon patient request if the prescription is for a schedule II opioid drug. Start Date: 08/14/22 Status: OrderedoxyCODONE 5 mg oral tablet 20 mg, Tablet, By Mouth, Every 5 hours, PRN for Pain , Severe, Routine, 09/02/22 8:08:00 EST Start Date: 09/02/22 Stop Date: 09/02/22 Status: DiscontinuedOxyCONTIN 40 mg oral tablet, extended release 40 mg, 1, tablet, By Mouth, Every 12 hours, Refills 0, Tot. Refills 0, Maintenance, 08/14/22 23:21:00 EST, Partial fill upon patient request if the prescription is for a schedule II opioid drug. Start Date: 08/14/22 Status: OrderedOxyCONTIN 40 mg oral tablet, extended release 40 mg, ER Tablet, By Mouth, 09/02/22 8:00:00 EST Start Date: 09/02/22 Stop Date: 09/02/22 Status: Completedpantoprazole 40 mg oral delayed release tablet 1 tablet = 40 mg, By Mouth, Daily, # 30 tablet, 0 Refills, Maintenance, 08/14/22 23:25:00 EST, EC Tablet Start Date: 08/14/22 Status: OrderedProAir HFA 90 mcg/inh inhalation aerosol 2 puffs, Inhalation, PRN Wheezing/Shortness of Breath, every 4-6 hours, Maintenance, 04/12/22 13:12:00 EDT, ; Start Date: 04/12/22 Status: Orderedpropranolol 120 mg oral capsule, extended release 1 capsule = 120 mg, By Mouth, Daily, # 90 capsule, 0 Refills, Maintenance, 08/14/22 23:25:00 EST, CRCapsule, Partial fill upon patient request if the prescription is for a schedule II opioid drug. Start Date: 08/14/22 Status: Orderedpropranolol 60 mg oral capsule, extended release 120 mg, CR Capsule, By Mouth, 09/02/22 9:00:00 EST Start Date: 09/02/22 Stop Date: 09/02/22 Status: Completedrosuvastatin 40 mg oral tablet 1 tablet = 40 mg, By Mouth, Daily at bedtime, 0 Refills, Maintenance, 08/14/22 23:24:00 EST, Tablet,Partial fill upon patient request if the prescription is for a schedule II opioid drug. Start Date: 08/14/22 Status: OrderedTresiba FlexTouch 100 units/mL subcutaneous solution = 30 units, Subcutaneous Injection, Daily at bedtime, Maintenance, 02/08/22 10:50:00 EDT, ; Start Date: 02/08/22 Status: OrderedVitamin D2 50,000 intl units (1.25 mg) oral capsule 1 capsule = 50,000 International_Units, By Mouth, Every 7 days, Monday, Maintenance, 02/08/22 10:59:00 EDT, ; Start Date: 02/08/22 Status: OrderedWellbutrin XL 150 mg/24 hours oral tablet, extended release 3 tablet = 450 mg, By Mouth, Every 24 hours, 0 Refills, Maintenance, 08/29/22 16:53:00 EST, Partial fill upon patient request if the prescription is for a schedule II opioid drug. Start Date: 08/29/22 Status: Orderedzolpidem 10 mg oral tablet 1 tablet = 10 mg, By Mouth, Daily at bedtime, 0 Refills, Maintenance, 08/14/22 23:24:00 EST, Tablet,Partial fill upon patient request if the prescription is for a schedule II opioid drug. Start Date: 08/14/22 Status: Ordered Problem List Condition Confirmation Course Effective Dates Status Health I nformant Status Allergic rhinitis Confirmed Active Anxiety disorder Confirmed Active Weakness Confirmed Active Bipolar illness Confirmed Active Cellulitis Confirmed Active Chronic back pain Confirmed Active CKD (chronic kidney Confirmed Active disease) Depressive disorder Confirmed Active Diabetes Confirmed Active FSGS (focal segmental Confirmed Active [...] Active Vitamin D deficiency Confirmed Active Results Radiology Reports Exam Date Time Procedure Performing Provider Status 09/01/22 10:00 AM MRI Lumbar Spine W/O Contrast Briana Blackman ; Auth (Verified) Notes:(MRI Lumbar Spine W/O Contrast) Reason For Exam: Low back pain, cauda equina syndrome suspected;Other:RESULT: MRI Lumbar Spine W/O Contrast MRI Lumbar Spine W/O Contrast INDICATION: Reason: Other:; Low back pain, cauda equina syndrome suspected; Clinical Question(s): Cord Cauda Equina Compression; Special Instructions: has to be done with Anesthesia-coordinate with anesthesia at EXT: [id number] Cruz; Order Comment: Please see Reference Text for complete list of cont raindications Cord/Cauda Equina Compression TECHNIQUE: A limited MRI examination of the lumbar spine was performed utilizing noncontrast sagittal T1, sagittal T2, and sagittal STIR images which were checked by the inpatient neuroradiologist. COMPARISON: 08/18/2022 FINDINGS: NUMBERING: The study assumes 5 [id number] lumbar type vertebral bodies. ALIGNMENT, VERTEBRAE, MARROW, AND DISCS: A mild leftward curvature of the lumbar spine is again noted. No new subluxation is noted on the sagittal images. No new marrow. CONUS: The conus is normal in signal and contour, with normal level of termination at L1. No epidural fluid collection or cauda equina compression. PARASPINAL TISSUES: Fatty atrophy of the posterior paraspinal musculature. DETAILED FINDINGS BY LEVEL: A concentric disc-osteophyte complex at L3-L4 is again noted, and a right subarticular disc extrusion extending into the right lateral recess of L4 is probably unchanged based on the sagittal images. IMPRESSION: No evidence of cauda equina compression. A right subarticular disc extrusion extending inferiorly at L3-L4 is probably unchanged from the study dated 08/18/2022 based on the sagittal images. WSN: [id number] Ordering Physician: Sarah Medina Dictated By: Yovani Cole MD Dictated Date/Time: 09/01/22 10:39 a Reviewed By: Yovani Cole MD Signed By: Yovani Cole MD Signed Date/Time: 09/01/22 10:39 am Transcribed By: LESLEE Transcribed Date/Time: 09/01/22 10:26 am Exam Date Time Procedure Performing Provider Status 08/22/22 6:[address] Lumbar Spine W/O Contrast Stack Alaina; Patrick h (Verified) Notes:(CT Lumbar Spine W/O Contrast) Reason For Exam: Spine fracture, lumbar, traumatic;Other:RESULT: CT Lumbar Spine W/O Contrast CT Lumbar Spine W/O Contrast Hx of Present Illness: SECTION 12; Reason: Other:; Spine fracture, lumbar, traumatic; Clinical Question(s): Fracture Dislocation; Order Comment: CLINICAL QUESTION: Fracture/Dislocation TECHNIQUE: Thin section axial images were acquired through the lumbar spine. Bone and soft tissue algorithms were reconstructed along with coronal and sagittal reformats. Weight-based protocol using automatic tube modulation was used to optimize exposure parameters. CTDIvol Body: 60.10 mGy, DLP Body: 1885 mGy*cm. COMPARISON: 08/16/2022. FINDINGS: Biological Scientist View Findings, Lines and Tubes: None. Spine: No fractures or bone lesion. There is scoliotic curvature of the spine which is levoconvex L3-L4. Minimal L2-L3 retrolisthesis. Multilevel loss of disc height most severe at L3-L4. Soft tissues: No acute abnormality in the paravertebral soft tissues. Eccentric calcified aortoiliac atherosclerosis. Visualized kidneys appear unremarkable. Mild central canal narrowing at L2-L3 due to disc osteophyte complex. Moderate central canal narrowing at L3-L4 due to disc osteophyte complex. No significant foraminal narrowing. IMPRESSION: No acute fracture or subluxation. Degenerative changes as described above. I have personally reviewed the images and I agree with this report. WSN: [id number] Ordering Physician: Franck Howard Dictated By: Ronny[Radiology] Heidi MELCHOR Dictated Date/Time: 08/22/22 7:18 am Reviewed By: Irma Ramires MD Signed By: Irma Ramires MD Signed Date/Time: 08/22/22 7:23 am Transcribed By: LESLEE Transcribed Date/Time: 08/22/22 6:55 am Vital Signs Most recent to oldest 1 2 3 [Reference Range]: Height 172.7 cm 172.7 cm 172.7 cm (09/02/22 6:16 AM) (09/01/22 8:48 PM) (09/01/22 5:35 AM) Weight 124.8 kg (08/30/22 2:25 PM) Oxygen Saturation [94-100 97 % 96 % 98 % %] (09/02/22 6:16 AM) (09/01/22 8:48 PM) (09/01/22 10:30 AM) Pulse Rate [55-90 bpm] 75 bpm 75 bpm 68 bpm (09/02/22 9:00 AM) (09/02/22 6:16 AM) (09/01/22 8:48 PM) Body Mass Index 41.84 kg/m2 [18.5-24.99 kg/m2] *>HHI* (08/30/22 2:25 PM) Blood Pressure 117/83 mm Hg 117/83 mm Hg 135/57 mm Hg [90-138/55-84 mm Hg] (09/02/22 9:00 AM) (09/02/22 9:00 AM) (08/18 03/09 6:16 AM) Respiratory Rate [16-30 16 br/min 16 br/min 16 br/mi n br/min] (09/02/22 9:47 AM) (09/02/22 8:59 AM) (09/02/22 8:59 AM) Temperature [96.8-100.4 97.9 DegF 98 DegF 97.8 Deg F DegF] (09/02/22 6:16 AM) (09/01/22 8:48 PM) (09/01/22 1:00 PM) Liters per Minute 6 L/min (09/01/22 10:00 AM) Mode of Delivery (Oxygen) Room air Room air Room a ir (09/02/22 6:16 AM) (09/01/22 8:48 PM) (09/01/22 1:00 PM) Blood pressure sites Arm, right Arm, left Arm, right (09/02/22 6:16 AM) (09/01/22 8:48 PM) (09/01/22 1:00 PM) Temperature Route Oral Oral Oral (09/02/22 6:16 AM) (09/01/22 8:48 PM) (09/01/22 1:00 PM) Dry Weight 123 kg (08/30/22 2:25 PM) Weight Obtained Via Bed scale (08/30/22 2:25 PM) Dry Weight Obtained Via Patient/family stated (08/30/22 2:25 PM) Social History Social History Type Response Smoking Status Never (less than 100 in life time) entered on: 05/13/22 Sex Admission evaluation note Adam MELCHOR, Sarah Romero: PERFORM Event Display: Admission Note Authored Date: [id number] Patient: ??BARB CAVANAUGH ? Age:??52 Years?Sex:??Female?:??1970?? Chief Complaint/Reason for Consultation SECTION 12 Suicidal ideation, fall History of Present Illness This is a 52-year-old female with a past medical history of insulin-dependent diabetes mellitus, chronic back pain, bipolar disorder who presented to the emergency room on 08/22??for suicidal ideation.??She has been in the ED for at least 7 days now. ??Prior to presentation, patient called a suicide hotline reporting that she did not want to live and plan to run into traffic. ??She has an acute on chronic back pain, she is nonambulatory, only able to pivot to bedside commode and her pain has been uncontrolled despite high doses of pain meds that she is currently on. ??Because of which she says,?? I do not want to live anymore . ??Patient was supposed to be discharged from the ER to an inpatient psych unit however dispo has been difficult given her poor mobility. ??Hence, she has been admitted to the inpatient unit right now. Patient tells me that she has 10/10 pain on her lower back, associated with numbness in her right lower extremity, intermittent bowel and bladder incontinence as well as saddle anesthesia. ??She has had MRI done in the past, last month which was negative for cord compression. ??She needs MRI done with anesthesia. Denies any fevers chills abdominal pain nausea vomiting diarrhea or any other complaints. Vitals???afebrile, hemodynamically stable and saturating 96% on room air. Labs???no leukocytosis, hemoglobin/hematocrit is 12.2/37.2 and platelet count is 306. ??Serum sodium was 134, potassium was hemolyzed, chloride/bicarb 98/23, BUN/creatinine 23/1. ??She got a CT L-spine at presentation given fall that was negative for acute fracture/subluxation. She is currently on OxyContin 40 mg every 12 hours standing, oxycodone 20 mg every 6 hours as needed in addition to gabapentin 900 mg 3 times a day however states that this is already her home dose and it is not helping her much with pain at all. Admitted for suicidal ideation, poorly controlled acute on chronic back pain associated with signs of cord compression. ??Rule out cord compression Review of Systems GEN: ??Denies any issues with sleep, endorses difficulty ambulating,??only able to pivot??to bedside commode. HEENT: Denies runny nose, dry mouth, ??sore throat or changes to his vision. CV: Denies CP, palpitations, edema or orthopnea. PULM: Denies any SOB, wheezing, cough. ABD: Denies any abdominal pain, N/V/D, heartburn. ??Denies any changes to bowel habits or stool character.?? : Denies dysuria, polyuria, or hematuria. EXT: Positive for lower back pain associated with the saddle anesthesia, bowel and bladder incontinence and right leg numbness PSYCH: Denies??suicidal ideation at this point however sees??I cannot live with pain like this Objective Vital Signs?? Temperature: 97.6 DegF (08/29/22 11:32:00) Temperature Route: Oral (08/29/22 11:32:00) Pulse Rate: 66 bpm (08/29/22 11:32:00) Respiratory Rate: 18 br/min (08/29/22 15:07:00) Vented: No (08/29/22 10:00:00) Systolic Blood Pressure: 115 mm Hg (08/29/22 11:32:00) Diastolic Blood Pressure: 80 mm Hg (08/29/22 11:32:00) Blood pressure sites: Arm, right (08/29/22 11:32:00) Mean Arterial Pressure: 92 mm Hg (08/29/22 11:32:00) Pulse Pressure: 35 mm Hg (08/29/22 11:32:00) Oxygen Saturation: 96 % (08/29/22 11:32:00) Mode of Delivery (Oxygen): Room air (08/29/22 11:32:00) Early Warning Score: 3 (08/29/22 16:37:53) ? Intake/Output? No Data Available ? Physical Exam ? General Appearance: Patient was watching television comfortably prior to me entering the room however??once I started talking the patient, she started complaining of 06/27??back pain.?? Cardiovascular: RRR S1 and S2 heard with no M/R/G. No JVD. Respiratory: ??Breath sounds clear to auscultation bilaterally. No wheezing. Good air movement throughout both lungs. GI: Soft. Nontender and nondistended. Normal bowel sounds present throughout abdomen.?? MS: Positive for tenderness to palpation??in the??lumbosacral area???midline.?? Left lower extremity strength is??5/5, right lower extremity strength??is 4/5, sensation is preserved in left lower extremity,??seems to have decreased sensation to??touch/pinprick in right lower extremity. ??Preserved sensation in bilateral upper extremities.?? Saddle anesthesia present Neuro: ??No slurred speech.?Left lower extremity strength is??5/5, right lower extremity strength??is 4/5, sensation is preserved in left lower extremity,??seems to have decreased sensation to??touch/pinprick in right lower extremity. ??Preserved sensation in bilateral upper extremities.?? Saddle a nesthesia present Psych: Alert and oriented x3. ??Teary-eyed with pain Lines: Peripheral IV in place.?? Assessment/Plan Diagnoses Back pain ??(M54.9) Suicidal ideation ??(R45.851) ?? Assessment:??This is a 52-year-old female with a past medical history of insulin-dependent diabetesmellitus, chronic back pain, bipolar disorder who presented to the emergency room on 08/22 for suicidal ideation. She has been in the ED for at least 7 days now. Prior to presentation, patient called a suicide hotline reporting that she did not want to live and plan to run into traffic. She has an acute on chronic back pain, she is nonambulatory, only able to pivot to bedside commode and her pain has been uncontrolled despite high doses of pain meds that she is currently on. Because of which she says, I do not want to live anymore . Patient was supposed to be discharged from the ER to an inpatient psych unit however dispo has been difficult given her poor mobility. Hence, she has been admitted tothe inpatient unit right now. ?? Admitted for suicidal ideation, poorly controlled acute on chronic back pain associated with signs of cord compression. Rule out cord compression ?? Back pain (M54.9):??Patient is complaining of acute on chronic??back pain, 06/27, not finding relief with home dose of oxycodone 10, as needed oxycodone??as well as gabapentin. She is allergic to Tylenol,??I placed acute pain management consult, they will see her in the morning. Previously as well, she was seen by??pain management who recommended Dilaudid BIOFUELS MANAGER??but she says it was not helpful. Despite being on high doses of opioids,??patient states that her pain is unrelieved. I discussed with covering??provider at pain management service, they shall see her in the morning however for now, recommended Dilaudid 1 mg every 3 hours??as needed for severe pain in addition to??ibuprofen 600 mg 3 times daily as needed for??moderate pain. DC OxyContin/oxycodone??in order to??avoidopioid overdose. Narcan as needed??for signs of opiate overdose Continue home dose of gabapentin Patient states that she is nonambulatory at home, only able to pivot??to bedside commode. She tellsme that she has saddle anesthesia, right lower extremity numbness??as well as urinary and bladder incontinence. She has had MRIs in the past and has been ruled out for cord compression however given??her presenting symptoms, she will??need another MRI.??She needs anesthesia for MRI. I discussed??with??anesthesia provider at [facility] as well as Dr. Cruz from radiology??to arrange??the MRI. Order has been placed,??will be done tomorrow. Monitor for any change in neuro symptoms Neurochecks every 4 hours If any worsening of her neurologic symptoms we will reach out to neurosurgery for more urgent evaluation Will need physical therapy??post??MRI ?? Suicidal ideation (R44.050):??Continue constant observation.??Suicide precautions. Psych consult requested.?? Eventually need dispo,??she was in the ED for several days??without??dispo plan, will request inpatient case management evaluation ?? Management of other chronic medical conditions is as follows? Diabetes???continue home dose of Lantus 30 unitsas well as sliding scale coverage, POC ACH S. Overactive bladder???on oxybutynin. Also on Flomax and finasteride, unclear indication Hyperlipidemia???continue rosuvastatin GERD???continue PPI Continue home dose of loratadine Hypertension???continue home dose of propranolol, amlodipine Bipolar disorder???continue bupropion, lamotrigine. As needed lorazepam, Zolpidem as needed nightly for insomnia ?? VTE Prophylaxis:??Obese female,??nonambulatory,??moderate??VTE risk, will order subcutaneous Lovenox ?VTE Prophylaxis Assessment:??VTE Prophylaxis Ordered ?? Code Status:??Patient is full code. ?Order Code Status:??Code Status Ordered ?? Discharge Planning:??Unclear at this time ? Histories Allergies Allergies ?(Active and Proposed Allergies Only) shellfish? (Severity: Unknown severity, Onset: Unknown) ?Comments: patient reports itchy/tingling throat Fish? (Severity: Unknown severity, Onset: Unknown) ?Comments: patient reports itchy/tingling throat Tylenol? (Severity: Unknown severity, Onset: Unknown) MetFORMIN (Eqv-Glumetza)? (Severity: Unknown severity, Onset: Unknown) acetaminophen? (Severity: Unknown severity, Onset: Unknown) ?Reactions: extremely itchy ? Past Medical History/Problem List Active Problems??(23) Allergic rhinitis Anxiety and depression Anxiety disorder Bipolar illness Cellulitis Chronic back pain CKD (chronic kidney disease) Depressive disorder Diabetes FSGS (focal segmental glomerulosclerosis) GERD (gastroesophageal reflux disease) Hyperlipidemia Hypertension Insomnia Insulin dependent type 2 diabetes mellitus Iron deficiency Morbid obesity Obese class II Overactive bladder Tobacco dependence syndrome Urinary incontinence Vitamin D deficiency Weakness ? Past Surgical History Appendectomy ? Social History Alcohol Details:??Use: Never. Details:??Use: Never. Substance Abuse Details:??Use: Never. Details:??Use: Never. Tobacco Details:??Use: Never (less than 100 in lifetime). Details:??Current every day smoker Electronic Cigarette/Vaping Details:??Electronic Cigarette Use: Never. ? Family History Other: Diabetes mellitus; Hypertension ? Medications Home Medications Albuterol (ProAir HFA 90 mcg/inh inhalation aerosol)?2?puff(s)?Inhalation?as needed?Wheezing/Shortness of Breath?every 4-6 hours Amlodipine (amLODIPine 10 mg oral tablet)?1?tab(s)?10?Milligram?By Mouth?Daily Aspirin (Aspirin Low Dose 81 mg oral delayed release tablet)?1?tab(s)?81?Milligram?By Mouth?Daily BuPROpion (Wellbutrin XL 150 mg/24 hours oral tablet, extended release)?3?tab(s)?450?Milligram?By Mouth?Every 24 hours Docusate (DOK sodium 100 mg oral capsule)?1?capsule?100?Milligram?By Mouth?Daily?as needed?as needed for constipation Ergocalciferol (Vitamin D2 50,000 intl units (1.25 mg) oral capsule)?1?capsule?50,000?International Unit?By Mouth?Every 7 days?Monday Finasteride (finasteride 5 mg oral tablet)?1?tab(s)?5?Milligram?By Mouth?Daily Fluticasone Nasal (fluticasone 50 mcg/inh nasal spray)?1?spray(s)?Nares, Both?Daily Gabapentin (gabapentin 300 mg oral capsule)?900?Milligram?3?capsule?By Mouth?3 times a day Insulin Aspart (NovoLOG FlexPen 100 units/mL injectable solution)?4-12 UNITS?Subcutaneous Injection?3 times a day before meals?150-199= 4 [id number]= 6 -348= 8 -862= 10 -104= 12 unitsCall MD <70 or >400 insulin degludec (Tresiba FlexTouch 100 units/mL subcutaneous solution)?30?unit(s)?Subcutaneous Injection?Daily at bedtime Lactobacillus GG (Linkyt and Gaikai oral capsule)?1?capsule?By Mouth?2 times a day Lamotrigine (lamotrigine 100 mg oral tablet)?100?Milligram?1?tablet?By Mouth?Every 12 hours Loratadine (loratadine 10 mg oral tablet)?10?Milligram?1?tablet?By Mouth?Daily Lorazepam (LORazepam 2 mg oral tablet)?1?tab(s)?2?Milligram?By Mouth?3 times a day Nystatin Topical (Nystop 941545 u/gm powder)?1?toshia?Topically?2 times a day Ondansetron (ondansetron 4 mg oral tablet, disintegrating)?1?tab(s)?4?Milligram?By Mouth?Every 8 hours?as needed?as needed for nausea/vomiting Oxybutynin (oxybutynin 10 mg/24 hr oral tablet, extended release)?1?tab(s)?10?Milligram?By Mouth?Daily Oxycodone (OxyCONTIN 40 mg oral tablet, extended release)?40?Milligram?1?tablet?By Mouth?Every 12 hours Oxycodone (oxyCODONE 20 mg oral tablet)?1?tab(s)?20?Milligram?By Mouth?Every 5 hours?as needed?Pain , Severe?Max 5/Day Pantoprazole (pantoprazole 40 mg oral delayed release tablet)?1?tab(s)?40?Milligram?By Mouth?Daily Polyethylene Glycol 3350 (MiraLax oral powder for reconstitution)?17?gram?By Mouth?Daily?as needed?Constipation?dissolve in water before taking Propranolol (propranolol 120 mg oral capsule, extended release)?1?capsule?120?Milligram?By Mouth?Daily Rosuvastatin (rosuvastatin 40 mg oral tablet)?1?tab(s)?40?Milligram?By Mouth?Daily at bedtime Zolpidem (zolpidem 10 mg oral tablet)?1?tab(s)?10?Milligram?By Mouth?Daily at bedtime ? Results Recent Labs BLOOD COUNT & DIFF WBC 9.1 k/mm3 ()?? 08/29/2022 15:40 RBC 4.13 m/mm3 (Low)?? 08/29/2022 15:40 Hgb 12.2 Gm/dL ()?? 08/29/2022 15:40 Hct 37.2 % ()?? 08/29/2022 15:40 MCV 90.1 femtoliters ()?? 08/29/2022 15:40 MCH 29.5 pg ()?? 08/29/2022 15:40 MCHC 32.8 g/dL (Low)?? 08/29/2022 15:40 Platelet Count 306 k/mm3 ()?? 08/29/2022 15:40 RDW-SD 45.3 femtoliters ()?? 08/29/2022 15:40 MPV 10.1 femtoliters ()?? 08/29/2022 15:40 Nucleated RBC (Automated) 0.0 #/100 WBC'S ()?? 08/29/2022 15:40 Abs. NRBC 0.0 k/mm3 ()?? 08/29/2022 15:40 Abs. Neut 7.0 k/mm3 ()?? 08/29/2022 15:40 Abs. Lymph 1.4 k/mm3 ()?? 08/29/2022 15:40 Abs. [place] 0.5 k/mm3 ()?? 08/29/2022 15:40 Abs. Eo 0.2 k/mm3 ()?? 08/29/2022 15:40 Abs. Baso 0.0 k/mm3 ()?? 08/29/2022 15:40 Neut % 76.7 % (High)?? 08/29/2022 15:40 Lymph % 15.1 % ()?? 08/29/2022 15:40 [place] % 5.4 % ()?? 08/29/2022 15:40 Eos % 2.2 % ()?? 08/29/2022 15:40 Baso % 0.3 % ()?? 08/29/2022 15:40 Imm Gran 0.3 % ()?? 08/29/2022 15:40 Abs. Imm Gran 0.0 k/mm3 ()?? 08/29/2022 15:40 ?? CHEM GENERAL Sodium 134 mmol/L ()?? 08/29/2022 15:40 Potassium HEMOLYZED mmol/L ()?? 08/29/2022 15:40 Chloride 98 mmol/L ()?? 08/29/2022 15:40 Bicarbonate Level 23 mmol/L ()?? 08/29/2022 15:40 Anion Gap 13 ()?? 08/29/2022 15:40 Glucose Level 128 mg/dL (High)?? 08/29/2022 15:40 Glucose, POC 176 mg/dL (High)?? 08/29/2022 11:22 BUN 23 mg/dL (High)?? 08/29/2022 15:40 Creatinine-Blood 1.0 mg/dL ()?? 08/29/2022 15:40 Estimated GFR Creatinine 71 ML/MIN/1.73 M2 ()?? 08/29/2022 15:40 Calcium 9.6 mg/dL ()?? 08/29/2022 15:40 ?? MISC. CHEMISTRY Hold Green Top SPECIMEN DISCARDED AFTER 1 WEEK ()?? 08/29/2022 15:40 ? Urinalysis?? No qualifying data available. ?? Hospital Progress note Marina Sparks: PERFORM, SIGN, VERIFY Event Display: Progress Note Hospital Authored Date: Patient: BARB CAVANAUGH Age: 52 years Sex: Female : 1970 Associated Diagnoses: None Author: Marina Sparks Findings Problem Related to Alteration in Comfort : Alteration in Comfort/new 09/02/2022 11:00 EST Alteration in Comfort Related to Other: Pain control Goals & Outcomes: Comfort Pt will report acceptable level of comfort & pain control, Pt will state importance of adhering to pain strategy regime, Pt will demonstrate necessary skills to manage pain, Non-verbal indicators will indicate comfort/pain control Interventions Implemented: Comfort Assess pain using appropriate pain scale/tools, Assess aggravating factors & prevent them accordingly, Assess alleviating factors & promote them accordingly BH Goals/Interventions, Comfort Yes Comfort, Problem Start 08/30/2022 17:25 Reviewed plan with, Comfort Patient Patient Progression, Comfort Resolved problem Comfort, Problem Ongoing Yes Comfort, Problem Resolved 09/02/2022 11:50 . Narrative/Incidental Pt alert and oriented x4, back and leg pain present, oxycodone given. Pt has no IV access. Pt given Ativan for anxiety. Pt last POC was 167, insulin given. Pt last BM was 09/01. Pt went home by ambulance this afternoon, report given. . Discharge Information Case Management Discharge Plan : Case Management Discharge Plan Data 09/02/2022 10:14 EST Discharge Level of Care at Discharge Homehealth/VNA Discharge VNA/Hospice/Home Care [facility] [address] [place] [address] [address] [place] [phone] Discharge Transportation Arranged [address] Mode of Transportation Arranged Ambulance Name of Agency #1 [facility] [phone] Agency Optimization Analyst #1 Sharifa Bryan, clinical liaison, [facility] Service Categories #1 Occupational Therapy, Halfway Service Start Date and Time #1 09/02/2022 12:00 (In Error) Service Comments #1 [facility], your current agency, will provide you with home chcf and occupational therapy services. The agency will call you to schedule a time for your first home nursing visit. They will assess you for home physical therapy at a later date. Name of Agency #2 [facility] Clinical Response Unit/Member Services Agency Optimization Analyst #2 Member Services [phone] Service Categories #2 locker plant attendant, Other: [facility] posthospitalization nursing check in Service Comments #2 Your [facility] team will continue to follow you in the community, and will provide a posthospitalization nursing assessment by phone. You can also contact [facility] Member Services or your school child care attendant with any concerns about your current BIOFUELS MANAGER services.Marina Sparks: PERFORM, SIGN, VERIFY Event Display: Progress Note Hospital Authored Date: [id number] Patient: BARB CAVANAUGH Age: 52 years Sex: Female : 1970 Associated Diagnoses: None Author: Marina Sparks Findings Problem Related to Alteration in Comfort : Alteration in Comfort/new 09/01/2022 16:00 EST Alteration in Comfort Related to Other: Pain control Goals & Outcomes: Comfort Pt will report acceptable level of comfort & pain control, Pt will state importance of adhering to pain strategy regime, Pt will demonstrate necessary skills to manage pain, Non-verbal indicators will indicate comfort/pain control Interventions Implemented: Comfort Assess pain using appropriate pain scale/tools, Assess aggravating factors & prevent them accordingly, Assess alleviating factors & promote them accordingly BH Goals/Interventions, Comfort Yes Comfort, Problem Start 08/30/2022 17:25 Reviewed plan with, Comfort Patient Patient Progression, Comfort Pt progressing according to plan Comfort, Problem Ongoing Yes . Narrative/Incidental Pt alert and oriented x4, R leg pain present, dialudid given. Pt has L wrist IV access, clean and intact. Pt is on Lovenox. Pt went for MRI this morning. Pt insulin was held this morning due to her being NPO, made aware. Pt last POC was 173, insulin given. Pt last BM was 08/29. Call torres within reach, bed in lowest postion, all needs met at this time. Pt safe and comfortable. .Vernon Ferguson DO: PERFORM Vernon Ferguson DO: PERFORM, SIGN Vernon Ferguson DO: SIGN, VERIFY Vernon Ferguson DO: VERIFY, SIGN Event Display: Progress Note Hospital Authored Date: [id number] Patient: BARB CAVANAUGH Age: 52 years Sex: Female : 1970 Associated Diagnoses: None Author: Vernon Ferguson DO Visit Information Presented 08/22 for suicidal ideation History of Present Illness Patient's pain unchanged from previous days. MRI shows no changes from previous and cauda equina syndrome ruled out. Past Medical History Procedure/Surgical Profile Appendectomy (SNOMED CT 779697236). Problem list All Problems (Selected) Allergic rhinitis / SNOMED CT 596536028 / Confirmed Anxiety and depression / SNOMED CT 379454288 / Confirmed Anxiety disorder / SNOMED CT 765374814 / Confirmed asthma / Confirmed Bipolar illness / SNOMED CT 18154930 / Confirmed Cellulitis / SNOMED CT 456413740 / Confirmed chronic back pain / Confirmed Chronic back pain / SNOMED CT 639259986 / Confirmed CKD (chronic kidney disease) / SNOMED CT 9439707031 / Confirmed Depressive disorder / SNOMED CT 38808984 / Confirmed Diabetes / SNOMED CT 268166554 / Confirmed FSGS (focal segmental glomerulosclerosis) / SNOMED CT 646592723 / Confirmed GERD (gastroesophageal reflux disease) / SNOMED CT 210390259 / Confirmed h/o appendectomy / Confirmed h/o oopherectomy / Confirmed Hyperlipidemia / SNOMED CT 71691128 / Confirmed hypertension / Confirmed Hypertension / SNOMED CT 3091998137 / Confirmed Insomnia / SNOMED CT 259672538 / Confirmed Insulin dependent type 2 diabetes mellitus / SNOMED CT 2134078487 / Confirmed Iron deficiency / SNOMED CT 58193370 / Confirmed Morbid obesity / SNOMED CT 861074566 / Confirmed Overactive bladder / SNOMED CT 5835094782 / Confirmed Severe obesity / SNOMED CT 0562169096 / Confirmed Tobacco dependence syndrome / SNOMED CT 748292320 / Confirmed Urinary incontinence / SNOMED CT 9862243523 / Confirmed Vitamin D deficiency / SNOMED CT 14223273 / Confirmed Weakness / SNOMED CT 84163994 / Confirmed Allergies Allergic Reactions (Selected) Severity Not Documented Fish- No reactions were documented. MetFORMIN (Eqv-Glumetza)- No reactions were documented. Shellfish- No reactions were documented. Tylenol- No reactions were documented. Nonallergic Reactions (Selected) Severity Not Documented Acetaminophen- Extremely itchy. Physical Examination General Exam Respiratory Normal. RR even/ unlabored, Speaking freely during exam, No s/s or c/o SOB. . Abdominal Normal. Peripheral Pulse Normal. + 2 dorsal pedal pulse . Psychiatric Normal. a.ox3 answers all questions appropriately + appropriate affect . Neurologic Normal. significant stocking glove neuropathy; decreased sensation in right leg ~L3-S1 Bed bound except for movement to commode; this is patient's baseline. Range of Motion Normal. Musculoskeletal Normal. Skin Normal. No obvious deformities/ step-offs/ abnormalities noted on examination C/T/L spine . Sensory Normal. Motor Normal. Pain Assessment The Quality is aching and dull, not heavy/pressure and not spasmodic. The severity is severe and 9 / 10 on the severity scale. Time pattern: acute, constant. Exacerbating factors: movement, palpation. Relieving factors: medication. Pain interventions: medication, repositioning. Results Review Results Reviewed Results: Today's Results : ALL RESULT SECTIONS(Date Range: 08/30/2022 0:00 EST - 223:59 EST) Vital SignsTemperature : Temperature 08/30/2022 0:13 EST Temperature 99 DegF Heart Rate Monitored : Heart Rate Monitored 09/01/2022 10:30 EST Heart Rate Monitored 63 bpm 09/01/2022 10:15 EST Heart Rate Monitored 78 bpm 09/01/2022 10:00 EST Heart Rate Monitored 66 bpm Pulse Rate : Pulse Rate 08/30/2022 0:13 EST Pulse Rate 68 bpm Respiratory Rate : Respiratory Rate 08/30/2022 8:08 EST Respiratory Rate 18 br/min SBP/DBP Cuff : SBP/DBP Cuff 08/30/2022 0:13 EST Systolic Blood Pressure 132 mm Hg Diastolic Blood Pressure 71 mm Hg O2 Sat : Oxygen Saturation 08/30/2022 0:13 EST Oxygen Saturation 96 % Impression and Plan Impression and Plan Comprehensive Assessment Plan as follows Patient is 52F PMH as listed above admitted for suicidal ideation and being seen by APS for acute onchronic back pain after a fall. Improved pain relief with IV Dilaudid vs home PO regimen. Imaging and repeat imaging indicates no cauda equina syndrome but disc extrusion and canal narrowing is present. Recommendations 1. Restart home Oxycodone and Oxycontin 2. Discontinue IV Dilaudid 3. Continue Gabapentin 900mg TID 4. Consider addiction medicine consult given high dose of home opioid medications 5. Consider repeat epidural steroid injections as outpatient APS will sign off at this time. Discussed with APS attending I Dr Grove, have seen and evaluated this patient. I have discussed the case and its management with the resident and agree with the findings and plan as documented in the resident???s note. Note Marina Sparks: PERFORM Event Display: Discharge/Transfer Note Hospital Authored Date: [id number] Nursing Discharge Note Entered On: 09/02/2022 12:36 EST Performed On: 09/02/2022 12:35 EST by Marina Sparks Nursing Discharge Note 2 Discharge Time : 09/02/2022 12:30 EST Discharge Level of Care at Discharge : Homehealth/VNA Discharge VNA/Hospice/Home Care(v001) : [facility] [address] [place] [address] [place] [phone] Patient Left Unit Via : Ambulance Patient Accompanied Off Unit with : Ambulance/Chair Van Personnel Handover Given to Transport Personnel : Yes DC Instructions Provided & Signed by Pt : Yes Patient Understands D/C Instructions : Yes Patient Instructions Discharge Signed : Yes Did Pt have Specialty Bed or Wound Vac : No Monalisa Marina ARCHIBALD - 09/02/2022 12:35 Jonny Turcios MD: PERFORM Event Display: Discharge/Transfer Note Hospital Authored Date: [id number] Patient: ??MAO, BARB ? Age:??52 Years?Sex:??Female?:??1970?? Patient Information Discharge Location: [facility] Primary Care Physician: Evelyn Bui MD Admit Date/Time: 08/29/22 10:57 Discharge date-09/02/2022 Discharge Disposition Discharge Disposition: Home with Home Health Discharge Diagnosis Back pain (M54.9) Suicidal ideation (R45.851) Chronic back pain Depressive disorder Hypertension Insulin dependent type 2 diabetes mellitus Morbid obesity Tobacco dependence syndrome chronic back pain ?? _ Discharge Medications Albuterol (ProAir HFA 90 mcg/inh inhalation aerosol)?2?puff(s)?Inhalation?as needed?Wheezing/Shortness of Breath?every 4-6 hours Amlodipine (amLODIPine 10 mg oral tablet)?1?tab(s)?10?Milligram?By Mouth?Daily Aspirin (Aspirin Low Dose 81 mg oral delayed release tablet)?1?tab(s)?81?Milligram?ByMouth?Daily BuPROpion (Wellbutrin XL 150 mg/24 hours oral tablet, extended release)?3?tab(s)?450?Milligram?By Mouth?Every 24 hours Docusate (DOK sodium 100 mg oral capsule)?1?capsule?100?Milligram?By Mouth?Daily?as needed?as needed for constipation Ergocalciferol (Vitamin D2 50,000 intl units (1.25 mg) oral capsule)?1?capsule?50,000?International Unit?By Mouth?Every 7 days?Monday Finasteride (finasteride 5 mg oral tablet)?1?tab(s)?5?Milligram?By Mouth?Daily Fluticasone Nasal (fluticasone 50 mcg/inh nasal spray)?1?spray(s)?Nares, Both?Daily Gabapentin (gabapentin 300 mg oral capsule)?900?Milligram?3?capsule?By Mouth?3 times a day Insulin Aspart (NovoLOG FlexPen 100 units/mL injectable solution)?4-12 UNITS?Subcutaneous Injection?3 times a day before meals?150-199= 4 [id number]= 6 [id number]= 8 [id number]= 10 [id number]= 12 unitsCall MD <70 or >400 insulin degludec (Tresiba FlexTouch 100 units/mL subcutaneous solution)?30?unit(s)?Subcutaneous Injection?Daily at bedtime Lactobacillus GG (T[employer] Health and Wellness oral capsule)?1?capsule?By Mouth?2 times a day Lamotrigine (lamotrigine 100 mg oral tablet)?100?Milligram?1?tablet?By Mouth?Every12 hours Loratadine (loratadine 10 mg oral tablet)?10?Milligram?1?tablet?By Mouth?Daily Lorazepam (LORazepam 2 mg oral tablet)?1?tab(s)?2?Milligram?By Mouth?3 times a day Nystatin Topical (Nystop 443419 u/gm powder)?1?toshia?Topically?2 times a day Ondansetron (ondansetron 4 mg oral tablet, disintegrating)?1?tab(s)?4?Milligram?By Mouth?Every 8 hours?as needed?as needed for nausea/vomiting Oxybutynin (oxybutynin 10 mg/24 hr oral tablet, extended release)?1?tab(s)?10?Milligram?By Mouth?Daily Oxycodone (OxyCONTIN 40 mg oral tablet, extended release)?40?Milligram?1?tablet?By Mouth?Every 12 hours Oxycodone (oxyCODONE 20 mg oral tablet)?1?tab(s)?20?Milligram?By Mouth?Every 5 hours?as needed?Pain , Severe?Max 5/Day Pantoprazole (pantoprazole 40 mg oral delayed release tablet)?1?tab(s)?40?Milligram?By Mouth?Daily Polyethylene Glycol 3350 (MiraLax oral powder for reconstitution)?17?gram?By Mouth?Daily?as needed?Constipation?dissolve in water before taking Propranolol (propranolol 120 mg oral capsule, extended release)?1?capsule?120?Milligram?By Mouth?Daily Rosuvastatin (rosuvastatin 40 mg oral tablet)?1?tab(s)?40?Milligram?By Mouth?Dailyat bedtime Zolpidem (zolpidem 10 mg oral tablet)?1?tab(s)?10?Milligram?By Mouth?Daily at bedtime ? Inpatient Medications Medications (39) Active SCHEDULED: (22) Amlodipine 10 mg Tablet (amLODIPine 10 mg oral tablet) ??10 mg, By Mouth, Daily Aspirin 81 mg EC Tablet (aspirin 81 mg oral delayed release tablet) ??81 mg, By Mouth, Daily BuPROPion XL 150 mg Tablet (BuPROpion XL Tablet) ??450 mg, By Mouth, Daily Enoxaparin 40 mg Inj (Enoxaparin Inj) ??40 mg 0.4 mL, Subcutaneous Injection, Daily Finasteride 5 mg Tablet (finasteride 5 mg oral tablet) ??5 mg, By Mouth, Daily Fluticasone Propionate 50mcg/inh Nasal [place] (fluticasone 50 mcg/inh nasal spray) ??50 mcg 1 sprays,Nares, Both, 2 times a day Gabapentin 300 mg Capsule (gabapentin 300 mg oral capsule) ??900 mg, By Mouth, 3 times a day Insulin Glargine 100 units/mL Inj (Insulin Glargine Inj) ??30 units 0.3 mL, Subcutaneous Injection, Daily at bedtime Insulin Lispro 100 units/mL Inj (3mL) (Insulin LISPRO Scale) ??3-15 units, Subcutaneous Injection, 3times a day before meals LamoTRIGINE 100 mg Tablet (lamotrigine 100 mg oral tablet) ??100 mg, By Mouth, Every 12 hours Loratadine 10 mg Tablet (loratadine 10 mg oral tablet) ??10 mg, By Mouth, Daily Multivitamin Therapeutic / Minerals Tablet (Multivit Therapeutic/Minerals Tablet) ??1 tablet, By Mouth, Daily NaCl 0.9% Flush 3ml (NaCL 0.9% Flush) ??3 mL, IV Push, Every 8 hours Nystatin Powder (Nystatin Topical) ??1 application, Topically, 2 times a day Oxybutynin 5 mg ER Tablet (Oxybutynin XL Tablet) ??10 mg, By Mouth, Daily OxyCODONE 40 mg ER Tablet (OxyCONTIN 40 mg oral tablet, extended release) ??40 mg, By Mouth, Every 12 hours Pantoprazole 40 mg EC Tablet (pantoprazole 40 mg oral delayed release tablet) ??40 mg, By Mouth, Daily Propranolol 60 mg CR Capsule (propranolol 60 mg oral capsule, extended release) ??120 mg, By Mouth, Daily Rosuvastatin 20 mg Tablet (rosuvastatin 40 mg oral tablet) ??40 mg, By Mouth, Daily Saccharomyces Boulardii Lyo 250 mg Caps (saccharomyces boulardii lyo 250 mg oral capsule) ??250 mg, By Mouth, 2 times a day Tamsulosin 0.4 mg Capsule (tamsulosin 0.4 mg oral capsule) ??0.4 mg, By Mouth, Daily Vitamin D 50,000 International Unit Capsule (ergocalciferol 79629 iu oral capsule) ??50,000 International_Units, By Mouth, Every 7 days CONTINUOUS: (0) PRN: (17) Albuterol 90mcg/Inhalation Inhaler HFA (albuterol CFC free 90 mcg/inh inhalation aerosol) ??180 mcg 2 puffs, Inhalation, Every 4 hours Dextromethorphan-Guaifenesin 20 mg-200 mg/10 mL Liqu UD (Robitussin DM Liquid) ??10 mL, By Mouth, Every 4 hours Ibuprofen 600 mg Tablet (ibuprofen 800 mg oral tablet) ??600 mg, By Mouth, 3 times a day Lorazepam 1 mg Tablet (LORazepam 1 mg oral tablet) ??2 mg, By Mouth, 3 times a day Melatonin 3 mg Tablet (Melatonin Tablet) ??3 mg, By Mouth, Daily at bedtime NaCl 0.9% Flush 3ml (NaCL 0.9% Flush) ??3 mL, IV Push, Every 8 hours nalOXONE ??400mcg/mL Inj (Narcan Inj) ??0.4 mg 1 mL, IV Push Slowly, Once Ondansetron 2mg/mL Inj (2mL Vial) (Zofran Inj) ??4 mg, IV Push, Every 6 hours OxyCODONE 5 mg IR Tablet (oxyCODONE 5 mg oral tablet) ??20 mg, By Mouth, Every 5 hours Polyethylene Glycol 17 Gm Powder (Polyethylene Glycol Powder) ??17 Gm 1 pack/packet, By Mouth, Daily Polyethylene Glycol 17 Gm Powder (MiraLax Powder) ??17 Gm 1 pack/packet, By Mouth, Daily Senna 8.6 mg / Docusate 50 mg tablet (Docusate/Senna Tablet) ??1 tablet, By Mouth, 2 times a day Senna 8.6 mg / Docusate 50 mg tablet (Docusate/Senna Tablet) ??1 tablet, By Mouth, 2 times a day Simethicone 40 mg/0.6 mL Oral Syringe (0.6mL) (Simethicone Liquid) ??125 mg 1.88 mL, Chew, 4 times aday Simethicone 80 mg Chewable Tablet (Simethicone Tablet) ??80 mg, Chew, 3 times a day Sodium Chloride 0.65% Nasal [place] (Salinex [place]) ??2 sprays, Nares, Both, Every 2 hours Zolpidem 5 mg Tablet (zolpidem 5 mg oral tablet) ??10 mg, By Mouth, Daily at bedtime ? Vaccinations and Immunoprophylaxis influenza virus vaccine, inactivated: 0.5 mL (07/07/21 12:45:00) influenza virus vaccine, inactivated: 0.5 mL (06/20/20 09:50:00) influenza virus vaccine, inactivated: 0.5 Unknown (07/06/16 08:00:00) influenza virus vaccine, inactivated: 0.5 Unknown (06/05/15 08:00:00) pneumococcal 23-valent vaccine: 0.5 mL (05/26/20 09:23:00) SARS-CoV-2 (COVID-19) mRNA-1273 vaccine: 0.25 Unknown (08/03/21 07:00:00) SARS-CoV-2 (COVID-19) mRNA-1273 vaccine: 0.5 Unknown (12/23/20 08:00:00) SARS-CoV-2 (COVID-19) mRNA-1273 vaccine: 0.5 Unknown (11/26/20 07:00:00) tetanus/diphtheria/pertussis, acel(Tdap): 0.5 Unknown (09/03/15 07:00:00) Hepatitis B Vaccine (old term): 0.5 mL (03/22/08 17:34:00) ?? Durable Medical Equipment On Admit VNA/Hospice/Home Care: [facility] Clinical Response Unit/Member Services [phone] (08/31/22) Discharge recommendations: Home with services (08/17/22) Name of Agency #1: [facility] [phone] (09/02/22) Agency Optimization Analyst #1: Sharifa Bryan, clinical liaison, [facility] (09/02/22) Service Categories #1: Occupational Therapy, Halfway (09/02/22) Service Comments #1: [facility], your current agency, will provide you with home chcf and occupational therapy services. The agency will call you to schedule a time for your first home nursing visit. They will assess you for home physical therapy at a later date. (09/02/22) Name of Agency #2: [facility] Clinical Response Unit/Member Services (09/02/22) Agency Optimization Analyst #2: Member Services [phone] (09/02/22) Service Categories #2: locker plant attendant, Other: [facility] posthospitalization nursing check in (09/02/22) Service Comments #2: Your [facility] team will continue to follow you in the community, and will provide a posthospitalization nursing assessment by phone. You can also contact [facility] Member Services or your school child care attendant with any concerns about your current BIOFUELS MANAGER services. (09/02/22) Ambulatory devices needed: Walker, Wheelchair (09/01/22) ? Medications Started No new medications were started Medications Discontinued None Doses Changed None Allergies Allergies ?(Active and Proposed Allergies Only) shellfish? (Severity: Unknown severity, Onset: Unknown) ?Comments: patient reports itchy/tingling throat Fish? (Severity: Unknown severity, Onset: Unknown) ?Comments: patient reports itchy/tingling throat Tylenol? (Severity: Unknown severity, Onset: Unknown) MetFORMIN (Eqv-Glumetza)? (Severity: Unknown severity, Onset: Unknown) acetaminophen? (Severity: Unknown severity, Onset: Unknown) ?Reactions: extremely itchy ? PCP Follow-Up/Heads-Up Follow-up with your primary care physician within 1 to 2-week of discharge. ??Call their office for appointment Consider following up with acute pain services in an outpatient basis for??steroid injection to helpwith pain. Hospital Course ?? This is a 52-year-old female with a past medical history of insulin-dependent diabetes mellitus, chronic back pain, bipolar disorder who presented to the emergency room on 08/22 for suicidal ideation. She??was ??in the ED for at least 7 days now. Prior to presentation, patient called a suicide hotline reporting that she did not want to live and plan to run into traffic. She has an acute on chronic back pain, she is nonambulatory, only able to pivot to bedside commode and her pain has been uncontrolled despite high doses of pain meds that she is currently on. Because of which she says, I do not want to live anymore . Patient was supposed to be discharged from the ER to an inpatient psych unit however dispo has been difficult given her poor mobility. ??Who was initially thought to have suicidal ideation. ??Patient was cleared by??psychiatry??of any?active??suicidal ideations. ??Initially??patient required one-to-one sitter which was discontinued later after??psychiatrist clearance.?? Patient was seen by acute pain services during hospital stay??and recommended to keep patient on IV Dilaudid every 3 hours as needed for pain.?? Patient underwent MRI lumbar spine under anesthesia with did not show any??significant acute pathology.?? Patient??IV Dilaudid was stopped and she was??restarted backon her home regimen??of OxyContin??40 mg every 12 hours??and??immediate release oxycodone??20 mg every 5 hours as needed.?Patient refused PT evaluation.?? She will be discharged home with home health. ?? Referrals??for appointment with primary care physician within 1 to 2-week of discharge has been sent.?? Patient was informed to make follow-up appointment to see acute pain services??on an outpatient basis for steroid injection to help with the pain. ? Objective Problem based management during hospital stay are as follows: ?? acute on chronic??back pain Patient has had multiple scans??including CT??lumbar??spine/MRI??lumbar spine's??and has had multiple admissions??nearly every weekly for the last few months Her last MRI lumbar spine was on??08/18/2022 which did not show any significant??lumbar pathology, she did have??repeat??CT lumbar spine??on 08/22/2022??with didn not?? show any acute pathology. MRI lumbar spine on 09/01/2022??did not show any changes from her previous MRI from 08/18/2022.?? Acute pain services recommended to wean down??on her IV Dilaudid to her home regimen. No signs of cauda equina compression, patient was monitored with neurochecks every 4 hours during hospital stay without??any significant deterioration. Addiction clinic recommended-they do not have much to offer from the side and recommended to follow up outpatient with patient's PCP. PT evaluation was requested but patient denied PT evaluation. ??Patient will be discharged home withpending sale to [facility]. ?? Suicidal ideation No further suicidal ideation, cleared by psychiatry, one-to-one sitter was removed ? Management of other chronic medical conditions is as follows? Diabetes???continue home dose dulaglutide 30 units, as well as sliding scale coverage, POC ACH S. Overactive bladder???on oxybutynin. Also on Flomax and finasteride, unclear indication Hyperlipidemia???continue rosuvastatin GERD???continue PPI Continue home dose of loratadine Hypertension???continue home dose of propranolol, amlodipine Bipolar disorder???continue bupropion, lamotrigine. As needed lorazepam, Zolpidem as needed nightly for insomnia ?? VTE Prophylaxis:??Patient was given subcutaneous Lovenox for DVT prophylaxis during hospital stay ? CODE STATUS-full code ? Electronically signed: ?? Jonny Chin MD. ? Measurements?? Height: 172.7 cm (09/02/22) Weight: 124.8 kg (08/30/22) Dry Weight: 123 kg (08/30/22) Body Mass Index:??41.84 kg/m2??Critical (08/30/22) ? Vital Signs?? Temperature: 97.9 DegF (09/02/22 06:16:00) Temperature Route: Oral (09/02/22 06:16:00) Pulse Rate: 75 bpm (09/02/22 09:00:00) Respiratory Rate: 16 br/min (09/02/22 09:47:00) Systolic Blood Pressure: 117 mm Hg (09/02/22 09:00:00) Systolic Blood Pressure: 117 mm Hg (09/02/22 09:00:00) Diastolic Blood Pressure: 83 mm Hg (09/02/22 09:00:00) Diastolic Blood Pressure: 83 mm Hg (09/02/22 09:00:00) Blood pressure sites: Arm, right (09/02/22 06:16:00) Mean Arterial Pressure: 83 mm Hg (09/02/22 06:16:00) Pulse Pressure: 78 mm Hg (09/02/22 06:16:00) Oxygen Saturation: 97 % (09/02/22 06:16:00) Mode of Delivery (Oxygen): Room air (09/02/22 06:16:00) Early Warning Score: 2 (09/02/22 09:48:48) ? Perfusion Assessment Cardiovascular: WNL except (09/01/22 21:00:00) Cardiovascular Symptoms: Edema present (09/01/22 21:00:00) ? Basic ADLs Activity Assistance: Minimum assistance, Standby assist (08/31/22) Ambulatory devices needed: Walker, Wheelchair (09/01/22) Feeding Assistance: Independent (09/02/22) Hygiene: Self, Partial bath, Safia care (08/31/22) ? . Physical Exam Constitutional: Alert, in no acute distress. Head EENT: Extraocular muscle movement intact.??Moist mucous membranes.?? Neck: Supple. No JVD. Respiratory: Clear to auscultation. No wheezing or crackles. No use of accessory muscles. Cardiovascular: S1S2 regular. No murmurs, rubs or gallops. Gastrointestinal: Abdomen soft, non-tender, non-distended. Normal bowel sounds. Genitourinary: No CVA tenderness. Extremities: No lower extremity pitting??edema. No cyanosis or clubbing. Neurologic: AAOx3, Speech normal. No focal neurological deficits.?? No weakness in bilateral lower extremities,??no bowel/bladder incontinence,??no changes to sensation??in saddle area. Skin: No rash. Psychiatric: Normal mood and affect Pending Results No Pending Results Patient Education Titles Depression: Tips to Help Yourself?? Depression?? Follow-Up Appointments Added Follow Up ?Time Frame ?Comments Hao MELCHOR, Evelyn Ackerman?1 week: call to discuss follow up visit?call office for follow up appointment. Patient Instructions Discharge instructions Continue taking your home medications as you were doing before. Consider following up with??acute pain services for??steroid injection??to help with the pain ?? Follow-up appointment Follow-up with your primary care physician within 1 to 2-week of discharge. ??Call their office for appointment Post Discharge Care Activity: as tolerated Wound Care: none Code Status: ?? Full Resuscitation Condition: stable Prognosis: Fair Home Health Face to Face *Denotes mandatory persaud ?? *I certify that this patient is under my care and that I or an allowed non- physician working with jonelled a face to face encounter with the patient on this date:??09/02/2022 11:09 ?? *The encounter with the patient was in whole, or in part, for the following medical condition, whichis the primary diagnosis(es) for home health care:??Back pain (M54.9) Suicidal ideation (R45.851) Chronic back pain Depressive disorder Hypertension Insulin dependent type 2 diabetes mellitus Morbid obesity Tobacco dependence syndrome chronic back pain ? *Select the indications for the discipline/s that are being arranged for this patient. Nursing (select all that apply): [_] None [X_] Medication management (reconciliation, teaching)?? [X_] Chronic disease management?? [_] Wound care and treatment?? [X_] Home safety evaluation [_] Administer SQ/IM/IV medications?? [_] Cath care?? [_] Drain care?? [_] Trach or GT care?? Other pain assessment and management Occupation Therapy (select all that apply): [_] None [X_] ADL Management [X_] Fall prevention training [_] Energy conservation [_] Cognitive training Other _ Physical Therapy (select all that apply): [_] None [_X] Functional mobility training [X_] Home exercise program to strengthen [X_] Increase ROM?? [X_] Falls prevention training [X_] Home maintenance program for chronic disease Other _ Speech Therapy (select all that apply): [_] None [_] Swallow evaluation and training [_] Speech and language training [_] Cognitive training to process, organize, and/or recall information Other _ ? *Homebound due to (select all that apply): [_] Inability to leave home without assistance/supervision [X_] Inability to ambulate without assistance [X_] Pain [X_] Decreased strength and endurance [_] Unsteady gait [_] Severe SOB and fatigue [X_] Impaired transfers [_] Inability to negotiate stairs [_] Limited weight bearing [_] Mental status change? *Physician Signature:? Electronically signed: ?? Jonny Chin MD. ? *By signing this, I certify that I have personally evaluated the patient and agree with the findingsand recommendations as documented above. ? F Results Discharge Labs BLOOD COUNT & DIFF WBC 9.1 k/mm3 ()?? 08/29/2022 15:40 RBC 4.13 m/mm3 (Low)?? 08/29/2022 15:40 Hgb 12.2 Gm/dL ()?? 08/29/2022 15:40 Hct 37.2 % ()?? 08/29/2022 15:40 MCV 90.1 femtoliters ()?? 08/29/2022 15:40 MCH 29.5 pg ()?? 08/29/2022 15:40 MCHC 32.8 g/dL (Low)?? 08/29/2022 15:40 Platelet Count 306 k/mm3 ()?? 08/29/2022 15:40 RDW-SD 45.3 femtoliters ()?? 08/29/2022 15:40 MPV 10.1 femtoliters ()?? 08/29/2022 15:40 Nucleated RBC (Automated) 0.0 #/100 WBC'S ()?? 08/29/2022 15:40 Abs. NRBC 0.0 k/mm3 ()?? 08/29/2022 15:40 Abs. Neut 7.0 k/mm3 ()?? 08/29/2022 15:40 Abs. Lymph 1.4 k/mm3 ()?? 08/29/2022 15:40 Abs. [place] 0.5 k/mm3 ()?? 08/29/2022 15:40 Abs. Eo 0.2 k/mm3 ()?? 08/29/2022 15:40 Abs. Baso 0.0 k/mm3 ()?? 08/29/2022 15:40 Neut % 76.7 % (High)?? 08/29/2022 15:40 Lymph % 15.1 % ()?? 08/29/2022 15:40 [place] % 5.4 % ()?? 08/29/2022 15:40 Eos % 2.2 % ()?? 08/29/2022 15:40 Baso % 0.3 % ()?? 08/29/2022 15:40 Imm Gran 0.3 % ()?? 08/29/2022 15:40 Abs. Imm Gran 0.0 k/mm3 ()?? 08/29/2022 15:40 ?? CHEM GENERAL Sodium 134 mmol/L ()?? 08/29/2022 15:40 Potassium 4.8 mmol/L ()?? 08/29/2022 18:13 Chloride 98 mmol/L ()?? 08/29/2022 15:40 Bicarbonate Level 23 mmol/L ()?? 08/29/2022 15:40 Anion Gap 13 ()?? 08/29/2022 15:40 Glucose Level 128 mg/dL (High)?? 08/29/2022 15:40 Glucose, POC 167 mg/dL (High)?? 09/02/2022 07:55 BUN 23 mg/dL (High)?? 08/29/2022 15:40 Creatinine-Blood 1.0 mg/dL ()?? 08/29/2022 15:40 Estimated GFR Creatinine 71 ML/MIN/1.73 M2 ()?? 08/29/2022 15:40 Calcium 9.6 mg/dL ()?? 08/29/2022 15:40 ? MISC. CHEMISTRY Hold Green Top SPECIMEN DISCARDED AFTER 1 WEEK ()?? 08/29/2022 15:40 ? TOXICOLOGY/TDM Barbiturate Screen, Urine NONE DETECTED ()?? 08/22/2022 20:42 Cannabinoid Screen, Urine NONE DETECTED ()?? 08/22/2022 20:42 Cocaine Metabolite Screen, Urine NONE DETECTED ()?? 08/22/2022 20:42 Benzodiazepine Screen, Urine NONE DETECTED ()?? 08/22/2022 20:42 Amphetamine Screen, Urine NONE DETECTED ()?? 08/22/2022 20:42 Opiate Screen, Urine NONE DETECTED ()?? 08/22/2022 20:42 ?? VIROLOGY Influenza A PCR NEGATIVE ()?? 08/22/2022 08:13 Influenza B PCR NEGATIVE ()?? 08/22/2022 08:13 RSV PCR NEGATIVE ()?? 08/22/2022 08:13 COVID-19 PCR Specimen Source NASAL ()?? 09/01/2022 05:43 COVID-19 PCR Result NEGATIVE ()?? 09/01/2022 05:43 ? Microbiology ?? COVID-19 (2019 Novel Coronavirus) PCR?? Completed?? Source: Nasal Body Site: Nose Collected Dt/Tm: 09/01/2022 05:43 Last Updated Dt/Tm: 09/02/2022 06:14 ? 35??minutes spent on discharge Shyann Nj RN, V: PERFORM, SIGN, VERIFY Event Display: Case Management Discharge Plan Authored Date: Patient: BARB CAVANAUGH Age: 52 years Sex: Female : 1970 Associated Diagnoses: None Author: Shyann Nj RN, V Discharge Plan Case Management Discharge Plan : Case Management Discharge Plan Data 09/02/2022 10:14 EST Discharge Level of Care at Discharge Homehealth/VNA Discharge VNA/Hospice/Home Care [facility] [address] [place] [address] [facility] [phone] Discharge Transportation Arranged [facility] [address] [facility] Mode of Transportation Arranged Ambulance Name of Agency #1 [facility] [phone] Agency Optimization Analyst #1 Sharifa Bryan, clinical liaison, [facility] Service Categories #1 Occupational Therapy, Halfway Service Start Date and Time #1 09/02/2022 12:00 (In Error) Service Comments #1 [facility], your current agency, will provide you with home chcf and occupational therapy services. The agency will call you to schedule a time for your first home nursing visit. They will assess you for home physical therapy at a later date. Name of Agency #2 [facility] Clinical Response Unit/Member Services Agency Optimization Analyst #2 Member Services [phone] Service Categories #2 locker plant attendant, Other: [facility] posthospitalization nursing check in Service Comments #2 Your [facility] team will continue to follow you in the community, and will provide a posthospitalization nursing assessment by phone. You can also contact [facility] Member Services or your school child care attendant with any concerns about your current [employer] MANAGER services.Marina Sparks: PERFORM Event Display: Patient Education/Instruction Authored Date: [id number] Inpatient Adult Discharge Instructions [address] [address] Name: BARB GARSIAER : 1970 Visit: 08/29/2022 10:57:00 Current Date: 09/02/2022 11:10 Account: [id number] Inpatient Adult Discharge Instructions We would like to thank you for allowing us to assist you with your healthcare needs. The following includes patient education materials and information regarding your injury/illness. Our entire staff strives to provide an excellent experience for our patients and their families. PLEASE ENSURE YOU FOLLOW-UP PER THE INSTRUCTIONS BELOW! ?? YOUR OPINION IS IMPORTANT TO US! Please complete the survey you may receive by mail or email. Your feedback will be used to make improvements to the healthcare experiences of our patients and their families. Surveys are administered by [employer] ?? If further treatment with your primary care physician or another doctor is recommended, it is important for you to keep the appointment. Call your primary care physician or return to the Emergency Department immediately if your condition worsens, fails to improve, or new symptoms develop. If you need to find a doctor, you can call [facility] for a referral at [phone] or toll free at [phone] or log in to [email or web address].. ?? You can view and manage your care through the patient portal or by using a health care toshia of your choosing. [employer] is a website that allows you to securely view your medical information including your hospital discharge summary, office visit summaries, medications and follow-up visits. You can also request appointments, renew medications, and request access to your medical information using a health care toshia of your choosing, or just ask a question. You can enroll at [email or web address] or register during your next office visit. You have been discharged from [facility], Patient Care Unit: S64. If you have any questions regarding these instructions after you leave, please call us and we will be happy to assist you. [facility] Your Care Team Attending Physician Giuseppe MELCHOR, Jonny Consulting Providers Denises MELCHOR, Natali Gonzales; Lindsey MELCHOR, Josephine; Susana MELCHOR, Iban Jarquin; Meghan HEREDIA, [place]; Tessa MELCHOR, Lesly; Luis MELCHOR, Alva Reason for Admission SECTION 12 Your Diagnosis Back pain Suicidal ideation Tests Performed Below is a partial list of the tests performed during your hospitalization. You may have had other tests and procedures not included in this list. Please discuss all test results with your provider. Amphetamine Urine Screen Barbiturate Urine Screen Benzodiazepine Urine Screen BUN Calcium Level Cannabinoid Urine Screen CBC w/ Differential Cocaine Urine Screen COVID-19 (2019 Novel Coronavirus) PCR COVID-19, RSV, and Flu A/B, Rapid PCR Creatinine Electrolytes Glucose Level GLUCOSE POC HOLD GREEN TUBE Opiate Screen Urine Potassium Level CT Lumbar Spine W/O Contrast MRI Lumbar Spine W/O Contrast Primary Care Provider Evelyn Bui MD Advance Directive Health Care Proxy on File Yes - Health Care Proxy No qualifying data available. Discharge Vitals Temperature: 97.9 DegF Height: 172.7 cm Pulse Rate: 75 bpm Weight: 124.8 kg Respiratory Rate: 16 br/min Body Mass Index:??41.84 kg/m2??Critical Systolic Blood Pressure: 117 mm Hg Body surface area: 2.45 Systolic Blood Pressure: 117 mm Hg ?? Diastolic Blood Pressure: 83 mm Hg ?? Diastolic Blood Pressure: 83 mm Hg ?? Oxygen Saturation: 97 % ?? Studies Pending All tests and labs ordered during this hospital stay have been completed unless listed below. Pleasediscuss all pending results with your provider listed above in these instructions. ?? No incomplete studies found What to do next Instructions From Your Doctor Discharge instructions Continue taking your home medications as you were doing before. Consider following up with??acute pain services for??steroid injection??to help with the pain ?? Follow-up appointment Follow-up with your primary care physician within 1 to 2-week of discharge. ??Call their office for appointment Discharge Orders Activity:??as tolerated Wound Care:??none Code Status:?? Full Resuscitation Condition:??stable Prognosis:??Fair You Need to Schedule the Following Appointments Follow Up with??Hao MELCHOR, Evelyn Ackerman When??Within 1 week: call to discuss follow up visit Why: call office for follow up appointment. Where: [address] [place] [address]- Discharge Medications BARB CAVANAUGH :1970 Visit Date:08/29/2022 Medications: Please continue your medications until treatment is completed or stopped by your provider. Medications not listed below should be discontinued. Discuss any questions related to medications with your provider. What How Much When Instructions Next Dose Unchanged Albuterol (ProAir HFA 90 mcg/ inh inhalation aerosol) 2 puff(s) Inhalation As needed for Wheezing/Shortness of Breath every 4-6 hours ?? as needed for wheezing Unchanged Amlodipine (amLODIPine 10 mg oral tablet) 1 tab(s) Oral Daily 09/03@9am Unchanged Aspirin (Aspirin Low Dose 81 mg oral delayed release tablet) 1 tab(s) Oral Daily 09/03@9am Unchanged BuPROpion (Wellbutrin XL 150 mg/ 24 hours oral tablet, extended release) 3 tab(s) Oral Every 24 hours 1217@9am Unchanged Docusate (DOK sodium 100 mg oral capsule) 1 capsule Oral Daily as needed for as needed for constipation as needed Unchanged Ergocalciferol (Vitamin D2 50,000 intl units (1.25 mg) oral capsule) 1 capsule Oral Every 7 days Monday ?? 09/06@9am Unchanged Finasteride (finasteride 5 mg oral tablet) 1 tab(s) Oral Daily 09/03@9am Unchanged Fluticasone Nasal (fluticasone 50 mcg/ inh nasal spray) 1 spray(s) Nares, Both Daily 09/03@9am Unchanged Gabapentin (gabapentin 300 mg oral capsule) 3 capsule Oral 3 times a day 09/02@3pm Unchanged Insulin Aspart (NovoLOG FlexPen 100 units/ mL injectable solution) 4-12 UNITS Subcutaneous Injection 3 times a day before meals 150-199= 4 units 200-249= 6 units 250-299= 8 units 300-349= 10 units 350-399= 12 units Call MD <70 or >400 ?? Unchanged insulin degludec (Tresiba FlexTouch 100 units/ mL subcutaneous solution) 30 unit(s) Subcutaneous Injection Daily at Bedtime at bedtime Unchanged Lactobacillus GG ([facility] Rx #2 and Gaikai oral capsule) 1 capsule Oral Twice a day 09/02@9pm Unchanged Lamotrigine (lamotrigine 100 mg oral tablet) 1 tab(s) Oral Every 12 hours 12@6pm Unchanged Loratadine (loratadine 10 mg oral tablet) 1 tab(s) Oral Daily 09/03@9am Unchanged Lorazepam (LORazepam 2 mg oral tablet) 1 tab(s) Oral 3 times a day 12@4pm Unchanged Nystatin Topical (Nystop 684234 u/ gm powder) 1 toshia Topically Twice a day 09/02@9pm Unchanged Ondansetron (ondansetron 4 mg oral tablet, disintegrating) 1 tab(s) Oral Every 8 hours as needed for as needed for nausea/vomiting as needed Unchanged Oxybutynin (oxybutynin 10 mg/ 24 hr oral tablet, extended release) 1 tab(s) Oral Daily 09/03@9am Unchanged Oxycodone (oxyCODONE 20 mg oral tablet) 1 tab(s) Oral Every 5 hours as needed for Pain , Severe Max 5/ Day ?? as needed Unchanged Oxycodone (OxyCONTIN 40 mg oral tablet, extended release) 1 tab(s) Oral Every 12 hours 12@9pm Unchanged Pantoprazole (pantoprazole 40 mg oral delayed release tablet) 1 tab(s) Oral Daily 12@9am Unchanged Polyethylene Glycol 3350 (MiraLax oral powder for reconstitution) 17 gram Oral Daily as needed for Constipation dissolve in water before taking ?? as needed Unchanged Propranolol (propranolol 120 mg oral capsule, extended release) 1 capsule Oral Daily 12@9am Unchanged Rosuvastatin (rosuvastatin 40 mg oral tablet) 1 tab(s) Oral Daily at Bedtime 12/16@9pm Unchanged Zolpidem (zolpidem 10 mg oral tablet) 1 tab(s) Oral Daily at Bedtime 12/16@9pm Test Results Below is a partial list of the most recent Laboratory test results done prior to this discharge. You may have had other tests and procedures not included in this list. Please discuss all test results with your provider. Amphetamine Urine Screen (08/22/2022) ???Amphetamine Screen, Urine - NONE DETECTED Barbiturate Urine Screen (08/22/2022) ???Barbiturate Screen, Urine - NONE DETECTED Benzodiazepine Urine Screen (08/22/2022) ???Benzodiazepine Screen, Urine - NONE DETECTED BUN (08/29/2022) ???BUN - 23 mg/dL Calcium Level (08/29/2022) ???Calcium - 9.6 mg/dL Cannabinoid Urine Screen (08/22/2022) ???Cannabinoid Screen, Urine - NONE DETECTED CBC w/ Differential (08/29/2022) ???WBC - 9.1 k/mm3???RBC - 4.13 m/mm3???Hgb - 12.2 Gm/dL???Hct - 37.2 %???MCV - 90.1 femtoliters???MCH - 29.5 pg???MCHC - 32.8 g/dL???Platelet Count - 306 k/mm3???RDW-SD - 45.3 femtoliters???MPV - 10.1femtoliters???Nucleated RBC (Automated) - 0.0 #/100 WBC'S???Abs. NRBC - 0.0 k/mm3???Abs. Neut - 7.0 k /mm3???Abs. Lymph - 1.4 k/mm3???Abs. [place] - 0.5 k/mm3???Abs. Eo - 0.2 k/mm3???Abs. Baso - 0.0 k/mm3???Neut % - 76.7 %???Lymph % - 15.1 %???[place] % - 5.4 %???Eos % - 2.2 %???Baso % - 0.3 %???Imm Gran - 0.3 %???Abs. Imm Gran - 0.0 k/mm3 Cocaine Urine Screen (08/22/2022) ???Cocaine Metabolite Screen, Urine - NONE DETECTED COVID-19 (2019 Novel Coronavirus) PCR (09/01/2022) ???COVID-19 PCR Specimen Source - NASAL???COVID-19 PCR Result - NEGATIVE COVID-19, RSV, and Flu A/B, Rapid PCR (08/22/2022) ???Influenza A PCR - NEGATIVE???Influenza B PCR - NEGATIVE???RSV PCR - NEGATIVE???COVID-19 PCR Specimen Source - NASAL???COVID-19 PCR Result - NEGATIVE Creatinine (08/29/2022) ???Creatinine-Blood - 1.0 mg/dL???Estimated GFR Creatinine - 71 ML/MIN/1.73 M2 Electrolytes (08/29/2022) ???Sodium - 134 mmol/L???Potassium - HEMOLYZED???Chloride - 98 mmol/L???Bicarbonate Level - 23 mmol/L???Anion Gap - 13 Glucose Level (08/29/2022) ???Glucose Level - 128 mg/dL GLUCOSE POC (09/02/2022) ???Glucose, POC - 167 mg/dL HOLD GREEN TUBE (08/29/2022) ???Hold Green Top - SPECIMEN DISCARDED AFTER 1 WEEK Opiate Screen Urine (08/22/2022) ???Opiate Screen, Urine - NONE DETECTED Potassium Level (08/29/2022) ???Potassium - 4.8 mmol/L Allergies (NKA means No Known Allergies) Fish MetFORMIN (Eqv-Glumetza) Tylenol acetaminophen??(extremely itchy) shellfish Problems Active Problems??(28) Allergic rhinitis?? Anxiety and depression?? Anxiety disorder?? asthma?? Bipolar illness?? Cellulitis?? Chronic back pain?? chronic back pain?? CKD (chronic kidney disease)?? Depressive disorder?? Diabetes?? FSGS (focal segmental glomerulosclerosis)?? GERD (gastroesophageal reflux disease)?? h/o appendectomy?? h/o oopherectomy?? Hyperlipidemia?? Hypertension?? hypertension?? Insomnia?? Insulin dependent type 2 diabetes mellitus?? Iron deficiency?? Morbid obesity?? Overactive bladder?? Severe obesity?? Tobacco dependence syndrome?? Urinary incontinence?? Vitamin D deficiency?? Weakness?? Education Materials Below is the list of Educational Leaflet Providered with your Discharge Instructions. Depression: Tips to Help Yourself?? Depression?? Valuables and Belongings I fully understand and agree that [facility] accepts no responsibility for all my personal property including clothing, toilet articles, radios, jewelry, dentures, hearing aids, rings, money, or any other property that is in my possession or is brought to me after admission. I understand certain valuables may be placed in a hospital safe for a short period of time. I understand that the hospital is not liable for loss or damage due to accident, fire, or other natural occurrence while said property is in the safe. I accept full responsibility for any personal property that I keep with me, and will not hold the hospital responsible in case of loss or disappearance. I acknowledge that i have been encouraged to send valuables and belongings home. ?? Safe envelope number: [id number] Disposition of Belongings: Valuables Locked Date for Pt to Sign Valuables/Belongings: 08/22/22 02:28:00 ?? Other Discharge Information ? Case Management Discharge Plan?? Discharge Plan?? Discharge Agency Information?? Discharge Level of Care at Discharge: Homehealth/VNA Name of Agency #1: [facility] [phone] Discharge Transportation Arranged: [facility] [address] [facility] ??[phone] Agency Optimization Analyst #1: Sharifa Bryan, clinical liaison, [facility] Mode of Transportation Arranged: Ambulance Service Categories #1: Occupational Therapy, Halfway Discharge VNA/Hospice/Home Care: [facility] [address] [place] [address] Dr Scott [address] [place] [address] Service Comments #1: [facility], your current agency, will provide you with home chcf and occupational therapy services. The agency will call you to schedule a time for your first home nursing visit. They will assess you for home physical therapy at a later date. ?? Name of Agency #2: [facility] Clinical Response Unit/Member Services ?? Agency Optimization Analyst #2: Member Services [phone] ?? Service Categories #2: locker plant attendant, Other: [facility] posthospitalization nursing check in ?? Service Comments #2: Your [facility] team will continue to follow you in the community, and will provide a posthospitalization nursing assessment by phone. You can also contact [facility] Member Services or your school child care attendant with any concerns about your current [employer] services. ?? Pulmonary Rehab Status?? Pulmonary Rehab Discharge Status?? Respiratory Rate: 16 br/min ? Common Emergency Awareness Tips IS IT A STROKE? Act FAST and Check for these signs: FACE Does the face look uneven? ARM Does one arm drift down? SPEECH Does their speech sound strange? TIME Call at any sign of stroke ?? Heart Attack Signs Chest discomfort: Most heart attacks involve discomfort in the center of the chest and lasts more than a few minutes, or goes away and comes back. It can feel like uncomfortable pressure, squeezing, fullness or pain. Discomfort in upper body: Symptoms can include pain or discomfort in one or both arms, back, neck, jaw or stomach. Shortness of breath: With or without discomfort. Other signs: Breaking out in a cold sweat, nausea, or lightheaded. Remember, MINUTES DO MATTER. If you experience any of these heart attack warning signs, call to get immediate medical attention! ?? Smoking can increase your chances of developing chronic health problems and can cause harmful effects to other family members in your house. If you smoke, you are strongly encouraged to quit. Please call [employer] at [phone] or [phone] (4700) or log in to [email or web address] for referrals to smoking cessation programs. ?? The National Suicide Prevention Hotline is available 10/04 if you or someone you know needs to find areason to keep living. By calling 6-291-070-[employer] (6701) you'll be connected to a skilled, trained counselor at a crisis center in your area. INPATIENT DISCHARGE INSTRUCTIONS SIGNATURE PAGE BARB CAVANAUGH Location:[facility] Registration Date and Time:08/29/2022 10:57 EST Primary Care Physician: Evelyn Bui MD, I BARB CAVANAUGH, have received the above patient education materials/instructions and have verbalized understanding. If ambulance or transport services are being used I further acknowledge being given a choice of service. ?? If you need to contact me, please call me at this number: . Patient/Quitline Counselor Name: Patient/Quitline Counselor Signature: Relationship to Patient: Witness Name/Signature: Date: Criss Parks RN: PERFORM Event Display: Patient Education Leaflets Authored Date: [id number] Depression: Tips to Help Yourself ?? 95860 Depression: Tips to Help Yourself As your healthcare providers help treat your depression, you can also help yourself. Keep in mind that your illness affects you emotionally, physically, mentally, and socially. So full recovery will take time. Take care of your body and your soul, and be patient with yourself as you get better. Self-care ??? Educate yourself. Read about treatment and medicine options. If you have the energy, attend local conferences or support groups. Keep a list of useful websites and helpful books and use them as needed. This illness is not your fault. Don???t blame yourself for your depression. ??? Manage early symptoms. If you notice symptoms returning, have triggers, or identify other factors that maylead to a depressive episode, get help as soon as possible. Ask trusted friends and family to monitor your behavior and let you know if they see anything of concern. ??? Work with your provider. Find aprovider you can trust. Communicate honestly with that person. Share information on your treatment for depression and your reaction to medicines. You may need to try different medicines before finding the right one. ??? Be prepared for a crisis. Know what to do if you have a crisis. Keep the phone number of a crisis hotline handy. Know where your community's urgent care centers and the closest emergency department are. ??? Hold off on big decisions. Depression can cloud your judgment. So wait until you feel better before making major life decisions. These include changing jobs, moving, making an expensive purchase, or getting or . ??? Be patient. Recovering from depression is a process. Don???t be discouraged if it takes some time to feel better. ??? Keep it simple. Depression saps your energy and concentration. So you won???t be able to do all the things you used to do. Set small goals and do what you can. ??? Be with others. Don???t isolate yourself???you???ll only feel worse.Try to be with other people. And take part in fun activities when you can. Go to a movie, ballgame, mandaen service, or social event. Talk openly with people you can trust. And accept help when it???s offered. ?? Take care of your body People with depression often lose the desire to take care of themselves. That only makes their problems worse. During treatment and afterward, make a point to: ??? Exercise. It???s a great way to takecare of your body. And studies have shown that exercise helps fight depression. Aim for 30 minutes of moderate activity a day. Walking in small blocks of time (5-10 minutes) is a good way to start, butanything that gets you moving (gardening, house cleaning) counts. ??? Not use drugs or alcohol. These may ease the pain in the short term. But they???ll only make your problems worse in the long run. ??? Get relief from stress. Ask your healthcare provider for relaxation exercises and techniques to help ease stress. Consider activities like meditation, yoga, progressive muscle relaxation, or moy chi.??? Eat right. A balanced and healthy diet helps keep your body healthy. ??? Get adequate sleep. Aimfor 8 hours per night. Too much or too little sleep can cause other physical and emotional problems. ?? Last Reviewed Date: 2021 ?? [id number] [employer]. All rights reserved. This information is not intended as a substitute for professional medical care. Always follow your healthcare professional's instructions. ??Criss Parks RN: PERFORM Event Display: Patient Education Leaflets Authored Date: [id number] Depression ?? [id number] Depression Depression is a very common mental health problem. It's not just a state of being unhappy or sad. It's a true disease. The cause seems to be linked to a change in chemicals that send signals in the brain. These things increase a person???s risk of depression: ??? A family history of depression, alcoholism, or suicide ??? Chronic illness ??? Chronic pain ???Migraine headaches ??? High emotional stress Depression may be easier to see in others. You may have a hard time seeing it in yourself. It can show in many physical and emotional ways. These include: ??? Loss of appetite ??? Overeating ??? Not being able to sleep ??? Sleeping too much ??? A lot of tiredness not linked to physical activity ??? Restlessness or irritability ??? Slowness of movement or speech ??? Feeling sad or withdrawn ??? Loss of interest in things you once enjoyed ??? Trouble??concentrating, remembering,??or making decisions ??? Thoughts of harming or killing yourself, or thoughts that life is not worth living ??? Low self-esteem The treatment for depression may include both medicine and psychotherapy. Antidepressants can ease symptoms. They can also make it easier for you to do daily tasks. Therapy can offer emotional support. It can also help you understand things that may be causing the depression. Home care ??? Ongoing care and support help people manage this disease. Find a healthcare provider and therapist who meet your needs. Get help when you feel like you may be getting ill. ??? Be kind toyourself. Make it a point to do things that you enjoy. This may be gardening, walking in nature, or going to a movie. Reward yourself for small successes. ??? Take care of your body. Eat a balanced diet. Eat foods low in saturated fat. Eat a lot of fruits and vegetables. Exercise at least 3 times a week for 30 minutes. Even mild to moderate exercise like brisk walking can make you feel better. ??? Take medicine as prescribed. Don't stop your medicine or change the dose unless you talk with your healthcare provider. ??? Once you start medicine, expect your symptoms to get better slowly. Depression will lift over time. It doesn't get better right away. Ask your healthcare provider how long it will take for a medicine to start working. ??? Don't share your medicine. Don???t use someone else's medicine. ??? Tell your healthcare providers all the medicines you take. This includes prescription and sjmf-eix-pwlectg medicines. It includes vitamins and herbal supplements. Some supplements can interact with medicines. They can cause dangerous side effects. Ask your pharmacist about medicine interactionswhen you have questions. ??? Don't make major decisions until you feel better. This includes things such as a job change, a divorce, or a marriage. ??? Don't drink alcohol. It can make depression worse. ??? Talk with your family and??trusted friends??about your feelings and thoughts.??Ask them to helpyou notice behavior changes early. You can then get help and, if needed, your medicine can be changed. ??? Talk with your healthcare provider if you are not getting better. They may change your medicine or have you try another treatment. ?? Follow-up care Follow up with your healthcare provider as advised. ?? Crisis care Call 988 if you have thoughts of harming yourself or others. When you call or text 988, you will beconnected to trained crisis counselors. An online chat option is also available. [employer] is free and available 10/04. 988 counselors will work with 911 to help you get the care you need. Call 988 if you: ??? Have suicidal thoughts, a suicide plan, and a way to carry out the plan ??? Have serious thoughts of hurting someone else ??? Have trouble breathing ??? Are??very confused ??? Feel very drowsy or have??trouble awakening ??? Faint ??? Have new chest pain that becomes more severe, lasts longer, or spreads into your shoulder, arm, neck, jaw, or back ?? When to get medical care Call your healthcare provider right away if any of these happen: ??? Your symptoms get worse ??? You have extreme depression, fear, anxiety, or anger toward yourself or others ??? You feel out of control ??? You feel that you may try to harm yourself or another ??? You hear voices other people don't hear ??? You see things other people don't see ??? You don't sleep or eat for 3 days in a row ??? Friends or family express concern over your behavior and ask you to get help ?? Last Reviewed Date: 2021 ?? [id number] [employer]. All rights reserved. This information is not intended as a substitute for professional medical care. Always follow your healthcare professional's instructions. ?? MR Lumbar spine WO contrast Yovani Cole MD: VERIFY Yovani Cole MD: VERIFY Event Display: Result: Authored Date: [id number] MRI Lumbar Spine W/O Contrast INDICATION: Reason: Other:; Low back pain, cauda equina syndrome suspected; Clinical Question(s): Cord Cauda Equina Compression; Special Instructions: has to be done with Anesthesia-coordinate with anesthesia at EXT: [address] Cruz; Order Comment: Please see Reference Text for complete list of cont raindications Cord/Cauda Equina Compression TECHNIQUE: A limited MRI examination of the lumbar spine was performed utilizing noncontrast sagittal T1, sagittal T2, and sagittal STIR images which were checked by the inpatient neuroradiologist. COMPARISON: 08/18/2022 FINDINGS: NUMBERING: The study assumes 5 kgr-zmc-ormybyj lumbar type vertebral bodies. ALIGNMENT, VERTEBRAE, MARROW, AND DISCS: A mild leftward curvature of the lumbar spine is again noted. No new subluxation is noted on the sagittal images. No new marrow. CONUS: The conus is normal in signal and contour, with normal level of termination at L1. No epidural fluid collection or cauda equina compression. PARASPINAL TISSUES: Fatty atrophy of the posterior paraspinal musculature. DETAILED FINDINGS BY LEVEL: A concentric disc-osteophyte complex at L3-L4 is again noted, and a right subarticular disc extrusion extending into the right lateral recess of L4 is probably unchanged based on the sagittal images. IMPRESSION: No evidence of cauda equina compression. A right subarticular disc extrusion extending inferiorly at L3-L4 is probably unchanged from the study dated 08/18/2022 based on the sagittal images. WSN: [id number] Ordering Physician: Sarah Medina Dictated By: Yovani Cole MD Dictated Date/Time: 09/01/22 10:39 a Reviewed By: Yovani Cole MD Signed By: Yovani Cole MD Signed Date/Time: 09/01/22 10:39 am Transcribed By: LESLEE Transcribed Date/Time: 09/01/22 10:[address] Lumbar spine WO contrast BHSPowerscribe , CIS S: TRANSCRIMIRELLA Jefferson[Radiology] , Amninder: Irma Mensah MD: VERIFY Event Display: Result: Authored Date: [id number] CT Lumbar Spine W/O Contrast Hx of Present Illness: SECTION 12; Reason: Other:; Spine fracture, lumbar, traumatic; Clinical Question(s): Fracture Dislocation; Order Comment: CLINICAL QUESTION: Fracture/Dislocation TECHNIQUE: Thin section axial images were acquired through the lumbar spine. Bone and soft tissue algorithms were reconstructed along with coronal and sagittal reformats. Weight-based protocol using automatic tube modulation was used to optimize exposure parameters. CTDIvol Body: 60.10 mGy, DLP Body: 1885 mGy*cm. COMPARISON: 08/16/2022. FINDINGS: Biological Scientist View Findings, Lines and Tubes: None. Spine: No fractures or bone lesion. There is scoliotic curvature of the spine which is levoconvex L3-L4. Minimal L2-L3 retrolisthesis. Multilevel loss of disc height most severe at L3-L4. Soft tissues: No acute abnormality in the paravertebral soft tissues. Eccentric calcified aortoiliac atherosclerosis. Visualized kidneys appear unremarkable. Mild central canal narrowing at L2-L3 due to disc osteophyte complex. Moderate central canal narrowing at L3-L4 due to disc osteophyte complex. No significant foraminal narrowing. IMPRESSION: No acute fracture or subluxation. Degenerative changes as described above. I have personally reviewed the images and I agree with this report. WSN: [id number] Ordering Physician: Franck Howard Dictated By: Ronny[Radiology] Heidi MELCHOR Dictated Date/Time: 08/22/22 7:18 am Reviewed By: Irma Ramires MD Signed By: Irma Ramires MD Signed Date/Time: 08/22/22 7:23 am Transcribed By: LESLEE Transcribed Date/Time: 08/22/22 6:55 am Patient Care team information Care Team PersonnelName: Dariana Cross RN Position: [facility] RN Member Role: Primary Care Nurse Name: Jaqueline Mata RN Position: [facility] RN Member Role: Primary Care Nurse Name: Baldemar Egan MD Position: [facility] Renal Member Role: Lifetime Consulting Physician Address: Address: [address] [place] [address], [address] Name: Harriet Smith RN Position: [facility] RN Member Role: Primary Care Nurse Name: Leydi Aldana RN Position: [facility] RN Member Role: Primary Care Nurse Name: Sandie Danielle RN Position: [facility] RN Member Role: Primary Care Nurse Name: Peter Knight RN Position: [facility] RN Member Role: Primary Care Nurse Name: Katie Kirby RN Position: [facility] RN Member Role: Primary Care Nurse Name: Nohemy Castaneda RN Position: [facility] RN Member Role: Primary Care Nurse Name: Therese Millan RN Position: [facility] PCO RN Member Role: Primary Care Nurse Name: Zaki Laurent RN Position: [facility] RN Member Role: Primary Care Nurse Name: Crystal Lo RN Position: [facility] RN Member Role: Primary Care Nurse Name: Lynda Pittman RN Position: [facility] RN Member Role: Primary Care Nurse Name: Evelyn Bui MD Position: [facility] Physician (General Medicine) Member Role: PCP Address: Address: [address] [place] [address]- Name: Tre Wilkes RN Position: [facility] RN Member Role: Primary Care Nurse Name: [place] RN Position: [facility] RN Member Role: Primary Care Nurse Name: Deborah Way RN Position: [facility] RN Member Role: Primary Care Nurse Name: Floyd Escalona RN Position: [facility] RN Member Role: Primary Care Nurse Name: Mili Osman RN Position: [facility] RN Member Role: Primary Care Nurse Name: Lili Colón RN Position: [facility] RN Member Role: Primary Care Nurse Name: Chari Kearney RN Position: [facility] RN Member Role: Primary Care Nurse Name: Palak Miller RN Position: [facility] RN Member Role: Primary Care Nurse Name: Jann Joyce RN Position: [facility] RN Member Role: Primary Care Nurse Name: Maribeth Santos RN Position: [facility] RN Member Role: Primary Care Nurse Name: Joan Crews Position: [facility] RN Member Role: Primary Care Nurse Name: Marilee Real RN Position: [facility] RN Member Role: Primary Care Nurse Name: Alex Lizama RN Position: [facility] RN Member Role: Primary Care Nurse Name: Tom Lora RN Position: [facility] RN Member Role: Primary Care Nurse Name: Jen Jones Position: [facility] RN Member Role: Primary Care Nurse Name: Flavia Voss RN Position: [facility] RN Member Role: Primary Care Nurse Name: Mariza Tariq RN Position: [facility] RN Member Role: Primary Care Nurse Name: Edith Goodwin RN Position: [facility] RN Member Role: Primary Care Nurse Name: Layne Aceves Position: [facility] RN Member Role: Primary Care Nurse Name: Madelin Cervantes RN Position: [facility] RN Member Role: Primary Care Nurse Name: Faith Noyola RN Position: [facility] RN Member Role: Primary Care Nurse Name: Dian Garcia RN Position: [facility] RN Member Role: Primary Care Nurse Name: Isela Tsang Position: [facility] RN Member Role: Primary Care Nurse Name: Isabelle Tyler RN Position: [facility] SN RN Member Role: Primary Care Nurse Name: Alaina Blackmon RN Position: [facility] RN Member Role: Primary Care Nurse Name: Justine Garcia RN Position: [facility] RN Member Role: Primary Care Nurse Name: Susannah Iqbal RN Position: [facility] RN Member Role: Primary Care Nurse Name: Jimena Sinclair Position: [facility] RN Member Role: Primary Care Nurse Name: Arti Rodas RN Position: [facility] RN Member Role: Primary Care Nurse Name: Miesha Fan LPN Position: [facility] RN Member Role: Primary Care Nurse Name: Sabina Rodriguez RN Position: [facility] RN Member Role: Primary Care Nurse Name: Bethany Gonzalez RN Position: [facility] RN Member Role: Primary Care Nurse Name: Jamaal Cox MD Position: [facility] Renal MD Member Role: Lifetime Consulting Physician Address: Address: [address] [facility] [address] [facility], [address] Name: Milton Lopez RN Position: [facility] RN Member Role: Primary Care Nurse Name: Alva Salas RN Position: [facility] RN Member Role: Primary Care Nurse Name: Tianna Willett RN Position: [facility] RN Member Role: Primary Care Nurse Name: Therese Brand RN Position: [facility] RN Member Role: Primary Care Nurse Name: Itzel Morrissey RN Position: [facility] RN Josse Member Role: Primary Care Nurse Name: Sandie Mendoza LPN Position: [facility] RN Member Role: Primary Care Nurse Name: Dionte Mendoza RN Position: [facility] RN Member Role: Primary Care Nurse Name: Sandra Tobin RN Position: [facility] RN Member Role: Primary Care Nurse Name: Tamiko Nicole RN Position: [facility] RN Member Role: Primary Care Nurse Name: Romelia Nayak RN Position: [facility] RN Member Role: Primary Care Nurse Name: Madelin Fu RN Position: [facility] AMB Nurse Member Role: Primary Care Nurse Name: Rand Chacko RN Position: [facility] RN Member Role: Primary Care Nurse Name: Juancarlos Godoy MD Position: [facility] Renal MD Member Role: Lifetime Consulting Physician Address: Address: [address] [place] [address] [facility] [place], [place] [id number] Name: Alaina Delcid Position: [facility] RN Member Role: Primary Care Nurse Name: Delmy Robertson RN Position: [facility] RN Member Role: Primary Care Nurse Name: Andria Ortiz RN Position: [facility] RN Member Role: Primary Care Nurse Name: Shruthi Thompson RN Position: [facility] RN Supv Member Role: Primary Care Nurse Name: Amarilys Thompson RN Position: [facility] RN Member Role: Primary Care Nurse Name: Donya Spaulding RN Position: [facility] RN Member Role: Primary Care Nurse Name: Sandie Ford RN Position: [facility] RN Member Role: Primary Care Nurse Name: Robert Vaughan RN Position: [facility] RN Member Role: Primary Care Nurse Name: Megan Snell RN Position: [facility] RN Member Role: Primary Care Nurse Name: Ayana Lomax RN Position: [facility] Hospital Casing Inspector Member Role: Primary Care Nurse Name: Maximiliano Ching RN Position: [facility] RN Member Role: Primary Care Nurse Name: Geraldine Holt RN Position: [facility] RN Member Role: Primary Care Nurse Name: Constance Elliott Position: [facility] RN Member Role: Primary Care Nurse Name: Christopher Ramon Position: [facility] RN Member Role: Primary Care Nurse Name: AnaD[facility]ar[facility] Attending Position: [facility] ED Medicine Name: Rebecca Pierce Position: [facility] ED TA [facility] Name: Itzel Driver RN Position: [facility] ED RN W/OE and Tasks Member Role: Patient Care Provider Name: Gloria Cavanaugh Position: [facility] ED OA Charge Member Role: ED Associate Care Team Related PersonsName: DARIA TATE Address: [address] [place] [address] Name: ROXPAULOFILIBERTO RomeroOB Address: home [address] [place] [address]
--- OUTSIDE RECORDS SUMMARY | 2022-09-17 11:14 | XMS_ITS | Continuity of Care Document ---
:1970 Author Organization [facility] Address [address] [place] [id number] Care Team Providers Name Role Phone Hao MELCHOR, Evelyn Ackerman Primary Care Physician Encounter [facility] [place] Date(s): 07/12/22 - 07/21/[address] [address] Encounter Diagnosis Back pain (Final) - 07/12/22 Discharge Disposition: A-D/C Home Attending Physician: Destin MELCHOR, Raymon Ackerman Admitting Physician: Megan Lima MD Referring Physician: Not on Staff, Referring MD Allergies, Adverse Reactions, Alerts Substance Reaction Severity Status acetaminophen extremely itchy Active MetFORMIN (Eqv-Glumetza) Active shellfish1 Active Tylenol Active Fish2 Active 1patient reports itchy/tingling [id number] reports itchy/tingling throat Immunizations Given and Recorded [...] Start Date: 06/23/22 Stop Date: 07/23/22 Status: OrderedamLODIPine 10 mg oral tablet 10 mg, Tablet, By Mouth, 07/21/22 9:00:00 EDT Start Date: 07/21/22 Stop Date: 07/21/22 Status: CompletedAspirin Low Dose 81 mg oral [...] ; Start Date: 04/12/22 Status: OrderedDilaudid Inj 0.2 mg, Injection, IV Push Slowly, Every 3 hours, PRN for Pain , Severe, STAT, 07/12/22 23:51:00 EDT Start Date: 07/12/22 Stop Date: 07/21/22 Status: DiscontinuedDocusate/Senna Tablet 1 tablet, By Mouth, 2 times a day, PRN Constipation, 0 Refills, Maintenance, 11/18/21 11:32:00 EST, Tablet, ; Start Date: 11/18/21 Status: Orderedfinasteride 5 mg oral tablet 1 tablet = 5 mg, By Mouth, Daily, 0 Refills, Maintenance, 01/26/20 10:51:00 EDT, Tablet Start Date: 01/26/20 Status: Orderedgabapentin 300 mg oral capsule 900 mg, Capsule, By Mouth, 07/21/22 9:00:00 EDT Start Date: 07/21/22 Stop Date: 07/21/22 Status: Completedgabapentin 300 mg oral capsule 3 [...] 15:30:00 EDT, Route to Pharmacy Electronically, [id number], Partial fill upon patient request if the [...] EDT, ; Start Date: 02/08/22 Status: OrderedNystop 130948 u/gm powder 1 application, Topically, 2 times [...] release 120 mg, CR Capsule, By Mouth, 07/21/22 9:00:00 EDT Start Date: 07/21/22 Stop Date: 07/21/22 Status: Completedrosuvastatin 40 mg oral tablet 1 [...] for Microbiology Reports Name Date Blood Culture 07/13/22 Blood Culture #2 07/13/22 Microbiology Reports TEST:Blood Culture STATUS:Auth (Verified) BODY SITE: SOURCE:Blood COLLECTED DATE/TIME:07/13/22 3:11 AMBlood Culture SPECIMEN DESCRIPTION : BLOOD NO SITE SPECIAL REQUESTS : NONE CULTURE : NO GROWTH 5 DAYS. REPORT STATUS : FINAL 07/18/2022TEST:Blood Culture, Second Order STATUS:Auth (Verified) BODY SITE: SOURCE:Blood COLLECTED DATE/TIME:07/13/22 1:53 AMBlood Culture, Second Order SPECIMEN DESCRIPTION : BLOOD L HAND SPECIAL REQUESTS : NONE CULTURE : NO GROWTH 5 DAYS. REPORT STATUS : FINAL 07/18/2022 Vital Signs Most recent to oldest 1 2 3 [Reference Range]: Height 172.7 cm 172.7 cm 172.7 cm (07/21/22 4:46 AM) (07/20/22 10:29 PM) (07/20/22 8: 04 PM) Oxygen Saturation [94-100 100 % 100 % 100 % %] (07/21/22 8:00 AM) (07/21/22 4:46 AM) (07/20/22 10: 29 PM) Pulse Rate [55-90 bpm] 98 bpm 98 bpm 78 bpm *H* *H* (07/21/22 4:46 AM ) (07/21/22 9:13 AM) (07/21/22 8:00 AM) Blood Pressure 153/87 mm Hg 153/87 mm Hg 153/87 mm Hg [90-138/55-84 mm Hg] *H* *H* *H* (07/21/22 9:15 AM) (07/21/22 9:13 AM) (07/21/22 8:0 0 AM) Respiratory Rate [16-30 17 br/min 18 br/min 18 br/mi n br/min] (07/21/22 9:14 AM) (07/21/22 8:00 AM) (07/21/22 6:5 0 AM) Temperature [96.8-100.4 97.1 DegF 98.3 DegF 98.8 Deg F DegF] (07/21/22 8:00 AM) (07/21/22 4:46 AM) (07/20/22 10: 29 PM) Liters per Minute 0 L/min 0 L/min 0 L/min (07/15/22 4:14 AM) (07/15/22 12:06 AM) (07/14/22 8:33 PM) Mode of Delivery (Oxygen) Room air Room air Room a ir (07/21/22 8:00 AM) (07/21/22 4:46 AM) (07/20/22 10: 29 PM) Blood pressure sites Arm, right Arm, right Arm, right (07/21/22 8:00 AM) (07/21/22 4:46 AM) (07/20/22 10: 29 PM) Temperature Route Temporal Temporal Temporal (07/21/22 8:00 AM) (07/21/22 4:46 AM) (07/20/22 10: 29 PM) Social History Social History Type Response Smoking Status Never (less than 100 in life time) entered on: 05/13/22 Sex Patient Care team information PersonnelName: Evelyn Bui MD Address: Address: [address] [place], [place] [address]
--- OUTSIDE RECORDS SUMMARY | 2022-09-17 11:14 | XMS_ITS | Encounter Summary ---
:1970 External Reference #:[id number] Author Care Team Providers Name Role Phone Cca Primary Care Referring Provider [phone] Reason for Visit Abdominal Pain Assessment and Plan Assessment Note I have reviewed and agree with the asse ssment and plan as documented by the research study assistant. I provided real-time medical direction for this [...] ? ? amlodipine 10 mg tablet ? amlodipine 5 mg tablet ? amoxicillin 500 mg-potassium clavulanate 125 mg tablet ? amoxicillin 875 mg-potassium clavulanate 125 mg tablet ? TAKE 1 TABLET BY MOUTH TWO TIMES A DAY Antifungal (clotrimazole) 1 % topical cream ? aspirin 81 mg tablet,delayed release ? [...] ? enoxaparin 150 mg/mL subcutaneous syringe ? ergocalciferol (vitamin D2) 1,250 mcg (50,000 unit) ca psule ? ferrous sulfate 325 mg (65 mg iron) tablet,delayed rel ease ? finasteride 5 mg tablet ? Flovent HFA 110 mcg/actuation aerosol inhaler ? fluticasone propionate 50 mcg/actuation nasal spray,cid spension ? FreeStyle Marienthal Lite kit ? FreeStyle Lancets 28 gauge ? FreeStyle Lite Strips ? gabapentin 300 mg capsule ? hydromorphone 2 mg tablet ? lamotrigine 100 mg tablet ? lamotrigine 200 mg tablet ? lamotrigine 25 mg tablet ? lisinopril 5 mg tablet ? loratadine 10 mg tablet ? lorazepam 2 mg tablet ? TAKE 1 TABLET BY MOUTH 3 TIMES DAILY NEEDED FOR 30 DAYS. metoclopramide 10 mg tablet ? metronidazole 500 mg tablet ? morphine 15 mg immediate release tablet ? TAKE 1 TABLET BY MOUTH EVERY 4 HOURS NEEDED FOR PA IN nabumetone 500 mg tablet ? nicotine 21 mg/24 hr daily transdermal patch ? Novolog FlexPen U-100 Insulin aspart 100 unit/mL (3 mL [...] TABLET BY MOUTH EVERY 12 HOURS OxyContin 40 mg tablet,crush resistant,extended releas e ? pantoprazole 40 mg tablet,delayed release ? polyethylene [...] vancomycin 10 gram intravenous solution ? vancomycin 125 mg capsule ? vancomycin 5 gram intravenous solution ? vancomycin 500 mg intravenous solution ? vitamin A 10,000 unit capsule ? Vitamin C 500 mg tablet ? Vitamin D3 50 mcg (2,000 unit) [...] None recorded. Functional Status Unknown. Past Encounters Encounter Date Diagnosis Provider 06/24/2022 Diarrhea Roxane Crooks MD: [address] [place] [phone], Ph. History of Present Illness Note: <p><strong>HPI: [...]
--- OUTSIDE RECORDS SUMMARY | 2022-09-17 11:14 | XMS_ITS | Continuity of Care Document ---
:1970 Author Organization [facility] Address [address] [place] [id number] Care Team Providers Name Role Phone Hao MELCHOR, Evelyn Ackerman Primary Care Physician Encounter [facility] Date(s): 08/14/22 - 08/19/[address] [address]- Encounter Diagnosis Inadequate pain control (Final) - 08/14/22 Discharge Disposition: A-D/C Home Attending Physician: Rusty Galan DO Admitting Physician: Cruz Douglas MD Referring Physician: Not on Staff, Referring MD Allergies, Adverse Reactions, Alerts Substance Reaction Severity Status acetaminophen extremely itchy Active MetFORMIN (Eqv-Glumetza) Active shellfish1 Active Tylenol Active Fish2 Active 1patient reports itchy/tingling [id number] reports itchy/tingling throat Immunizations Given and Recorded [...] oral tablet 10 mg, Tablet, By Mouth, 08/19/22 9:00:00 EST Start Date: 08/19/22 Stop Date: 08/19/22 Status: CompletedAspirin Low Dose 81 mg oral delayed release tablet 1 tablet = 81 mg, By Mouth, Daily, # 30 tablet, 0 Refills, Maintenance, 08/14/22 23:26:00 EST, EC Tablet, Partial fill upon patient request if the prescription is for a schedule II opioid drug. Start Date: 08/14/22 Status: OrderedbuPROPion 450 mg/24 hours (XL) oral [...] mcg/inh nasal spray 1 sprays, Nares, Both, 2 times a day, # 16 Gm, 0 Refills, Maintenance, 08/14/22 23:20:00 EST, [place],Partial fill upon patient request if the prescription [...] oral capsule 900 mg, Capsule, By Mouth, 08/19/22 9:00:00 EST Start Date: 08/19/22 Stop Date: 08/19/22 Status: Completedlamotrigine 100 mg oral tablet 100 [...] day, PRN for anxiety, 0 Refills, Maintenance, 08/14/22 23:23:00EST, Tablet, Partial fill upon patient request if the prescription is for a schedule II opioid drug. Start Date: 08/14/22 Status: Orderedmetoclopramide 10 mg oral tablet 1 [...] EDT, ; Start Date: 02/08/22 Status: OrderedNystop 547690 u/gm powder 1 application, Topically, 2 times [...] tablet = 20 mg, By Mouth, Every 6 hours, PRN as needed for pain, 0 Refills, Maintenance, 08/14/22 23:21:00 EST, Tablet, Partial fill upon patient request if the prescription is for a schedule II opioid drug. Start Date: 08/14/22 Status: OrderedoxyCODONE 5 mg oral tablet 20 mg, Tablet, By Mouth, Every 6 hours, PRN for Pain , Severe, Routine, 08/17/22 15:32:00 EST Start Date: 08/17/22 Stop Date: 08/19/22 Status: DiscontinuedOxyCONTIN 40 mg oral tablet, extended release 40 mg, 1, tablet, By Mouth, Every 12 hours, Refills 0, Tot. Refills 0, Maintenance, 08/14/22 23:21:00 EST, Partial fill upon patient request if the prescription is for a schedule II opioid drug. Start Date: 08/14/22 Status: OrderedOxyCONTIN 40 mg oral tablet, extended release 40 mg, ER Tablet, By Mouth, 08/19/22 9:00:00 EST Start Date: 08/19/22 Stop Date: 08/19/22 Status: Completedpantoprazole 40 mg oral delayed release [...] release 120 mg, CR Capsule, By Mouth, 08/19/22 9:00:00 EST Start Date: 08/19/22 Stop Date: 08/19/22 Status: Completedrosuvastatin 40 mg oral tablet 1 tablet = 40 mg, By Mouth, Daily, # 60 tablet, 0 Refills, Maintenance, 08/14/22 23:24:00 EST, Tablet, Partial fill upon patient request if the prescription is for a schedule II opioid drug. Start Date: 08/14/22 Status: Orderedsimethicone 125 mg oral tablet, chewable 1 tablet = 125 mg, Chew, 4 times a day, PRN as needed, Maintenance, 02/08/22 11:00:00 EDT, Chew Tablet, ; Start Date: 02/08/22 Status: Orderedsulfamethoxazole-trimethoprim 800 mg-160 mg oral tablet 1 tablet, By Mouth, 2 times a day, 0 Refills, Maintenance, 08/14/22 23:20:00 EST, Tablet, Partial fill upon patient request if the prescription is for a schedule II opioid drug. Start Date: 08/14/22 Status: Orderedtamsulosin 0.4 mg oral capsule 0.4 [...] as needed for insomnia, 0 Refills, Maintenance, 08/14/22 23:24:00 EST, Tablet, Partial fill upon patient request [...] Confirmed Active depression Morbid obesity Confirmed Active Obese class II Confirmed Active Overactive bladder Confirmed Active Tobacco dependence Confirmed Active syndrome Urinary incontinence Confirmed Active Vitamin D deficiency Confirmed Active Results Orders for Microbiology Reports Name Date Urine Culture (URINE CULTURE) 08/15/22 Microbiology Reports TEST:Urine Culture STATUS:Auth (Verified) BODY SITE: SOURCE:URINE COLLECTED DATE/TIME:08/15/22 6:46 PMUrine Culture SPECIMEN DESCRIPTION : URINE SPECIAL REQUESTS : NONE CULTURE : >100,000 COL/ML ESCHERICHIA COLI This isolate was identified using Maldi-TOF system These AST results were performed on the Precysecan ID and AST system REPORT STATUS : FINAL 08/19/2022 ORGANISM >100,000 COL/ML ESCHERICHIA COLI This isolate was identified using Maldi-TOF system These AST results were performed on the Precysecan ID and AST system METHOD MIN. INHIB. CONC. (MCG/ML) AMPICILLIN SUSCEPTIBLE AMPICILLIN/SULBACTAM SUSCEPTIBLE AMOXICILLIN/CLAVULAN SUSCEPTIBLE CEFAZOLIN SUSCEPTIBLE CEFEPIME SUSCEPTIBLE CEFTRIAXONE SUSCEPTIBLE CIPROFLOXACIN SUSCEPTIBLE ERTAPENEM SUSCEPTIBLE GENTAMICIN SUSCEPTIBLE LEVOFLOXACIN SUSCEPTIBLE MEROPENEM SUSCEPTIBLE NITROFURANTOIN SUSCEPTIBLE PIPERACILLIN/TAZOBAC SUSCEPTIBLE TRIMETH/SULFAMETHOX SUSCEPTIBLE TETRACYCLINE SUSCEPTIBLERadiology Reports Exam Date Time Procedure Performing Provider Status 08/18/22 3:17 PM MRI Lumbar Spine W/O Contrast Nael Zimmer; Au th (Verified) Notes:(MRI Lumbar Spine W/O Contrast) Reason For Exam: Cauda Equina Syndrome RESULT: MRI Lumbar Spine W/O Contrast MRI Lumbar Spine W/O Contrast INDICATION: Reason: Cauda Equina Syndrome; Clinical Question(s): Cord Cauda Equina Compression; Order Comment: Please see Reference Text for complete list of contraindications Cord/Cauda Equina Compression TECHNIQUE: MRI of the lumbar spine was performed without intravenous contrast utilizing sagittal T1,sagittal T2, sagittal STIR, axial T1, and axial T2- weighted sequences. COMPARISON: MRI lumbar spine 07/19/2022. FINDINGS: NUMBERING: The study assumes 5 [id number] lumbar type vertebral bodies. ALIGNMENT, VERTEBRAE, MARROW, AND DISCS: Mild levoconvex curvature of the lumbar spine is noted. There is no significant subluxation in the sagittal plane. Vertebral body heights are preserved. Trace Modic 1 changes are again noted at L3-4. No suspicious marrow signal abnormality is seen. Multilevel Schmorl's nodes are noted. There is diffuse disc desiccation and mild loss of intervertebral disc spaces. CONUS: The conus is normal in signal and contour, with normal level of termination at L1. PARASPINAL TISSUES: Fibroid uterus is partially visualized. Multiple sigmoid diverticula are noted there is partial visualization of an 8 mm T2 hyperintense cyst in the posterior left hepatic lobe, as well as T2 hyperintense cysts in the left kidney measuring up to 2.1 cm in the upper pole. There is mild fatty atrophy of the posterior paraspinal musculature. Mild nonspecific edema is seen in the subcutaneous fat of the lower back. DETAILED FINDINGS BY LEVEL: T12-L1: Minimal central protrusion with annular fissure. No significant spinal canal stenosis or neural foramina. L1-L2: Minimal broad-based disc bulge. No significant canal stenosis or neural foraminal narrowing. L2-L3: Minimal broad-based disc bulge. No spinal canal stenosis. No right and minimal left neural foramina. L3-L4: Mild broad-based disc osteophyte complex with a small right subarticular disc extrusion with slight inferior migration. This narrows the right particular recess with mild crowding of traversing right L4 nerve roots. Otherwise no significant spinal canal stenosis. Mild right and minimal left neural foraminal narrowing. L4-L5: Minimal broad-based disc bulge. No significant spinal canal stenosis. Minimal bilateral neural foraminal narrowing. L5-S1: Mild broad-based is bulge. Mild left-sided facet hypertrophy. No significant spinal stenosis.Minimal left and no significant right neural foraminal narrowing. IMPRESSION: 1. Small right subarticular disc extrusion at L3-L4 with inferior migration and mild focal crowding of the traversing right L4 nerve roots. 2. No high-grade stenosis. No cauda equina compression. WSN: [id number] Ordering Physician: Reji Solano Dictated By: Teresa Calle MD Dictated Date/Time: 08/18/22 4:21 pm Reviewed By: Teresa Calle MD Signed By: Teresa Calle MD Signed Date/Time: 08/18/22 4:21 pm Transcribed By: LESLEE Transcribed Date/Time: 08/18/22 4:06 pm Exam Date Time Procedure Performing Provider Status 08/16/22 8:[address] Lumbar Spine W/O Contrast Stephan Loza; Rhonda (Verified) Notes:(CT Lumbar Spine W/O Contrast) Reason For Exam: pain;TraumaRESULT: CT Lumbar Spine W/O Contrast CT Lumbar Spine W/O Contrast Reason: Trauma; pain; Clinical Question(s): Cord Cauda Equina Compression; Order Comment: CLINICAL QUESTION: Cord/Cauda Equina Compression TECHNIQUE: Thin section axial images were acquired through the lumbar spine. Bone and soft tissue algorithms were reconstructed along with coronal and sagittal reformats. Weight-based protocol using automatic tube modulation was used to optimize exposure parameters. CTDIvol Body: 58.00 mGy, DLP Body: 3472 mGy*cm. COMPARISON: None FINDINGS: International Sales Representative View Findings, Lines and Tubes: None. Spine: No fractures or bone lesion. Lumbar scoliosis convex to the left. Disc bulging throughout the lumbar spine, mild at L1-L2 and L2-L3. Mild to moderate spinal canal narrowing including lateral recess and foraminal narrowing at L3-L4. Mild broad disc bulging at L4-L5. Soft tissues: Likely stable left renal cyst. IMPRESSION: No acute fracture or subluxation. Degenerative changes as described above. WSN: [id number] Ordering Physician: Janice Leblanc Dictated By: Herson Callaway MD Dictated Date/Time: 08/16/22 8:33 pm Reviewed By: Herson Callaway MD Signed By: Herson Callaway MD Signed Date/Time: 08/16/22 8:33 pm Transcribed By: LESLEE Transcribed Date/Time: 08/16/22 8:27 pm Exam Date Time Procedure Performing Provider Status 08/14/22 4:[address] Head/Brain W/O Contrast Opal Fleming; Rhonda (Verified) Notes:(CT Head/Brain W/O Contrast) Reason For Exam: CVA;Other:RESULT: CT Head/Brain W/O Contrast CT Head/Brain W/O Contrast INDICATION: Reason: Other:; CVA; Clinical Question(s): Other:; CVA; Order Comment: TECHNIQUE: Noncontrast head CT using axial technique and reconstructed in axial and coronal planes. Iterative reconstruction techniques are used to optimize dose and image quality. CTDIvol Head: 46.60 mGy, DLP Head: 772 mGy*cm. COMPARISON: Head CT dated May 31, 2022. FINDINGS: International Sales Representative view findings, lines and tubes: None. BRAIN AND EXTRA-AXIAL SPACES: No parenchymal hemorrhage, midline shift, or mass effect. Stephenson-white matter differentiation is well preserved. No acute infarct. Negative insular ribbon sign. Atherosclerotic vascular calcification of the carotid arteries but negative hyperdense vessel sign. Ventricles, sulci, and basilar cisterns are normal. No white matter lesions. No subarachnoid hemorrhage. No subdural or epidural collection. CALVARIUM, SKULL BASE, AND SOFT TISSUES: No fractures or suspicious bony lesions. Mild paranasal sinus mucosal thickening with scattered mucous retention cysts. Probable prior functional endoscopic sinus surgery at least on the left. Trace fluid in the right mastoid air cells and middle ear cavity. Left mastoid air cells and middle ear are clear. Visualized orbits and globes are intact. The extracranial soft tissues are unremarkable. IMPRESSION: No acute intracranial pathology. WSN: [id number] Ordering Physician: Reji Solano Dictated By: Ashwin Basurto MD Dictated Date/Time: 08/14/22 5:08 pm Reviewed By: Ashwin Basurto MD Signed By: Ashwin Basurto MD Signed Date/Time: 08/14/22 5:08 pm Transcribed By: LESLEE Transcribed Date/Time: 08/14/22 5:05 pm Vital Signs Most recent to oldest 1 2 3 [Reference Range]: Height 172.7 cm 172.7 cm 172.7 cm (08/19/22 6:35 AM) (08/18/22 8:47 PM) (08/18/22 4:2 6 PM) Weight 118.3 kg (08/15/22 9:42 AM) Oxygen Saturation [94-100 %] 99 % 97 % 96 % (08/19/22 6:35 AM) (08/18/22 8:47 PM) (08/18/22 4:3 1 PM) Pulse Rate [55-90 bpm] 74 bpm 66 bpm 76 bpm (08/19/22 9:01 AM) (08/19/22 6:35 AM) (08/18/22 8:4 7 PM) Body Mass Index [18.5-24.99 39.66 kg/m2 kg/m2] *>HHI* (08/15/22 9:42 AM) Blood Pressure [90-138/55-84 161/81 mm Hg 161/81 mm Hg 149 /88 mm Hg mm Hg] *H* *H* *H* (08/19/22 9:03 AM) (08/19/22 9:01 AM) (08/19/22 6:3 5 AM) Respiratory Rate [16-30 18 br/min 18 br/min 18 br/mi n br/min] (08/19/22 9:02 AM) (08/19/22 9:02 AM) (08/19/22 9:0 1 AM) Temperature [96.8-100.4 DegF] 97.8 DegF 97.9 DegF 97 .9 DegF (08/19/22 6:35 AM) (08/18/22 8:47 PM) (08/18/22 4:2 6 PM) Mode of Delivery (Oxygen) Room air Room air Room a ir (08/19/22 6:35 AM) (08/18/22 8:47 PM) (08/18/22 4:3 1 PM) Blood pressure sites Arm, right Arm, right Arm, right (08/19/22 6:35 AM) (08/18/22 8:47 PM) (08/18/22 4:2 6 PM) Temperature Route Oral Oral Oral (08/19/22 6:35 AM) (08/18/22 8:47 PM) (08/18/22 4:2 6 PM) Dry Weight 118.3 kg (08/15/22 9:42 AM) Social History Social History Type Response Smoking Status Never (less than 100 in life time) entered on: 05/13/22 Sex Admission evaluation note Jere AUSTIN, Amberly Oliveira: PERFORM, MODIFY, MODIFY, MODIFY, MODIFY, MODIFY Event Display: Admission Note Authored Date: [id number] Patient: ??ASMITA CAVANAUGH ? Age:??52 Years?Sex:??Female?:??1970?? Chief Complaint/Reason for Consultation Suicide ideation History of Present Illness The patient??is a??52 year old female with past medical history significant for chronic back pain, diabetes, hypertension, bipolar disorder,?? who??was brought to the??emergency department today by ambulance for suicidal ideation. ??When I asked the patient what brought her in, she stated she didn't want to talk about it ??.?? History is??obtained from ED note. ??Per ED note, the patient stated that she could not deal with her chronic medical issues anymore. ??States that she did not want to live. ??Patient??reportedly held a knife to her throat and stated she wanted to kill herself.?Her significant other called EMS and the patient was subsequently brought to the emergency department.?? The patient does endorse chronic back pain which got worse after a fall a couple of days ago, where she landed on her buttocks.?? She states her pain is unbearable.?? Her home pain regimen is no longer helping. ??She denies chest pain, shortness of breath.?? She does report??a mildly elevated temperature and difficulty with urination as well as nausea and vomiting.?? She states that she is able to amblate. ?? In the ED, the patient has a mildly elevated temperature of 99.6.?? Blood pressure is elevated to the 170s and vital signs are otherwise unremarkable. Laboratory data shows WBC 11.0?? Ca 10.7.?? CRP 2.8.??The case was discussed with neurology who suggested CT of the head and MRI of the lumbar spine. ??CT head shows no acute intracranial pathology.?? The patient is pending an MRI.?? She states that she cannot tolerate an MRI and needs to be put to sleep .?? The ED provider also spoke with DONAVON, who knows the patient well and??will see the patient when she is medically cleared.?The patient is admitted for pain control, MRI and suicide ideation. ? Review of Systems Constitutional:??No weight loss.?? Reports mild??fever.?? No??chills, weakness or fatigue. Allergy/Immune: Denies any??Eczema or hives Eyes:??No visual loss or yellow sclera ENT:??No hearing loss, sneezing, congestion, runny nose or sore throat. Respiratory:??No shortness of breath, cough or sputum production. Cardiovascular:??No chest pain palpitations or pedal edema. Gastrointestinal:??No anorexia.?? Reports nausea, vomiting.?? No diarrhea.?? Reports abdominal pain.?? No blood in stool. Genitourinary:??No burning micturition. No urinary frequency or incontinence.?? Reports difficulty with urination at times. Neurologic:?? Headache,.?? No dizziness, syncope, unilateral weakness, ataxia, numbness or tinglingin the extremities. Musculoskeletal:??Reports back pain. Hematologic/Lymphatics:??No bleeding or bruising. No painful lymph nodes. Skin:??No rash or itching. Endocrine:??No reports of sweating. No cold or heat intolerance. No polyuria or polydipsia. Psychiatric:??No depression or anxiety. Objective Vital Signs?? Temperature: 99.6 DegF (08/14/22 20:30:00) Temperature Route: Oral (08/14/22 20:30:00) Pulse Rate:??99 bpm??High (08/14/22 20:30:00) Respiratory Rate: 18 br/min (08/15/22 00:02:00) Systolic Blood Pressure:??171 mm Hg??High (08/14/22 20:30:00) Diastolic Blood Pressure: 74 mm Hg (08/14/22 20:30:00) Blood pressure sites: Arm, right (08/14/22 20:30:00) Mean Arterial Pressure: 106 mm Hg (08/14/22 18:26:00) Pulse Pressure: 97 mm Hg (08/14/22 18:26:00) Oxygen Saturation: 99 % (08/14/22 20:30:00) Mode of Delivery (Oxygen): Room air (08/14/22 18:26:00) Early Warning Score: 1 (08/15/22 00:03:22) ? Intake/Output? No Data Available ? Physical Exam Constitutional: Alert, in no distress. Mental Status: Oriented to person, place and time. Head: Normocephalic. Eyes: Pupils are equal, round and reactive to light. Extraocular muscles intact. Ear, Nose and Throat: Oropharynx clear, mucous membranes moist. Ears and nose without masses, lesions or deformities. Trachea midline. Neck: Supple, Full range of motion. Respiratory: Clear to auscultation. No wheezing, rales or rhonchi. Cardiovascular: S1 S2 regular. No murmurs, rubs or gallops. Gastrointestinal: Abdomen soft, non-tender, non-distended. Normal bowel sounds. No pulsatile mass. No hepatosplenomegaly. Genitourinary: No costovertebral angle tenderness. Neurologic: Cranial nerves II-XII grossly intact. No focal neurological deficits. Flexor plantar response. Moves all extremities spontaneously. Sensation intact bilaterally. Skin: No rashes or lesions. No petechiae or purpura.?? Musculoskeletal: No cyanosis or clubbing. No gross deformities. Normal range of motion. Heme/Lymphatics/Immun: Palpation of neck reveals no swelling or tenderness of neck nodes. Psychiatric: Normal mood and affect. Assessment/Plan Assessment:??The patient is a 52 year old female with past medical history significant for chronic back pain, diabetes, hypertension, bipolar disorder, who was brought to the emergency department todayby ambulance for suicidal ideation. When I asked the patient what brought her in, she stated she didn't want to talk about it . History is obtained from ED note. Per ED note, the patient stated thatshe could not deal with her chronic medical issues anymore. States that she did not want to live. Patient reportedly held a knife to her throat and stated she wanted to kill herself. Her significant other called EMS and the patient was subsequently brought to the emergency department. The patient does endorse chronic back pain which got worse after a fall a couple of days ago, where she landed on [employer]. She states her pain is unbearable. Her home pain regimen is no longer helping. She denies chest pain, shortness of breath. She does report a mildly elevated temperature and difficulty with urination as well as nausea and vomiting. She states that she is able to amblate. ?? In the ED, the patient has a mildly elevated temperature of 99.6. Blood pressure is elevated to [id number] and vital signs are otherwise unremarkable. Laboratory data shows WBC 11.0 Ca 10.7. CRP 2.8. The case was discussed with neurology who suggested CT of the head and MRI of the lumbar spine. CT headshows no acute intracranial pathology. The patient is pending an MRI. She states that she cannot tolerate an MRI and needs to be put to sleep . The ED provider also spoke with Scarlet, who knows the patient well and will see the patient when she is medically cleared. The patient is admitted for pain control, MRI and suicide ideation. ?? Back pain, paresthesias: Patient has known history of chronic back pain which has worsened over the last couple of days after sustaining a fall.?? Discussed with neurology who recommends CT head and MRI lumbar spine.?? CT head is nonacute.?? MRI lumbar spine is pending. -Continue home medication of oxycodone ER 40 mg every 12 hours. -Continue prn oxycodone IR 20 mg every 6 hours. -Continue Gabapentin 300 mg TID. -Awaiting MRI. -Neurology input appreciated. ?? Suicide ideation, history of bipolar disease, depression, anxiety: Per report patient threatened to cut herself with a knife. Significant other called EMS.?? Patient refuses to talk about incident. -Continue Constant chemical dependency professional, -Suicide precautions. -Continue home regimen of Bupropion and Lamotrigine. -N consult in the am. ?? Hypertension: BP has been elevated, possibly related to pain. -Continue amlodipine. ?? Diabetes: -Monitor Glucose POC before meals and HS.. -Patient takes Tresiba at home.?? Here Lantus has been ordered. -YANETH for meal coverage. ?? Diet: Cardiac Diabetic. ?? DVT prophylaxis: Pneumatic compression boots.?Heparin SC. ?? Code Status: Full code.? Discharge Planning:?? -D'c likely to inpatient psych unit. ? Histories Allergies Allergies ?(Active and Proposed Allergies Only) shellfish? (Severity: Unknown severity, Onset: Unknown) ?Comments: patient reports itchy/tingling throat Fish? (Severity: Unknown severity, Onset: Unknown) ?Comments: patient reports itchy/tingling throat Tylenol? (Severity: Unknown severity, Onset: Unknown) MetFORMIN (Eqv-Glumetza)? (Severity: Unknown severity, Onset: Unknown) acetaminophen? (Severity: Unknown severity, Onset: Unknown) ?Reactions: extremely itchy ? Past Medical History/Problem List Active Problems??(22) Allergic rhinitis Anxiety and depression Anxiety disorder Bipolar illness Cellulitis Chronic back pain CKD (chronic kidney disease) Depressive disorder FSGS (focal segmental glomerulosclerosis) GERD (gastroesophageal reflux disease) Hyperlipidemia Hypertension Insomnia Insulin dependent type 2 diabetes mellitus Iron deficiency Morbid obesity Obese class I Overactive bladder Tobacco dependence syndrome Urinary incontinence Vitamin D deficiency Weakness ? Past Surgical History Appendectomy ? Social History Alcohol Details:??Use: Never. Details:??Use: Never. Substance Abuse Details:??Use: Never. Details:??Use: Never. Tobacco Details:??Use: Never (less than 100 in lifetime). Details:??Current every day smoker Electronic Cigarette/Vaping Details:??Electronic Cigarette Use: Never. ? Psychosocial History ? Family History Other: Diabetes mellitus; Hypertension ? Medications Home Medications Albuterol (ProAir HFA 90 mcg/inh inhalation aerosol)?2?puff(s)?Inhalation?as needed?Wheezing/Shortness of Breath?every 4-6 hours Amlodipine (amLODIPine 10 mg oral tablet)?10?Milligram?1?tablet?By Mouth?Daily?for 30?Days?DOSE CHANGE TO 10MG DAILY Amlodipine (amLODIPine 10 mg oral tablet)?1?tab(s)?10?Milligram?By Mouth?Daily Aspirin (Aspirin Low Dose 81 mg oral delayed release tablet)?1?tab(s)?81?Milligram?By Mouth?Daily Aspirin (Aspirin Low Dose 81 mg oral delayed release tablet)?1?tab(s)?81?Milligram?By Mouth?Daily BuPROpion (buPROPion 450 mg/24 hours (XL) oral tablet, extended release)?1?tab(s)?450?Milligram?By Mouth?Every 24 hours?for 30?Days?DOSE CHANGE TO 450MG DAILY BuPROpion (buPROPion 150 mg/24 hours (XL) oral tablet, extended release)?1?tab(s)?150?Milligram?By Mouth?Every 24 hours Docusate-Senna (Docusate/Senna Tablet)?1?tab(s)?By Mouth?2 times a day?as needed?Constipation Ergocalciferol (Vitamin D2 50,000 intl units (1.25 mg) oral capsule)?1?capsule?50,000?International Unit?By Mouth?Every 7 days Finasteride (finasteride 5 mg oral tablet)?1?tab(s)?5?Milligram?By Mouth?Daily Finasteride (finasteride 5 mg oral tablet)?1?tab(s)?5?Milligram?By Mouth?Daily Fluticasone Nasal (fluticasone 50 mcg/inh nasal spray)?1?spray(s)?Nares, Both?2 times aday Gabapentin (gabapentin 300 mg oral capsule)?3 capsules?By Mouth?2 times a day?am & at bed Gabapentin (gabapentin 300 mg oral capsule)?300?Milligram?1?capsule?By Mouth?3 times a day Insulin Aspart (NovoLOG FlexPen 100 units/mL injectable solution)?4-12 UNITS?Subcutaneous Injection?3 times a day before meals?150-199= 4 [id number]= 6 [id number]= 8 [id number]= 10 -[id number]= 12 unitsCall MD <70 or >400 insulin degludec (Tresiba FlexTouch 100 units/mL subcutaneous solution)?30- 40 units?Subcutaneous Injection?Daily at bedtime?if sugar is below 250 = 30 unitsif sugar is above 250 = 40 units Lactobacillus GG ([employer] and Wellness oral capsule)?1?capsule?By Mouth?2 times a day Lamotrigine (lamotrigine 25 mg oral tablet)?25?Milligram?1?tablet?By Mouth?Daily at bedtime Lamotrigine (lamotrigine 25 mg oral tablet)?25?Milligram?1?tablet?By Mouth?2 times a day Loratadine (loratadine 10 mg oral tablet)?10?Milligram?1?tablet?By Mouth?Daily Lorazepam (Ativan 2 mg oral tablet)?1?tab(s)?2?Milligram?By Mouth?3 times a day Lorazepam (LORazepam 2 mg oral tablet)?1?tab(s)?2?Milligram?By Mouth?2 times a day?as needed?as needed for anxiety Lorazepam (LORazepam 2 mg oral tablet)?1?tab(s)?2?Milligram?By Mouth?3 times a day?as needed?for anxiety Metoclopramide (metoclopramide 10 mg oral tablet)?1?tab(s)?10?Milligram?By Mouth?2 times a day?as needed?Nausea Multivitamin With Minerals (Multivit Therapeutic/Minerals Tablet)?1?tab(s)?By Mouth?Daily Nystatin Topical (Nystop 862007 u/gm powder)?1?toshia?Topically?2 times a day Nystatin Topical (Nystop 425486 u/gm powder)?1?toshia?Topically?2 times a day Ondansetron (ondansetron 4 mg oral tablet, disintegrating)?1?tab(s)?4?Milligram?By Mouth?Every 8 hours?as needed?as needed for nausea/vomiting Oxybutynin (oxybutynin 10 mg/24 hr oral tablet, extended release)?1?tab(s)?10?Milligram?By Mouth?Daily Oxycodone (OxyCONTIN 40 mg oral tablet, extended release)?40?Milligram?1?tablet?By Mouth?Every 12 hours Oxycodone (oxyCODONE 20 mg oral tablet)?1?tab(s)?20?Milligram?By Mouth?Every 4 hours?as needed?as needed for pain Oxycodone (OxyCONTIN 40 mg oral tablet, extended release)?40?Milligram?1?tablet?By Mouth?Every 12 hours Oxycodone (oxyCODONE 20 mg oral tablet)?1?tab(s)?20?Milligram?By Mouth?Every 6 hours?as needed?as needed for pain Pantoprazole (pantoprazole 40 mg oral delayed release tablet)?1?tab(s)?40?Milligram?By Mouth?Daily Pantoprazole (pantoprazole 40 mg oral delayed release tablet)?1?tab(s)?40?Milligram?By Mouth?Daily Polyethylene Glycol 3350 (MiraLax oral powder for reconstitution)?17?gram?By Mouth?Daily?as needed?Constipation?dissolve in water before taking Polyethylene Glycol 3350 (polyethylene glycol 3350 oral powder for reconstitution)?17?gram?By Mouth?Daily?dissolve in water before taking Propranolol (propranolol 120 mg oral capsule, extended release)?1?capsule?120?Milligram?By Mouth?Daily Propranolol (propranolol 120 mg oral capsule, extended release)?1?capsule?120?Milligram?By Mouth?Daily Rosuvastatin (rosuvastatin 40 mg oral tablet)?1?tab(s)?40?Milligram?By Mouth?Daily Rosuvastatin (rosuvastatin 40 mg oral tablet)?1?tab(s)?40?Milligram?By Mouth?Daily Simethicone (simethicone 125 mg oral tablet, chewable)?1?tab(s)?125?Milligram?Chew?4 times a day?as needed?as needed Sodium Chloride Nasal (Deep Sea Nasal 0.65% nasal spray)?2?spray(s)?Nares, Both?Every 2hours?as needed?dry nares Sulfamethoxazole/Trimethoprim (sulfamethoxazole-trimethoprim 800 mg-160 mg oral tablet)?1?tab(s)?By Mouth?2 times a day Tamsulosin (tamsulosin 0.4 mg oral capsule)?0.4?Milligram?1?capsule?By Mouth?Daily Zolpidem (zolpidem 10 mg oral tablet)?1?tab(s)?10?Milligram?By Mouth?Daily at bedtime?as needed?as needed for insomnia Zolpidem (zolpidem 10 mg oral tablet)?1?tab(s)?10?Milligram?By Mouth?Daily at bedtime?as needed?as needed for insomnia ? Inpatient Medications Medications (29) Active SCHEDULED: (16) Amlodipine 10 mg Tablet (amLODIPine 10 mg oral tablet) ??10 mg, By Mouth, Daily Aspirin 81 mg EC Tablet (aspirin 81 mg oral delayed release tablet) ??81 mg, By Mouth, Daily BuPROpion (Wellbutrin XL Tablet) ??450 mg 1 tablet, By Mouth, Every 24 hours Finasteride 5 mg Tablet (finasteride 5 mg oral tablet) ??5 mg, By Mouth, Daily Fluticasone Propionate 50mcg/inh Nasal [place] (fluticasone 50 mcg/inh nasal spray) ??50 mcg 1 sprays, Nares, Both, 2 times a day Gabapentin 300 mg Capsule (gabapentin 300 mg oral capsule) ??300 mg, By Mouth, 3 times a day Insulin Glargine 100 units/mL Inj (Lantus Inj) ??24 units 0.24 mL, Subcutaneous Injection, Daily atbedtime Insulin Lispro 100 units/mL Inj (3mL) (Insulin LISPRO Sliding Scale) ??2-10 units, Subcutaneous Injection, 3 times a day before meals LamoTRIGINE 25 mg Tablet (lamotrigine 25 mg oral tablet) ??25 mg, By Mouth, Daily at bedtime Loratadine 10 mg Tablet (loratadine 10 mg oral tablet) ??10 mg, By Mouth, Daily Multivitamin Therapeutic / Minerals Tablet (Multivit Therapeutic/Minerals Tablet) ??1 tablet, By Mouth, Daily NaCl 0.9% Flush 3ml (NaCL 0.9% Flush) ??3 mL, IV Push, Every 8 hours Pantoprazole 40 mg EC Tablet (pantoprazole 40 mg oral delayed release tablet) ??40 mg, By Mouth, Daily Propranolol 60 mg CR Capsule (propranolol 60 mg oral capsule, extended release) ??120 mg, By Mouth,Daily Rosuvastatin 20 mg Tablet (rosuvastatin 40 mg oral tablet) ??40 mg, By Mouth, Daily Tamsulosin 0.4 mg Capsule (tamsulosin 0.4 mg oral capsule) ??0.4 mg, By Mouth, Daily CONTINUOUS: (0) PRN: (13) Acetaminophen 325 mg Tablet (Acetaminophen Tablet) ??650 mg, By Mouth, Every 4 hours Al hydroxide/Mg hydroxide/simethicone 200 mg-200 mg-20 mg/5 mL Susp UD (Maalox Plus Liquid) ??30 mL, By Mouth, Every 8 hours Albuterol 90mcg/Inhalation Inhaler HFA (Ventolin 90 mcg Inhaler) ??180 mcg 2 puffs, Inhalation, Every 4 hours Dextromethorphan-Guaifenesin 20 mg-200 mg/10 mL Liqu UD (Robitussin DM Liquid) ??10 mL, By Mouth, Every 4 hours Ibuprofen 400 mg Tablet (Ibuprofen Tablet) ??400 mg, By Mouth, Every 8 hours Lorazepam 1 mg Tablet (LORazepam Tablet) ??1 mg, By Mouth, Every 8 hours Melatonin 3 mg Tablet (Melatonin Tablet) ??9 mg, By Mouth, Daily at bedtime NaCl 0.9% Flush 3ml (NaCL 0.9% Flush) ??3 mL, IV Push, Every 8 hours OxyCODONE 5 mg IR Tablet (oxyCODONE 5 mg oral tablet) ??20 mg, By Mouth, Every 6 hours Polyethylene Glycol 17 Gm Powder (MiraLax Powder) ??17 Gm 1 pack/packet, By Mouth, Daily Senna 8.6 mg / Docusate 50 mg tablet (Docusate/Senna Tablet) ??1 tablet, By Mouth, 2 times a day Simethicone 80 mg Chewable Tablet (Simethicone Tablet) ??80 mg, Chew, 3 times a day Sodium Chloride 0.65% Nasal [place] (Salinex [place]) ??2 sprays, Nares, Both, Every 2 hours ? Results Recent Labs BLOOD COUNT & DIFF WBC 11.9 k/mm3 (High)?? 08/14/2022 14:50 RBC 4.34 m/mm3 ()?? 08/14/2022 14:50 Hgb 13.0 Gm/dL ()?? 08/14/2022 14:50 Hct 39.0 % ()?? 08/14/2022 14:50 MCV 89.9 femtoliters ()?? 08/14/2022 14:50 MCH 30.0 pg ()?? 08/14/2022 14:50 MCHC 33.3 g/dL ()?? 08/14/2022 14:50 Platelet Count 396 k/mm3 ()?? 08/14/2022 14:50 RDW-SD 44.7 femtoliters ()?? 08/14/2022 14:50 MPV 9.7 femtoliters ()?? 08/14/2022 14:50 Nucleated RBC (Automated) 0.0 #/100 WBC'S ()?? 08/14/2022 14:50 Abs. NRBC 0.0 k/mm3 ()?? 08/14/2022 14:50 Abs. Neut 9.9 k/mm3 (High)?? 08/14/2022 14:50 Abs. Lymph 1.4 k/mm3 ()?? 08/14/2022 14:50 Abs. [place] 0.5 k/mm3 ()?? 08/14/2022 14:50 Abs. Eo 0.1 k/mm3 ()?? 08/14/2022 14:50 Abs. Baso 0.0 k/mm3 ()?? 08/14/2022 14:50 Neut % 82.9 % (High)?? 08/14/2022 14:50 Lymph % 11.9 % (Low)?? 08/14/2022 14:50 [place] % 3.9 % (Low)?? 08/14/2022 14:50 Eos % 0.7 % ()?? 08/14/2022 14:50 Baso % 0.3 % ()?? 08/14/2022 14:50 Imm Gran 0.3 % ()?? 08/14/2022 14:50 Abs. Imm Gran 0.0 k/mm3 ()?? 08/14/2022 14:50 ?? CHEM GENERAL Sodium 132 mmol/L (Low)?? 08/14/2022 14:50 Potassium 4.7 mmol/L ()?? 08/14/2022 14:50 Chloride 95 mmol/L (Low)?? 08/14/2022 14:50 Bicarbonate Level 23 mmol/L ()?? 08/14/2022 14:50 Anion Gap 14 ()?? 08/14/2022 14:50 Glucose Level 192 mg/dL (High)?? 08/14/2022 14:50 Glucose, POC 168 mg/dL (High)?? 08/14/2022 20:08 BUN 10 mg/dL ()?? 08/14/2022 14:50 Creatinine-Blood 0.6 mg/dL ()?? 08/14/2022 14:50 Estimated GFR Creatinine 107 ML/MIN/1.73 M2 ()?? 08/14/2022 14:50 Calcium 10.7 mg/dL (High)?? 08/14/2022 14:50 C-Reactive Protein 2.8 mg/dL (High)?? 08/14/2022 14:50 ?? VIROLOGY COVID-19 by RT-PCR NEGATIVE ()?? 08/14/2022 15:13 ? Hospital Progress note Marco Mckeon RN: PERFORM, SIGN, VERIFY Event Display: Progress Note Hospital Authored Date: Patient: ASMITA CAVANAUGH Age: 52 years Sex: Female : 1970 Associated Diagnoses: None Author: Marco Mckeon RN Findings Problem Related to Alteration in Comfort 08/18/2022 16:01 EST Alteration in Comfort Related to Other: back pain Goals & Outcomes: Comfort Pt will report [...] BH Goals/Interventions, Comfort Yes Comfort, Problem Start 08/15/2022 14:44 Reviewed plan with, Comfort Patient Patient Progression, Comfort Pt progressing according to plan Comfort, Problem Ongoing Yes . Nursing Data Vital Signs : VITAL SIGNS SECTION 08/18/2022 16:31 EST Oxygen Saturation 96 % Mode of Delivery (Oxygen) Room air 08/18/2022 16:26 EST Temperature 97.9 DegF Temperature Route Oral Pulse Rate 71 bpm Respiratory Rate 18 br/min Systolic Blood Pressure 136 mm Hg Diastolic Blood Pressure 98 mm Hg H Blood pressure sites Arm, right Mean Arterial Pressure 111 mm Hg Pulse Pressure 38 mm Hg . Narrative/Incidental No acute events. Patient awake, alert & oriented, calm & cooperative. Pain poorly managed, receiving scheduled and PRN medications, gabapentin adjusted. MRI completed with generalized anesthesia, tolerated well. Eating and elimating without difficulty. Vitals stable on room air. No signs of distress. Resting comfortably at this time. Will continue to monitor. .Rusty Galan DO: PERFORM Event Display: Progress Note Hospital Authored Date: Patient: ??ASMITA CAVANAUGH ? Age:??52 Years?Sex:??Female?:??1970?? Subjective Patient seen and examined this morning.?? She is still complaining??of back pain and appears as though her underdosing from her home gabapentin dosing will increase back to this as this will likely provide the most benefit for her neuropathic pain.?? Otherwise we will continue on her home oxycodone dosing as??pain medications do not seem to be providing any noticeable change to her symptoms. ??She has pending an MRI today for further evaluation if this is negative we will have her evaluated by physical therapy??for initiation of discharge planning. ?? Review of Systems As per HPI Objective Vital Signs?? Temperature: 98.6 DegF (08/18/22 05:00:00) Temperature Route: Oral (08/18/22 05:00:00) Pulse Rate: 73 bpm (08/18/22 08:31:00) Respiratory Rate: 18 br/min (08/18/22 09:54:00) Systolic Blood Pressure: 138 mm Hg (08/18/22 08:31:00) Diastolic Blood Pressure: 70 mm Hg (08/18/22 08:31:00) Blood pressure sites: Arm, right (08/18/22 05:00:00) Oxygen Saturation: 98 % (08/18/22 05:00:00) Mode of Delivery (Oxygen): Room air (08/18/22 05:00:00) Early Warning Score: 0 (08/18/22 12:15:49) ? Intake/Output? 08/14 15:45 08/18 07:00 08/17 07:00 08/16 07:00 08/15 07:00 ?? 08/18 15:08 08/18 15:08 08/18 06:59 08/17 06:59 08/16 06:59 Intake ?360 ?0 ?360 ?0 ?0 Output ?0 ?0 ?0 ?0 ?0 Net Total ?360 ?0 ?360 ?0 ?0 ? Urine Count ?3 ?0 ?3 ?0 ?0 ? Physical Exam General Appearance: NAD. Eyes:??No scleral icterus. ENT: ??MM moist. Cardiovascular: RRR S1 and S2 heard with no M/R/G. Respiratory: ??Breath sounds clear to auscultation bilaterally. No wheezing. GI: Obese. Soft. Nontender and nondistended. Normal bowel sounds present throughout abdomen. MS: ??No edema or erythema in the lower extremities. Neuro: ??No slurred speech. Moving upper and lower extremities spontaneously. ??Patient with??subjective decreased sensation??in the right??leg??foot??as well as up into her right flank.?? Additionallyshe has decreased motor strength??in the foot however question compliance with examination??and she is able to??move it in the bed??with seemingly less dysfunction. Psych: Alert and oriented x3.?? Results Recent Labs CHEM GENERAL Glucose, POC 149 mg/dL (High)?? 08/18/2022 12:11 ? Assessment/Plan Asmita is a 52-year-old woman with a past medical history of chronic back pain, diabetes, bipolar disorder who presented to the emergency department via ambulance for suicidal ideation in the setting of back pain. ??Patient reportedly stated that she did not want to live anymore and held a knife to her throat stating that she wanted to kill herself because of her severe back pain at which point EMS was called and she was brought to the emergency department. ??Patient is endorsing chronic back pain however she states that she fell a couple of days ago and secondary to this the pain got dramaticallyworse and is now unbearable. ??Patient is now admitted to the hospital for further evaluation of herback pain. ?? Back pain Paresthesia Concern for right lower extremity weakness Patient has known history of chronic back pain which apparently has worsened after a fall about 5 days ago. ??She is now complaining of numbness through the right leg and up into the right flank as well as weakness in the right foot which is seen on examination however question patient's participationexamination given she is witnessed moving it spontaneously in the bed better than on examination. ??Additionally she admits to 2 episodes of urinary incontinence in the last week since the fall. ??Patient was discussed with neurology who recommended obtaining CT of the head as well as MRI of the lumbar spine. ??Patient states that she is unable to lie flat for an MRI without anesthesia and as such a CT of the lumbar spine was obtained while awaiting timing for MRI and this was without any acute fracture or subluxation or overt signs of canal stenosis. ??Patient additionally has been seen by the acute pain service for management of her pain and she was initially started on a Dilaudid [employer] however this did not make any noticeable change to her pain and as such was discontinued and she was transitioned back over to oral medications. ??Additionally it appears as though we are now close to her home gabapentin dosing and we will increase this back to her home dosing to see if this provides any better pain relief. ?Continue home oxycodone 40 mg every 12 hours ?Transition back to home p.o. oxycodone for breakthrough ?Gabapentin increased to home dose of 900 mg 3 times daily ?MRI with anesthesia to take place today ?Monitor for any change in neuro symptoms ?If any worsening of her neurologic symptoms we will reach out to neurosurgery for more urgent evaluation? Urinary tract infection Patient will have a UA that was grossly positive and has been started on ceftriaxone for treatment of urinary tract infection. ??This may also explain some of the episodes of difficulty with urination that she has been having. ??Urine culture demonstrates E. coli??with sensitivities pending. ?Continue ceftriaxone ?Follow-up urine culture ?? Suicidal ideation History of bipolar disorder Depression Anxiety Patient has a history of multiple previous suicide attempts??and??came in from home after reportedlytrying to cut herself with a knife due to significant pain. ??Patient since has not wanted to talk about the incident but was evaluated by psychiatry who stated that patient does not appear to be a threat to herself??at this time??as patient was denying any active or passive suicidal ideation during time of examination. Recommended discontinuation of the one-to-one sitter and that she did not meet requirements for inpatient psychiatric hospitalization. ?Lamotrigine increased 200 mg twice daily ?Continue zolpidem ?Monitor for any signs of worsening depression ?Continue bupropion ?? Hypertension: Continue amlodipine Diabetes: Continue Lantus and sliding scale insulin with POC glucoses. ??Hypoglycemia emergency measures ordered ?? Diet: Cardiac/diabetic DVT prophylaxis: Lovenox Code: Full Disposition: Pending MRI patient of back pain and PT evaluation once MRI complete?? Jonathan Mendoza RN: PERFORM, SIGN, VERIFY Event Display: Progress Note Hospital Authored Date: [id number] Patient: ASMITA CAVANAUGH Age: 52 years Sex: Female : 1970 Associated Diagnoses: None Author: Jonathan Mendoza RN Findings Evaluation Patient alert and oriented x4. Patient complained of pain truought the shift, patient stated [employer] pump did not work, d/c the [employer]IATE pump, propperyl documented. Patient back on oral pain medication and patient states it works better than the [employer] pump . Patient compliant with taking medications, patientwas not acusatory today. Bed low and locked, safety maintained during shift. . Discharge Information Rehabilitation Discharge : Rehab Discharge Index 08/17/2022 8:12 EST Comments on treatment indicated 52yo F c PMHx bipolar disorder and chronic back pain presents c SI, UTI. Awaiting MRI for increased LBP s/p fall. PT for bed mobility, transfers, ambulation. Rec home c PT services. Full chart review completed Yes Hospital course Patient has known history of chronic back pain which has worsened over the last couple of days after sustaining a fall. Discussed with neurology who recommends CT head and MRI lumbar spine. CT head is nonacute. MRI lumbar spine is pending. Other findings Per comment: Plan of care PT Gait training, Transfer training, Therapeutic exercise, Functional Activities, Balance training, Neuromuscular education, Other: Note Marco Mckeon RN: PERFORM Event Display: Discharge/Transfer Note Hospital Authored Date: [id number] Nursing Discharge Note Entered On: 08/19/2022 12:59 EST Performed On: 08/19/2022 12:57 EST by Marco Mckeon RN Nursing Discharge Note 2 Discharge Time : 08/19/2022 12:57 EST Discharge Level of Care at Discharge : Homehealth/VNA Discharge VNA/Hospice/Home Care(v001) : [facility] Patient Left Unit Via : Ambulance Patient Accompanied Off Unit with : Ambulance/Chair Van Personnel Handover Given to Transport Personnel : Yes DC Instructions Provided & Signed by Pt : Yes Patient Understands D/C Instructions : Yes Patient Instructions Discharge Signed : Yes Discharge Comments : Pt discharged home, instructions signed, agreeable with plan, able to teach back. Left with belongings. Vitals stable, A&Ox4, no signs of distress. Escorted via ambulance, report given to [facility] staff. Did Pt have Specialty Bed or Wound Vac : No Marco Mckeon RN - 08/19/2022 12:57 ESTDrRusty allan DO: PERFORM, MODIFY Event Display: Discharge/Transfer Note Hospital Authored Date: [id number] Patient: ??ASMITA CAVANAUGH ? Age:??52 Years?Sex:??Female?:??1970?? Patient Information Discharge Location: [facility] Primary Care Physician: Evelyn Bui MD Admit Date/Time: 08/14/22 15:45 Discharge Disposition Discharge Disposition: Home with Home Health _ Discharge Medications Albuterol (ProAir HFA 90 mcg/inh inhalation aerosol)?2?puff(s)?Inhalation?as needed?Wheezing/Shortness of Breath?every 4-6 hours Amlodipine (amLODIPine 10 mg oral tablet)?1?tab(s)?10?Milligram?By Mouth?Daily Aspirin (Aspirin Low Dose 81 mg oral delayed release tablet)?1?tab(s)?81?Milligram?ByMouth?Daily BuPROpion (buPROPion 450 mg/24 hours (XL) oral tablet, extended release)?1?tab(s)?450?Milligram?By Mouth?Every 24 hours?for 30?Days?DOSE CHANGE TO 450MG DAILY Docusate-Senna (Docusate/Senna Tablet)?1?tab(s)?By Mouth?2 times a day?as needed?Constipation Ergocalciferol (Vitamin D2 50,000 intl units (1.25 mg) oral capsule)?1?capsule?50,000?International Unit?By Mouth?Every 7 days Finasteride (finasteride 5 mg oral tablet)?1?tab(s)?5?Milligram?By Mouth?Daily Fluticasone Nasal (fluticasone 50 mcg/inh nasal spray)?1?spray(s)?Nares, Both?2 times a day Gabapentin (gabapentin 300 mg oral capsule)?900?Milligram?3?capsule?By Mouth?3 times a day Insulin Aspart (NovoLOG FlexPen 100 units/mL injectable solution)?4-12 UNITS?Subcutaneous Injection?3 times a day before meals?150-199= 4 [id number]= 6 -609= 8 [id number]= 10 [id number]= 12 unitsCall MD <70 or >400 insulin degludec (Tresiba FlexTouch 100 units/mL subcutaneous solution)?30-40 units?Subcutaneous Injection?Daily at bedtime?if sugar is below 250 = 30 unitsif sugar is above 250 = 40 units Lactobacillus GG ([facility] oral capsule)?1?capsule?By Mouth?2 times a day Lamotrigine (lamotrigine 100 mg oral tablet)?100?Milligram?1?tablet?By Mouth?Every12 hours Loratadine (loratadine 10 mg oral tablet)?10?Milligram?1?tablet?By Mouth?Daily Lorazepam (LORazepam 2 mg oral tablet)?1?tab(s)?2?Milligram?By Mouth?3 times a day?as needed?for anxiety Metoclopramide (metoclopramide 10 mg oral tablet)?1?tab(s)?10?Milligram?By Mouth?2times a day?as needed?Nausea Multivitamin With Minerals (Multivit Therapeutic/Minerals Tablet)?1?tab(s)?By Mouth?Daily Nystatin Topical (Nystop 873277 u/gm powder)?1?toshia?Topically?2 times a day Ondansetron (ondansetron 4 mg oral tablet, disintegrating)?1?tab(s)?4?Milligram?By Mouth?Every 8 hours?as needed?as needed for nausea/vomiting Oxybutynin (oxybutynin 10 mg/24 hr oral tablet, extended release)?1?tab(s)?10?Milligram?By Mouth?Daily Oxycodone (OxyCONTIN 40 mg oral tablet, extended release)?40?Milligram?1?tablet?By Mouth?Every 12 hours Oxycodone (oxyCODONE 20 mg oral tablet)?1?tab(s)?20?Milligram?By Mouth?Every 6 hours?as needed?as needed for pain Pantoprazole (pantoprazole 40 mg oral delayed release tablet)?1?tab(s)?40?Milligram?By Mouth?Daily Polyethylene Glycol 3350 (MiraLax oral powder for reconstitution)?17?gram?By Mouth?Daily?as needed?Constipation?dissolve in water before taking Propranolol (propranolol 120 mg oral capsule, extended release)?1?capsule?120?Milligram?By Mouth?Daily Rosuvastatin (rosuvastatin 40 mg oral tablet)?1?tab(s)?40?Milligram?By Mouth?Daily Simethicone (simethicone 125 mg oral tablet, chewable)?1?tab(s)?125?Milligram?Chew?4 times a day?as needed?as needed Sodium Chloride Nasal ([place] Nasal 0.65% nasal spray)?2?spray(s)?Nares, Both?Every 2 hours?as needed?dry nares Sulfamethoxazole/Trimethoprim (sulfamethoxazole-trimethoprim 800 mg-160 mg oral tablet)?1?tab(s)?By Mouth?2 times a day Tamsulosin (tamsulosin 0.4 mg oral capsule)?0.4?Milligram?1?capsule?By Mouth?Daily Zolpidem (zolpidem 10 mg oral tablet)?1?tab(s)?10?Milligram?By Mouth?Daily at bedtime?as needed?as needed for insomnia ? Medications Started None Medications Discontinued None Doses Changed None Allergies Allergies ?(Active and Proposed Allergies Only) shellfish? (Severity: Unknown severity, Onset: Unknown) ?Comments: patient reports itchy/tingling throat Fish? (Severity: Unknown severity, Onset: Unknown) ?Comments: patient reports itchy/tingling throat Tylenol? (Severity: Unknown severity, Onset: Unknown) MetFORMIN (Eqv-Glumetza)? (Severity: Unknown severity, Onset: Unknown) acetaminophen? (Severity: Unknown severity, Onset: Unknown) ?Reactions: extremely itchy ? Hospital Course Asmita is a 52-year-old woman with a past medical history of chronic back pain, diabetes, bipolar disorder who presented to the emergency department via ambulance for suicidal ideation in the setting of back pain. ??Patient reportedly stated that she did not want to live anymore and held a knife to her throat stating that she wanted to kill herself because of her severe back pain at which point EMS was called and she was brought to the emergency department. ??Patient is endorsing chronic back pain however she states that she fell a couple of days ago and secondary to this the pain got dramaticallyworse and is now unbearable and for this reason patient was admitted to the hospital.?Patient wasevaluated by the psychiatry team??who during the time of their evaluation patient was denying any active or passive suicidal ideation??and they deemed her not to be a threat to herself and that she was? ?cleared at this time and not requiring inpatient psychiatric hospitalization. ??Recommendations were made for adjustment and her??medications??with increase of her lamotrigine??as per previous recommendations.?? Patient continued to have pain and the acute pain service was consulted and did trial david a [employer] pump with Dilaudid however this did not??lead to any change in her quality of pain and as such this was discontinued. ??Her gabapentin dose was increased back to her home gabapentin dosing of 900 milligrams 3 times a day??and this did lead to some improvement in a neuropathic nature of her pain.?? Given her story of new weakness in her right leg??as well as reported episodes of urinary incontinence that was enough concern to repeat patient's MRI??even though 1 was just completed at the beginning of the month.?? Repeat MRI??without signs of??cauda equina syndrome??and only mild crowding of the L4 nerve root??without??any significant findings to explain her presentation and level of pain.??After MRI was completed given that it did not yield any answer??patient??felt as though she was??ready to leave the hospital??on her current pain regiment??and??would follow-up??outpatient??with her primary care physician.?? At time of discharge patient was hemodynamic stable and ready for discharge from the hospital.?? At time of discharge patient is denying any??suicidal ideation. ?? Back pain Paresthesia Concern for right lower extremity weakness Patient has known history of chronic back pain which apparently has worsened after a fall about 5 days ago. ??She is now complaining of numbness through the right leg and up into the right flank as well as weakness in the right foot which is seen on examination however question patient's participationexamination given she is witnessed moving it spontaneously in the bed better than on examination. ??Additionally she admits to 2 episodes of urinary incontinence in the last week since the fall. ??Patient was discussed with neurology who recommended obtaining CT of the head as well as MRI of the lumbar spine. ??Patient states that she is unable to lie flat for an MRI without anesthesia and as such a CT of the lumbar spine was obtained while awaiting timing for MRI and this was without any acute fracture or subluxation or overt signs of canal stenosis. ??Patient additionally has been seen by the acute pain service for management of her pain and she was initially started on a Dilaudid [employer] however this did not make any noticeable change to her pain and as such was discontinued and she was transitioned back over to oral medications. ??MRI ultimately completed on 08/18 with findings of small right subarticular disc extrusion at L3-L4 with inferior migration and mild focal crowding of the traversing right L4 nerve root but no signs of high-grade stenosis or cauda equina compression. ?Continue home oxycodone 40 mg every 12 hours ?Continue home??short acting??oxycodone prn for breakthrough ?Gabapentin 900 mg 3 times daily ?Consider initiation of Duloxetine to further help with seeming neuropathic nature of reny ?? Urinary tract infection Patient will have a UA that was grossly positive and has been started on ceftriaxone for treatment of urinary tract infection. ??Cultures found to be pansensitive E. coli and patient has now completed a 3-day course of ceftriaxone which??is sufficient for treatment and patient has had improvement in her symptoms. ??Additionally this may also explain some of the episodes of difficulty with urination that she has been having.? Suicidal ideation History of bipolar disorder Depression Anxiety Patient has a history of multiple previous suicide attempts??and??came in from home after reportedlytrying to cut herself with a knife due to significant pain. ??Patient since has not wanted to talk about the incident but was evaluated by psychiatry who stated that patient does not appear to be a threat to herself??at this time??as patient was denying any active or passive suicidal ideation during time of examination. Recommended discontinuation of the one-to-one sitter and that she did not meet requirements for inpatient psychiatric hospitalization. ?Lamotrigine increased to 100 mg twice daily ?Continue zolpidem ?Continue bupropion ??? Close outpatient follow-up for monitoring of any further??suicidal ideation ?? Hypertension: Continue amlodipine Diabetes: Continue home insulin regiment ?? Objective Vital Signs?? Temperature: 97.8 DegF (08/19/22 06:35:00) Temperature Route: Oral (08/19/22 06:35:00) Normothermic Measures: Warming blanket (08/18/22 15:30:00) Pulse Rate: 74 bpm (08/19/22 09:01:00) Heart Rate Monitored: 65 bpm (08/18/22 16:00:00) Respiratory Rate: 18 br/min (08/19/22 09:02:00) Respiratory Rate: 18 br/min (08/19/22 09:02:00) Systolic Blood Pressure:??161 mm Hg??High (08/19/22 09:03:00) Diastolic Blood Pressure: 81 mm Hg (08/19/22 09:03:00) Blood pressure sites: Arm, right (08/19/22 06:35:00) Mean Arterial Pressure: 108 mm Hg (08/19/22 06:35:00) Pulse Pressure: 61 mm Hg (08/19/22 06:35:00) Oxygen Saturation: 99 % (08/19/22 06:35:00) Mode of Delivery (Oxygen): Room air (08/19/22 06:35:00) Early Warning Score: 3 (08/19/22 09:08:42) ? . Physical Exam General Appearance: NAD. Eyes:??No scleral icterus. ENT: ??MM moist. Cardiovascular: RRR S1 and S2 heard with no M/R/G. Respiratory: ??Breath sounds clear to auscultation bilaterally. No wheezing. GI: Obese. Soft. Nontender and nondistended. Normal bowel sounds present throughout abdomen. MS: ??No edema or erythema in the lower extremities. Neuro: ??No slurred speech. Moving upper and lower extremities spontaneously. ??Patient with??subjective decreased sensation??in the right??leg??foot??as well as up into her right flank.?? Additionallyshe has decreased motor strength??in the foot however question compliance with examination??and she is able to??move it in the bed??with seemingly less dysfunction. Psych: Alert and oriented x3.?? Consultants Psychiatry: Dr. Alanis Follow-Up Appointments Added Follow Up ?Time Frame ?Comments Evelyn Bui MD?3-5 day: call to discuss follow up visit Home Health Face to Face *Denotes mandatory persaud ?? *I certify that this patient is under my care and that I or an allowed non- physician working with had a face to face encounter with the patient on this date:??08/19/2022 10:47 ?? *The encounter with the patient was in whole, or in part, for the following medical condition, whichis the primary diagnosis(es) for home health care:??Back pain Urinary tract infection Diabetes Bipolar disorder Depression Anxiety Hypertension Suicidal ideation ? *Select the indications for the discipline/s that are being arranged for this patient. Nursing (select all that apply): [_] None [_] Medication management (reconciliation, teaching)?? [_] Chronic disease management?? [_] Wound care and treatment?? [_] Home safety evaluation [_] Administer SQ/IM/IV medications?? [_] Cath care?? [_] Drain care?? [_] Trach or GT care?? Other _ Occupation Therapy (select all that apply): [_] None [_] ADL Management [_] Fall prevention training [_] Energy conservation [_] Cognitive training Other _ Physical Therapy (select all that apply): [_] None [X] Functional mobility training [X] Home exercise program to strengthen [_] Increase ROM?? [X] Falls prevention training [_] Home maintenance program for chronic disease Other _ Speech Therapy (select all that apply): [_] None [_] Swallow evaluation and training [_] Speech and language training [_] Cognitive training to process, organize, and/or recall information Other _ ? *Homebound due to (select all that apply): [_] Inability to leave home without assistance/supervision [_] Inability to ambulate without assistance [_] Pain [X] Decreased strength and endurance [_] Unsteady gait [_] Severe SOB and fatigue [_] Impaired transfers [_] Inability to negotiate stairs [_] Limited weight bearing [_] Mental status change? *Physician Signature: _Rusty Galan DO ?? *By signing this, I certify that I have personally evaluated the patient and agree with the findingsand recommendations as documented above. ? Results Discharge Labs BLOOD COUNT & DIFF WBC 13.2 k/mm3 (High)?? 08/19/2022 01:33 RBC 4.21 m/mm3 ()?? 08/19/2022 01:33 Hgb 12.4 Gm/dL ()?? 08/19/2022 01:33 Hct 37.5 % ()?? 08/19/2022 01:33 MCV 89.1 femtoliters ()?? 08/19/2022 01:33 MCH 29.5 pg ()?? 08/19/2022 01:33 MCHC 33.1 g/dL ()?? 08/19/2022 01:33 Platelet Count 316 k/mm3 ()?? 08/19/2022 01:33 RDW-SD 44.1 femtoliters ()?? 08/19/2022 01:33 MPV 10.8 femtoliters ()?? 08/19/2022 01:33 Nucleated RBC (Automated) 0.0 #/100 WBC'S ()?? 08/19/2022 01:33 Abs. NRBC 0.0 k/mm3 ()?? 08/19/2022 01:33 Abs. Neut 9.9 k/mm3 (High)?? 08/14/2022 14:50 Abs. Lymph 1.4 k/mm3 ()?? 08/14/2022 14:50 Abs. [place] 0.5 k/mm3 ()?? 08/14/2022 14:50 Abs. Eo 0.1 k/mm3 ()?? 08/14/2022 14:50 Abs. Baso 0.0 k/mm3 ()?? 08/14/2022 14:50 Neut % 82.9 % (High)?? 08/14/2022 14:50 Lymph % 11.9 % (Low)?? 08/14/2022 14:50 [place] % 3.9 % (Low)?? 08/14/2022 14:50 Eos % 0.7 % ()?? 08/14/2022 14:50 Baso % 0.3 % ()?? 08/14/2022 14:50 Imm Gran 0.3 % ()?? 08/14/2022 14:50 Abs. Imm Gran 0.0 k/mm3 ()?? 08/14/2022 14:50 ?? CHEM GENERAL Sodium 133 mmol/L ()?? 08/19/2022 01:33 Potassium 5.2 mmol/L ()?? 08/19/2022 01:33 Chloride 97 mmol/L (Low)?? 08/19/2022 01:33 Bicarbonate Level 22 mmol/L ()?? 08/19/2022 01:33 Anion Gap 14 ()?? 08/19/2022 01:33 Glucose Level 192 mg/dL (High)?? 08/14/2022 14:50 Glucose, POC 204 mg/dL (High)?? 08/19/2022 08:00 BUN 23 mg/dL (High)?? 08/19/2022 01:33 Creatinine-Blood 0.8 mg/dL ()?? 08/19/2022 01:33 Estimated GFR Creatinine 87 ML/MIN/1.73 M2 ()?? 08/19/2022 01:33 Calcium 10.7 mg/dL (High)?? 08/14/2022 14:50 C-Reactive Protein 2.8 mg/dL (High)?? 08/14/2022 14:50 ?? UA/URINALYSIS Appear/Color, Urine YELLOW ()?? 08/15/2022 18:46 Specific [place], Urine 1.023 ()?? 08/15/2022 18:46 pH, Urine 6.5 ()?? 08/15/2022 18:46 Albumin, Urine 1+ (Abnormal)?? 08/15/2022 18:46 Glucose, Urine NEGATIVE ()?? 08/15/2022 18:46 Ketones, Urine NEGATIVE ()?? 08/15/2022 18:46 Bilirubin, Urine NEGATIVE ()?? 08/15/2022 18:46 Hemoglobin, Urine TRACE (Abnormal)?? 08/15/2022 18:46 Nitrite, Urine POSITIVE (Abnormal)?? 08/15/2022 18:46 Leukocyte, Urine 3+ (Abnormal)?? 08/15/2022 18:46 Urobilinogen NORMAL mg/dL ()?? 08/15/2022 18:46 WBC's, Urine >182 /HPF (High)?? 08/15/2022 18:46 RBC's, Urine 6 /HPF (High)?? 08/15/2022 18:46 Bacteria MODERATE HPF (Abnormal)?? 08/15/2022 18:46 Squamous Epith <1 /HPF ()?? 08/15/2022 18:46 Mucus SLIGHT /LPF ()?? 08/15/2022 18:46 Hold Urine Culture Testing available 48 hours from time of collection. ()?? 08/15/2022 18:46 ? VIROLOGY COVID-19 by RT-PCR NEGATIVE ()?? 08/14/2022 15:13 COVID-19 PCR Specimen Source NASAL ()?? 08/18/2022 10:28 COVID-19 PCR Result NEGATIVE ()?? 08/18/2022 10:28 ? Microbiology ?? COVID-19 (Novel Coronavirus), Rapid PCR?? Completed?? Source: Nasal Body Site: Nose Collected Dt/Tm: 08/14/2022 15:13 Last Updated Dt/Tm: 08/14/2022 18:14 COVID-19 (2019 Novel Coronavirus) PCR?? Completed?? Source: Nasal Body Site: Nose Collected Dt/Tm: 08/15/2022 05:01 Last Updated Dt/Tm: 08/15/2022 19:35 COVID-19 (2019 Novel Coronavirus) PCR?? Completed?? Source: Nasal Body Site: Nose Collected Dt/Tm: 08/18/2022 10:43 Last Updated Dt/Tm: 08/19/2022 05:46 ? 38??minutes spent on discharge Erika Johns RN: PERFORM, SIGN, VERIFY Event Display: Case Management Discharge Plan Authored Date: Patient: ASMITA CAVANAUGH Age: 52 years Sex: Female : 1970 Associated Diagnoses: None Author: Erika Johns RN Discharge Plan Case Management Discharge Plan : Case Management Discharge Plan Data 08/19/2022 10:41 EST Discharge Level of Care at Discharge Homehealth/VNA Discharge VNA/Hospice/Home Care [facility] (Modified) Discharge Transportation Arranged [facility] [address] [facility] [phone] Discharge Arranged Transport Date/Time 08/19/2022 12:30 Mode of Transportation Arranged Ambulance Name of Agency #1 [facility] (Modified) Service Categories #1 [facility] Service Comments #1 The nurses will call to arrange a time for the first visit. Name of Agency #2 [facility] Service Categories #2 Physical Therapy Service Comments #2 [facility] will continue to provide home physical therapy and will call to arrange a time to resume services.Erika Johns RN: PERFORM, SIGN, VERIFY Event Display: Case Management Discharge Plan Authored Date: [id number] Patient: ASMITA CAVANAUGH Age: 52 years Sex: Female : 1970 Associated Diagnoses: None Author: Erika Johns RN Discharge Plan Case Management Discharge Plan : Case Management Discharge Plan Data 08/19/2022 10:41 EST Discharge Level of Care at Discharge Homehealth/VNA Discharge VNA/Hospice/Home Care [facility] Discharge Transportation Arranged [facility] [address] [facility] [phone] Discharge Arranged Transport Date/Time 08/19/2022 12:30 Mode of Transportation Arranged Ambulance Name of Agency #1 [facility] Service Categories #1 [facility] Service Comments #1 The nurses will call to arrange a time for the first visit. Name of Agency #2 [facility] Service Categories #2 Physical Therapy Service Comments #2 [facility] will continue to provide home physical therapy and will call to arrange a time to resume services.Marco Mckeon RN: PERFORM, MODIFY Event Display: Patient Education/Instruction Authored Date: Inpatient Adult Discharge Instructions [address] [address] Name: ASMITA CAVANAUGH : 1970 Visit: 08/14/2022 15:45:00 Current Date: 08/19/2022 11:11 Account: [id number] Inpatient Adult Discharge Instructions We would like [...] and their families. Surveys are administered by [employer] ?? If further treatment with your primary care physician or another doctor is recommended, it is important for you to keep the appointment. Call your primary care physician or return to the Emergency Department immediately if your condition worsens, fails to improve, or new symptoms develop. If you need to find a doctor, you can call [facility] for a referral at [phone] or toll free at [phone] or log in to [email or web address].. ?? You can view and manage your care through the patient portal or by using a health care toshia of your choosing. [employer] is a website that allows you to securely view your medical information including your hospital discharge summary, office visit summaries, medications and follow-up visits. You can also request appointments, renew medications, and request access to your medical information using a health care toshia of your choosing, or just ask a question. You can enroll at [email or web address] or register during your next office visit. You have been discharged from [facility], Patient Care Unit: S64. If you have any questions regarding these instructions after you leave, please call us and we will be happy to assist you. [facility] Your Care Team Attending Physician Rusty Galan DO Consulting Providers Tash Webb MD, MD, Sonia Discharging Providers Rusty Galan DO Reason for Admission Suicide ideation Your Diagnosis Inadequate pain control Tests Performed Below is a partial list of the tests performed during your hospitalization. You may have had other tests and procedures not included in this list. Please discuss all test results with your provider. Basic Metabolic Panel BUN CBC CBC w/ Differential COVID-19 (2019 Novel Coronavirus) PCR COVID-19 (Novel Coronavirus), Rapid PCR Creatinine CRP Electrolytes GLUCOSE POC Urinalysis w/hold for Urine Culture CT Head/Brain W/O Contrast CT Lumbar Spine W/O Contrast MRI Lumbar Spine W/O Contrast Primary Care Provider Evelyn Bui MD Advance Directive Health Care Proxy on File Yes - Health Care Proxy No qualifying data available. Discharge Vitals Temperature: 97.8 DegF Height: 172.7 cm Pulse Rate: 74 bpm Weight: 118.3 kg Respiratory Rate: 18 br/min Body Mass Index:??39.66 kg/m2??Critical Respiratory Rate: 18 br/min Body surface area: 2.38 Systolic Blood Pressure:??161 mm Hg??High ?? Diastolic Blood Pressure: 81 mm Hg ?? Oxygen Saturation: 99 % ?? Studies Pending All tests and labs ordered during this hospital stay have been completed unless listed below. Pleasediscuss all pending results with your provider listed above in these instructions. ?? Add On Lab Order What to do next Instructions From Your Doctor Discharge Orders You Need to Schedule the Following Appointments Follow Up with??Hao MELCHOR, Evelyn Ackerman When??Within 3-5 day: call to discuss follow up visit Where: ?? Discharge Medications ASMITA CAVANAUGH :1970 Visit Date:08/14/2022 Medications: Please continue your medications until treatment is completed or stopped by your provider. Medications not listed below should be discontinued. Discuss any questions related to medications with your provider. What How Much When Instructions Next Dose Changed Amlodipine (amLODIPine 10 mg oral tablet) 1 tab(s) Oral Daily Tomorrow 08/20 ?? Given this morning 08/19 Changed Aspirin (Aspirin Low Dose 81 mg oral delayed release tablet) 1 tab(s) Oral Daily Tomorrow 08/20 ?? Given this morning 08/19 Changed BuPROpion (buPROPion 450 mg/ 24 hours (XL) oral tablet, extended release) 1 tab(s) Oral Every 24 hours Duration: 30 Days DOSE CHANGE TO 450MG DAILY ?? Tomorrow 08/20 ?? Given this morning 08/19 Changed Finasteride (finasteride 5 mg oral tablet) 1 tab(s) Oral Daily Tomorrow 08/20 ?? Given this morning 08/19 Changed Gabapentin (gabapentin 300 mg oral capsule) 3 capsule Oral 3 times a day Two more doses today 08/19 ?? Given once this morning Changed Insulin Aspart (NovoLOG FlexPen 100 units/ mL injectable solution) 4-12 UNITS Subcutaneous Injection 3 times a day before meals 150-199= 4 units 200-249= 6 units 250-299= 8 units 300-349= 10 units 350-399= 12 units Call MD <70 or >400 ?? Before next meal today 08/19 Changed Lamotrigine (lamotrigine 100 mg oral tablet) 1 tab(s) Oral Every 12 hours Pickup at [facility] Today 08/19 afternoon ?? Last given 08/19 at 1:30am Changed Lorazepam (LORazepam 2 mg oral tablet) 1 tab(s) Oral 3 times a day as needed for for anxiety As needed ?? Given once this morning 08/19 Changed Nystatin Topical (Nystop 915850 u/ gm powder) 1 toshia Topically Twice a day Today 08/19 ?? not given Changed Oxycodone (oxyCODONE 20 mg oral tablet) 1 tab(s) Oral Every 6 hours as needed for as needed for pain As needed, after 1pm ?? Last given today 08/19 at 9am Changed Oxycodone (OxyCONTIN 40 mg oral tablet, extended release) 1 tab(s) Oral Every 12 hours Tonight 08/19 at??9pm ?? Last given this morning 08/19 at 9am Changed Pantoprazole (pantoprazole 40 mg oral delayed release tablet) 1 tab(s) Oral Daily Tomorrow 08/20 ?? Given this morning 08/19 Changed Polyethylene Glycol 3350 (MiraLax oral powder for reconstitution) 17 gram Oral Daily as needed for Constipation dissolve in water before taking ?? As needed ?? Not given Changed Propranolol (propranolol 120 mg oral capsule, extended release) 1 capsule Oral Daily Tomorrow 08/20 ?? Given this morning 08/19 Changed Rosuvastatin (rosuvastatin 40 mg oral tablet) 1 tab(s) Oral Daily Tomorrow 08/20 ?? Given this morning 08/19 Changed Zolpidem (zolpidem 10 mg oral tablet) 1 tab(s) Oral Daily at Bedtime as needed for as needed for insomnia As needed at bedtime Changed insulin degludec (Tresiba FlexTouch 100 units/ mL subcutaneous solution) 30-40 units Subcutaneous Injection Daily at Bedtime if sugar is below 250 = 30 units if sugar is above 250 = 40 units ?? Tonight 08/19 at bedtime Unchanged Albuterol (ProAir HFA 90 mcg/ inh inhalation aerosol) 2 puff(s) Inhalation As needed for Wheezing/Shortness of Breath every 4-6 hours ?? As needed ?? Not given Unchanged Docusate-Senna (Docusate/ Senna Tablet) 1 tab(s) Oral Twice a day as needed for Constipation As needed ?? Not given Unchanged Ergocalciferol (Vitamin D2 50,000 intl units (1.25 mg) oral capsule) 1 capsule Oral Every 7 days Resume regular scheduled Unchanged Fluticasone Nasal (fluticasone 50 mcg/ inh nasal spray) 1 spray(s) Nares, Both Twice a day As needed ?? Not given Unchanged Lactobacillus GG (QudiniCrowdrally Health and Dhingana oral capsule) 1 capsule Oral Twice a day Twice today 08/19 ?? Not given Unchanged Loratadine (loratadine 10 mg oral tablet) 1 tab(s) Oral Daily Tomorrow 08/20 ?? Given this morning 08/19 Unchanged Metoclopramide (metoclopramide 10 mg oral tablet) 1 tab(s) Oral Twice a day as needed for Nausea As needed ?? Not given Unchanged Multivitamin With Minerals (Multivit Therapeutic/ Minerals Tablet) 1 tab(s) Oral Daily Tomorrow 08/20 ?? Given this morning 08/19 Unchanged Ondansetron (ondansetron 4 mg oral tablet, disintegrating) 1 tab(s) Oral Every 8 hours as needed for as needed for nausea/vomiting As needed ?? Not given Unchanged Oxybutynin (oxybutynin 10 mg/ 24 hr oral tablet, extended release) 1 tab(s) Oral Daily Tomorrow 08/20 ?? Given this morning 08/19 Unchanged Simethicone (simethicone 125 mg oral tablet, chewable) 1 tab(s) Chew 4 times a day as needed for as needed As needed ?? Not given Unchanged Sodium Chloride Nasal (Deep Sea Nasal 0.65% nasal spray) 2 spray(s) Nares, Both Every 2 hours as needed for dry nares As needed ?? Not given Unchanged Sulfamethoxazole/ Trimethoprim (sulfamethoxazole-trimethoprim 800 mg- 160 mg oral tablet) 1 tab(s) Oral Twice a day Twice today 08/19 ?? Not given Unchanged Tamsulosin (tamsulosin 0.4 mg oral capsule) 1 capsule Oral Daily Tomorrow 08/20 ?? Given this morning 08/19 Pharmacy Information [facility]: [address] [place] [phone] Test Results Below is a partial list of the most recent Laboratory test results done prior to this discharge. You may have had other tests and procedures not included in this list. Please discuss all test results with your provider. Basic Metabolic Panel (08/14/2022) ???Sodium - 132 mmol/L???Potassium - 4.7 mmol/L???Chloride - 95 mmol/L???Bicarbonate Level - 23 mmol/L???Anion Gap - 14???Glucose Level - 192 mg/dL???BUN - 10 mg/dL???Creatinine-Blood - 0.6 mg/dL???Estimated GFR Creatinine - 107 ML/MIN/1.73 M2???Calcium - 10.7 mg/dL BUN (08/19/2022) ???BUN - 23 mg/dL CBC (08/19/2022) ???WBC - 13.2 k/mm3???RBC - 4.21 m/mm3???Hgb - 12.4 Gm/dL???Hct - 37.5 %???MCV - 89.1 femtoliters???MCH - 29.5 pg???MCHC - 33.1 g/dL???Platelet Count - 316 k/mm3???RDW-SD - 44.1 femtoliters???MPV - 10.8 femtoliters???Nucleated RBC (Automated) - 0.0 #/100 WBC'S???Abs. NRBC - 0.0 k/mm3 CBC w/ Differential (08/14/2022) ???WBC - 11.9 k/mm3???RBC - 4.34 m/mm3???Hgb - 13.0 Gm/dL???Hct - 39.0 %???MCV - 89.9 femtoliters???MCH - 30.0 pg???MCHC - 33.3 g/dL???Platelet Count - 396 k/mm3???RDW-SD - 44.7 femtoliters???MPV - 9.7femtoliters???Nucleated RBC (Automated) - 0.0 #/100 WBC'S???Abs. NRBC - 0.0 k/mm3???Abs. Neut - 9.9 k /mm3???Abs. Lymph - 1.4 k/mm3???Abs. [place] - 0.5 k/mm3???Abs. Eo - 0.1 k/mm3???Abs. Baso - 0.0 k/mm3???Neut % - 82.9 %???Lymph % - 11.9 %???[place] % - 3.9 %???Eos % - 0.7 %???Baso % - 0.3 %???Imm Gran - 0.3 %???Abs. Imm Gran - 0.0 k/mm3 COVID-19 (2019 Novel Coronavirus) PCR (08/18/2022) ???COVID-19 PCR Specimen Source - NASAL???COVID-19 PCR Result - NEGATIVE COVID-19 (Novel Coronavirus), Rapid PCR (08/14/2022) ???COVID-19 by RT-PCR - NEGATIVE Creatinine (08/19/2022) ???Creatinine-Blood - 0.8 mg/dL???Estimated GFR Creatinine - 87 ML/MIN/1.73 M2 CRP (08/14/2022) ???C-Reactive Protein - 2.8 mg/dL Electrolytes (08/19/2022) ???Sodium - 133 mmol/L???Potassium - 5.2 mmol/L???Chloride - 97 mmol/L???Bicarbonate Level - 22 mmol/L???Anion Gap - 14 GLUCOSE POC (08/19/2022) ???Glucose, POC - 204 mg/dL Urinalysis w/hold for Urine Culture (08/15/2022) ???Appear/Color, Urine - YELLOW???Specific [place], Urine - 1.023???pH, Urine - 6.5???Albumin, Urine- 1+???Glucose, Urine - NEGATIVE???Ketones, Urine - NEGATIVE???Bilirubin, Urine - NEGATIVE???Hemoglobin, Urine - TRACE???Nitrite, Urine - POSITIVE???Leukocyte, Urine - 3+???Urobilinogen - NORMAL???WBC's, Urine - >182 /HPF? ?RBC's, Urine - 6 /HPF? ?Bacteria - MODERATE? ?Squamous Epith - <1 /HPF? ?Mucus - SLIGHT???Hold Urine Culture - Testing available 48 hours from time of collection. Allergies (NKA means No Known Allergies) Fish MetFORMIN (Eqv-Glumetza) Tylenol acetaminophen??(extremely itchy) shellfish Problems Active Problems??(27) Allergic rhinitis?? Anxiety and depression?? Anxiety disorder?? asthma?? Bipolar illness?? Cellulitis?? Chronic back pain?? chronic back pain?? CKD (chronic kidney disease)?? Depressive disorder?? FSGS (focal segmental glomerulosclerosis)?? GERD (gastroesophageal reflux disease)?? h/o appendectomy?? h/o oopherectomy?? Hyperlipidemia?? Hypertension?? hypertension?? Insomnia?? Insulin dependent type 2 diabetes mellitus?? Iron deficiency?? Morbid obesity?? Obese class II?? Overactive bladder?? Tobacco dependence syndrome?? Urinary incontinence?? Vitamin D deficiency?? Weakness?? Education Materials Below is the list of Educational Leaflet Providered with your Discharge Instructions. Valuables and Belongings I fully understand and agree that [facility] accepts no responsibility for all my personal [...] to send valuables and belongings home. ?? No Valuables/Belongings: No valuables/belongings present Date for Pt to Sign Valuables/Belongings: 08/15/22 10:05:00 ?? Other Discharge Information ? Case Management Discharge Plan?? Discharge Plan?? Discharge Agency Information?? Discharge Level of Care at Discharge: Homehealth/VNA Name of Agency #1: [facility] Discharge Transportation Arranged: [facility] [address] [facility] [phone] Service Categories #1: [facility] Mode of Transportation Arranged: Ambulance Service Comments #1: The nurses will call to arrange a time for the first visit. Discharge Arranged Transport Date/Time: 08/19/22 12:30:00 Name of Agency #2: [facility] Dis[facility] VNA/Hospice/Home Care: [facility] Service Categories #2: Physical Therapy ?? Service Comments #2: [facility] will continue to provide home physical therapy and will call to arrange a time to resume services. ?? Pulmonary Rehab Status?? Pulmonary Rehab Discharge Status?? Respiratory Rate: 18 br/min Respiratory Rate: 18 br/min ? Common Emergency Awareness Tips IS [...] are strongly encouraged to quit. Please call [facility] [employer] at [phone] or [phone]) (5461) or log in to [email or web address] for referrals to smoking cessation programs. ?? The National Suicide Prevention Hotline is available 10/04 if you or someone you know needs to find areason to keep living. By calling 4-218-907-Dsg.nr (5990) you'll be connected to a skilled, trained counselor at a crisis center in your area. INPATIENT DISCHARGE INSTRUCTIONS SIGNATURE PAGE MAOPHILOMENA SKYANOR Location:[facility] Registration Date and Time:08/14/2022 15:45 EST Primary Care Physician: Evelyn Bui MD, ASMITA MIX, have received the above patient education materials/instructions and have verbalized understanding. If ambulance or transport services are being used I further acknowledge being given a choice of service. ?? If you need to contact me, please call me at this number: . Patient/Landscape Crew Member Name: Patient/Landscape Crew Member Signature: Relationship to Patient: Witness Name/Signature: Date: MR Lumbar spine WO contrast BHSPowerscribe , CIS S: TRANSCRIBE Luc MELCHOR, Teresa M: VERIFY Event Display: Result: Authored Date: MRI Lumbar Spine W/O Contrast INDICATION: Reason: Cauda Equina Syndrome; Clinical Question(s): Cord Cauda Equina Compression; Order Comment: Please see Reference Text for complete list of contraindications Cord/Cauda Equina Compression TECHNIQUE: MRI of the lumbar spine was performed without intravenous contrast utilizing sagittal T1,sagittal T2, sagittal STIR, axial T1, and axial T2- weighted sequences. COMPARISON: MRI lumbar spine 07/19/2022. FINDINGS: NUMBERING: The study assumes 5 [id number] lumbar type vertebral bodies. ALIGNMENT, VERTEBRAE, MARROW, AND DISCS: Mild levoconvex curvature of the lumbar spine is noted. There is no significant subluxation in the sagittal plane. Vertebral body heights are preserved. Trace Modic 1 changes are again noted at L3-4. No suspicious marrow signal abnormality is seen. Multilevel Schmorl's nodes are noted. There is diffuse disc desiccation and mild loss of intervertebral disc spaces. CONUS: The conus is normal in signal and contour, with normal level of termination at L1. PARASPINAL TISSUES: Fibroid uterus is partially visualized. Multiple sigmoid diverticula are noted there is partial visualization of an 8 mm T2 hyperintense cyst in the posterior left hepatic lobe, as well as T2 hyperintense cysts in the left kidney measuring up to 2.1 cm in the upper pole. There is mild fatty atrophy of the posterior paraspinal musculature. Mild nonspecific edema is seen in the subcutaneous fat of the lower back. DETAILED FINDINGS BY LEVEL: T12-L1: Minimal central protrusion with annular fissure. No significant spinal canal stenosis or neural foramina. L1-L2: Minimal broad-based disc bulge. No significant canal stenosis or neural foraminal narrowing. L2-L3: Minimal broad-based disc bulge. No spinal canal stenosis. No right and minimal left neural foramina. L3-L4: Mild broad-based disc osteophyte complex with a small right subarticular disc extrusion with slight inferior migration. This narrows the right particular recess with mild crowding of traversing right L4 nerve roots. Otherwise no significant spinal canal stenosis. Mild right and minimal left neural foraminal narrowing. L4-L5: Minimal broad-based disc bulge. No significant spinal canal stenosis. Minimal bilateral neural foraminal narrowing. L5-S1: Mild broad-based is bulge. Mild left-sided facet hypertrophy. No significant spinal stenosis.Minimal left and no significant right neural foraminal narrowing. IMPRESSION: 1. Small right subarticular disc extrusion at L3-L4 with inferior migration and mild focal crowding of the traversing right L4 nerve roots. 2. No high-grade stenosis. No cauda equina compression. WSN: [id number] Ordering Physician: Reji Solano Dictated By: Teresa Calle MD Dictated Date/Time: 08/18/22 4:21 pm Reviewed By: Teresa Calle MD Signed By: Teresa Calle MD Signed Date/Time: 08/18/22 4:21 pm Transcribed By: LESLEE Transcribed Date/Time: 08/18/22 4:[address] Head WO contrast BHSPowerscribe , CIS S: TRANSCRIAshwin Marie MD: VERIFY Event Display: Result: Authored Date: CT Head/Brain W/O Contrast INDICATION: Reason: Other:; CVA; Clinical Question(s): Other:; CVA; Order Comment: TECHNIQUE: Noncontrast head CT using axial technique and reconstructed in axial and coronal planes. Iterative reconstruction techniques are used to optimize dose and image quality. CTDIvol Head: 46.60 mGy, DLP Head: 772 mGy*cm. COMPARISON: Head CT dated May 31, 2022. FINDINGS: International Sales Representative view findings, lines and tubes: None. BRAIN AND EXTRA-AXIAL SPACES: No parenchymal hemorrhage, midline shift, or mass effect. Stephenson-white matter differentiation is well preserved. No acute infarct. Negative insular ribbon sign. Atherosclerotic vascular calcification of the carotid arteries but negative hyperdense vessel sign. Ventricles, sulci, and basilar cisterns are normal. No white matter lesions. No subarachnoid hemorrhage. No subdural or epidural collection. CALVARIUM, SKULL BASE, AND SOFT TISSUES: No fractures or suspicious bony lesions. Mild paranasal sinus mucosal thickening with scattered mucous retention cysts. Probable prior functional endoscopic sinus surgery at least on the left. Trace fluid in the right mastoid air cells and middle ear cavity. Left mastoid air cells and middle ear are clear. Visualized orbits and globes are intact. The extracranial soft tissues are unremarkable. IMPRESSION: No acute intracranial pathology. WSN: [id number] Ordering Physician: Reji Solano Dictated By: Ashwin Basurto MD Dictated Date/Time: 08/14/22 5:08 pm Reviewed By: Ashwin Basurto MD Signed By: Ashwin Basurto MD Signed Date/Time: 08/14/22 5:08 pm Transcribed By: LESLEE Transcribed Date/Time: 08/14/22 5:[address] Lumbar spine WO contrast BHSPowerscribe , CIS S: Herson Hilliard MD: VERIFY Event Display: Result: Authored Date: CT Lumbar Spine W/O Contrast Reason: Trauma; pain; Clinical Question(s): Cord Cauda Equina Compression; Order Comment: CLINICAL QUESTION: Cord/Cauda Equina Compression TECHNIQUE: Thin section axial images were acquired through the lumbar spine. Bone and soft tissue algorithms were reconstructed along with coronal and sagittal reformats. Weight-based protocol using automatic tube modulation was used to optimize exposure parameters. CTDIvol Body: 58.00 mGy, DLP Body: 3472 mGy*cm. COMPARISON: None FINDINGS: International Sales Representative View Findings, Lines and Tubes: None. Spine: No fractures or bone lesion. Lumbar scoliosis convex to the left. Disc bulging throughout the lumbar spine, mild at L1-L2 and L2-L3. Mild to moderate spinal canal narrowing including lateral recess and foraminal narrowing at L3-L4. Mild broad disc bulging at L4-L5. Soft tissues: Likely stable left renal cyst. IMPRESSION: No acute fracture or subluxation. Degenerative changes as described above. WSN: [id number] Ordering Physician: Janice Leblanc Dictated By: Herson Callaway MD Dictated Date/Time: 08/16/22 8:33 pm Reviewed By: Herson Callaway MD Signed By: Herson Callaway MD Signed Date/Time: 08/16/22 8:33 pm Transcribed By: LESLEE Transcribed Date/Time: 08/16/22 8:27 pm Patient Care team information Care Team PersonnelName: Dariana Cross RN Position: [facility] RN Member Role: Primary Care Nurse Name: Jaqueline Mata RN Position: [facility] RN Member Role: Primary Care Nurse Name: Baldemar Egan MD Position: [facility] Renal Member Role: Lifetime Consulting Physician Address: Address: [address] [place] [address], [address] [place] [address] Name: Harriet Smith RN Position: [facility] RN Member Role: Primary Care Nurse Name: Leydi Aldana RN Position: [facility] RN Member Role: Primary Care Nurse Name: Sandie Danielle RN Position: [facility] RN Member Role: Primary Care Nurse Name: Peter Knight RN Position: [facility] RN Member Role: Primary Care Nurse Name: Katie Kirby RN Position: [facility] RN Member Role: Primary Care Nurse Name: Nohemy Castaneda RN Position: [facility] RN Member Role: Primary Care Nurse Name: Therese Millan RN Position: [facility] PCO RN Member Role: Primary Care Nurse Name: Zaki Laurent RN Position: [facility] RN Member Role: Primary Care Nurse Name: Crystal Lo RN Position: [facility] RN Member Role: Primary Care Nurse Name: Lynda Pittman RN Position: [facility] RN Member Role: Primary Care Nurse Name: Evelyn Bui MD Position: [facility] Physician (General Medicine) Member Role: PCP Address: Address: [address] [place], [place] [address] Name: Tre Wilkes RN Position: [facility] RN Member Role: Primary Care Nurse Name: [place] RN Position: [facility] RN Member Role: Primary Care Nurse Name: Deborah Way RN Position: [facility] RN Member Role: Primary Care Nurse Name: Floyd Escalona RN Position: [facility] RN Member Role: Primary Care Nurse Name: Mili Osman RN Position: [facility] RN Member Role: Primary Care Nurse Name: Lili Colón RN Position: [facility] RN Member Role: Primary Care Nurse Name: Chari Kearney RN Position: [facility] RN Member Role: Primary Care Nurse Name: Palak Miller RN Position: [facility] RN Member Role: Primary Care Nurse Name: Jann Joyce RN Position: [facility] RN Member Role: Primary Care Nurse Name: Maribeth Santos RN Position: [facility] RN Member Role: Primary Care Nurse Name: Joan Crews Position: [facility] RN Member Role: Primary Care Nurse Name: Marilee Real RN Position: [facility] RN Member Role: Primary Care Nurse Name: Alex Lizama RN Position: [facility] RN Member Role: Primary Care Nurse Name: Flavia Voss RN Position: [facility] ED RN W/OE and Tasks Member Role: Primary Care Nurse Name: Mariza Tariq RN Position: [facility] RN Member Role: Primary Care Nurse Name: Edith Goodwin RN Position: [facility] RN Member Role: Primary Care Nurse Name: Layne Aceves Position: [facility] RN Member Role: Primary Care Nurse Name: Madelin Cervantes RN Position: [facility] RN Member Role: Primary Care Nurse Name: Faith Noyola RN Position: [facility] RN Member Role: Primary Care Nurse Name: Dian Garcia RN Position: [facility] RN Member Role: Primary Care Nurse Name: Isela Tasng Position: [facility] RN Member Role: Primary Care Nurse Name: Isabelle Tyler RN Position: [facility] SN RN Member Role: Primary Care Nurse Name: Alaina Blackmon RN Position: [facility] RN Member Role: Primary Care Nurse Name: Justine aGrcia RN Position: [facility] RN Member Role: Primary Care Nurse Name: Susannah Iqbal RN Position: [facility] RN Member Role: Primary Care Nurse Name: Jimena Sinclair Position: [facility] RN Member Role: Primary Care Nurse Name: Arti Rodas RN Position: [facility] RN Member Role: Primary Care Nurse Name: Miesha Fan LPN Position: [facility] RN Member Role: Primary Care Nurse Name: Sabina Rodriguez RN Position: [facility] RN Member Role: Primary Care Nurse Name: Bethany Gonzalez RN Position: [facility] RN Member Role: Primary Care Nurse Name: Adelina Gallo RN Position: [facility] RN Member Role: Primary Care Nurse Name: Jamaal Cox MD Position: [facility] Renal MD Member Role: Lifetime Consulting Physician Address: Address: [address] [facility] [address] [facility] [address] Name: Milton Lopez RN Position: [facility] RN Member Role: Primary Care Nurse Name: Alva Salas RN Position: [facility] RN Member Role: Primary Care Nurse Name: Tianna Willett RN Position: [facility] RN Member Role: Primary Care Nurse Name: Therese Brand RN Position: [facility] RN Member Role: Primary Care Nurse Name: Itzel Morrissey RN Position: [facility] RN Josse Member Role: Primary Care Nurse Name: Sandie Mendoza LPN Position: [facility] RN Member Role: Primary Care Nurse Name: Dionte Mendoza RN Position: [facility] RN Member Role: Primary Care Nurse Name: Sandra Tobin RN Position: [facility] RN Member Role: Primary Care Nurse Name: Tamiko Nicole RN Position: [facility] RN Member Role: Primary Care Nurse Name: Romelia Nayak RN Position: [facility] RN Member Role: Primary Care Nurse Name: Madelin Fu RN Position: [facility] AMB Nurse Member Role: Primary Care Nurse Name: Rand Chacko RN Position: [facility] RN Member Role: Primary Care Nurse Name: Juancarlos Godoy MD Position: [facility] Renal MD Member Role: Lifetime Consulting Physician Address: Address: [address] [place] [address] [facility] [place], [place] [id number] Name: Delcid Alaina Position: [facility] RN Member Role: Primary Care Nurse Name: Delmy Robertson RN Position: [facility] RN Member Role: Primary Care Nurse Name: Andria Ortiz RN Position: [facility] RN Member Role: Primary Care Nurse Name: Shruthi Thompson RN Position: [facility] RN Member Role: Primary Care Nurse Name: Amarilys Thompson RN Position: [facility] RN Member Role: Primary Care Nurse Name: Donya Spaulding RN Position: [facility] RN Member Role: Primary Care Nurse Name: Dread Kline RN Position: [facility] RN Member Role: Primary Care Nurse Name: Sandie Ford RN Position: [facility] RN Member Role: Primary Care Nurse Name: Robert Vaughan RN Position: [facility] RN Member Role: Primary Care Nurse Name: Megan Snell RN Position: [facility] RN Member Role: Primary Care Nurse Name: Harris Wright RN Position: [facility] RN Member Role: Primary Care Nurse Name: Ayana Lomax RN Position: [facility] Terry Cloth Cutter Hand Member Role: Primary Care Nurse Name: Maximiliano Ching RN Position: [facility] RN Member Role: Primary Care Nurse Name: Geraldine Holt RN Position: [facility] RN Member Role: Primary Care Nurse Name: Constance Elliott Position: [facility] RN Member Role: Primary Care Nurse Name: Christopher Ramon Position: [facility] RN Member Role: Primary Care Nurse Name: Jarret DOMÍNGUEZ Attending Position: [facility] ED Medicine MD Name: Louise Hunt Position: [facility] ED OA Charge Member Role: ED Associate Name: Indu Magallanes RN Position: [facility] ED RN W/OE and Tasks Member Role: Patient Care Provider Name: Peter Montes Position: [facility] ED TA [facility] Care Team Related PersonsName: DARIA TATE Address: [address] [place] [address] Name: RAMEZMEY Romero Address: home [address] [place] [address]
[2022-09-17 11:19] VITALS: BP 152/75; PULSE 91; RESP 16; TEMP 36.9; O2SAT 96
--- NOTE | 2022-09-17 11:19 | ED_ITS ---
HPI - General Adult General Chief complaint: General Medical Stated complaint: NAUSEA,VOMITING,SOB,BACK PAIN,SEEN FOR SAME RECENT Time Seen by Provider: 09/17/22 10:56 Source: patient Limitations: no limitations History of Present Illness HPI narrative: This is a 52-year-old female who complains of abdominal pain and vomiting for few days. The pain is in the right lower abdomen. The patient has had repetitive vomiting, has not been able hold down much in the way of food or fluids. The patient does have history of diabetes and chronic kidney disease. She denies alcohol use, denies marijuana use. She states she previously did hav e her appendix out back in the early when she had a gynecologic surgery. She notes the pain is worse with cough or movement. She denies fever. Denies any chest pain or shortness of breath. She denies dysuria or urinary frequency. She denies having had prior symptoms which were similar, no history of any vomiting syndrome. The patient states that the the pain does radiate to her mid back. Pain is severe Related Data Home Medications Medication Instructions Recorded Confirmed amlodipine 10 mg tablet 10 mg PO DAILY 07/07/20 12/30/21 aspirin 81 mg tablet,delayed 81 mg PO DAILY 07/07/20 12/30/21 release bupropion HCl 300 mg 24 hr tablet, 300 mg PO DAILY 07/07/20 12/30/21 extended release chlorthalidone 25 mg tablet 25 mg PO DAILY 07/07/20 12/30/21 finasteride 5 mg tablet 5 mg PO DAILY 07/07/20 12/30/21 insulin aspart U-100 100 unit/mL See Rx Instructions .Route .COMPLEX 07/07/20 12/30/21 (3 mL) subcutaneous pen (Novolog Flexpen U-100 Insulin aspart) lisinopril 5 mg tablet 5 mg PO DAILY 07/07/20 12/30/21 loratadine 10 mg tablet 10 mg PO DAILY 07/07/20 12/30/21 lorazepam 2 mg tablet 1 tab PO TID PRN Anxiety 07/07/20 12/30/21 nabumetone 500 mg tablet 500 tab PO BID 07/07/20 12/30/21 nystatin 100,000 unit/gram topical 1 applic topical QID 07/07/20 12/30/21 powder ([facility]) oxybutynin chloride 10 mg 10 mg PO DAILY 07/07/20 12/30/21 tablet,extended release 24 hr propranolol 120 mg capsule,24 120 mg PO DAILY 07/07/20 12/30/21 hr,extended release rosuvastatin 40 mg tablet 40 mg PO BEDTIME 07/07/20 12/30/21 zolpidem 10 mg tablet 10 mg PO BEDTIME PRN Insomnia 07/07/20 12/30/21 fluticasone propionate 110 2 puff inhalation BID 04/08/21 12/30/21 mcg/actuation HFA aerosol inhaler (Flovent HFA) gabapentin 300 mg capsule 900 mg PO TID 04/08/21 12/30/21 semaglutide 7 mg tablet (Rybelsus) 1 tab PO DAILY 04/08/21 12/30/21 Lactobacillus rhamnosus GG 15 2 cap PO DAILY 12/30/21 12/30/21 billion cell sprinkle capsule (Culturelle) doxycycline hyclate 100 mg capsule 1 cap PO Q12H 12/30/21 12/30/21 ergocalciferol (vitamin D2) 1,250 50,000 unit PO QWEEK 12/30/21 12/30/21 mcg (50,000 unit) capsule (Vitamin D2) fluticasone propionate 50 1 spray intranasal DAILY 12/30/21 12/30/21 mcg/actuation nasal spray,suspension insulin degludec 100 unit/mL (3 80 unit subcut BEDTIME 12/30/21 12/30/21 mL) subcutaneous pen (Tresiba FlexTouch U-100 insulin) lamotrigine 25 mg tablet 200 mg PO BEDTIME 12/30/21 12/30/21 omeprazole 20 mg capsule,delayed 1 cap PO DAILY 12/30/21 12/30/21 release oxycodone 20 mg tablet 20 mg PO Q4H PRN Pain 12/30/21 12/30/21 oxycodone 30 mg tablet,crush 1 tab PO BID 12/30/21 12/30/21 resistant,extended release 12 hr (OxyContin) simethicone 125 mg chewable tablet mg PO BID PRN Gastric Reflux 12/30/21 Previous Rx's Medication Instructions Recorded metoclopramide HCl 10 mg tablet 10 mg PO Q6H PRN nausea and 02/14/22 (Reglan) vomiting #10 tabs ondansetron 4 mg disintegrating 4 mg PO Q8H PRN nausea and 02/14/22 tablet vomiting #7 tabs fidaxomicin 200 mg tablet 200 mg PO BID 10 days #20 tabs 05/13/22 ondansetron 4 mg disintegrating 4 mg PO Q6H PRN nausea and 09/17/22 tablet vomiting #10 tabs Allergies Allergy/AdvReac Type Severity Reaction Status Date / Time metformin Allergy Severe Unknown Verified 07/07/20 08:27 acetaminophen [From TYLENOL] Allergy Unknown HIVES Verified 07/07/20 08:27 clonazepam [From KLONOPIN] Allergy Unknown HIVES Verified 07/07/20 08:27 Review of Systems Review of Systems: Yes all other systems are reviewed and are negative Constitutional: Constitutional: Reports as per HPI and Denies fever(s) Eyes: Eyes: Reports as per HPI and Reports no additional eye complaints ENT: Reports system reviewed and no additional complaints, except as documented, Reports as per HPI, Denies nasal congestion, Denies nasal discharge and Denies sore throat Cardiovascular: Cardiovascular: Reports as per HPI, Denies chest pain and Denies dyspnea Respiratory: Respiratory: Reports as per HPI, Denies cough and Denies dyspnea Gastrointestinal: Gastrointestinal: Reports as per HPI, Reports abdominal pain, Denies diarrhea, Reports nausea and Reports vomiting Genitourinary: Genitourinary: Reports as per HPI, Denies hematuria, Denies u rinary frequency and Denies dysuria Musculoskeletal: Musculoskeletal: Reports no additional musculoskeletal complaints, Reports back pain and Denies numbness Integumentary/Breasts: Skin/Breast: Reports as per HPI and Denies rash Neurologic: Reports as per HPI, Denies focal weakness and Denies numbness Psychiatric: Psychiatric: Reports no additional psychiatric complaints and Reports as per HPI Endocrine: Endocrine: Reports no additional endocrine complaints and Reports as per HPI Hematologic/Lymphatic: Hematologic/Lymphatic: Reports no additional hematologic/lymphatic complaints, Reports as per HPI and Reports other (No peripheral edema) [facility] Past Medical History Medical History (Updated 09/17/22 @ 16:16 by Guanaco Nolan MD) Agoraphobia Allergic rhinitis Anxiety and depression Asthma Bipolar illness Borderline personality disorder Chronic back pain CKD (chronic kidney disease) Depression Diabetes FSGS (focal segmental glomerulosclerosis) GERD (gastroesophageal reflux disease) Hypercalcemia Hyperlipidemia Hypertension Insomnia Insulin dependent type 2 diabetes mellitus Iron deficiency Lower back pain Morbid obesity Obesity Overactive bladder Tobacco dependence syndrome Urinary incontinence Vitamin D deficiency Surgical History H/O oophorectomy History of appendectomy Social History Social History Household Members: Caregiver Housing: Apartment Do you presently have visiting nurse or other home services: Yes Alcohol intake: current Patient Tobacco Use Status: Tobacco use Unknown Tobacco use type: Cigarette Cigarette Packs Per Day: 1 Cigarettes Per Day: 20.0 Smoked in Last 30 Days: Yes Use of substances other than those prescribed or required for medical reasons: No Advance Directives: Yes Advance Directives on File: Yes Advance Directives Date on File: 04/09/21 service: No Current occupational status: disabled Physical Exam ED Vital Signs: Vital Signs - 24 hr 09/17/22 11:00 09/17/22 11:19 Temperature 98.2 F 98.4 F Pulse Rate 99 91 Respiratory Rate 21 H 16 Blood Pressure 173/55 H 152/75 H Pulse Oximetry 96 96 Oxygen Delivery Method Room Air Room Air BMI result Body Mass Index 45.1 Const Other: Patient lying on side, moderately obese, alopecia present General: no acute distress Orientation/consciousness: patient oriented x3 HENMT Head: Yes normal to inspection General nose exam: Normal external nose present Mouth: moist mucous membranes Throat: Yes posterior oropharynx normal, Yes tonsils normal and Yes uvula midline Eyes Eyelids: Yes eyelids normal Conjunctivae: conjunctivae normal Pupils: Equal, round and reactive pupils present Neck Neck: Yes supple Resp Effort & Inspection: normal respiratory effort Auscultation: clear to auscultation bilaterally Cardio Rate: regular rate Rhythm: regular rhythm Heart sounds: S1 normal heart sound present, S2 normal heart sound present, no gallops, no murmurs and no rubs GI Inspection: No distended Palpation (GI): Soft to palpation and Tenderness to palpation present (GI) in the RLQ Auscultation: normal bowel sounds Skin General skin exam: other (Warm and dry) Neuro General: patient oriented x3 and CN's II-XI intact bilaterally Cranial nerves: Yes Equal, round and reactive pupils present Extrem General: Yes no pedal edema Psych Affect: normal affect Attitude: cooperative Medications Administered Discontinued Medications Generic Name Dose Route Start Last Admin Trade Name Freq PRN Reason Stop Dose Admin Sodium Chloride 1,000 mls @ 999 mls/hr 09/17/22 11:15 09/17/22 12:30 Ns IV 09/17/22 12:15 Infused .Q1H1M MARITZA Infusion Iohexol 100 ml 09/17/22 14:18 09/17/22 14:18 Iohexol 350 Mg/Ml 100 Ml Infus..Btl IV 09/17/22 14:19 85 ml ONCE ONE Administration Lorazepam 1 mg 09/17/22 15:32 09/17/22 15:52 Lorazepam 2 Mg/Ml Vial IVPUSH 09/17/22 15:33 1 mg ONCE ONE Administration Metoclopramide HCl 10 mg 09/17/22 15:32 09/17/22 15:52 Metoclopramide Hcl 10 Mg/2 Ml Vial IVPUSH 09/17/22 15:33 10 mg ONCE ONE Administration Morphine Sulfate 4 mg 09/17/22 11:08 09/17/22 11:31 Morphine Sulfate 4 Mg/Ml Cartridge IVPUSH 09/17/22 11:09 4 mg ONCE ONE Administration Protocol Ondansetron HCl 4 mg 09/17/22 11:08 09/17/22 11:31 Ondansetron Hcl 4 Mg/2 Ml Vial IVPUSH 09/17/22 11:09 4 mg ONCE ONE Administration Medical Decision Making Medical Decision Making [facility] Narrative: Patient presents with few days of vomiting, also complains of abdominal pain. CT showed no concerning findings. Patient's BUN and creatinine were normal, no suggestion of dehydration. Urinalysis was negative with a specific gravity was mildly elevated. Patient has had similar presentation in the past. Patient was treated with Zofran 4 mg IV, normal saline 1 L IV, morphine 4 mg IV. Later she was given lorazepam 1 mg IV and Reglan 10 mg IV. Patient will be prescribed ondansetron and is encouraged to drink clear liquids. She may have diabetic gastroparesis Differential Diagnosis Differential Diagnoses: The differential diagnosis associated with the presentation includes Diabetic gastroparesis, gastroenteritis, cyclic vomiting syndrome, appendicitis, cholecystitis, perforated viscus, pancreatitis Lab Data [facility] Lab Attestation statement: I reviewed the patient's lab results. Result Diagrams: 09/17/22 11:35 09/17/22 11:35 Labs: Lab Results 09/17/22 09/17/2209/17/22 Range/Units 11:35 11:35 15:57 WBC 11.7 H (4.8-10.8) X10*3/uL RBC 4.15 L (4.20-5.50) X10*6/uL Hgb 12.1 (12.0-16.0) g/dl Hct 36.6 L (37.0-47.0) % MCV 88.2 (80.0-98.0) fL MCH 29.2 (27.0-33.0) pg MCHC 33.1 (31.0-35.0) g/dl RDW 13.4 (11.0-16.0) % Plt Count 288 (160-400) X10*3/uL MPV 9.6 (9.4-12.3) fL Immature Gran % (Auto) 0.3 (0.0-0.4) % Neut % (Auto) 87.7 H (45-73) % Lymph % (Auto) 7.9 L (20-40) % Hendricks % (Auto) 3.3 (2-11) % Eos % (Auto) 0.4 (0-4) % Baso % (Auto) 0.4 (0-2) % Lymph # (Auto) 0.9 L (1.2-4.9) X10*3/uL Hendricks # (Auto) 0.4 (0.1-1.2) X10*3/uL Eos # (Auto) 0.1 (0.0-0.4) X10*3/uL Baso # (Auto) 0.1 (0.0-0.2) X10*3/uL Abs Immat Gran (auto) 0.03 (0.00-0.03) X10*3/uL Absolute Neuts (auto) 10.2 H (2.0-8.3) x10*3/uL Absolute Nucleated RBC 0.000 (0.0-0.012) X10*3/uL Nucleated RBC % (auto) 0.0 (0.0-0.2) /100WBC Sodium 136 (135-145) mmol/L Potassium 4.7 (3.3-5.1) mmol/L Chloride 103 (96-108) mmol/L Carbon Dioxide 22 (22-29) mmol/L Anion Gap 16 (12-20) BUN 16 (9-16) mg/dL Creatinine 0.89 (0.5-1.4) mg/dL Estim Creat Clear Calc 100.8 Estimated GFR > 60 Random Glucose 227 H (60-115) mg/dL Calcium 9.7 (8.4-10.2) mg/dL Total Bilirubin 0.3 (0.0-1.0) mg/dL AST 14 (5-31) U/L ALT 18 (0-31) U/L Alkaline Phosphatase 177 H (39-117) U/L Total Protein 7.1 (6.5-8.0) g/dL Albumin 4.0 (3.5-5.0) g/dL Lipase 10 (8-78) U/L Urine Color Yellow Urine Appearance Clear Urine pH 6.0 (5.0-9.0) Ur Specific [place] >= 1.030 H (1.005-1.025) Urine Protein 30 (1+) H (Neg-Trace) mg/dL Urine Glucose (UA) Negative (Negative) mg/dL Urine Ketones Negative (Negative) mg/dL Urine Blood Negative (Negative) Urine Nitrite Negative (Negative) Ur Leukocyte Esterase Negative (Negative) Urine RBC 0-2 (0-2) /HPF Urine WBC 0-5 (0-5) /HPF Ur Squamous Epith Cells 3-5 (0-2) /HPF Urine Bacteria None Seen (None Seen) Hyaline Casts 0-2 (0-2) /LPF Radiology Impression Discussion of test interpretation with radiology: I have reviewed the radiologist's reading. Radiologist Impression: IMPRESSION: 1.? No acute intra-abdominal process. 2.? Sigmoid diverticulosis. No evidence of acute diverticulitis. ? Discharge Plan Discharge Clinical Impression: Abdominal pain, Vomiting Patient Disposition: Home, Self-Care Instructions: Acute Nausea and Vomiting (ED), Abdominal Pain (ED) Additional Instructions: Try to keep down clear liquids a little bit at a time. Follow up with her primary care physician. Use the ondansetron as prescribed for nausea. Return for any new or worsening symptoms Prescriptions: New ondansetron 4 mg tablet,disintegrating 4 mg PO Q6H PRN (Reason: nausea and vomiting) Qty: 10 0RF No Action nystatin [Nyamyc] 100,000 unit/gram powder 1 applic topical QID insulin aspart U-100 [Novolog Flexpen U-100 Insulin] 100 unit/mL (3 mL) insulin pen See Rx Instructions .ROUTE .COMPLEX Protocol: Insulin Correction Scale Less than or equal to 110 ---- Give (units): 0 111 to 150 Give (units): 0 151 to 200 Give (units): 2 201 to 250 Give (units): 4 251 to 300 Give (units): 6 301 to 350 Give (units): 8 Greater than 350 Give (units): 10 Call MD if Blood Glucose > : 350 Rx Instructions: Patient did not know her scale other than the fact that it changed recently oxybutynin chloride 10 mg tablet extended release 24hr 10 mg PO DAILY chlorthalidone 25 mg tablet 25 mg PO DAILY aspirin 81 mg tablet,delayed release (DR/EC) 81 mg PO DAILY lorazepam 2 mg tablet 1 tab PO TID PRN (Reason: Anxiety) amlodipine 10 mg tablet 10 mg PO DAILY lisinopril 5 mg tablet 5 mg PO DAILY propranolol 120 mg capsule,extended release 24 hr 120 mg PO DAILY zolpidem 10 mg tablet 10 mg PO BEDTIME PRN (Reason: Insomnia) finasteride 5 mg tablet 5 mg PO DAILY loratadine 10 mg tablet 10 mg PO DAILY nabumetone 500 mg tablet 500 tab PO BID rosuvastatin 40 mg tablet 40 mg PO BEDTIME bupropion HCl 300 mg tablet extended release 24 hr 300 mg PO DAILY gabapentin 300 mg capsule 900 mg PO TID Rybelsus 7 mg tablet 1 tab PO DAILY Flovent HFA 110 mcg/actuation HFA aerosol inhaler 2 puff inhalation BID doxycycline hyclate 100 mg capsule 1 cap PO Q12H lamotrigine 25 mg tablet 200 mg PO BEDTIME omeprazole 20 mg capsule,delayed release(DR/EC) 1 cap PO DAILY simethicone 125 mg tablet,chewable PO BID PRN (Reason: Gastric Reflux) ergocalciferol (vitamin D2) [Vitamin D2] 1,250 mcg (50,000 unit) capsule 50,000 unit PO QWEEK fluticasone propionate 50 mcg/actuation spray,suspension 1 spray intranasal DAILY oxycodone 20 mg tablet 20 mg PO Q4H PRN (Reason: Pain) Culturelle 15 billion cell capsule, sprinkle 2 cap PO DAILY Tresiba FlexTouch U-100 100 unit/mL (3 mL) insulin pen 80 unit subcut BEDTIME oxycodone [OxyContin] 30 mg tablet,oral only,ext.rel.12 hr 1 tab PO BID ondansetron 4 mg tablet,disintegrating 4 mg PO Q8H PRN (Reason: nausea and vomiting) Qty: 7 0RF metoclopramide HCl [Reglan] 10 mg tablet 10 mg PO Q6H PRN (Reason: nausea and vomiting) Qty: 10 0RF fidaxomicin 200 mg tablet 200 mg PO BID 10 Days Qty: 20 0RF
[2022-09-17] MEDS: Morphine Sulfate 4 MG/ML CARTRIDGE IVPUSH (11:31)
[2022-09-17] MEDS: 0.9 % Sodium Chloride 1,000 ML 999 ML IV (11:31)
[2022-09-17] MEDS: ondansetron HCL 4 MG/2 ML VIAL IVPUSH (11:31)
[2022-09-17 11:40] LABS: MANUAL DIFF FLAG NO
[2022-09-17 11:51] LABS: Basophils Absolute Auto 0.1 X10*3/uL (0.0-0.2); Basophils Percent Auto 0.4 % (0-2); Eosinophils Absolute Auto 0.1 X10*3/uL (0.0-0.4); Eosinophils Percent Auto 0.4 % (0-4); Hematocrit 36.6 % (37.0-47.0); Hemoglobin 12.1 g/dl (12.0-16.0); Imm Gran Abs Auto 0.03 X10*3/uL (0.00-0.03); Imm Gran Pct Auto 0.3 % (0.0-0.4); Lymphocytes Absolute Auto 0.9 X10*3/uL (1.2-4.9); Lymphocytes Percent Auto 7.9 % (20-40); Mean Corpuscular HGB Conc 33.1 g/dl (31.0-35.0); Mean Corpuscular Hemoglobin 29.2 pg (27.0-33.0); Mean Corpuscular Volume 88.2 fL (80.0-98.0); Mean Platelet Volume 9.6 fL (9.4-12.3); Monocytes Absolute Auto 0.4 X10*3/uL (0.1-1.2); Monocytes Percent Auto 3.3 % (2-11); Neutrophils Absolute Auto 10.2 x10*3/uL (2.0-8.3); Neutrophils Percent Auto 87.7 % (45-73); Platelet Count 288 X10*3/uL (160-400); Red Blood Count 4.15 X10*6/uL (4.20-5.50); Red Cell Distribution Width 13.4 % (11.0-16.0); White Blood Count 11.7 X10*3/uL (4.8-10.8)
[2022-09-17 12:11] LABS: Alanine Aminotransferase 18 U/L (0-31); Alkaline Phosphatase 177 U/L (39-117); Anion Gap 16 (12-20); Aspartate Amino Transferase 14 U/L (5-31); Bilirubin Total 0.3 mg/dL (0.0-1.0); Blood Urea Nitrogen 16 mg/dL (9-16); Calcium 9.7 mg/dL (8.4-10.2); Carbon Dioxide 22 mmol/L (22-29); Chloride 103 mmol/L (96-108); Creatinine Clr Calc Pharmacy 100.8; Estimated Glomerular Filt Rate > 60; Glucose Random 227 mg/dL (60-115); Lipase 10 U/L (8-78); Potassium 4.7 mmol/L (3.3-5.1); Sodium 136 mmol/L (135-145); Total Protein 7.1 g/dL (6.5-8.0)
[2022-09-17] MEDS: iohexoL 350 MG/ML 100 ML INFUS..BTL IV (14:18)
[2022-09-17] MEDS: LORazepam 2 MG/ML VIAL 1 MG IVPUSH (15:52)
[2022-09-17] MEDS: Metoclopramide HCl 10 MG/2 ML VIAL IVPUSH (15:52)
[2022-09-17 16:06] LABS: Appearance Urine Clear; Color Urine Yellow; Glucose Urine UA Negative (Negative); Leukocyte Esterase Urine Negative (Negative); Nitrite Urine Negative (Negative); Specific Gravity - Urine >= 1.030 (1.005-1.025); UMIC TRIGGER UACC YES; Urine Blood Negative (Negative); Urine Ketones Negative (Negative); Urine Protein 30 (1+) mg/dL (Neg-Trace)
[2022-09-17 16:12] LABS: Bacteria Urine None Seen (None Seen); Hyaline Casts Urine 0-2 /LPF (0-2); RBC Urine 0-2 /HPF (0-2); WBC Urine 0-5 /HPF (0-5)
--- NOTE | 2022-09-17 17:45 | PC.NURSE ---
patient up for discharge but remains difficult d/c d/t inability to get home. Resource RN aware, Md aware.
--- NOTE | 2022-09-17 18:18 | PC.NURSE ---
pt agitated d/t inability of [facility] to provide patient a ride home, pt self removed IV, ambulated out of ED with steady gait
== END 2022-09-17 18:17 | disposition home or self-care (01) ==
PROVIDERS: Emergency Provider Emergency Medicine; PCP Internal Medicine
DX: R10.31 Right lower quadrant pain (principal); R11.10 Vomiting, unspecified; E11.22 Type 2 diabetes mellitus with diabetic chronic kidney disease; I12.9 Hypertensive chronic kidney disease with stage 1 through stage 4 chronic kidney disease, or unspecified chronic kidney disease; N18.9 Chronic kidney disease, unspecified; E66.9 Obesity, unspecified; Z68.42 Body mass index [BMI] 45.0-49.9, adult; Z79.899 Other long term (current) drug therapy; Z79.4 Long term (current) use of insulin; Z79.02 Long term (current) use of antithrombotics/antiplatelets
CPT/HCPCS: 36415; 74177; 80053; 81001; 83690; 85025; 96361; 96374; 96375; 99284; J2060; J2270; J2405; J2765; Q9967